=== PATIENT | female | born 1925 | race Caucasian/White ===

== ENCOUNTER 2017-06-03 11:04 | Inpatient (IN) | payer MEDICARE, BC ==
[~2017-06-03] VITALS: Ht 154.9 cm; Wt 52.5 kg
[~2017-06-03 11:04] MED LIST: AMLO5TAB96 PO; ATOR10 PO; CARB45TA OR; CEPH500 PO; ELTR75TA OR; FOLI5CAP PO; LACTCAP7 PO; LANS30 PO; LEVO.05 PO; LORTA5 PO; LOSA100T PO; METO50TA PO; METR-1 PO; MULT400T OR; OSCA200T PO; PERP2TAB PO; TAB-TAB PO; WARF2TAB PO
--- NOTE | 2017-06-03 11:47 | RADRPT ---
EXAM DATE/TIME: 06/03/2017 11:30 [facility] COMPARISON: No previous studies available for comparison. INDICATIONS : Pre Procedure Cardiac Cath. Evaluate for pneumonia, pneumothorax, and communicable diseases. MEDICAL HISTORY : None. SURGICAL HISTORY : Pacemaker. ENCOUNTER: Initial ACUITY: 1 day PAIN SCORE: 0/10 LOCATION: Bilateral chest FINDINGS: A single view of the chest demonstrates the lungs to be symmetrically aerated without evidence of mas s, infiltrate or effusion. There is some chronic pleural thickening in both apices. The heart size i s mildly enlarged.. There is a pacemaker overlying the left chest. Osseous structures are intact. CONCLUSION: No acute disease. Aleksey Au MD on June 03, 2017 at 11:44 Board Certified Radiologist. This report was verified electronically.
[2017-06-03] MEDS ORDERED: diphenhydrAMINE HCL 50 MG CAP PO SCH (12:00)
[2017-06-03 12:03] VITALS: BP 162/81; PULSE 71; RESP 18; TEMP 98.1; O2SAT 96
[2017-06-03] MEDS ORDERED: CARD120C4 PO (12:24)
[2017-06-03] MEDS ORDERED: LEVO50TA4 PO (12:24)
[2017-06-03] MEDS ORDERED: METO50TA PO (12:24)
[2017-06-03] MEDS ORDERED: MULT400T PO (12:24)
[2017-06-03] MEDS ORDERED: FOLI400T PO (12:24)
[2017-06-03] MEDS ORDERED: POTA10CA PO (12:24)
[2017-06-03] MEDS ORDERED: DIGO0.127 PO (12:24)
[2017-06-03] MEDS ORDERED: FURO20TA PO (12:24)
[2017-06-03] MEDS ORDERED: LIPI10TA PO (12:24)
[2017-06-03] MEDS ORDERED: LOSA50TA PO (12:24)
[2017-06-03] MEDS ORDERED: WARF-20 PO (12:24)
[2017-06-03] MEDS ORDERED: [UNRECOGNIZED DRUG - CODE] PO (12:24)
[2017-06-03] MEDS ORDERED: SERT25TA83 PO (12:24)
[2017-06-03] MEDS ORDERED: GUAI1TAB18 (12:24)
[2017-06-03 12:31] LABS: BASOPHIL % 0.4 % (0.0-2.0); EOSINOPHIL # 0.1 TH/MM3 (0-0.4); EOSINOPHIL % 0.6 % (0.0-4.0); HEMATOCRIT 42.2 % (35.0-46.0); HEMO FLAGS DIFF FINAL; LYMPH % 10.2 % (9.0-44.0); LYMPHOCYTE # 1.3 TH/MM3 (1.0-4.8); MEAN CELL VOLUME 87.3 FL (80.0-100.0); MEAN CORPUSCULAR HEMOGLOBIN 28.5 PG (27.0-34.0); MEAN CORPUSCULAR HGB CONC 32.7 % (32.0-36.0); MONO % 8.5 % (0.0-8.0); NEUT % 80.3 % (16.0-70.0); PLATELET COUNT 225 TH/MM3 (150-450); RED BLOOD COUNT 4.84 MIL/MM3 (4.00-5.30); WHITE BLOOD COUNT 12.5 TH/MM3 (4.0-11.0)
[2017-06-03 12:37] LABS: APTT (PATIENT) 30.3 SEC (24.3-30.1); INTERNATIONAL NORMALIZED RATIO 1.4 RATIO; PROTHROMBIN TIME - PATIENT 15.2 SEC (9.8-11.6)
[2017-06-03 12:39] LABS: BICARBONATE 31.5 MEQ/L (21.0-32.0); POTASSIUM 3.5 MEQ/L (3.5-5.1)
[2017-06-03 12:58] LABS: BLOOD, URINE NEG (NEG); COMMENT (UR) CULT NOT INDICATED; CULTURE IF INDICATED CULT NOT INDICATED; GLUCOSE,URINE NEG (NEG); KETONE, URINE NEG (NEG); MUCUS URINE FEW /lpf (OCC); NITRITE,URINE NEG (NEG); URINE COLOR LIGHT-YELLOW (YELLW/STRAW)
[2017-06-03] MEDS ORDERED: IOHEXOL 350 MG/ML 50 ML BTL (for Cath Lab) OTHER ONE (13:20)
[2017-06-03] MEDS ORDERED: MIDAZOLAM HCL 2 MG/2 ML VIAL ONE ×2 (13:32→14:50)
[2017-06-03] MEDS ORDERED: HEPARIN-NS/PF INJ 1,000 ML ONE (13:32)
[2017-06-03] MEDS ORDERED: SODIUM CHLORID 0.9% 500 ML INJ 500 ML ONE (13:32)
[2017-06-03] MEDS ORDERED: PHENYLEPHRINE HCL 10 MG/ML VIAL ONE ×4 (14:32→18:39)
[2017-06-03] MEDS ORDERED: DOPamine INJ PREMIX 500 ML ONE (14:39)
--- NOTE | 2017-06-03 14:58 | RADRPT ---
EXAM DATE/TIME: 06/03/2017 14:42 [facility] COMPARISON: CHEST SINGLE AP, June 03, 2017, 11:30. INDICATIONS : Short of breath. MEDICAL HISTORY : None. SURGICAL HISTORY : None. ENCOUNTER: Initial ACUITY: 1 day PAIN SCORE: Non-responsive. LOCATION: Bilateral chest FINDINGS: A single view of the chest demonstrates the lungs demonstrates interval development of diffuse inters titial prominence and airspace disease. Heart is mildly enlarged. Pacemaker is in stable position. Left costophrenic angle is blunted. CONCLUSION: Interval development of diffuse interstitial alveolar infiltrate characteristic of pulmonary edema. Small left effusion Edgar Lema MD on June 03, 2017 at 14:55 Board Certified Radiologist. This report was verified electronically.
[2017-06-03 15:05] VITALS: O2SAT 87
[2017-06-03 16:40] VITALS: O2SAT 88
[2017-06-03] MEDS ORDERED: ROCURONIUM INJ 50 MG/5 ML SYRINGE IV PUSH ONE (16:42)
[2017-06-03] MEDS ORDERED: ROCURONIUM INJ 50 MG/5 ML VIAL ONE (16:58)
[2017-06-03] MEDS ORDERED: ROCURONIUM INJ 50 MG/5 ML VIAL IV ONE (17:00)
--- NOTE | 2017-06-03 17:03 | PD.CONS ---
[facility] Service Critical Care Medicine Consult Requested By Dr. Corrales Reason for Consult Hemorrhagic shock Pulmonary artery rupture Massive hemoptysis Acute hypoxemic respiratory failure Anemia requiring transfusion Primary Care Physician Jamie Funk MD History of Present Illness I was emergently called to labor standards director by Dr. Corrales. Ms. Mahoney who is 89 yo female with history of severe aortic stenosis was undergoing left and right heart catheter for TAVR evaluation. With right heart catheterization patient developed acute massive hemoptysis with shock secondary to acute rupture of pulmonary artery. Patient was intubated by Dr. Potter and ETT was advance to Right lung for selective right lung ventilation due to massive hemorrhage from Left lung. On my arrival to labor standards director, patient was rapidly dropping blood pressure. Dopamine was already started. I ordered Shantanu-Synephrine, at 300 mcg/ m in an attempt to increase MAP and also increase the pulmonary vasoconstriction. Levophed was also added to maintain blood pressure and rapidly titrated up. Emergency release blood initially 3 units was ordered stat along with 2 units of FFP, 1 unit of platelet. I also emergently contacted Dr. Vásquez was in the office. (Dr. Bedoya the on-call CT surgeon was operating). While on Levophed Shantanu-Synephrine and dopamine, patient developed coarse V. fib/V. tach, received brief CPR, and was DC cardioverted 1 with return of spontaneous circulation and sinus rhythm. I discussed with Dr. Corrales and anesthesiologist, I also contacted Dr. Josue from invasive radiology.Dr. Josue immediately arrived to the labor standards director. Dr. Abdelrahman francis performed PARVIN which showed vigorous LV contraction but cavity was empty. Received Continuous massive fluid resuscitation with multiple crystalloid boluses, bicarbonate and calcium. Blood arrived and initially 3 units of PRBC, 2 units of 1 unit of platelets was given with calcium total 3 g given after blood transfusion. Because of persistent hypotension, additional 2 units of PRBC was given. While I resuscitated the patient, Dr. Corrales and Dr. Jennings performed right heart cath, identified bleeding of a small branch in the left pulmonary artery. They put put in a 6 coils in the lower left lower pulmonary artery followed with Gelfoam closing the perforation. Review of Systems ROS Limitations: Unresponsive Past Family Social History Allergies: Coded Allergies: Sulfa (Sulfonamide Antibiotics) (Unverified Allergy, Severe, 06/03/17) promethazine (Unverified Allergy, Severe, 06/03/17) adhesive (Unverified Allergy, Unknown, 06/03/17) Past Medical History Unable to obtain at this time other than severe Past Surgical History Unable to obtain at this time Reported Medications Unable to obtain at this time Active Ordered Medications Reviewed Family History Unable to obtain Social History Unable to obtain Physical Exam Vital Signs Vital Signs Date Time Temp Pulse Resp B/P (MAP) Pulse Ox O2 Delivery O2 Flow Rate FiO2 06/03/17 12:03 98.1 71 18 162/81 (108) 96 Physical Exam GENERAL: Intubated unresponsive, neuromuscularly paralyzed anesthesia SKIN: Skin /dry. ENT: Orotracheally intubated. Massive of hemoptysis from ETT NECK: Trachea midline. CARDIOVASCULAR: Regular rate and rhythm. Profound shock on 3 pressors RESPIRATORY: Bilateral coarse rhonchi and crackles. Diminished air entry in the left lung due to GASTROINTESTINAL: Abdomen distended MUSCULOSKELETAL: Bilateral groin Cordis and sheath NEUROLOGICAL: Patient is intubated, reason neuromuscular paralysis limits exam Laboratory Laboratory Tests Test 06/03/17 11:45 06/03/17 11:55 Urine Color LIGHT-YELLOW Urine Turbidity CLEAR Urine pH 5.0 Urine Specific [place] 1.010 Urine Protein NEG Urine Glucose (UA) NEG Urine Ketones NEG Urine Occult Blood NEG Urine Nitrite NEG Urine Bilirubin NEG Urine Urobilinogen LESS THAN 2.0 Urine Leukocyte Esterase NEG Urine WBC LESS THAN 1 Urine Mucus FEW Microscopic Urinalysis Comment CULT NOT INDICATED White Blood Count 12.5 Red Blood Count 4.84 Hemoglobin 13.8 Hematocrit 42.2 Mean Corpuscular Volume 87.3 Mean Corpuscular Hemoglobin 28.5 Mean Corpuscular Hemoglobin Concent 32.7 Red Cell Distribution Width 14.0 Platelet Count 225 Mean Platelet Volume 8.3 Neutrophils (%) (Auto) 80.3 Lymphocytes (%) (Auto) 10.2 Monocytes (%) (Auto) 8.5 Eosinophils (%) (Auto) 0.6 Basophils (%) (Auto) 0.4 Neutrophils # (Auto) 10.0 Lymphocytes # (Auto) 1.3 Monocytes # (Auto) 1.1 Eosinophils # (Auto) 0.1 Basophils # (Auto) 0.0 CBC Comment DIFF FINAL Differential Comment Prothrombin Time 15.2 Prothromb Time International Ratio 1.4 Activated Partial Thromboplast Time 30.3 Blood Urea Nitrogen 19 Creatinine 0.90 Random Glucose 87 Albumin 4.2 Calcium Level 9.2 Sodium Level 137 Potassium Level 3.5 Chloride Level 98 Carbon Dioxide Level 31.5 Anion Gap 8 Estimat Glomerular Filtration Rate 59 Result Diagram: 06/03/17 1155 06/03/17 1155 Assessment and Plan Assessment and Plan A/P PLEASE SEE HPI ALSO NEURO: Keep on Versed and fentanyl for sedation and vent synchrony Neuromuscular paralysis as needed RESP: Massive hemoptysis Left peripheral pulmonary artery rupture with massive hemorrhage Acute hypoxemic respiratory failure Small R apical pneumothorax - PC/AC mechanical ventilation PEEP of 8, - Small apical pneumothorax may need chest tube, discussed with Dr. Frost - s/p Bronchoscopy with removal of blood predominantly from L lung - DuoNeb q 6hours and PRN - Plan for R chest tube CV/Heme: Profound hemorrhagic shock Anemia requiring transfusion Severe - Initially was on Levophed dopamine and Shantanu-Synephrine - Currently only on Shantanu-Synephrine. Titrate to keep map above 65 - Shantanu-Synephrine may also help with pulmonary vasoconstriction, which may help control the bleed - Trend lactic acid - Received 6 units of emergency release blood, 2 units of FFP and one of platelets - Multiple crystalloid boluses given - PARVIN normal LV contractility, volume depletion GI: - Nothing by mouth, OGT tube, IV Protonix : - Monitor renal function closely. Payne catheter. Urine output adequate ID: - Margaret Cath antibiotics per Dr. Corrales ENDO: - Replace electrolytes per protocol PROPH: - Bilateral lower extremity SCDs. IV Protonix. Chemical DVT prophylaxis contraindicated LINES: - Bilateral cordis in place CC time 135 min excluding procedure Code Status Full Discussed Condition With Thalia Hall. Lukas and Tanika Padron MD Jun 03, 2017 17:03
--- NOTE | 2017-06-03 17:04 | CATHPROC ---
[facility] HIS Report Study Information Study Number Admission Scheduled Start Study Start [id number] Jun 03 2017 11:04AM 06/03/2017 Jun 03 2017 1:20PM [facility] Cardiac Catheterization Admit Source Facility Department Other [facility] - Relations Manager Physician and Clinical Staff Initial MD Page, Brad Container Filler Khanh Redman,FAITH Recorder Abdelrahman Rodríguez,GEOPHYSICAL LABORATORY CHIEF(BS) Scrub Radha Brandon,RT(R) (BS) Procedures Performed Procedure Location (Site) Vessel Name Coronary Angiograms LCA Left Coronary Coronary Angiograms RCA Right Coronary Coronary Angiograms Pulm. Artery (left) Pulmonary Art. Wire insertion Fem Art (left) Femoral Art Equipment Time Dealership Manager Description Size Mfg Part Number Used/Scraped PERCLOSE, PRO GLIDE CLOSER 15:56 [employer] FR 6 [id number] *[id number] Used DEVICE [id number] 14:19 GUERRERO HOANG SWAN ZEE CATHETER FR 7 Used *[id number] 15:02 GUERRERO HOANG SWAN ZEE CATHETER FR 7 Used *[id number] SHEATH SET, FR12 CHECK-SABAS RCF-12.0-38-J 15:16 COOK/PACER FR12 Used 13CM *[id number] [id number] *[id number] [id number] *[id number] [id number] *[id number] [id number] *[id number] WIRE, HYDROSTEER 150CM [id number] 14:02 DAIG/ST. EFREN MEDICAL 150CM Used ANGLED GLIDE *[id number] WIRE, AMPLATZ SUPER STIFF 14:09 Med[employer]ch .035 81012 *[id number] Used STRT [id number]-[id number]-11- 14:08 [employer] MEDICAL SHEATH, FR6.5 PRELUDE 11CM FR 6.5 038ACT Used *[id number] 14:05 [employer] MEDICAL WIRE, 3MMJ .035 180CM 180CM Used *[id number] 14:03 [employer]COMED OMNIPAQUE, 350 MG, 150ML 150ML [id number] Used [id number] 13:58 TERUMO MEDICAL SHEATH, FR5 TERUMO (10CM) FR 5 Used *[id number] 13:56 TERUMO MEDICAL SHEATH, FR7 TERUMO (10CM) FR 7 Used *[id number] 14:14 VASCULAR SOLUTIONS PIGTAIL DUAL LUMEN CATHETER FR 6 5540 *[id number] Used Equipment Model, Serial, Lot Number and Expiration Data Description Model Number Serial Number Lot Number Expiration Date SHEATH SET, FR12 CHECK-SABAS [id number] 01-07-2020 13CM WIRE, AMPLATZ SUPER STIFF STRT [id number] 02-24-2020 History: Current Medications Medication Dosage/Unit Route Frequency Last Date/Time Taken Beta Tung Coumadin Statins (any) History: Allergies Allergy Reaction Sulfa (Sulfonamide Antibiotics) adhesive promethazine History: Risk Factors Family History of Hypertension Dyslipidemia Previous ID Previous Heart Failure Premature CAD No No No Yes No Prior Valve Prior PCI Prior PCIDate Prior CABG Surgery No Yes 08/18/1988 No Cerebrovascular Peripheral Artery Chronic Lung On Dialysis Diabetes Disease Disease Disease No Yes No Yes No History: Other Current Smoker No Labs Hgb (g/dl) Hct (%) WBC (l/cumm) Platelets (thousands) 11.60-17.00 35.00-51.00 4.00-11.00 150.00-450.00 13.8 42.2 12.5 225 Glucose (mg/dl) BUN (mg/dl) Creatinine (mg/dl) BUN:Creatinine (1:x) 74.00-106.00 7.00-18.00 0.50-1.30 10.00-20.00 87 19 0.9 21.1 Na (meq/l) K (meq/l) 136.00-145.00 3.50-5.10 137 3.5 INR (PTT:PT) 0.90-1.10 1.4 CPK-MB (ng/ML) 0.50-3.60 Not Drawn Medication Medication Total Dose (Bolus/Oral) Medication Total Dosage/Unit 1% XYLOCAINE 20 mL FENTANYL 25 mcg VERSED 1 mg Medications (Bolus/Oral) Medication Time Given Dosage/Unit Administered By Reason VERSED 06/03/2017 1:55:20 PM 1 mg Khanh Redman 1 mg VERSED given in lab by Khanh Redman RN in Left Antecubital via Peripheral IV. Ordered by Brad Harvey. FENTANYL 06/03/2017 1:55:21 PM 25 mcg Khanh Redman 25 mcg FENTANYL given in lab by Khanh Redman RN in Left Antecubital via Peripheral IV. Ordered by Brad Page. 1% XYLOCAINE 06/03/2017 1:55:22 PM 20 mL Patient arrived on 20 mL 1% XYLOCAINE via Subcutaneous. Medication (Drip) Medication Time Given Dosage/Unit Concentration/Unit Diluent (ml) Solution IV Solutions 06/03/2017 1:38:14 PM 0 mL (IV) 500 NaCl .9 Patient arrived on IV Solutions in Left Antecubital via Peripheral IV. Pump/Drip Flow = 20 ml/hr usin g NaCl .9. Initial Case Assessment Cardiovascular HR Rhythm NIBP Chest Pain 69 IRR 164/76 0 Edema Present Skin color Skin None Normal Warm Dry Circulatory - Right Pulses Dorsalis Pedis Femoral 2 2 Scale (0,1,2,3,4,d) Circulatory - Left Pulses Dorsalis Pedis Femoral 2 2 Scale (0,1,2,3,4,d) Circulatory - Lower Extremities Color Lower Right Color Lower Left Normal Normal Neurological State Oriented to time-place- Alert Moves all extremities person Respiration - General Respiration Rate SpO2 (%) (B/min) 14 93 Chronological Log Time Study Chronological Log 13:22:44 Patient arrived via Bed. 13:22:45 Patient Name, D.O.B, / Armband Verified By R.N. 13:24:15 Consent signed by the physician and the patient and verified by the Relations Manager staff. 13:24:17 Pre-op and post- op instructions given; patient acknowledges understanding of instructions. Vitals capture started with the following parameters, Patient=Adult, Interval=5 min, Initial Pr lpzcrd=180 mmHg, 13:33:17 Deflation Rate=5 mmHg, Cuff placed on Left Arm 13:34:25 HR=70 bpm, EZIO=365/75 mmhg, SpO2=92.0 %, Resp=11 B/min, Pain=0, Vinicius=10, Bradford=2 13:37:00 History and physical on the chart or being dictated. 13:38:05 Patient has been NPO for More than 6Hrs. 13:38:06 Skin Breakdown- 13:38:08 Patient Warmer Placed on the Table. 13:38:13 A # 20 IV was noted in the Antecubital (left). Grade = 0 13:38:14 Patient arrived on IV Solutions in Left Antecubital via Peripheral IV. Pump/Drip Flow = 20 ml/hr using NaCl .9. Assessment: Initial Case, HR=69 BPM, Rhythm=IRR, GTGO=249/76 mmhg, Chest Pain=0, Edema=None, Color=Normal, Skin = Warm, Dry Right Pulses: Aniceto Ped=2, Femoral=2 Left Pulses: Aniceto Ped=2, Femoral=2 13:38:16 Lower Right Extremities: Color=Normal Lower Left Extremities: Color=Normal Neurological: State=Alert, Ox3, MCINTYRE Respiration: Resp=14 B/min, SpO2=93 % 13:38:55 HR=72 bpm, CBUV=492/76 mmhg, SpO2=91.0 %, Resp=25 B/min, Pain=0, Vinicius=10, Bradford=2 13:43:57 HR=73 bpm, BBFN=298/78 mmhg, SpO2=93.0 %, Resp=10 B/min, Pain=0, Vinicius=10, Bradford=2 13:45:00 MD paged 13:48:39 Right groin prepped with 2% chlorhexidine, and draped after a 3 min. waiting time. 13:48:58 HR=73 bpm, XSGG=821/77 mmhg, SpO2=95.0 %, Resp=13 B/min, Pain=0, Vinicius=10, Bradford=2 13:53:55 HR=75 bpm, GGSU=339/101 mmhg, SpO2=91.0 %, Resp=26 B/min, Pain=0, Vinicius=10, Bradford=2 13:54:16 MD arrived. Time Out. Correct patient, correct procedure, correct physician, power injector not loaded with contrast with surgical 13:55:18 team present. Time Out Concurred by MD and individual staff in procedure. 13:55:20 Case Start 13:55:20 1 mg VERSED given in lab by Khanh Redman, FAITH in Left Antecubital via Peripheral IV. Order ed by Brad Page. 13:55:21 25 mcg FENTANYL given in lab by Khanh Redman, RN in Left Antecubital via Peripheral IV. O rdered by Brad Page. 13:55:22 Patient arrived on 20 mL 1% XYLOCAINE via Subcutaneous. 13:56:39 Reference ECG taken 13:57:06 Access site was Left Femoral Artery. 13:57:16 A SHEATH, FR5 TERUMO (10CM) FR 5 was advanced into the Fem Art (left) using the Percutaneou s technique. 13:58:33 Access site was Left Femoral Vein. 13:58:58 HR=69 bpm, MOBW=143/67 mmhg, SpO2=87.0 %, Resp=19 B/min, Pain=0, Vinicius=10, Bradford=2 13:59:58 A SHEATH, FR7 TERUMO (10CM) FR 7 was advanced into the Fem Vein (left) using the Percutaneo us technique. A JR 4.0 INFINITI CATHETER FR 5 was advanced over a wire. OMNIPAQUE, 350 MG, 150ML 150ML was us ed for 14:01:23 injections. 14:03:37 The RCA was injected and visualized at various angles. OMNIPAQUE, 350 MG, 150ML 150ML used . 14:03:53 HR=69 bpm, ZTSP=497/78 mmhg, SpO2=94.0 %, Resp=17 B/min, Pain=0, Vinicius=10, Bradford=2 After removing the current catheter a JL 4.0 INFINITI CATHETER FR 5 was advanced over a WIRE, 3 MMJ .035 180CM 14:04:54 180CM. 14:08:33 The LCA was injected and visualized at various angles. OMNIPAQUE, 350 MG, 150ML 150ML used . 14:08:56 HR=70 bpm, WGAC=543/75 mmhg, SpO2=96.0 %, Resp=28 B/min, Pain=0, Vinicius=10, Bradford=2 14:09:50 Catheter was removed A SHEATH, FR6.5 PRELUDE 11CM FR 6.5 was exchanged in the Fem Art (left). This was necessary in order to 14:10:02 accomodate a larger catheter. A AL 1 INFINITI CATHETER FR 5 was advanced over a wire. OMNIPAQUE, 350 MG, 150ML 150ML was used for 14:10:24 injections. 14:10:44 Pressure channel 1 zeroed. 14:11:09 A WIRE, AMPLATZ SUPER STIFF STRT .035 was inserted via Fem Art (left). 14:12:36 Pressure channel 2 zeroed. After removing the current catheter a PIGTAIL DUAL LUMEN CATHETER FR 6 was advanced over a WIRE , AMPLATZ 14:13:34 SUPER STIFF STRT .035. 14:13:57 HR=72 bpm, LUIU=351/84 mmhg, SpO2=96.0 %, Resp=17 B/min Recorded Pressure: LV, HR=71, Condition=Condition 1 14:16:01 (Left Ventricle) LV 197/8/12 Recorded Pressure: LV, Ao, HR=70, Condition=Condition 1 14:16:25 (Left Ventricle) LV 204/8/13, (Aorta) Ao 169/67/105 14:17:42 Catheter was removed 14:18:23 A SWAN ZEE CATHETER FR 7 was inserted via Fem Vein (left) 14:18:54 HR=79 bpm, UDJX=111/81 mmhg, SpO2=95.0 %, Resp=20 B/min, Pain=0, Vinicius=10, Bradford=2 Recorded Pressure: PCW, HR=72, Condition=Condition 1 14:22:18 (Pulmonary Capillary Wedge) PCW Recorded Pressure: MPA, HR=72, Condition=Condition 1 14:22:45 (Main Pulmonary Artery) MPA 14:23:16 Saturation: Site=PA (Pulmonary Artery) , O2=71.3 %, Hgb=13.8 gm/dl, Condition=Condition 1. Used in calculation. Recorded Pressure: RV, HR=81, Condition=Condition 1 14:23:53 (Right Ventricle) RV 38/5/7 14:23:55 EP=666 bpm, BHCA=422/100 mmhg, SpO2=93.0 %, Resp=24 B/min, Pain=0, Vinicius=10, Bradford=2 Recorded Pressure: RA, HR=82, Condition=Condition 1 14:24:18 (Right Atrium) RA 14:28:31 [place] Zee Catheter Removed 14::31 ANESTHESIA CALLED PER PHYSICIAN 14:30:21 Oral Intubation Performed 14:30:55 HR=68 bpm, NIBP=70/34 mmhg, SpO2=53.0 %, Resp=7 B/min, Pain=0, Vinicius=10, Bradford=2 14:31:21 NIBP STAT measurement started. 14:31:44 HR=75 bpm, NIBP=74/38 mmhg, Resp=18 B/min, Pain=0, Vinicius=10, Bradford=2 14:33:26 NIBP STAT measurement started. 14:34:09 Activated Clotting Time Drawn 14:34:22 HR=75 bpm, KNXM=767/51 mmhg, SpO2=99.0 %, Resp=25 B/min, Pain=0, Vinicius=10, Bradford=2 Recorded Pressure: Ao, HR=75, Condition=Condition 1 14:34:30 (Aorta) Ao 147/42/73 14:38:58 HR=69 bpm, NIBP=87/42 mmhg, Resp=13 B/min, Pain=0, Vinicius=10, Bradford=2 Recorded Pressure: Ao, HR=97, Condition=Condition 1 14:39:33 (Aorta) Ao 87/44/59 14:45:17 Vitals capture stopped. 14:46:36 RESPIRATORY PAGED STAT 14:52:54 CPR started 14:53:14 CPR continues 14:55:00 CPR stopped Vitals capture started with the following parameters, Patient=Adult, Interval=5 min, Initial Pr rmwioo=461 mmHg, 14:57:47 Deflation Rate=5 mmHg, Cuff placed on Left Arm 14:58:26 IS=300 bpm, VJVG=983/81 mmhg, IjW6=965.0 %, Resp=26 B/min, Pain=0, Vinicius=10, Bradford=2 14:58:39 FIRST UNIT OF BLOOD BEING GIVEN 15:01:20 A PIGTAIL STR. INFINITI CATHETER FR 5 was inserted via Fem Vein (left) 15:02:49 SECOND UNIT OF BLOOD BEING GIVEN 15:03:55 HR=83 bpm, AAKB=388/65 mmhg, SpO2=93.0 %, Resp=13 B/min, Pain=0, Vinicius=10, Bradford=2 15:08:20 HR=80 bpm, HTBR=665/82 mmhg, JoO1=153.0 %, Resp=16 B/min, Pain=0, Vinicius=10, Bradford=2 After removing the current catheter a JR 4.0 INFINITI CATHETER FR 5 was advanced over a WIRE, 3 MMJ .035 180CM 15:09:25 180CM. 15:09:42 DR NATHAN, DR QUIGLEY, DR. KLIOZE ASSISTING 15:12:00 The Pulm. Artery (left) was injected and visualized at various angles. OMNIPAQUE, 350 MG, 1 50ML 150ML used. 15:13:21 HR=73 bpm, ICSO=007/70 mmhg, SpO2=99.0 %, Resp=21 B/min, Pain=0, Vinicius=10, Bradford=2 A SHEATH SET, FR12 CHECK-SABAS 13CM FR12 was advanced into the Fem Vein (right) using the Percuta neous 15:16:30 technique. 15:16:31 Catheter was removed 15:18:26 HR=78 bpm, SNZQ=857/66 mmhg, NaD3=690.0 %, Resp=20 B/min, Pain=0, Vinicius=10, Bradford=2 15:20:48 OCCLUSION BALLOON INSERTED IN THE LPA, INJECTED 15:23:15 HR=79 bpm, UVMJ=871/86 mmhg, IaI1=111.0 %, Resp=16 B/min, Pain=0, Vinicius=10, Bradford=2 15:26:00 EMBOLIZATION COILS PLACED IN LEFT PULMONARY ARTERY 15:28:20 HR=75 bpm, EUWC=722/71 mmhg, ZlT9=705.0 %, Resp=17 B/min, Pain=0, Vinicius=10, Bradford=2 15:33:21 HR=87 bpm, TPYZ=290/82 mmhg, SpO2=99.0 %, Resp=15 B/min, Pain=0, Vinicius=10, Bradford=2 15:36:47 GEL FOAM INECTED THROUGH CATHETER INTO PULMONARY ARTERY 15:38:59 Vitals capture stopped. 15:44:57 Catheter was removed 15:45:00 Case End 15:54:58 PERCLOSE, PRO GLIDE CLOSER DEVICE FR 6 placement in the Fem Vein (right) 16:03:42 In the Fem Art (left) the SHEATH, FR6.5 PRELUDE 11CM FR 6.[address] by Brad Patel. 16:03:54 In the Fem Vein (left) the SHEATH, FR7 TERUMO (10CM) FR [address] by Brad Stoll. 16:04:00 Case complication noted. Pulmonary Artery Rupture 16:04:05 Sterile dressing applied to site 16:04:16 Cine recording checked. 16:04:48 Bedside Report will be given. 16:05:35 Contrast Scanned 16:05:45 A Left and Right Heart Cath was performed. 16:13:57 Patient moved to stretcher Saturation: Site=Ao (Aorta) , O2=98.2 %, Hgb=13.8 gm/dl, Condition=Condition 1. Used in calcula tion. Oxygen 16:28:59 measurement taken from blood mekhi. Used to calculate output. End Study - Contrast Media Used In Study Contrast Total Opened (mL) Total Used (mL) Total Wasted (mL) Omnipaque 180 180 0 End Study - Maximum Contrast Load Max Contrast Load (mL) 288.9 End Study - Radiation Exposure Fluoro Time (minutes) 26.9 End Study - Patient Disposition Complications Transferred To Not selected Critical Care Bed
[2017-06-03] MEDS ORDERED: MIDAZOLAM HCL 5 MG/ML VIAL (1 ML) ONE (17:06)
[2017-06-03] MEDS ORDERED: EPINEPHrine HCL (1:10,000) 1 MG/10 ML SYRINGE ONE (17:14)
[2017-06-03] MEDS ORDERED: MIDAZOLAM HCL 5 MG/5 ML VIAL IV PUSH ONE (17:15)
[2017-06-03 17:31] LABS: BLOOD GAS BASE EXCESS -5.3 mmol/L (-2-2); BLOOD GAS CARBOXYHEMOGLOBIN 0.7 % (0-4); BLOOD GAS HCO3 22 mmol/L (22-26); BLOOD GAS METHEMOGLOBIN 0.7 % (0-2); BLOOD GAS O2 HGB SATURATION 98 % (90-100); BLOOD GAS PCO2 64 mmHg (38-42); BLOOD GAS PO2 328 mmHg (61-120); BLOOD GAS TOTAL HGB 6.6 G/DL (12.0-16.0); TEMP CORR TO 98.6
[2017-06-03 17:32] LABS: CRITICAL VALUE YES
[2017-06-03 17:33] LABS: DRAW SITE CL; FIO2 100 %; NUMBER OF ARTERIAL PUNCTURES 1; OXYGEN DEVICE MASK; STAT YES; ULNAR PULSE Y
[2017-06-03 17:35] VITALS: O2SAT 88
[2017-06-03 17:38] LABS: BLOOD GAS BASE EXCESS -9.2 mmol/L (-2-2); BLOOD GAS CARBOXYHEMOGLOBIN 0.8 % (0-4); BLOOD GAS HCO3 19 mmol/L (22-26); BLOOD GAS METHEMOGLOBIN 0.9 % (0-2); BLOOD GAS O2 HGB SATURATION 94 % (90-100); BLOOD GAS OXYGEN CONTENT 14.3 Vol % (12.0-20.0); BLOOD GAS PCO2 68 mmHg (38-42); BLOOD GAS PO2 100 mmHg (61-120); BLOOD GAS TOTAL HGB 10.7 G/DL (12.0-16.0); TEMP CORR TO 98.6
[2017-06-03 17:39] LABS: CRITICAL VALUE YES; DRAW SITE CL; FIO2 100 %; NUMBER OF ARTERIAL PUNCTURES 1; OXYGEN DEVICE MASK; STAT YES; ULNAR PULSE Y
[2017-06-03 18:07] LABS: BLOOD GAS BASE EXCESS -6.2 mmol/L (-2-2); BLOOD GAS CARBOXYHEMOGLOBIN 1.4 % (0-4); BLOOD GAS HCO3 19 mmol/L (22-26); BLOOD GAS METHEMOGLOBIN 1.2 % (0-2); BLOOD GAS O2 HGB SATURATION 91 % (90-100); BLOOD GAS OXYGEN CONTENT 16.8 Vol % (12.0-20.0); BLOOD GAS PCO2 43 mmHg (38-42); BLOOD GAS PO2 69 mmHg (61-120); BLOOD GAS TOTAL HGB 13.1 G/DL (12.0-16.0); CRITICAL VALUE YES; OXYGEN DEVICE VENTILATOR; TEMP CORR TO 98.6
[2017-06-03 18:09] LABS: DRAW SITE ART LINE; FIO2 90 %; STAT YES
[2017-06-03] MEDS ORDERED: TERBUTALINE INJ 1 MG/ML AMP SQ PRN ×3 (18:15→23:15)
[2017-06-03] MEDS ORDERED: FUROSEMIDE 20 MG/2 ML VIAL IV PUSH ONE (18:15)
[2017-06-03] MEDS ORDERED: PHENYLEPHRINE INJ 40 MG in DEXTROSE 5% IN WATE 500 ML INJ 496 ML IV PRN ×2 (18:15)
[2017-06-03] MEDS ORDERED: FUROSEMIDE 40 MG/4 ML VIAL ONE (18:16)
[2017-06-03 18:31] LABS: AUTOMATED NEUTROPHIL # 30.7 TH/MM3 (1.8-7.7); BASOPHIL # 0.1 TH/MM3 (0-0.2); BASOPHIL % 0.2 % (0.0-2.0); EOSINOPHIL # 0.1 TH/MM3 (0-0.4); EOSINOPHIL % 0.2 % (0.0-4.0); HEMATOCRIT 39.9 % (35.0-46.0); LYMPH % 5.7 % (9.0-44.0); MEAN CELL VOLUME 85.1 FL (80.0-100.0); MEAN CORPUSCULAR HEMOGLOBIN 29.1 PG (27.0-34.0); MEAN CORPUSCULAR HGB CONC 34.1 % (32.0-36.0); MONO % 4.9 % (0.0-8.0); PLATELET COUNT 131 TH/MM3 (150-450); RED BLOOD COUNT 4.69 MIL/MM3 (4.00-5.30); RED CELL DISTRIBUTION WIDTH 15.4 % (11.6-17.2); WHITE BLOOD COUNT 34.5 TH/MM3 (4.0-11.0)
[2017-06-03 18:35] LABS: HEMO FLAGS AUTO DIFF
[2017-06-03 18:41] LABS: APTT (PATIENT) 29.4 SEC (24.3-30.1); INTERNATIONAL NORMALIZED RATIO 1.4 RATIO; PROTHROMBIN TIME - PATIENT 15.4 SEC (9.8-11.6)
--- NOTE | 2017-06-03 18:44 | RADRPT ---
EXAM DATE/TIME: 06/03/2017 17:58 [facility] COMPARISON: CHEST SINGLE AP, June 03, 2017, 14:42. INDICATIONS : Respiratory disease, short of breath. MEDICAL HISTORY : None. SURGICAL HISTORY : None. ENCOUNTER: Initial ACUITY: 1 day PAIN SCORE: 0/10 LOCATION: Bilateral chest FINDINGS: There is an approximate 2.4 cm right apical pneumothorax not present previously. Lines and tubes are present not significantly changed. There is a large left pleural effusion worse since the prior study with worsening bilateral air space process probably worsening pulmonary edema. CONCLUSION: 1. Interval development of a small right apical pneumothorax. 2. Worsening left pleural effusion and probable worsening pulmonary edema. Findings were discussed with Dr. Esquivel on 06/03/2017 18:40 hours at the time of this dictation. Savana Valdovinos MD on June 03, 2017 at 18:37 Board Certified Radiologist. This report was verified electronically.
--- NOTE | 2017-06-03 18:45 | RADRPT ---
EXAM DATE/TIME: 06/03/2017 18:04 [facility] COMPARISON: No previous studies available for comparison. INDICATIONS : Confirm NG tube placement. MEDICAL HISTORY : None. SURGICAL HISTORY : None. ENCOUNTER: Initial ACUITY: 1 day PAIN SCORE: 0/10 LOCATION: Bilateral abdomen FINDINGS: NG tube is present with tip coiled in the stomach. There is a large left pleural effusion. CONCLUSION: Tip of the NG tube appears to be coiled in the stomach. Savana Valdovinos MD on June 03, 2017 at 18:43 Board Certified Radiologist. This report was verified electronically.
[2017-06-03 18:54] LABS: ALKALINE PHOSPHATASE 90 U/L (45-117); ALT (GPT) 125 U/L (10-53); ANION GAP 10 MEQ/L (5-15); AST (GOT) 175 U/L (15-37); BLOOD UREA NITROGEN 16 MG/DL (7-18); CHLORIDE 113 MEQ/L (98-107); GLOMERULAR FILTRATION RATE 75 ML/MIN (>89); MAGNESIUM 1.5 MG/DL (1.5-2.5); SODIUM (NA) 146 MEQ/L (136-145); TOTAL BILIRUBIN ADULT 1.3 MG/DL (0.2-1.0)
[2017-06-03 19:00] LABS: POTASSIUM 2.8 MEQ/L (3.5-5.1)
--- NOTE | 2017-06-03 19:06 | PD.PROCEDR ---
Procedure Note Procedure Procedure: Therapeutic and diagnostic bronchoscopy Description of procedure: Usual ICU monitoring in place, on mechanical ventilation. The scope was passed through the elbow side-port of the vent circuit. Patient's ETT was deliberately in the Left main bronchus. There was a moderate amount of blood which were suctioned out from right lung. ET tube was carefully withdrawn to the main mikel and there was large amount of blood pouring from the left lung into the right lung. With multiple attempts the left lung bronchi were suctioned clear of blood with multiple saline lavage and suctioning. After extensive suctioning patient did not have any active bleeding into the left lung field or the right lung .The tracheobronchial tree showed no inflammation and anatomical branching was normal. Tanika Esquivel MD Jun 03, 2017 19:06
[2017-06-03] MEDS ORDERED: POTASSIUM PHOSPHATE MONOBASIC 500 MG TAB PO PRN (19:15)
[2017-06-03] MEDS ORDERED: MAGNESIUM OXIDE 400 MG TAB PO PRN (19:15)
[2017-06-03] MEDS ORDERED: POTASSIUM CHLOR 20 MEQ PREMIX 100 ML IV PRN (19:15)
[2017-06-03] MEDS ORDERED: POTASSIUM CHLORIDE 25 MEQ EFFERVESCENT TAB PO PRN (19:15)
[2017-06-03] MEDS ORDERED: POTASSIUM PHOSPHATE MONOBASIC 500 MG TAB PO/TUBE PRN (19:15)
[2017-06-03] MEDS ORDERED: SODIUM PHOSPHATE INJ 30 MMOL in SODIUM CHLOR 0.9% 250 ML INJ 240 ML IV PRN (19:15)
[2017-06-03] MEDS ORDERED: MAGNESIUM SULFATE INJ 4 GM in SODIUM CHLORIDE 0.9% INJ 92 ML IV PRN (19:15)
[2017-06-03 19:18] LABS: BANDS 6 % (0-6); METAMYELOCYTES 2 % (0-1); NEUTROPHIL # MANUAL DIFF 31.1 TH/MM3 (1.8-7.7); POLYS (SEG NEUTROPHILS) 82 % (16-70); WBC DIFF SAMPLE 100
[2017-06-03 19:19] LABS: PLATELET ESTIMATE SMEAR LOW (NORMAL); PLATELET MORPHOLOGY NORMAL (NORMAL); SCAN/DIFF FINAL DIFF MANUAL
[2017-06-03 19:20] LABS: ACANTHOCYTES 1+ (NORMAL); OVALOCYTES 1+ (NORMAL)
--- NOTE | 2017-06-03 19:20 | MA ---
cc: BEBEBRAD Michelle DATE 06/03/2017 DATE OF 1925 Pre Procedure Diagnosis: 1. Severe Symptomatic Aortic Stenosis 2. Atrial Fibrillation on chronic oral anticoagulation 3. Deconditioning. 4. 2/4 Frail 5. Immune Thrombocytopenia 6. HTN 7. Hyperlipidemia 8. Acute on chronic Diastolic Heart Failure Post-Procedure Diagnosis: 1. Severe Symptomatic Aortic Stenosis 2. Atrial Fibrillation on chronic oral anticoagulation 3. Deconditioning. 4. 2/4 Frail 5. Immune Thrombocytopenia 6. HTN 7. Hyperlipidemia 8. Acute on chronic Diastolic Heart Failure PROCEDURE PERFORMED 1. Left heart catheterization. 2. Selective right and left coronary angiography 3. Aortic & LV hemodynamics 2. Right heart catheterization. 3. Successful embolization of left pulmonary artery INDICATION Preoperative evaluation severe aortic stenosis. Class I recommendation per ACC/ AHA guidelines (cardiac catheterization for hemodynamic assessment is recommended in symptomatic patients when noninvasive measures are inconclusive or when there is a discrepancies on TTE and the physical examination). Ms Mahoney has an echocardiogram showing moderate Aortic stenosis despite worsening complaints of severe shortness of breath with minimal exertion and a physical exam or loud systolic ejection murmur radiating to carotids and of late peaking. Echo shows preserved LV systolic function. Risk benefits of left and righ heart cath have been explained to the patient, including bleeding, acute kidney injury, neurovascular trauma, emergent open heart surgery, stroke and . She understands risks and is willing to proceed. DESCRIPTION OF PROCEDURE Consent is signed. The patient was brought into the cardiac cath in a fasting state. The right and left groins were prepped and draped in sterile fashion. Using 1% lidocaine for local anesthesia and a micropuncture kit a 5-Vietnamese sheath was inserted into the left common femoral artery then selective right and left coronary angiography was performed with a JR-4 and JL-4 diagnostic catheters. Angiography was taken in multiple views. Then an AL 5-Vietnamese diagnostic catheter over a straight Amplatz wire was used to cross the aortic valve which seemed to be calcified. Then leaving the wire in the ventricle the catheter was exchanged to a dual-lumen pigtail catheter for simultaneous pressure recordings. Please refer to the results for results of the hemodynamics. Then we got a 7-Vietnamese sheath on the left femoral vein using a micropuncture and 1% lidocaine. This was followed by insertion of the [place] which was floated to wedge. This was followed by O2 saturations samples and pressure recordings. After the RHC the patient had an acute exacerbation of cough tinged sputum, which transition to copious amount which appeared to be due to pulmonary artery trauma. Patient remain alert, oriented and hemodynamically stable. However given the acuity of the presentation we emergently intubated her for air way protection, the intubation was done selectively into the right lung, to protect the good lung, she maintained good O2 sats. IV fluids, constant suction and emergent blood transfusion were given for hypovolemic shock. She was started on low dose vasopressors for hemodynamic support. Simultaneously then right groin venous access 9Fr sheath was placed in the right femoral vein followed by insertion and inflation of an over the wire balloon in the left pulmonary artery to tamponade the blood supply. Then we selectively engaged the lower branch of the left pulmonary artery with a microcatheter to identify the bleeding. We were able to identify bleeding of a small branch in the left pulmonary artery. After identification of the bleeding site we deployment 6 Tornado coils into th lower left coronary artery followed with Gel Foam. This part of the procedure was done with the assistance of Dr. Jennings from . We successfully were able to stop the bleeding. The patient stable. She will be admitted to CVICU and consulted to the sheet rock sander and CT surgery. RESULTS Hemodynamics. The left ventricular pressure was 204/8 with an LVEDP of 13mmHg. The aortic pressure was 87/44 with mean of 59. The wedge pressure was 14mmHg. The main pulmonary artery pressure had a mean of 28mmHg. The right ventricular pressure was 35/5 with a mean of 17mmHg. The right atrial pressure was 9/9 with a mean of 6mmHg. The aortic pressure was 87/44 with a mean of 59mmHg. The simultaneous aortic mean gradient was 45mmHg. The calculated cardiac output was 3.7. The calculated aortic valve area by Hakki equation was 0.55 cm2. Measurements consistent with severe Aortic Stenosis. ANGIOGRAPHIC RESULTS 1. The right coronary artery is a dominant artery giving of the PDA and several PLB branches which are all patent with MARIZA III flow and nonobstructive CAD. The RCA is mildly calcified with nonobstructive coronary artery disease. 2. Left main is calcified, however with nonobstructive coronary artery disease, is giving the LAD and the left circumflex artery. 3. The LAD is a transapical vessel. It has minimal luminal irregularities throughout, calcified. It has a proximal 10% lesion and a mid also 10% lesion. The diagonal is patent with MARIZA III flow and nonobstructive coronary artery disease. 4. The left circumflex artery is also patent. It has minimal irregularities and calcified, however, no significant obstructive. The OM vessel is patent. CONCLUSION 1. Severe aortic stenosis. 2. Preserved LV systolic function 3. Nonobstructive coronary artery disease. 4. Successful embolization of left pulmonary artery in the setting of pulmonary artery trauma RECOMMENDATIONS The patient will be admitted to the CVICU for post cath care. I will continue supportive management. Civil Engineering Professor consult. The case has been discussed with the patient and family who understand the acuity of the case and the prognosis. Brad Page MD, MPH, [facility] MAGGI/JAROD /4:33 PM /6:53 PM YO
[2017-06-03] MEDS: NOREPINEPHRINE-DEXTROSE DRIP 250 ML IV PRN (19:30)
[2017-06-03 20:00] VITALS: BP_SYST 166; BP_SYST 169; BP_DIAS 95; BP_DIAS 96; PULSE 69; PULSE 70; RESP 18; O2SAT 88
[2017-06-03] MEDS: MIDAZOLAM 100 MG/100 ML INJ 100 ML IV PRN (20:00)
--- NOTE | 2017-06-03 20:05 | PD.PROCEDR ---
Procedure Note Procedure Right pigtail chest tube placement Indication pneumothorax Procedure Emergency procedure, unable to obtain consent. Patient was placed in optimal position. Full barrier and sterile precautions were used, skin and subcutaneous tissue at the marked site was infiltrated with 1% lidocaine, in the third intercostal space, midclavicular line. A small skin carlos was made with scalpel. Introducer needle was placed into the pleural space and chinchilla of air was obtained. The guidewire was inserted through the needle and the needle was removed. Track was dilated and a 8 Irish pigtail catheter was introduced into the pleural space using Seldinger technique. Wire was removed and pigtail catheter was attached to the pleural vac and placed on -20 wall suction. Chest x -ray postprocedure pending at this time. Patient tolerated procedure well Tanika Esquivel MD Jun 03, 2017 20:05
--- NOTE | 2017-06-03 20:08 | HHI.CCPN ---
Subjective Remarks/Hospital Course Right 20 F chest tube placement Indication pneumothorax Procedure: Emergency procedure. Patient was placed in optimal position. Right lateral chest was prepped. The area of the fourth intercostal interspace was infiltrated with 1% lidocaine plain. A 2 centimeter incision was made with a scalpel at the fourth intercostal space. Blunt dissection to the fourth intercostal interspace performed and the pleura was punctured with immediate chinchilla of air. Finger was inserted in the space and thoracostomy tube was placed , directed posteriorly and superiorly. Tube draining well. The thoracostomy tube was secured with suture. 2+ air leak. Sterile seal dressing placed. Patient tolerated procedure well. Objective Vital Signs Date Time Temp Pulse Resp B/P (MAP) Pulse Ox O2 Delivery O2 Flow Rate FiO2 06/03/17 18:39 69 112/64 06/03/17 12:03 98.1 18 96 Intake and Output 06/03/17 06/03/17 06/04/17 08:00 16:00 00:00 Output Total 825 ml Balance -825 ml Result Diagram: 06/03/17 18106/03/17 181 Other Results Laboratory Tests Test 06/03/17 14:50 06/03/17 15:25 06/03/17 17:40 Blood Gas Puncture Site CL CL ART LINE Blood Gas Patient Temperature 98.6 98.6 98.6 Blood Gas HCO3 22 mmol/L (22-26) 19 mmol/L (22-26) 19 mmol/L (22-26) Blood Gas Base Excess -5.3 mmol/L (-2-2) -9.2 mmol/L (-2-2) -6.2 mmol/L (-2-2) Blood Gas Oxygen Saturation 98 % (90-100) 94 % (90-100) 91 % (90-100) Arterial Blood pH 7.17 (7.380-7.420) 7.08 (7.380-7.420) 7.28 (7.380-7.420) Arterial Blood Partial Pressure CO2 64 mmHg (38-42) 68 mmHg (38-42) 43 mmHg (38-42) Arterial Blood Partial Pressure O2 328 mmHg (61-120) 100 mmHg (61-120) 69 mmHg (61-120) Arterial Blood Oxygen Content 10.0 Vol % (12.0-20.0) 14.3 Vol % (12.0-20.0) 16.8 Vol % (12.0-20.0) Arterial Blood Carboxyhemoglobin 0.7 % (0-4) 0.8 % (0-4) 1.4 % (0-4) Arterial Blood Methemoglobin 0.7 % (0-2) 0.9 % (0-2) 1.2 % (0-2) Blood Gas Hemoglobin 6.6 G/DL (12.0-16.0) 10.7 G/DL (12.0-16.0) 13.1 G/DL (12.0-16.0) Oxygen Delivery Device MASK MASK VENTILATOR Blood Gas Inspired Oxygen 100 % 100 % 90 % Blood Gas Ventilator Setting Objective Remarks GENERAL: Intubated unresponsive, neuromuscularly paralyzed anesthesia SKIN: Skin /dry. ENT: Orotracheally intubated. Massive of hemoptysis from ETT NECK: Trachea midline. CARDIOVASCULAR: Regular rate and rhythm. Profound shock on 3 pressors RESPIRATORY: Bilateral coarse rhonchi and crackles. Diminished air entry in the left lung due to GASTROINTESTINAL: Abdomen distended MUSCULOSKELETAL: Bilateral groin Cordis and sheath NEUROLOGICAL: Patient is intubated, reason neuromuscular paralysis limits exam A/P Assessment and Plan NEURO: Keep on Versed and fentanyl for sedation and vent synchrony Neuromuscular paralysis as needed RESP: Massive hemoptysis Left pulmonary artery rupture Acute hypoxemic respiratory failure Small R apical pneumothorax - PC/AC mechanical ventilation PEEP of 12, wean as tolerated. - Small apical pneumothorax may need chest tube, discussed with Dr. Frost - s/p Bronchoscopy with removal of old blood predominantly from L lung CV/Heme: Profound hemorrhagic shock Anemia requiring transfusion - Initially was on Levophed dopamine and Shantanu-Synephrine - Currently only on Shantanu-Synephrine. Titrate to keep map above 65 - Shantanu-Synephrine may also help with pulmonary vasoconstriction, which may help control the bleed - Trend lactic acid - Received 6 units of emergency release blood, 2 units of FFP and one of platelets - Multiple crystalloid boluses given - PARVIN normal LV contractility, volume depletion GI: - Nothing by mouth, OGT tube, IV Protonix : - Monitor renal function closely. Payne catheter. Urine output adequate ID: - Margaret Cath antibiotics per Dr. Corrales ENDO: - Replace electrolytes per protocol PROPH: - Bilateral lower extremity SCDs. IV Protonix. Chemical DVT prophylaxis contraindicated LINES: - Bilateral cordis in place CC time 135 min excluding procedure Tanika Esquivel MD Jun 03, 2017 20:08
--- NOTE | 2017-06-03 20:28 | RADRPT ---
EXAM DATE/TIME: 06/03/2017 19:50 [facility] COMPARISON: CHEST SINGLE AP, June 03, 2017, 17:58. INDICATIONS : Post chest tube palcement. MEDICAL HISTORY : Unobtainable. SURGICAL HISTORY : Pacemaker. ENCOUNTER: Subsequent ACUITY: 1 day PAIN SCORE: Non-responsive. LOCATION: Bilateral chest FINDINGS: Chest tube is present on the right side. The previously seen pneumothorax is no longer seen, however extensive subcutaneous emphysema has developed on the right side. The rest of the examination has not significantly changed. CONCLUSION: Placement of chest tube and resolution of right pneumothorax, extensive subcutaneous emphysema has de veloped on the right and otherwise not changed. Savana Valdovinos MD on June 03, 2017 at 20:26 Board Certified Radiologist. This report was verified electronically.
[2017-06-03] MEDS: NS 1000P @30 MLS/HR (KVO) IV SCH (21:00)
[2017-06-03] MEDS ORDERED: SODIUM BICARBONATE 8.4% INJ 50 MEQ/50 ML SYR ONE (21:15)
[2017-06-03] MEDS: RESP: ALBUTEROL 2.5 MG/IPRATROPIUM 0.5 MG NEB (SCH) NEB (21:43)
[2017-06-03] MEDS: EPOPROSTENOL NEB SOLUTION 50 NG/KG/MIN 100 ML NEB SCH ×2 (22:15)
[2017-06-03 22:48] LABS: MAGNESIUM 1.3 MG/DL (1.5-2.5)
[2017-06-03] MEDS: POTASSIUM CHLOR 40 MEQ PREMIX 100 ML IV SCH (23:00)
[2017-06-03] MEDS ORDERED: DOPamine 800 MG/D5W PREMIX 500 ML IV SCH (23:00)
[2017-06-03] MEDS: CHLORHEXIDINE 0.12% (ORAL KIT) 15 ML CUP MT SCH (23:00)
[2017-06-03] MEDS: PANTOPRAZOLE SODIUM 40 MG VIAL IV PUSH SCH (23:00)
[2017-06-03] MEDS ORDERED: VASOPRESSIN 40 U/D5W 100 ML Titrate, Post Cardiac Surgery IV PRN ×2 (23:15)
[2017-06-04] VITALS (14 sets, daily range): BP systolic 121–192; BP diastolic 61–96; PULSE 66–112; RESP 18–20; TEMP 97.5–99.2; O2SAT 82–97
[2017-06-04] MEDS: RESP: ALBUTEROL 2.5 MG/IPRATROPIUM 0.5 MG NEB (SCH) NEB ×6 (00:12→20:23)
[2017-06-04 00:31] LABS: LACTIC ACID GHOST NOT REPORTABLE
[2017-06-04] MEDS: NOREPINEPHRINE-DEXTROSE DRIP 250 ML IV PRN ×3 (00:43→09:58)
[2017-06-04] MEDS: MAGNESIUM SULFATE INJ 2 GM in SODIUM CHLORIDE 0.9% INJ 96 ML IV PRN ×2 (01:00→16:45)
[2017-06-04] MEDS: POTASSIUM CHLOR 40 MEQ PREMIX 100 ML IV SCH ×3 (01:20→20:30)
[2017-06-04 02:31] LABS: BLOOD GAS BASE EXCESS -5.4 mmol/L (-2-2); BLOOD GAS CARBOXYHEMOGLOBIN 1.2 % (0-4); BLOOD GAS HCO3 19 mmol/L (22-26); BLOOD GAS METHEMOGLOBIN 1.2 % (0-2); BLOOD GAS O2 HGB SATURATION 83 % (90-100); BLOOD GAS PCO2 35 mmHg (38-42); BLOOD GAS PO2 52 mmHg (61-120); BLOOD GAS TOTAL HGB 14.6 G/DL (12.0-16.0); TEMP CORR TO 98.6
[2017-06-04 02:32] LABS: CRITICAL VALUE YES; DRAW SITE ART LINE; FIO2 100 %; OXYGEN DEVICE VENTILATOR; STAT NO; VENT SETTINGS PC/AC
[2017-06-04] MEDS: PIPERACIL-TAZO 3.375 GM PREMIX 50 ML IV SCH ×4 (02:37→18:53)
[2017-06-04 04:32] LABS: HEMATOCRIT 42.7 % (35.0-46.0); MEAN CELL VOLUME 83.1 FL (80.0-100.0); MEAN CORPUSCULAR HEMOGLOBIN 28.5 PG (27.0-34.0); MEAN CORPUSCULAR HGB CONC 34.3 % (32.0-36.0); PLATELET COUNT 151 TH/MM3 (150-450); RED BLOOD COUNT 5.14 MIL/MM3 (4.00-5.30); RED CELL DISTRIBUTION WIDTH 15.8 % (11.6-17.2); WHITE BLOOD COUNT 35.1 TH/MM3 (4.0-11.0)
[2017-06-04 04:34] LABS: HEMO FLAGS AUTO DIFF
[2017-06-04 04:45] LABS: APTT (PATIENT) 27.5 SEC (24.3-30.1); INTERNATIONAL NORMALIZED RATIO 1.5 RATIO; PROTHROMBIN TIME - PATIENT 16.4 SEC (9.8-11.6)
[2017-06-04] MEDS: NS 1000P @30 MLS/HR (KVO) IV SCH (05:00)
[2017-06-04 05:07] LABS: ALKALINE PHOSPHATASE 74 U/L (45-117); ALT (GPT) 109 U/L (10-53); ANION GAP 11 MEQ/L (5-15); AST (GOT) 137 U/L (15-37); BICARBONATE 20.5 MEQ/L (21.0-32.0); BLOOD UREA NITROGEN 20 MG/DL (7-18); CHLORIDE 112 MEQ/L (98-107); GLOMERULAR FILTRATION RATE 54 ML/MIN (>89); MAGNESIUM 1.9 MG/DL (1.5-2.5); POTASSIUM 4.1 MEQ/L (3.5-5.1); SODIUM (NA) 143 MEQ/L (136-145); TOTAL BILIRUBIN ADULT 2.1 MG/DL (0.2-1.0)
--- NOTE | 2017-06-04 05:23 | RADRPT ---
EXAM DATE/TIME: 06/04/2017 04:37 [facility] COMPARISON: CHEST SINGLE AP, June 03, 2017, 19:50. INDICATIONS : Short of breath. MEDICAL HISTORY : None. SURGICAL HISTORY : Pacemaker. ENCOUNTER: Subsequent ACUITY: 1 week PAIN SCORE: 0/10 LOCATION: Bilateral chest FINDINGS: The cardiac silhouette is normal in transverse diameter. Support lines and tubes are in satisfactory position. There is patchy alveolar disease bilaterally compatible with edema or pneumonia. A right ch est tube is in place. There is no evidence of pneumothorax. There is subcutaneous emphysema along the right lateral chest wall. CONCLUSION: 1. Patchy alveolar disease characteristic of edema or pneumonia. 2. There is no evidence of pneumothorax. Shawn Perez MD on June 04, 2017 at 5:21 Board Certified Radiologist. This report was verified electronically.
[2017-06-04 05:38] LABS: METAMYELOCYTES 1 % (0-1); POLYS (SEG NEUTROPHILS) 93 % (16-70); WBC DIFF SAMPLE 100
[2017-06-04 05:41] LABS: PLATELET ESTIMATE SMEAR NORMAL (NORMAL); PLATELET MORPHOLOGY NORMAL (NORMAL); SCAN/DIFF FINAL DIFF MANUAL
[2017-06-04 07:01] LABS: BLOOD GAS BASE EXCESS -7.9 mmol/L (-2-2); BLOOD GAS CARBOXYHEMOGLOBIN 1.2 % (0-4); BLOOD GAS HCO3 16 mmol/L (22-26); BLOOD GAS METHEMOGLOBIN 1.2 % (0-2); BLOOD GAS O2 HGB SATURATION 93 % (90-100); BLOOD GAS PCO2 29 mmHg (38-42); BLOOD GAS PO2 75 mmHg (61-120); BLOOD GAS TOTAL HGB 15.3 G/DL (12.0-16.0); CRITICAL VALUE YES; DRAW SITE ART LINE; FIO2 100 %; OXYGEN DEVICE VENTILATOR; STAT NO; TEMP CORR TO 98.6; VENT SETTINGS PC/AC
[2017-06-04 07:21] LABS: BLOOD GAS BASE EXCESS -7.5 mmol/L (-2-2); BLOOD GAS CARBOXYHEMOGLOBIN 1.4 % (0-4); BLOOD GAS HCO3 17 mmol/L (22-26); BLOOD GAS METHEMOGLOBIN 1.2 % (0-2); BLOOD GAS PCO2 34 mmHg (38-42); BLOOD GAS PO2 62 mmHg (61-120)
[2017-06-04 07:22] LABS: BLOOD GAS O2 HGB SATURATION 88 % (90-100); BLOOD GAS OXYGEN CONTENT 17.3 Vol % (12.0-20.0); BLOOD GAS TOTAL HGB 13.9 G/DL (12.0-16.0)
[2017-06-04 07:23] LABS: CRITICAL VALUE YES; FIO2 100 %; STAT YES; TEMP CORR TO 98.6
[2017-06-04] MEDS ORDERED: SODIUM BICARBONATE 8.4% INJ 50 MEQ/50 ML SYR IV PUSH ONE (07:45)
[2017-06-04] MEDS ORDERED: FUROSEMIDE 20 MG/2 ML VIAL IV PUSH ONE ×2 (07:45→08:30)
[2017-06-04] MEDS ORDERED: VANCOMYCIN INJ 1,000 MG in SODIUM CHLOR 0.9% 250 ML INJ 250 ML IV ONE (07:45)
[2017-06-04] MEDS: PANTOPRAZOLE SODIUM 40 MG VIAL IV PUSH SCH ×2 (08:32→20:00)
--- NOTE | 2017-06-04 08:34 | RADRPT ---
EXAM DATE/TIME: 06/03/2017 00:00 [facility] COMPARISON: No previous studies available for comparison. INDICATIONS : Patient with perforated pulmonary artery in need of embolization. MEDICAL HISTORY : 1.Hypothyroid 2.CAD 3.MV disease 4.AFIB 5.CHF 6.HTN 7.Colon cancer SURGICAL HISTORY : 1.Tonsillectomy 2.Pacemaker 3.Colon resection. ENCOUNTER: Initial ACUITY: 1 day PAIN SCORE: Nonresponsive. IMAGE SERIES: DEVICE(S): 1.) Left pulmonary artery embolic coil(s) 7/3 tornado x2 2.) Left pulmonary artery embolic coil(s) 8/5 tornado x2 3.) Left pulmonary artery embolic coil(s) 10/5 tornado x2 4.) Left pulmonary artery Gelfoam 12-7mm TECH NOTE: Emergent, Procedure done in Cardiac Cath LabDON RUCKER MR#:[id number] :[birth year] Exam Dt/Desc : June 03, 2017TRANSCATH IV OCCLUSSION PROCEDURE : 1. Ultrasound-guided puncture of the access site. 2. Conscious sedation with continuous EKG and Oximetry monitoring. 3. Angiography of the lower lobe branch vessel of the left pulmonary artery 4. coil and Gelfoam embolization of the left lower lobe pulmonary artery branch vessels. Was called emergently to the cardiac catheterization lab by Dr. Tanika Esquivel with report of a possible pulmonary artery rupture. When arrived, elderly patient was intubated and Dr. Corrales from cardiology was accessing the right heart from a right groin sheath. Due to the urgency of the situation, I was init ially unaware of the clinical situation it would be possible rupture. I assisted Dr. Corrales in manipulat ing one of the cardiac catheter back into the left pulmonary artery. Only change runs were available on the cardiac unit with no subtraction capabilities. Initial injection failed to demonstrate an acti ve area of hemorrhage. Therefore, the sheath in the right groin was exchanged for a 12 Sinhala to accommodate the [employer] com pliant balloon catheter. The balloon catheter was advanced over the wire and positioned in the lower lobe branch of the left pulmonary artery. The balloon was insufflated likely with a hand injection. W piotr was removed and contrast injected through the balloon catheter demonstrating a large hemorrhage f rom one of the lower lobe branch vessels. In fact, the initial injection to showed a contrast stained with no actual vascular structure identified. Over a wire, the balloon catheter was exchanged for a 100 cm Berenstein glide catheter. Contrast injection through the Berenstein again demonstrated the la rge bleed. Due to the emergent situation, subselection was not attempted. Embolization was performed with a series of 7-10 mm Tornado coils followed by Gelfoam slurry to cessation of antegrade flow in t he lower lobe branch vessels and effective hemostasis of the previously identified hemorrhage. CONCLUSION: Left pulmonary artery rupture with successful coil embolization of a lower lobe branc h vessel as above. Joselo Jennings MD on June 04, 2017 at 8:20 Board Certified Radiologist. This report was verified electronically.
[2017-06-04] MEDS: EPOPROSTENOL NEB SOLUTION 50 NG/KG/MIN 100 ML NEB SCH ×2 (09:04)
[2017-06-04] MEDS ORDERED: ALBUMIN 25% INJ 100 ML IV ONE (09:45)
--- NOTE | 2017-06-04 09:54 | HHI.CCPN ---
Subjective Remarks/Hospital Course I was emergently called to slab lifting supervisor by Dr. Corrales. Ms. Mahoney who is 89 yo female with history of severe aortic stenosis was undergoing left and right heart catheter for TAVR evaluation. With right heart catheterization patient developed acute massive hemoptysis with shock secondary to acute rupture of pulmonary artery. Patient was intubated by Dr. Potter and ETT was advance to Right lung for selective right lung ventilation due to massive hemorrhage from Left lung. On my arrival to slab lifting supervisor, patient was rapidly dropping blood pressure. Dopamine was already started. I ordered Shantanu-Synephrine, at 300 mcg/ m in an attempt to increase MAP and also increase the pulmonary vasoconstriction. Levophed was also added to maintain blood pressure and rapidly titrated up. Emergency release blood initially 3 units was ordered stat along with 2 units of FFP, 1 unit of platelet. I also emergently contacted Dr. Vásquez was in the office. (Dr. Bedoya the on-call CT surgeon was operating). While on Levophed Shantanu-Synephrine and dopamine, patient developed coarse V. fib/V. tach, received brief CPR, and was DC cardioverted 1 with return of spontaneous circulation and sinus rhythm. I discussed with Dr. Corrales and anesthesiologist, I also contacted Dr. Josue from invasive radiology.Dr. Josue immediately arrived to the slab lifting supervisor. Dr. Abdelrahman francis performed PARVIN which showed vigorous LV contraction but cavity was empty. Received Continuous massive fluid resuscitation with multiple crystalloid boluses, bicarbonate and calcium. Blood arrived and initially 3 units of PRBC, 2 units of 1 unit of platelets was given with calcium total 3 g given after blood transfusion. Because of persistent hypotension, additional 2 units of PRBC was given. While I resuscitated the patient, Dr. Corrales and Dr. Jennings performed right heart cath, identified bleeding of a small branch in the left pulmonary artery. They put put in 6 coils in the lower left lower pulmonary artery followed with Gelfoam closing the perforation. 06/04: Emergency chest 2 yesterday for right pneumothorax with hypotension and hypoxia. Remains intubated sedated and on Levophed. FiO2 remains at 100%, Sat improving to 94-95 %. UO adequate overnight. 2-D echo on my review normal LV and RV function, no PFO on bubble study Objective Vital Signs Date Time Temp Pulse Resp B/P (MAP) Pulse Ox O2 Delivery O2 Flow Rate FiO2 06/04/17 08:53 94 100 06/04/17 05:39 68 120/73 06/04/17 04:00 Mechanical Ventilator 06/04/17 04:00 97.5 20 Intake and Output 06/04/17 06/04/17 06/05/17 08:00 16:00 00:00 Intake Total 1400 ml Output Total 1197 ml Balance 203 ml Result Diagram: 06/04/17 0415 06/04/17 0415 Other Results Laboratory Tests Test 06/03/17 14:50 06/03/17 15:25 06/03/17 17:40 06/03/17 20:10 Blood Gas Puncture Site CL CL ART LINE Blood Gas Patient Temperature 98.6 98.6 98.6 98.6 Blood Gas HCO3 22 mmol/L (22-26) 19 mmol/L (22-26) 19 mmol/L (22-26) 17 mmol/L (22-26) Blood Gas Base Excess -5.3 mmol/L (-2-2) -9.2 mmol/L (-2-2) -6.2 mmol/L (-2-2) -7.5 mmol/L (-2-2) Blood Gas Oxygen Saturation 98 % (90-100) 94 % (90-100) 91 % (90-100) 88 % ( 90-100) Arterial Blood pH 7.17 (7.380-7.420) 7.08 (7.380-7.420) 7.28 (7.380-7.420) 7.32 (7.380-7.420) Arterial Blood Partial Pressure CO2 64 mmHg (38-42) 68 mmHg (38-42) 43 mmHg (38-42) 34 mmHg (38-42) Arterial Blood Partial Pressure O2 328 mmHg (61-120) 100 mmHg (61-120) 69 mmHg (61-120) 62 mmHg (61-120) Arterial Blood Oxygen Content 10.0 Vol % (12.0-20.0) 14.3 Vol % (12.0-20.0) 16.8 Vol % (12.0-20.0) 17.3 Vol % (12.0-20.0) Arterial Blood Carboxyhemoglobin 0.7 % (0-4) 0.8 % (0-4) 1.4 % (0-4) 1.4 % (0-4) Arterial Blood Methemoglobin 0.7 % (0-2) 0.9 % (0-2) 1.2 % (0-2) 1.2 % (0-2) Blood Gas Hemoglobin 6.6 G/DL (12.0-16.0) 10.7 G/DL (12.0-16.0) 13.1 G/DL (12.0-16.0) 13.9 G/DL (12.0-16.0) Oxygen Delivery Device MASK MASK VENTILATOR Blood Gas Inspired Oxygen 100 % 100 % 90 % 100 % Blood Gas Ventilator Setting Test 06/04/17 02:20 06/04/17 06:50 Blood Gas Puncture Site ART LINE ART LINE Blood Gas Patient Temperature 98.6 98.6 Blood Gas HCO3 19 mmol/L (22-26) 16 mmol/L (22-26) Blood Gas Base Excess -5.4 mmol/L (-2-2) -7.9 mmol/L (-2-2) Blood Gas Oxygen Saturation 83 % (90-100) 93 % (90-100) Arterial Blood pH 7.35 (7.380-7.420) 7.38 (7.380-7.420) Arterial Blood Partial Pressure CO2 35 mmHg (38-42) 29 mmHg (38-42) Arterial Blood Partial Pressure O2 52 mmHg (61-120) 75 mmHg (61-120) Arterial Blood Oxygen Content 17.0 Vol % (12.0-20.0) 20.0 Vol % (12.0-20.0) Arterial Blood Carboxyhemoglobin 1.2 % (0-4) 1.2 % (0-4) Arterial Blood Methemoglobin 1.2 % (0-2) 1.2 % (0-2) Blood Gas Hemoglobin 14.6 G/DL (12.0-16.0) 15.3 G/DL (12.0-16.0) Oxygen Delivery Device VENTILATOR VENTILATOR Blood Gas Ventilator Setting PC/AC PC/AC Blood Gas Inspired Oxygen 100 % 100 % Objective Remarks GENERAL: Intubated sedated with Versed. Opens eyes SKIN: Skin /dry. ENT: Orotracheally intubated. Intermittently bloody secretions from ETT NECK: Trachea midline. CARDIOVASCULAR: Regular rate and rhythm. Remains in shock on levophed and renal dose of dopamine RESPIRATORY: Bilateral coarse rhonchi and crackles. Diminished air entry in the left lung due to GASTROINTESTINAL: Abdomen distended MUSCULOSKELETAL: Left venous and arterial sheath in the groin NEUROLOGICAL: Patient is intubated, sedated with Versed. Opens eyes follows commands on lower extremity A/P Assessment and Plan NEURO: Keep on Versed and fentanyl for sedation and vent synchrony Neuromuscular paralysis as needed Sedation vacation orally once FiO2 requirement has improved RESP: Massive hemoptysis Left peripheral pulmonary artery rupture with massive hemorrhage Acute hypoxemic respiratory failure Small R apical pneumothorax - s/p coil and gelfoam closure of Left lower pulmonary artery (peripheral small branch) by Rhoda Corrales and Michaela - PC/AC mechanical ventilation PEEP of 8, - s/p chest tube x2 for right pneumothorax on 06/03. Today No pneumothorax - s/p Bronchoscopy with removal of blood predominantly from L lung - DuoNeb q 6hours and PRN - Continue Flolan CV/Heme: Profound hemorrhagic shock Anemia requiring transfusion Severe - Initially was on Levophed dopamine and Dopamine (renal dose) - Titrate to keep map above 65 - Trend lactic acid - Received 6 units of emergency release blood, 2 units of FFP and one of platelets - Multiple crystalloid boluses were given - PARVIN normal LV contractility, volume depletion - 2D Echo today RV LV function look normal, no PFO GI: - Nothing by mouth, OGT tube, IV Protonix : - Monitor renal function closely. Payne catheter. Urine output adequate ID: - Empiric Zosyn and single dose of vancomycin ENDO: - Replace electrolytes per protocol PROPH: - Bilateral lower extremity SCDs. IV Protonix. Chemical DVT prophylaxis contraindicated LINES: - Left femoral cordis and central line in place CC time 80 min excluding procedure Tanika Esquivel MD Jun 04, 2017 09:54
--- NOTE | 2017-06-04 09:57 | PD.PROCEDR ---
Procedure Note Procedure Right 20 F chest tube placement Indication pneumothorax Procedure: Emergency procedure. Patient was placed in optimal position. Right lateral chest was prepped. The area of the fourth intercostal interspace was infiltrated with 1% lidocaine plain. A 2 centimeter incision was made with a scalpel at the fourth intercostal space. Blunt dissection to the fourth intercostal interspace performed and the pleura was punctured with immediate chinchilla of air. Finger was inserted in the space and thoracostomy tube was placed , directed posteriorly and superiorly. Tube draining well. The thoracostomy tube was secured with suture. 2+ air leak. Sterile seal dressing placed. Patient tolerated procedure well. Tanika Esquivel MD Jun 04, 2017 09:57
[2017-06-04] MEDS: SODIUM BICARBONATE 8.4% INJ 150 MEQ in WATER STERILE FOR INJ 850 ML IV SCH (11:04)
[2017-06-04] MEDS ORDERED: DEXTROSE 50% IN WATER 50 ML VIAL(D50) IV PUSH PRN (12:15)
[2017-06-04] MEDS ORDERED: GLUCAGON 1 MG/ML VIAL OTHER PRN (12:15)
--- NOTE | 2017-06-04 12:21 | PD.PROCEDR ---
Central Line Procedure REASON FOR PROCEDURE Central venous access PROCEDURE PERFORMED Central line placement: LIJ central line CONSENT Informed consent for procedure was obtained and time out performed. The risks and benefits of the procedure were discussed to include but limited to bleeding , clot formation, infection, and even . ANESTHESIA Local injection of 1% Lidocaine DESCRIPTION OF THE PROCEDURE The patient was placed in supine, mild Trendelenburg position. The area was exposed and cleansed with ChloraPrep, times two. Large sterile drape was used to cover the patient, with the site exposed, under sterile conditions including cap, face mask, sterile gown, and sterile gloves. On single attempt, the introducer needle was inserted with negative pressure in syringe and venous flash was obtained. The guide wire was then advanced without any restriction and the needle was removed. The dilator was used without any complications. Using Seldinger technique the 20 CM 7F triple lumen catheter was advanced over the guide wire to a depth of 18centimeters. The guide wire was removed. All ports were aspirated with dark venous blood return and flushed easily with sterile saline. All ports were capped. Antibiotic disc was placed around central line at puncture site. The central line was secured to the skin with two interrupted 2.0 silk sutures. The area was bandaged with sterile see- through central line bandage. RADIOLOGICAL DATA Ultrasound guidance was used to locate LIJ COMPLICATIONS: No apparent complications ESTIMATED BLOOD LOSS: Less than 1 cc. Tanika Esquivel MD Jun 04, 2017 12:21
--- NOTE | 2017-06-04 12:38 | PD.CARD.PN ---
Subjective Subjective Remarks overnight events noted Sedated, Intubated Opening eyes and moving extremities Objective Medications Current Medications Medications (Trade) Dose Ordered Sig/Padmini Route Start Time Stop Time Status Last Admin (Benadryl) 50 mg PULLMAN CONDUCTOR PO 06/03/17 12:00 06/06/17 11:59 Sodium Chloride 1,000 ml @ 30 mls/hr Q24H IV 06/03/17 12:00 06/04/17 05:00 (Peridex 0.12% Liq) 15 ml BID@08,20 MT 06/03/17 20:00 06/03/17 23:00 Midazolam HCl 100 ml @ 2 mls/hr TITRATE PRN IV 06/03/17 17:00 06/03/17 20:00 Phenylephrine HCl 40 mg/Dextrose 500 ml @ 30 mls/hr TITRATE PRN IV 06/03/17 18:15 06/03/17 19:00 (Brethine Inj) 1 mg UNSCH PRN SQ 06/03/17 18:15 Norepinephrine Bitartrate 250 ml @ 7.5 mls/hr TITRATE PRN IV 06/03/17 18:15 06/04/17 09:58 (Brethine Inj) 1 mg UNSCH PRN SQ 06/03/17 18:15 (Duoneb Neb) 1 ampule Q4HR NEB NEB 06/03/17 20:00 06/04/17 08:53 (Duoneb Neb) 1 ampule Q2HR NEB PRN NEB 06/03/17 19:00 (Protonix Inj) 40 mg Q12H IV PUSH 06/03/17 20:00 06/04/17 08:32 Potassium Chloride 100 ml @ 50 mls/hr Q2H PRN IV 06/03/17 19:15 Potassium Chloride 100 ml @ 50 mls/hr Q2H PRN IV 06/03/17 19:15 (K-Lyte Cl Eff) 50 meq UNSCH PRN PO 06/03/17 19:15 Potassium Chloride 100 ml @ 25 mls/hr UNSCH PRN IV 06/03/17 19:15 Potassium Chloride 100 ml @ 50 mls/hr Q2H PRN IV 06/03/17 19:15 Magnesium Sulfate 4 gm/Sodium Chloride 100 ml @ 50 mls/hr UNSCH PRN IV 06/03/17 19:15 (Mag-Ox) 800 mg UNSCH PRN PO 06/03/17 19:15 Magnesium Sulfate 2 gm/Sodium Chloride 100 ml @ 50 mls/hr UNSCH PRN IV 06/03/17 19:15 06/04/17 01:00 (K-Phos) 2,000 mg Q4H PRN PO 06/03/17 19:15 Sodium Phosphate 30 mmol/Sodium Chloride 250 ml @ 42 mls/hr UNSCH PRN IV 06/03/17 19:15 (K-Phos) 2,000 mg UNSCH PRN PO/TUBE 06/03/17 19:15 Potassium Phosphate 30 mmol/ Sodium Chloride 260 ml @ 42 mls/hr UNSCH PRN IV 06/03/17 19:15 Epoprostenol Sodium 62.5 ml/ Sodium Chloride 100 ml @ 8 mls/hr Q8H NEB 06/03/17 21:00 06/04/17 09:04 Dopamine HCl/ Dextrose 500 ml @ 3.9 mls/hr CONTINUOUS WT BASED IV 06/03/17 23:00 06/04/17 05:39 (Brethine Inj) 1 mg UNSCH PRN SQ 06/03/17 23:15 Vasopressin 40 units/Dextrose 100 ml @ 1.5 mls/hr TITRATE PRN IV 06/03/17 23:15 Piperacillin Sod/ Tazobactam Sod 50 ml @ 100 mls/hr Q6H IV 06/04/17 01:00 06/04/17 07:00 Sodium Bicarbonate 150 meq/Sterile Water 1,000 ml @ 75 mls/hr [id number] IV 06/04/17 09:00 06/04/17 11:04 (NovoLOG SUPPLEMENTAL SCALE) 1 Q4HR SQ 06/04/17 12:00 (D50w (Vial) Inj) 50 ml UNSCH PRN IV PUSH 06/04/17 12:15 (Glucagon Inj) 1 mg UNSCH PRN OTHER 06/04/17 12:15 Sodium Chloride 1,000 ml @ 999 mls/hr Q1H1M IV 06/04/17 13:00 06/04/17 14:00 Vital Signs / I&O Vital Signs Date Time Temp Pulse Resp B/P (MAP) Pulse Ox O2 Delivery O2 Flow Rate FiO2 06/04/17 11:00 97 Mechanical Ventilator 100 06/04/17 09:58 91 147/80 06/04/17 08:53 94 100 06/04/17 08:00 100 06/04/17 07:00 90 Mechanical Ventilator 100 06/04/17 07:00 98.4 89 20 145/76 (99) 90 157/80 (105) 06/04/17 05:39 68 120/73 06/04/17 05:11 76 128/67 06/04/17 04:00 88 Mechanical Ventilator 100 06/04/17 04:00 97.5 66 20 121/61 (81) 88 123/78 (93) 06/04/17 04:00 66 06/04/17 04:00 100 06/04/17 03:28 82 100 06/04/17 02:00 100 06/04/17 00:43 83 114/65 06/04/17 00:30 86 100 06/04/17 00:00 86 Mechanical Ventilator 100 06/04/17 00:00 69 18 166/96 (119) 88 169/95 (119) 06/04/17 00:00 68 06/04/17 00:00 100 06/03/17 20:00 70 06/03/17 20:00 69 18 166/96 (119) 88 169/95 (119) 06/03/17 20:00 88 Mechanical Ventilator 100 06/03/17 19:30 70 86/42 06/03/17 19:00 100 06/03/17 19:00 69 88/40 06/03/17 18:39 69 112/64 06/03/17 17:35 88 100 06/03/17 16:40 88 100 06/03/17 15:05 87 100 06/03/17 15:05 87 100 I/O 06/03/17 06/03/17 06/03/17 06/04/17 06/04/17 06/04/17 06:59 14:59 22:59 06:59 14:59 22:59 Intake Total 1400 ml Output Total 825 ml 1197 ml Balance -825 ml 203 ml Intake Oral 0 ml IV Total 1400 ml Output Urine Total 825 ml 575 ml Gastric Drainage Total 550 ml Chest Tube Drainage Total 72 ml # Bowel Movements 1 Physical Exam GENERAL: Sedated, intubated SKIN: Warm and dry. HEAD: Normocephalic. EYES: No scleral icterus. No injection or drainage. NECK: Supple, trachea midline. No JVD or lymphadenopathy. CARDIOVASCULAR: Regular rate and rhythm 2/6SEM no gallops, or rubs. RESPIRATORY: Vented. GASTROINTESTINAL: Abdomen soft, non-tender, nondistended. EXTREMITIES: No cyanosis, or +edema. Laboratory Laboratory Tests Test 06/03/17 14:50 06/03/17 15:25 06/03/17 17:40 06/03/17 18:10 Blood Gas Puncture Site CL CL ART LINE Blood Gas Patient Temperature 98.6 98.6 98.6 Blood Gas HCO3 22 mmol/L 19 mmol/L 19 mmol/L Blood Gas Base Excess -5.3 mmol/L -9.2 mmol/L -6.2 mmol/L Blood Gas Oxygen Saturation 98 % 94 % 91 % Arterial Blood pH 7.17 7.08 7.28 Arterial Blood Partial Pressure CO2 64 mmHg 68 mmHg 43 mmHg Arterial Blood Partial Pressure O2 328 mmHg 100 mmHg 69 mmHg Arterial Blood Oxygen Content 10.0 Vol % 14.3 Vol % 16.8 Vol % Arterial Blood Carboxyhemoglobin 0.7 % 0.8 % 1.4 % Arterial Blood Methemoglobin 0.7 % 0.9 % 1.2 % Blood Gas Hemoglobin 6.6 G/DL 10.7 G/DL 13.1 G/DL Oxygen Delivery Device MASK MASK VENTILATOR Blood Gas Inspired Oxygen 100 % 100 % 90 % Blood Gas Ventilator Setting White Blood Count 34.5 TH/MM3 Red Blood Count 4.69 MIL/MM3 Hemoglobin 13.6 GM/DL Hematocrit 39.9 % Mean Corpuscular Volume 85.1 FL Mean Corpuscular Hemoglobin 29.1 PG Mean Corpuscular Hemoglobin Concent 34.1 % Red Cell Distribution Width 15.4 % Platelet Count 131 TH/MM3 Mean Platelet Volume 7.6 FL Neutrophils (%) (Auto) 89.0 % Lymphocytes (%) (Auto) 5.7 % Monocytes (%) (Auto) 4.9 % Eosinophils (%) (Auto) 0.2 % Basophils (%) (Auto) 0.2 % Neutrophils # (Auto) 30.7 TH/MM3 Lymphocytes # (Auto) 2.0 TH/MM3 Monocytes # (Auto) 1.7 TH/MM3 Eosinophils # (Auto) 0.1 TH/MM3 Basophils # (Auto) 0.1 TH/MM3 CBC Comment AUTO DIFF Differential Total Cells Counted 100 Neutrophils % (Manual) 82 % Band Neutrophils % 6 % Lymphocytes % 6 % Monocytes % 4 % Neutrophils # (Manual) 31.1 TH/MM3 Metamyelocytes 2 % Differential Comment FINAL DIFF MANUAL Platelet Estimate LOW Platelet Morphology Comment NORMAL Ovalocytes 1+ Acanthocytes 1+ Prothrombin Time 15.4 SEC Prothromb Time International Ratio 1.4 RATIO Activated Partial Thromboplast Time 29.4 SEC Fibrinogen 179 mg/dL Blood Urea Nitrogen 16 MG/DL Creatinine 0.73 MG/DL Random Glucose 230 MG/DL Total Protein 5.2 GM/DL Albumin 2.7 GM/DL Calcium Level 8.7 MG/DL Magnesium Level 1.5 MG/DL Alkaline Phosphatase 90 U/L Aspartate Amino Transf (AST/SGOT) 175 U/L Alanine Aminotransferase (ALT/SGPT) 125 U/L Total Bilirubin 1.3 MG/DL Sodium Level 146 MEQ/L Potassium Level 2.8 MEQ/L Chloride Level 113 MEQ/L Carbon Dioxide Level 23.0 MEQ/L Anion Gap 10 MEQ/L Estimat Glomerular Filtration Rate 75 ML/MIN Test 06/03/17 20:10 06/03/17 22:15 06/04/17 02:20 06/04/17 04:15 Blood Gas Puncture Site ART LINE Blood Gas Patient Temperature 98.6 98.6 Blood Gas HCO3 17 mmol/L 19 mmol/L Blood Gas Base Excess -7.5 mmol/L -5.4 mmol/L Blood Gas Oxygen Saturation 88 % 83 % Arterial Blood pH 7.32 7.35 Arterial Blood Partial Pressure CO2 34 mmHg 35 mmHg Arterial Blood Partial Pressure O2 62 mmHg 52 mmHg Arterial Blood Oxygen Content 17.3 Vol % 17.0 Vol % Arterial Blood Carboxyhemoglobin 1.4 % 1.2 % Arterial Blood Methemoglobin 1.2 % 1.2 % Blood Gas Hemoglobin 13.9 G/DL 14.6 G/DL Blood Gas Inspired Oxygen 100 % 100 % Hemoglobin 14.3 GM/DL 14.6 GM/DL Lactic Acid Level 3.1 mmol/L 4.2 mmol/L Phosphorus Level 4.1 MG/DL 3.4 MG/DL Magnesium Level 1.3 MG/DL 1.9 MG/DL Oxygen Delivery Device VENTILATOR Blood Gas Ventilator Setting PC/AC White Blood Count 35.1 TH/MM3 Red Blood Count 5.14 MIL/MM3 Hematocrit 42.7 % Mean Corpuscular Volume 83.1 FL Mean Corpuscular Hemoglobin 28.5 PG Mean Corpuscular Hemoglobin Concent 34.3 % Red Cell Distribution Width 15.8 % Platelet Count 151 TH/MM3 Mean Platelet Volume 8.0 FL CBC Comment AUTO DIFF Differential Total Cells Counted 100 Neutrophils % (Manual) 93 % Lymphocytes % 3 % Monocytes % 3 % Neutrophils # (Manual) 33.0 TH/MM3 Metamyelocytes 1 % Differential Comment FINAL DIFF MANUAL Platelet Estimate NORMAL Platelet Morphology Comment NORMAL Prothrombin Time 16.4 SEC Prothromb Time International Ratio 1.5 RATIO Activated Partial Thromboplast Time 27.5 SEC Nasal Screen MRSA (PCR) MRSA NOT DETECTED Blood Urea Nitrogen 20 MG/DL Creatinine 0.97 MG/DL Random Glucose 267 MG/DL Total Protein 5.0 GM/DL Albumin 2.5 GM/DL Calcium Level 7.9 MG/DL Alkaline Phosphatase 74 U/L Aspartate Amino Transf (AST/SGOT) 137 U/L Alanine Aminotransferase (ALT/SGPT) 109 U/L Total Bilirubin 2.1 MG/DL Sodium Level 143 MEQ/L Potassium Level 4.1 MEQ/L Chloride Level 112 MEQ/L Carbon Dioxide Level 20.5 MEQ/L Anion Gap 11 MEQ/L Estimat Glomerular Filtration Rate 54 ML/MIN Test 06/04/17 06:50 Blood Gas Puncture Site ART LINE Blood Gas Patient Temperature 98.6 Blood Gas HCO3 16 mmol/L Blood Gas Base Excess -7.9 mmol/L Blood Gas Oxygen Saturation 93 % Arterial Blood pH 7.38 Arterial Blood Partial Pressure CO2 29 mmHg Arterial Blood Partial Pressure O2 75 mmHg Arterial Blood Oxygen Content 20.0 Vol % Arterial Blood Carboxyhemoglobin 1.2 % Arterial Blood Methemoglobin 1.2 % Blood Gas Hemoglobin 15.3 G/DL Oxygen Delivery Device VENTILATOR Blood Gas Ventilator Setting PC/AC Blood Gas Inspired Oxygen 100 % Imaging Last 24 hours Impressions Chest X-Ray 06/04/17 0400 Signed Impressions: Service Date/Time: Sunday, June 04, 2017 04:37 - CONCLUSION: 1. Patchy alveolar disease characteristic of edema or pneumonia. 2. There is no evidence of pneumothorax. Shawn Perez MD Assessment and Plan Problem List: (1) Pulmonary arterial thrombosis ICD Codes: I26.99 - Other pulmonary embolism without acute cor pulmonale Status: Acute Plan: 89 y/o F with severe admitted with pulmonary artery perforation s/p left pulmonary artery coil/gel foam, pneumothorax s/p chest tube placement. Critically ill. Remains sedated, intubated, however following commands this AM. Still requiring minimal dosages of pressors. Oxygenation trending up >95%. H&H stable. Echo RV with good function. Appreciate Crate Repairer and Neurology recs. Continue supportive care. D/C groin sheaths. Case discussed with Nitin Antunez and Dr. Esquivel (2) CAD (coronary artery disease) ICD Codes: I25.10 - Atherosclerotic heart disease of [place] coronary artery without angina pectoris (3) Aortic stenosis ICD Codes: I35.0 - Nonrheumatic aortic (valve) stenosis Brad Page MD Jun 04, 2017 12:38
[2017-06-04] MEDS ORDERED: SODIUM CHLOR 0.9% 1000 ML INJ 1,000 ML IV SCH (13:00)
[2017-06-04] MEDS: CHLORHEXIDINE 0.12% (ORAL KIT) 15 ML CUP MT SCH ×2 (13:30→20:00)
[2017-06-04] MEDS: INSULIN ASPART SUPPLEMENTAL SCALE SQ SCH ×3 (13:40→20:00)
--- NOTE | 2017-06-04 14:05 | RADRPT ---
EXAM DATE/TIME: 06/04/2017 12:22 [facility] COMPARISON: CHEST SINGLE AP, June 04, 2017, 4:37. INDICATIONS : Post central line placement. MEDICAL HISTORY : Hypothyroidism. Congestive heart failure. Carcinoma, colon. CAD. MV disease. A-fib. SURGICAL HISTORY : Tonsillectomy. Pacemaker. Colon resection. ENCOUNTER: Subsequent ACUITY: 3 days PAIN SCORE: Non-responsive. LOCATION: Left chest FINDINGS: A left internal jugular central line has its tip in the superior vena cava. There is no evidence of left-sided pneumothorax. There is a small right apical pneumothorax measuring 16 mm. Small right-si ded chest tube remains in place. There is increased subcutaneous emphysema within the right chest wa ll. The endotracheal tube is unchanged in position and has its tip 3 cm above the mikel. A nasogas tric tube is noted below diaphragm. A left subclavian dual lead pacemaker has its tips in the right heart. Left pleural effusion is stable. Pulmonary consolidations are again noted bilaterally and ar e worse on the left than the right consistent with pulmonary edema versus pneumonia. A left pleural e ffusion is stable. CONCLUSION: 1. Tiny 16 mm right apical pneumothorax. 2. Increased subcutaneous emphysema within the right chest wall. 3. Left internal jugular central line has its tip in the superior vena cava. No left pneumothorax i s noted. 4. No significant change in the pulmonary consolidations bilaterally (left worse than right) consist ent with pulmonary edema versus pneumonia. 5. Stable left pleural effusion. 6. Multiple tubes and lines are stable. Tulio Velazquez MD on June 04, 2017 at 12:46 Board Certified Radiologist. This report was verified electronically.
--- NOTE | 2017-06-04 14:21 | EKG ---
Date Performed: 06/03/2017 Time Performed: 12:54:46 PTAGE: 89 years EKG: Regular supraventricular rhythm. Possible left anterior fascicular block LVH with secondary repolarization abnormality Extensive ST-T changes are probably due to ventricular hypertrophy Abnorm al ECG PREVIOUS TRACING : 01/30/2013 03.30 DOCTOR: Domingo Alvarez Interpretating Date/Time 06/04/2017 14:17:00
[2017-06-04] MEDS ORDERED: METOPROLOL TARTRATE 5 MG/5 ML VIAL ONE (14:42)
[2017-06-04 15:50] LABS: MAGNESIUM 1.6 MG/DL (1.5-2.5); POTASSIUM 3.3 MEQ/L (3.5-5.1); SODIUM (NA) 147 MEQ/L (136-145)
[2017-06-04 16:08] LABS: ALKALINE PHOSPHATASE 53 U/L (45-117); ALT (GPT) 79 U/L (10-53); AST (GOT) 73 U/L (15-37); BICARBONATE 22.5 MEQ/L (21.0-32.0); BLOOD UREA NITROGEN 22 MG/DL (7-18); GLOMERULAR FILTRATION RATE 44 ML/MIN (>89); TOTAL BILIRUBIN ADULT 1.9 MG/DL (0.2-1.0)
[2017-06-04 16:17] LABS: ANION GAP 13 MEQ/L (5-15); CHLORIDE 112 MEQ/L (98-107)
[2017-06-04] MEDS: POTASSIUM CHLOR 40 MEQ PREMIX 100 ML IV PRN ×2 (16:25→18:53)
[2017-06-04] MEDS: MAGNESIUM SULFATE 1 GM PREMIX 100 ML IV SCH ×2 (16:30→17:30)
[2017-06-04] MEDS ORDERED: niCARdipine 25 MG/NS 250 ML Vial2Bag or IV room IV PRN ×2 (20:15)
[2017-06-05] VITALS (21 sets, daily range): BP systolic 116–148; BP diastolic 40–71; PULSE 68–134; RESP 18–25; TEMP 97.6–98.4; O2SAT 89–99
[2017-06-05] MEDS: RESP: ALBUTEROL 2.5 MG/IPRATROPIUM 0.5 MG NEB (SCH) NEB ×6 (00:05→21:18)
[2017-06-05] MEDS: SODIUM BICARBONATE 8.4% INJ 150 MEQ in WATER STERILE FOR INJ 850 ML IV SCH (00:29)
[2017-06-05] MEDS: METOPROLOL TARTRATE 5 MG/5 ML VIAL IV PUSH PRN (00:30)
[2017-06-05] MEDS: PIPERACIL-TAZO 3.375 GM PREMIX 50 ML IV SCH ×4 (00:30→20:38)
[2017-06-05] MEDS: MIDAZOLAM 100 MG/100 ML INJ 100 ML IV PRN ×3 (00:37→23:33)
[2017-06-05] MEDS: EPOPROSTENOL NEB SOLUTION 50 NG/KG/MIN 100 ML NEB SCH ×6 (00:38→23:40)
[2017-06-05] MEDS: NOREPINEPHRINE-DEXTROSE DRIP 250 ML IV PRN (00:45)
[2017-06-05] MEDS: INSULIN ASPART SUPPLEMENTAL SCALE SQ SCH ×6 (04:00→20:00)
[2017-06-05 04:56] LABS: HEMATOCRIT 35.4 % (35.0-46.0); MEAN CELL VOLUME 82.7 FL (80.0-100.0); MEAN CORPUSCULAR HEMOGLOBIN 28.8 PG (27.0-34.0); MEAN CORPUSCULAR HGB CONC 34.9 % (32.0-36.0); PLATELET COUNT 150 TH/MM3 (150-450); RED BLOOD COUNT 4.28 MIL/MM3 (4.00-5.30); REVIEW FLAG FINAL; WHITE BLOOD COUNT 28.6 TH/MM3 (4.0-11.0)
--- NOTE | 2017-06-05 05:08 | RADRPT ---
EXAM DATE/TIME: 06/05/2017 03:59 [facility] COMPARISON: CHEST SINGLE AP, June 04, 2017, 12:22. INDICATIONS : Shortness of breath, possible pulmonary disease. MEDICAL HISTORY : Hypothyroidism. Congestive heart failure. Carcinoma, colon. CAD A-Fib SURGICAL HISTORY : Tonsillectomy. Pacemaker. Colon resection. ENCOUNTER: Subsequent ACUITY: 4 - 6 days PAIN SCORE: Non-responsive. LOCATION: Left chest FINDINGS: The cardiac silhouette is enlarged in transverse diameter. There is patchy alveolar disease on the le ft compatible with edema or pneumonia. Right chest tube is in place with small right apical pneumotho rax. There are no signs of tension. There is subcutaneous emphysema along the right lateral chest wal l. CONCLUSION: 1. Small right apical pneumothorax unchanged. Extensive subcutaneous emphysema 2. Diffuse left sided pneumonia Shawn Perez MD on June 05, 2017 at 5:06 Board Certified Radiologist. This report was verified electronically.
[2017-06-05 05:37] LABS: ANION GAP 8 MEQ/L (5-15); AST (GOT) 45 U/L (15-37); BICARBONATE 27.2 MEQ/L (21.0-32.0); BLOOD UREA NITROGEN 25 MG/DL (7-18); CHLORIDE 112 MEQ/L (98-107); GLOMERULAR FILTRATION RATE 52 ML/MIN (>89); POTASSIUM 3.3 MEQ/L (3.5-5.1); SODIUM (NA) 147 MEQ/L (136-145)
[2017-06-05 05:40] LABS: ALKALINE PHOSPHATASE 53 U/L (45-117); ALT (GPT) 63 U/L (10-53); TOTAL BILIRUBIN ADULT 1.8 MG/DL (0.2-1.0)
[2017-06-05 06:38] LABS: BLOOD GAS BASE EXCESS 1.1 mmol/L (-2-2); BLOOD GAS CARBOXYHEMOGLOBIN 1.1 % (0-4); BLOOD GAS HCO3 25 mmol/L (22-26); BLOOD GAS METHEMOGLOBIN 1.2 % (0-2); BLOOD GAS O2 HGB SATURATION 92 % (90-100); BLOOD GAS OXYGEN CONTENT 15.1 Vol % (12.0-20.0); BLOOD GAS PCO2 42 mmHg (38-42); BLOOD GAS PO2 74 mmHg (61-120); BLOOD GAS TOTAL HGB 11.5 G/DL (12.0-16.0); TEMP CORR TO 98.6
[2017-06-05 06:39] LABS: CRITICAL VALUE NO; DRAW SITE ART LINE; FIO2 80 %; OXYGEN DEVICE VENTILATOR; STAT NO; VENT SETTINGS PC/AC
[2017-06-05] MEDS: POTASSIUM CHLOR 40 MEQ PREMIX 100 ML IV PRN (06:47)
[2017-06-05] MEDS ORDERED: VANCOMYCIN INJ 1,000 MG in SODIUM CHLOR 0.9% 250 ML INJ 250 ML IV ONE (07:45)
--- NOTE | 2017-06-05 07:59 | HHI.CCPN ---
Subjective Remarks/Hospital Course I was emergently called to solder making laborer by Dr. Corrales. Ms. Mahoney who is 89 yo female with history of severe aortic stenosis was undergoing left and right heart catheter for TAVR evaluation. With right heart catheterization patient developed acute massive hemoptysis with shock secondary to acute rupture of pulmonary artery. Patient was intubated by Dr. Potter and ETT was advance to Right lung for selective right lung ventilation due to massive hemorrhage from Left lung. On my arrival to solder making laborer, patient was rapidly dropping blood pressure. Dopamine was already started. I ordered Shantanu-Synephrine, at 300 mcg/ m in an attempt to increase MAP and also increase the pulmonary vasoconstriction. Levophed was also added to maintain blood pressure and rapidly titrated up. Emergency release blood initially 3 units was ordered stat along with 2 units of FFP, 1 unit of platelet. I also emergently contacted Dr. Vásquez was in the office. (Dr. Bedoya the on-call CT surgeon was operating). While on Levophed Shantanu-Synephrine and dopamine, patient developed coarse V. fib/V. tach, received brief CPR, and was DC cardioverted 1 with return of spontaneous circulation and sinus rhythm. I discussed with Dr. Corrales and anesthesiologist, I also contacted Dr. Josue from invasive radiology.Dr. Josue immediately arrived to the solder making laborer. Dr. Abdelrahman francis performed PARVIN which showed vigorous LV contraction but cavity was empty. Received Continuous massive fluid resuscitation with multiple crystalloid boluses, bicarbonate and calcium. Blood arrived and initially 3 units of PRBC, 2 units of 1 unit of platelets was given with calcium total 3 g given after blood transfusion. Because of persistent hypotension, additional 2 units of PRBC was given. While I resuscitated the patient, Dr. Corrales and Dr. Jennings performed right heart cath, identified bleeding of a small branch in the left pulmonary artery. They put put in 6 coils in the lower left lower pulmonary artery followed with Gelfoam closing the perforation. 06/04: Emergency chest 2 yesterday for right pneumothorax with hypotension and hypoxia. Remains intubated sedated and on Levophed. FiO2 remains at 100%, Sat improving to 94-95 %. UO adequate overnight. 2-D echo on my review normal LV and RV function, no PFO on bubble study 06/05: Patient is in atrial fibrillation currently on Cardene infusion for blood pressure control. Chest x-ray shows percutaneous emphysema and small apical pneumothorax. Remains on 80% FiO2. I discussed with interventional radiology. We will attempt CT-guided repositioning of the pigtail catheter and possibly upgrading to a larger tube. Urine output adequate 750 mL in 24 hours Objective Vital Signs Date Time Temp Pulse Resp B/P (MAP) Pulse Ox O2 Delivery O2 Flow Rate FiO2 06/05/17 04:00 118 06/05/17 04:00 80 06/05/17 04:00 97.9 18 126/66 (86) 93 127/50 (75) 06/05/17 04:00 Mechanical Ventilator Intake and Output 06/05/17 06/05/17 06/06/17 08:00 16:00 00:00 Intake Total 1347 ml Output Total 765 ml Balance 582 ml Result Diagram: 06/05/17 0430 06/05/17 0430 Other Results Laboratory Tests Test 06/05/17 06:19 Blood Gas Puncture Site ART LINE Blood Gas Patient Temperature 98.6 Blood Gas HCO3 25 mmol/L (22-26) Blood Gas Base Excess 1.1 mmol/L (-2-2) Blood Gas Oxygen Saturation 92 % (90-100) Arterial Blood pH 7.40 (7.380-7.420) Arterial Blood Partial Pressure CO2 42 mmHg (38-42) Arterial Blood Partial Pressure O2 74 mmHg (61-120) Arterial Blood Oxygen Content 15.1 Vol % (12.0-20.0) Arterial Blood Carboxyhemoglobin 1.1 % (0-4) Arterial Blood Methemoglobin 1.2 % (0-2) Blood Gas Hemoglobin 11.5 G/DL (12.0-16.0) Oxygen Delivery Device VENTILATOR Blood Gas Ventilator Setting PC/AC Blood Gas Inspired Oxygen 80 % Objective Remarks GENERAL: Intubated sedated with Versed. Opens eyes SKIN: Skin /dry. ENT: Orotracheally intubated. Small amount of bloody secretions from ETT NECK: Trachea midline. CARDIOVASCULAR: Remains in atrial fibrillation. No murmurs. On Cardene infusion RESPIRATORY: Bilateral coarse rhonchi and crackles. Diminished air entry in the left lung. Subcutaneous emphysema right chest GASTROINTESTINAL: Abdomen distended MUSCULOSKELETAL: LIJ central line placed NEUROLOGICAL: Patient is intubated, sedated with Versed. Opens eyes follows, moves extremities A/P Assessment and Plan NEURO: Keep on Versed for sedation and vent synchrony Neuromuscular paralysis as needed Sedation vacation only after FiO2 requirement has improved RESP: Massive hemoptysis Left peripheral pulmonary artery rupture with massive hemorrhage Acute hypoxemic respiratory failure Small right apical pneumothorax - s/p coil and gelfoam closure of Left lower pulmonary artery (peripheral small branch) by Rhoda Corrales and Michaela (see resuscitation note on 06/03/17) - PC/AC mechanical ventilation PEEP of 8, - s/p chest tube x2 for right pneumothorax on 06/03. 06/05 CXR tiny apical pneumothorax with subcutaneous emphysema - D/W IR, attempt fluoro guided repositioning of chest tube with probable upgrade to a larger bore chest tube - s/p Bronchoscopy with removal of blood predominantly from L lung, may need repeat bronch today - DuoNeb q 6hours and PRN - Continue Flolan CV/Heme: Profound hemorrhagic shock-resolved Anemia requiring transfusion Severe Atrial fibrillation with RVR - Of all pressor, currently on Cardene for blood pressure control. change to Cardizem gtt. - Titrate to keep map above 65. Trend lactic acid - Received 6 units of emergency release blood, 2 units of FFP and one of platelets 06/03/17 - Multiple crystalloid boluses were given - PARVIN normal LV contractility, volume depletion - 2D Echo today RV LV function look normal, no PFO - Start Lovenox 40 mg subcutaneous daily GI: - Nothing by mouth, OGT tube, IV Protonix - Start Tube feeds today with Jevity : - Monitor renal function closely. Payne catheter. Urine output adequate - IV Lasix 20 mg x1 ID: - Empiric Zosyn and single dose of vancomycin today prior to IR procedure - sputum culture ENDO: Hypokalemia Hypermagnesemia - Replace electrolytes per protocol PROPH: - Bilateral lower extremity SCDs. IV Protonix. Chemical DVT prophylaxis -start 06/05 with Lovenox 49 mg sq daily - IV Protonix LINES: - Left femoral cordis and central line Dcd 06/04. New [facility] central line placed CC time 50 min excluding procedure Tanika Esquivel MD Jun 05, 2017 07:59
[2017-06-05] MEDS: CHLORHEXIDINE 0.12% (ORAL KIT) 15 ML CUP MT SCH ×2 (08:00→20:40)
[2017-06-05] MEDS: DILTIAZEM 125 MG/NS 100 ML IV PRN ×4 (08:06→23:34)
[2017-06-05] MEDS ORDERED: FUROSEMIDE 20 MG/2 ML VIAL IV PUSH ONE ×2 (08:15→14:00)
[2017-06-05] MEDS ORDERED: POTASSIUM CHLOR 40 MEQ PREMIX 100 ML IV ONE (08:15)
[2017-06-05] MEDS ORDERED: EPINEPHrine HCL (1:10,000) 1 MG/10 ML SYRINGE ONE (08:24)
[2017-06-05] MEDS ORDERED: ATROPINE SULFATE 1 MG/10 ML SYRINGE ONE (08:24)
--- NOTE | 2017-06-05 09:05 | PD.CARD.PN ---
Subjective Subjective Remarks overnight events noted Sedated, Intubated Opening eyes and moving extremities Objective Medications Current Medications Medications (Trade) Dose Ordered Sig/Padmini Route Start Time Stop Time Status Last Admin (Benadryl) 50 mg [employer] PO 06/03/17 12:00 06/06/17 11:59 Sodium Chloride 1,000 ml @ 30 mls/hr Q24H IV 06/03/17 12:00 06/04/17 05:00 (Peridex 0.12% Liq) 15 ml BID@08,20 MT 06/03/17 20:00 06/04/17 20:00 Midazolam HCl 100 ml @ 2 mls/hr TITRATE PRN IV 06/03/17 17:00 06/05/17 05:00 Phenylephrine HCl 40 mg/Dextrose 500 ml @ 30 mls/hr TITRATE PRN IV 06/03/17 18:15 06/03/17 19:00 (Brethine Inj) 1 mg UNSCH PRN SQ 06/03/17 18:15 Norepinephrine Bitartrate 250 ml @ 7.5 mls/hr TITRATE PRN IV 06/03/17 18:15 06/05/17 00:45 (Brethine Inj) 1 mg UNSCH PRN SQ 06/03/17 18:15 (Duoneb Neb) 1 ampule Q4HR NEB NEB 06/03/17 20:00 06/05/17 07:20 (Duoneb Neb) 1 ampule Q2HR NEB PRN NEB 06/03/17 19:00 (Protonix Inj) 40 mg Q12H IV PUSH 06/03/17 20:00 06/04/17 20:00 Potassium Chloride 100 ml @ 50 mls/hr Q2H PRN IV 06/03/17 19:15 Potassium Chloride 100 ml @ 50 mls/hr Q2H PRN IV 06/03/17 19:15 (K-Lyte Cl Eff) 50 meq UNSCH PRN PO 06/03/17 19:15 Potassium Chloride 100 ml @ 25 mls/hr UNSCH PRN IV 06/03/17 19:15 06/05/17 06:47 Potassium Chloride 100 ml @ 50 mls/hr Q2H PRN IV 06/03/17 19:15 Magnesium Sulfate 4 gm/Sodium Chloride 100 ml @ 50 mls/hr UNSCH PRN IV 06/03/17 19:15 (Mag-Ox) 800 mg UNSCH PRN PO 06/03/17 19:15 Magnesium Sulfate 2 gm/Sodium Chloride 100 ml @ 50 mls/hr UNSCH PRN IV 06/03/17 19:15 06/04/17 16:45 (K-Phos) 2,000 mg Q4H PRN PO 06/03/17 19:15 Sodium Phosphate 30 mmol/Sodium Chloride 250 ml @ 42 mls/hr UNSCH PRN IV 06/03/17 19:15 (K-Phos) 2,000 mg UNSCH PRN PO/TUBE 06/03/17 19:15 Potassium Phosphate 30 mmol/ Sodium Chloride 260 ml @ 42 mls/hr UNSCH PRN IV 06/03/17 19:15 Epoprostenol Sodium 62.5 ml/ Sodium Chloride 100 ml @ 8 mls/hr Q8H NEB 06/03/17 21:00 06/05/17 00:38 Dopamine HCl/ Dextrose 500 ml @ 3.9 mls/hr CONTINUOUS WT BASED IV 06/03/17 23:00 06/04/17 05:39 (Brethine Inj) 1 mg UNSCH PRN SQ 06/03/17 23:15 Vasopressin 40 units/Dextrose 100 ml @ 1.5 mls/hr TITRATE PRN IV 06/03/17 23:15 Piperacillin Sod/ Tazobactam Sod 50 ml @ 100 mls/hr Q6H IV 06/04/17 01:00 06/05/17 06:47 (NovoLOG SUPPLEMENTAL SCALE) 1 Q4HR SQ 06/04/17 12:00 06/04/17 13:40 (D50w (Vial) Inj) 50 ml UNSCH PRN IV PUSH 06/04/17 12:15 (Glucagon Inj) 1 mg UNSCH PRN OTHER 06/04/17 12:15 (Lopressor Inj) 1.25 mg Q6H PRN IV PUSH 06/04/17 19:15 06/05/17 00:30 Nicardipine HCl 25 mg/Sodium Chloride 250 ml @ 50 mls/hr TITRATE PRN IV 06/04/17 20:15 06/04/17 20:30 Diltiazem HCl 125 mg/Sodium Chloride 125 ml @ 5 mls/hr TITRATE PRN IV 06/05/17 08:00 06/05/17 08:06 (Lovenox Inj) 40 mg Q24H SQ 06/05/17 16:00 Potassium Chloride 100 ml @ 25 mls/hr NOW ONCE IV 06/05/17 08:15 06/05/17 12:14 Vital Signs / I&O Vital Signs Date Time Temp Pulse Resp B/P (MAP) Pulse Ox O2 Delivery O2 Flow Rate FiO2 06/05/17 08:06 132 137/60 06/05/17 07:20 92 90 06/05/17 04:00 118 06/05/17 04:00 80 06/05/17 04:00 97.9 118 18 126/66 (86) 93 127/50 (75) 06/05/17 04:00 93 Mechanical Ventilator 80 06/05/17 03:55 89 80 06/05/17 01:30 94 80 06/05/17 00:45 90 78/36 06/05/17 00:00 105 06/05/17 00:00 80 06/05/17 00:00 98.4 105 18 117/55 (75) 93 116/44 (68) 06/05/17 00:00 93 Mechanical Ventilator 80 06/04/17 22:45 94 80 06/04/17 20:30 93 180/69 06/04/17 20:25 95 85 06/04/17 20:00 91 06/04/17 20:00 80 06/04/17 20:00 98.8 91 18 192/74 (113) 96 180/69 (106) 06/04/17 20:00 96 Mechanical Ventilator 80 06/04/17 16:30 94 Mechanical Ventilator 80 06/04/17 16:25 97 85 06/04/17 16:00 85 06/04/17 15:00 108 06/04/17 15:00 85 06/04/17 15:00 98.3 112 18 142/71 (94) 90 153/66 (95) 06/04/17 15:00 90 Mechanical Ventilator 85 06/04/17 12:50 95 80 06/04/17 12:00 96 Mechanical Ventilator 80 06/04/17 12:00 80 06/04/17 11:00 110 06/04/17 11:00 97 Mechanical Ventilator 100 06/04/17 11:00 99.2 82 18 168/81 (110) 97 156/68 (97) 06/04/17 09:58 91 147/80 I/O 06/04/17 06/04/17 06/04/17 06/05/17 06/05/17 06/05/17 06:59 14:59 22:59 06:59 14:59 22:59 Intake Total 2235 ml 1476 ml 1167 ml 1347 ml Output Total 1197 ml 510 ml 765 ml Balance 1038 ml 1476 ml 657 ml 582 ml Intake Oral 0 ml 0 ml 0 ml IV Total 2235 ml 1476 ml 1167 ml 1347 ml Output Urine Total 575 ml 500 ml 750 ml Gastric Drainage Total 550 ml 0 ml 0 ml Chest Tube Drainage Total 72 ml 10 ml 15 ml # Bowel Movements 1 0 0 Physical Exam GENERAL: Sedated, intubated SKIN: Warm and dry. HEAD: Normocephalic. EYES: No scleral icterus. No injection or drainage. NECK: Supple, trachea midline. No JVD or lymphadenopathy. CARDIOVASCULAR: Regular rate and rhythm 2/6SEM no gallops, or rubs. RESPIRATORY: Vented. GASTROINTESTINAL: Abdomen soft, non-tender, nondistended. EXTREMITIES: No cyanosis, or +edema. Laboratory Laboratory Tests Test 06/04/17 14:42 06/04/17 14:45 06/04/17 22:25 06/05/17 04:30 Hemoglobin 13.1 GM/DL 12.9 GM/DL 12.4 GM/DL Blood Urea Nitrogen 22 MG/DL 25 MG/DL Creatinine 1.16 MG/DL 1.00 MG/DL Random Glucose 166 MG/DL 139 MG/DL Total Protein 5.0 GM/DL 4.8 GM/DL Albumin 2.7 GM/DL 2.4 GM/DL Calcium Level 7.6 MG/DL 7.6 MG/DL Magnesium Level 1.6 MG/DL 2.0 MG/DL Alkaline Phosphatase 53 U/L 53 U/L Aspartate Amino Transf (AST/SGOT) 73 U/L 45 U/L Alanine Aminotransferase (ALT/SGPT) 79 U/L 63 U/L Total Bilirubin 1.9 MG/DL 1.8 MG/DL Sodium Level 147 MEQ/L 147 MEQ/L Potassium Level 3.3 MEQ/L 3.3 MEQ/L Chloride Level 112 MEQ/L 112 MEQ/L Carbon Dioxide Level 22.5 MEQ/L 27.2 MEQ/L Anion Gap 13 MEQ/L 8 MEQ/L Estimat Glomerular Filtration Rate 44 ML/MIN 52 ML/MIN Lactic Acid Level 4.0 mmol/L 2.6 mmol/L White Blood Count 28.6 TH/MM3 Red Blood Count 4.28 MIL/MM3 Hematocrit 35.4 % Mean Corpuscular Volume 82.7 FL Mean Corpuscular Hemoglobin 28.8 PG Mean Corpuscular Hemoglobin Concent 34.9 % Red Cell Distribution Width 16.0 % Platelet Count 150 TH/MM3 Mean Platelet Volume 8.5 FL Phosphorus Level 3.2 MG/DL Test 06/05/17 06:19 Blood Gas Puncture Site ART LINE Blood Gas Patient Temperature 98.6 Blood Gas HCO3 25 mmol/L Blood Gas Base Excess 1.1 mmol/L Blood Gas Oxygen Saturation 92 % Arterial Blood pH 7.40 Arterial Blood Partial Pressure CO2 42 mmHg Arterial Blood Partial Pressure O2 74 mmHg Arterial Blood Oxygen Content 15.1 Vol % Arterial Blood Carboxyhemoglobin 1.1 % Arterial Blood Methemoglobin 1.2 % Blood Gas Hemoglobin 11.5 G/DL Oxygen Delivery Device VENTILATOR Blood Gas Ventilator Setting PC/AC Blood Gas Inspired Oxygen 80 % Imaging Last 24 hours Impressions Chest X-Ray 06/05/17 0500 Signed Impressions: Service Date/Time: May 03:59 - CONCLUSION: 1. Small right apical pneumothorax unchanged. Extensive subcutaneous emphysema 2. Diffuse left sided pneumonia Shawn Perez MD Assessment and Plan Problem List: (1) Pulmonary arterial thrombosis ICD Codes: I26.99 - Other pulmonary embolism without acute cor pulmonale Status: Acute Plan: 89 y/o F with severe admitted with pulmonary artery perforation s/p left pulmonary artery coil/gel foam, pneumothorax s/p chest tube placement. Critically ill. Remains sedated, intubated, however following commands this AM. Off pressors. Oxygenation trending up >95%. H&H and creat stable. Echo RV with good function. Afib <24hrs continue to monitor. Appreciate [employer] [facility] [employer] [facility] recs. Recommendations: - Continue supportive care - IV diuresis - IR to reposition chest tube - Rate control for Afib Case discussed with Son Tulio and Dr. Esquivel (2) CAD (coronary artery disease) ICD Codes: I25.10 - Atherosclerotic heart disease of [place] coronary artery without angina pectoris (3) Aortic stenosis ICD Codes: I35.0 - Nonrheumatic aortic (valve) stenosis Brad Page MD Jun 05, 2017 09:05
--- NOTE | 2017-06-05 09:20 | RADRPT ---
EXAM DATE/TIME: 06/05/2017 08:47 [facility] COMPARISON: No previous studies available for comparison. INDICATIONS : Pneumonia, evaluate chest tubes. RADIATION DOSE: 5.34 CTDIvol (mGy) MEDICAL HISTORY : Congestive hearrt failure. Hypertension. Carcinoma, colon. Aortic stenosis. SURGICAL HISTORY : Pacemaker. Tonsillectomy. ENCOUNTER: Initial ACUITY: 1 day PAIN SCALE: Non-responsive LOCATION: chest TECHNIQUE: Volumetric scanning of the chest was performed. Using automated exposure control and adjustment of t he mA and/or kV according to patient size, radiation dose was kept as low as reasonably achievable to obtain optimal diagnostic quality images. DICOM format image data is available electronically for r eview and comparison. Follow-up recommendations for detected pulmonary nodules are based at a minimum on nodule size and pa tient risk factors according to Fleischner Society Guidelines. FINDINGS: LUNGS: Dense airspace consolidation in the lower lobes posteriorly bilaterally. Patchy ground glass opacitie s in the upper lobes bilaterally. PLEURAE: Moderate left-sided hemothorax. Trace right apical pneumothorax. There is a large bore chest tube whi ch appears to be in the major fissure. There is a smallbore chest tube coiled in the right anterior s oft tissues. There is extensive right-sided subcutaneous emphysema extending to the cervicothoracic j unction bilaterally. MEDIASTINUM: Pacemaker leads in place. No significant pericardial effusion. Dense mitral valve and aortic calcific ations. Coronary artery calcifications. Endovascular coils in the left lower lobe pulmonary artery br anches. AXILLAE: Within normal limits. No lymphadenopathy. MUSCULOSKELETAL: Within normal limits for patient age. MISCELLANEOUS: The visualized upper abdominal organs demonstrate no acute abnormality. CONCLUSION: 1. Moderate left-sided hemothorax with associated left lower lobe consolidation which may reflect a c ombination of compressive atelectasis, aspiration, and potentially lung infarction given recent pulmo nary artery embolization. 2. Trace right apical pneumothorax with large bore chest tube in the major fissure and smallbore ches t tube in the soft tissues. Significant subcutaneous emphysema extending to the cervicothoracic junct ion bilaterally. 3. Airspace consolidation in the right lower lobe posteriorly may reflect aspiration. Maxwell Aldana MD on June 05, 2017 at 9:02 Board Certified Radiologist. This report was verified electronically.
--- NOTE | 2017-06-05 10:37 | RADRPT ---
EXAM DATE/TIME: 06/05/2017 09:15 [facility] COMPARISON: No previous studies available for comparison. INDICATIONS : Patient with large left hemothorax in need of chest tube placement. MEDICAL HISTORY : HTN, HLD, A-Fib, CHF, Severe aortic stenosis, CAD, Anemia, GERD SURGICAL HISTORY : Left pulmonary artery embolization, Right chest tube placement, Pacemaker, Cardiac cath ENCOUNTER: Initial ACUITY: 2 days PAIN SCORE: 0/10 FLUORO TIME: 0.3 minutes IMAGE SERIES: 0 DEVICE(S): 1.) [id number] Non-locking Expel drainage catheter PROCEDURE : 1. Fluoroscopically guided chest tube placement. 2. Conscious sedation with continuous EKG and oximetry monitoring. The risks, benefits and alternatives to the procedure were explained and verbal and written consent w as obtained. The site was prepped in sterile fashion. Full sterile technique was used, including ca p, mask, sterile gloves and gown and a large sterile sheet. Hand hygiene and 2% chlorhexidine and/or betadine/alcohol prep was utilized per protocol for cutaneous antisepsis. The skin and subcutaneous tissues were infiltrated with local anesthetic solution. With ultrasound guidance the chest was punctured in the left lower anterior axillary interspace and t he prescribed catheter was placed. Wall suction was applied. Approximately 2 L of bloody fluid was r emoved following catheter placement the Post procedure images demonstrate satisfactory position of th e tube. The catheter was sutured in place and a Percu-Stay was applied. Conscious sedation was performed with the prescribed dosages and duration as above in the presence of an independent trained radiology nurse to assist in the monitoring of the patient. EKG and oximetry remained stable throughout the procedure. The patient tolerated the procedure well and there were n o complications. The patient was sent to post anesthesia recovery in stable condition. CONCLUSION: Uncomplicated chest tube placement as above. Maxwell Aldana MD on June 05, 2017 at 10:34 Board Certified Radiologist. This report was verified electronically.
[2017-06-05 10:56] LABS: HEMATOCRIT 32.1 % (35.0-46.0); MEAN CELL VOLUME 83.3 FL (80.0-100.0); MEAN CORPUSCULAR HEMOGLOBIN 29.1 PG (27.0-34.0); MEAN CORPUSCULAR HGB CONC 34.9 % (32.0-36.0); PLATELET COUNT 136 TH/MM3 (150-450); RED BLOOD COUNT 3.86 MIL/MM3 (4.00-5.30); RED CELL DISTRIBUTION WIDTH 16.3 % (11.6-17.2); REVIEW FLAG FINAL; WHITE BLOOD COUNT 24.9 TH/MM3 (4.0-11.0)
[2017-06-05 11:06] LABS: INTERNATIONAL NORMALIZED RATIO 1.8 RATIO; PROTHROMBIN TIME - PATIENT 19.9 SEC (9.8-11.6)
[2017-06-05 11:12] LABS: BLOOD GAS BASE EXCESS 0.8 mmol/L (-2-2); BLOOD GAS CARBOXYHEMOGLOBIN 1.2 % (0-4); BLOOD GAS HCO3 25 mmol/L (22-26); BLOOD GAS METHEMOGLOBIN 1.2 % (0-2); BLOOD GAS O2 HGB SATURATION 97 % (90-100); BLOOD GAS PCO2 39 mmHg (38-42); BLOOD GAS PO2 191 mmHg (61-120); BLOOD GAS TOTAL HGB 11.4 G/DL (12.0-16.0); CRITICAL VALUE NO; OXYGEN DEVICE VENTILATOR; TEMP CORR TO 98.6
[2017-06-05 11:13] LABS: DRAW SITE ALINE; FIO2 100 %; STAT YES; VENT SETTINGS SEE COMMENTS
[2017-06-05] MEDS: PANTOPRAZOLE SODIUM 40 MG VIAL IV PUSH SCH ×2 (11:15→20:39)
[2017-06-05 11:29] LABS: BICARBONATE 27.1 MEQ/L (21.0-32.0); POTASSIUM 3.6 MEQ/L (3.5-5.1)
--- NOTE | 2017-06-05 11:52 | RADRPT ---
EXAM DATE/TIME: 06/05/2017 11:17 [facility] COMPARISON: CHEST SINGLE AP, June 05, 2017, 3:59. INDICATIONS : Evaluate chest tube placements MEDICAL HISTORY : HTN, HLD, A-Fib, CHF, Severe aortic stenosis, CAD, Anemia, GERD SURGICAL HISTORY : Left pulmonary artery embolization, Right chest tube placement, Pacemaker, Cardiac cath ENCOUNTER: Subsequent ACUITY: 2 days PAIN SCORE: 0/10 LOCATION: chest FINDINGS: A single view of the chest demonstrates the support devices are in place. There appears to be a new l eft-sided chest tube. There is improved aeration of the left lung on today's study compared to the pr ior exam. No definite pneumothorax on the left side. There appears to be a small right apical pneumot horax with 6 mm of separation.. There is scattered bilateral interstitial infiltrates throughout both lungs. The heart size is stable. There is subcutaneous emphysema overlying the right chest.. CONCLUSION: 1. Improved aeration of the left lung compared to the prior examination. 2. New left chest tube in place with no definite pneumothorax on the left side. 3. Small apical right pneumothorax with 6 mm of separation.. 4. Scattered bilateral interstitial infiltrates. Aleksey Au MD on June 05, 2017 at 11:46 Board Certified Radiologist. This report was verified electronically.
[2017-06-05] MEDS: NS 1000P @30 MLS/HR (KVO) IV SCH (12:00)
[2017-06-05] MEDS ORDERED: ROCURONIUM INJ 50 MG/5 ML VIAL IV ONE (13:00)
--- NOTE | 2017-06-05 13:29 | EKG ---
Date Performed: 06/04/2017 Time Performed: 16:49:18 PTAGE: 89 years EKG: Atrial fibrillation with rapid ventricular response Diffuse ST-T abnormality, cannot exclud e ischemia Possible atrial spikes Clinical correlation needed Abnormal ECG PREVIOUS TRACING : 06/03/2017 12.54 DOCTOR: Leonardo Newberry Interpretating Date/Time 06/05/2017 13:28:20
[2017-06-05] MEDS: FREE WATER OG-TUBE SCH ×2 (14:00→18:00)
[2017-06-05] MEDS: POTASSIUM CHLORIDE 25 MEQ EFFERVESCENT TAB PO SCH ×2 (14:15→20:38)
[2017-06-05] MEDS: DOCUSATE SODIUM 100 MG/10 ML UDC PO SCH ×2 (14:15→21:00)
--- NOTE | 2017-06-05 14:42 | PD.PROCEDR ---
Procedure Note Procedure Therapeutic and diagnostic bronchoscopy Description of procedure: On mechanical ventilation, 100 % FiO2, On versed gtt. Fentanyl 50 mcg IVP given. The scope was passed through the elbow side-port of the vent circuit. There was a small amount of old blood predominantly in bilateral lower lobes. Removed with multiple saline lavage and suctioning. The tracheobronchial tree showed no inflammation and anatomical branching was normal. Bilateral LL BAL performed Tanika Esquivel MD Jun 05, 2017 14:42
[2017-06-05] MEDS ORDERED: ENOXAPARIN SODIUM 40 MG/0.4 ML SYRINGE SQ SCH (16:00)
--- NOTE | 2017-06-05 17:40 | RADRPT ---
EXAM DATE/TIME: 06/05/2017 16:09 [facility] COMPARISON: CHEST SINGLE AP, June 05, 2017, 11:17. INDICATIONS : Hemothorax MEDICAL HISTORY : Hypertension. A-Fib, CHF, Severe aortic stenosis, CAD, Anemia, GERD SURGICAL HISTORY : Left pulmonary artery embolization, Right chest tube placement, Pacemaker, ENCOUNTER: Subsequent ACUITY: 2 days PAIN SCORE: Non-responsive. LOCATION: Bilateral chest FINDINGS: 2 portable frontal views of the chest show a large caliber thoracostomy tube on the left. Tip is at t he mid to suprahilar region. There has been development of a moderate-sized pneumothorax on the left. The pleural surfaces are by approximately 2 cm. The pneumothorax is subpulmonic and latera l with left apical involvement. No effusion observed. A small pneumothorax is stable on the right abdiel e. A surgically placed chest tube is seen on the right. Diffuse pulmonary consolidation is seen bilat erally the left lung is limited in evaluation due to partial collapse. Heart is mildly enlarged. Embo lization coils overlie the left infrahilar region. Endotracheal tube tip 4 cm from the mikel. Dual-l ead pacing device on the left. Left-sided central line. Subcutaneous air overlies the chest. CONCLUSION: 1. Moderate size pneumothorax on the left despite large caliber chest tube. No tension component. 2. Stable tiny pneumothorax on the right. 3. Diffuse groundglass consolidation involving the right lung and visualized portions of the left adelina tre Cain Jr., MD on June 05, 2017 at 17:35 Board Certified Radiologist. This report was verified electronically.
[2017-06-05] MEDS: FUROSEMIDE 20 MG/2 ML VIAL IV PUSH SCH (18:00)
--- NOTE | 2017-06-05 19:46 | RADRPT ---
EXAM DATE/TIME: 06/05/2017 19:25 [facility] COMPARISON: CHEST SINGLE AP, June 05, 2017, 16:09. INDICATIONS : Pneumothorax. MEDICAL HISTORY : Hypertension. A-Fib, CHF, Severe aortic stenosis, CAD, Anemia, GERD SURGICAL HISTORY : Left pulmonary artery embolization, Right chest tube placement, Pacemaker, ENCOUNTER: Subsequent ACUITY: 1 day PAIN SCORE: Non-responsive. LOCATION: Bilateral chest FINDINGS: Left chest tube remains in place. Left apical pneumothorax remains however is diminished in volume no w now to 1 cm in maximal width in the apex with minimal lateral component. 2 cm right apical pneumoth orax is appreciated with subcutaneous emphysema the right chest. Groundglass consolidation in the adelina gs are again appreciated with ET tube above the mikel nasogastric tube is in the midline of the stom ach as well as bipolar pacemaker overlying the left hemithorax. CONCLUSION: Left apical pneumothorax decreased in size to 1 cm with with left chest tube in place. Stable right a pical 2 cm pneumothorax. Otherwise stable chest findings with ET tube above the mikel Dylon Ingram MD on June 05, 2017 at 19:42 Board Certified Radiologist. This report was verified electronically.
[2017-06-06] VITALS (19 sets, daily range): BP systolic 133–185; BP diastolic 53–75; PULSE 68–114; RESP 18–34; TEMP 98.1–100.1; O2SAT 95–98
[2017-06-06] MEDS: RESP: ALBUTEROL 2.5 MG/IPRATROPIUM 0.5 MG NEB (SCH) NEB ×6 (00:14→20:53)
[2017-06-06] MEDS: PIPERACIL-TAZO 3.375 GM PREMIX 50 ML IV SCH ×4 (00:37→21:30)
[2017-06-06] MEDS: INSULIN ASPART SUPPLEMENTAL SCALE SQ SCH ×5 (04:00→20:00)
[2017-06-06] MEDS: EPOPROSTENOL NEB SOLUTION 50 NG/KG/MIN 100 ML NEB SCH ×2 (05:55)
[2017-06-06] MEDS: FREE WATER OG-TUBE SCH ×4 (06:00→18:00)
--- NOTE | 2017-06-06 06:02 | RADRPT ---
EXAM DATE/TIME: 06/06/2017 03:47 [facility] COMPARISON: CHEST SINGLE AP, June 05, 2017, 19:25. INDICATIONS : Evaluate for pnuemothorax MEDICAL HISTORY : Hypertension. Congestive heart failure. Gastroesophageal reflux disease. A-fib, Anemia SURGICAL HISTORY : Pacemaker. Right chest tube, Left pulmonary embolization ENCOUNTER: Subsequent ACUITY: 2 days PAIN SCORE: Non-responsive. LOCATION: Bilateral chest FINDINGS: A single view of the chest demonstrates bilateral pneumothoraces measuring 2.5 cm in the right apex a nd 1.2 cm laterally on the left. Left-sided chest tube, left jugular central line, and endotracheal t ube are unchanged. Interstitial densities are again seen. Osseous structures are intact. CONCLUSION: 1. Slight enlargement of bilateral pneumothoraces. Devan Waldrop MD on June 06, 2017 at 5:58 Board Certified Radiologist. This report was verified electronically.
[2017-06-06 08:21] LABS: AUTOMATED NEUTROPHIL # 25.2 TH/MM3 (1.8-7.7); BASOPHIL % 0.1 % (0.0-2.0); HEMATOCRIT 35.5 % (35.0-46.0); HEMO FLAGS DIFF FINAL; LYMPH % 1.8 % (9.0-44.0); LYMPHOCYTE # 0.5 TH/MM3 (1.0-4.8); MEAN CELL VOLUME 84.1 FL (80.0-100.0); MEAN CORPUSCULAR HEMOGLOBIN 28.1 PG (27.0-34.0); MEAN CORPUSCULAR HGB CONC 33.4 % (32.0-36.0); MONO % 4.9 % (0.0-8.0); NEUT % 93.2 % (16.0-70.0); PLATELET COUNT 162 TH/MM3 (150-450); RED BLOOD COUNT 4.23 MIL/MM3 (4.00-5.30); WHITE BLOOD COUNT 27.1 TH/MM3 (4.0-11.0)
[2017-06-06 08:49] LABS: ALKALINE PHOSPHATASE 85 U/L (45-117); ALT (GPT) 50 U/L (10-53); ANION GAP 8 MEQ/L (5-15); AST (GOT) 46 U/L (15-37); BLOOD UREA NITROGEN 20 MG/DL (7-18); CHLORIDE 110 MEQ/L (98-107); GLOMERULAR FILTRATION RATE 66 ML/MIN (>89); SODIUM (NA) 148 MEQ/L (136-145); TOTAL BILIRUBIN ADULT 2.9 MG/DL (0.2-1.0)
[2017-06-06 08:55] LABS: POTASSIUM 2.8 MEQ/L (3.5-5.1)
--- NOTE | 2017-06-06 08:58 | HHI.CCPN ---
Subjective Remarks/Hospital Course I was emergently called to dental laboratory assistant by Dr. Corrales. Ms. Mahoney who is 89 yo female with history of severe aortic stenosis was undergoing left and right heart catheter for TAVR evaluation. With right heart catheterization patient developed acute massive hemoptysis with shock secondary to acute rupture of pulmonary artery. Patient was intubated by Dr. Potter and ETT was advance to Right lung for selective right lung ventilation due to massive hemorrhage from Left lung. On my arrival to dental laboratory assistant, patient was rapidly dropping blood pressure. Dopamine was already started. I ordered Shantanu-Synephrine, at 300 mcg/ m in an attempt to increase MAP and also increase the pulmonary vasoconstriction. Levophed was also added to maintain blood pressure and rapidly titrated up. Emergency release blood initially 3 units was ordered stat along with 2 units of FFP, 1 unit of platelet. I also emergently contacted Dr. Vásquez was in the office. (Dr. Bedoya the on-call CT surgeon was operating). While on Levophed Shantanu-Synephrine and dopamine, patient developed coarse V. fib/V. tach, received brief CPR, and was DC cardioverted 1 with return of spontaneous circulation and sinus rhythm. I discussed with Dr. Corrales and anesthesiologist, I also contacted Dr. Josue from invasive radiology.Dr. Josue immediately arrived to the dental laboratory assistant. Dr. Abdelrahman francis performed PARVIN which showed vigorous LV contraction but cavity was empty. Received Continuous massive fluid resuscitation with multiple crystalloid boluses, bicarbonate and calcium. Blood arrived and initially 3 units of PRBC, 2 units of 1 unit of platelets was given with calcium total 3 g given after blood transfusion. Because of persistent hypotension, additional 2 units of PRBC was given. While I resuscitated the patient, Dr. Corrales and Dr. Jennings performed right heart cath, identified bleeding of a small branch in the left pulmonary artery. They put put in 6 coils in the lower left lower pulmonary artery followed with Gelfoam closing the perforation. 06/04: Emergency chest 2 yesterday for right pneumothorax with hypotension and hypoxia. Remains intubated sedated and on Levophed. FiO2 remains at 100%, Sat improving to 94-95 %. UO adequate overnight. 2-D echo on my review normal LV and RV function, no PFO on bubble study 06/05: Patient is in atrial fibrillation currently on Cardene infusion for blood pressure control. Chest x-ray shows percutaneous emphysema and small apical pneumothorax. Remains on 80% FiO2. I discussed with interventional radiology. We will attempt CT-guided repositioning of the pigtail catheter and possibly upgrading to a larger tube. Urine output adequate 750 mL in 24 hours 06/06: Currently remains in A. fib with rate controlled, hypertensive on Cardizem drip. Oxygen saturation has improved FiO2 now to 40% with saturation 97%. Urine output excellent with Lasix 4.5 L in 24 hours. Chest x-ray today shows 2.5 cm bilateral apical pneumothorax, also left side has 1.2 cm lateral pneumothorax Objective Vital Signs Date Time Temp Pulse Resp B/P (MAP) Pulse Ox O2 Delivery O2 Flow Rate FiO2 06/06/17 06:50 98 40 06/06/17 03:00 Mechanical Ventilator 06/06/17 03:00 98.1 84 18 149/55 (86) 149/54 (85) Intake and Output 06/06/17 06/06/17 06/07/17 08:00 16:00 00:00 Intake Total 617 ml Output Total 2490 ml Balance -1873 ml Result Diagram: 06/06/17 0715 06/05/17 1015 Other Results Laboratory Tests Test 06/05/17 11:02 Blood Gas Puncture Site SRAVANTHI Blood Gas Patient Temperature 98.6 Blood Gas HCO3 25 mmol/L (22-26) Blood Gas Base Excess 0.8 mmol/L (-2-2) Blood Gas Oxygen Saturation 97 % (90-100) Arterial Blood pH 7.42 (7.380-7.420) Arterial Blood Partial Pressure CO2 39 mmHg (38-42) Arterial Blood Partial Pressure O2 191 mmHg (61-120) Arterial Blood Oxygen Content 16.0 Vol % (12.0-20.0) Arterial Blood Carboxyhemoglobin 1.2 % (0-4) Arterial Blood Methemoglobin 1.2 % (0-2) Blood Gas Hemoglobin 11.4 G/DL (12.0-16.0) Oxygen Delivery Device VENTILATOR Blood Gas Ventilator Setting SEE COMMENTS Blood Gas Inspired Oxygen 100 % Objective Remarks GENERAL: Intubated sedated with Versed. Moving extremities SKIN: Skin /dry. ENT: Orotracheally intubated. No significant secretion in the ETT. NECK: Trachea midline. CARDIOVASCULAR: Remains in atrial fibrillation, rate controlled. No murmurs. On Cardizem infusion RESPIRATORY: Bilateral coarse rhonchi and crackles. Diminished air entry at bases. Subcutaneous emphysema right chest. Bilateral large bore chest tubes with no air leak GASTROINTESTINAL: Abdomen distended MUSCULOSKELETAL: LIJ central line placed NEUROLOGICAL: Patient is intubated, sedated with Versed. Moves extremities A/P Assessment and Plan NEURO: Keep on Versed for sedation and vent synchrony Slowly start sedation vacation Neuromuscular paralysis as needed Sedation vacation only after FiO2 requirement has improved RESP: Left peripheral pulmonary artery rupture with massive hemorrhage Massive hemoptysis Acute hypoxemic respiratory failure Bilateral apical pneumothorax large Left hemothorax s/p IR chest tube placement Residual L hemothorax - s/p coil and gelfoam closure of Left lower pulmonary artery (peripheral small branch) by Rhoda Corrales and Michaela (see resuscitation note on 06/03/17) - PC/AC mechanical ventilation PEEP of 8, Fio2 down to 40% - s/p chest tube x2 for right pneumothorax on 06/03. - IR, placed 24 F Left chest tube 06/05 with drainage of 2 L hemothorax, residual pneumothorax present - Chest x-ray shows bilateral apical pneumo and also left lateral and deep sulcal pneumo on left. Plan for bilateral pigtail chest tubes anteriorly - s/p Bronchoscopy with removal of blood predominantly from L lung, s/p repeat bronch 06/06 - DuoNeb q 6hours and PRN - Start Flolan wean CV/Heme: Hemorrhagic shock-resolved Anemia requiring transfusion Severe Atrial fibrillation with RVR - Off all pressor, currently on Cardizem gtt. - Titrate to keep map above 65. Trend lactic acid - Continue IV Lasix. Restart home metoprolol at 25 mg by mouth every 8 hours. Restart home dose of digoxin - Received 6 units of emergency release blood, 2 units of FFP and one of platelets 06/03/17. Multiple crystalloid boluses were given, PARVIN normal LV contractility, volume depletion - 2D Echo today RV LV function look normal, no PFO - Start Lovenox 40 mg subcutaneous daily in 24 hours GI: - OGT tube, IV Protonix. Start Tube feeds today with Jevity : - Monitor renal function closely. Payne catheter. Urine output adequate - IV Lasix ID: - Empiric Zosyn and single dose of vancomycin given yesterday - BAL culture negative - Give additional 1 dose vanc and pharmacy to dose ENDO: Hypokalemia Hypermagnesemia - Replace electrolytes per protocol PROPH: - Bilateral lower extremity SCDs. IV Protonix. Chemical DVT prophylaxis -start 06/07 with Lovenox 40 mg sq daily - IV Protonix LINES: - Left femoral cordis and central line Dcd 06/04. New LIJ central line placed CC time 50 min excluding procedure Tanika Esquivel MD Jun 06, 2017 08:58
[2017-06-06] MEDS ORDERED: PILL SPLITTER OTHER PRN (09:00)
--- NOTE | 2017-06-06 09:10 | PD.CARD.PN ---
Subjective Subjective Remarks overnight events noted Sedated, Intubated Opening eyes and moving extremities Oxygenation improving Objective Medications Current Medications Medications (Trade) Dose Ordered Sig/Padmini Route Start Time Stop Time Status Last Admin (Benadryl) 50 mg COUNTER CUTTER PO 06/03/17 12:00 06/06/17 11:59 (Peridex 0.12% Liq) 15 ml BID@08,20 MT 06/03/17 20:00 06/05/17 20:40 Midazolam HCl 100 ml @ 2 mls/hr TITRATE PRN IV 06/03/17 17:00 06/05/17 23:33 Phenylephrine HCl 40 mg/Dextrose 500 ml @ 30 mls/hr TITRATE PRN IV 06/03/17 18:15 06/03/17 19:00 (Brethine Inj) 1 mg UNSCH PRN SQ 06/03/17 18:15 Norepinephrine Bitartrate 250 ml @ 7.5 mls/hr TITRATE PRN IV 06/03/17 18:15 06/05/17 00:45 (Brethine Inj) 1 mg UNSCH PRN SQ 06/03/17 18:15 (Duoneb Neb) 1 ampule Q4HR NEB NEB 06/03/17 20:00 06/06/17 08:55 (Duoneb Neb) 1 ampule Q2HR NEB PRN NEB 06/03/17 19:00 (Protonix Inj) 40 mg Q12H IV PUSH 06/03/17 20:00 06/05/17 20:39 Potassium Chloride 100 ml @ 50 mls/hr Q2H PRN IV 06/03/17 19:15 Potassium Chloride 100 ml @ 50 mls/hr Q2H PRN IV 06/03/17 19:15 (K-Lyte Cl Eff) 50 meq UNSCH PRN PO 06/03/17 19:15 Potassium Chloride 100 ml @ 25 mls/hr UNSCH PRN IV 06/03/17 19:15 06/05/17 06:47 Potassium Chloride 100 ml @ 50 mls/hr Q2H PRN IV 06/03/17 19:15 Magnesium Sulfate 4 gm/Sodium Chloride 100 ml @ 50 mls/hr UNSCH PRN IV 06/03/17 19:15 (Mag-Ox) 800 mg UNSCH PRN PO 06/03/17 19:15 Magnesium Sulfate 2 gm/Sodium Chloride 100 ml @ 50 mls/hr UNSCH PRN IV 06/03/17 19:15 06/04/17 16:45 (K-Phos) 2,000 mg Q4H PRN PO 06/03/17 19:15 Sodium Phosphate 30 mmol/Sodium Chloride 250 ml @ 42 mls/hr UNSCH PRN IV 06/03/17 19:15 (K-Phos) 2,000 mg UNSCH PRN PO/TUBE 06/03/17 19:15 Potassium Phosphate 30 mmol/ Sodium Chloride 260 ml @ 42 mls/hr UNSCH PRN IV 06/03/17 19:15 Epoprostenol Sodium 62.5 ml/ Sodium Chloride 100 ml @ 8 mls/hr Q8H NEB 06/03/17 21:00 06/06/17 05:55 (Brethine Inj) 1 mg UNSCH PRN SQ 06/03/17 23:15 Vasopressin 40 units/Dextrose 100 ml @ 1.5 mls/hr TITRATE PRN IV 06/03/17 23:15 Piperacillin Sod/ Tazobactam Sod 50 ml @ 100 mls/hr Q6H IV 06/04/17 01:00 06/06/17 06:07 (NovoLOG SUPPLEMENTAL SCALE) 1 Q4HR SQ 06/04/17 12:00 06/04/17 13:40 (D50w (Vial) Inj) 50 ml UNSCH PRN IV PUSH 06/04/17 12:15 (Glucagon Inj) 1 mg UNSCH PRN OTHER 06/04/17 12:15 (Lopressor Inj) 1.25 mg Q6H PRN IV PUSH 06/04/17 19:15 06/05/17 00:30 Diltiazem HCl 125 mg/Sodium Chloride 125 ml @ 5 mls/hr TITRATE PRN IV 06/05/17 08:00 06/05/17 23:34 (Free Water) 250 ml Q6HR OG-TUBE 06/05/17 14:00 06/06/17 06:00 (Colace Liq) 100 mg Q12HR PO 06/05/17 14:00 06/05/17 14:15 (K-Lyte Cl Eff) 25 meq Q12HR PO 06/05/17 14:00 06/05/17 20:38 (Lasix Inj) 20 mg BID@,18 IV PUSH 06/05/17 18:00 06/05/17 18:00 (Lanoxin) 0.125 mg DAILY PO 06/06/17 09:00 (Lopressor) 12.5 mg Q8HR PO 06/06/17 08:45 (Pill Splitter) 1 ea UNSCH PRN OTHER 06/06/17 09:00 Vital Signs / I&O Vital Signs Date Time Temp Pulse Resp B/P (MAP) Pulse Ox O2 Delivery O2 Flow Rate FiO2 06/06/17 06:50 98 40 06/06/17 04:00 50 06/06/17 03:56 98 50 06/06/17 03:00 97 Mechanical Ventilator 50 06/06/17 03:00 98.1 84 18 149/55 (86) 97 149/54 (85) 06/06/17 03:00 94 06/06/17 00:30 98 50 06/06/17 00:00 50 06/05/17 23:34 89 153/61 06/05/17 23:00 83 06/05/17 23:00 97 Mechanical Ventilator 60 06/05/17 23:00 98.2 84 18 138/54 (82) 96 148/49 (82) 06/05/17 22:50 96 50 06/05/17 21:18 97 50 06/05/17 20:00 83 124/62 (82) 143/55 (84) 06/05/17 20:00 60 06/05/17 19:00 97.8 83 18 124/62 (82) 98 143/55 (84) 06/05/17 19:00 98 Mechanical Ventilator 60 06/05/17 19:00 83 06/05/17 17:02 97 70 06/05/17 16:35 97 85 06/05/17 16:00 85 06/05/17 15:00 78 06/05/17 15:00 94 Mechanical Ventilator 100 06/05/17 15:00 97.7 88 20 137/64 (88) 94 145/54 (84) 06/05/17 13:30 94 100 06/05/17 13:05 94 100 06/05/17 12:00 100 06/05/17 11:16 98 80 06/05/17 11:03 98 100 06/05/17 11:00 99 Mechanical Ventilator 80 06/05/17 11:00 71 06/05/17 11:00 97.6 68 18 120/71 (87) 99 123/40 (67) I/O 06/05/17 06/05/17 06/05/17 06/06/17 06/06/17 06/06/17 07:00 15:00 23:00 07:00 15:00 23:00 Intake Total 1347 ml 1329 ml 806 ml 617 ml Output Total 765 ml 2242 ml 2490 ml Balance 582 ml 1329 ml -1436 ml -1873 ml Intake Oral 0 ml 0 ml IV Total 1347 ml 500 ml 241 ml Tube Feeding 5 ml 117 ml FFP 629 ml Blood Product IV Normal Saline Flush 200 ml Tube Irrigant 60 ml Other 500 ml 500 ml Output Urine Total 750 ml 2100 ml 2450 ml Gastric Drainage Total 0 ml 0 ml Chest Tube Drainage Total 15 ml 142 ml 40 ml # Bowel Movements 0 0 1 Physical Exam GENERAL: Sedated, intubated SKIN: Warm and dry. HEAD: Normocephalic. EYES: No scleral icterus. No injection or drainage. NECK: Supple, trachea midline. No JVD or lymphadenopathy. CARDIOVASCULAR: Regular rate and rhythm 2/6SEM no gallops, or rubs. RESPIRATORY: Vented. GASTROINTESTINAL: Abdomen soft, non-tender, nondistended. EXTREMITIES: No cyanosis, or edema. Laboratory Laboratory Tests Test 06/05/17 10:15 06/05/17 11:02 06/06/17 07:15 White Blood Count 24.9 TH/MM3 27.1 TH/MM3 Red Blood Count 3.86 MIL/MM3 4.23 MIL/MM3 Hemoglobin 11.2 GM/DL 11.9 GM/DL Hematocrit 32.1 % 35.5 % Mean Corpuscular Volume 83.3 FL 84.1 FL Mean Corpuscular Hemoglobin 29.1 PG 28.1 PG Mean Corpuscular Hemoglobin Concent 34.9 % 33.4 % Red Cell Distribution Width 16.3 % 16.0 % Platelet Count 136 TH/MM3 162 TH/MM3 Mean Platelet Volume 8.5 FL 8.6 FL Prothrombin Time 19.9 SEC Prothromb Time International Ratio 1.8 RATIO Activated Partial Thromboplast Time 33.0 SEC Fibrinogen 374 mg/dL Blood Urea Nitrogen 25 MG/DL 20 MG/DL Creatinine 0.95 MG/DL 0.82 MG/DL Random Glucose 118 MG/DL 114 MG/DL Total Protein 4.4 GM/DL 5.7 GM/DL Calcium Level 7.4 MG/DL 8.3 MG/DL Sodium Level 149 MEQ/L 148 MEQ/L Potassium Level 3.6 MEQ/L 2.8 MEQ/L Chloride Level 114 MEQ/L 110 MEQ/L Carbon Dioxide Level 27.1 MEQ/L 30.0 MEQ/L Anion Gap 8 MEQ/L 8 MEQ/L Estimat Glomerular Filtration Rate 55 ML/MIN 66 ML/MIN Protein Corrected Calcium 9.0 MG/DL Blood Gas Puncture Site SRAVANTHI Blood Gas Patient Temperature 98.6 Blood Gas HCO3 25 mmol/L Blood Gas Base Excess 0.8 mmol/L Blood Gas Oxygen Saturation 97 % Arterial Blood pH 7.42 Arterial Blood Partial Pressure CO2 39 mmHg Arterial Blood Partial Pressure O2 191 mmHg Arterial Blood Oxygen Content 16.0 Vol % Arterial Blood Carboxyhemoglobin 1.2 % Arterial Blood Methemoglobin 1.2 % Blood Gas Hemoglobin 11.4 G/DL Oxygen Delivery Device VENTILATOR Blood Gas Ventilator Setting SEE COMMENTS Blood Gas Inspired Oxygen 100 % Neutrophils (%) (Auto) 93.2 % Lymphocytes (%) (Auto) 1.8 % Monocytes (%) (Auto) 4.9 % Eosinophils (%) (Auto) 0.0 % Basophils (%) (Auto) 0.1 % Neutrophils # (Auto) 25.2 TH/MM3 Lymphocytes # (Auto) 0.5 TH/MM3 Monocytes # (Auto) 1.3 TH/MM3 Eosinophils # (Auto) 0.0 TH/MM3 Basophils # (Auto) 0.0 TH/MM3 CBC Comment DIFF FINAL Differential Comment Albumin 2.6 GM/DL Alkaline Phosphatase 85 U/L Aspartate Amino Transf (AST/SGOT) 46 U/L Alanine Aminotransferase (ALT/SGPT) 50 U/L Total Bilirubin 2.9 MG/DL Imaging Last 24 hours Impressions Chest X-Ray 06/06/17 0300 Signed Impressions: Service Date/Time: Tuesday, June 06, 2017 03:47 - CONCLUSION: 1. Slight enlargement of bilateral pneumothoraces. Devan Waldrop MD Chest X-Ray 06/05/17 1900 Signed Impressions: Service Date/Time: May 19:25 - CONCLUSION: Left apical pneumothorax decreased in size to 1 cm with with left chest tube in place. Stable right apical 2 cm pneumothorax. Otherwise stable chest findings with ET tube above the mikel Dylon Ingram MD Chest X-Ray 06/05/17 1600 Signed Impressions: Service Date/Time: May 16:09 - CONCLUSION: 1. Moderate size pneumothorax on the left despite large caliber chest tube. No tension component. 2. Stable tiny pneumothorax on the right. 3. Diffuse groundglass consolidation involving the right lung and visualized portions of the left lung. Luc Cain Jr., MD Assessment and Plan Problem List: (1) Shock, postoperative ICD Codes: T81.10XA - Postprocedural shock unspecified, initial encounter Status: Resolved Plan: Stable. Continues improving Recommendations: Replace electrolytes Restart digoxin and Lopressor Reposition chest tubes Case discusses with Dr. Esquivel (2) Pulmonary arterial thrombosis ICD Codes: I26.99 - Other pulmonary embolism without acute cor pulmonale Status: Acute (3) CAD (coronary artery disease) ICD Codes: I25.10 - Atherosclerotic heart disease of [place] coronary artery without angina pectoris (4) Aortic stenosis ICD Codes: I35.0 - Nonrheumatic aortic (valve) stenosis Brad Page MD Jun 06, 2017 09:10
[2017-06-06] MEDS: POTASSIUM CHLOR 40 MEQ PREMIX 100 ML IV PRN ×3 (09:14→18:46)
[2017-06-06] MEDS: METOPROLOL TARTRATE 25 MG TAB PO SCH ×3 (09:16→21:28)
[2017-06-06] MEDS: DOCUSATE SODIUM 100 MG/10 ML UDC PO SCH ×2 (09:19→21:28)
[2017-06-06] MEDS: POTASSIUM CHLORIDE 25 MEQ EFFERVESCENT TAB PO SCH ×2 (09:19→21:28)
[2017-06-06] MEDS: FUROSEMIDE 20 MG/2 ML VIAL IV PUSH SCH ×2 (09:19→20:32)
[2017-06-06] MEDS: PANTOPRAZOLE SODIUM 40 MG VIAL IV PUSH SCH ×2 (09:20→21:28)
[2017-06-06] MEDS: METOPROLOL TARTRATE 5 MG/5 ML VIAL IV PUSH PRN ×2 (09:22→20:29)
[2017-06-06] MEDS ORDERED: POTASSIUM CHLORIDE 25 MEQ EFFERVESCENT TAB PO ONE (09:30)
--- NOTE | 2017-06-06 10:50 | PD.PROCEDR ---
Procedure Note Procedure Right pigtail chest tube placement Indication pneumothorax, persistent s/q emphysema Procedure Consent obtained and time out performed. Patient was placed in optimal position. Full barrier and sterile precautions were used, skin and subcutaneous tissue at the marked site was infiltrated with 1% lidocaine, in the second intercostal space, midclavicular line. A small skin carlos was made with scalpel. Introducer needle was placed into the pleural space and chinchilla of air was obtained. The guidewire was inserted through the needle and the needle was removed. Track was dilated and a 10 [place] pigtail catheter was introduced into the pleural space using Seldinger technique. Wire was removed and pigtail catheter was attached to the pleural vac and placed on -40 wall suction. Chest x -ray postprocedure pending at this time. Patient tolerated procedure well Tanika Esquivel MD Jun 06, 2017 10:50
[2017-06-06] MEDS: DIGOXIN 0.125 MG TAB PO SCH (11:20)
--- NOTE | 2017-06-06 11:40 | RADRPT ---
EXAM DATE/TIME: 06/06/2017 11:12 [facility] COMPARISON: CT THORAX W/O CONTRAST, June 05, 2017, 8:47. CHEST SINGLE AP, June 06, 2017, 3:47. INDICATIONS : Right chest tube placement. MEDICAL HISTORY : Congestive heart failure. Hypertension. Carcinoma, colon. Aortic stenosis SURGICAL HISTORY : Pacemaker. Splenectomy. ENCOUNTER: Subsequent ACUITY: 4 - 6 days PAIN SCORE: Non-responsive. LOCATION: Bilateral chest FINDINGS: Portable semiupright AP view of the chest demonstrates a normal-sized cardiac silhouette. Endotrachea l tube, nasogastric tube, and left IJ central line remain present. There is a large bore right chest tube in place and there is a small bore pigtail pleural catheter at the apex of the right hemithorax. The right pneumothorax as removed. There is patchy interstitial and airspace opacities throughout th e right lung with extensive supraclavicular and right chest wall subcutaneous emphysema. Embolization coils overlie the left infrahilar region and there is a catheter overlying the left hemithorax. Ther e are diffuse interstitial and airspace opacities throughout the left lung is well and there is a que stionable tiny left apical pneumothorax. CONCLUSION: 1. Pigtail catheter at the apex the right hemithorax has been placed with resolution of the right pne umothorax. There is extensive bilateral supraclavicular and right chest wall subcutaneous emphysema. 2. Tiny left apical pneumothorax remains present. 3. Diffuse interstitial and air space opacities are present throughout the lungs bilaterally similar to the prior study. Alvin Cason MD on June 06, 2017 at 11:34 Board Certified Radiologist. This report was verified electronically.
[2017-06-06] MEDS: CHLORHEXIDINE 0.12% (ORAL KIT) 15 ML CUP MT SCH ×2 (11:56→20:00)
--- NOTE | 2017-06-06 12:33 | ECHRPT ---
Indication: CONCLUSIONS Limited study Preserved LV systolic function Calcified Aortic Valve Moderate to Severe Aortic Stenosis Moderate Mitral Regusrgitation No pericardial effusion BP: / HR: Rhythm: Technical Quality: Medications Complications Proc. Components Brad Page MD (Electronically Signed) Final Date:06 June 2017 12:32
[2017-06-06] MEDS ORDERED: EPOPROSTENOL NEB SOLUTION 40 NG/KG/MIN 100 ML NEB SCH ×2 (13:00)
--- NOTE | 2017-06-06 15:29 | ECHRPT ---
Indication: CONCLUSIONS Normal left ventricular size with upper normal wall thickness. The left ventricular systolic functio n is normal with an estimated ejection fraction in the range of 60-65%. Left ventricular diastolic function para meters are normal. No regional wall motion abnormalities are present. No atrial level shunt is observed with agitated saline contrast administration. Severe mitral annular calcification. [id number]-[id number] mitral valve regurgitation. The aortic valve is not well visualized. It may be heavily calcified and moderately thickened. A s uboptimal transvalvular mean gradient was measured at 34 mm Hg, consistent with moderate to severe stenosis. Trace aortic regurgitation. The tricuspid valve is not well visualized. Trace regurgitation. BP: 120 / 73 HR: 68 Rhythm: Sinus MEASUREMENTS (Male / Female) Normal Values Technical Quality:Technically difficult study 2D ECHO LVOT Diameter 2.0 cm DOPPLER AV Peak Velocity 377.5 cm/s AV Peak Gradient 57.0 mmHg AV Mean Gradient 29.0 mmHg AV Velocity Time Integral 50.0 cm LVOT Peak Velocity 105.0 cm/s LVOT Peak Gradient 4.4 mmHg LVOT Velocity Time Integral 10.4 cm LVOT Cardiac Index 1340.8 cm/minm AV Area Cont Eq vti 0.7 cm AV Area Cont Eq pk 0.9 cm MV Area PHT 3.1 cm Mitral E Point Velocity 67.1 cm/s Mitral A Point Velocity 54.3 cm/s Mitral E to A Ratio 1.2 TR Peak Velocity 321.0 cm/s TR Peak Gradient 41.2 mmHg Right Atrial Pressure 10.0 mmHg Pulmonary Artery Systolic Pressu 51.2 mmHg Right Ventricular Systolic Press 51.2 mmHg FINDINGS LEFT VENTRICLE Normal left ventricular size with upper normal wall thickness. The left ventricular systolic functio n is normal with an estimated ejection fraction in the range of 60-65%. Left ventricular diastolic function para meters are normal. No regional wall motion abnormalities are present. RIGHT VENTRICLE Normal right ventricular size and systolic function. LEFT ATRIUM The left atrial size is normal. RIGHT ATRIUM The right atrial size is normal. ATRIAL SEPTUM No atrial level shunt is demonstrated by color flow Doppler interrogation. No atrial level shunt is observed with agitated saline contrast administration. AORTA The aortic root and proximal ascending aorta are normal in size on limited imaging. MITRAL VALVE Severe mitral annular calcification. [id number]-kbby mitral valve regurgitation. AORTIC VALVE The aortic valve is not well visualized. It may be heavily calcified and moderately thickened. A s uboptimal transvalvular mean gradient was measured at 34 mm Hg, consistent with moderate to severe stenosis. Trace aortic regurgitation. TRICUSPID VALVE The tricuspid valve is not well visualized. Trace regurgitation. PULMONARY VALVE The pulmonary valve is not well visualized. VESSELS The inferior vena cava is dilated. PERICARDIUM No pericardial effusion. Nathan Jones MD Edited by: [facility] [employer] Services Coordinator (Electronically Signed) Final Date:04 June 2017 12:19 Amended: 06 June 2017 15:28
[2017-06-06] MEDS ORDERED: PROPOFOL 1000 MG/100 ML IV PRN (20:00)
[2017-06-06] MEDS ORDERED: EPOPROSTENOL NEB SOLUTION 30 NG/KG/MIN 100 ML NEB SCH ×2 (21:00)
[2017-06-07] VITALS (17 sets, daily range): BP systolic 100–194; BP diastolic 45–79; PULSE 68–87; RESP 16–29; TEMP 97.8–99.8; O2SAT 95–99
[2017-06-07] MEDS: DILTIAZEM 125 MG/NS 100 ML IV PRN ×2 (00:55)
[2017-06-07] MEDS: RESP: ALBUTEROL 2.5 MG/IPRATROPIUM 0.5 MG NEB (SCH) NEB ×4 (00:55→21:07)
[2017-06-07] MEDS: PIPERACIL-TAZO 3.375 GM PREMIX 50 ML IV SCH ×4 (01:10→21:13)
[2017-06-07] MEDS: INSULIN ASPART SUPPLEMENTAL SCALE SQ SCH ×6 (04:00→20:00)
[2017-06-07] MEDS ORDERED: EPOPROSTENOL NEB SOLUTION 20 NG/KG/MIN 100 ML NEB SCH ×2 (05:00)
[2017-06-07] MEDS: FREE WATER OG-TUBE SCH ×3 (05:07→12:00)
[2017-06-07] MEDS: METOPROLOL TARTRATE 25 MG TAB PO SCH ×3 (06:19→21:15)
--- NOTE | 2017-06-07 07:13 | RADRPT ---
EXAM DATE/TIME: 06/07/2017 06:55 [facility] COMPARISON: CHEST SINGLE AP, June 06, 2017, 11:12. INDICATIONS : Evaluate for pneumothorax- Right side chest tube MEDICAL HISTORY : Congestive heart failure. Hypertension. Carcinoma, colon. Aortic stenosis SURGICAL HISTORY : Splenectomy. Pacemaker. ENCOUNTER: Subsequent ACUITY: 1 week PAIN SCORE: Non-responsive. LOCATION: Bilateral chest FINDINGS: The patient is rotated towards the left. There are bilateral chest tubes in place. There is some luce ncy again seen over the left apex concerning for a minimal left pneumothorax, this is unchanged. The small left pneumothorax is not as easily seen as it was in the prior exam given the rotation. Signifi cant worsening is not appreciated. The ET tube tip is 3.3 cm from the mikel. The NG tube is directed into the stomach. There is a left internal jugular central line in place tip overlying the SVC. Ther e is hazy density seen throughout the lungs bilaterally. The heart size is normal. There are emboliza tion coils seen over the left infrahilar region. There continues to be subcutaneous emphysema seen ov er the right chest and the supraclavicular and lower neck regions bilaterally. CONCLUSION: 1. Bilateral chest tubes with a persistent mild left pneumothorax. 2. Diffuse consolidation seen throughout both lungs likely representing diffuse processes such as ariel ma, diffuse infection or ARDS. 3. Tubes and lines in good position. 4. Subcutaneous emphysema. Alvin Ortiz MD on June 07, 2017 at 7:06 Board Certified Radiologist. This report was verified electronically.
[2017-06-07] MEDS ORDERED: Vancomycin Consult Pharmacy 1 EA OTHER SCH (07:15)
--- NOTE | 2017-06-07 07:23 | HHI.CCPN ---
Subjective Remarks/Hospital Course I was emergently called to [facility] employment associate by Dr. Corrales. Ms. Mahoney who is 89 yo female with history of severe aortic stenosis was undergoing left and right heart catheter for TAVR evaluation. With right heart catheterization patient developed acute massive hemoptysis with shock secondary to acute rupture of pulmonary artery. Patient was intubated by Dr. Potter and ETT was advance to Right lung for selective right lung ventilation due to massive hemorrhage from Left lung. On my arrival to [facility], patient was rapidly dropping blood pressure. Dopamine was already started. I ordered Shantanu-Synephrine, at 300 mcg/ m in an attempt to increase MAP and also increase the pulmonary vasoconstriction. Levophed was also added to maintain blood pressure and rapidly titrated up. Emergency release blood initially 3 units was ordered stat along with 2 units of FFP, 1 unit of platelet. I also emergently contacted Dr. Vásquez was in the office. (Dr. Bedoya the on-call CT surgeon was operating). While on Levophed Shantanu-Synephrine and dopamine, patient developed coarse V. fib/V. tach, received brief CPR, and was DC cardioverted 1 with return of spontaneous circulation and sinus rhythm. I discussed with Dr. Corrales and anesthesiologist, I also contacted Dr. Josue from invasive radiology.Dr. Josue immediately arrived to the labor employment associate. Dr. Abdelrahman francis performed PARVIN which showed vigorous LV contraction but cavity was empty. Received Continuous massive fluid resuscitation with multiple crystalloid boluses, bicarbonate and calcium. Blood arrived and initially 3 units of PRBC, 2 units of 1 unit of platelets was given with calcium total 3 g given after blood transfusion. Because of persistent hypotension, additional 2 units of PRBC was given. While I resuscitated the patient, Dr. Corrales and Dr. Jennings performed right heart cath, identified bleeding of a small branch in the left pulmonary artery. They put put in 6 coils in the lower left lower pulmonary artery followed with Gelfoam closing the perforation. 06/04: Emergency chest 2 yesterday for right pneumothorax with hypotension and hypoxia. Remains intubated sedated and on Levophed. FiO2 remains at 100%, Sat improving to 94-95 %. UO adequate overnight. 2-D echo on my review normal LV and RV function, no PFO on bubble study 06/05: Patient is in atrial fibrillation currently on Cardene infusion for blood pressure control. Chest x-ray shows percutaneous emphysema and small apical pneumothorax. Remains on 80% FiO2. I discussed with interventional radiology. We will attempt CT-guided repositioning of the pigtail catheter and possibly upgrading to a larger tube. Urine output adequate 750 mL in 24 hours 06/06: Currently remains in A. fib with rate controlled, hypertensive on Cardizem drip. Oxygen saturation has improved FiO2 now to 40% with saturation 97%. Urine output excellent with Lasix 4.5 L in 24 hours. Chest x-ray today shows 2.5 cm bilateral apical pneumothorax, also left side has 1.2 cm lateral pneumothorax 06/07: Intubated, on low dose propofol for ventilator synchrony. FiO2 40% oxygen saturation 99%. Chest x-ray and labs pending urine output 2.7 L. 3 chest tubes with no air leak. If neuro exam not improving off sedation will check CT of the head. Currently on propofol will furniture mover to Precedex to initiate weaning trials. On weaning doses of inhaled Flolan currently on 30, 000 ng Objective Vital Signs Date Time Temp Pulse Resp B/P (MAP) Pulse Ox O2 Delivery O2 Flow Rate FiO2 06/07/17 04:17 40 06/07/17 04:08 98 06/07/17 03:12 78 06/07/17 03:00 Mechanical Ventilator 06/07/17 00:55 179/66 06/06/17 23:00 98.6 24 Intake and Output 06/07/17 06/07/17 06/08/17 08:00 16:00 00:00 Intake Total 177 ml Balance 177 ml Result Diagram: 06/06/17 0715 06/06/17 1620 Objective Remarks GENERAL: Intubated sedated with Propofol. Moving extremities intermittently SKIN: Skin /dry. ENT: Orotracheally intubated. No significant secretion in the ETT. NECK: Trachea midline. CARDIOVASCULAR: Remains in atrial fibrillation, rate controlled. No murmurs. RESPIRATORY: Bilateral coarse rhonchi and crackles. Diminished air entry at bases. Subcutaneous emphysema right chest significantly improved. Bilateral large bore chest tubes with no air leak, right anterior chest tueb with no air leak GASTROINTESTINAL: Abdomen distended, having BM MUSCULOSKELETAL: LIJ central line placed NEUROLOGICAL: Patient is intubated, sedated with Versed. Moves extremities intermittently Urinary Catheter: Yes Assessment to: Continue Vascular Central Line Catheter: Yes Assessment to: Continue A/P Assessment and Plan NEURO: - Discontinue propofol, start Precedex to facilitate weaning trials - Daily sedation vacation - Continue to hold home sertraline - If neuro exam not improving check CT of the head RESP: Left lower pulmonary artery rupture with massive hemorrhage Massive hemoptysis Acute hypoxemic respiratory failure Large Left hemothorax s/p IR chest tube placement Bilateral apical pneumothorax Residual L pneumothorax after hemothorax evacuation - s/p coil and gelfoam closure of Left lower pulmonary artery (peripheral small branch) by Rhoda Corrales and Michaela (see resuscitation note on 06/03/17) - PC/AC mechanical ventilation PEEP of 5, Fio2 down to 40%. Daily SBT for 2 hours - s/p chest tube x2 for right pneumothorax on 06/03. New apical chest tube placed 06/06/17 - IR, placed 24 F Left chest tube 06/05 with drainage of 2 L hemothorax, residual pneumothorax present, now resolved - CXR 06/07, resolution of right improving subcutaneous emphysema. Small residual left apical pneumo - s/p Bronchoscopy with removal of blood predominantly from L lung, s/p repeat bronch 06/06 - DuoNeb q 6hours and PRN - Flolan being weaned off - Check extremity venous duplex CV/Heme: Hemorrhagic shock-resolved Anemia requiring transfusion Severe Atrial fibrillation with RVR Possible history of ITP - Wean off Cardizem gtt. Start home Cardizem CD 120 mg daily - Cleviprex, when necessary hydralazine (well beta blocked) to keep systolic blood pressure less than 150 - Continue IV Lasix, reduce dose to 20 mg daily. Home metoprolol at 25 mg by mouth every 8 hours. Restarted home dose of digoxin - On Multaq at home. Defer to Dr. Corrales - Received 6 units of emergency release blood, 2 units of FFP and one of platelets 06/03/17. Multiple crystalloid boluses were given, PARVIN normal LV contractility, volume depletion - 2D Echo 06/04 RV LV function look normal, no PFO - Start Lovenox 40 mg subcutaneous daily - Holding Promacta GI: - OGT tube, IV Protonix. Tube feeds with Jevity. Having regular BMs : - Monitor renal function closely. Payne catheter. Urine output adequate - IV Lasix ID: - Empiric Zosyn and single dose of vancomycin given, Vanc pharmacy to dose - Avilez culture due to low-grade fever - BAL culture negative ENDO: Hypokalemia Hypermagnesemia - Replace electrolytes per protocol PROPH: - Bilateral lower extremity SCDs. IV Protonix. Chemical DVT prophylaxis -start 06/07 with Lovenox 40 mg sq daily - Check venous Duplex - IV Protonix LINES: - Left femoral cordis and central line Dcd 06/04. New LIJ central line placed CC time 40 min excluding procedure Tanika Esquivel MD Jun 07, 2017 07:23
[2017-06-07 07:56] LABS: HEMATOCRIT 33.2 % (35.0-46.0); MEAN CELL VOLUME 85.2 FL (80.0-100.0); MEAN CORPUSCULAR HEMOGLOBIN 28.7 PG (27.0-34.0); MEAN CORPUSCULAR HGB CONC 33.7 % (32.0-36.0); PLATELET COUNT 160 TH/MM3 (150-450); RED BLOOD COUNT 3.89 MIL/MM3 (4.00-5.30); RED CELL DISTRIBUTION WIDTH 16.1 % (11.6-17.2); REVIEW FLAG FINAL; WHITE BLOOD COUNT 20.9 TH/MM3 (4.0-11.0)
[2017-06-07] MEDS ORDERED: RESP: ALBUTEROL 2.5 MG/IPRATROPIUM 0.5 MG NEB (SCH) NEB (08:00)
[2017-06-07] MEDS ORDERED: VANCOMYCIN INJ 1,000 MG in SODIUM CHLOR 0.9% 250 ML INJ 250 ML IV ONE (08:00)
[2017-06-07] MEDS ORDERED: ENOXAPARIN SODIUM 40 MG/0.4 ML SYRINGE SQ SCH (08:00)
[2017-06-07 08:26] LABS: ALKALINE PHOSPHATASE 100 U/L (45-117); ALT (GPT) 43 U/L (10-53); ANION GAP 6 MEQ/L (5-15); AST (GOT) 45 U/L (15-37); BICARBONATE 29.9 MEQ/L (21.0-32.0); BLOOD UREA NITROGEN 22 MG/DL (7-18); CHLORIDE 108 MEQ/L (98-107); GLOMERULAR FILTRATION RATE 70 ML/MIN (>89); POTASSIUM 3.5 MEQ/L (3.5-5.1); SODIUM (NA) 144 MEQ/L (136-145); TOTAL BILIRUBIN ADULT 1.9 MG/DL (0.2-1.0)
[2017-06-07] MEDS: LOSARTAN 50 MG TAB PO SCH (08:26)
[2017-06-07] MEDS: DILTIAZEM-CD 120 MG CAP ER PO SCH (08:26)
[2017-06-07] MEDS: DIGOXIN 0.125 MG TAB PO SCH (08:26)
[2017-06-07] MEDS: DOCUSATE SODIUM 100 MG/10 ML UDC PO SCH ×2 (08:27→21:14)
[2017-06-07] MEDS: POTASSIUM CHLORIDE 25 MEQ EFFERVESCENT TAB PO SCH ×2 (08:28→21:14)
[2017-06-07] MEDS: PANTOPRAZOLE SODIUM 40 MG VIAL IV PUSH SCH ×2 (08:28→21:14)
[2017-06-07] MEDS: FUROSEMIDE 20 MG/2 ML VIAL IV PUSH SCH (08:29)
[2017-06-07] MEDS: DEXMEDETOMIDINE INJ 200 MCG in SODIUM CHLORIDE 0.9% INJ 50 ML IV PRN (08:30)
[2017-06-07] MEDS: hydrALAZINE HCL 20 MG/ML VIAL IV PUSH PRN (09:09)
--- NOTE | 2017-06-07 09:36 | PD.CARD.PN ---
Subjective Subjective Remarks overnight events noted Sedated, Intubated Opening eyes and moving extremities Oxygenation improving Objective Medications Current Medications Medications (Trade) Dose Ordered Sig/Padmini Route Start Time Stop Time Status Last Admin (Peridex 0.12% Liq) 15 ml BID@08,20 MT 06/03/17 20:00 06/06/17 20:00 (Duoneb Neb) 1 ampule Q2HR NEB PRN NEB 06/03/17 19:00 (Protonix Inj) 40 mg Q12H IV PUSH 06/03/17 20:00 06/07/17 08:28 Potassium Chloride 100 ml @ 50 mls/hr Q2H PRN IV 06/03/17 19:15 06/06/17 11:06 Potassium Chloride 100 ml @ 50 mls/hr Q2H PRN IV 06/03/17 19:15 (K-Lyte Cl Eff) 50 meq UNSCH PRN PO 06/03/17 19:15 Potassium Chloride 100 ml @ 25 mls/hr UNSCH PRN IV 06/03/17 19:15 06/06/17 18:46 Potassium Chloride 100 ml @ 50 mls/hr Q2H PRN IV 06/03/17 19:15 Magnesium Sulfate 4 gm/Sodium Chloride 100 ml @ 50 mls/hr UNSCH PRN IV 06/03/17 19:15 (Mag-Ox) 800 mg UNSCH PRN PO 06/03/17 19:15 Magnesium Sulfate 2 gm/Sodium Chloride 100 ml @ 50 mls/hr UNSCH PRN IV 06/03/17 19:15 06/04/17 16:45 (K-Phos) 2,000 mg Q4H PRN PO 06/03/17 19:15 Sodium Phosphate 30 mmol/Sodium Chloride 250 ml @ 42 mls/hr UNSCH PRN IV 06/03/17 19:15 (K-Phos) 2,000 mg UNSCH PRN PO/TUBE 06/03/17 19:15 Potassium Phosphate 30 mmol/ Sodium Chloride 260 ml @ 42 mls/hr UNSCH PRN IV 06/03/17 19:15 Piperacillin Sod/ Tazobactam Sod 50 ml @ 100 mls/hr Q6H IV 06/04/17 01:00 06/07/17 06:30 (NovoLOG SUPPLEMENTAL SCALE) 1 Q4HR SQ 06/04/17 12:00 06/04/17 13:40 (D50w (Vial) Inj) 50 ml UNSCH PRN IV PUSH 06/04/17 12:15 (Glucagon Inj) 1 mg UNSCH PRN OTHER 06/04/17 12:15 (Lopressor Inj) 1.25 mg Q6H PRN IV PUSH 06/04/17 19:15 06/06/17 20:29 Diltiazem HCl 125 mg/Sodium Chloride 125 ml @ 5 mls/hr TITRATE PRN IV 06/05/17 08:00 06/07/17 00:55 (Free Water) 250 ml Q6HR OG-TUBE 06/05/17 14:00 06/07/17 05:07 (Colace Liq) 100 mg Q12HR PO 06/05/17 14:00 06/07/17 08:27 (K-Lyte Cl Eff) 25 meq Q12HR PO 06/05/17 14:00 06/07/17 08:28 (Lanoxin) 0.125 mg DAILY PO 06/06/17 09:00 06/07/17 08:26 (Pill Splitter) 1 ea UNSCH PRN OTHER 06/06/17 09:00 Epoprostenol Sodium 25 ml/ Sodium Chloride 100 ml @ 8 mls/hr Q8H NEB 06/07/17 05:00 06/07/17 12:59 06/07/17 08:52 Epoprostenol Sodium 12.5 ml/ Sodium Chloride 100 ml @ 8 mls/hr Q8H NEB 06/07/17 13:00 06/07/17 20:59 (Lovenox Inj) 40 mg Q24H SQ 06/07/17 08:00 06/07/17 08:28 (Duoneb Neb) 1 ampule Q4HR NEB NEB 06/07/17 08:00 06/07/17 07:50 Dexmedetomidine HCl 200 mcg/ Sodium Chloride 52 ml @ 3.27 mls/hr TITRATE PRN IV 06/07/17 07:00 06/07/17 08:30 (Lasix Inj) 20 mg DAILY IV PUSH 06/07/17 09:00 06/07/17 08:29 (Lopressor) 25 mg Q8HR PO 06/07/17 14:00 Clevidipine 50 ml @ 2 mls/hr TITRATE PRN IV 06/07/17 07:00 (Cardizem Cd) 120 mg DAILY PO 06/07/17 09:00 06/07/17 08:26 (Cozaar) 50 mg DAILY PO 06/07/17 09:00 06/07/17 08:26 Pharmacy Profile Note 0 ml @ 0 mls/hr UNSCH OTHER 06/07/17 07:15 (Apresoline Inj) 20 mg Q4H PRN IV PUSH 06/07/17 08:00 06/07/17 09:09 (Synthroid) 50 mcg DAILY@0600 PO 06/07/17 08:00 Vital Signs / I&O Vital Signs Date Time Temp Pulse Resp B/P (MAP) Pulse Ox O2 Delivery O2 Flow Rate FiO2 06/07/17 07:50 98 40 06/07/17 04:17 40 06/07/17 04:08 98 40 06/07/17 03:12 78 06/07/17 03:00 99.8 68 18 114/54 (74) 97 132/51 (78) 06/07/17 03:00 98 Mechanical Ventilator 40 06/07/17 00:56 97 40 06/07/17 00:55 70 179/66 06/07/17 00:40 40 06/06/17 23:10 68 06/06/17 23:00 98.6 69 24 158/75 (102) 97 182/69 (106) 06/06/17 23:00 98 Mechanical Ventilator 40 06/06/17 22:30 96 40 06/06/17 20:53 97 40 06/06/17 20:06 40 06/06/17 20:06 97 Mechanical Ventilator 40 06/06/17 20:06 100.1 06/06/17 20:00 70 164/73 (103) 175/65 (101) 06/06/17 19:00 83 06/06/17 17:41 98 40 06/06/17 16:00 40 06/06/17 15:00 70 06/06/17 15:00 99.1 70 34 157/74 (101) 97 180/64 (102) 06/06/17 15:00 95 Mechanical Ventilator 40 06/06/17 14:50 40 06/06/17 13:10 95 40 06/06/17 12:20 97 40 06/06/17 12:00 40 06/06/17 11:00 97 Mechanical Ventilator 40 06/06/17 11:00 99.0 69 21 136/70 (92) 97 161/67 (98) 06/06/17 11:00 69 I/O 06/06/17 06/06/17 06/06/17 06/07/17 06/07/17 06/07/17 07:00 15:00 23:00 07:00 15:00 23:00 Intake Total 667 ml 287 ml 921 ml 1335 ml Output Total 2490 ml 2842 ml 2717 ml Balance -1823 ml 287 ml -1921 ml -1382 ml Intake Oral 0 ml 0 ml IV Total 50 ml 287 ml 250 ml 177 ml Tube Feeding 117 ml 171 ml 368 ml Tube Irrigant 70 ml Other 500 ml 500 ml 720 ml Output Urine Total 2450 ml 2700 ml 2595 ml Gastric Drainage Total 0 ml Chest Tube Drainage Total 40 ml 142 ml 122 ml # Bowel Movements 1 0 Physical Exam GENERAL: Sedated, intubated, pupils reactive SKIN: Warm and dry. HEAD: Normocephalic. EYES: No scleral icterus. No injection or drainage. NECK: Supple, trachea midline. No JVD or lymphadenopathy. CARDIOVASCULAR: Irr Irr 2/6SEM no gallops, or rubs. RESPIRATORY: Vented. GASTROINTESTINAL: Abdomen soft, non-tender, nondistended. EXTREMITIES: No cyanosis, or +edema. Laboratory Laboratory Tests Test 06/06/17 16:20 06/07/17 06:48 Potassium Level 3.5 MEQ/L 3.5 MEQ/L White Blood Count 20.9 TH/MM3 Red Blood Count 3.89 MIL/MM3 Hemoglobin 11.2 GM/DL Hematocrit 33.2 % Mean Corpuscular Volume 85.2 FL Mean Corpuscular Hemoglobin 28.7 PG Mean Corpuscular Hemoglobin Concent 33.7 % Red Cell Distribution Width 16.1 % Platelet Count 160 TH/MM3 Mean Platelet Volume 8.8 FL Blood Urea Nitrogen 22 MG/DL Creatinine 0.78 MG/DL Random Glucose 128 MG/DL Total Protein 5.3 GM/DL Albumin 2.0 GM/DL Calcium Level 7.9 MG/DL Phosphorus Level 1.8 MG/DL Magnesium Level 2.0 MG/DL Alkaline Phosphatase 100 U/L Aspartate Amino Transf (AST/SGOT) 45 U/L Alanine Aminotransferase (ALT/SGPT) 43 U/L Total Bilirubin 1.9 MG/DL Sodium Level 144 MEQ/L Chloride Level 108 MEQ/L Carbon Dioxide Level 29.9 MEQ/L Anion Gap 6 MEQ/L Estimat Glomerular Filtration Rate 70 ML/MIN Thyroid Stimulating Hormone 3rd Gen 2.470 uIU/ML Imaging Last 24 hours Impressions Chest X-Ray 06/07/17 0000 Signed Impressions: Service Date/Time: Wednesday, June 07, 2017 06:55 - CONCLUSION: 1. Bilateral chest tubes with a persistent mild left pneumothorax. 2. Diffuse consolidation seen throughout both lungs likely representing diffuse processes such as edema , diffuse infection or ARDS. 3. Tubes and lines in good position. 4. Subcutaneous emphysema. Alvin Ortiz MD Assessment and Plan Problem List: (1) Shock, postoperative ICD Codes: T81.10XA - Postprocedural shock unspecified, initial encounter Status: Resolved Plan: Moving extremities, pupils reactive. Overall neuro status still unknown. Sedation off. CPAP trial. Recommendations: Avoid electrolytes imbalance Restart digoxin and Lopressor Reposition chest tubes Continue weaning Flolan Case discussed with Dr. Esquivel (2) Pulmonary arterial thrombosis ICD Codes: I26.99 - Other pulmonary embolism without acute cor pulmonale Status: Acute (3) CAD (coronary artery disease) ICD Codes: I25.10 - Atherosclerotic heart disease of [place] coronary artery without angina pectoris (4) Aortic stenosis ICD Codes: I35.0 - Nonrheumatic aortic (valve) stenosis Brad Page MD Jun 07, 2017 09:36
[2017-06-07] MEDS: LEVOTHYROXINE SODIUM 50 MCG TAB PO SCH (10:10)
[2017-06-07] MEDS: POTASSIUM CHLOR 40 MEQ PREMIX 100 ML IV PRN (10:26)
[2017-06-07] MEDS: CHLORHEXIDINE 0.12% (ORAL KIT) 15 ML CUP MT SCH ×2 (10:26→21:14)
[2017-06-07] MEDS ORDERED: EPOPROSTENOL NEB SOLUTION 10 NG/KG/MIN 100 ML NEB SCH ×2 (13:00)
[2017-06-07] MEDS ORDERED: hydrALAZINE HCL 25 MG TAB PO SCH (14:00)
[2017-06-07] MEDS: CLEVIDIPINE INJ 50 ML IV PRN ×2 (15:28→21:15)
[2017-06-07] MEDS: POTASSIUM PHOSPHATE INJ 30 MMOL in SODIUM CHLOR 0.9% 250 ML INJ 250 ML IV PRN (17:00)
--- NOTE | 2017-06-07 17:09 | RADRPT ---
EXAM DATE/TIME: 06/07/2017 17:01 [facility] COMPARISON: CHEST SINGLE AP, June 07, 2017, 6:55. INDICATIONS : Altered mental status. RADIATION DOSE: 41.90 CTDIvol (mGy) MEDICAL HISTORY : Hypertension. Carcinoma, colon. Cardiovascular disease SURGICAL HISTORY : Heart carth. ENCOUNTER: Initial ACUITY: 1 day PAIN SCALE: Non-responsive LOCATION: cranial TECHNIQUE: Multiple contiguous axial images were obtained of the head. Using automated exposure control and adj ustment of the mA and/or kV according to patient size, radiation dose was kept as low as reasonably a chievable to obtain optimal diagnostic quality images. DICOM format image data is available electro nically for review and comparison. FINDINGS: CEREBRUM: Atrophy. The ventricles are normal for age. No evidence of midline shift, mass lesion, hemorrhage or acute infarction. No extra-axial fluid collections are seen. POSTERIOR FOSSA: The cerebellum and brainstem are intact. The 4th ventricle is midline. The cerebellopontine angle i s unremarkable. EXTRACRANIAL: The visualized portion of the orbits is intact. Extensive subcutaneous air is seen tracking up from t he chest. SKULL: The calvaria is intact. No evidence of skull fracture. CONCLUSION: 1. No acute intracranial abnormality. 2. Extensive subcutaneous air tracking up from the chest. Luc Cain Jr., MD on June 07, 2017 at 17:07 Board Certified Radiologist. This report was verified electronically.
--- NOTE | 2017-06-07 17:32 | RADRPT ---
EXAM DATE/TIME: 06/07/2017 17:01 [facility] COMPARISON: CT BRAIN W/O CONTRAST, June 07, 2017, 17:01. INDICATIONS : Patient not moving upper extremities. RADIATION DOSE: 12.96 CTDIvol (mGy) MEDICAL HISTORY : Cardiovascular disease. Carcinoma, colon. Hypertension. SURGICAL HISTORY : Heart cath. ENCOUNTER: Initial ACUITY: 1 day PAIN SCALE: Non-responsive LOCATION: Bilateral neck TECHNIQUE: Volumetric scanning of the cervical spine was performed. Multiplanar reconstructions in the sagittal, coronal and oblique axial planes were performed. Using automated exposure control and adjustment o f the mA and/or kV according to patient size, radiation dose was kept as low as reasonably achievable to obtain optimal diagnostic quality images. DICOM format image data is available electronically f or review and comparison. FINDINGS: VERTEBRAE: Normal vertebral body height. ALIGNMENT: There is a curvature of the patient's cervical spine with concavity towards the right felt to be posi tional in nature. No subluxation observed. Exaggeration of lordosis. Extensive subcutaneous emphysema seen tracking up from the chest. There is a tiny left apical pneumot horax. The paraspinal soft tissues are obscured by the endotracheal tube and nasogastric tube. C2-C3: A mild central bulge. No central canal stenosis. Neural foramina are patent. C3-C4: The bony spinal canal is normal in size. No evidence of disc bulge or herniation. The neural forami na are bilaterally patent. C4-C5: There is a minimal broad-based disc osteophyte complex. No central canal stenosis. Bony uncovertebral hypertrophy generates moderate bilateral neural foraminal narrowing. C5-C6: There is a minimal broad-based disc osteophyte complex. No central canal stenosis. Bony uncovertebral hypertrophy generates moderate bilateral neural foraminal narrowing. C6-C7: There is a minimal broad-based disc osteophyte complex. No central canal stenosis. Bony uncovertebral hypertrophy generates moderate bilateral neural foraminal narrowing. C7-T1: The bony spinal canal is normal in size. No evidence of disc bulge or herniation. The neural forami na are bilaterally patent. CONCLUSION: 1. Extensive subcutaneous emphysema. 2. Tiny left apical pneumothorax. 3. Diffuse mild degenerative changes without central canal stenosis. Multilevel neural foraminal narr owing. 4. Prevertebral soft tissues obscured by an endotracheal tube and nasogastric tube. Luc Cain Jr., MD on June 07, 2017 at 17:23 Board Certified Radiologist. This report was verified electronically.
--- NOTE | 2017-06-07 19:30 | RADRPT ---
EXAM DATE/TIME: 06/07/2017 17:57 [facility] COMPARISON: No previous studies available for comparison. INDICATIONS : Bilateral leg edema. MEDICAL HISTORY : Gastroesophageal reflux disease. Hypercholesterolemia. Hypertension. Hypothyroidism. Atrial fibrilla tion. Aortic stenosis. Congestive heart failure. Carcinoma, colon. Chemotherapy. SURGICAL HISTORY : Tonsillectomy.Colon resection. Pacemaker. Ventral hernia repair. Repair of LFA. ENCOUNTER: Initial ACUITY: 1 day PAIN SCORE: Non-responsive LOCATION: Bilateral legs. TECHNIQUE: Venous ultrasound of the left and right leg was performed from the inguinal ligament to the proximal calf. Real-time, color Doppler and spectral tracing, compression and augmentation techniques were us ed. FINDINGS: RIGHT LEG: Positive for nonocclusive deep venous thrombosis of the right common femoral vein. No flow identified in the right posterior tibial vein. Right femoral and popliteal and peroneal veins are patent. LEFT LEG: There is nonocclusive thrombus in the left greater saphenous vein and popliteal vein. Left femoral ve in, peroneal vein and common femoral vein are patent. CONCLUSION: 1. Positive bilateral lower extremity deep venous thrombosis, nonocclusive as above. Jamie Corrales MD on June 07, 2017 at 19:27 Board Certified Radiologist. This report was verified electronically.
--- NOTE | 2017-06-07 19:32 | RADRPT ---
EXAM DATE/TIME: 06/07/2017 18:21 [facility] COMPARISON: No previous studies available for comparison. INDICATIONS : Bilateral arm edema. MEDICAL HISTORY : Hypercholesterolemia. Hypertension. Gastroesophageal reflux disease. Hypothyroidism. Atrial fibrilla tion. Aortic stenosis. Congestive heart failure. Hernia, hiatal. Chemotherapy. Carcinoma, colon. SURGICAL HISTORY : Pacemaker. Colon resection.Repair of LFA. ENCOUNTER: Initial ACUITY: 1 day PAIN SCORE: Non-responsive LOCATION: Bilateral arms. FINDINGS: Examination is limited by technical and patient factors. The subclavian and cephalic veins were not w ell visualized. The left internal jugular vein not well visualized from IV line. The veins that are v isualized demonstrate no deep venous thrombosis. CONCLUSION: 1. Limited exam but no deep venous thrombosis is identified bilaterally. Jamie Corrales MD on June 07, 2017 at 19:29 Board Certified Radiologist. This report was verified electronically.
[2017-06-07] MEDS ORDERED: HEPARIN SODIUM - IV 10,000 UNITS/10 ML VIAL IV PUSH PRN ×2 (22:00)
[2017-06-07] MEDS ORDERED: PILL SPLITTER OTHER PRN (22:15)
[2017-06-07] MEDS: HEPARIN 25,000 UNITS-D5W 250 ML - PREMIX IV SCH (22:35)
[2017-06-08] VITALS (16 sets, daily range): BP systolic 109–190; BP diastolic 57–76; PULSE 74–98; RESP 18–35; TEMP 97.6–98.9; O2SAT 90–99
[2017-06-08] MEDS: PIPERACIL-TAZO 3.375 GM PREMIX 50 ML IV SCH ×4 (02:16→18:09)
[2017-06-08] MEDS: VANCOMYCIN INJ 1,250 MG in SODIUM CHLOR 0.9% 250 ML INJ 250 ML IV SCH ×2 (02:30→21:51)
[2017-06-08] MEDS: RESP: ALBUTEROL 2.5 MG/IPRATROPIUM 0.5 MG NEB (SCH) NEB ×4 (03:56→21:40)
[2017-06-08] MEDS: INSULIN ASPART SUPPLEMENTAL SCALE SQ SCH ×5 (04:00→20:00)
[2017-06-08 05:03] LABS: AUTOMATED NEUTROPHIL # 20.5 TH/MM3 (1.8-7.7); BASOPHIL # 0.1 TH/MM3 (0-0.2); BASOPHIL % 0.3 % (0.0-2.0); EOSINOPHIL # 0.1 TH/MM3 (0-0.4); EOSINOPHIL % 0.6 % (0.0-4.0); HEMATOCRIT 36.7 % (35.0-46.0); LYMPH % 4.4 % (9.0-44.0); MEAN CELL VOLUME 85.7 FL (80.0-100.0); MEAN CORPUSCULAR HEMOGLOBIN 28.6 PG (27.0-34.0); MEAN CORPUSCULAR HGB CONC 33.4 % (32.0-36.0); MONO % 6.2 % (0.0-8.0); NEUT % 88.5 % (16.0-70.0); PLATELET COUNT 166 TH/MM3 (150-450); RED BLOOD COUNT 4.29 MIL/MM3 (4.00-5.30); RED CELL DISTRIBUTION WIDTH 16.5 % (11.6-17.2); WHITE BLOOD COUNT 23.1 TH/MM3 (4.0-11.0)
[2017-06-08 05:04] LABS: HEMO FLAGS AUTO DIFF
[2017-06-08 05:16] LABS: APTT (PATIENT) 55.1 SEC (24.3-30.1)
[2017-06-08 05:22] LABS: ALT (GPT) 44 U/L (10-53); ANION GAP 7 MEQ/L (5-15); AST (GOT) 36 U/L (15-37); BICARBONATE 29.1 MEQ/L (21.0-32.0); BLOOD UREA NITROGEN 21 MG/DL (7-18); CHLORIDE 104 MEQ/L (98-107); GLOMERULAR FILTRATION RATE 92 ML/MIN (>89); POTASSIUM 3.2 MEQ/L (3.5-5.1); SODIUM (NA) 140 MEQ/L (136-145)
[2017-06-08 05:24] LABS: ALKALINE PHOSPHATASE 127 U/L (45-117); TOTAL BILIRUBIN ADULT 2.1 MG/DL (0.2-1.0)
[2017-06-08] MEDS: FREE WATER OG-TUBE SCH ×4 (05:41→18:00)
[2017-06-08] MEDS: METOPROLOL TARTRATE 25 MG TAB PO SCH ×3 (05:47→21:52)
[2017-06-08] MEDS: DEXMEDETOMIDINE INJ 200 MCG in SODIUM CHLORIDE 0.9% INJ 50 ML IV PRN (05:47)
[2017-06-08] MEDS: LEVOTHYROXINE SODIUM 50 MCG TAB PO SCH (05:47)
[2017-06-08] MEDS: POTASSIUM CHLOR 40 MEQ PREMIX 100 ML IV PRN ×2 (05:48→07:53)
--- NOTE | 2017-06-08 05:56 | RADRPT ---
EXAM DATE/TIME: 06/08/2017 05:10 [facility] COMPARISON: CHEST SINGLE AP, June 07, 2017, 6:55. INDICATIONS : Shortness of breath, possible pneumothorax. MEDICAL HISTORY : Congestive heart failure. Hypertension Carcinoma, colon. Aortic stenosis SURGICAL HISTORY : Splenectomy. Pacemaker. ENCOUNTER: Subsequent ACUITY: 1 week PAIN SCORE: Non-responsive. LOCATION: Bilateral chest FINDINGS: A single AP semierect view of the chest was obtained and again demonstrates the endotracheal tube in place with the tip approximately 3 cm above the mikel. The nasogastric tube and left internal jugula r central venous line remain in place. The left subclavian AV sequential transvenous pacer is unchang ed. There is a small bore right-sided chest tube in place with the pigtail projected over the lung ap ex. There is no visualized pneumothorax. Subcutaneous emphysema is noted over the right lateral chest wall. There is hazy opacity again noted in the right lung and more consolidative opacity at the left lung base with obscuration of the left hemidiaphragm. There is a larger bore left-sided chest tube. The heart size appears mildly prominent and calcification is noted in the mitral valve annular region . CONCLUSION: 1. No significant change. Bilateral chest tubes remain in place with no visualized pneumothorax. 2. Abnormal opacity remains in both lungs greatest at the left lung base. Pancho Crawford MD on June 08, 2017 at 5:53 Board Certified Radiologist. This report was verified electronically.
[2017-06-08 06:13] LABS: BANDS 1 % (0-6); EOSINOPHILS 1 % (0-4); MYELOCYTES 1 % (0-0); NEUTROPHIL # MANUAL DIFF 21.7 TH/MM3 (1.8-7.7); OVALOCYTES 1+ (NORMAL); POLYS (SEG NEUTROPHILS) 92 % (16-70); WBC DIFF SAMPLE 100
[2017-06-08 06:14] LABS: PLATELET ESTIMATE SMEAR NORMAL (NORMAL); PLATELET MORPHOLOGY NORMAL (NORMAL); SCAN/DIFF FINAL DIFF MANUAL
[2017-06-08] MEDS: CLEVIDIPINE INJ 50 ML IV PRN ×2 (07:49→21:53)
[2017-06-08] MEDS: CHLORHEXIDINE 0.12% (ORAL KIT) 15 ML CUP MT SCH ×2 (08:00→20:00)
[2017-06-08] MEDS ORDERED: FUROSEMIDE 20 MG/2 ML VIAL IV PUSH ONE (08:00)
[2017-06-08] MEDS: PANTOPRAZOLE SODIUM 40 MG VIAL IV PUSH SCH ×2 (08:25→21:51)
[2017-06-08 08:55] LABS: BLOOD GAS BASE EXCESS 3.5 mmol/L (-2-2); BLOOD GAS CARBOXYHEMOGLOBIN 1.5 % (0-4); BLOOD GAS HCO3 27 mmol/L (22-26); BLOOD GAS METHEMOGLOBIN 1.1 % (0-2); BLOOD GAS O2 HGB SATURATION 86 % (90-100); BLOOD GAS OXYGEN CONTENT 18.2 Vol % (12.0-20.0); BLOOD GAS PCO2 39 mmHg (38-42); BLOOD GAS PO2 54 mmHg (61-120); BLOOD GAS TOTAL HGB 15.1 G/DL (12.0-16.0); TEMP CORR TO 98.6
[2017-06-08 08:57] LABS: CRITICAL VALUE YES; FIO2 65 %; OXYGEN DEVICE VENTILATOR; VENT SETTINGS PCAC 16/IP12/PEEP7
[2017-06-08 08:58] LABS: DRAW SITE ART LINE; STAT NO
[2017-06-08] MEDS: FUROSEMIDE 20 MG/2 ML VIAL IV PUSH SCH (09:00)
[2017-06-08] MEDS: DIGOXIN 0.125 MG TAB PO SCH (09:00)
[2017-06-08] MEDS: ELTROMBOPAG 50 MG TAB PO SCH (09:18)
[2017-06-08] MEDS: DOCUSATE SODIUM 100 MG/10 ML UDC PO SCH ×2 (09:18→21:51)
[2017-06-08] MEDS: LOSARTAN 50 MG TAB PO SCH (09:18)
[2017-06-08] MEDS: POTASSIUM CHLORIDE 25 MEQ EFFERVESCENT TAB PO SCH ×2 (09:18→21:52)
[2017-06-08] MEDS: DILTIAZEM-CD 120 MG CAP ER PO SCH (09:18)
--- NOTE | 2017-06-08 10:58 | HHI.CCPN ---
Subjective Remarks/Hospital Course I was emergently called to lab analyst by Dr. Corrales. Ms. Mahoney who is 89 yo female with history of severe aortic stenosis was undergoing left and right heart catheter for TAVR evaluation. With right heart catheterization patient developed acute massive hemoptysis with shock secondary to acute rupture of pulmonary artery. Patient was intubated by Dr. Potter and ETT was advance to Right lung for selective right lung ventilation due to massive hemorrhage from Left lung. On my arrival to lab analyst, patient was rapidly dropping blood pressure. Dopamine was already started. I ordered Shantanu-Synephrine, at 300 mcg/ m in an attempt to increase MAP and also increase the pulmonary vasoconstriction. Levophed was also added to maintain blood pressure and rapidly titrated up. Emergency release blood initially 3 units was ordered stat along with 2 units of FFP, 1 unit of platelet. I also emergently contacted Dr. Vásquez was in the office. (Dr. Bedoya the on-call CT surgeon was operating). While on Levophed Shantanu-Synephrine and dopamine, patient developed coarse V. fib/V. tach, received brief CPR, and was DC cardioverted 1 with return of spontaneous circulation and sinus rhythm. I discussed with Dr. Corrales and anesthesiologist, I also contacted Dr. Josue from invasive radiology.Dr. Josue immediately arrived to the lab analyst. Dr. Abdelrahman francis performed PARVIN which showed vigorous LV contraction but cavity was empty. Received Continuous massive fluid resuscitation with multiple crystalloid boluses, bicarbonate and calcium. Blood arrived and initially 3 units of PRBC, 2 units of 1 unit of platelets was given with calcium total 3 g given after blood transfusion. Because of persistent hypotension, additional 2 units of PRBC was given. While I resuscitated the patient, Dr. Corrales and Dr. Jennings performed right heart cath, identified bleeding of a small branch in the left pulmonary artery. They put put in 6 coils in the lower left lower pulmonary artery followed with Gelfoam closing the perforation. 06/04: Emergency chest 2 yesterday for right pneumothorax with hypotension and hypoxia. Remains intubated sedated and on Levophed. FiO2 remains at 100%, Sat improving to 94-95 %. UO adequate overnight. 2-D echo on my review normal LV and RV function, no PFO on bubble study 06/05: Patient is in atrial fibrillation currently on Cardene infusion for blood pressure control. Chest x-ray shows percutaneous emphysema and small apical pneumothorax. Remains on 80% FiO2. I discussed with interventional radiology. We will attempt CT-guided repositioning of the pigtail catheter and possibly upgrading to a larger tube. Urine output adequate 750 mL in 24 hours 06/06: Currently remains in A. fib with rate controlled, hypertensive on Cardizem drip. Oxygen saturation has improved FiO2 now to 40% with saturation 97%. Urine output excellent with Lasix 4.5 L in 24 hours. Chest x-ray today shows 2.5 cm bilateral apical pneumothorax, also left side has 1.2 cm lateral pneumothorax 06/07: Intubated, on low dose propofol for ventilator synchrony. FiO2 40% oxygen saturation 99%. Chest x-ray and labs pending urine output 2.7 L. 3 chest tubes with no air leak. If neuro exam not improving off sedation will check CT of the head. Currently on propofol will mash filter cloth changer to Precedex to initiate weaning trials. On weaning doses of inhaled Flolan currently on 30, 000 ng 06/08: Remains intubated, mild sedation with Precedex. Overnight FiO2 increased to 65% for hypoxia. CXR left more than right consolidation of lower lobes. Sputum positive for MRSA on vancomycin. Bilateral lower extremity US studies yesterday showed DVT, initiated on IV heparin. Currently therapeutic on heparin. No evidence of pulmonary hemorrhage. Neuro exam is improving weekly follows commands all 4 extremities Objective Vital Signs Date Time Temp Pulse Resp B/P (MAP) Pulse Ox O2 Delivery O2 Flow Rate FiO2 06/08/17 09:14 97 80 06/08/17 08:06 Mechanical Ventilator 06/08/17 08:04 74 06/08/17 08:02 98.2 21 109/63 (78) Intake and Output 06/08/17 06/08/17 06/09/17 08:00 16:00 00:00 Intake Total 1574.5 ml Output Total 1392 ml Balance 182.5 ml Result Diagram: 06/08/17 0430 06/08/17 0430 Other Results Microbiology Date/Time Source Procedure Growth Status 06/05/17 13:10 Bronchial Washings Right Lower Lobe Gram Stain - Final Complete 06/05/17 13:10 Bronchial Washings Right Lower Lobe Bronchial Culture - Final NO GROWTH IN 48 HOURS. Complete Laboratory Tests Test 06/08/17 08:32 Blood Gas Puncture Site ART LINE Blood Gas Patient Temperature 98.6 Blood Gas HCO3 27 mmol/L (22-26) Blood Gas Base Excess 3.5 mmol/L (-2-2) Blood Gas Oxygen Saturation 86 % (90-100) Arterial Blood pH 7.46 (7.380-7.420) Arterial Blood Partial Pressure CO2 39 mmHg (38-42) Arterial Blood Partial Pressure O2 54 mmHg (61-120) Arterial Blood Oxygen Content 18.2 Vol % (12.0-20.0) Arterial Blood Carboxyhemoglobin 1.5 % (0-4) Arterial Blood Methemoglobin 1.1 % (0-2) Blood Gas Hemoglobin 15.1 G/DL (12.0-16.0) Oxygen Delivery Device VENTILATOR Blood Gas Ventilator Setting PCAC 16/IP12/PEEP7 Blood Gas Inspired Oxygen 65 % Objective Remarks GENERAL: Intubated sedated with Precedex. Moving extremities SKIN: Skin /dry. ENT: Orotracheally intubated. No significant secretion in the ETT. NECK: Trachea midline. CARDIOVASCULAR: Remains in atrial fibrillation, rate controlled. No murmurs. Intermittently paced RESPIRATORY: Bilateral coarse rhonchi and crackles. Diminished air entry at bases. Subcutaneous emphysema right chest significantly improved. Bilateral large bore chest tubes with no air leak, right anterior chest tube with no air leak GASTROINTESTINAL: Abdomen distended, having BM MUSCULOSKELETAL: LIJ central line in place NEUROLOGICAL: Patient is intubated, sedated with Precedex. Partially opens eyes to her name. Squeezes with both hands on command. Wiggles with bilateral lower extremity Urinary Catheter: Yes Assessment to: Continue Vascular Central Line Catheter: Yes Assessment to: Continue A/P Assessment and Plan NEURO: Encephalopathy, metabolic - Precedex to facilitate neuro exam - Daily sedation vacation - Continue to hold home sertraline -CT of the head and C-spine negative for acute injury RESP: Left lower pulmonary artery rupture with massive hemorrhage Massive hemoptysis Acute hypoxemic respiratory failure MRSA pneumonia Large Left hemothorax s/p IR chest tube placement Bilateral apical pneumothorax Residual L pneumothorax after hemothorax evacuation Bilateral lower extremity DVT - s/p coil and gelfoam closure of Left lower pulmonary artery (peripheral small branch) by Rhoda Corrales and Michaela (see resuscitation note on 06/03/17) - PC/AC mechanical ventilation PEEP of 8, Fio2 down 40% overnight increased to 65%. Chest x-ray shows left lower lobe pneumonia - Chest x-ray confirms pneumonia vs lung infarct. Sputum with MRSA. on vancomycin - s/p chest tube x2 for right pneumothorax on 06/03. New apical chest tube placed 06/06/17 - IR, placed 24 F Left chest tube 06/05 with drainage of 2 L hemothorax, residual pneumothorax present, now resolved - CXR 06/07, resolution of right improving subcutaneous emphysema. Small residual left apical pneumo - s/p Bronchoscopy with removal of blood predominantly from L lung, s/p repeat bronch 06/06 - DuoNeb q 6hours and PRN - Flolan weaned off - Venous duplex -bilateral lower extremity DVT. IV heparin started 06/07/17 therapeutic CV/Heme: Hemorrhagic shock-resolved Bilateral lower extremity DVT Anemia requiring transfusion Severe Atrial fibrillation with RVR Possible history of ITP - IV heparin started yesterday 06/07/17 for bilateral lower extremity DVT and atrial fibrillation, watch closely for bloody chest tube output and hemoptysis - Continue home Cardizem CD 120 mg daily. - Cleviprex, when necessary hydralazine (well beta blocked) to keep systolic blood pressure less than 150 - Continue IV Lasix, 20 mg daily. Home metoprolol at 25 mg by mouth every 8 hours. Home dose of digoxin - On Multaq at home. Defer to Dr. Corrales - Received 6 units of emergency release blood, 2 units of FFP and one of platelets 06/03/17. Multiple crystalloid boluses were given, PARVIN normal LV contractility, volume depletion - 2D Echo 06/04 RV LV function look normal, no PFO - Resumed Promacta for ITP GI: - OGT tube, IV Protonix. Tube feeds with Jevity. Having regular BMs : - Monitor renal function closely. Payne catheter. Urine output adequate - IV Lasix ID: MRSA pneumonia - Empiric Zosyn and single dose of vancomycin given 06/07, Vanc pharmacy to dose - Avilez culture due to low-grade fever, pending - BAL culture MRSA ENDO: Hypokalemia Hypomagnesemia - Replace electrolytes per protocol PROPH: - DC SCDs due to DVT. IV Protonix. IV heparin started 06/07 LINES: - Left femoral cordis and central line Dcd 06/04. New LIJ central line placed CC time 45 min excluding procedure Tanika Esquivel MD Jun 08, 2017 10:58
[2017-06-08 11:25] LABS: APTT (PATIENT) 54.3 SEC (24.3-30.1)
--- NOTE | 2017-06-08 12:07 | PD.CARD.PN ---
Subjective Subjective Remarks overnight events noted Sedated, Intubated Opening eyes and moving extremities, following commands Oxygenation improving Off Flolan Objective Medications Current Medications Medications (Trade) Dose Ordered Sig/Padmini Route Start Time Stop Time Status Last Admin (Peridex 0.12% Liq) 15 ml BID@08,20 MT 06/03/17 20:00 06/08/17 08:00 (Duoneb Neb) 1 ampule Q2HR NEB PRN NEB 06/03/17 19:00 (Protonix Inj) 40 mg Q12H IV PUSH 06/03/17 20:00 06/08/17 08:25 Potassium Chloride 100 ml @ 50 mls/hr Q2H PRN IV 06/03/17 19:15 06/08/17 07:53 Potassium Chloride 100 ml @ 50 mls/hr Q2H PRN IV 06/03/17 19:15 (K-Lyte Cl Eff) 50 meq UNSCH PRN PO 06/03/17 19:15 Potassium Chloride 100 ml @ 25 mls/hr UNSCH PRN IV 06/03/17 19:15 06/06/17 18:46 Potassium Chloride 100 ml @ 50 mls/hr Q2H PRN IV 06/03/17 19:15 Magnesium Sulfate 4 gm/Sodium Chloride 100 ml @ 50 mls/hr UNSCH PRN IV 06/03/17 19:15 (Mag-Ox) 800 mg UNSCH PRN PO 06/03/17 19:15 Magnesium Sulfate 2 gm/Sodium Chloride 100 ml @ 50 mls/hr UNSCH PRN IV 06/03/17 19:15 06/04/17 16:45 (K-Phos) 2,000 mg Q4H PRN PO 06/03/17 19:15 Sodium Phosphate 30 mmol/Sodium Chloride 250 ml @ 42 mls/hr UNSCH PRN IV 06/03/17 19:15 (K-Phos) 2,000 mg UNSCH PRN PO/TUBE 06/03/17 19:15 Potassium Phosphate 30 mmol/ Sodium Chloride 260 ml @ 42 mls/hr UNSCH PRN IV 06/03/17 19:15 06/07/17 17:00 Piperacillin Sod/ Tazobactam Sod 50 ml @ 100 mls/hr Q6H IV 06/04/17 01:00 06/08/17 06:48 (NovoLOG SUPPLEMENTAL SCALE) 1 Q4HR SQ 06/04/17 12:00 06/04/17 13:40 (D50w (Vial) Inj) 50 ml UNSCH PRN IV PUSH 06/04/17 12:15 (Glucagon Inj) 1 mg UNSCH PRN OTHER 06/04/17 12:15 (Lopressor Inj) 1.25 mg Q6H PRN IV PUSH 06/04/17 19:15 06/06/17 20:29 Diltiazem HCl 125 mg/Sodium Chloride 125 ml @ 5 mls/hr TITRATE PRN IV 06/05/17 08:00 06/07/17 00:55 (Free Water) 250 ml Q6HR OG-TUBE 06/05/17 14:00 06/08/17 05:41 (Colace Liq) 100 mg Q12HR PO 06/05/17 14:00 06/08/17 09:18 (K-Lyte Cl Eff) 25 meq Q12HR PO 06/05/17 14:00 06/08/17 09:18 (Lanoxin) 0.125 mg DAILY PO 06/06/17 09:00 06/08/17 09:00 (Pill Splitter) 1 ea UNSCH PRN OTHER 06/06/17 09:00 Dexmedetomidine HCl 200 mcg/ Sodium Chloride 52 ml @ 3.27 mls/hr TITRATE PRN IV 06/07/17 07:00 06/08/17 05:47 (Lasix Inj) 20 mg DAILY IV PUSH 06/07/17 09:00 06/07/17 08:29 (Lopressor) 25 mg Q8HR PO 06/07/17 14:00 06/08/17 05:47 Clevidipine 50 ml @ 2 mls/hr TITRATE PRN IV 06/07/17 07:00 06/08/17 07:49 (Cardizem Cd) 120 mg DAILY PO 06/07/17 09:00 06/08/17 09:18 (Cozaar) 50 mg DAILY PO 06/07/17 09:00 06/08/17 09:18 Pharmacy Profile Note 0 ml @ 0 mls/hr UNSCH OTHER 06/07/17 07:15 (Apresoline Inj) 20 mg Q4H PRN IV PUSH 06/07/17 08:00 06/07/17 09:09 (Synthroid) 50 mcg DAILY@0600 PO 06/07/17 08:00 06/08/17 05:47 (Duoneb Neb) 1 ampule Q6HR NEB NEB 06/07/17 16:00 06/08/17 09:14 Vancomycin HCl 1250 mg/Sodium Chloride 262.5 ml @ 250 mls/hr Q18H IV 06/08/17 02:00 06/08/17 02:30 Miscellaneous Information SPECIFIC LAB TO BE CLEMENT... ONCE ONCE .XX 06/09/17 13:45 06/09/17 13:46 (Promacta) 25 mg DAILY@1000 PO 06/08/17 10:00 06/08/17 09:18 Heparin Sodium/ Dextrose 250 ml @ 11 mls/hr TITRATE IV 06/07/17 22:00 06/07/17 22:35 (Heparin Inj) 5,000 units UNSCH PRN IV PUSH 06/07/17 22:00 (Heparin Inj) 2,500 units UNSCH PRN IV PUSH 06/07/17 22:00 (Pill Splitter) 1 ea UNSCH PRN OTHER 06/07/17 22:15 Vital Signs / I&O Vital Signs Date Time Temp Pulse Resp B/P (MAP) Pulse Ox O2 Delivery O2 Flow Rate FiO2 06/08/17 11:18 97.6 78 31 181/76 (111) 96 06/08/17 11:17 78 06/08/17 11:16 96 Mechanical Ventilator 70 06/08/17 09:14 97 80 06/08/17 08:12 65 06/08/17 08:06 91 Mechanical Ventilator 65 06/08/17 08:04 74 06/08/17 08:02 98.2 74 21 109/63 (78) 91 06/08/17 07:49 76 134/56 06/08/17 07:40 96 65 06/08/17 04:00 86 06/08/17 04:00 90 Mechanical Ventilator 65 06/08/17 04:00 65 06/08/17 04:00 97.9 86 35 187/58 (101) 90 06/08/17 03:59 95 50 06/08/17 00:24 93 50 06/08/17 00:00 78 06/08/17 00:00 50 06/08/17 00:00 92 Mechanical Ventilator 50 06/08/17 00:00 97.9 79 22 190/66 (107) 92 06/07/17 22:33 95 50 06/07/17 21:15 87 159/58 06/07/17 20:35 99 50 06/07/17 20:00 86 06/07/17 20:00 99 Mechanical Ventilator 50 06/07/17 20:00 50 06/07/17 20:00 06/07/17 20:00 97.8 87 16 145/73 (97) 99 159/58 (91) 06/07/17 16:10 97 40 06/07/17 16:00 79 147/72 (97) 157/58 (91) 06/07/17 16:00 40 06/07/17 15:28 80 192/72 06/07/17 15:00 79 06/07/17 15:00 98 Mechanical Ventilator 40 06/07/17 15:00 98.6 80 23 147/72 (97) 98 164/60 (94) 06/07/17 14:06 97 40 06/07/17 12:39 97 40 I/O 06/07/17 06/07/17 06/07/17 06/08/17 06/08/17 06/08/17 07:00 15:00 23:00 07:00 15:00 23:00 Intake Total 1385 ml 277 ml 972 ml 1424.5 ml 150 ml Output Total 2717 ml 3223 ml 1392 ml Balance -1332 ml 277 ml -2251 ml 32.5 ml 150 ml Intake Oral 0 ml 0 ml IV Total 227 ml 277 ml 507 ml 613.5 ml 150 ml Tube Feeding 368 ml 215 ml 211 ml Tube Irrigant 70 ml Other 720 ml 250 ml 600 ml Output Urine Total 2595 ml 3095 ml 1270 ml Gastric Drainage Total 0 ml Chest Tube Drainage Total 122 ml 128 ml 122 ml # Bowel Movements 0 1 Physical Exam GENERAL: Sedated, intubated, pupils reactive SKIN: Warm and dry. HEAD: Normocephalic. EYES: No scleral icterus. No injection or drainage. NECK: Supple, trachea midline. No JVD or lymphadenopathy. CARDIOVASCULAR: Irr Irr 2/6SEM no gallops, or rubs. RESPIRATORY: Vented. GASTROINTESTINAL: Abdomen soft, non-tender, nondistended. EXTREMITIES: No cyanosis, or +edema. Laboratory Laboratory Tests Test 06/08/17 04:30 06/08/17 08:32 06/08/17 10:38 White Blood Count 23.1 TH/MM3 Red Blood Count 4.29 MIL/MM3 Hemoglobin 12.3 GM/DL Hematocrit 36.7 % Mean Corpuscular Volume 85.7 FL Mean Corpuscular Hemoglobin 28.6 PG Mean Corpuscular Hemoglobin Concent 33.4 % Red Cell Distribution Width 16.5 % Platelet Count 166 TH/MM3 Mean Platelet Volume 8.3 FL Neutrophils (%) (Auto) 88.5 % Lymphocytes (%) (Auto) 4.4 % Monocytes (%) (Auto) 6.2 % Eosinophils (%) (Auto) 0.6 % Basophils (%) (Auto) 0.3 % Neutrophils # (Auto) 20.5 TH/MM3 Lymphocytes # (Auto) 1.0 TH/MM3 Monocytes # (Auto) 1.4 TH/MM3 Eosinophils # (Auto) 0.1 TH/MM3 Basophils # (Auto) 0.1 TH/MM3 CBC Comment AUTO DIFF Differential Total Cells Counted 100 Neutrophils % (Manual) 92 % Band Neutrophils % 1 % Lymphocytes % 1 % Monocytes % 4 % Eosinophils % 1 % Neutrophils # (Manual) 21.7 TH/MM3 Myelocytes 1 % Differential Comment FINAL DIFF MANUAL Platelet Estimate NORMAL Platelet Morphology Comment NORMAL Ovalocytes 1+ Activated Partial Thromboplast Time 55.1 SEC 54.3 SEC Blood Urea Nitrogen 21 MG/DL Creatinine 0.61 MG/DL Random Glucose 131 MG/DL Total Protein 6.0 GM/DL Albumin 2.1 GM/DL Calcium Level 8.2 MG/DL Magnesium Level 2.0 MG/DL Alkaline Phosphatase 127 U/L Aspartate Amino Transf (AST/SGOT) 36 U/L Alanine Aminotransferase (ALT/SGPT) 44 U/L Total Bilirubin 2.1 MG/DL Sodium Level 140 MEQ/L Potassium Level 3.2 MEQ/L Chloride Level 104 MEQ/L Carbon Dioxide Level 29.1 MEQ/L Anion Gap 7 MEQ/L Estimat Glomerular Filtration Rate 92 ML/MIN Blood Gas Puncture Site ART LINE Blood Gas Patient Temperature 98.6 Blood Gas HCO3 27 mmol/L Blood Gas Base Excess 3.5 mmol/L Blood Gas Oxygen Saturation 86 % Arterial Blood pH 7.46 Arterial Blood Partial Pressure CO2 39 mmHg Arterial Blood Partial Pressure O2 54 mmHg Arterial Blood Oxygen Content 18.2 Vol % Arterial Blood Carboxyhemoglobin 1.5 % Arterial Blood Methemoglobin 1.1 % Blood Gas Hemoglobin 15.1 G/DL Oxygen Delivery Device VENTILATOR Blood Gas Ventilator Setting PCAC 16/IP12/PEEP7 Blood Gas Inspired Oxygen 65 % Imaging Last 24 hours Impressions Chest X-Ray 06/08/17 0600 Signed Impressions: Service Date/Time: Thursday, June 08, 2017 05:10 - CONCLUSION: 1. No significant change. Bilateral chest tubes remain in place with no visualized pneumothorax. 2. Abnormal opacity remains in both lungs greatest at the left lung base. Pancho Crawford MD Assessment and Plan Problem List: (1) Shock, postoperative ICD Codes: T81.10XA - Postprocedural shock unspecified, initial encounter Status: Resolved Plan: Moving extremities, pupils reactive. Following commands. Neuro exam is improving. Sedation off. Flolan off PNA on Vanco DVT on Heparin drip Recommendations: Avoid electrolytes imbalance Cont Heparin drip Continue supportive care Case discuss with Dr. Esquivel (2) Pulmonary arterial thrombosis ICD Codes: I26.99 - Other pulmonary embolism without acute cor pulmonale Status: Acute (3) CAD (coronary artery disease) ICD Codes: I25.10 - Atherosclerotic heart disease of [place] coronary artery without angina pectoris (4) Aortic stenosis ICD Codes: I35.0 - Nonrheumatic aortic (valve) stenosis Brad Page MD Jun 08, 2017 12:07
[2017-06-08] MEDS ORDERED: MIDAZOLAM HCL 5 MG/ML VIAL (1 ML) ONE (12:54)
[2017-06-08] MEDS ORDERED: MIDAZOLAM HCL 2 MG/2 ML VIAL IV ONE (13:30)
--- NOTE | 2017-06-08 16:34 | MG ---
cc: HARRIETT SNOW MD Lab No: Date: Age: Sex: F Race: DATE OF : 1925. REFERRING PHYSICIAN: Dr. Esquivel. MEDICAL HISTORY: 1. Severe aortic stenosis. 2. Hypothyroidism. 3. Coronary artery disease. 4. Congestive heart failure. 5. Migraines. 6. Syncope. 7. Pacemaker. 8. Hypertension. 9. Atrial fibrillation. 10. Hypercholesterolemia. 11. Depression. 12. Colon cancer. 13. Left and right heart catheterization. Developed acute massive hemoptysis with shock secondary to acute rupture of pulmonary artery went into ventricular fibrillation tachycardia. Brief controlled ventricular rate. Cardioverted. MEDICATIONS: 1. Vancomycin. 2. Lopressor. 3. Synthroid. 4. Piperacillin. 5. Potassium chloride. DESCRIPTION OF THE RECORDING: EEG was done while the patient was sedated with Precedex at 4 mcg. There is generalized background slowing in the polymorphic theta and delta range. During the recording, there were intermittent triphasic waves. Hyperventilation was not done. Photic stimulation did not elicit a driving response. There were no electrographic seizures or epileptiform discharges noted. INTERPRETATION: This is an abnormal drowsy EEG. The generalized background slowing indicates a mild to moderate encephalopathy. Triphasic waves indicate a metabolic encephalopathy. There is no ictal activity or epileptiform discharges. Absence of electrographic seizures or epileptiform discharges does not rule out the diagnosis of epilepsy. Clinical correlation is recommended. Harriett Snow MD [facility] /4:02 PM /4:24 PM [facility]ITALVal[facility]
[2017-06-08] MEDS: HEPARIN 25,000 UNITS-D5W 250 ML - PREMIX IV SCH (21:56)
[2017-06-09] VITALS (13 sets, daily range): BP systolic 107–160; BP diastolic 48–75; PULSE 68–90; RESP 16–22; TEMP 97.9–98.7; O2SAT 90–98
[2017-06-09] MEDS: PIPERACIL-TAZO 3.375 GM PREMIX 50 ML IV SCH ×4 (01:00→17:53)
[2017-06-09] MEDS: RESP: ALBUTEROL 2.5 MG/IPRATROPIUM 0.5 MG NEB (SCH) NEB ×4 (03:45→20:17)
[2017-06-09] MEDS: DEXMEDETOMIDINE INJ 200 MCG in SODIUM CHLORIDE 0.9% INJ 50 ML IV PRN ×2 (05:02→15:57)
[2017-06-09 05:05] LABS: AUTOMATED NEUTROPHIL # 14.2 TH/MM3 (1.8-7.7); BASOPHIL % 0.2 % (0.0-2.0); EOSINOPHIL # 0.4 TH/MM3 (0-0.4); EOSINOPHIL % 2.4 % (0.0-4.0); HEMATOCRIT 34.8 % (35.0-46.0); LYMPH % 5.8 % (9.0-44.0); MEAN CELL VOLUME 85.7 FL (80.0-100.0); MEAN CORPUSCULAR HEMOGLOBIN 28.5 PG (27.0-34.0); MEAN CORPUSCULAR HGB CONC 33.2 % (32.0-36.0); MONO % 7.7 % (0.0-8.0); NEUT % 83.9 % (16.0-70.0); PLATELET COUNT 167 TH/MM3 (150-450); RED BLOOD COUNT 4.06 MIL/MM3 (4.00-5.30); RED CELL DISTRIBUTION WIDTH 16.2 % (11.6-17.2); WHITE BLOOD COUNT 16.9 TH/MM3 (4.0-11.0)
[2017-06-09 05:08] LABS: HEMO FLAGS AUTO DIFF
[2017-06-09 05:20] LABS: APTT (PATIENT) 53.3 SEC (24.3-30.1)
[2017-06-09 05:38] LABS: ANION GAP 7 MEQ/L (5-15); AST (GOT) 28 U/L (15-37); BICARBONATE 28.4 MEQ/L (21.0-32.0); BLOOD UREA NITROGEN 19 MG/DL (7-18); CHLORIDE 104 MEQ/L (98-107); GLOMERULAR FILTRATION RATE 100 ML/MIN (>89); POTASSIUM 3.5 MEQ/L (3.5-5.1); SODIUM (NA) 139 MEQ/L (136-145)
[2017-06-09 05:41] LABS: ALKALINE PHOSPHATASE 132 U/L (45-117); ALT (GPT) 36 U/L (10-53); TOTAL BILIRUBIN ADULT 1.6 MG/DL (0.2-1.0)
[2017-06-09] MEDS: FREE WATER OG-TUBE SCH ×3 (06:00→12:00)
[2017-06-09] MEDS: METOPROLOL TARTRATE 25 MG TAB PO SCH ×3 (06:00→22:19)
[2017-06-09] MEDS: LEVOTHYROXINE SODIUM 50 MCG TAB PO SCH (06:00)
--- NOTE | 2017-06-09 06:26 | RADRPT ---
EXAM DATE/TIME: 06/09/2017 05:13 [place] COMPARISON: CHEST SINGLE AP, June 08, 2017, 5:10. INDICATIONS : Shortness of breath, possible pulmonary disease. MEDICAL HISTORY : Congestive heart failure. Hypertension Carcinoma, colon. Aortic stenosis SURGICAL HISTORY : Splenectomy. Pacemaker. ENCOUNTER: Subsequent ACUITY: 1 week PAIN SCORE: Non-responsive. LOCATION: Bilateral chest FINDINGS: A single view of the chest demonstrates decreasing bilateral pulmonary opacities. Heart enlarged. Lef t-sided and right-sided chest tubes and mediastinal chest tube are stable position. No pneumothorax. Endotracheal tube, nasogastric tube and left-sided pacemaker stable position.. Osseous structures ar e intact. CONCLUSION: 1. Improving bilateral pulmonary opacities. 2. Cardiomegaly. 3. Support lines and tubes without pneumothorax. Devan Waldrop MD on June 09, 2017 at 6:23 Board Certified Radiologist. This report was verified electronically.
[2017-06-09 06:53] LABS: BANDS 5 % (0-6); NEUTROPHIL # MANUAL DIFF 15.4 TH/MM3 (1.8-7.7); POLYS (SEG NEUTROPHILS) 86 % (16-70); WBC DIFF SAMPLE 100
[2017-06-09 06:56] LABS: OVALOCYTES 1+ (NORMAL); PLATELET ESTIMATE SMEAR NORMAL (NORMAL); PLATELET MORPHOLOGY NORMAL (NORMAL)
[2017-06-09 06:57] LABS: SCAN/DIFF FINAL DIFF MANUAL
[2017-06-09] MEDS: CHLORHEXIDINE 0.12% (ORAL KIT) 15 ML CUP MT SCH ×2 (08:00→20:00)
[2017-06-09] MEDS: INSULIN ASPART SUPPLEMENTAL SCALE SQ SCH ×2 (08:00→20:00)
[2017-06-09] MEDS: CLEVIDIPINE INJ 50 ML IV PRN (08:02)
[2017-06-09] MEDS: POTASSIUM CHLORIDE 25 MEQ EFFERVESCENT TAB PO SCH ×2 (08:04→22:19)
[2017-06-09] MEDS: POTASSIUM CHLOR 40 MEQ PREMIX 100 ML IV PRN (08:04)
[2017-06-09] MEDS: DOCUSATE SODIUM 100 MG/10 ML UDC PO SCH ×2 (08:04→21:00)
[2017-06-09] MEDS: PANTOPRAZOLE SODIUM 40 MG VIAL IV PUSH SCH ×2 (08:05→22:18)
[2017-06-09] MEDS: LOSARTAN 50 MG TAB PO SCH (08:05)
[2017-06-09] MEDS: DILTIAZEM-CD 120 MG CAP ER PO SCH (08:05)
[2017-06-09] MEDS: DIGOXIN 0.125 MG TAB PO SCH (08:05)
[2017-06-09] MEDS: FUROSEMIDE 20 MG/2 ML VIAL IV PUSH SCH (08:05)
[2017-06-09] MEDS ORDERED: LOSARTAN 50 MG TAB PO ONE (09:45)
--- NOTE | 2017-06-09 09:48 | HHI.CCPN ---
Subjective Remarks/Hospital Course I was emergently called to environmental laboratory technician by Dr. Corrales. Ms. Mahoney who is 89 yo female with history of severe aortic stenosis was undergoing left and right heart catheter for TAVR evaluation. With right heart catheterization patient developed acute massive hemoptysis with shock secondary to acute rupture of pulmonary artery. Patient was intubated by Dr. Potter and ETT was advance to Right lung for selective right lung ventilation due to massive hemorrhage from Left lung. On my arrival to environmental laboratory technician, patient was rapidly dropping blood pressure. Dopamine was already started. I ordered Shantanu-Synephrine, at 300 mcg/ m in an attempt to increase MAP and also increase the pulmonary vasoconstriction. Levophed was also added to maintain blood pressure and rapidly titrated up. Emergency release blood initially 3 units was ordered stat along with 2 units of FFP, 1 unit of platelet. I also emergently contacted Dr. Vásquez was in the office. (Dr. Bedoya the on-call CT surgeon was operating). While on Levophed Shantanu-Synephrine and dopamine, patient developed coarse V. fib/V. tach, received brief CPR, and was DC cardioverted 1 with return of spontaneous circulation and sinus rhythm. I discussed with Dr. Corrales and anesthesiologist, I also contacted Dr. Josue from invasive radiology.Dr. Josue immediately arrived to the environmental laboratory technician. Dr. Abdelrahman francis performed PARVIN which showed vigorous LV contraction but cavity was empty. Received Continuous massive fluid resuscitation with multiple crystalloid boluses, bicarbonate and calcium. Blood arrived and initially 3 units of PRBC, 2 units of 1 unit of platelets was given with calcium total 3 g given after blood transfusion. Because of persistent hypotension, additional 2 units of PRBC was given. While I resuscitated the patient, Dr. Corrales and Dr. Jennings performed right heart cath, identified bleeding of a small branch in the left pulmonary artery. They put put in 6 coils in the lower left lower pulmonary artery followed with Gelfoam closing the perforation. 06/04: Emergency chest 2 yesterday for right pneumothorax with hypotension and hypoxia. Remains intubated sedated and on Levophed. FiO2 remains at 100%, Sat improving to 94-95 %. UO adequate overnight. 2-D echo on my review normal LV and RV function, no PFO on bubble study 06/05: Patient is in atrial fibrillation currently on Cardene infusion for blood pressure control. Chest x-ray shows percutaneous emphysema and small apical pneumothorax. Remains on 80% FiO2. I discussed with interventional radiology. We will attempt CT-guided repositioning of the pigtail catheter and possibly upgrading to a larger tube. Urine output adequate 750 mL in 24 hours 06/06: Currently remains in A. fib with rate controlled, hypertensive on Cardizem drip. Oxygen saturation has improved FiO2 now to 40% with saturation 97%. Urine output excellent with Lasix 4.5 L in 24 hours. Chest x-ray today shows 2.5 cm bilateral apical pneumothorax, also left side has 1.2 cm lateral pneumothorax 06/07: Intubated, on low dose propofol for ventilator synchrony. FiO2 40% oxygen saturation 99%. Chest x-ray and labs pending urine output 2.7 L. 3 chest tubes with no air leak. If neuro exam not improving off sedation will check CT of the head. Currently on propofol will interchange agent to Precedex to initiate weaning trials. On weaning doses of inhaled Flolan currently on 30, 000 ng 06/08: Remains intubated, mild sedation with Precedex. Overnight FiO2 increased to 65% for hypoxia. CXR left more than right consolidation of lower lobes. Sputum positive for MRSA on vancomycin. Bilateral lower extremity US studies yesterday showed DVT, initiated on IV heparin. Currently therapeutic on heparin. No evidence of pulmonary hemorrhage. Neuro exam is improving weekly follows commands all 4 extremities 06/09: remains intubated. failed CPAP yesterday. on Cleviprex and precedex. fio2 back to 40%. CXR improved aeration with the exception of known LLL. FC x 4. Objective Vital Signs Date Time Temp Pulse Resp B/P (MAP) Pulse Ox O2 Delivery O2 Flow Rate FiO2 06/09/17 08:02 70 141/61 06/09/17 04:00 94 Mechanical Ventilator 40 06/09/17 04:00 98.4 22 Intake and Output 06/09/17 06/09/17 06/10/17 08:00 16:00 00:00 Intake Total 1542 ml Output Total 1510 ml Balance 32 ml Result Diagram: 06/09/17 0430 06/09/17 0430 Other Results Microbiology Date/Time Source Procedure Growth Status 06/07/17 20:20 Urine Catheterized Urine Urine Culture - Final NO GROWTH IN 48 HOURS. Complete Objective Remarks GENERAL: Intubated sedated with Precedex. Moving extremities SKIN: Skin /dry. ENT: Orotracheally intubated. No significant secretion in the ETT. NECK: Trachea midline. CARDIOVASCULAR: Remains in atrial fibrillation, rate controlled. No murmurs. Intermittently paced RESPIRATORY: Bilateral coarse rhonchi and crackles. Diminished air entry at bases. Subcutaneous emphysema right chest significantly improved. Bilateral large bore chest tubes with no air leak, right anterior chest tube with no air leak GASTROINTESTINAL: Abdomen distended, having BM MUSCULOSKELETAL: LIJ central line in place NEUROLOGICAL: Patient is intubated, sedated with Precedex. awake, following commands x 4. RASS -1. A/P Assessment and Plan Assessment: 89yF with severe aortic stenosis, course complicated by Pulmonary Artery rupture during right heart catheterization, traumatic pneumothorax secondary to barotrauma, acute hypoxic respiratory failure, MRSA healthcare associated pneumonia, volume overload. remains off pathway and critically ill, although some organ systems improved. still failing CPAP for weakness and hypoxia. will again try CPAP. Will add anti-hypertensives to decrease cleviprex infusion. NEURO: Encephalopathy, metabolic - resolving. - Precedex to facilitate neuro exam - Daily sedation vacation - Continue to hold home sertraline -CT of the head and C-spine negative for acute injury RESP: Left lower pulmonary artery rupture with massive hemorrhage Massive hemoptysis Acute hypoxemic respiratory failure MRSA pneumonia Large Left hemothorax s/p IR chest tube placement Bilateral apical pneumothorax Residual L pneumothorax after hemothorax evacuation Bilateral lower extremity DVT - s/p coil and gelfoam closure of Left lower pulmonary artery (peripheral small branch) by Rhoda Corrales and Michaela (see resuscitation note on 06/03/17) - PC/AC mechanical ventilation PEEP of 8, Fio2 down 40% overnight increased to 65%. Chest x-ray shows left lower lobe pneumonia - Chest x-ray confirms pneumonia vs lung infarct. Sputum with MRSA. on vancomycin - s/p chest tube x2 for right pneumothorax on 06/03. New apical chest tube placed 06/06/17 - IR, placed 24 F Left chest tube 06/05 with drainage of 2 L hemothorax, residual pneumothorax present, now resolved - CXR 06/07, resolution of right improving subcutaneous emphysema. Small residual left apical pneumo - s/p Bronchoscopy with removal of blood predominantly from L lung, s/p repeat bronch 06/06 - DuoNeb q 6hours and PRN - Flolan weaned off - Venous duplex -bilateral lower extremity DVT. IV heparin started 06/07/17 therapeutic - continue daily SBTs. still failing for weakness and hypoxia. CV/Heme: Hemorrhagic shock-resolved Bilateral lower extremity DVT Anemia requiring transfusion Severe Aortic Stenosis Atrial fibrillation with RVR Possible history of ITP - IV heparin started 06/07/17 for bilateral lower extremity DVT and atrial fibrillation, watch closely for bloody chest tube output and hemoptysis - Continue home Cardizem CD 120 mg daily. - Cleviprex, when necessary hydralazine (well beta blocked) to keep systolic blood pressure less than 150 - Continue IV Lasix, 20 mg daily. Home metoprolol at 25 mg by mouth every 8 hours. Home dose of digoxin - On Multaq at home. Defer to Dr. Corrales - Received 6 units of emergency release blood, 2 units of FFP and one of platelets 06/03/17. Multiple crystalloid boluses were given, PARVIN normal LV contractility, volume depletion - 2D Echo 06/04 RV LV function look normal, no PFO - Resumed Promacta for ITP - add hydralazine 50mg po q8hr and increase losartan to 100mg daily. wean cleviprex as tolerated. GI: - OGT tube, IV Protonix. Tube feeds with Jevity. Having regular BMs : - Monitor renal function closely. Payne catheter. Urine output adequate - IV Lasix ID: MRSA pneumonia - Empiric Zosyn and single dose of vancomycin given 06/07, Vanc pharmacy to dose - BAL culture MRSA. Continue vancomycin for full 7 day course. ENDO: Hypokalemia Hypomagnesemia - Replace electrolytes per protocol PROPH: - DC SCDs due to DVT. IV Protonix. IV heparin started 06/07 LINES: - Left femoral cordis and central line Dcd 06/04. New LIJ central line placed CC time 37 min excluding procedure Jensen Muñoz MD Jun 09, 2017 09:48
[2017-06-09] MEDS: ELTROMBOPAG 50 MG TAB PO SCH (09:55)
--- NOTE | 2017-06-09 10:53 | RSPPFT ---
DATE OF PROCEDURE: 06/03/16 COMMENTS: Spirometry with FVC of 1.5, FEV1 of 0.9, FEV1/FVC ratio at 66%. Post-bronchodilator study was not performed. IMPRESSION: 1. Severe airways obstruction. 2. Post-bronchodilator study was not performed.
[2017-06-09] MEDS ORDERED: PHARMACY ORDERED LAB ONE (13:45)
[2017-06-09] MEDS: hydrALAZINE HCL 50 MG TAB PO SCH ×2 (13:46→17:53)
[2017-06-09] MEDS: VANCOMYCIN INJ 1,250 MG in SODIUM CHLOR 0.9% 250 ML INJ 250 ML IV SCH (13:46)
[2017-06-09] MEDS: HEPARIN 25,000 UNITS-D5W 250 ML - PREMIX IV SCH (15:56)
--- NOTE | 2017-06-09 17:32 | PD.WCN.NOT ---
Wound Consult Description: Consult placed for pressure ulcer of right heel and sacrum per Dr Esquivel/SUSAN Communicated with: FATIH Moreno Recommendation: Calazime to gluteal cleft/coccyx area BID and PRN for moisture. [place] right heel with Cavilon skin prep (barrier film) BID and leave open to air and floated off mattress surface. Continue to reposition patient every 2 hours and PRN for comfort. Additional Information: Patient seen on [facility] for wound evaluation. Blue heel raiser boot removed from right foot to reveal an improving, dissipating, non blanching dark maroon/ purple discoloration (deep tissue injury) measuring 2.2cm x 2.2cm x 0cm. DTI may be skin prepped BID and floated off mattress with heel raiser boots (in place on both feet) and left ALEX. Patient was then turned to her left side for assessment of sacral area. Sacrum is blanching erythema. Coccyx is non blanching erythema, indicating a Stage 1 pressure injury, measuring ~2cm x 1cm of intact skin. The gluteal cleft has a partial thickness skin loss area with jagged wound margins, indicating a moisture and friction etiology (skin tear) measuring 0.9cm x 0.3cm x <0.1cm with red non granulating tissue noted without drainage. Patient was noted to have had a soft bm and to be lying on a soiled pad that was removed and patient was cleansed. Calazime was applied and recommended to be reapplied BID and PRN for moisture. Please continue to reposition patient every 2 hours and PRN for comfort. Birgit Tejeda [facility] Jun 09, 2017 17:31
[2017-06-10] VITALS (9 sets, daily range): BP systolic 122–178; BP diastolic 54–83; PULSE 74–94; RESP 16–26; TEMP 97.1–97.8; O2SAT 94–98
[2017-06-10] MEDS: PIPERACIL-TAZO 3.375 GM PREMIX 50 ML IV SCH ×4 (00:56→20:34)
[2017-06-10] MEDS: DEXMEDETOMIDINE INJ 200 MCG in SODIUM CHLORIDE 0.9% INJ 50 ML IV PRN ×2 (03:44→20:33)
[2017-06-10] MEDS: hydrALAZINE HCL 50 MG TAB PO SCH ×3 (03:44→20:35)
[2017-06-10] MEDS: RESP: ALBUTEROL 2.5 MG/IPRATROPIUM 0.5 MG NEB (SCH) NEB ×4 (04:39→22:15)
[2017-06-10 04:40] LABS: APTT (PATIENT) 51.6 SEC (24.3-30.1)
[2017-06-10] MEDS: METOPROLOL TARTRATE 25 MG TAB PO SCH ×3 (05:27→22:00)
[2017-06-10] MEDS: LEVOTHYROXINE SODIUM 50 MCG TAB PO SCH (05:27)
[2017-06-10] MEDS: FREE WATER OG-TUBE SCH ×3 (05:28→12:00)
[2017-06-10] MEDS: INSULIN ASPART SUPPLEMENTAL SCALE SQ SCH ×2 (08:00→20:00)
[2017-06-10] MEDS: VANCOMYCIN INJ 1,250 MG in SODIUM CHLOR 0.9% 250 ML INJ 250 ML IV SCH (08:48)
[2017-06-10] MEDS: PANTOPRAZOLE SODIUM 40 MG VIAL IV PUSH SCH ×2 (08:48→20:34)
[2017-06-10] MEDS: CHLORHEXIDINE 0.12% (ORAL KIT) 15 ML CUP MT SCH ×2 (08:48→20:36)
--- NOTE | 2017-06-10 08:48 | PD.CARD.PN ---
Subjective Subjective Remarks overnight events noted. Sedated, Intubated Opening eyes and moving extremities, following commands Oxygenation improving Off Flolan Heparin gtt Objective Medications Current Medications Medications (Trade) Dose Ordered Sig/Padmini Route Start Time Stop Time Status Last Admin (Peridex 0.12% Liq) 15 ml BID@08,20 MT 06/03/17 20:00 06/09/17 20:00 (Duoneb Neb) 1 ampule Q2HR NEB PRN NEB 06/03/17 19:00 (Protonix Inj) 40 mg Q12H IV PUSH 06/03/17 20:00 06/09/17 22:18 Potassium Chloride 100 ml @ 50 mls/hr Q2H PRN IV 06/03/17 19:15 06/09/17 08:04 Potassium Chloride 100 ml @ 50 mls/hr Q2H PRN IV 06/03/17 19:15 (K-Lyte Cl Eff) 50 meq UNSCH PRN PO 06/03/17 19:15 Potassium Chloride 100 ml @ 25 mls/hr UNSCH PRN IV 06/03/17 19:15 06/06/17 18:46 Potassium Chloride 100 ml @ 50 mls/hr Q2H PRN IV 06/03/17 19:15 Magnesium Sulfate 4 gm/Sodium Chloride 100 ml @ 50 mls/hr UNSCH PRN IV 06/03/17 19:15 (Mag-Ox) 800 mg UNSCH PRN PO 06/03/17 19:15 Magnesium Sulfate 2 gm/Sodium Chloride 100 ml @ 50 mls/hr UNSCH PRN IV 06/03/17 19:15 06/04/17 16:45 (K-Phos) 2,000 mg Q4H PRN PO 06/03/17 19:15 Sodium Phosphate 30 mmol/Sodium Chloride 250 ml @ 42 mls/hr UNSCH PRN IV 06/03/17 19:15 (K-Phos) 2,000 mg UNSCH PRN PO/TUBE 06/03/17 19:15 Potassium Phosphate 30 mmol/ Sodium Chloride 260 ml @ 42 mls/hr UNSCH PRN IV 06/03/17 19:15 06/07/17 17:00 Piperacillin Sod/ Tazobactam Sod 50 ml @ 100 mls/hr Q6H IV 06/04/17 01:00 06/10/17 06:20 (D50w (Vial) Inj) 50 ml UNSCH PRN IV PUSH 06/04/17 12:15 (Glucagon Inj) 1 mg UNSCH PRN OTHER 06/04/17 12:15 (Lopressor Inj) 1.25 mg Q6H PRN IV PUSH 06/04/17 19:15 06/06/17 20:29 (Free Water) 250 ml Q6HR OG-TUBE 06/05/17 14:00 06/10/17 05:28 (Colace Liq) 100 mg Q12HR PO 06/05/17 14:00 06/09/17 08:04 (K-Lyte Cl Eff) 25 meq Q12HR PO 06/05/17 14:00 06/09/17 22:19 (Lanoxin) 0.125 mg DAILY PO 06/06/17 09:00 06/09/17 08:05 (Pill Splitter) 1 ea UNSCH PRN OTHER 06/06/17 09:00 Dexmedetomidine HCl 200 mcg/ Sodium Chloride 52 ml @ 3.27 mls/hr TITRATE PRN IV 06/07/17 07:00 06/10/17 03:44 (Lasix Inj) 20 mg DAILY IV PUSH 06/07/17 09:00 06/09/17 08:05 (Lopressor) 25 mg Q8HR PO 06/07/17 14:00 06/10/17 05:27 Clevidipine 50 ml @ 2 mls/hr TITRATE PRN IV 06/07/17 07:00 06/09/17 08:02 (Cardizem Cd) 120 mg DAILY PO 06/07/17 09:00 06/09/17 08:05 (Cozaar) 50 mg DAILY PO 06/07/17 09:00 06/09/17 08:05 Pharmacy Profile Note 0 ml @ 0 mls/hr UNSCH OTHER 06/07/17 07:15 (Apresoline Inj) 20 mg Q4H PRN IV PUSH 06/07/17 08:00 06/07/17 09:09 (Synthroid) 50 mcg DAILY@0600 PO 06/07/17 08:00 06/10/17 05:27 (Duoneb Neb) 1 ampule Q6HR NEB NEB 06/07/17 16:00 06/10/17 04:39 Vancomycin HCl 1250 mg/Sodium Chloride 262.5 ml @ 250 mls/hr Q18H IV 06/08/17 02:00 06/09/17 13:46 (Promacta) 25 mg DAILY@1000 PO 06/08/17 10:00 06/09/17 09:55 Heparin Sodium/ Dextrose 250 ml @ 11 mls/hr TITRATE IV 06/07/17 22:00 06/09/17 15:56 (Heparin Inj) 5,000 units UNSCH PRN IV PUSH 06/07/17 22:00 (Heparin Inj) 2,500 units UNSCH PRN IV PUSH 06/07/17 22:00 (Pill Splitter) 1 ea UNSCH PRN OTHER 06/07/17 22:15 (NovoLOG SUPPLEMENTAL SCALE) 1 BID@0800,2000 SQ 06/08/17 20:00 (Apresoline) 50 mg Q8H PO 06/09/17 11:00 06/10/17 03:44 Miscellaneous Information SPECIFIC LAB TO BE [facility]... ONCE ONCE .XX 06/11/17 19:45 06/11/17 19:46 Vital Signs / I&O Vital Signs Date Time Temp Pulse Resp B/P (MAP) Pulse Ox O2 Delivery O2 Flow Rate FiO2 06/10/17 04:39 98 40 06/10/17 04:00 40 06/10/17 03:00 74 06/10/17 03:00 97.8 83 16 122/55 (77) 97 144/54 (84) 06/10/17 03:00 97 Mechanical Ventilator 40 06/10/17 01:53 98 40 06/10/17 00:00 40 06/09/17 23:04 97 40 06/09/17 23:00 72 06/09/17 23:00 97 Mechanical Ventilator 40 06/09/17 23:00 98.0 76 16 140/71 (94) 97 152/62 (92) 06/09/17 20:17 97 40 06/09/17 20:00 40 06/09/17 19:00 98 Mechanical Ventilator 40 06/09/17 19:00 98.1 76 16 126/75 (92) 97 153/56 (88) 06/09/17 19:00 68 06/09/17 17:15 96 40 06/09/17 16:00 40 06/09/17 15:00 90 06/09/17 15:00 97 Mechanical Ventilator 40 06/09/17 15:00 97.9 90 20 130/56 (80) 97 125/53 (77) 06/09/17 12:43 40 06/09/17 12:20 40 06/09/17 11:00 95 Mechanical Ventilator 40 06/09/17 11:00 98.1 69 16 123/58 (79) 95 107/48 (67) 06/09/17 11:00 69 06/09/17 10:12 96 40 I/O 06/09/17 06/09/17 06/09/17 06/10/17 06/10/17 06/10/17 07:00 15:00 23:00 07:00 15:00 23:00 Intake Total 1542 ml 100 ml 1437 ml 1033 ml Output Total 1510 ml 1600 ml 645 ml Balance 32 ml 100 ml -163 ml 388 ml Intake Oral 0 ml IV Total 520 ml 100 ml 633 ml 100 ml Tube Feeding 522 ml 304 ml 433 ml Other 500 ml 500 ml 500 ml Output Urine Total 1280 ml 1450 ml 490 ml Chest Tube Drainage Total 230 ml 150 ml 155 ml # Bowel Movements 1 3 1 Physical Exam GENERAL: Sedated, intubated, pupils reactive SKIN: Warm and dry. HEAD: Normocephalic. EYES: No scleral icterus. No injection or drainage. NECK: Supple, trachea midline. No JVD or lymphadenopathy. CARDIOVASCULAR: Irr Irr 2/6SEM no gallops, or rubs. RESPIRATORY: Vented. GASTROINTESTINAL: Abdomen soft, non-tender, nondistended. EXTREMITIES: No cyanosis, or +edema. Laboratory Laboratory Tests Test 06/09/17 13:45 06/10/17 04:00 Vancomycin Level Trough 18.3 MCG/ML Activated Partial Thromboplast Time 51.6 SEC Imaging Last Impressions Chest X-Ray 06/09/17 0600 Signed Impressions: Service Date/Time: Friday, June 09, 2017 05:13 - CONCLUSION: 1. Improving bilateral pulmonary opacities. 2. Cardiomegaly. 3. Support lines and tubes without pneumothorax. Devan Waldrop MD Upper Extremity Ultrasound 06/07/17 0000 Signed Impressions: Service Date/Time: Wednesday, June 07, 2017 18:21 - CONCLUSION: 1. Limited exam but no deep venous thrombosis is identified bilaterally. Jamie Corrales MD Lower Extremity Ultrasound 06/07/17 Signed Impressions: Service Date/Time: Wednesday, June 07, 2017 17:57 - CONCLUSION: 1. Positive bilateral lower extremity deep venous thrombosis, nonocclusive as above. Jamie Corrales MD Head CT 06/07/17 Signed Impressions: Service Date/Time: Wednesday, June 07, 2017 17:01 - CONCLUSION: 1. No acute intracranial abnormality. 2. Extensive subcutaneous air tracking up from the chest. Luc Cain Jr., MD Cervical Spine CT 06/07/17 Signed Impressions: Service Date/Time: Wednesday, June 07, 2017 17:01 - CONCLUSION: 1. Extensive subcutaneous emphysema. 2. Tiny left apical pneumothorax. 3. Diffuse mild degenerative changes without central canal stenosis. Multilevel neural foraminal narrowing. 4. Prevertebral soft tissues obscured by an endotracheal tube and nasogastric tube. Luc Cain Jr., MD Chest Tube Insertion 06/05/17 Signed Impressions: Service Date/Time: May 09:15 - CONCLUSION: Uncomplicated chest tube placement as above. Maxwell Aldana MD Chest CT 06/05/17 Signed Impressions: Service Date/Time: May 08:47 - CONCLUSION: 1. Moderate left-sided hemothorax with associated left lower lobe consolidation which may reflect a combination of compressive atelectasis, aspiration, and potentially lung infarction given recent pulmonary artery embolization. 2. Trace right apical pneumothorax with large bore chest tube in the major fissure and smallbore chest tube in the soft tissues. Significant subcutaneous emphysema extending to the cervicothoracic junction bilaterally. 3. Airspace consolidation in the right lower lobe posteriorly may reflect aspiration. Maxwell Aldana MD Embolization 06/03/17 Signed Impressions: Service Date/Time: Saturday, June 03, 2017 00:00 - CONCLUSION: Left pulmonary artery rupture with successful coil embolization of a lower lobe branch vessel as above. Joselo Jennings MD Abdomen X-Ray 06/03/17 Signed Impressions: Service Date/Time: Saturday, June 03, 2017 18:04 - CONCLUSION: Tip of the NG tube appears to be coiled in the stomach. Savana Valdovinos MD Assessment and Plan Problem List: (1) Shock, postoperative ICD Codes: T81.10XA - Postprocedural shock unspecified, initial encounter Status: Resolved Plan: Moving extremities, pupils reactive. Following commands.Sedation off. Flolan off PNA on Vanco DVT on Heparin drip Recommendations: -Avoid electrolytes imbalance -Cont Heparin drip -Continue supportive care -CPAP trial today -Out o bed to chair -PT Case discuss with Dr. Muñoz (2) Pulmonary arterial thrombosis ICD Codes: I26.99 - Other pulmonary embolism without acute cor pulmonale Status: Acute (3) CAD (coronary artery disease) ICD Codes: I25.10 - Atherosclerotic heart disease of [place] coronary artery without angina pectoris (4) Aortic stenosis ICD Codes: I35.0 - Nonrheumatic aortic (valve) stenosis Brad Page MD Jun 10, 2017 08:48
[2017-06-10] MEDS: DIGOXIN 0.125 MG TAB PO SCH (08:49)
[2017-06-10] MEDS: DOCUSATE SODIUM 100 MG/10 ML UDC PO SCH ×2 (08:49→20:35)
[2017-06-10] MEDS: FUROSEMIDE 20 MG/2 ML VIAL IV PUSH SCH (08:49)
[2017-06-10] MEDS: DILTIAZEM-CD 120 MG CAP ER PO SCH (08:49)
[2017-06-10] MEDS: LOSARTAN 50 MG TAB PO SCH (08:49)
[2017-06-10] MEDS: POTASSIUM CHLORIDE 25 MEQ EFFERVESCENT TAB PO SCH ×2 (08:50→20:35)
[2017-06-10 09:00] LABS: HEMATOCRIT 33.1 % (35.0-46.0); MEAN CELL VOLUME 85.7 FL (80.0-100.0); MEAN CORPUSCULAR HEMOGLOBIN 28.3 PG (27.0-34.0); PLATELET COUNT 185 TH/MM3 (150-450); RED BLOOD COUNT 3.87 MIL/MM3 (4.00-5.30); REVIEW FLAG FINAL; WHITE BLOOD COUNT 16.1 TH/MM3 (4.0-11.0)
[2017-06-10 09:19] LABS: BICARBONATE 27.9 MEQ/L (21.0-32.0); POTASSIUM 3.7 MEQ/L (3.5-5.1)
--- NOTE | 2017-06-10 10:36 | HHI.CCPN ---
Subjective Remarks/Hospital Course I was emergently called to labourers by Dr. Corrales. Ms. Mahoney who is 89 yo female with history of severe aortic stenosis was undergoing left and right heart catheter for TAVR evaluation. With right heart catheterization patient developed acute massive hemoptysis with shock secondary to acute rupture of pulmonary artery. Patient was intubated by Dr. Potter and ETT was advance to Right lung for selective right lung ventilation due to massive hemorrhage from Left lung. On my arrival to labourers, patient was rapidly dropping blood pressure. Dopamine was already started. I ordered Shantanu-Synephrine, at 300 mcg/ m in an attempt to increase MAP and also increase the pulmonary vasoconstriction. Levophed was also added to maintain blood pressure and rapidly titrated up. Emergency release blood initially 3 units was ordered stat along with 2 units of FFP, 1 unit of platelet. I also emergently contacted Dr. Vásquez was in the office. (Dr. Bedoya the on-call CT surgeon was operating). While on Levophed Shantanu-Synephrine and dopamine, patient developed coarse V. fib/V. tach, received brief CPR, and was DC cardioverted 1 with return of spontaneous circulation and sinus rhythm. I discussed with Dr. Corrales and anesthesiologist, I also contacted Dr. Josue from invasive radiology.Dr. Josue immediately arrived to the labourers. Dr. Abdelrahman francis performed PARVIN which showed vigorous LV contraction but cavity was empty. Received Continuous massive fluid resuscitation with multiple crystalloid boluses, bicarbonate and calcium. Blood arrived and initially 3 units of PRBC, 2 units of 1 unit of platelets was given with calcium total 3 g given after blood transfusion. Because of persistent hypotension, additional 2 units of PRBC was given. While I resuscitated the patient, Dr. Corrales and Dr. Jennings performed right heart cath, identified bleeding of a small branch in the left pulmonary artery. They put put in 6 coils in the lower left lower pulmonary artery followed with Gelfoam closing the perforation. 06/04: Emergency chest 2 yesterday for right pneumothorax with hypotension and hypoxia. Remains intubated sedated and on Levophed. FiO2 remains at 100%, Sat improving to 94-95 %. UO adequate overnight. 2-D echo on my review normal LV and RV function, no PFO on bubble study 06/05: Patient is in atrial fibrillation currently on Cardene infusion for blood pressure control. Chest x-ray shows percutaneous emphysema and small apical pneumothorax. Remains on 80% FiO2. I discussed with interventional radiology. We will attempt CT-guided repositioning of the pigtail catheter and possibly upgrading to a larger tube. Urine output adequate 750 mL in 24 hours 06/06: Currently remains in A. fib with rate controlled, hypertensive on Cardizem drip. Oxygen saturation has improved FiO2 now to 40% with saturation 97%. Urine output excellent with Lasix 4.5 L in 24 hours. Chest x-ray today shows 2.5 cm bilateral apical pneumothorax, also left side has 1.2 cm lateral pneumothorax 06/07: Intubated, on low dose propofol for ventilator synchrony. FiO2 40% oxygen saturation 99%. Chest x-ray and labs pending urine output 2.7 L. 3 chest tubes with no air leak. If neuro exam not improving off sedation will check CT of the head. Currently on propofol will change of address clerk to Precedex to initiate weaning trials. On weaning doses of inhaled Flolan currently on 30, 000 ng 06/08: Remains intubated, mild sedation with Precedex. Overnight FiO2 increased to 65% for hypoxia. CXR left more than right consolidation of lower lobes. Sputum positive for MRSA on vancomycin. Bilateral lower extremity US studies yesterday showed DVT, initiated on IV heparin. Currently therapeutic on heparin. No evidence of pulmonary hemorrhage. Neuro exam is improving weekly follows commands all 4 extremities 06/09: remains intubated. failed CPAP yesterday. on Cleviprex and precedex. fio2 back to 40%. CXR improved aeration with the exception of known LLL. FC x 4. 06/10: failed SBT again for apnea. but much more awake. denies pain. ROS negative. off cleviprex. new air leak in chest tube. will get chest xray to re- eval. Objective Vital Signs Date Time Temp Pulse Resp B/P (MAP) Pulse Ox O2 Delivery O2 Flow Rate FiO2 06/10/17 08:40 40 06/10/17 04:39 98 06/10/17 03:00 74 06/10/17 03:00 97.8 16 122/55 (77) 144/54 (84) 06/10/17 03:00 Mechanical Ventilator Intake and Output 06/10/17 06/10/17 06/11/17 08:00 16:00 00:00 Intake Total 1033 ml Output Total 645 ml Balance 388 ml Result Diagram: 06/10/17 0749 06/10/17 0749 Other Results Microbiology Date/Time Source Procedure Growth Status 06/09/17 09:45 Stool Stool Stool Occult Blood (KIM) - Final HEMOCCULT POSITIVE Complete 06/07/17 20:05 Sputum Endotracheal Gram Stain - Final Complete 06/07/17 20:05 Sputum Culture - Final S. Aureus Mrsa Complete 06/07/17 20:20 Urine Catheterized Urine Urine Culture - Final NO GROWTH IN 48 HOURS. Complete Objective Remarks GENERAL: Intubated sedated with Precedex. Moving extremities SKIN: Skin /dry. ENT: Orotracheally intubated. No significant secretion in the ETT. NECK: Trachea midline. CARDIOVASCULAR: Remains in atrial fibrillation, rate controlled. No murmurs. Intermittently paced RESPIRATORY: Bilateral coarse rhonchi and crackles. Diminished air entry at bases. Subcutaneous emphysema right chest significantly improved. Bilateral large bore chest tubes with 1+ air leak this morning. GASTROINTESTINAL: Abdomen distended, having BM MUSCULOSKELETAL: LIJ central line in place NEUROLOGICAL: Patient is intubated, sedated with Precedex. awake, following commands x 4. RASS -1. A/P Assessment and Plan Assessment: 89yF with severe aortic stenosis, course complicated by Pulmonary Artery rupture during right heart catheterization, traumatic pneumothorax secondary to barotrauma, acute hypoxic respiratory failure, MRSA healthcare associated pneumonia, volume overload. remains off pathway and critically ill, although some organ systems improved. still failing CPAP for weakness and apnea. daily SBTs and OOB to stretcher chair daily. NEURO: Encephalopathy, metabolic - resolving. - Precedex to facilitate neuro exam - Daily sedation vacation - Continue to hold home sertraline -CT of the head and C-spine negative for acute injury RESP: Left lower pulmonary artery rupture with massive hemorrhage Massive hemoptysis Acute hypoxemic respiratory failure MRSA pneumonia Large Left hemothorax s/p IR chest tube placement Bilateral apical pneumothorax Residual L pneumothorax after hemothorax evacuation Bilateral lower extremity DVT - s/p coil and gelfoam closure of Left lower pulmonary artery (peripheral small branch) by Rhoda Corrales and Michaela (see resuscitation note on 06/03/17) - PC/AC mechanical ventilation PEEP of 8, Fio2 down 40% overnight increased to 65%. Chest x-ray shows left lower lobe pneumonia - Chest x-ray confirms pneumonia vs lung infarct. Sputum with MRSA. on vancomycin - s/p chest tube x2 for right pneumothorax on 06/03. New apical chest tube placed 06/06/17 - IR, placed 24 F Left chest tube 06/05 with drainage of 2 L hemothorax, residual pneumothorax present, now resolved - CXR 06/07, resolution of right improving subcutaneous emphysema. Small residual left apical pneumo - s/p Bronchoscopy with removal of blood predominantly from L lung, s/p repeat bronch 06/06 - DuoNeb q 6hours and PRN - Flolan weaned off - Venous duplex -bilateral lower extremity DVT. IV heparin started 06/07/17 therapeutic - continue daily SBTs. still failing for weakness and apnea. CV/Heme: Hemorrhagic shock-resolved Bilateral lower extremity DVT Anemia requiring transfusion Severe Aortic Stenosis Atrial fibrillation with RVR Possible history of ITP - IV heparin started 06/07/17 for bilateral lower extremity DVT and atrial fibrillation, watch closely for bloody chest tube output and hemoptysis - Continue home Cardizem CD 120 mg daily. - Cleviprex, when necessary hydralazine (well beta blocked) to keep systolic blood pressure less than 150 - Continue IV Lasix, 20 mg daily. Home metoprolol at 25 mg by mouth every 8 hours. Home dose of digoxin - On Multaq at home. Defer to Dr. Corrales - Received 6 units of emergency release blood, 2 units of FFP and one of platelets 06/03/17. Multiple crystalloid boluses were given, PARVIN normal LV contractility, volume depletion - 2D Echo 06/04 RV LV function look normal, no PFO - Resumed Promacta for ITP - hydralazine 50mg po q8hr and increased losartan to 100mg daily (06/09). now off cleviprex. GI: - OGT tube, IV Protonix. Tube feeds with Jevity. Having regular BMs : - Monitor renal function closely. Payne catheter. Urine output adequate - IV Lasix ID: MRSA pneumonia - Empiric Zosyn and single dose of vancomycin given 06/07, Vanc pharmacy to dose - BAL culture MRSA. Continue vancomycin for full 7 day course. ENDO: Hypokalemia Hypomagnesemia - Replace electrolytes per protocol PROPH: - DC SCDs due to DVT. IV Protonix. IV heparin started 06/07 LINES: - Left femoral cordis and central line Dcd 06/04. New LIJ central line placed Jensen Muñoz MD Jun 10, 2017 10:36
[2017-06-10] MEDS: ELTROMBOPAG 50 MG TAB PO SCH (10:52)
[2017-06-10] MEDS: HEPARIN 25,000 UNITS-D5W 250 ML - PREMIX IV SCH (10:57)
[2017-06-11] VITALS (18 sets, daily range): BP systolic 96–165; BP diastolic 46–75; PULSE 73–105; RESP 16–26; TEMP 97.7–98.4; O2SAT 88–99
[2017-06-11] MEDS: PIPERACIL-TAZO 3.375 GM PREMIX 50 ML IV SCH ×4 (01:15→21:21)
[2017-06-11] MEDS: VANCOMYCIN INJ 1,250 MG in SODIUM CHLOR 0.9% 250 ML INJ 250 ML IV SCH ×2 (02:06→21:22)
[2017-06-11] MEDS: hydrALAZINE HCL 50 MG TAB PO SCH ×3 (03:18→19:00)
[2017-06-11] MEDS: RESP: ALBUTEROL 2.5 MG/IPRATROPIUM 0.5 MG NEB (SCH) NEB ×2 (04:07→09:40)
[2017-06-11 04:51] LABS: APTT (PATIENT) 65.7 SEC (24.3-30.1)
[2017-06-11] MEDS: FREE WATER OG-TUBE SCH ×3 (06:00→12:00)
[2017-06-11] MEDS: METOPROLOL TARTRATE 25 MG TAB PO SCH ×3 (06:20→21:22)
[2017-06-11] MEDS: LEVOTHYROXINE SODIUM 50 MCG TAB PO SCH (06:20)
--- NOTE | 2017-06-11 06:32 | HHI.CCPN ---
Subjective Remarks/Hospital Course I was emergently called to photo lab manager by Dr. Corrales. Ms. Mahoney who is 89 yo female with history of severe aortic stenosis was undergoing left and right heart catheter for TAVR evaluation. With right heart catheterization patient developed acute massive hemoptysis with shock secondary to acute rupture of pulmonary artery. Patient was intubated by Dr. Potter and ETT was advance to Right lung for selective right lung ventilation due to massive hemorrhage from Left lung. On my arrival to photo lab manager, patient was rapidly dropping blood pressure. Dopamine was already started. I ordered Shantanu-Synephrine, at 300 mcg/ m in an attempt to increase MAP and also increase the pulmonary vasoconstriction. Levophed was also added to maintain blood pressure and rapidly titrated up. Emergency release blood initially 3 units was ordered stat along with 2 units of FFP, 1 unit of platelet. I also emergently contacted Dr. Vásquez was in the office. (Dr. Bedoya the on-call CT surgeon was operating). While on Levophed Shantanu-Synephrine and dopamine, patient developed coarse V. fib/V. tach, received brief CPR, and was DC cardioverted 1 with return of spontaneous circulation and sinus rhythm. I discussed with Dr. Corrales and anesthesiologist, I also contacted Dr. Josue from invasive radiology.Dr. Josue immediately arrived to the photo lab manager. Dr. Abdelrahman francis performed PARVIN which showed vigorous LV contraction but cavity was empty. Received Continuous massive fluid resuscitation with multiple crystalloid boluses, bicarbonate and calcium. Blood arrived and initially 3 units of PRBC, 2 units of 1 unit of platelets was given with calcium total 3 g given after blood transfusion. Because of persistent hypotension, additional 2 units of PRBC was given. While I resuscitated the patient, Dr. Corrales and Dr. Jennings performed right heart cath, identified bleeding of a small branch in the left pulmonary artery. They put put in 6 coils in the lower left lower pulmonary artery followed with Gelfoam closing the perforation. 06/04: Emergency chest 2 yesterday for right pneumothorax with hypotension and hypoxia. Remains intubated sedated and on Levophed. FiO2 remains at 100%, Sat improving to 94-95 %. UO adequate overnight. 2-D echo on my review normal LV and RV function, no PFO on bubble study 06/05: Patient is in atrial fibrillation currently on Cardene infusion for blood pressure control. Chest x-ray shows percutaneous emphysema and small apical pneumothorax. Remains on 80% FiO2. I discussed with interventional radiology. We will attempt CT-guided repositioning of the pigtail catheter and possibly upgrading to a larger tube. Urine output adequate 750 mL in 24 hours 06/06: Currently remains in A. fib with rate controlled, hypertensive on Cardizem drip. Oxygen saturation has improved FiO2 now to 40% with saturation 97%. Urine output excellent with Lasix 4.5 L in 24 hours. Chest x-ray today shows 2.5 cm bilateral apical pneumothorax, also left side has 1.2 cm lateral pneumothorax 06/07: Intubated, on low dose propofol for ventilator synchrony. FiO2 40% oxygen saturation 99%. Chest x-ray and labs pending urine output 2.7 L. 3 chest tubes with no air leak. If neuro exam not improving off sedation will check CT of the head. Currently on propofol will exchange engineer to Precedex to initiate weaning trials. On weaning doses of inhaled Flolan currently on 30, 000 ng 06/08: Remains intubated, mild sedation with Precedex. Overnight FiO2 increased to 65% for hypoxia. CXR left more than right consolidation of lower lobes. Sputum positive for MRSA on vancomycin. Bilateral lower extremity US studies yesterday showed DVT, initiated on IV heparin. Currently therapeutic on heparin. No evidence of pulmonary hemorrhage. Neuro exam is improving weekly follows commands all 4 extremities 06/09: remains intubated. failed CPAP yesterday. on Cleviprex and precedex. fio2 back to 40%. CXR improved aeration with the exception of known LLL. FC x 4. 06/10: failed SBT again for apnea. but much more awake. denies pain. ROS negative. off cleviprex. new air leak in chest tube. will get chest xray to re- eval. 06/11: Warm, well perfused. Alert, cooperative. Communicates with head nod, hand gestures. Comfortable respiratory pattern and acceptable excursions.Air leaks will seal when off positive pressure ventilation. FiO2 to 0.80 last night briefly; now 0.40. I'll come back later today and see if I can get her extubated. Objective Vital Signs Date Time Temp Pulse Resp B/P (MAP) Pulse Ox O2 Delivery O2 Flow Rate FiO2 06/11/17 04:05 99 40 06/11/17 04:00 98.4 73 18 127/62 (83) 06/11/17 04:00 Mechanical Ventilator Intake and Output 06/11/17 06/11/17 06/12/17 08:00 16:00 00:00 Intake Total 973 ml Output Total 784 ml Balance 189 ml Result Diagram: 06/10/17 0749 06/10/17 0749 Other Results Microbiology Date/Time Source Procedure Growth Status 06/09/17 09:45 Stool Stool Stool Occult Blood (KIM) - Final HEMOCCULT POSITIVE Complete Objective Remarks GENERAL: Intubated. Moving extremities SKIN: Skin /dry. ENT: Orotracheally intubated. NECK: Trachea midline. CARDIOVASCULAR: Remains in atrial fibrillation, rate well controlled in 80s. No murmurs. Systolic murmur. RESPIRATORY: Few rhonchi. Good air entry at bases. Bilateral chest tubes with 1 + air leak this morning. GASTROINTESTINAL: Abdomen distended, having BM. Soft, no guarding. MUSCULOSKELETAL: LIJ central line in place. Limbs well perfused. NEUROLOGICAL: Patient is intubated. Awake, following commands x 4. RASS -1. A/P Assessment and Plan Assessment: 89yF with severe aortic stenosis, course complicated by Pulmonary Artery rupture during right heart catheterization, traumatic pneumothorax secondary to barotrauma, acute hypoxic respiratory failure, MRSA healthcare associated pneumonia, volume overload. remains off pathway and critically ill, although some organ systems improved. still failing CPAP for weakness and apnea. daily SBTs and OOB to stretcher chair daily. NEURO: Encephalopathy, metabolic - resolving. - Precedex to facilitate neuro exam - Daily sedation vacation - Continue to hold home sertraline -CT of the head and C-spine negative for acute injury RESP: Left lower pulmonary artery rupture with massive hemorrhage Massive hemoptysis Acute hypoxemic respiratory failure MRSA pneumonia Large Left hemothorax s/p IR chest tube placement Bilateral apical pneumothorax Residual L pneumothorax after hemothorax evacuation Bilateral lower extremity DVT - s/p coil and gelfoam closure of Left lower pulmonary artery (peripheral small branch) by Rhoda Corrales and Michaela (see resuscitation note on 06/03/17) - PC/AC mechanical ventilation PEEP of 8, Fio2 down 40% overnight increased to 65%. Chest x-ray shows left lower lobe pneumonia - Chest x-ray confirms pneumonia vs lung infarct. Sputum with MRSA. on vancomycin - s/p chest tube x2 for right pneumothorax on 06/03. New apical chest tube placed 06/06/17 - IR, placed 24 F Left chest tube 06/05 with drainage of 2 L hemothorax, residual pneumothorax present, now resolved - CXR 06/07, resolution of right improving subcutaneous emphysema. Small residual left apical pneumo - s/p Bronchoscopy with removal of blood predominantly from L lung, s/p repeat bronch 06/06 - DuoNeb q 6hours and PRN - Flolan weaned off - Venous duplex -bilateral lower extremity DVT. IV heparin started 06/07/17 therapeutic - continue daily SBTs. still failing for weakness and apnea. - Try to extubate (to intermittent BiPAP if necessary) CV/Heme: Hemorrhagic shock-resolved Bilateral lower extremity DVT Anemia requiring transfusion Severe Aortic Stenosis Atrial fibrillation with RVR Possible history of ITP - IV heparin started 06/07/17 for bilateral lower extremity DVT and atrial fibrillation, watch closely for bloody chest tube output and hemoptysis - Continue home Cardizem CD 120 mg daily. - Cleviprex, when necessary hydralazine (well beta blocked) to keep systolic blood pressure less than 150 - Continue IV Lasix, 20 mg daily. Home metoprolol at 25 mg by mouth every 8 hours. Home dose of digoxin - On Multaq at home. Defer to Dr. Corrales - Received 6 units of emergency release blood, 2 units of FFP and one of platelets 06/03/17. Multiple crystalloid boluses were given, PARVIN normal LV contractility, volume depletion - 2D Echo 06/04 RV LV function look normal, no PFO - Resumed Promacta for ITP - hydralazine 50mg po q8hr and increased losartan to 100mg daily (06/09). now off cleviprex. GI: - OGT tube, IV Protonix. Tube feeds with Jevity. Having regular BMs : - Monitor renal function closely. Payne catheter. Urine output adequate - IV Lasix ID: MRSA pneumonia - Empiric Zosyn and single dose of vancomycin given 06/07, Vanc pharmacy to dose - BAL culture MRSA. Continue vancomycin for full 7 day course. ENDO: Hypokalemia Hypomagnesemia - Replace electrolytes per protocol PROPH: - DC SCDs due to DVT. IV Protonix. IV heparin started 06/07 LINES: - Left femoral cordis and central line Dcd 06/04. New LIJ central line placed Overall impression: She probably will benefit from a trial extubation during a period where I can watch her closely for a while. Plan later this morning. Check CXR first. Rich Langford MD Jun 11, 2017 06:32
--- NOTE | 2017-06-11 06:52 | RADRPT ---
EXAM DATE/TIME: 06/11/2017 06:34 [facility] COMPARISON: CHEST SINGLE AP, June 09, 2017, 5:13. INDICATIONS : Shortness of breath. MEDICAL HISTORY : Congestive heart failure. Hypertension Carcinoma, colon. Aortic stenosis SURGICAL HISTORY : Splenectomy. Pacemaker. ENCOUNTER: Subsequent ACUITY: 1 week PAIN SCORE: 0/10 LOCATION: Bilateral chest FINDINGS: A single view of the chest demonstrates bibasilar densities. Bilateral chest tubes without definite p neumothorax. Endotracheal tube with tip 2 cm above the mikel. Nasogastric tube tip in stomach. Left jugular central line stable in position. Left-sided pacemaker unchanged. Coil seen overlying the left heart. The cardiomediastinal contours are unremarkable. Osseous structures are intact. CONCLUSION: 1. Bibasilar densities. 2. Support lines and tubes as described above. 3. Bilateral chest tubes without definite pneumothorax. Devan Waldrop MD on June 11, 2017 at 6:49 Board Certified Radiologist. This report was verified electronically.
[2017-06-11] MEDS: INSULIN ASPART SUPPLEMENTAL SCALE SQ SCH ×2 (08:00→20:00)
[2017-06-11 08:28] LABS: BICARBONATE 29.5 MEQ/L (21.0-32.0); POTASSIUM 3.6 MEQ/L (3.5-5.1)
[2017-06-11] MEDS: CHLORHEXIDINE 0.12% (ORAL KIT) 15 ML CUP MT SCH ×2 (08:49→20:00)
[2017-06-11] MEDS: DOCUSATE SODIUM 100 MG/10 ML UDC PO SCH ×2 (09:00→21:00)
[2017-06-11] MEDS: DEXMEDETOMIDINE INJ 200 MCG in SODIUM CHLORIDE 0.9% INJ 50 ML IV PRN ×2 (09:07→22:21)
[2017-06-11] MEDS: POTASSIUM CHLORIDE 25 MEQ EFFERVESCENT TAB PO SCH ×2 (09:08→21:22)
[2017-06-11] MEDS: PANTOPRAZOLE SODIUM 40 MG VIAL IV PUSH SCH ×2 (09:08→21:22)
[2017-06-11] MEDS: FUROSEMIDE 20 MG/2 ML VIAL IV PUSH SCH (09:08)
[2017-06-11] MEDS: DILTIAZEM-CD 120 MG CAP ER PO SCH (09:08)
[2017-06-11] MEDS: LOSARTAN 50 MG TAB PO SCH (09:09)
[2017-06-11] MEDS: DIGOXIN 0.125 MG TAB PO SCH (09:09)
[2017-06-11] MEDS: HEPARIN 25,000 UNITS-D5W 250 ML - PREMIX IV SCH (09:11)
[2017-06-11] MEDS: ELTROMBOPAG 50 MG TAB PO SCH (10:00)
--- NOTE | 2017-06-11 12:10 | PD.CARD.PN ---
Subjective Subjective Remarks overnight events noted. Intubated Tolerating CPAP Opening eyes and moving extremities, following commands Off Flolan On Heparin gtt Objective Medications Current Medications Medications (Trade) Dose Ordered Sig/Padmini Route Start Time Stop Time Status Last Admin (Peridex 0.12% Liq) 15 ml BID@08,20 MT 06/03/17 20:00 06/11/17 08:49 (Duoneb Neb) 1 ampule Q2HR NEB PRN NEB 06/03/17 19:00 (Protonix Inj) 40 mg Q12H IV PUSH 06/03/17 20:00 06/11/17 09:08 Potassium Chloride 100 ml @ 50 mls/hr Q2H PRN IV 06/03/17 19:15 06/09/17 08:04 Potassium Chloride 100 ml @ 50 mls/hr Q2H PRN IV 06/03/17 19:15 (K-Lyte Cl Eff) 50 meq UNSCH PRN PO 06/03/17 19:15 Potassium Chloride 100 ml @ 25 mls/hr UNSCH PRN IV 06/03/17 19:15 06/06/17 18:46 Potassium Chloride 100 ml @ 50 mls/hr Q2H PRN IV 06/03/17 19:15 Magnesium Sulfate 4 gm/Sodium Chloride 100 ml @ 50 mls/hr UNSCH PRN IV 06/03/17 19:15 (Mag-Ox) 800 mg UNSCH PRN PO 06/03/17 19:15 Magnesium Sulfate 2 gm/Sodium Chloride 100 ml @ 50 mls/hr UNSCH PRN IV 06/03/17 19:15 06/04/17 16:45 (K-Phos) 2,000 mg Q4H PRN PO 06/03/17 19:15 Sodium Phosphate 30 mmol/Sodium Chloride 250 ml @ 42 mls/hr UNSCH PRN IV 06/03/17 19:15 (K-Phos) 2,000 mg UNSCH PRN PO/TUBE 06/03/17 19:15 Potassium Phosphate 30 mmol/ Sodium Chloride 260 ml @ 42 mls/hr UNSCH PRN IV 06/03/17 19:15 06/07/17 17:00 Piperacillin Sod/ Tazobactam Sod 50 ml @ 100 mls/hr Q6H IV 06/04/17 01:00 06/11/17 06:20 (D50w (Vial) Inj) 50 ml UNSCH PRN IV PUSH 06/04/17 12:15 (Glucagon Inj) 1 mg UNSCH PRN OTHER 06/04/17 12:15 (Lopressor Inj) 1.25 mg Q6H PRN IV PUSH 06/04/17 19:15 06/06/17 20:29 (Free Water) 250 ml Q6HR OG-TUBE 06/05/17 14:00 06/11/17 06:00 (Colace Liq) 100 mg Q12HR PO 06/05/17 14:00 06/09/17 08:04 (K-Lyte Cl Eff) 25 meq Q12HR PO 06/05/17 14:00 06/11/17 09:08 (Lanoxin) 0.125 mg DAILY PO 06/06/17 09:00 06/11/17 09:09 (Pill Splitter) 1 ea UNSCH PRN OTHER 06/06/17 09:00 Dexmedetomidine HCl 200 mcg/ Sodium Chloride 52 ml @ 3.27 mls/hr TITRATE PRN IV 06/07/17 07:00 06/11/17 09:07 (Lasix Inj) 20 mg DAILY IV PUSH 06/07/17 09:00 06/11/17 09:08 (Lopressor) 25 mg Q8HR PO 06/07/17 14:00 06/11/17 06:20 Clevidipine 50 ml @ 2 mls/hr TITRATE PRN IV 06/07/17 07:00 06/09/17 08:02 (Cardizem Cd) 120 mg DAILY PO 06/07/17 09:00 06/11/17 09:08 (Cozaar) 50 mg DAILY PO 06/07/17 09:00 06/11/17 09:09 Pharmacy Profile Note 0 ml @ 0 mls/hr UNSCH OTHER 06/07/17 07:15 (Apresoline Inj) 20 mg Q4H PRN IV PUSH 06/07/17 08:00 06/07/17 09:09 (Synthroid) 50 mcg DAILY@0600 PO 06/07/17 08:00 06/11/17 06:20 (Duoneb Neb) 1 ampule Q6HR NEB NEB 06/07/17 16:00 06/11/17 09:40 Vancomycin HCl 1250 mg/Sodium Chloride 262.5 ml @ 250 mls/hr Q18H IV 06/08/17 02:00 06/11/17 02:06 (Promacta) 25 mg DAILY@1000 PO 06/08/17 10:00 06/10/17 10:52 Heparin Sodium/ Dextrose 250 ml @ 11 mls/hr TITRATE IV 06/07/17 22:00 06/11/17 09:11 (Heparin Inj) 5,000 units UNSCH PRN IV PUSH 06/07/17 22:00 (Heparin Inj) 2,500 units UNSCH PRN IV PUSH 06/07/17 22:00 (Pill Splitter) 1 ea UNSCH PRN OTHER 06/07/17 22:15 (NovoLOG SUPPLEMENTAL SCALE) 1 BID@0800,2000 SQ 06/08/17 20:00 (Apresoline) 50 mg Q8H PO 06/09/17 11:00 06/11/17 03:18 Miscellaneous Information SPECIFIC LAB TO BE [facility]... ONCE ONCE .XX 06/11/17 19:45 06/11/17 19:46 Vital Signs / I&O Vital Signs Date Time Temp Pulse Resp B/P (MAP) Pulse Ox O2 Delivery O2 Flow Rate FiO2 06/11/17 11:00 97.7 86 21 105/49 (67) 96 06/11/17 11:00 86 06/11/17 11:00 97 Mechanical Ventilator 40 06/11/17 09:40 97 40 06/11/17 08:00 40 06/11/17 07:15 97 40 06/11/17 07:00 98.2 76 18 131/70 (90) 97 06/11/17 07:00 76 06/11/17 07:00 97 Mechanical Ventilator 40 06/11/17 04:05 99 40 06/11/17 04:00 98.4 73 18 127/62 (83) 99 06/11/17 04:00 99 Mechanical Ventilator 40 06/11/17 04:00 75 06/11/17 04:00 40 06/11/17 02:02 99 Mechanical Ventilator 50 06/11/17 01:57 50 06/11/17 01:50 99 50 06/11/17 00:00 98.3 81 16 165/70 (101) 99 Arterial Line 06/11/17 00:00 75 06/11/17 00:00 99 Mechanical Ventilator 80 06/10/17 22:10 94 80 06/10/17 22:00 99 Mechanical Ventilator 80 06/10/17 22:00 80 06/10/17 20:00 97 Mechanical Ventilator 40 06/10/17 20:00 88 06/10/17 20:00 97.7 88 25 178/83 (114) 98 176/61 (99) 06/10/17 20:00 40 06/10/17 16:27 98 40 06/10/17 16:00 40 06/10/17 15:00 97.7 76 26 153/76 (101) 97 158/70 (99) 06/10/17 15:00 76 06/10/17 15:00 97 Mechanical Ventilator 40 I/O 06/10/17 06/10/17 06/10/17 06/11/17 06/11/17 06/11/17 07:00 15:00 23:00 07:00 15:00 23:00 Intake Total 1033 ml 300 ml 703 ml 973 ml Output Total 645 ml 1080 ml 784 ml Balance 388 ml 300 ml -377 ml 189 ml IV Total 100 ml 300 ml 203 ml Tube Feeding 433 ml 293 ml Other 500 ml 500 ml 680 ml Output Urine Total 490 ml 1000 ml 690 ml Gastric Drainage Total 0 ml Chest Tube Drainage Total 155 ml 80 ml 94 ml # Bowel Movements 1 1 Physical Exam GENERAL: Intubated, pupils reactive, Alert, awake, oriented SKIN: Warm and dry. HEAD: Normocephalic. EYES: No scleral icterus. No injection or drainage. NECK: Supple, trachea midline. No JVD or lymphadenopathy. CARDIOVASCULAR: Irr Irr 2/6SEM no gallops, or rubs. RESPIRATORY: Vented. GASTROINTESTINAL: Abdomen soft, non-tender, nondistended. EXTREMITIES: No cyanosis, or +edema. Laboratory Laboratory Tests Test 06/11/17 04:15 06/11/17 06:50 Activated Partial Thromboplast Time 65.7 SEC Blood Urea Nitrogen 23 MG/DL Creatinine 0.66 MG/DL Random Glucose 145 MG/DL Calcium Level 8.1 MG/DL Magnesium Level 2.0 MG/DL Sodium Level 136 MEQ/L Potassium Level 3.6 MEQ/L Chloride Level 99 MEQ/L Carbon Dioxide Level 29.5 MEQ/L Anion Gap 8 MEQ/L Estimat Glomerular Filtration Rate 84 ML/MIN Imaging Last 24 hours Impressions Chest X-Ray 06/11/17 0000 Signed Impressions: Service Date/Time: Sunday, June 11, 2017 06:34 - CONCLUSION: 1. Bibasilar densities. 2. Support lines and tubes as described above. 3. Bilateral chest tubes without definite pneumothorax. Devan Waldrop MD Assessment and Plan Problem List: (1) Shock, postoperative ICD Codes: T81.10XA - Postprocedural shock unspecified, initial encounter Status: Resolved Plan: Moving extremities, pupils reactive. Following commands.Sedation off. Flolan off PNA on Vanco DVT on Heparin drip Recommendations: -Avoid electrolytes imbalance -Cont Heparin drip -Continue supportive care -CPAP trial today -Out o bed to chair -PT -Wean ET CASE DISCUSS WITH FAMILY AND DR. REICH (2) Pulmonary arterial thrombosis ICD Codes: I26.99 - Other pulmonary embolism without acute cor pulmonale Status: Acute (3) CAD (coronary artery disease) ICD Codes: I25.10 - Atherosclerotic heart disease of [place] coronary artery without angina pectoris (4) Aortic stenosis ICD Codes: I35.0 - Nonrheumatic aortic (valve) stenosis Brad Page MD Jun 11, 2017 12:09
[2017-06-11] MEDS ORDERED: FUROSEMIDE 40 MG/4 ML VIAL ONE (14:39)
[2017-06-11] MEDS: RESP: ALBUTEROL 2.5 MG/IPRATROPIUM 0.5 MG NEB (PRN) NEB ×2 (16:20→22:26)
[2017-06-11] MEDS: hydrALAZINE HCL 20 MG/ML VIAL IV PUSH PRN (17:20)
[2017-06-11] MEDS ORDERED: ETOMIDATE 40 MG/20 ML VIAL ONE (18:45)
[2017-06-11] MEDS ORDERED: DILTIAZEM HCL 25 MG/5 ML VIAL ONE (19:33)
[2017-06-11] MEDS ORDERED: PHARMACY ORDERED LAB ONE (19:45)
--- NOTE | 2017-06-11 19:47 | RADRPT ---
EXAM DATE/TIME: 06/11/2017 19:10 [facility] COMPARISON: ANGIOGRAM, PULMONARY, LEFT, June 03, 2017, 0:00. TRANSCATH IV OCCLUSSION, June 03, 2017, 0:00. CHEST SINGLE AP, June 05, 2017, 19:25. CT THORAX W/O CONTRAST, June 05, 2017, 8:47. CHEST T UBE PLACEMENT, LEFT, June 05, 2017, 9:15. CHEST SINGLE AP, June 11, 2017, 6:34. INDICATIONS : Status post intubation. Evaluate for ET tube placement. MEDICAL HISTORY : Congestive heart failure. Hypertension Carcinoma, colon. Aortic stenosis. SURGICAL HISTORY : Splenectomy. Pacemaker. ENCOUNTER: Subsequent ACUITY: 1 day PAIN SCORE: Non-responsive. LOCATION: chest FINDINGS: Endotracheal tube is present in satisfactory position with tip just above the mikel. Left neck centr al line is stable. Pacemaker device is noted with control pack over the left chest. Bilateral thoraco stomy tubes are noted. Tiny bilateral apical pneumothoraces persist. There is patchy mild interstitia l parenchymal opacity bilaterally and consolidative change in the left base. Overall aeration is impr shelby. Cardiac contours are stable. Coil embolic material overlies the left infrahilar region. CONCLUSION: Satisfactory ET tube positioning with improved aeration. Tiny bilateral pneumothoraces. Alvin Walls MD on June 11, 2017 at 19:41 Board Certified Radiologist. This report was verified electronically.
--- NOTE | 2017-06-11 20:44 | PD.PROCEDR ---
Procedure Note Procedure Endotracheal Intubation A time-out was completed verifying correct patient, procedure, site, positioning , and special equipment if applicable. The patient was placed in a flat position. Sedation was obtained using Etomidate 20mg. The patient was easily ventilated using an ambu bag. The [employer]/ MAC 4 BLADE was used and inserted into the oropharynx at which time there was a Grade 1 view of the vocal cords. A 8-turkish endotracheal tube was inserted and visualized going through the vocal cords. The stylette was removed. Colorimetric change was visualized on the CO2 meter. Breath sounds were heard in both lung huston equally. The endotracheal tube was placed at 23 cm, measured at the teeth. A chest x-ray was ordered to assess for pneumothorax and verify endotrachealtube placement. Estimated Blood Loss: 0 The patient tolerated the procedure well and there were no complications. Bassam Frost MD Jun 11, 2017 20:44
[2017-06-11 21:09] LABS: BLOOD GAS CARBOXYHEMOGLOBIN 1.6 % (0-4); BLOOD GAS HCO3 27 mmol/L (22-26); BLOOD GAS METHEMOGLOBIN 1.2 % (0-2); BLOOD GAS O2 HGB SATURATION 96 % (90-100); BLOOD GAS OXYGEN CONTENT 17.2 Vol % (12.0-20.0); BLOOD GAS PCO2 41 mmHg (38-42); BLOOD GAS PO2 146 mmHg (61-120); BLOOD GAS TOTAL HGB 12.5 G/DL (12.0-16.0); CRITICAL VALUE NO; OXYGEN DEVICE VENTILATOR; TEMP CORR TO 98.6
[2017-06-11 21:10] LABS: DRAW SITE RT RADIAL; FIO2 60 %; NUMBER OF ARTERIAL PUNCTURES 1; STAT NO
[2017-06-11 21:12] LABS: VENT SETTINGS PRVC/16/400/
[2017-06-12] VITALS (15 sets, daily range): BP systolic 106–188; BP diastolic 47–81; PULSE 64–112; RESP 17–21; TEMP 98.4–100.2; O2SAT 95–99
[2017-06-12] MEDS: DEXMEDETOMIDINE INJ 200 MCG in SODIUM CHLORIDE 0.9% INJ 50 ML IV PRN ×8 (00:54→22:08)
[2017-06-12] MEDS: hydrALAZINE HCL 50 MG TAB PO SCH (03:00)
[2017-06-12] MEDS: PIPERACIL-TAZO 3.375 GM PREMIX 50 ML IV SCH (03:26)
[2017-06-12] MEDS: HEPARIN 25,000 UNITS-D5W 250 ML - PREMIX IV SCH ×2 (03:30→18:24)
[2017-06-12] MEDS: RESP: ALBUTEROL 2.5 MG/IPRATROPIUM 0.5 MG NEB (PRN) NEB (03:33)
[2017-06-12 04:47] LABS: HEMATOCRIT 33.1 % (35.0-46.0); MEAN CELL VOLUME 86.3 FL (80.0-100.0); MEAN CORPUSCULAR HEMOGLOBIN 28.2 PG (27.0-34.0); MEAN CORPUSCULAR HGB CONC 32.7 % (32.0-36.0); PLATELET COUNT 272 TH/MM3 (150-450); RED BLOOD COUNT 3.83 MIL/MM3 (4.00-5.30); RED CELL DISTRIBUTION WIDTH 15.6 % (11.6-17.2); WHITE BLOOD COUNT 32.4 TH/MM3 (4.0-11.0)
[2017-06-12 04:50] LABS: HEMO FLAGS AUTO DIFF
[2017-06-12 04:55] LABS: APTT (PATIENT) 86.4 SEC (24.3-30.1)
[2017-06-12 05:11] LABS: ALT (GPT) 34 U/L (10-53); ANION GAP 9 MEQ/L (5-15); AST (GOT) 32 U/L (15-37); BICARBONATE 27.7 MEQ/L (21.0-32.0); BLOOD UREA NITROGEN 31 MG/DL (7-18); CHLORIDE 102 MEQ/L (98-107); GLOMERULAR FILTRATION RATE 55 ML/MIN (>89); MAGNESIUM 2.1 MG/DL (1.5-2.5); SODIUM (NA) 139 MEQ/L (136-145)
[2017-06-12 05:24] LABS: BANDS 4 % (0-6); EOSINOPHILS 1 % (0-4); METAMYELOCYTES 1 % (0-1); NEUTROPHIL # MANUAL DIFF 30.1 TH/MM3 (1.8-7.7); POLYS (SEG NEUTROPHILS) 88 % (16-70); WBC DIFF SAMPLE 100
[2017-06-12 05:25] LABS: ALKALINE PHOSPHATASE 138 U/L (45-117); DIGOXIN 1.3 NG/ML (0.8-2.0); PLATELET ESTIMATE SMEAR NORMAL (NORMAL); PLATELET MORPHOLOGY NORMAL (NORMAL); SCAN/DIFF FINAL DIFF MANUAL; TOTAL BILIRUBIN ADULT 1.6 MG/DL (0.2-1.0)
[2017-06-12] MEDS: FREE WATER OG-TUBE SCH ×4 (05:35→18:00)
[2017-06-12] MEDS: LEVOTHYROXINE SODIUM 50 MCG TAB PO SCH (05:37)
[2017-06-12] MEDS: METOPROLOL TARTRATE 25 MG TAB PO SCH ×3 (05:37→22:09)
--- NOTE | 2017-06-12 06:19 | HHI.CCPN ---
Subjective Remarks/Hospital Course I was emergently called to chemistry lab instructor by Dr. Corrales. Ms. Mahoney who is 89 yo female with history of severe aortic stenosis was undergoing left and right heart catheter for TAVR evaluation. With right heart catheterization patient developed acute massive hemoptysis with shock secondary to acute rupture of pulmonary artery. Patient was intubated by Dr. Potter and ETT was advance to Right lung for selective right lung ventilation due to massive hemorrhage from Left lung. On my arrival to chemistry lab instructor, patient was rapidly dropping blood pressure. Dopamine was already started. I ordered Shantanu-Synephrine, at 300 mcg/ m in an attempt to increase MAP and also increase the pulmonary vasoconstriction. Levophed was also added to maintain blood pressure and rapidly titrated up. Emergency release blood initially 3 units was ordered stat along with 2 units of FFP, 1 unit of platelet. I also emergently contacted Dr. Vásquez was in the office. (Dr. Bedoya the on-call CT surgeon was operating). While on Levophed Shantanu-Synephrine and dopamine, patient developed coarse V. fib/V. tach, received brief CPR, and was DC cardioverted 1 with return of spontaneous circulation and sinus rhythm. I discussed with Dr. Corrales and anesthesiologist, I also contacted Dr. Josue from invasive radiology.Dr. Josue immediately arrived to the chemistry lab instructor. Dr. Abdelrahamn francis performed PARVIN which showed vigorous LV contraction but cavity was empty. Received Continuous massive fluid resuscitation with multiple crystalloid boluses, bicarbonate and calcium. Blood arrived and initially 3 units of PRBC, 2 units of 1 unit of platelets was given with calcium total 3 g given after blood transfusion. Because of persistent hypotension, additional 2 units of PRBC was given. While I resuscitated the patient, Dr. Corrales and Dr. Jennings performed right heart cath, identified bleeding of a small branch in the left pulmonary artery. They put put in 6 coils in the lower left lower pulmonary artery followed with Gelfoam closing the perforation. 06/04: Emergency chest 2 yesterday for right pneumothorax with hypotension and hypoxia. Remains intubated sedated and on Levophed. FiO2 remains at 100%, Sat improving to 94-95 %. UO adequate overnight. 2-D echo on my review normal LV and RV function, no PFO on bubble study 06/05: Patient is in atrial fibrillation currently on Cardene infusion for blood pressure control. Chest x-ray shows percutaneous emphysema and small apical pneumothorax. Remains on 80% FiO2. I discussed with interventional radiology. We will attempt CT-guided repositioning of the pigtail catheter and possibly upgrading to a larger tube. Urine output adequate 750 mL in 24 hours 06/06: Currently remains in A. fib with rate controlled, hypertensive on Cardizem drip. Oxygen saturation has improved FiO2 now to 40% with saturation 97%. Urine output excellent with Lasix 4.5 L in 24 hours. Chest x-ray today shows 2.5 cm bilateral apical pneumothorax, also left side has 1.2 cm lateral pneumothorax 06/07: Intubated, on low dose propofol for ventilator synchrony. FiO2 40% oxygen saturation 99%. Chest x-ray and labs pending urine output 2.7 L. 3 chest tubes with no air leak. If neuro exam not improving off sedation will check CT of the head. Currently on propofol will knife changer to Precedex to initiate weaning trials. On weaning doses of inhaled Flolan currently on 30, 000 ng 06/08: Remains intubated, mild sedation with Precedex. Overnight FiO2 increased to 65% for hypoxia. CXR left more than right consolidation of lower lobes. Sputum positive for MRSA on vancomycin. Bilateral lower extremity US studies yesterday showed DVT, initiated on IV heparin. Currently therapeutic on heparin. No evidence of pulmonary hemorrhage. Neuro exam is improving weekly follows commands all 4 extremities 06/09: remains intubated. failed CPAP yesterday. on Cleviprex and precedex. fio2 back to 40%. CXR improved aeration with the exception of known LLL. FC x 4. 06/10: failed SBT again for apnea. but much more awake. denies pain. ROS negative. off cleviprex. new air leak in chest tube. will get chest xray to re- eval. 06/11: Warm, well perfused. Alert, cooperative. Communicates with head nod, hand gestures. Comfortable respiratory pattern and acceptable excursions.Air leaks will seal when off positive pressure ventilation. FiO2 to 0.80 last night briefly; now 0.40. I'll come back later today and see if I can get her extubated. 06/12: Required re-intubation for hypoxemic respiratory failure last evening. She is now warm with well perfused fingers and toes. Low dose levophed not hampering peripheral perfusion. Mild prerenal azotemia. CXR with diffuse infiltrates as before. WBC 32,00, afebrile. Must assume colonized lungs at least. Antibiotic coverage is appropriate. Reculture sputum, urine. Progress to weaning trials daily.Hemodynamics appear excellent, rate a minor problem pretty well controlled. Continue Vanc. Stop pip/roxi, start cefepime. Narrow after cultures. Change CVLs, draw blood cultures Objective Vital Signs Date Time Temp Pulse Resp B/P (MAP) Pulse Ox O2 Delivery O2 Flow Rate FiO2 06/12/17 03:53 98 40 06/12/17 03:00 Mechanical Ventilator 06/12/17 03:00 91 06/12/17 03:00 98.4 18 131/49 (76) 06/11/17 14:25 40.00 Intake and Output 06/12/17 06/12/17 06/13/17 08:00 16:00 00:00 Intake Total 200 ml Output Total 400 ml Balance -200 ml Result Diagram: 06/12/17 0420 06/12/17 0420 Other Results Microbiology Date/Time Source Procedure Growth Status 06/09/17 09:45 Stool Stool Stool Occult Blood (KIM) - Final HEMOCCULT POSITIVE Complete Laboratory Tests Test 06/11/17 20:55 Blood Gas Puncture Site RT RADIAL Blood Gas Patient Temperature 98.6 Blood Gas HCO3 27 mmol/L (22-26) Blood Gas Base Excess 3.0 mmol/L (-2-2) Blood Gas Oxygen Saturation 96 % (90-100) Arterial Blood pH 7.43 (7.380-7.420) Arterial Blood Partial Pressure CO2 41 mmHg (38-42) Arterial Blood Partial Pressure O2 146 mmHg (61-120) Arterial Blood Oxygen Content 17.2 Vol % (12.0-20.0) Arterial Blood Carboxyhemoglobin 1.6 % (0-4) Arterial Blood Methemoglobin 1.2 % (0-2) Blood Gas Hemoglobin 12.5 G/DL (12.0-16.0) Oxygen Delivery Device VENTILATOR Blood Gas Ventilator Setting PRVC/16/400/ Blood Gas Inspired Oxygen 60 % Objective Remarks GENERAL: Intubated. Moving extremities SKIN: Skin /dry. ENT: Orotracheally intubated. NECK: Trachea midline. CARDIOVASCULAR: Remains in atrial fibrillation, rate well controlled in 90 - 110s. Systolic murmur over apex. RESPIRATORY: Few rhonchi. Good air entry at bases. Bilateral chest tubes with trace air leak left this morning. GASTROINTESTINAL: Abdomen Soft, no guarding. BS active. MUSCULOSKELETAL: LIJ central line in place. Limbs well perfused. NEUROLOGICAL: Patient is intubated. Awake, following commands x 4. RASS -1. A/P Assessment and Plan Assessment: 89yF with severe aortic stenosis, course complicated by Pulmonary Artery rupture during right heart catheterization, traumatic pneumothorax secondary to barotrauma, acute hypoxic respiratory failure, MRSA healthcare associated pneumonia, volume overload. remains off pathway and critically ill, although some organ systems improved. still failing CPAP for weakness and apnea. daily SBTs and OOB to stretcher chair daily. NEURO: Encephalopathy, metabolic - resolving. - Precedex to facilitate neuro exam - Daily sedation vacation - Continue to hold home sertraline -CT of the head and C-spine negative for acute injury - Resolved 06/11 RESP: Left lower pulmonary artery rupture with massive hemorrhage Massive hemoptysis Acute hypoxemic respiratory failure MRSA pneumonia Large Left hemothorax s/p IR chest tube placement Bilateral apical pneumothorax Residual L pneumothorax after hemothorax evacuation Bilateral lower extremity DVT - s/p coil and gelfoam closure of Left lower pulmonary artery (peripheral small branch) by Rhoda Corrales and Michaela (see resuscitation note on 06/03/17) - PC/AC mechanical ventilation PEEP of 8, Fio2 down 40% overnight increased to 65%. Chest x-ray shows left lower lobe pneumonia - Chest x-ray confirms pneumonia vs lung infarct. Sputum with MRSA. on vancomycin - s/p chest tube x2 for right pneumothorax on 06/03. New apical chest tube placed 06/06/17 - IR, placed 24 F Left chest tube 06/05 with drainage of 2 L hemothorax, residual pneumothorax present, now resolved - CXR 06/07, resolution of right improving subcutaneous emphysema. Small residual left apical pneumo - s/p Bronchoscopy with removal of blood predominantly from L lung, s/p repeat bronch 06/06 - DuoNeb q 6hours and PRN - Flolan weaned off - Venous duplex -bilateral lower extremity DVT. IV heparin started 06/07/17 therapeutic - continue daily SBTs. still failing for weakness and apnea. - Required re-intubation 06/02 for hypoxemia CV/Heme: Hemorrhagic shock-resolved Bilateral lower extremity DVT Anemia requiring transfusion Severe Aortic Stenosis Atrial fibrillation with RVR Possible history of ITP - IV heparin started 06/07/17 for bilateral lower extremity DVT and atrial fibrillation, watch closely for bloody chest tube output and hemoptysis - Continue home Cardizem CD 120 mg daily. - Cleviprex, when necessary hydralazine (well beta blocked) to keep systolic blood pressure less than 150 - Continue IV Lasix, 20 mg daily. Home metoprolol at 25 mg by mouth every 8 hours. Home dose of digoxin - On Multaq at home. Defer to Dr. Corrales - Received 6 units of emergency release blood, 2 units of FFP and one of platelets 06/03/17. Multiple crystalloid boluses were given, PARVIN normal LV contractility, volume depletion - 2D Echo 06/04 RV LV function look normal, no PFO - Resumed Promacta for ITP - hydralazine 50mg po q8hr and increased losartan to 100mg daily (06/09). now off cleviprex. GI: - OGT tube, IV Protonix. Tube feeds with Jevity. Having regular BMs : - Monitor renal function closely. Payne catheter. Urine output adequate - IV Lasix ID: MRSA pneumonia - Empiric Zosyn and single dose of vancomycin given 06/07, Vanc pharmacy to dose - BAL culture MRSA. Continue vancomycin for full 7 day course. - Reculture sputum ENDO: Hypokalemia Hypomagnesemia - Replace electrolytes per protocol PROPH: - DC SCDs due to DVT. IV Protonix. IV heparin started 06/07 LINES: - Left femoral cordis and central line Dcd 06/04. New LIJ central line placed Overall impression: Required re-intubation for diffusion problem. Air movement was excellent and vigor was good. Consistent with interstitial edema and loss of FRC. Continue daily SBTs, maintain diaphragm strength. She is close to tolerating extubation. Rich Langford MD Jun 12, 2017 06:19
[2017-06-12] MEDS ORDERED: CEFEPIME INJ 2,000 MG in SODIUM CHLORIDE 0.9% INJ 100 ML IV SCH (06:30)
[2017-06-12] MEDS: INSULIN ASPART SUPPLEMENTAL SCALE SQ SCH ×2 (08:00→20:00)
[2017-06-12] MEDS: CHLORHEXIDINE 0.12% (ORAL KIT) 15 ML CUP MT SCH ×2 (08:13→20:00)
[2017-06-12] MEDS: CEFEPIME INJ 2,000 MG in SODIUM CHLORIDE 0.9% INJ 100 ML IV SCH ×2 (08:13→20:28)
[2017-06-12] MEDS: POTASSIUM CHLORIDE 25 MEQ EFFERVESCENT TAB PO SCH ×2 (08:14→20:27)
[2017-06-12] MEDS: DILTIAZEM-CD 120 MG CAP ER PO SCH (08:14)
[2017-06-12] MEDS: DOCUSATE SODIUM 100 MG/10 ML UDC PO SCH ×2 (08:14→20:27)
[2017-06-12] MEDS: DIGOXIN 0.125 MG TAB PO SCH (08:14)
[2017-06-12] MEDS: PANTOPRAZOLE SODIUM 40 MG VIAL IV PUSH SCH ×2 (08:14→20:27)
[2017-06-12] MEDS: LOSARTAN 50 MG TAB PO SCH (08:15)
[2017-06-12] MEDS: FUROSEMIDE 20 MG/2 ML VIAL IV PUSH SCH (08:15)
--- NOTE | 2017-06-12 08:46 | PD.CARD.PN ---
Subjective Subjective Remarks overnight events noted. Re-intubated @7pm with a brief period of hypotension Intubated Opening eyes and moving extremities, following commands On Heparin gtt Fever this AM 100.2 CVP 9-11 Objective Medications Current Medications Medications (Trade) Dose Ordered Sig/Padmini Route Start Time Stop Time Status Last Admin (Peridex 0.12% Liq) 15 ml BID@08,20 MT 06/03/17 20:00 06/12/17 08:13 (Duoneb Neb) 1 ampule Q2HR NEB PRN NEB 06/03/17 19:00 06/12/17 03:33 (Protonix Inj) 40 mg Q12H IV PUSH 06/03/17 20:00 06/12/17 08:14 Potassium Chloride 100 ml @ 50 mls/hr Q2H PRN IV 06/03/17 19:15 06/09/17 08:04 Potassium Chloride 100 ml @ 50 mls/hr Q2H PRN IV 06/03/17 19:15 (K-Lyte Cl Eff) 50 meq UNSCH PRN PO 06/03/17 19:15 Potassium Chloride 100 ml @ 25 mls/hr UNSCH PRN IV 06/03/17 19:15 06/06/17 18:46 Potassium Chloride 100 ml @ 50 mls/hr Q2H PRN IV 06/03/17 19:15 Magnesium Sulfate 4 gm/Sodium Chloride 100 ml @ 50 mls/hr UNSCH PRN IV 06/03/17 19:15 (Mag-Ox) 800 mg UNSCH PRN PO 06/03/17 19:15 Magnesium Sulfate 2 gm/Sodium Chloride 100 ml @ 50 mls/hr UNSCH PRN IV 06/03/17 19:15 06/04/17 16:45 (K-Phos) 2,000 mg Q4H PRN PO 06/03/17 19:15 Sodium Phosphate 30 mmol/Sodium Chloride 250 ml @ 42 mls/hr UNSCH PRN IV 06/03/17 19:15 (K-Phos) 2,000 mg UNSCH PRN PO/TUBE 06/03/17 19:15 Potassium Phosphate 30 mmol/ Sodium Chloride 260 ml @ 42 mls/hr UNSCH PRN IV 06/03/17 19:15 06/07/17 17:00 (D50w (Vial) Inj) 50 ml UNSCH PRN IV PUSH 06/04/17 12:15 (Glucagon Inj) 1 mg UNSCH PRN OTHER 06/04/17 12:15 (Lopressor Inj) 1.25 mg Q6H PRN IV PUSH 06/04/17 19:15 06/06/17 20:29 (Free Water) 250 ml Q6HR OG-TUBE 06/05/17 14:00 06/12/17 05:35 (Colace Liq) 100 mg Q12HR PO 06/05/17 14:00 06/12/17 08:14 (K-Lyte Cl Eff) 25 meq Q12HR PO 06/05/17 14:00 06/12/17 08:14 (Lanoxin) 0.125 mg DAILY PO 06/06/17 09:00 06/12/17 08:14 Dexmedetomidine HCl 200 mcg/ Sodium Chloride 52 ml @ 3.27 mls/hr TITRATE PRN IV 06/07/17 07:00 06/12/17 06:44 (Lasix Inj) 20 mg DAILY IV PUSH 06/07/17 09:00 06/12/17 08:15 (Lopressor) 25 mg Q8HR PO 06/07/17 14:00 06/12/17 05:37 Clevidipine 50 ml @ 2 mls/hr TITRATE PRN IV 06/07/17 07:00 06/09/17 08:02 (Cardizem Cd) 120 mg DAILY PO 06/07/17 09:00 06/12/17 08:14 (Cozaar) 50 mg DAILY PO 06/07/17 09:00 06/11/17 09:09 Pharmacy Profile Note 0 ml @ 0 mls/hr UNSCH OTHER 06/07/17 07:15 (Apresoline Inj) 20 mg Q4H PRN IV PUSH 06/07/17 08:00 06/11/17 17:20 (Synthroid) 50 mcg DAILY@0600 PO 06/07/17 08:00 06/12/17 05:37 (Promacta) 25 mg DAILY@1000 PO 06/08/17 10:00 06/10/17 10:52 Heparin Sodium/ Dextrose 250 ml @ 11 mls/hr TITRATE IV 06/07/17 22:00 06/12/17 03:30 (Heparin Inj) 5,000 units UNSCH PRN IV PUSH 06/07/17 22:00 (Heparin Inj) 2,500 units UNSCH PRN IV PUSH 06/07/17 22:00 (Pill Splitter) 1 ea UNSCH PRN OTHER 06/07/17 22:15 (NovoLOG SUPPLEMENTAL SCALE) 1 BID@0800,2000 SQ 06/08/17 20:00 Vancomycin HCl 1300 mg/Sodium Chloride 513 ml @ 250 mls/hr Q24H IV 06/12/17 21:00 Miscellaneous Information SPECIFIC LAB TO BE [facility]... ONCE ONCE .XX 06/14/17 20:45 06/14/17 20:46 Cefepime HCl 2000 mg/Sodium Chloride 100 ml @ 200 mls/hr Q12H IV 06/12/17 08:00 06/12/17 08:13 Vital Signs / I&O Vital Signs Date Time Temp Pulse Resp B/P (MAP) Pulse Ox O2 Delivery O2 Flow Rate FiO2 06/12/17 07:45 97 40 06/12/17 07:00 112 06/12/17 07:00 100.2 112 21 188/81 (116) 98 06/12/17 07:00 97 Mechanical Ventilator 40 06/12/17 03:53 98 40 06/12/17 03:00 97 Mechanical Ventilator 40 06/12/17 03:00 91 06/12/17 03:00 98.4 91 18 131/49 (76) 97 06/12/17 00:55 99 50 06/11/17 23:00 94 Mechanical Ventilator 50 06/11/17 23:00 88 06/11/17 23:00 98.2 88 18 102/46 (64) 98 06/11/17 22:30 97 50 06/11/17 20:30 98 60 06/11/17 19:21 97 60 06/11/17 19:12 93 40 06/11/17 19:00 97.9 105 16 96/54 (68) 94 06/11/17 19:00 105 06/11/17 19:00 94 Mechanical Ventilator 60 06/11/17 15:00 97.9 86 26 162/75 (104) 98 06/11/17 15:00 86 06/11/17 15:00 96 Non-Rebreather 100 06/11/17 14:25 94 High Flow Nasal Cannula 40.00 100 10/25/17 14:15 88 Nasal Cannula 6 06/11/17 12:13 97 40 06/11/17 12:00 40 06/11/17 11:00 97.7 86 21 105/49 (67) 96 06/11/17 11:00 86 06/11/17 11:00 97 Mechanical Ventilator 40 06/11/17 09:40 97 40 I/O 06/11/17 06/11/17 06/11/17 06/12/17 06/12/17 06/12/17 07:00 15:00 23:00 07:00 15:00 23:00 Intake Total 973 ml 435 ml 200 ml Output Total 784 ml 1385 ml 400 ml Balance 189 ml -950 ml -200 ml IV Total 435 ml Tube Feeding 293 ml Other 680 ml 200 ml Output Urine Total 690 ml 1375 ml 400 ml Chest Tube Drainage Total 94 ml 10 ml 0 ml # Bowel Movements 1 0 0 Physical Exam GENERAL: Intubated, pupils reactive, Alert, awake, oriented SKIN: Warm and dry. HEAD: Normocephalic. EYES: No scleral icterus. No injection or drainage. NECK: Supple, trachea midline. No JVD or lymphadenopathy. CARDIOVASCULAR: Irr Irr 2/6SEM no gallops, or rubs. RESPIRATORY: Vented. GASTROINTESTINAL: Abdomen soft, non-tender, nondistended. EXTREMITIES: No cyanosis, or +edema. Laboratory Laboratory Tests Test 06/11/17 20:14 06/11/17 20:55 06/12/17 04:20 Vancomycin Level Trough 25.5 MCG/ML Blood Gas Puncture Site RT RADIAL Blood Gas Patient Temperature 98.6 Blood Gas HCO3 27 mmol/L Blood Gas Base Excess 3.0 mmol/L Blood Gas Oxygen Saturation 96 % Arterial Blood pH 7.43 Arterial Blood Partial Pressure CO2 41 mmHg Arterial Blood Partial Pressure O2 146 mmHg Arterial Blood Oxygen Content 17.2 Vol % Arterial Blood Carboxyhemoglobin 1.6 % Arterial Blood Methemoglobin 1.2 % Blood Gas Hemoglobin 12.5 G/DL Oxygen Delivery Device VENTILATOR Blood Gas Ventilator Setting PRVC/16/400/ Blood Gas Inspired Oxygen 60 % White Blood Count 32.4 TH/MM3 Red Blood Count 3.83 MIL/MM3 Hemoglobin 10.8 GM/DL Hematocrit 33.1 % Mean Corpuscular Volume 86.3 FL Mean Corpuscular Hemoglobin 28.2 PG Mean Corpuscular Hemoglobin Concent 32.7 % Red Cell Distribution Width 15.6 % Platelet Count 272 TH/MM3 Mean Platelet Volume 8.3 FL CBC Comment AUTO DIFF Differential Total Cells Counted 100 Neutrophils % (Manual) 88 % Band Neutrophils % 4 % Lymphocytes % 3 % Monocytes % 3 % Eosinophils % 1 % Neutrophils # (Manual) 30.1 TH/MM3 Metamyelocytes 1 % Differential Comment FINAL DIFF MANUAL Platelet Estimate NORMAL Platelet Morphology Comment NORMAL Activated Partial Thromboplast Time 86.4 SEC Blood Urea Nitrogen 31 MG/DL Creatinine 0.95 MG/DL Random Glucose 110 MG/DL Total Protein 5.8 GM/DL Albumin 2.0 GM/DL Calcium Level 7.7 MG/DL Magnesium Level 2.1 MG/DL Alkaline Phosphatase 138 U/L Aspartate Amino Transf (AST/SGOT) 32 U/L Alanine Aminotransferase (ALT/SGPT) 34 U/L Total Bilirubin 1.6 MG/DL Sodium Level 139 MEQ/L Potassium Level 4.0 MEQ/L Chloride Level 102 MEQ/L Carbon Dioxide Level 27.7 MEQ/L Anion Gap 9 MEQ/L Estimat Glomerular Filtration Rate 55 ML/MIN Digoxin Level 1.3 NG/ML Imaging Last Impressions Chest X-Ray 06/11/17 Signed Impressions: Service Date/Time: Sunday, June 11, 2017 19:10 - CONCLUSION: Satisfactory ET tube positioning with improved aeration. Tiny bilateral pneumothoraces. Alvin Walls MD Upper Extremity Ultrasound 06/07/17 0000 Signed Impressions: Service Date/Time: Wednesday, June 07, 2017 18:21 - CONCLUSION: 1. Limited exam but no deep venous thrombosis is identified bilaterally. Jamie Corrales MD Lower Extremity Ultrasound 06/07/17 Signed Impressions: Service Date/Time: Wednesday, June 07, 2017 17:57 - CONCLUSION: 1. Positive bilateral lower extremity deep venous thrombosis, nonocclusive as above. Jamie Corrales MD Head CT 06/07/17 0000 Signed Impressions: Service Date/Time: Wednesday, June 07, 2017 17:01 - CONCLUSION: 1. No acute intracranial abnormality. 2. Extensive subcutaneous air tracking up from the chest. Luc Cain Jr., MD Cervical Spine CT 06/07/17 0000 Signed Impressions: Service Date/Time: Wednesday, June 07, 2017 17:01 - CONCLUSION: 1. Extensive subcutaneous emphysema. 2. Tiny left apical pneumothorax. 3. Diffuse mild degenerative changes without central canal stenosis. Multilevel neural foraminal narrowing. 4. Prevertebral soft tissues obscured by an endotracheal tube and nasogastric tube. Luc Cain Jr., MD Chest Tube Insertion 06/05/17 0000 Signed Impressions: Service Date/Time: May 09:15 - CONCLUSION: Uncomplicated chest tube placement as above. Maxwell Aldana MD Chest CT 06/05/17 0000 Signed Impressions: Service Date/Time: May 08:47 - CONCLUSION: 1. Moderate left-sided hemothorax with associated left lower lobe consolidation which may reflect a combination of compressive atelectasis, aspiration, and potentially lung infarction given recent pulmonary artery embolization. 2. Trace right apical pneumothorax with large bore chest tube in the major fissure and smallbore chest tube in the soft tissues. Significant subcutaneous emphysema extending to the cervicothoracic junction bilaterally. 3. Airspace consolidation in the right lower lobe posteriorly may reflect aspiration. Mxawell Aldana MD Embolization 06/03/17 0000 Signed Impressions: Service Date/Time: Saturday, June 03, 2017 00:00 - CONCLUSION: Left pulmonary artery rupture with successful coil embolization of a lower lobe branch vessel as above. Joselo Jennings MD Abdomen X-Ray 06/03/17 0000 Signed Impressions: Service Date/Time: Saturday, June 03, 2017 18:04 - CONCLUSION: Tip of the NG tube appears to be coiled in the stomach. Savana Valdovinos MD Assessment and Plan Problem List: (1) Shock, postoperative ICD Codes: T81.10XA - Postprocedural shock unspecified, initial encounter Status: Resolved Plan: Moving extremities, pupils reactive H&H stable Afib with RVR BP stable Fever and leukocytosis Recommendations: -Avoid electrolytes imbalance -Rate control for afib -Cont Heparin drip (H&H stable) -Broad Antx coverage -ID Consult - Change CVL and Payne -Send for Blood Cultures, CVL tip culture, Urinalysis and Urine culture -Out o bed to chair -PT/OT -Ventilator management per Foot Drill Operator (2) Pulmonary arterial thrombosis ICD Codes: I26.99 - Other pulmonary embolism without acute cor pulmonale Status: Acute (3) CAD (coronary artery disease) ICD Codes: I25.10 - Atherosclerotic heart disease of [place] coronary artery without angina pectoris (4) Aortic stenosis ICD Codes: I35.0 - Nonrheumatic aortic (valve) stenosis Brad Page MD Jun 12, 2017 08:46
[2017-06-12 09:33] LABS: BLOOD, URINE TRACE (NEG); GLUCOSE,URINE NEG (NEG); KETONE, URINE NEG (NEG); NITRITE,URINE NEG (NEG); PH, URINE 5.5 (5.0-8.5); RENAL EPITHELIAL CELLS 1 /hpf; SQUAMOUS EPITHELIAL CELL URINE <1 /hpf (0-5); URINE COLOR YELLOW (YELLW/STRAW)
[2017-06-12 09:34] LABS: COMMENT (UR) CATH-CULTURE IND; CULTURE IF INDICATED CATH CULTURE IND
[2017-06-12] MEDS ORDERED: MIDAZOLAM HCL 5 MG/ML VIAL (1 ML) ONE (10:28)
--- NOTE | 2017-06-12 11:12 | PD.PROCEDR ---
Procedure Note Procedure DX: Respiratory Failure (J96.01) OP: Insertion Right Internal Jugular Central Venous Line ([id number]) Procedure: Time out performed. Right neck prepped and draped. Right internal jugular vein cannulated with ultrasound guidance. Wire easily advanced and catheter passed over wire to 16 cm. Lumens aspirated and flushed. Dressing applied, CXR ordered. Will review. Rich Langford MD Jun 12, 2017 11:12
--- NOTE | 2017-06-12 12:21 | RADRPT ---
EXAM DATE/TIME: 06/12/2017 11:34 [facility] COMPARISON: CHEST SINGLE AP, June 11, 2017, 19:10. INDICATIONS : Evaluate central venous line is in the position MEDICAL HISTORY : Congestive heart failure. Hypertension Carcinoma, colon. Aortic stenosis SURGICAL HISTORY : Splenectomy. Pacemaker ENCOUNTER: Subsequent ACUITY: 2 days PAIN SCORE: Non-responsive. LOCATION: chest FINDINGS: 2 AP supine portable views of the chest were obtained and demonstrate interval placement of a right i nternal jugular central venous line with tip projected over the superior vena cava. There is no pneum othorax. Nasogastric tube is been placed and is seen coursing through the esophagus into the stomach. The endotracheal tube remains in place with the tip 1-2 cm above the mikel. There are bilateral benny st tubes in place. The heart size remains within normal limits. There is hazy opacity remaining at th e left lung base with blunting of the costophrenic angle. Atherosclerotic and are present in the aort a. CONCLUSION: 1. Interval placement of right internal jugular central venous line with no pneumothorax. 2. Placement of nasogastric tube. 3. There is abnormal opacity remains at the left lung base. Pancho Crawford MD on June 12, 2017 at 12:13 Board Certified Radiologist. This report was verified electronically.
[2017-06-12] MEDS ORDERED: MIDAZOLAM HCL 5 MG/5 ML VIAL IV PUSH ONE (12:30)
[2017-06-12] MEDS: NYSTATIN SUSP 500,000 U/5 ML CUP SWISH-SWAL SCH ×3 (12:53→20:27)
[2017-06-12] MEDS: ELTROMBOPAG 50 MG TAB PO SCH (12:53)
--- NOTE | 2017-06-12 18:55 | EKG ---
Date Performed: 06/11/2017 Time Performed: 19:16:42 PTAGE: 89 years EKG: Atrial fibrillation with rapid ventricular response LVH with secondary repolarization abnor mality Extensive ST-T changes may be due to hypertrophy and/or ischemia Since prior tracing there is an increase in the diffuse st segment changes. Clinical correlation is recommended to exclude myocard ial ischemia. Abnormal ECG PREVIOUS TRACING : 06/04/2017 16.49 DOCTOR: Reta Montgomery Interpretating Date/Time 06/12/2017 18:54:00
[2017-06-12] MEDS ORDERED: VANCOMYCIN INJ 1,300 MG in SODIUM CHLORID 0.9% 500 ML INJ 500 ML IV SCH (21:00)
[2017-06-13] VITALS (16 sets, daily range): BP systolic 149–191; BP diastolic 57–92; PULSE 82–114; RESP 16–25; TEMP 98.8–100.8; O2SAT 96–98
[2017-06-13 01:12] LABS: APTT (PATIENT) 54.9 SEC (24.3-30.1)
[2017-06-13] MEDS: DEXMEDETOMIDINE INJ 200 MCG in SODIUM CHLORIDE 0.9% INJ 50 ML IV PRN (01:56)
[2017-06-13] MEDS ORDERED: GUAI1TAB15 PO (03:16)
[2017-06-13] MEDS ORDERED: CENTCHW4 CHEW (03:16)
[2017-06-13] MEDS ORDERED: PANT40TA3 PO (03:16)
[2017-06-13 05:52] LABS: AUTOMATED NEUTROPHIL # 19.5 TH/MM3 (1.8-7.7); BASOPHIL % 0.2 % (0.0-2.0); EOSINOPHIL % 0.1 % (0.0-4.0); HEMATOCRIT 31.7 % (35.0-46.0); HEMO FLAGS DIFF FINAL; LYMPH % 4.5 % (9.0-44.0); MEAN CELL VOLUME 85.6 FL (80.0-100.0); MEAN CORPUSCULAR HEMOGLOBIN 28.3 PG (27.0-34.0); MONO % 6.3 % (0.0-8.0); NEUT % 88.9 % (16.0-70.0); PLATELET COUNT 317 TH/MM3 (150-450); RED BLOOD COUNT 3.71 MIL/MM3 (4.00-5.30); RED CELL DISTRIBUTION WIDTH 15.4 % (11.6-17.2)
[2017-06-13] MEDS: FREE WATER OG-TUBE SCH ×4 (06:00→18:00)
[2017-06-13] MEDS ORDERED: DEXMEDETOMIDINE 200 MCG/50 ML Premix IV PRN (06:15)
[2017-06-13] MEDS: METOPROLOL TARTRATE 25 MG TAB PO SCH ×3 (06:18→22:17)
[2017-06-13] MEDS: LEVOTHYROXINE SODIUM 50 MCG TAB PO SCH (06:18)
[2017-06-13] MEDS: DEXMEDETOMIDINE 200 MCG in NS 48 ML IV PRN ×3 (06:20→21:00)
[2017-06-13 06:27] LABS: BICARBONATE 26.8 MEQ/L (21.0-32.0); POTASSIUM 3.3 MEQ/L (3.5-5.1)
[2017-06-13] MEDS: POTASSIUM CHLOR 20 MEQ PREMIX 100 ML IV PRN ×2 (06:54→08:23)
--- NOTE | 2017-06-13 07:14 | HHI.CCPN ---
Subjective Remarks/Hospital Course I was emergently called to tin can laborer by Dr. Corrales. Ms. Mahoney who is 89 yo female with history of severe aortic stenosis was undergoing left and right heart catheter for TAVR evaluation. With right heart catheterization patient developed acute massive hemoptysis with shock secondary to acute rupture of pulmonary artery. Patient was intubated by Dr. Potter and ETT was advance to Right lung for selective right lung ventilation due to massive hemorrhage from Left lung. On my arrival to tin can laborer, patient was rapidly dropping blood pressure. Dopamine was already started. I ordered Shantanu-Synephrine, at 300 mcg/ m in an attempt to increase MAP and also increase the pulmonary vasoconstriction. Levophed was also added to maintain blood pressure and rapidly titrated up. Emergency release blood initially 3 units was ordered stat along with 2 units of FFP, 1 unit of platelet. I also emergently contacted Dr. Vásquez was in the office. (Dr. Bedoya the on-call CT surgeon was operating). While on Levophed Shantanu-Synephrine and dopamine, patient developed coarse V. fib/V. tach, received brief CPR, and was DC cardioverted 1 with return of spontaneous circulation and sinus rhythm. I discussed with Dr. Corrales and anesthesiologist, I also contacted Dr. Josue from invasive radiology.Dr. Josue immediately arrived to the tin can laborer. Dr. Abdelrahman francis performed PARVIN which showed vigorous LV contraction but cavity was empty. Received Continuous massive fluid resuscitation with multiple crystalloid boluses, bicarbonate and calcium. Blood arrived and initially 3 units of PRBC, 2 units of 1 unit of platelets was given with calcium total 3 g given after blood transfusion. Because of persistent hypotension, additional 2 units of PRBC was given. While I resuscitated the patient, Dr. Corrales and Dr. Jennings performed right heart cath, identified bleeding of a small branch in the left pulmonary artery. They put put in 6 coils in the lower left lower pulmonary artery followed with Gelfoam closing the perforation. 06/04: Emergency chest 2 yesterday for right pneumothorax with hypotension and hypoxia. Remains intubated sedated and on Levophed. FiO2 remains at 100%, Sat improving to 94-95 %. UO adequate overnight. 2-D echo on my review normal LV and RV function, no PFO on bubble study 06/05: Patient is in atrial fibrillation currently on Cardene infusion for blood pressure control. Chest x-ray shows percutaneous emphysema and small apical pneumothorax. Remains on 80% FiO2. I discussed with interventional radiology. We will attempt CT-guided repositioning of the pigtail catheter and possibly upgrading to a larger tube. Urine output adequate 750 mL in 24 hours 06/06: Currently remains in A. fib with rate controlled, hypertensive on Cardizem drip. Oxygen saturation has improved FiO2 now to 40% with saturation 97%. Urine output excellent with Lasix 4.5 L in 24 hours. Chest x-ray today shows 2.5 cm bilateral apical pneumothorax, also left side has 1.2 cm lateral pneumothorax 06/07: Intubated, on low dose propofol for ventilator synchrony. FiO2 40% oxygen saturation 99%. Chest x-ray and labs pending urine output 2.7 L. 3 chest tubes with no air leak. If neuro exam not improving off sedation will check CT of the head. Currently on propofol will recovery coordinator to Precedex to initiate weaning trials. On weaning doses of inhaled Flolan currently on 30, 000 ng 06/08: Remains intubated, mild sedation with Precedex. Overnight FiO2 increased to 65% for hypoxia. CXR left more than right consolidation of lower lobes. Sputum positive for MRSA on vancomycin. Bilateral lower extremity US studies yesterday showed DVT, initiated on IV heparin. Currently therapeutic on heparin. No evidence of pulmonary hemorrhage. Neuro exam is improving weekly follows commands all 4 extremities 06/09: remains intubated. failed CPAP yesterday. on Cleviprex and precedex. fio2 back to 40%. CXR improved aeration with the exception of known LLL. FC x 4. 06/10: failed SBT again for apnea. but much more awake. denies pain. ROS negative. off cleviprex. new air leak in chest tube. will get chest xray to re- eval. 06/11: Warm, well perfused. Alert, cooperative. Communicates with head nod, hand gestures. Comfortable respiratory pattern and acceptable excursions.Air leaks will seal when off positive pressure ventilation. FiO2 to 0.80 last night briefly; now 0.40. I'll come back later today and see if I can get her extubated. 06/12: Required re-intubation for hypoxemic respiratory failure last evening. She is now warm with well perfused fingers and toes. Low dose levophed not hampering peripheral perfusion. Mild prerenal azotemia. CXR with diffuse infiltrates as before. WBC 32,00, afebrile. Must assume colonized lungs at least. Antibiotic coverage is appropriate. Reculture sputum, urine. Progress to weaning trials daily.Hemodynamics appear excellent, rate a minor problem pretty well controlled. Continue Vanc. Stop pip/roxi, start cefepime. Narrow after cultures. Change CVLs, draw blood cultures. 06/13: Persistent leukocytosis, Tmax 100.2. O2 diffusion acceptable on positive pressure ventilation. Sputum culture pending. Remains warm and well perfused. Continue daily spontaneous breathing trials. Objective Vital Signs Date Time Temp Pulse Resp B/P (MAP) Pulse Ox O2 Delivery O2 Flow Rate FiO2 06/13/17 03:50 98 40 06/13/17 03:45 Mechanical Ventilator 06/13/17 03:45 98.8 83 18 157/76 (103) 06/11/17 14:25 40.00 Intake and Output 06/13/17 06/13/17 06/14/17 08:00 16:00 00:00 Intake Total 1437 ml Output Total 836 ml Balance 601 ml Result Diagram: 06/13/1720 06/13/17519 Objective Remarks GENERAL: Intubated. Alert. Moving extremities with purpose. SKIN: Skin /dry. ENT: Orotracheally intubated. NECK: Trachea midline. Supple. CARDIOVASCULAR: Remains in atrial fibrillation, rate well controlled in 90 - 110s. Systolic murmur over apex. RESPIRATORY: Diffuse sonorous rhonchi. Good air entry at bases. Bilateral chest tubes with intermittent air leak left side. GASTROINTESTINAL: Abdomen Soft, no guarding. BS active. MUSCULOSKELETAL: New right IJ CVL. Limbs well perfused. NEUROLOGICAL: Patient is intubated. Awake, following commands x 4. RASS -1. A/P Assessment and Plan Assessment: 89yF with severe aortic stenosis, course complicated by Pulmonary Artery rupture during right heart catheterization, traumatic pneumothorax secondary to barotrauma, acute hypoxic respiratory failure, MRSA healthcare associated pneumonia, volume overload. remains off pathway and critically ill, although some organ systems improved. failed extubation 2 days ago. daily SBTs and OOB to stretcher chair daily. NEURO: Encephalopathy, metabolic - resolving. - Precedex to facilitate neuro exam - Daily sedation vacation - Continue to hold home sertraline -CT of the head and C-spine negative for acute injury - Resolved 06/11 RESP: Left lower pulmonary artery rupture with massive hemorrhage Massive hemoptysis Acute hypoxemic respiratory failure MRSA pneumonia Large Left hemothorax s/p IR chest tube placement Bilateral apical pneumothorax Residual L pneumothorax after hemothorax evacuation Bilateral lower extremity DVT - s/p coil and gelfoam closure of Left lower pulmonary artery (peripheral small branch) by Rhoda Corrales and Michaela (see resuscitation note on 06/03/17) - PC/AC mechanical ventilation PEEP of 8, Fio2 down 40% overnight increased to 65%. Chest x-ray shows left lower lobe pneumonia - Chest x-ray confirms pneumonia vs lung infarct. Sputum with MRSA. on vancomycin - s/p chest tube x2 for right pneumothorax on 06/03. New apical chest tube placed 06/06/17 - IR, placed 24 F Left chest tube 06/05 with drainage of 2 L hemothorax, residual pneumothorax present, now resolved - CXR 06/07, resolution of right improving subcutaneous emphysema. Small residual left apical pneumo - s/p Bronchoscopy with removal of blood predominantly from L lung, s/p repeat bronch 06/06 - DuoNeb q 6hours and PRN - Flolan weaned off - Venous duplex -bilateral lower extremity DVT. IV heparin started 06/07/17 therapeutic - continue daily SBTs. still failing for weakness and apnea. - Required re-intubation 06/02 for hypoxemia CV/Heme: Hemorrhagic shock-resolved Bilateral lower extremity DVT Anemia requiring transfusion Severe Aortic Stenosis Atrial fibrillation with RVR Possible history of ITP - IV heparin started 06/07/17 for bilateral lower extremity DVT and atrial fibrillation, watch closely for bloody chest tube output and hemoptysis - Continue home Cardizem CD 120 mg daily. - Cleviprex, when necessary hydralazine (well beta blocked) to keep systolic blood pressure less than 150 - Continue IV Lasix, 20 mg daily. Home metoprolol at 25 mg by mouth every 8 hours. Home dose of digoxin - On Multaq at home. Defer to Dr. Corrales - Received 6 units of emergency release blood, 2 units of FFP and one of platelets 06/03/17. Multiple crystalloid boluses were given, PARVIN normal LV contractility, volume depletion - 2D Echo 06/04 RV LV function look normal, no PFO - Resumed Promacta for ITP - hydralazine 50mg po q8hr and increased losartan to 100mg daily (06/09). now off cleviprex. GI: - OGT tube, IV Protonix. Tube feeds with Jevity. Having regular BMs : - Monitor renal function closely. Payne catheter. Urine output adequate - IV Lasix ID: MRSA pneumonia - Empiric Zosyn and single dose of vancomycin given 06/07, Vanc pharmacy to dose -> D/C pip/roxi, add cefepime for new fever, leukocytosis - BAL culture MRSA. Continue vancomycin - Reculture sputum, blood, urine ENDO: Hypokalemia Hypomagnesemia - Replace electrolytes per protocol PROPH: - DC SCDs due to DVT. IV Protonix. IV heparin started 06/07 LINES: - Left femoral cordis and central line Dcd 06/04. New LIJ central line placed Overall impression: Required re-intubation for diffusion problem. Air movement was excellent and vigor was good. Consistent with interstitial edema and loss of FRC. Continue daily SBTs, maintain diaphragm strength. She is close to tolerating extubation. Need ID consult to help us narrow coverage, avoid resistance. Rich Langford MD Jun 13, 2017 07:14
[2017-06-13] MEDS: CHLORHEXIDINE 0.12% (ORAL KIT) 15 ML CUP MT SCH ×2 (08:00→20:00)
--- NOTE | 2017-06-13 08:11 | PD.CARD.PN ---
Subjective Subjective Remarks overnight events noted. Re-intubated @7pm with a brief period of hypotension Intubated Opening eyes and moving extremities, following commands On Heparin gtt Fever this AM 100.2 CVP 9-11 Objective Medications Current Medications Medications (Trade) Dose Ordered Sig/Padmini Route Start Time Stop Time Status Last Admin (Peridex 0.12% Liq) 15 ml BID@08,20 MT 06/03/17 20:00 06/12/17 20:00 (Duoneb Neb) 1 ampule Q2HR NEB PRN NEB 06/03/17 19:00 06/12/17 03:33 (Protonix Inj) 40 mg Q12H IV PUSH 06/03/17 20:00 06/12/17 20:27 Potassium Chloride 100 ml @ 50 mls/hr Q2H PRN IV 06/03/17 19:15 06/09/17 08:04 Potassium Chloride 100 ml @ 50 mls/hr Q2H PRN IV 06/03/17 19:15 (K-Lyte Cl Eff) 50 meq UNSCH PRN PO 06/03/17 19:15 Potassium Chloride 100 ml @ 25 mls/hr UNSCH PRN IV 06/03/17 19:15 06/06/17 18:46 Potassium Chloride 100 ml @ 50 mls/hr Q2H PRN IV 06/03/17 19:15 06/13/17 06:54 Magnesium Sulfate 4 gm/Sodium Chloride 100 ml @ 50 mls/hr UNSCH PRN IV 06/03/17 19:15 (Mag-Ox) 800 mg UNSCH PRN PO 06/03/17 19:15 Magnesium Sulfate 2 gm/Sodium Chloride 100 ml @ 50 mls/hr UNSCH PRN IV 06/03/17 19:15 06/04/17 16:45 (K-Phos) 2,000 mg Q4H PRN PO 06/03/17 19:15 Sodium Phosphate 30 mmol/Sodium Chloride 250 ml @ 42 mls/hr UNSCH PRN IV 06/03/17 19:15 (K-Phos) 2,000 mg UNSCH PRN PO/TUBE 06/03/17 19:15 Potassium Phosphate 30 mmol/ Sodium Chloride 260 ml @ 42 mls/hr UNSCH PRN IV 06/03/17 19:15 06/07/17 17:00 (D50w (Vial) Inj) 50 ml UNSCH PRN IV PUSH 06/04/17 12:15 (Glucagon Inj) 1 mg UNSCH PRN OTHER 06/04/17 12:15 (Lopressor Inj) 1.25 mg Q6H PRN IV PUSH 06/04/17 19:15 06/06/17 20:29 (Free Water) 250 ml Q6HR OG-TUBE 06/05/17 14:00 06/13/17 06:00 (Colace Liq) 100 mg Q12HR PO 06/05/17 14:00 06/12/17 20:27 (K-Lyte Cl Eff) 25 meq Q12HR PO 06/05/17 14:00 06/12/17 20:27 (Lanoxin) 0.125 mg DAILY PO 06/06/17 09:00 06/12/17 08:14 (Lasix Inj) 20 mg DAILY IV PUSH 06/07/17 09:00 06/12/17 08:15 (Lopressor) 25 mg Q8HR PO 06/07/17 14:00 06/13/17 06:18 Clevidipine 50 ml @ 2 mls/hr TITRATE PRN IV 06/07/17 07:00 06/09/17 08:02 (Cardizem Cd) 120 mg DAILY PO 06/07/17 09:00 06/12/17 08:14 (Cozaar) 50 mg DAILY PO 06/07/17 09:00 06/11/17 09:09 Pharmacy Profile Note 0 ml @ 0 mls/hr UNSCH OTHER 06/07/17 07:15 (Apresoline Inj) 20 mg Q4H PRN IV PUSH 06/07/17 08:00 06/11/17 17:20 (Synthroid) 50 mcg DAILY@0600 PO 06/07/17 08:00 06/13/17 06:18 (Promacta) 25 mg DAILY@1000 PO 06/08/17 10:00 06/12/17 12:53 Heparin Sodium/ Dextrose 250 ml @ 11 mls/hr TITRATE IV 06/07/17 22:00 06/12/17 18:24 (Heparin Inj) 5,000 units UNSCH PRN IV PUSH 06/07/17 22:00 (Heparin Inj) 2,500 units UNSCH PRN IV PUSH 06/07/17 22:00 (Pill Splitter) 1 ea UNSCH PRN OTHER 06/07/17 22:15 (NovoLOG SUPPLEMENTAL SCALE) 1 BID@0800,2000 SQ 06/08/17 20:00 Vancomycin HCl 1300 mg/Sodium Chloride 513 ml @ 250 mls/hr Q24H IV 06/12/17 21:00 Future Hold Miscellaneous Information SPECIFIC LAB TO BE [facility]... ONCE ONCE .XX 06/14/17 20:45 06/14/17 20:46 Cefepime HCl 2000 mg/Sodium Chloride 100 ml @ 200 mls/hr Q12H IV 06/12/17 08:00 06/12/17 20:28 (Mycostatin Liq) 5 ml QID SWISH-SWAL 06/12/17 13:00 06/12/17 20:27 Dexmedetomidine HCl 200 mcg/ Sodium Chloride 50 ml @ 3.1 mls/hr TITRATE PRN IV 06/13/17 06:15 06/13/17 06:20 Vital Signs / I&O Vital Signs Date Time Temp Pulse Resp B/P (MAP) Pulse Ox O2 Delivery O2 Flow Rate FiO2 06/13/17 07:25 98 40 06/13/17 03:50 98 40 06/13/17 03:45 97 Mechanical Ventilator 40 06/13/17 03:45 98.8 83 18 157/76 (103) 98 06/13/17 03:18 91 06/13/17 00:55 98 40 06/12/17 23:14 97 Mechanical Ventilator 40 06/12/17 23:14 100.2 78 17 121/50 (73) 97 06/12/17 23:00 75 06/12/17 22:15 97 40 06/12/17 20:35 97 40 06/12/17 20:03 97 Mechanical Ventilator 40 06/12/17 20:03 98.9 103 20 136/63 (87) 97 06/12/17 19:00 86 06/12/17 16:25 95 40 06/12/17 15:00 100.0 64 178/70 (106) 06/12/17 15:00 96 Mechanical Ventilator 40 06/12/17 15:00 64 06/12/17 11:40 98 40 06/12/17 11:00 82 06/12/17 11:00 99.6 82 17 106/47 (66) 97 06/12/17 11:00 97 Mechanical Ventilator 40 I/O 06/12/17 06/12/17 06/12/17 06/13/17 06/13/17 06/13/17 07:00 15:00 23:00 07:00 15:00 23:00 Intake Total 200 ml 87 ml 727 ml 1437 ml Output Total 400 ml 1215 ml 836 ml Balance -200 ml 87 ml -488 ml 601 ml IV Total 87 ml 192 ml 292 ml Tube Feeding 135 ml 465 ml Tube Irrigant 200 ml Other 200 ml 400 ml 480 ml Output Urine Total 400 ml 1145 ml 610 ml Chest Tube Drainage Total 0 ml 70 ml 226 ml # Bowel Movements 0 Physical Exam GENERAL: Intubated, pupils reactive, Alert, awake, oriented SKIN: Warm and dry. HEAD: Normocephalic. EYES: No scleral icterus. No injection or drainage. NECK: Supple, trachea midline. No JVD or lymphadenopathy. CARDIOVASCULAR: Irr Irr 2/6SEM no gallops, or rubs. RESPIRATORY: Vented. GASTROINTESTINAL: Abdomen soft, non-tender, nondistended. EXTREMITIES: No cyanosis, or +edema. Laboratory Laboratory Tests Test 06/12/17 08:20 06/13/17 00:14 06/13/17 05:20 Urine Color YELLOW Urine Turbidity HAZY Urine pH 5.5 Urine Specific [place] 1.026 Urine Protein 30 mg/dL Urine Glucose (UA) NEG mg/dL Urine Ketones NEG mg/dL Urine Occult Blood TRACE Urine Nitrite NEG Urine Bilirubin NEG Urine Urobilinogen LESS THAN 2.0 MG/DL Urine Leukocyte Esterase SMALL Urine RBC 6 /hpf Urine WBC 8 /hpf Urine Squamous Epithelial Cells <1 /hpf Urine Renal Epithelial Cells 1 /hpf Urine Yeast with Hyphae MANY Urine Yeast (Budding) MANY Microscopic Urinalysis Comment CATH-CULTURE IND Activated Partial Thromboplast Time 54.9 SEC 47.0 SEC White Blood Count 22.0 TH/MM3 Red Blood Count 3.71 MIL/MM3 Hemoglobin 10.5 GM/DL Hematocrit 31.7 % Mean Corpuscular Volume 85.6 FL Mean Corpuscular Hemoglobin 28.3 PG Mean Corpuscular Hemoglobin Concent 33.0 % Red Cell Distribution Width 15.4 % Platelet Count 317 TH/MM3 Mean Platelet Volume 8.4 FL Neutrophils (%) (Auto) 88.9 % Lymphocytes (%) (Auto) 4.5 % Monocytes (%) (Auto) 6.3 % Eosinophils (%) (Auto) 0.1 % Basophils (%) (Auto) 0.2 % Neutrophils # (Auto) 19.5 TH/MM3 Lymphocytes # (Auto) 1.0 TH/MM3 Monocytes # (Auto) 1.4 TH/MM3 Eosinophils # (Auto) 0.0 TH/MM3 Basophils # (Auto) 0.0 TH/MM3 CBC Comment DIFF FINAL Differential Comment Blood Urea Nitrogen 27 MG/DL Creatinine 0.82 MG/DL Random Glucose 149 MG/DL Calcium Level 8.4 MG/DL Sodium Level 138 MEQ/L Potassium Level 3.3 MEQ/L Chloride Level 101 MEQ/L Carbon Dioxide Level 26.8 MEQ/L Anion Gap 10 MEQ/L Estimat Glomerular Filtration Rate 66 ML/MIN Random Vancomycin Level 20.8 COMMENT Assessment and Plan Problem List: (1) Shock, postoperative ICD Codes: T81.10XA - Postprocedural shock unspecified, initial encounter Status: Resolved Plan: Moving extremities, pupils reactive H&H stable Afib with RVR BP stable Fever and leukocytosis Recommendations: -Avoid electrolytes imbalance -Rate control for afib -Cont Heparin drip (H&H stable) - Appreciate ID recs. Started on IV Linezolid - No growth on Cultures -Out o bed to chair -PT/OT -Ventilator management per [employer] Case discuss with [employer] and Family (2) Pulmonary arterial thrombosis ICD Codes: I26.99 - Other pulmonary embolism without acute cor pulmonale Status: Acute (3) CAD (coronary artery disease) ICD Codes: I25.10 - Atherosclerotic heart disease of [place] coronary artery without angina pectoris (4) Aortic stenosis ICD Codes: I35.0 - Nonrheumatic aortic (valve) stenosis Brad Page MD Jun 13, 2017 08:11
[2017-06-13 09:15] LABS: MAGNESIUM 2.3 MG/DL (1.5-2.5)
[2017-06-13 09:16] LABS: INDIRECT BILIRUBIN 0.7 MG/DL (0.0-0.8); TOTAL BILIRUBIN ADULT 1.3 MG/DL (0.2-1.0)
--- NOTE | 2017-06-13 09:41 | RADRPT ---
EXAM DATE/TIME: 06/13/2017 08:48 [facility] COMPARISON: CHEST SINGLE AP, June 12, 2017, 11:34. INDICATIONS : Shortness of breath. MEDICAL HISTORY : Congestive heart failure. Hypertension Carcinoma, colon. Aortic stenosis SURGICAL HISTORY : Pacemaker. ENCOUNTER: Initial ACUITY: 2 weeks PAIN SCORE: Non-responsive. LOCATION: Bilateral chest FINDINGS: A single view of the chest demonstrates a small bore [place] loop thoracostomy tube on the right with a larger catheter on the left. No pneumothorax. Persistent left basilar consolidation/effusion. Right b asilar airspace disease laterally with a probable small associated effusions also stable. Embolic coi ls project over the left hilum. Heart size is borderline prominent but well compensated. Dense calcif ication of the mitral valve annulus. In addition to the thoracostomy tubes, does a right IJ central venous catheter, endotracheal tube and nasogastric tube all of which are stable in position. The endotracheal tube is appropriate position above the mikel. Osseous structures are intact with some degenerative spurring in the dorsal spine. Left subclavian bipolar pacer is also intact. CONCLUSION: 1. Basically stable appearance of the chest with dense left basilar consolidation/effusion. Small are a of airspace disease predominantly laterally in the right chest with probable associated small effus ion. 2. Heart size is borderline below compensated. 3. Stable position of life support tubes. No pneumothorax. Joselo Jennings MD on June 13, 2017 at 9:35 Board Certified Radiologist. This report was verified electronically.
[2017-06-13] MEDS: CEFEPIME INJ 2,000 MG in SODIUM CHLORIDE 0.9% INJ 100 ML IV SCH (09:49)
[2017-06-13] MEDS: INSULIN ASPART SUPPLEMENTAL SCALE SQ SCH ×2 (09:50→22:18)
[2017-06-13] MEDS: PANTOPRAZOLE SODIUM 40 MG VIAL IV PUSH SCH ×2 (09:51→22:17)
[2017-06-13] MEDS: NYSTATIN SUSP 500,000 U/5 ML CUP SWISH-SWAL SCH ×4 (09:52→22:17)
[2017-06-13] MEDS: POTASSIUM CHLORIDE 25 MEQ EFFERVESCENT TAB PO SCH ×2 (09:52→22:16)
[2017-06-13] MEDS: DOCUSATE SODIUM 100 MG/10 ML UDC PO SCH ×2 (09:52→21:00)
[2017-06-13] MEDS: DIGOXIN 0.125 MG TAB PO SCH (09:53)
[2017-06-13] MEDS: FUROSEMIDE 20 MG/2 ML VIAL IV PUSH SCH (09:54)
[2017-06-13] MEDS: ELTROMBOPAG 50 MG TAB PO SCH (09:54)
[2017-06-13] MEDS: LOSARTAN 50 MG TAB PO SCH (09:54)
[2017-06-13] MEDS: DILTIAZEM HCL 60 MG TAB PO SCH ×2 (12:00→18:59)
[2017-06-13] MEDS: POTASSIUM PHOSPHATE INJ 30 MMOL in SODIUM CHLOR 0.9% 250 ML INJ 250 ML IV PRN (12:03)
--- NOTE | 2017-06-13 12:59 | RADRPT ---
EXAM DATE/TIME: 06/13/2017 11:56 [facility] COMPARISON: CHEST SINGLE AP, June 13, 2017, 8:48. INDICATIONS : Pneumothorax. MEDICAL HISTORY : Congestive hearrt failure. Hypertension. Carcinoma, colon. Aortic stenosis SURGICAL HISTORY : Cardiac cath. Pacemaker. Tonsillectomy ENCOUNTER: Subsequent ACUITY: 1 week PAIN SCORE: Non-responsive. LOCATION: Bilateral chest FINDINGS: A single portable frontal view the chest shows interval removal of the large caliber chest tube on th e left. No pneumothorax. Small caliber chest tube remains on the right. Right-sided central line. Tip of the endotracheal tube 1 cm from the mikel. Nasogastric tube coursing off the anterior margin of the film. Pacing device in the left. Embolization coils overlying the left inferior hilum. This obscu res the left costophrenic angle. A tiny right effusion is noted. Bibasilar consolidations affecting t he left greater degree than the right. Mild cardiomegaly. CONCLUSION: No pneumothorax following left chest tube removal. Persistent bibasilar densities. Luc Cain Jr., MD on June 13, 2017 at 12:51 Board Certified Radiologist. This report was verified electronically.
[2017-06-13] MEDS: hydrALAZINE HCL 20 MG/ML VIAL IV PUSH PRN (14:26)
--- NOTE | 2017-06-13 18:17 | PD.ID.CON ---
History of Present Illness Service ID Consult Requested By Reason for Consult Evaluation and Mment of MRSA pneumonia and persistent high grade leucocytosis. Primary Care Physician Jamie Funk MD Diagnoses: History of Present Illness Ms. Mahoney who is 89 yo female with history of severe aortic stenosis who was undergoing left and right heart catheter for TAVR evaluation. With right heart catheterization patient developed acute massive hemoptysis with shock secondary to acute rupture of pulmonary artery. Patient was intubated by Dr. Potter and ETT was advance to Right lung for selective right lung ventilation due to massive hemorrhage from Left lung. While on Levophed Shantanu-Synephrine and dopamine , patient developed coarse V. fib/V. tach, received brief CPR, and was DC cardioverted 1 with return of spontaneous circulation and sinus rhythm. A PARVIN was performed which showed vigorous LV contraction but cavity was empty. Patient received continuous massive fluid resuscitation with multiple crystalloid boluses, bicarbonate and calcium. Patient needed resuscitation and blood products were instilled. Dr. Jennings performed right heart cath, identified bleeding of a small branch in the left pulmonary artery. They put put in 6 coils in the lower left lower pulmonary artery followed with Gelfoam closing the perforation. Other pertinent events in ICU stay: 06/04: Emergency chest 2 yesterday for right pneumothorax with hypotension and hypoxia. 06/05: Patient was in Atrial fibrillation currently on Cardene infusion for blood pressure control. Chest x-ray shows percutaneous emphysema and small apical pneumothorax. 06/08: Overnight FiO2 increased to 65% for hypoxia. CXR left more than right consolidation of lower lobes. Sputum positive for MRSA on vancomycin. Bilateral lower extremity US studies showed DVT, initiated on IV heparin. 06/11: Extubated. Required re-intubation for hypoxemic respiratory failure on . 06/13: Persistent leukocytosis, Tmax 100.2. At the time of my evaluation, pt is in the CCU on ventilator CPAP trials being attempted. UO good. Has CTs in place. Not on pressors. Opens eyes follows commands, writes on a note pad. Due to new fever and WBC elevation ID was consulted. Avilez cultures obtained earlier. Review of Systems ROS Limitations: Intubated Past Family Social History Allergies: Coded Allergies: Sulfa (Sulfonamide Antibiotics) (Unverified Allergy, Severe, 06/03/17) promethazine (Unverified Allergy, Severe, 06/03/17) adhesive (Unverified Allergy, Unknown, 06/03/17) Past Medical History Hypertension Coronary artery disease Paroxysmal atrial fibrillation ITP Anemia Aortic stenosis severe Hypercholesterolemia Hypothyroidism Malignant colonic neoplasm Right hearing loss Past Surgical History Pacemaker insertion January 29, 2013 Tonsillectomy Hernia Cataract PTCA Partial colectomy in 1999 Reported Medications I attest I reviewed, obtained or updated the patient's home medications and current medications for name, dose, frequency, relative administration. Reported Meds & Active Scripts Active Reported Centrum (Multiple Vitamins W/ Minerals) 1 Chew 1 Tab CHEW DAILY Pantoprazole (Pantoprazole Sodium) 40 Mg Tab 40 Mg PO DAILY Eq Mucus ER (Guaifenesin) 600 Mg Tab 600 Mg PO DAILY Warfarin 4 Mg Tab 4 Mg PO DAILY Sertraline (Sertraline HCl) 25 Mg Tab 25 Mg PO DAILY Promacta (Eltrombopag) 75 Mg Tab 50 Mg PO DAILY Potassium Chloride ER (Potassium Chloride) 10 Meq Cap 10 Meq PO DAILY MDD 20 Take 2 capsules Multaq (Dronedarone) 400 Mg Tab 400 Mg PO BID Metoprolol Tartrate 50 Mg Tab 50 Mg PO DAILY Losartan (Losartan Potassium) 50 Mg Tab 50 Mg PO DAILY Lipitor (Atorvastatin Calcium) 10 Mg Tab 10 Mg PO HS Levothyroxine (Levothyroxine Sodium) 50 Mcg Tab 50 Mcg PO DAILY Furosemide 20 Mg Tab 20 Mg PO DAILY Digox (Digoxin) 0.125 Mg Tab 0.125 Mg PO DAILY Folic Acid 0.4 Mg Tab 1 Mg PO DAILY Cardizem CD 24 HR (Diltiazem CD 24 HR) 120 Mg Caper 120 Mg PO DAILY Active Ordered Medications Current Medications Medications (Trade) Dose Ordered Sig/Padmini Route Start Time Stop Time Status Last Admin (Peridex 0.12% Liq) 15 ml BID@08,20 MT 06/03/17 20:00 06/13/17 08:00 (Duoneb Neb) 1 ampule Q2HR NEB PRN NEB 06/03/17 19:00 06/12/17 03:33 (Protonix Inj) 40 mg Q12H IV PUSH 06/03/17 20:00 06/13/17 09:51 Potassium Chloride 100 ml @ 50 mls/hr Q2H PRN IV 06/03/17 19:15 06/09/17 08:04 Potassium Chloride 100 ml @ 50 mls/hr Q2H PRN IV 06/03/17 19:15 (K-Lyte Cl Eff) 50 meq UNSCH PRN PO 06/03/17 19:15 Potassium Chloride 100 ml @ 25 mls/hr UNSCH PRN IV 06/03/17 19:15 06/06/17 18:46 Potassium Chloride 100 ml @ 50 mls/hr Q2H PRN IV 06/03/17 19:15 06/13/17 08:23 Magnesium Sulfate 4 gm/Sodium Chloride 100 ml @ 50 mls/hr UNSCH PRN IV 06/03/17 19:15 (Mag-Ox) 800 mg UNSCH PRN PO 06/03/17 19:15 Magnesium Sulfate 2 gm/Sodium Chloride 100 ml @ 50 mls/hr UNSCH PRN IV 06/03/17 19:15 06/04/17 16:45 (K-Phos) 2,000 mg Q4H PRN PO 06/03/17 19:15 Sodium Phosphate 30 mmol/Sodium Chloride 250 ml @ 42 mls/hr UNSCH PRN IV 06/03/17 19:15 (K-Phos) 2,000 mg UNSCH PRN PO/TUBE 06/03/17 19:15 Potassium Phosphate 30 mmol/ Sodium Chloride 260 ml @ 42 mls/hr UNSCH PRN IV 06/03/17 19:15 06/13/17 12:03 (D50w (Vial) Inj) 50 ml UNSCH PRN IV PUSH 06/04/17 12:15 (Glucagon Inj) 1 mg UNSCH PRN OTHER 06/04/17 12:15 (Lopressor Inj) 1.25 mg Q6H PRN IV PUSH 06/04/17 19:15 06/06/17 20:29 (Free Water) 250 ml Q6HR OG-TUBE 06/05/17 14:00 06/13/17 18:00 (Colace Liq) 100 mg Q12HR PO 06/05/17 14:00 06/13/17 09:52 (K-Lyte Cl Eff) 25 meq Q12HR PO 06/05/17 14:00 06/13/17 09:52 (Lanoxin) 0.125 mg DAILY PO 06/06/17 09:00 06/13/17 09:53 (Lasix Inj) 20 mg DAILY IV PUSH 06/07/17 09:00 06/13/17 09:54 (Lopressor) 25 mg Q8HR PO 06/07/17 14:00 06/13/17 13:19 Clevidipine 50 ml @ 2 mls/hr TITRATE PRN IV 06/07/17 07:00 06/09/17 08:02 (Cozaar) 50 mg DAILY PO 06/07/17 09:00 06/13/17 09:54 (Apresoline Inj) 20 mg Q4H PRN IV PUSH 06/07/17 08:00 06/13/17 14:26 (Synthroid) 50 mcg DAILY@0600 PO 06/07/17 08:00 06/13/17 06:18 (Promacta) 25 mg DAILY@1000 PO 06/08/17 10:00 06/13/17 09:54 Heparin Sodium/ Dextrose 250 ml @ 11 mls/hr TITRATE IV 06/07/17 22:00 06/13/17 19:19 (Heparin Inj) 5,000 units UNSCH PRN IV PUSH 06/07/17 22:00 (Heparin Inj) 2,500 units UNSCH PRN IV PUSH 06/07/17 22:00 (Pill Splitter) 1 ea UNSCH PRN OTHER 06/07/17 22:15 (NovoLOG SUPPLEMENTAL SCALE) 1 BID@0800,2000 SQ 06/08/17 20:00 06/13/17 09:50 (Mycostatin Liq) 5 ml QID SWISH-SWAL 06/12/17 13:00 06/13/17 18:59 Dexmedetomidine HCl 200 mcg/ Sodium Chloride 50 ml @ 3.1 mls/hr TITRATE PRN IV 06/13/17 06:15 06/13/17 09:58 (Cardizem) 60 mg Q6HR PO 06/13/17 12:00 06/13/17 18:59 Fluconazole/ Sodium Chloride 100 ml @ 100 mls/hr Q24H IV 06/13/17 19:00 Linezolid 300 ml @ 300 mls/hr Q12H IV 06/13/17 19:00 06/13/17 19:00 Family History Mother had coronary artery disease Father leukemia Social History Used to smoke in the past could not obtain quantification as patient is intubated. No alcohol No illicit drug abuse Lives with her Patient has 3 grownup sons 2 of which are twins Physical Exam Vital Signs Vital Signs Date Time Temp Pulse Resp B/P (MAP) Pulse Ox O2 Delivery O2 Flow Rate FiO2 06/13/17 15:00 114 06/13/17 15:00 99.2 114 16 187/82 (117) 97 06/13/17 15:00 97 Mechanical Ventilator 40 06/13/17 13:34 98 40 06/13/17 11:00 94 06/13/17 11:00 100.8 96 16 191/92 (125) 97 06/13/17 11:00 97 Mechanical Ventilator 40 06/13/17 09:25 96 40 06/13/17 08:00 99.5 82 16 168/76 (106) 97 06/13/17 08:00 82 06/13/17 08:00 97 Mechanical Ventilator 40 06/13/17 08:00 40 06/13/17 07:25 98 40 06/13/17 03:50 98 40 06/13/17 03:45 97 Mechanical Ventilator 40 06/13/17 03:45 98.8 83 18 157/76 (103) 98 06/13/17 03:18 91 06/13/17 00:55 98 40 06/12/17 23:14 97 Mechanical Ventilator 40 06/12/17 23:14 100.2 78 17 121/50 (73) 97 06/12/17 23:00 75 06/12/17 22:15 97 40 06/12/17 20:35 97 40 06/12/17 20:03 97 Mechanical Ventilator 40 06/12/17 20:03 98.9 103 20 136/63 (87) 97 06/12/17 19:00 86 Physical Exam GENERAL: This is a well-nourished, well-developed patient, in no apparent distress. SKIN: No rashes, ecchymoses or lesions. Cool and dry. HEAD: Atraumatic. Normocephalic. No temporal or scalp tenderness. EYES: Pupils equal round and reactive. Extraocular motions intact. No scleral icterus. No injection or drainage. ENT: Intubated. NECK: Trachea midline. Supple, nontender, no meningeal signs. CARDIOVASCULAR: Murmur appreciated. RESPIRATORY: Clear to auscultation. Breath sounds diminished on the left side. Chest tube insertion sites with no evidence of infection. GASTROINTESTINAL: Abdomen soft, non-tender, nondistended. MUSCULOSKELETAL: Extremities without clubbing, cyanosis, or edema. No joint tenderness, effusion, or edema noted. No calf tenderness. Negative Homans sign bilaterally. NEUROLOGICAL: Awake and alert. Nonfocal. Follows commands moves all 4 extremities. Psych cooperative IV line sites with no evidence of infection. Laboratory Laboratory Tests Test 06/13/17 00:14 06/13/17 05:20 06/13/17 08:36 Activated Partial Thromboplast Time 54.9 47.0 White Blood Count 22.0 Red Blood Count 3.71 Hemoglobin 10.5 Hematocrit 31.7 Mean Corpuscular Volume 85.6 Mean Corpuscular Hemoglobin 28.3 Mean Corpuscular Hemoglobin Concent 33.0 Red Cell Distribution Width 15.4 Platelet Count 317 Mean Platelet Volume 8.4 Neutrophils (%) (Auto) 88.9 Lymphocytes (%) (Auto) 4.5 Monocytes (%) (Auto) 6.3 Eosinophils (%) (Auto) 0.1 Basophils (%) (Auto) 0.2 Neutrophils # (Auto) 19.5 Lymphocytes # (Auto) 1.0 Monocytes # (Auto) 1.4 Eosinophils # (Auto) 0.0 Basophils # (Auto) 0.0 CBC Comment DIFF FINAL Differential Comment Blood Urea Nitrogen 27 Creatinine 0.82 Random Glucose 149 Calcium Level 8.4 Sodium Level 138 Potassium Level 3.3 Chloride Level 101 Carbon Dioxide Level 26.8 Anion Gap 10 Estimat Glomerular Filtration Rate 66 Random Vancomycin Level 20.8 Lactic Acid Level 1.3 Phosphorus Level 2.0 Magnesium Level 2.3 Total Bilirubin 1.3 Direct Bilirubin 0.6 Indirect Bilirubin 0.7 Aspartate Amino Transf (AST/SGOT) 27 Alanine Aminotransferase (ALT/SGPT) 30 Alkaline Phosphatase 144 B-Type Natriuretic Peptide 593 Total Protein 5.6 Albumin 1.6 Lipase 183 Date/Time Source Procedure Growth Status 06/12/17 15:24 Blood Peripheral Aerobic Blood Culture - Preliminary NO GROWTH IN 1 DAY Resulted 06/12/17 15:24 Blood Peripheral Anaerobic Blood Culture - Preliminary NO GROWTH IN 1 DAY Resulted 06/09/17 09:45 Stool Stool Stool Occult Blood (KIM) - Final HEMOCCULT POSITIVE Complete 06/12/17 08:15 Sputum Endotracheal Gram Stain - Final Resulted 06/12/17 08:15 Sputum Culture - Preliminary S. Aureus Mrsa Resulted 06/12/17 08:20 Urine Catheterized Urine Urine Culture - Preliminary Shayla Albicans Resulted 06/12/17 13:20 Catheter Tip Central Venous Line Wound Culture - Preliminary NO GROWTH IN 24 HOURS. Resulted Result Diagram: 06/13/17 0520 06/13/17 0520 Imaging Last Impressions Chest X-Ray 06/13/17 1200 Signed Impressions: Service Date/Time: Tuesday, June 13, 2017 11:56 - CONCLUSION: No pneumothorax following left chest tube removal. Persistent bibasilar densities. Luc Cain Jr., MD Upper Extremity Ultrasound 06/07/17 0000 Signed Impressions: Service Date/Time: Wednesday, June 07, 2017 18:21 - CONCLUSION: 1. Limited exam but no deep venous thrombosis is identified bilaterally. Jamie Corrales MD Lower Extremity Ultrasound 06/07/17 0000 Signed Impressions: Service Date/Time: Wednesday, June 07, 2017 17:57 - CONCLUSION: 1. Positive bilateral lower extremity deep venous thrombosis, nonocclusive as above. Jamie Corrales MD Head CT 06/07/17 0000 Signed Impressions: Service Date/Time: Wednesday, June 07, 2017 17:01 - CONCLUSION: 1. No acute intracranial abnormality. 2. Extensive subcutaneous air tracking up from the chest. Luc Cain Jr., MD Cervical Spine CT 06/07/17 0000 Signed Impressions: Service Date/Time: Wednesday, June 07, 2017 17:01 - CONCLUSION: 1. Extensive subcutaneous emphysema. 2. Tiny left apical pneumothorax. 3. Diffuse mild degenerative changes without central canal stenosis. Multilevel neural foraminal narrowing. 4. Prevertebral soft tissues obscured by an endotracheal tube and nasogastric tube. Luc Cain Jr., MD Chest Tube Insertion 06/05/17 0000 Signed Impressions: Service Date/Time: May 09:15 - CONCLUSION: Uncomplicated chest tube placement as above. Maxwell Aldana MD Chest CT 06/05/17 0000 Signed Impressions: Service Date/Time: May 08:47 - CONCLUSION: 1. Moderate left-sided hemothorax with associated left lower lobe consolidation which may reflect a combination of compressive atelectasis, aspiration, and potentially lung infarction given recent pulmonary artery embolization. 2. Trace right apical pneumothorax with large bore chest tube in the major fissure and smallbore chest tube in the soft tissues. Significant subcutaneous emphysema extending to the cervicothoracic junction bilaterally. 3. Airspace consolidation in the right lower lobe posteriorly may reflect aspiration. Maxwell Aldana MD Embolization 06/03/17 0000 Signed Impressions: Service Date/Time: Saturday, June 03, 2017 00:00 - CONCLUSION: Left pulmonary artery rupture with successful coil embolization of a lower lobe branch vessel as above. Joselo Jennings MD Abdomen X-Ray 06/03/17 0000 Signed Impressions: Service Date/Time: Saturday, June 03, 2017 18:04 - CONCLUSION: Tip of the NG tube appears to be coiled in the stomach. Savana Valdovinos MD Assessment and Plan Assessment and Plan Rule out new sepsis(fever, tachycardia, source pneumonia) MRSA pneumonia Shayla albicans UTI, likely catheter associated. Status post cardiac catheterization with ruptured pulmonary artery as complication Chest tubes in place for pneumothorax Atrial fibrillation Pacemaker in place Recommendations Change Payne obtain a new UA from new Payne Discontinue cefepime Discontinue vancomycin IV Start Zyvox IV may be transitioned to oral if concern for fluid excess and if able to tolerate oral medications. Start fluconazole if repeat UA is negative okay to discontinue fluconazole. Follow cultures Follow clinically Discussed with Dr. Langford: Consider bronchoscopy for diagnostic and therapeutic purposes. May help reduce organism burden and shortening duration of pneumonia and help with lung mechanics. Discussed with RN as well as patient, son and has been in the room. Dr. Sigala covering for me this weekend. Dolores Segura MD Jun 13, 2017 18:17
[2017-06-13] MEDS: LINEZOLID 600 MG PREMIX 300 ML IV SCH (19:00)
[2017-06-13] MEDS ORDERED: FLUCONAZOLE 200 MG PREMIX BAG 100 ML IV SCH (19:00)
[2017-06-13] MEDS: HEPARIN 25,000 UNITS-D5W 250 ML - PREMIX IV SCH (19:19)
[2017-06-13] MEDS: FLUCONAZOLE 200 MG PREMIX BAG 100 ML IV SCH (22:17)
[2017-06-14] VITALS (15 sets, daily range): BP systolic 108–148; BP diastolic 49–88; PULSE 8–84; RESP 18–25; TEMP 97.7–100.6; O2SAT 95–99
[2017-06-14 00:10] LABS: BLOOD, URINE MOD (NEG); COMMENT (UR) CATH-CULTURE IND; CULTURE IF INDICATED CATH CULTURE IND; GLUCOSE,URINE NEG (NEG); KETONE, URINE NEG (NEG); MUCUS URINE FEW /lpf (OCC); NITRITE,URINE NEG (NEG); PH, URINE 5.5 (5.0-8.5); SQUAMOUS EPITHELIAL CELL URINE 2 /hpf (0-5); URINE COLOR YELLOW (YELLW/STRAW)
[2017-06-14] MEDS: hydrALAZINE HCL 20 MG/ML VIAL IV PUSH PRN (01:21)
[2017-06-14 02:33] LABS: APTT (PATIENT) 47.8 SEC (24.3-30.1)
[2017-06-14 04:47] LABS: AUTOMATED NEUTROPHIL # 29.3 TH/MM3 (1.8-7.7); BASOPHIL # 0.4 TH/MM3 (0-0.2); BASOPHIL % 1.1 % (0.0-2.0); HEMATOCRIT 32.5 % (35.0-46.0); LYMPH % 3.1 % (9.0-44.0); MEAN CORPUSCULAR HGB CONC 32.6 % (32.0-36.0); MONO % 4.4 % (0.0-8.0); NEUT % 91.4 % (16.0-70.0); PLATELET COUNT 423 TH/MM3 (150-450); RED BLOOD COUNT 3.78 MIL/MM3 (4.00-5.30); RED CELL DISTRIBUTION WIDTH 15.7 % (11.6-17.2); WHITE BLOOD COUNT 32.1 TH/MM3 (4.0-11.0)
[2017-06-14 05:04] LABS: HEMO FLAGS AUTO DIFF
[2017-06-14 05:15] LABS: BICARBONATE 27.6 MEQ/L (21.0-32.0); POTASSIUM 3.9 MEQ/L (3.5-5.1)
[2017-06-14] MEDS: DEXMEDETOMIDINE 200 MCG in NS 48 ML IV PRN ×2 (05:45→20:04)
[2017-06-14] MEDS: FREE WATER OG-TUBE SCH ×4 (06:00→17:40)
[2017-06-14] MEDS: LINEZOLID 600 MG PREMIX 300 ML IV SCH ×2 (06:20→18:04)
[2017-06-14] MEDS: LEVOTHYROXINE SODIUM 50 MCG TAB PO SCH (06:25)
[2017-06-14] MEDS: DILTIAZEM HCL 60 MG TAB PO SCH ×4 (06:25→17:40)
[2017-06-14] MEDS: METOPROLOL TARTRATE 25 MG TAB PO SCH ×3 (06:25→22:14)
[2017-06-14 07:40] LABS: BANDS 5 % (0-6); NEUTROPHIL # MANUAL DIFF 30.5 TH/MM3 (1.8-7.7); POLYS (SEG NEUTROPHILS) 90 % (16-70); WBC DIFF SAMPLE 100
[2017-06-14 07:42] LABS: PLATELET ESTIMATE SMEAR NORMAL (NORMAL); PLATELET MORPHOLOGY NORMAL (NORMAL); SCAN/DIFF FINAL DIFF MANUAL
[2017-06-14] MEDS: INSULIN ASPART SUPPLEMENTAL SCALE SQ SCH ×2 (08:57→22:15)
[2017-06-14] MEDS: PANTOPRAZOLE SODIUM 40 MG VIAL IV PUSH SCH ×2 (08:58→20:06)
[2017-06-14] MEDS: DIGOXIN 0.125 MG TAB PO SCH (08:59)
[2017-06-14] MEDS: NYSTATIN SUSP 500,000 U/5 ML CUP SWISH-SWAL SCH ×4 (08:59→20:06)
[2017-06-14] MEDS: DOCUSATE SODIUM 100 MG/10 ML UDC PO SCH ×2 (08:59→20:06)
[2017-06-14] MEDS: POTASSIUM CHLORIDE 25 MEQ EFFERVESCENT TAB PO SCH ×2 (09:00→20:07)
[2017-06-14] MEDS: ELTROMBOPAG 50 MG TAB PO SCH (09:00)
[2017-06-14] MEDS: LOSARTAN 50 MG TAB PO SCH (09:00)
[2017-06-14] MEDS: FUROSEMIDE 20 MG/2 ML VIAL IV PUSH SCH (09:01)
[2017-06-14] MEDS: CHLORHEXIDINE 0.12% (ORAL KIT) 15 ML CUP MT SCH ×2 (10:10→20:08)
[2017-06-14] MEDS ORDERED: PROPOFOL 500 MG/50 ML INJ 0 ML ONE (10:52)
[2017-06-14] MEDS ORDERED: PROPOFOL 500 MG/50 ML INJ 50 ML ONE (11:41)
--- NOTE | 2017-06-14 13:01 | HHI.PR ---
Subjective Remarks On mechanical ventilation Objective Vital Signs Date Time Temp Pulse Resp B/P (MAP) Pulse Ox O2 Delivery O2 Flow Rate FiO2 06/14/17 11:30 99 100 06/14/17 11:00 100.0 12 21 146/64 (91) 98 06/14/17 11:00 40 06/14/17 11:00 97 Mechanical Ventilator 40 06/14/17 11:00 80 06/14/17 08:24 97 40 06/14/17 08:00 100.2 8 21 148/88 (108) 97 06/14/17 08:00 40 06/14/17 08:00 97 Mechanical Ventilator 40 06/14/17 08:00 78 06/14/17 04:43 40 06/14/17 03:52 98 40 06/14/17 03:24 100.6 84 25 134/58 (83) 98 06/14/17 03:24 97 Mechanical Ventilator 40 06/14/17 03:00 78 06/14/17 01:00 40 06/14/17 01:00 98 40 06/13/17 23:32 98 Mechanical Ventilator 40 06/13/17 23:32 100.6 85 25 169/79 (109) 98 06/13/17 23:00 93 06/13/17 23:00 97 40 06/13/17 20:35 98 40 06/13/17 20:20 99.2 112 24 149/57 (87) 98 06/13/17 20:20 40 06/13/17 20:19 97 Mechanical Ventilator 40 06/13/17 19:00 114 06/13/17 15:25 97 50 06/13/17 15:00 114 06/13/17 15:00 99.2 114 16 187/82 (117) 97 06/13/17 15:00 97 Mechanical Ventilator 40 06/13/17 13:34 98 40 I/O 06/13/17 06/13/17 06/13/17 06/14/17 06/14/17 06/14/17 07:00 15:00 23:00 07:00 15:00 23:00 Intake Total 1437 ml 337 ml 877 ml 1267 ml Output Total 836 ml 1400 ml 577 ml Balance 601 ml 337 ml -523 ml 690 ml IV Total 292 ml 337 ml 470 ml 420 ml Tube Feeding 465 ml 407 ml Tube Irrigant 200 ml 367 ml Other 480 ml 480 ml Output Urine Total 610 ml 1400 ml 575 ml Chest Tube Drainage Total 226 ml 0 ml 2 ml # Bowel Movements 0 1 Result Diagram: 06/14/1741206/14/17412 Imaging Sedated, intubated, on mechanical ventilation Lungs: ventilated Heart: S1, S2 irregular Mediastinal and chest tubes Abdomen: soft, no mass Ext: no edema Last Impressions Chest X-Ray 06/13/17 1200 Signed Impressions: Service Date/Time: Tuesday, June 13, 2017 11:56 - CONCLUSION: No pneumothorax following left chest tube removal. Persistent bibasilar densities. Luc Cain Jr., MD Upper Extremity Ultrasound 06/07/17 0000 Signed Impressions: Service Date/Time: Wednesday, June 07, 2017 18:21 - CONCLUSION: 1. Limited exam but no deep venous thrombosis is identified bilaterally. Jamie Corrales MD Lower Extremity Ultrasound 06/07/17 0000 Signed Impressions: Service Date/Time: Wednesday, June 07, 2017 17:57 - CONCLUSION: 1. Positive bilateral lower extremity deep venous thrombosis, nonocclusive as above. Jamie Corrales MD Head CT 06/07/17 0000 Signed Impressions: Service Date/Time: Wednesday, June 07, 2017 17:01 - CONCLUSION: 1. No acute intracranial abnormality. 2. Extensive subcutaneous air tracking up from the chest. Luc Cain Jr., MD Cervical Spine CT 06/07/17 0000 Signed Impressions: Service Date/Time: Wednesday, June 07, 2017 17:01 - CONCLUSION: 1. Extensive subcutaneous emphysema. 2. Tiny left apical pneumothorax. 3. Diffuse mild degenerative changes without central canal stenosis. Multilevel neural foraminal narrowing. 4. Prevertebral soft tissues obscured by an endotracheal tube and nasogastric tube. Luc Cain Jr., MD Chest Tube Insertion 06/05/17 0000 Signed Impressions: Service Date/Time: May 09:15 - CONCLUSION: Uncomplicated chest tube placement as above. Maxwell Aldana MD Chest CT 06/05/17 0000 Signed Impressions: Service Date/Time: May 08:47 - CONCLUSION: 1. Moderate left-sided hemothorax with associated left lower lobe consolidation which may reflect a combination of compressive atelectasis, aspiration, and potentially lung infarction given recent pulmonary artery embolization. 2. Trace right apical pneumothorax with large bore chest tube in the major fissure and smallbore chest tube in the soft tissues. Significant subcutaneous emphysema extending to the cervicothoracic junction bilaterally. 3. Airspace consolidation in the right lower lobe posteriorly may reflect aspiration. Maxwell Aldana MD Embolization 06/03/17 0000 Signed Impressions: Service Date/Time: Saturday, June 03, 2017 00:00 - CONCLUSION: Left pulmonary artery rupture with successful coil embolization of a lower lobe branch vessel as above. Joselo Jennings MD Abdomen X-Ray 06/03/17 0000 Signed Impressions: Service Date/Time: Saturday, June 03, 2017 18:04 - CONCLUSION: Tip of the NG tube appears to be coiled in the stomach. Savana Valdovinos MD Current Medications Medications (Trade) Dose Ordered Sig/Padmini Route Start Time Stop Time Status Last Admin (Peridex 0.12% Liq) 15 ml BID@08,20 MT 06/03/17 20:00 06/14/17 10:10 (Duoneb Neb) 1 ampule Q2HR NEB PRN NEB 06/03/17 19:00 06/12/17 03:33 (Protonix Inj) 40 mg Q12H IV PUSH 06/03/17 20:00 06/14/17 08:58 Potassium Chloride 100 ml @ 50 mls/hr Q2H PRN IV 06/03/17 19:15 06/09/17 08:04 Potassium Chloride 100 ml @ 50 mls/hr Q2H PRN IV 06/03/17 19:15 (K-Lyte Cl Eff) 50 meq UNSCH PRN PO 06/03/17 19:15 Potassium Chloride 100 ml @ 25 mls/hr UNSCH PRN IV 06/03/17 19:15 06/06/17 18:46 Potassium Chloride 100 ml @ 50 mls/hr Q2H PRN IV 06/03/17 19:15 06/13/17 08:23 Magnesium Sulfate 4 gm/Sodium Chloride 100 ml @ 50 mls/hr UNSCH PRN IV 06/03/17 19:15 (Mag-Ox) 800 mg UNSCH PRN PO 06/03/17 19:15 Magnesium Sulfate 2 gm/Sodium Chloride 100 ml @ 50 mls/hr UNSCH PRN IV 06/03/17 19:15 06/04/17 16:45 (K-Phos) 2,000 mg Q4H PRN PO 06/03/17 19:15 Sodium Phosphate 30 mmol/Sodium Chloride 250 ml @ 42 mls/hr UNSCH PRN IV 06/03/17 19:15 (K-Phos) 2,000 mg UNSCH PRN PO/TUBE 06/03/17 19:15 Potassium Phosphate 30 mmol/ Sodium Chloride 260 ml @ 42 mls/hr UNSCH PRN IV 06/03/17 19:15 06/13/17 12:03 (D50w (Vial) Inj) 50 ml UNSCH PRN IV PUSH 06/04/17 12:15 (Glucagon Inj) 1 mg UNSCH PRN OTHER 06/04/17 12:15 (Lopressor Inj) 1.25 mg Q6H PRN IV PUSH 06/04/17 19:15 06/06/17 20:29 (Free Water) 250 ml Q6HR OG-TUBE 06/05/17 14:00 06/14/17 12:30 (Colace Liq) 100 mg Q12HR PO 06/05/17 14:00 06/14/17 08:59 (K-Lyte Cl Eff) 25 meq Q12HR PO 06/05/17 14:00 06/14/17 09:00 (Lanoxin) 0.125 mg DAILY PO 06/06/17 09:00 06/14/17 08:59 (Lasix Inj) 20 mg DAILY IV PUSH 06/07/17 09:00 06/14/17 09:01 (Lopressor) 25 mg Q8HR PO 06/07/17 14:00 06/14/17 06:25 Clevidipine 50 ml @ 2 mls/hr TITRATE PRN IV 06/07/17 07:00 06/09/17 08:02 (Cozaar) 50 mg DAILY PO 06/07/17 09:00 06/14/17 09:00 (Apresoline Inj) 20 mg Q4H PRN IV PUSH 06/07/17 08:00 06/14/17 01:21 (Synthroid) 50 mcg DAILY@0600 PO 06/07/17 08:00 06/14/17 06:25 (Promacta) 25 mg DAILY@1000 PO 06/08/17 10:00 06/14/17 09:00 Heparin Sodium/ Dextrose 250 ml @ 11 mls/hr TITRATE IV 06/07/17 22:00 06/13/17 19:19 (Heparin Inj) 5,000 units UNSCH PRN IV PUSH 06/07/17 22:00 (Heparin Inj) 2,500 units UNSCH PRN IV PUSH 06/07/17 22:00 (Pill Splitter) 1 ea UNSCH PRN OTHER 06/07/17 22:15 (NovoLOG SUPPLEMENTAL SCALE) 1 BID@0800,2000 SQ 06/08/17 20:00 06/14/17 08:57 (Mycostatin Liq) 5 ml QID SWISH-SWAL 06/12/17 13:00 06/14/17 08:59 Dexmedetomidine HCl 200 mcg/ Sodium Chloride 50 ml @ 3.1 mls/hr TITRATE PRN IV 06/13/17 06:15 06/14/17 05:45 (Cardizem) 60 mg Q6HR PO 06/13/17 12:00 06/14/17 12:40 Linezolid 300 ml @ 300 mls/hr Q12H IV 06/13/17 19:00 06/14/17 06:20 Fluconazole/ Sodium Chloride 100 ml @ 100 mls/hr Q24H IV 06/13/17 21:00 06/13/17 22:17 Assessment and Plan Problem List: (1) Respiratory failure ICD Codes: J96.90 - Respiratory failure, unspecified, unspecified whether with hypoxia or hypercapnia Plan: On mechanical ventilation. SP pulmonary stenosis Condition of care Improving (2) Pulmonary arterial thrombosis ICD Codes: I26.99 - Other pulmonary embolism without acute cor pulmonale Status: Acute Plan: Stable [place] by critical care (3) Aortic stenosis ICD Codes: I35.0 - Nonrheumatic aortic (valve) stenosis Plan: Further decision by Dr Corrales Medical management for now. Araceli Montero MD Jun 14, 2017 13:01
--- NOTE | 2017-06-14 13:51 | HHI.CCPN ---
Subjective Remarks/Hospital Course I was emergently called to lab clerk by Dr. Corrales. Ms. Mahoney who is 89 yo female with history of severe aortic stenosis was undergoing left and right heart catheter for TAVR evaluation. With right heart catheterization patient developed acute massive hemoptysis with shock secondary to acute rupture of pulmonary artery. Patient was intubated by Dr. Potter and ETT was advance to Right lung for selective right lung ventilation due to massive hemorrhage from Left lung. On my arrival to lab clerk, patient was rapidly dropping blood pressure. Dopamine was already started. I ordered Shantanu-Synephrine, at 300 mcg/ m in an attempt to increase MAP and also increase the pulmonary vasoconstriction. Levophed was also added to maintain blood pressure and rapidly titrated up. Emergency release blood initially 3 units was ordered stat along with 2 units of FFP, 1 unit of platelet. I also emergently contacted Dr. Vásquez was in the office. (Dr. Bedoya the on-call CT surgeon was operating). While on Levophed Shantanu-Synephrine and dopamine, patient developed coarse V. fib/V. tach, received brief CPR, and was DC cardioverted 1 with return of spontaneous circulation and sinus rhythm. I discussed with Dr. Corrales and anesthesiologist, I also contacted Dr. Josue from invasive radiology.Dr. Josue immediately arrived to the lab clerk. Dr. Abdelrahman francis performed PARVIN which showed vigorous LV contraction but cavity was empty. Received Continuous massive fluid resuscitation with multiple crystalloid boluses, bicarbonate and calcium. Blood arrived and initially 3 units of PRBC, 2 units of 1 unit of platelets was given with calcium total 3 g given after blood transfusion. Because of persistent hypotension, additional 2 units of PRBC was given. While I resuscitated the patient, Dr. Corrales and Dr. Jennings performed right heart cath, identified bleeding of a small branch in the left pulmonary artery. They put put in 6 coils in the lower left lower pulmonary artery followed with Gelfoam closing the perforation. 06/04: Emergency chest 2 yesterday for right pneumothorax with hypotension and hypoxia. Remains intubated sedated and on Levophed. FiO2 remains at 100%, Sat improving to 94-95 %. UO adequate overnight. 2-D echo on my review normal LV and RV function, no PFO on bubble study 06/05: Patient is in atrial fibrillation currently on Cardene infusion for blood pressure control. Chest x-ray shows percutaneous emphysema and small apical pneumothorax. Remains on 80% FiO2. I discussed with interventional radiology. We will attempt CT-guided repositioning of the pigtail catheter and possibly upgrading to a larger tube. Urine output adequate 750 mL in 24 hours 06/06: Currently remains in A. fib with rate controlled, hypertensive on Cardizem drip. Oxygen saturation has improved FiO2 now to 40% with saturation 97%. Urine output excellent with Lasix 4.5 L in 24 hours. Chest x-ray today shows 2.5 cm bilateral apical pneumothorax, also left side has 1.2 cm lateral pneumothorax 06/07: Intubated, on low dose propofol for ventilator synchrony. FiO2 40% oxygen saturation 99%. Chest x-ray and labs pending urine output 2.7 L. 3 chest tubes with no air leak. If neuro exam not improving off sedation will check CT of the head. Currently on propofol will policy change clerk to Precedex to initiate weaning trials. On weaning doses of inhaled Flolan currently on 30, 000 ng 06/08: Remains intubated, mild sedation with Precedex. Overnight FiO2 increased to 65% for hypoxia. CXR left more than right consolidation of lower lobes. Sputum positive for MRSA on vancomycin. Bilateral lower extremity US studies yesterday showed DVT, initiated on IV heparin. Currently therapeutic on heparin. No evidence of pulmonary hemorrhage. Neuro exam is improving weekly follows commands all 4 extremities 06/09: remains intubated. failed CPAP yesterday. on Cleviprex and precedex. fio2 back to 40%. CXR improved aeration with the exception of known LLL. FC x 4. 06/10: failed SBT again for apnea. but much more awake. denies pain. ROS negative. off cleviprex. new air leak in chest tube. will get chest xray to re- eval. 06/11: Warm, well perfused. Alert, cooperative. Communicates with head nod, hand gestures. Comfortable respiratory pattern and acceptable excursions.Air leaks will seal when off positive pressure ventilation. FiO2 to 0.80 last night briefly; now 0.40. I'll come back later today and see if I can get her extubated. 06/12: Required re-intubation for hypoxemic respiratory failure last evening. She is now warm with well perfused fingers and toes. Low dose levophed not hampering peripheral perfusion. Mild prerenal azotemia. CXR with diffuse infiltrates as before. WBC 32,00, afebrile. Must assume colonized lungs at least. Antibiotic coverage is appropriate. Reculture sputum, urine. Progress to weaning trials daily.Hemodynamics appear excellent, rate a minor problem pretty well controlled. Continue Vanc. Stop pip/roxi, start cefepime. Narrow after cultures. Change CVLs, draw blood cultures. 06/13: Persistent leukocytosis, Tmax 100.2. O2 diffusion acceptable on positive pressure ventilation. Sputum culture pending. Remains warm and well perfused. Continue daily spontaneous breathing trials. 06/14: Bronch and BAL this morning by Dr. Muñoz. Gas exchange remains acceptable. Continue SBTs. Objective Vital Signs Date Time Temp Pulse Resp B/P (MAP) Pulse Ox O2 Delivery O2 Flow Rate FiO2 06/14/17 11:30 99 100 06/14/17 11:00 100.0 12 21 146/64 (91) 06/14/17 11:00 Mechanical Ventilator 06/11/17 14:25 40.00 Intake and Output 06/14/17 06/14/17 06/15/17 08:00 16:00 00:00 Intake Total 1182 ml Output Total 577 ml Balance 605 ml Result Diagram: 06/14/17 0413 06/14/17 0413 Other Results Microbiology Date/Time Source Procedure Growth Status 06/12/17 08:15 Sputum Endotracheal Gram Stain - Final Complete 06/12/17 08:15 Sputum Culture - Final S. Aureus Mrsa Complete 06/12/17 08:20 Urine Catheterized Urine Urine Culture - Final Shayla Albicans Complete 06/12/17 13:20 Catheter Tip Central Venous Line Wound Culture - Final NO GROWTH IN 48 HOURS. Complete Objective Remarks GENERAL: Intubated. Alert. Moving extremities with purpose. SKIN: Skin /dry. ENT: Orotracheally intubated. NECK: Trachea midline. Supple. CARDIOVASCULAR: Remains in atrial fibrillation, rate well controlled in 90 - 100s. Systolic murmur over apex. RESPIRATORY: Diffuse sonorous coarse sounds. Good air entry at bases. Bilateral chest tubes with intermittent air leak left side. GASTROINTESTINAL: Abdomen Soft, no guarding. BS active. MUSCULOSKELETAL: New right IJ CVL. Limbs well perfused. NEUROLOGICAL: Patient is intubated. Awake, following commands x 4. RASS -1. A/P Assessment and Plan Assessment: 89yF with severe aortic stenosis, course complicated by Pulmonary Artery rupture during right heart catheterization, traumatic pneumothorax secondary to barotrauma, acute hypoxic respiratory failure, MRSA healthcare associated pneumonia, volume overload. remains off pathway and critically ill, although some organ systems improved. failed extubation 2 days ago. daily SBTs and OOB to stretcher chair daily. NEURO: Encephalopathy, metabolic - resolving. - Precedex to facilitate neuro exam - Daily sedation vacation - Continue to hold home sertraline -CT of the head and C-spine negative for acute injury - Resolved 06/11 RESP: Left lower pulmonary artery rupture with massive hemorrhage Massive hemoptysis Acute hypoxemic respiratory failure MRSA pneumonia Large Left hemothorax s/p IR chest tube placement Bilateral apical pneumothorax Residual L pneumothorax after hemothorax evacuation Bilateral lower extremity DVT - s/p coil and gelfoam closure of Left lower pulmonary artery (peripheral small branch) by Rhoda Corrales and Michaela (see resuscitation note on 06/03/17) - PC/AC mechanical ventilation PEEP of 8, Fio2 down 40% overnight increased to 65%. Chest x-ray shows left lower lobe pneumonia - Chest x-ray confirms pneumonia vs lung infarct. Sputum with MRSA. on vancomycin - s/p chest tube x2 for right pneumothorax on 06/03. New apical chest tube placed 06/06/17 - IR, placed 24 F Left chest tube 06/05 with drainage of 2 L hemothorax, residual pneumothorax present, now resolved - CXR 06/07, resolution of right improving subcutaneous emphysema. Small residual left apical pneumo - s/p Bronchoscopy with removal of blood predominantly from L lung, s/p repeat bronch 06/06 - DuoNeb q 6hours and PRN - Flolan weaned off - Venous duplex -bilateral lower extremity DVT. IV heparin started 06/07/17 therapeutic - continue daily SBTs. still failing for weakness and apnea. - Required re-intubation 06/02 for hypoxemia CV/Heme: Hemorrhagic shock-resolved Bilateral lower extremity DVT Anemia requiring transfusion Severe Aortic Stenosis Atrial fibrillation with RVR Possible history of ITP - IV heparin started 06/07/17 for bilateral lower extremity DVT and atrial fibrillation, watch closely for bloody chest tube output and hemoptysis - Continue home Cardizem CD 120 mg daily. - Cleviprex, when necessary hydralazine (well beta blocked) to keep systolic blood pressure less than 150 - Continue IV Lasix, 20 mg daily. Home metoprolol at 25 mg by mouth every 8 hours. Home dose of digoxin - On Multaq at home. Defer to Dr. Corrales - Received 6 units of emergency release blood, 2 units of FFP and one of platelets 06/03/17. Multiple crystalloid boluses were given, PARVIN normal LV contractility, volume depletion - 2D Echo 06/04 RV LV function look normal, no PFO - Resumed Promacta for ITP - hydralazine 50mg po q8hr and increased losartan to 100mg daily (06/09). now off cleviprex. GI: - OGT tube, IV Protonix. Tube feeds with Jevity. Having regular BMs : - Monitor renal function closely. Payne catheter. Urine output adequate - IV Lasix ID: MRSA pneumonia - Empiric Zosyn and single dose of vancomycin given 06/07, Vanc pharmacy to dose -> D/C pip/roxi, add cefepime for new fever, leukocytosis - BAL culture MRSA. Continue vancomycin - Reculture sputum, blood, urine ENDO: Hypokalemia Hypomagnesemia - Replace electrolytes per protocol PROPH: - DC SCDs due to DVT. IV Protonix. IV heparin started 06/07 LINES: - Left femoral cordis and central line D/c'd 06/04. New LIJ central line placed 06/04 -> out 06/12 New Left IJ CVL 06/12 Overall impression: Required re-intubation for diffusion problem. Consistent with interstitial edema and loss of FRC. Continue daily SBTs, maintain diaphragm strength. She is close to tolerating extubation. I asked ID consult to help us narrow coverage, avoid resistance. BAL sputum obtained today. Rich Langford MD Jun 14, 2017 13:51
[2017-06-14] MEDS ORDERED: CISATRACURIUM BESYLATE 20 MG/10 ML VIAL IV ONE (14:15)
[2017-06-14] MEDS ORDERED: PROPOFOL 500 MG/50 ML BTL IV ONE (14:45)
--- NOTE | 2017-06-14 14:48 | RADRPT ---
EXAM DATE/TIME: 06/14/2017 13:31 [facility] COMPARISON: CHEST EXPIRATION ONLY, June 13, 2017, 11:56. CHEST SINGLE AP, June 13, 2017, 8:48. INDICATIONS : Post bronchoscopy. Respiratory failure MEDICAL HISTORY : Congestive heart failure. Hypertension. Carcinoma, colon. Aortic stenosis. SURGICAL HISTORY : Cardiac cath. Pacemaker. Tonsillectomy. ENCOUNTER: Initial ACUITY: 1 day PAIN SCORE: Non-responsive. LOCATION: Bilateral chest FINDINGS: A single AP portable supine view of the chest was obtained and again demonstrates an endotracheal tub e in place with the tip approximately 1 cm above the mikel. A nasogastric tube is seen coursing thro ugh the esophagus into the stomach. The right internal jugular central venous line remains in place. The left subclavian AV sequential transvenous pacer is unchanged. There is a right-sided chest tube i n place with no pneumothorax. The heart size remains within normal limits with calcifications in the mitral valve annulus. There is mild stable streaky opacity in both lungs. The bony thorax remains int act. CONCLUSION: 1. The small bore right-sided chest tube remains in place with no pneumothorax. 2. The patient remains intubated with central line in place. 3. Mild streaky opacity remains in both lungs without significant change. Pancho Crawford MD on June 14, 2017 at 14:44 Board Certified Radiologist. This report was verified electronically.
--- NOTE | 2017-06-14 16:58 | PD.PROCEDR ---
Procedure Note Procedure Procedure: Diagnostic Fiberoptic Bronchoscopy Diagnosis: Acute hypoxic respiratory failure Indications: Need for diagnostic BAL Consent: Obtained Anesthesia: Propofol IV, cisatracurium IV Description of the Procedure: The patient was sedated and mechanically ventilated. The patient was placed on 100% FIO2 and a volume control mode of ventilation. The fiberoptic bronchoscopy was inserted via oral endotracheal tube. The trachea, right and left mainstem bronchi, and sub-segmental bronchi were evaluated. The endobronchial anatomy was normal. Findings: Moderate amount of bloody secretions in left lower lobe. More purulent secretions noted in the right lower lobe. BAL samples: RLL, LLL. The patient tolerated the procedure well with no hemodynamic instability or hypoxia. There were no immediate complications noted. At the conclusion of the procedure, the patient was placed back on their pre-procedure ventilatory settings. There was minimal EBL. A chest x-ray has been ordered. I personally performed the procedure. Jensen Muñoz MD Jun 14, 2017 16:58
[2017-06-14] MEDS: FLUCONAZOLE 200 MG PREMIX BAG 100 ML IV SCH (20:07)
[2017-06-14] MEDS: CEFEPIME INJ 2,000 MG in SODIUM CHLORIDE 0.9% INJ 100 ML IV SCH (20:08)
[2017-06-14] MEDS ORDERED: PHARMACY ORDERED LAB ONE (20:45)
[2017-06-14 21:06] LABS: APTT (PATIENT) 37.9 SEC (24.3-30.1)
[2017-06-14] MEDS: HEPARIN 25,000 UNITS-D5W 250 ML - PREMIX IV SCH (22:16)
[2017-06-15] VITALS (15 sets, daily range): BP systolic 126–163; BP diastolic 58–65; PULSE 71–84; RESP 17–25; TEMP 97.7–99.7; O2SAT 93–99
[2017-06-15] MEDS: DILTIAZEM HCL 60 MG TAB PO SCH ×4 (00:03→18:33)
[2017-06-15] MEDS: DEXMEDETOMIDINE 200 MCG in NS 48 ML IV PRN ×5 (00:03→21:11)
[2017-06-15 04:48] LABS: APTT (PATIENT) 43.4 SEC (24.3-30.1)
[2017-06-15] MEDS: FREE WATER OG-TUBE SCH ×4 (06:00→18:00)
[2017-06-15] MEDS: LEVOTHYROXINE SODIUM 50 MCG TAB PO SCH (06:22)
[2017-06-15] MEDS: LINEZOLID 600 MG PREMIX 300 ML IV SCH ×2 (06:22→18:34)
[2017-06-15] MEDS: METOPROLOL TARTRATE 25 MG TAB PO SCH ×3 (06:22→22:31)
[2017-06-15] MEDS: CHLORHEXIDINE 0.12% (ORAL KIT) 15 ML CUP MT SCH ×2 (07:37→21:13)
[2017-06-15] MEDS: DOCUSATE SODIUM 100 MG/10 ML UDC PO SCH ×2 (08:42→21:11)
[2017-06-15] MEDS: DIGOXIN 0.125 MG TAB PO SCH (08:43)
[2017-06-15] MEDS: INSULIN ASPART SUPPLEMENTAL SCALE SQ SCH ×2 (08:43→20:00)
[2017-06-15] MEDS: LOSARTAN 50 MG TAB PO SCH (09:08)
[2017-06-15] MEDS: PANTOPRAZOLE SODIUM 40 MG VIAL IV PUSH SCH ×2 (09:08→21:12)
[2017-06-15] MEDS: FUROSEMIDE 20 MG/2 ML VIAL IV PUSH SCH (09:08)
[2017-06-15] MEDS: NYSTATIN SUSP 500,000 U/5 ML CUP SWISH-SWAL SCH ×4 (09:08→21:11)
[2017-06-15] MEDS: ELTROMBOPAG 50 MG TAB PO SCH (09:09)
[2017-06-15] MEDS: POTASSIUM CHLORIDE 25 MEQ EFFERVESCENT TAB PO SCH ×2 (09:14→21:11)
[2017-06-15] MEDS: CEFEPIME INJ 2,000 MG in SODIUM CHLORIDE 0.9% INJ 100 ML IV SCH ×2 (09:33→21:12)
--- NOTE | 2017-06-15 10:54 | HHI.CCPN ---
Subjective Remarks/Hospital Course I was emergently called to labor conciliator by Dr. Corrales. Ms. Mahoney who is 89 yo female with history of severe aortic stenosis was undergoing left and right heart catheter for TAVR evaluation. With right heart catheterization patient developed acute massive hemoptysis with shock secondary to acute rupture of pulmonary artery. Patient was intubated by Dr. Potter and ETT was advance to Right lung for selective right lung ventilation due to massive hemorrhage from Left lung. On my arrival to labor conciliator, patient was rapidly dropping blood pressure. Dopamine was already started. I ordered Shantanu-Synephrine, at 300 mcg/ m in an attempt to increase MAP and also increase the pulmonary vasoconstriction. Levophed was also added to maintain blood pressure and rapidly titrated up. Emergency release blood initially 3 units was ordered stat along with 2 units of FFP, 1 unit of platelet. I also emergently contacted Dr. Vásquez was in the office. (Dr. Bedoya the on-call CT surgeon was operating). While on Levophed Shantanu-Synephrine and dopamine, patient developed coarse V. fib/V. tach, received brief CPR, and was DC cardioverted 1 with return of spontaneous circulation and sinus rhythm. I discussed with Dr. Corrales and anesthesiologist, I also contacted Dr. Josue from invasive radiology.Dr. Josue immediately arrived to the labor conciliator. Dr. Abdelrahman francis performed PARVIN which showed vigorous LV contraction but cavity was empty. Received Continuous massive fluid resuscitation with multiple crystalloid boluses, bicarbonate and calcium. Blood arrived and initially 3 units of PRBC, 2 units of 1 unit of platelets was given with calcium total 3 g given after blood transfusion. Because of persistent hypotension, additional 2 units of PRBC was given. While I resuscitated the patient, Dr. Corrales and Dr. Jennings performed right heart cath, identified bleeding of a small branch in the left pulmonary artery. They put put in 6 coils in the lower left lower pulmonary artery followed with Gelfoam closing the perforation. 06/04: Emergency chest 2 yesterday for right pneumothorax with hypotension and hypoxia. Remains intubated sedated and on Levophed. FiO2 remains at 100%, Sat improving to 94-95 %. UO adequate overnight. 2-D echo on my review normal LV and RV function, no PFO on bubble study 06/05: Patient is in atrial fibrillation currently on Cardene infusion for blood pressure control. Chest x-ray shows percutaneous emphysema and small apical pneumothorax. Remains on 80% FiO2. I discussed with interventional radiology. We will attempt CT-guided repositioning of the pigtail catheter and possibly upgrading to a larger tube. Urine output adequate 750 mL in 24 hours 06/06: Currently remains in A. fib with rate controlled, hypertensive on Cardizem drip. Oxygen saturation has improved FiO2 now to 40% with saturation 97%. Urine output excellent with Lasix 4.5 L in 24 hours. Chest x-ray today shows 2.5 cm bilateral apical pneumothorax, also left side has 1.2 cm lateral pneumothorax 06/07: Intubated, on low dose propofol for ventilator synchrony. FiO2 40% oxygen saturation 99%. Chest x-ray and labs pending urine output 2.7 L. 3 chest tubes with no air leak. If neuro exam not improving off sedation will check CT of the head. Currently on propofol will slubber frame changer to Precedex to initiate weaning trials. On weaning doses of inhaled Flolan currently on 30, 000 ng 06/08: Remains intubated, mild sedation with Precedex. Overnight FiO2 increased to 65% for hypoxia. CXR left more than right consolidation of lower lobes. Sputum positive for MRSA on vancomycin. Bilateral lower extremity US studies yesterday showed DVT, initiated on IV heparin. Currently therapeutic on heparin. No evidence of pulmonary hemorrhage. Neuro exam is improving weekly follows commands all 4 extremities 06/09: remains intubated. failed CPAP yesterday. on Cleviprex and precedex. fio2 back to 40%. CXR improved aeration with the exception of known LLL. FC x 4. 06/10: failed SBT again for apnea. but much more awake. denies pain. ROS negative. off cleviprex. new air leak in chest tube. will get chest xray to re- eval. 06/11: Warm, well perfused. Alert, cooperative. Communicates with head nod, hand gestures. Comfortable respiratory pattern and acceptable excursions.Air leaks will seal when off positive pressure ventilation. FiO2 to 0.80 last night briefly; now 0.40. I'll come back later today and see if I can get her extubated. 06/12: Required re-intubation for hypoxemic respiratory failure last evening. She is now warm with well perfused fingers and toes. Low dose levophed not hampering peripheral perfusion. Mild prerenal azotemia. CXR with diffuse infiltrates as before. WBC 32,00, afebrile. Must assume colonized lungs at least. Antibiotic coverage is appropriate. Reculture sputum, urine. Progress to weaning trials daily.Hemodynamics appear excellent, rate a minor problem pretty well controlled. Continue Vanc. Stop pip/roxi, start cefepime. Narrow after cultures. Change CVLs, draw blood cultures. 06/13: Persistent leukocytosis, Tmax 100.2. O2 diffusion acceptable on positive pressure ventilation. Sputum culture pending. Remains warm and well perfused. Continue daily spontaneous breathing trials. 06/14: Bronch and BAL this morning by Dr. Muñoz. Gas exchange remains acceptable. Continue SBTs. 06/15: Looks great on SBTs/CPAP. She would benefit from a temporary tracheostomy. But she will eventually be off and extubated for good. C&S pending from BAL. Continue present abx regimen - discussed with Dr. Segura. Objective Vital Signs Date Time Temp Pulse Resp B/P (MAP) Pulse Ox O2 Delivery O2 Flow Rate FiO2 06/15/17 09:55 95 40 06/15/17 07:00 Mechanical Ventilator 06/15/17 03:00 84 06/15/17 03:00 99.4 18 131/65 (87) 06/11/17 14:25 40.00 Intake and Output 06/15/17 06/15/17 06/16/17 08:00 16:00 00:00 Intake Total 985 ml Output Total 510 ml Balance 475 ml Result Diagram: 06/14/17 0413 06/14/17 0413 Other Results Microbiology Date/Time Source Procedure Growth Status 06/13/17 22:00 Urine Catheterized Urine Urine Culture - Final Shayla Albicans Complete 06/12/17 13:20 Catheter Tip Central Venous Line Wound Culture - Final NO GROWTH IN 48 HOURS. Complete Objective Remarks GENERAL: Intubated. Alert. Moving extremities with purpose. SKIN: Skin /dry. ENT: Orotracheally intubated. NECK: Trachea midline. Supple. CARDIOVASCULAR: Remains in atrial fibrillation, rate well controlled in 90 - 100s. Systolic murmur over apex. RESPIRATORY: Continued sonorous coarse sounds. Good air entry at bases. Bilateral chest tubes with intermittent air leak left side. GASTROINTESTINAL: Abdomen Soft, no guarding. BS active. MUSCULOSKELETAL: New right IJ CVL. Limbs well perfused. NEUROLOGICAL: Patient is intubated. Follows commands. Awake, following commands x 4. RASS -1. A/P Assessment and Plan Assessment: 89yF with severe aortic stenosis, course complicated by Pulmonary Artery rupture during right heart catheterization, traumatic pneumothorax secondary to barotrauma, acute hypoxic respiratory failure, MRSA healthcare associated pneumonia, volume overload. remains off pathway and critically ill, although some organ systems improved. failed extubation 2 days ago. daily SBTs and OOB to stretcher chair daily. NEURO: Encephalopathy, metabolic - resolving. - Precedex to facilitate neuro exam - Daily sedation vacation - Continue to hold home sertraline -CT of the head and C-spine negative for acute injury - Resolved 06/11 RESP: Left lower pulmonary artery rupture with massive hemorrhage Massive hemoptysis Acute hypoxemic respiratory failure MRSA pneumonia Large Left hemothorax s/p IR chest tube placement Bilateral apical pneumothorax Residual L pneumothorax after hemothorax evacuation Bilateral lower extremity DVT - s/p coil and gelfoam closure of Left lower pulmonary artery (peripheral small branch) by Rhoda Corrales and Michaela (see resuscitation note on 06/03/17) - PC/AC mechanical ventilation PEEP of 8, Fio2 down 40% overnight increased to 65%. Chest x-ray shows left lower lobe pneumonia - Chest x-ray confirms pneumonia vs lung infarct. Sputum with MRSA. on vancomycin - s/p chest tube x2 for right pneumothorax on 06/03. New apical chest tube placed 06/06/17 - IR, placed 24 F Left chest tube 06/05 with drainage of 2 L hemothorax, residual pneumothorax present, now resolved - CXR 06/07, resolution of right improving subcutaneous emphysema. Small residual left apical pneumo - s/p Bronchoscopy with removal of blood predominantly from L lung, s/p repeat bronch 06/06 - DuoNeb q 6hours and PRN - Flolan weaned off - Venous duplex -bilateral lower extremity DVT. IV heparin started 06/07/17 therapeutic - continue daily SBTs. still failing for weakness and apnea. - Required re-intubation 06/02 for hypoxemia -- It may be prudent to proceed directly to trach. She can be on vent at night and off during the day while we get her lungs cleared up. CV/Heme: Hemorrhagic shock-resolved Bilateral lower extremity DVT Anemia requiring transfusion Severe Aortic Stenosis Atrial fibrillation with RVR Possible history of ITP - IV heparin started 06/07/17 for bilateral lower extremity DVT and atrial fibrillation, watch closely for bloody chest tube output and hemoptysis - Continue home Cardizem CD 120 mg daily. - Cleviprex, when necessary hydralazine (well beta blocked) to keep systolic blood pressure less than 150 - Continue IV Lasix, 20 mg daily. Home metoprolol at 25 mg by mouth every 8 hours. Home dose of digoxin - On Multaq at home. Defer to Dr. Corrales - Received 6 units of emergency release blood, 2 units of FFP and one of platelets 06/03/17. Multiple crystalloid boluses were given, PARVIN normal LV contractility, volume depletion - 2D Echo 06/04 RV LV function look normal, no PFO - Resumed Promacta for ITP - hydralazine 50mg po q8hr and increased losartan to 100mg daily (06/09). now off cleviprex. GI: - OGT tube, IV Protonix. Tube feeds with Jevity. Having regular BMs : - Monitor renal function closely. Payne catheter. Urine output adequate - IV Lasix ID: MRSA pneumonia - Empiric Zosyn and single dose of vancomycin given 06/07, Vanc pharmacy to dose -> D/C pip/roxi, add cefepime for new fever, leukocytosis - BAL culture MRSA. Continue vancomycin - Reculture sputum, blood, urine ENDO: Hypokalemia Hypomagnesemia - Replace electrolytes per protocol PROPH: - DC SCDs due to DVT. IV Protonix. IV heparin started 06/07 LINES: - Left femoral cordis and central line D/c'd 06/04. New LIJ central line placed 06/04 -> out 06/12 New Left IJ CVL 06/12 Overall impression: Required re-intubation for diffusion problem. Consistent with interstitial edema and loss of FRC. Continue daily SBTs, maintain diaphragm strength. I asked ID consult to help us narrow coverage, avoid resistance. BAL sputum obtained, pending result. She still coughs up residual blood. She will benefit from trach for a couple of weeks. Rich Langford MD Jun 15, 2017 10:54
[2017-06-15 12:35] LABS: APTT (PATIENT) 42.4 SEC (24.3-30.1)
--- NOTE | 2017-06-15 14:28 | HHI.PR ---
Subjective Remarks On mechanical ventilation Objective Vital Signs Date Time Temp Pulse Resp B/P (MAP) Pulse Ox O2 Delivery O2 Flow Rate FiO2 06/15/17 12:09 98 40 06/15/17 11:00 74 06/15/17 11:00 95 Mechanical Ventilator 40 06/15/17 11:00 99.4 80 25 131/58 (82) 94 06/15/17 09:55 95 40 06/15/17 08:06 96 40 06/15/17 08:06 40 06/15/17 08:05 94 40 06/15/17 08:00 40 06/15/17 07:00 97.7 72 21 127/62 (83) 93 06/15/17 07:00 84 06/15/17 07:00 97 Mechanical Ventilator 40 06/15/17 05:04 95 40 06/15/17 04:00 40 06/15/17 03:00 84 06/15/17 03:00 97 Mechanical Ventilator 40 06/15/17 03:00 99.4 84 18 131/65 (87) 97 06/15/17 02:12 98 40 06/15/17 00:00 40 06/14/17 23:09 98 40 06/14/17 23:00 69 06/14/17 23:00 98 Mechanical Ventilator 40 06/14/17 23:00 99.9 69 20 108/49 (68) 98 06/14/17 20:08 98 40 06/14/17 20:00 40 06/14/17 19:00 68 06/14/17 19:00 98 Mechanical Ventilator 40 06/14/17 19:00 99.1 68 18 140/60 (86) 98 06/14/17 18:05 40 06/14/17 16:37 98 40 06/14/17 15:00 40 06/14/17 15:00 69 06/14/17 15:00 98 Mechanical Ventilator 40 06/14/17 15:00 97.7 69 21 142/64 (90) 99 I/O 06/14/17 06/14/17 06/14/17 06/15/17 06/15/17 06/15/17 07:00 15:00 23:00 07:00 15:00 23:00 Intake Total 1267 ml 250 ml 1000 ml 985 ml Output Total 577 ml 855 ml 510 ml Balance 690 ml 250 ml 145 ml 475 ml IV Total 420 ml 250 ml 12 ml Tube Feeding 338 ml 485 ml Tube Irrigant 367 ml 650 ml Other 480 ml 500 ml Output Urine Total 575 ml 855 ml 400 ml Chest Tube Drainage Total 2 ml 0 ml 110 ml # Bowel Movements 1 1 1 Result Diagram: 06/14/1741206/14/17412 Imaging Alert, on mechanical ventilation, follow verbal indication Lungs: ventilated Heart: s1, S2 regular abdomen: soft, no mass Ext: no edema Last Impressions Chest X-Ray 06/14/17 Signed Impressions: Service Date/Time: Wednesday, June 14, 2017 13:31 - CONCLUSION: 1. The small bore right-sided chest tube remains in place with no pneumothorax. 2. The patient remains intubated with central line in place. 3. Mild streaky opacity remains in both lungs without significant change. Pancho Crawford MD Upper Extremity Ultrasound 06/07/17 Signed Impressions: Service Date/Time: Wednesday, June 07, 2017 18:21 - CONCLUSION: 1. Limited exam but no deep venous thrombosis is identified bilaterally. Jamie Corrales MD Lower Extremity Ultrasound 06/07/17 Signed Impressions: Service Date/Time: Wednesday, June 07, 2017 17:57 - CONCLUSION: 1. Positive bilateral lower extremity deep venous thrombosis, nonocclusive as above. Jamie Corrales MD Head CT 06/07/17 Signed Impressions: Service Date/Time: Wednesday, June 07, 2017 17:01 - CONCLUSION: 1. No acute intracranial abnormality. 2. Extensive subcutaneous air tracking up from the chest. Luc Cain Jr., MD Cervical Spine CT 06/07/17 Signed Impressions: Service Date/Time: Wednesday, June 07, 2017 17:01 - CONCLUSION: 1. Extensive subcutaneous emphysema. 2. Tiny left apical pneumothorax. 3. Diffuse mild degenerative changes without central canal stenosis. Multilevel neural foraminal narrowing. 4. Prevertebral soft tissues obscured by an endotracheal tube and nasogastric tube. Luc Cain Jr., MD Chest Tube Insertion 06/05/17 Signed Impressions: Service Date/Time: May 09:15 - CONCLUSION: Uncomplicated chest tube placement as above. Maxwell Aldana MD Chest CT 10/19/17 0000 Signed Impressions: Service Date/Time: May 08:47 - CONCLUSION: 1. Moderate left-sided hemothorax with associated left lower lobe consolidation which may reflect a combination of compressive atelectasis, aspiration, and potentially lung infarction given recent pulmonary artery embolization. 2. Trace right apical pneumothorax with large bore chest tube in the major fissure and smallbore chest tube in the soft tissues. Significant subcutaneous emphysema extending to the cervicothoracic junction bilaterally. 3. Airspace consolidation in the right lower lobe posteriorly may reflect aspiration. Maxwell Aldana MD Embolization 06/03/17 0000 Signed Impressions: Service Date/Time: Saturday, June 03, 2017 00:00 - CONCLUSION: Left pulmonary artery rupture with successful coil embolization of a lower lobe branch vessel as above. Joselo Jennings MD Abdomen X-Ray 06/03/17 0000 Signed Impressions: Service Date/Time: Saturday, June 03, 2017 18:04 - CONCLUSION: Tip of the NG tube appears to be coiled in the stomach. Savana Valdovinos MD Current Medications Medications (Trade) Dose Ordered Sig/Padmini Route Start Time Stop Time Status Last Admin (Peridex 0.12% Liq) 15 ml BID@08,20 MT 06/03/17 20:00 06/15/17 07:37 (Duoneb Neb) 1 ampule Q2HR NEB PRN NEB 06/03/17 19:00 06/12/17 03:33 (Protonix Inj) 40 mg Q12H IV PUSH 06/03/17 20:00 06/15/17 09:08 Potassium Chloride 100 ml @ 50 mls/hr Q2H PRN IV 06/03/17 19:15 06/09/17 08:04 Potassium Chloride 100 ml @ 50 mls/hr Q2H PRN IV 06/03/17 19:15 (K-Lyte Cl Eff) 50 meq UNSCH PRN PO 06/03/17 19:15 Potassium Chloride 100 ml @ 25 mls/hr UNSCH PRN IV 06/03/17 19:15 06/06/17 18:46 Potassium Chloride 100 ml @ 50 mls/hr Q2H PRN IV 06/03/17 19:15 06/13/17 08:23 Magnesium Sulfate 4 gm/Sodium Chloride 100 ml @ 50 mls/hr UNSCH PRN IV 06/03/17 19:15 (Mag-Ox) 800 mg UNSCH PRN PO 06/03/17 19:15 Magnesium Sulfate 2 gm/Sodium Chloride 100 ml @ 50 mls/hr UNSCH PRN IV 06/03/17 19:15 06/04/17 16:45 (K-Phos) 2,000 mg Q4H PRN PO 06/03/17 19:15 Sodium Phosphate 30 mmol/Sodium Chloride 250 ml @ 42 mls/hr UNSCH PRN IV 06/03/17 19:15 (K-Phos) 2,000 mg UNSCH PRN PO/TUBE 06/03/17 19:15 Potassium Phosphate 30 mmol/ Sodium Chloride 260 ml @ 42 mls/hr UNSCH PRN IV 06/03/17 19:15 06/13/17 12:03 (D50w (Vial) Inj) 50 ml UNSCH PRN IV PUSH 06/04/17 12:15 (Glucagon Inj) 1 mg UNSCH PRN OTHER 06/04/17 12:15 (Lopressor Inj) 1.25 mg Q6H PRN IV PUSH 06/04/17 19:15 06/06/17 20:29 (Free Water) 250 ml Q6HR OG-TUBE 06/05/17 14:00 06/15/17 11:15 (Colace Liq) 100 mg Q12HR PO 06/05/17 14:00 06/15/17 08:42 (K-Lyte Cl Eff) 25 meq Q12HR PO 06/05/17 14:00 06/15/17 09:14 (Lanoxin) 0.125 mg DAILY PO 06/06/17 09:00 06/15/17 08:43 (Lasix Inj) 20 mg DAILY IV PUSH 06/07/17 09:00 06/15/17 09:08 (Lopressor) 25 mg Q8HR PO 06/07/17 14:00 06/15/17 14:01 Clevidipine 50 ml @ 2 mls/hr TITRATE PRN IV 06/07/17 07:00 06/09/17 08:02 (Cozaar) 50 mg DAILY PO 06/07/17 09:00 06/15/17 09:08 (Apresoline Inj) 20 mg Q4H PRN IV PUSH 06/07/17 08:00 06/14/17 01:21 (Synthroid) 50 mcg DAILY@0600 PO 06/07/17 08:00 06/15/17 06:22 (Promacta) 25 mg DAILY@1000 PO 06/08/17 10:00 06/15/17 09:09 Heparin Sodium/ Dextrose 250 ml @ 11 mls/hr TITRATE IV 06/07/17 22:00 06/14/17 22:16 (Heparin Inj) 5,000 units UNSCH PRN IV PUSH 06/07/17 22:00 (Heparin Inj) 2,500 units UNSCH PRN IV PUSH 06/07/17 22:00 (Pill Splitter) 1 ea UNSCH PRN OTHER 06/07/17 22:15 (NovoLOG SUPPLEMENTAL SCALE) 1 BID@0800,2000 SQ 06/08/17 20:00 06/15/17 08:43 (Mycostatin Liq) 5 ml QID SWISH-SWAL 06/12/17 13:00 06/15/17 12:52 Dexmedetomidine HCl 200 mcg/ Sodium Chloride 50 ml @ 3.1 mls/hr TITRATE PRN IV 06/13/17 06:15 06/15/17 14:13 (Cardizem) 60 mg Q6HR PO 06/13/17 12:00 06/15/17 12:51 Linezolid 300 ml @ 300 mls/hr Q12H IV 06/13/17 19:00 06/15/17 06:22 Fluconazole/ Sodium Chloride 100 ml @ 100 mls/hr Q24H IV 06/13/17 21:00 06/14/17 20:07 Cefepime HCl 2000 mg/Sodium Chloride 100 ml @ 200 mls/hr Q12H IV 06/14/17 21:00 06/15/17 09:33 Assessment and Plan Problem List: (1) Respiratory failure ICD Codes: J96.90 - Respiratory failure, unspecified, unspecified whether with hypoxia or hypercapnia Plan: Significantly improve (2) Pulmonary arterial thrombosis ICD Codes: I26.99 - Other pulmonary embolism without acute cor pulmonale Status: Acute Plan: Stable [place] by critical care (3) Aortic stenosis ICD Codes: I35.0 - Nonrheumatic aortic (valve) stenosis Plan: Further decision by Dr Corrales Medical management for now. Araceli Montero MD Jun 15, 2017 14:28
[2017-06-15] MEDS: RESP: ALBUTEROL 2.5 MG/IPRATROPIUM 0.5 MG NEB (PRN) NEB (19:56)
[2017-06-15] MEDS: FLUCONAZOLE 200 MG PREMIX BAG 100 ML IV SCH (21:12)
[2017-06-15] MEDS: HEPARIN 25,000 UNITS-D5W 250 ML - PREMIX IV SCH (23:15)
[2017-06-16] VITALS (17 sets, daily range): BP systolic 92–132; BP diastolic 45–68; PULSE 68–70; RESP 16–26; TEMP 98–98.7; O2SAT 97–99
[2017-06-16] MEDS: DILTIAZEM HCL 60 MG TAB PO SCH ×4 (01:34→17:26)
[2017-06-16] MEDS: DEXMEDETOMIDINE 200 MCG in NS 48 ML IV PRN ×5 (01:39→22:26)
[2017-06-16 04:47] LABS: AUTOMATED NEUTROPHIL # 12.9 TH/MM3 (1.8-7.7); BASOPHIL # 0.1 TH/MM3 (0-0.2); BASOPHIL % 0.4 % (0.0-2.0); EOSINOPHIL % 0.2 % (0.0-4.0); HEMO FLAGS DIFF FINAL; LYMPHOCYTE # 0.9 TH/MM3 (1.0-4.8); MEAN CELL VOLUME 87.2 FL (80.0-100.0); MEAN CORPUSCULAR HEMOGLOBIN 29.5 PG (27.0-34.0); MEAN CORPUSCULAR HGB CONC 33.9 % (32.0-36.0); MONO % 5.1 % (0.0-8.0); NEUT % 88.3 % (16.0-70.0); PLATELET COUNT 346 TH/MM3 (150-450); RED BLOOD COUNT 2.98 MIL/MM3 (4.00-5.30); RED CELL DISTRIBUTION WIDTH 15.9 % (11.6-17.2); WHITE BLOOD COUNT 14.6 TH/MM3 (4.0-11.0)
[2017-06-16 04:59] LABS: APTT (PATIENT) 49.9 SEC (24.3-30.1)
[2017-06-16 05:19] LABS: BICARBONATE 29.2 MEQ/L (21.0-32.0); POTASSIUM 4.2 MEQ/L (3.5-5.1)
[2017-06-16 05:33] LABS: CALCIUM-PROTEIN CORRECTED 8.7 MG/DL (8.5-10.1)
--- NOTE | 2017-06-16 05:56 | RADRPT ---
EXAM DATE/TIME: 06/16/2017 04:10 [facility] COMPARISON: CHEST EXPIRATION ONLY, June 13, 2017, 11:56. CHEST SINGLE AP, June 14, 2017, 13:31. INDICATIONS : Short of breath. MEDICAL HISTORY : Congestive heart failure. Hypertension. Carcinoma, colon. Aortic stenosis. SURGICAL HISTORY : Cardiac cath. Pacemaker. Tonsillectomy. ENCOUNTER: Subsequent ACUITY: 2 weeks PAIN SCORE: 0/10 LOCATION: Bilateral chest FINDINGS: Endotracheal tube is present with tip 3-4 cm above the mikel. Nasogastric tube descends into the sto mach. Right central line descends into the SVC. A right base thoracostomy tube is stable. A pigtail t horacostomy tube has been removed or dislodged. There is a pigtail tube seen overlying the right uppe r quadrant of the abdomen. There is consolidation in the left lung base and hazy parenchymal opacity upper lung zones. Pacemaker device is noted with control pack over the left chest. CONCLUSION: Worsening aeration in the left lung. Interval removal or dislodgment of right pigtail thoracostomy tu be Alvin Walls MD on June 16, 2017 at 5:51 Board Certified Radiologist. This report was verified electronically.
[2017-06-16] MEDS: FREE WATER OG-TUBE SCH ×4 (06:00→17:35)
[2017-06-16] MEDS: LEVOTHYROXINE SODIUM 50 MCG TAB PO SCH (06:17)
[2017-06-16] MEDS: METOPROLOL TARTRATE 25 MG TAB PO SCH ×3 (06:17→22:00)
[2017-06-16] MEDS: LINEZOLID 600 MG PREMIX 300 ML IV SCH ×2 (06:18→17:35)
[2017-06-16] MEDS ORDERED: FUROSEMIDE 20 MG/2 ML VIAL IV PUSH ONE (07:00)
[2017-06-16] MEDS ORDERED: FUROSEMIDE 20 MG/2 ML VIAL IV ONE (07:00)
--- NOTE | 2017-06-16 07:04 | HHI.CCPN ---
Subjective Remarks/Hospital Course I was emergently called to label cutter by Dr. Corrales. Ms. Mahoney who is 89 yo female with history of severe aortic stenosis was undergoing left and right heart catheter for TAVR evaluation. With right heart catheterization patient developed acute massive hemoptysis with shock secondary to acute rupture of pulmonary artery. Patient was intubated by Dr. Potter and ETT was advance to Right lung for selective right lung ventilation due to massive hemorrhage from Left lung. On my arrival to label cutter, patient was rapidly dropping blood pressure. Dopamine was already started. I ordered Shantanu-Synephrine, at 300 mcg/ m in an attempt to increase MAP and also increase the pulmonary vasoconstriction. Levophed was also added to maintain blood pressure and rapidly titrated up. Emergency release blood initially 3 units was ordered stat along with 2 units of FFP, 1 unit of platelet. I also emergently contacted Dr. Vásquez was in the office. (Dr. Bedoya the on-call CT surgeon was operating). While on Levophed Shantanu-Synephrine and dopamine, patient developed coarse V. fib/V. tach, received brief CPR, and was DC cardioverted 1 with return of spontaneous circulation and sinus rhythm. I discussed with Dr. Corrales and anesthesiologist, I also contacted Dr. Josue from invasive radiology.Dr. Josue immediately arrived to the label cutter. Dr. Abdelrahman francis performed PARVIN which showed vigorous LV contraction but cavity was empty. Received Continuous massive fluid resuscitation with multiple crystalloid boluses, bicarbonate and calcium. Blood arrived and initially 3 units of PRBC, 2 units of 1 unit of platelets was given with calcium total 3 g given after blood transfusion. Because of persistent hypotension, additional 2 units of PRBC was given. While I resuscitated the patient, Dr. Corrales and Dr. Jennings performed right heart cath, identified bleeding of a small branch in the left pulmonary artery. They put put in 6 coils in the lower left lower pulmonary artery followed with Gelfoam closing the perforation. 06/04: Emergency chest 2 yesterday for right pneumothorax with hypotension and hypoxia. Remains intubated sedated and on Levophed. FiO2 remains at 100%, Sat improving to 94-95 %. UO adequate overnight. 2-D echo on my review normal LV and RV function, no PFO on bubble study 06/05: Patient is in atrial fibrillation currently on Cardene infusion for blood pressure control. Chest x-ray shows percutaneous emphysema and small apical pneumothorax. Remains on 80% FiO2. I discussed with interventional radiology. We will attempt CT-guided repositioning of the pigtail catheter and possibly upgrading to a larger tube. Urine output adequate 750 mL in 24 hours 06/06: Currently remains in A. fib with rate controlled, hypertensive on Cardizem drip. Oxygen saturation has improved FiO2 now to 40% with saturation 97%. Urine output excellent with Lasix 4.5 L in 24 hours. Chest x-ray today shows 2.5 cm bilateral apical pneumothorax, also left side has 1.2 cm lateral pneumothorax 06/07: Intubated, on low dose propofol for ventilator synchrony. FiO2 40% oxygen saturation 99%. Chest x-ray and labs pending urine output 2.7 L. 3 chest tubes with no air leak. If neuro exam not improving off sedation will check CT of the head. Currently on propofol will exchange architect to Precedex to initiate weaning trials. On weaning doses of inhaled Flolan currently on 30, 000 ng 06/08: Remains intubated, mild sedation with Precedex. Overnight FiO2 increased to 65% for hypoxia. CXR left more than right consolidation of lower lobes. Sputum positive for MRSA on vancomycin. Bilateral lower extremity US studies yesterday showed DVT, initiated on IV heparin. Currently therapeutic on heparin. No evidence of pulmonary hemorrhage. Neuro exam is improving weekly follows commands all 4 extremities 06/09: remains intubated. failed CPAP yesterday. on Cleviprex and precedex. fio2 back to 40%. CXR improved aeration with the exception of known LLL. FC x 4. 06/10: failed SBT again for apnea. but much more awake. denies pain. ROS negative. off cleviprex. new air leak in chest tube. will get chest xray to re- eval. 06/11: Warm, well perfused. Alert, cooperative. Communicates with head nod, hand gestures. Comfortable respiratory pattern and acceptable excursions.Air leaks will seal when off positive pressure ventilation. FiO2 to 0.80 last night briefly; now 0.40. I'll come back later today and see if I can get her extubated. 06/12: Required re-intubation for hypoxemic respiratory failure last evening. She is now warm with well perfused fingers and toes. Low dose levophed not hampering peripheral perfusion. Mild prerenal azotemia. CXR with diffuse infiltrates as before. WBC 32,00, afebrile. Must assume colonized lungs at least. Antibiotic coverage is appropriate. Reculture sputum, urine. Progress to weaning trials daily.Hemodynamics appear excellent, rate a minor problem pretty well controlled. Continue Vanc. Stop pip/roxi, start cefepime. Narrow after cultures. Change CVLs, draw blood cultures. 06/13: Persistent leukocytosis, Tmax 100.2. O2 diffusion acceptable on positive pressure ventilation. Sputum culture pending. Remains warm and well perfused. Continue daily spontaneous breathing trials. 06/14: Bronch and BAL this morning by Dr. Muñoz. Gas exchange remains acceptable. Continue SBTs. 06/15: Looks great on SBTs/CPAP. She would benefit from a temporary tracheostomy. But she will eventually be off and extubated for good. C&S pending from BAL. Continue present abx regimen - discussed with Dr. Segura. 06/16: Awake alert following commands on vent. Currently on Precedex 0.5 g per KG per hour. Still has large amount of ETT secretions, but improving. R pigtail dislodged with turning, no pneumo on repeat CXR Objective Vital Signs Date Time Temp Pulse Resp B/P (MAP) Pulse Ox O2 Delivery O2 Flow Rate FiO2 06/16/17 04:14 97 40 06/16/17 03:00 68 06/16/17 03:00 98.7 18 92/45 (61) 06/16/17 03:00 Mechanical Ventilator Result Diagram: 06/16/17 0400 06/16/17 0400 Other Results Microbiology Date/Time Source Procedure Growth Status 06/13/17 22:00 Urine Catheterized Urine Urine Culture - Final Shayla Albicans Complete Objective Remarks GENERAL: Intubated. Alert. Moving extremities with purposefully. SKIN: Skin /dry. ENT: Orotracheally intubated. NECK: Trachea midline. Supple. CARDIOVASCULAR: Remains in atrial fibrillation, rate well controlled in 80 - 90. Systolic murmur over apex and LSB. RESPIRATORY: Continued sonorous coarse sounds. Good air entry at bases. Bilateral chest tubes with intermittent air leak left side. GASTROINTESTINAL: Abdomen Soft, no guarding. BS active. MUSCULOSKELETAL: New right IJ CVL. Limbs well perfused. NEUROLOGICAL: Patient is intubated. Follows commands. Awake, following commands x 4. RASS -0. A/P Assessment and Plan Assessment: 89yF with severe aortic stenosis, course complicated by Pulmonary Artery rupture during right heart catheterization, traumatic pneumothorax secondary to barotrauma, acute hypoxic respiratory failure, MRSA healthcare associated pneumonia, volume overload. Slowly improving but remains critically ill, some organ systems improved. failed extubation few days ago. daily SBTs and OOB to stretcher chair daily. NEURO: Encephalopathy, metabolic - resolved. - Precedex to facilitate neuro exam - Daily sedation vacation - Continue to hold home sertraline - CT of the head and C-spine negative for acute injury RESP: Left lower pulmonary artery rupture with massive hemorrhage Massive hemoptysis Acute hypoxemic respiratory failure MRSA pneumonia Large Left hemothorax s/p IR chest tube placement, residual L pneumo after evacuation Bilateral apical pneumothorax Bilateral lower extremity DVT - s/p coil and gelfoam closure of Left lower pulmonary artery (peripheral small branch) by Rhoda Corrales and Michaela (see resuscitation note on 06/03/17) - PC/AC mechanical ventilation PEEP of 8, Fio2 40%. Chest x-ray shows left lower lobe pneumonia - Chest x-ray confirms pneumonia vs lung infarct. Sputum with MRSA. on Zyvox - s/p chest tube x2 for right pneumothorax on 06/03. New apical chest tube placed 06/06/17 - IR, placed 24 F Left chest tube 06/05 with drainage of 2 L hemothorax, residual pneumothorax present, now resolved - CXR 06/07, resolution of right improving subcutaneous emphysema. Small residual left apical pneumo - s/p Bronchoscopy with removal of blood predominantly from L lung, s/p repeat bronch 06/06 - DuoNeb q 6hours and PRN. Flolan weaned off - Venous duplex -bilateral lower extremity DVT. IV heparin started 06/07/17 therapeutic - continue daily SBTs. still failing for weakness and apnea. - Required re-intubation 06/02 for hypoxemia. Proceed with attempt at extubation , if fails will proceed with tracheostomy - D/W with Dr. Langford and Dr. Corrales CV/Heme: Hemorrhagic shock-resolved Bilateral lower extremity DVT Anemia requiring transfusion Severe Aortic Stenosis Atrial fibrillation with RVR Possible history of ITP - IV heparin started 06/07/17 for bilateral lower extremity DVT and atrial fibrillation, watch closely for bloody chest tube output and hemoptysis - Continue home Cardizem CD 120 mg daily. - Cleviprex, when necessary hydralazine (well beta blocked) to keep systolic blood pressure less than 150 - Continue IV Lasix, 20 mg daily. Home metoprolol at 25 mg by mouth every 8 hours. Home dose of digoxin - On Multaq at home. Defer to Dr. Corrales - Received 6 units of emergency release blood, 2 units of FFP and one of platelets 06/03/17. Multiple crystalloid boluses were given, PARVIN normal LV contractility, volume depletion - 2D Echo 06/04 RV LV function look normal, no PFO - Promacta for ITP - hydralazine 50mg po q8hr and increased losartan to 100mg daily (06/09). now off cleviprex. GI: - OGT tube, IV Protonix. Tube feeds with Jevity. Having regular BMs : - Monitor renal function closely. Payne catheter. Urine output adequate - IV Lasix 20 daily with 20 mg IV additional dose ID: MRSA pneumonia - Continue cefepime and Zyvox. WBC improving - BAL culture MRSA. - Reculture sputum, blood, urine ENDO: Hypokalemia Hypomagnesemia - Replace electrolytes per protocol PROPH: - DCd SCDs due to DVT. IV Protonix. IV heparin started 06/07 LINES: - Left femoral cordis and central line D/c'd 06/04. New LIJ central line placed 06/04 -> out 06/12 New Left IJ CVL 06/12 Overall impression: Required re-intubation for diffusion problem. Consistent with interstitial edema and loss of FRC. Continue daily SBTs, maintain diaphragm strength. ID following.. BAL She still coughs up residual blood. She will benefit from trach for a couple of weeks, but will attempt to extubate once more prior to trach. Tanika Esquivel MD Jun 16, 2017 07:04
--- NOTE | 2017-06-16 07:39 | RADRPT ---
EXAM DATE/TIME: 06/16/2017 06:09 [facility] COMPARISON: CHEST SINGLE AP, June 14, 2017, 13:31. CHEST SINGLE AP, June 16, 2017, 4:10. INDICATIONS : Pigtaail chest tube dislodged, rule out pneumothorax. MEDICAL HISTORY : Congestive heart failure. Hypertension Carcinoma, colon. Aortic stenosis. SURGICAL HISTORY : Pacemaker. Tonsillectomy. Cardiac cath. ENCOUNTER: Subsequent ACUITY: 2 weeks PAIN SCORE: 0/10 LOCATION: Bilateral chest FINDINGS: Stable ETT, right IJ central line, and right large bore inferior chest tube. A pigtail chest tube avril t was previously in the superior hemithorax and then in the inferior right hemithorax has been remove d. There is no significant pneumothorax. Redemonstration of bilateral, left greater than right, lower lobe pleural-parenchymal disease. Cardiomediastinal contours are stable. Remainder of the exam is un changed. CONCLUSION: 1. No significant pneumothorax following removal of right-sided chest tube. 2. Stable bilateral, left greater than right, lower lung zone pleural-parenchymal disease. Maxwell Aldana MD on June 16, 2017 at 7:34 Board Certified Radiologist. This report was verified electronically.
[2017-06-16] MEDS: INSULIN ASPART SUPPLEMENTAL SCALE SQ SCH ×2 (08:00→20:00)
[2017-06-16] MEDS: CHLORHEXIDINE 0.12% (ORAL KIT) 15 ML CUP MT SCH ×2 (08:13→20:35)
[2017-06-16] MEDS: PANTOPRAZOLE SODIUM 40 MG VIAL IV PUSH SCH ×2 (08:34→20:35)
[2017-06-16] MEDS: FUROSEMIDE 20 MG/2 ML VIAL IV PUSH SCH (08:35)
[2017-06-16] MEDS: LOSARTAN 50 MG TAB PO SCH (08:35)
[2017-06-16] MEDS: DIGOXIN 0.125 MG TAB PO SCH (08:35)
[2017-06-16] MEDS: POTASSIUM CHLORIDE 25 MEQ EFFERVESCENT TAB PO SCH ×2 (08:35→20:38)
[2017-06-16] MEDS: NYSTATIN SUSP 500,000 U/5 ML CUP SWISH-SWAL SCH ×4 (08:36→20:38)
[2017-06-16] MEDS: DOCUSATE SODIUM 100 MG/10 ML UDC PO SCH ×2 (08:36→20:38)
[2017-06-16] MEDS: ELTROMBOPAG 50 MG TAB PO SCH (09:04)
[2017-06-16 09:12] LABS: BLOOD GAS BASE EXCESS 3.6 mmol/L (-2-2); BLOOD GAS CARBOXYHEMOGLOBIN 1.3 % (0-4); BLOOD GAS HCO3 27 mmol/L (22-26); BLOOD GAS METHEMOGLOBIN 1.2 % (0-2); BLOOD GAS O2 HGB SATURATION 97 % (90-100); BLOOD GAS OXYGEN CONTENT 17.2 Vol % (12.0-20.0); BLOOD GAS PCO2 37 mmHg (38-42); BLOOD GAS PO2 137 mmHg (61-120); BLOOD GAS TOTAL HGB 12.5 G/DL (12.0-16.0); TEMP CORR TO 98.6
[2017-06-16 09:13] LABS: CRITICAL VALUE NO; DRAW SITE RT RADIAL; FIO2 40 %; NUMBER OF ARTERIAL PUNCTURES 1; OXYGEN DEVICE VENTILATOR; STAT NO; VENT SETTINGS CPAPPEEP5/PS5
[2017-06-16] MEDS: CEFEPIME INJ 2,000 MG in SODIUM CHLORIDE 0.9% INJ 100 ML IV SCH ×2 (09:14→20:36)
--- NOTE | 2017-06-16 09:18 | RADRPT ---
EXAM DATE/TIME: 06/13/2017 00:00 [facility] COMPARISON: CHEST EXPIRATION ONLY, June 13, 2017, 11:56. INDICATIONS : HEMOTHORAX DEVICE(S): 1.) Vaseline occlusive dressing PROCEDURE : Chest tube removal. Using aseptic technique the previously placed chest tube was easily removed in one piece and Vaseline gauze and sterile dressing was applied. Chest radiograph is to be obtained. CONCLUSION: Uncomplicated chest tube removal. Joselo Jennings MD on June 16, 2017 at 9:16 Board Certified Radiologist. This report was verified electronically.
--- NOTE | 2017-06-16 09:38 | PD.CARD.PN ---
Subjective Subjective Remarks Intubated Opening eyes and moving extremities, following commands On Heparin gtt Afebrile, WBC trending down Large amount of ETT secretions, but improving. Objective Medications Current Medications Medications (Trade) Dose Ordered Sig/Padmini Route Start Time Stop Time Status Last Admin (Peridex 0.12% Liq) 15 ml BID@08,20 MT 06/03/17 20:00 06/16/17 08:13 (Duoneb Neb) 1 ampule Q2HR NEB PRN NEB 06/03/17 19:00 06/15/17 19:56 (Protonix Inj) 40 mg Q12H IV PUSH 06/03/17 20:00 06/16/17 08:34 Potassium Chloride 100 ml @ 50 mls/hr Q2H PRN IV 06/03/17 19:15 06/09/17 08:04 Potassium Chloride 100 ml @ 50 mls/hr Q2H PRN IV 06/03/17 19:15 (K-Lyte Cl Eff) 50 meq UNSCH PRN PO 06/03/17 19:15 Potassium Chloride 100 ml @ 25 mls/hr UNSCH PRN IV 06/03/17 19:15 06/06/17 18:46 Potassium Chloride 100 ml @ 50 mls/hr Q2H PRN IV 06/03/17 19:15 06/13/17 08:23 Magnesium Sulfate 4 gm/Sodium Chloride 100 ml @ 50 mls/hr UNSCH PRN IV 06/03/17 19:15 (Mag-Ox) 800 mg UNSCH PRN PO 06/03/17 19:15 Magnesium Sulfate 2 gm/Sodium Chloride 100 ml @ 50 mls/hr UNSCH PRN IV 06/03/17 19:15 06/04/17 16:45 (K-Phos) 2,000 mg Q4H PRN PO 06/03/17 19:15 Sodium Phosphate 30 mmol/Sodium Chloride 250 ml @ 42 mls/hr UNSCH PRN IV 06/03/17 19:15 (K-Phos) 2,000 mg UNSCH PRN PO/TUBE 06/03/17 19:15 Potassium Phosphate 30 mmol/ Sodium Chloride 260 ml @ 42 mls/hr UNSCH PRN IV 06/03/17 19:15 06/13/17 12:03 (D50w (Vial) Inj) 50 ml UNSCH PRN IV PUSH 06/04/17 12:15 (Glucagon Inj) 1 mg UNSCH PRN OTHER 06/04/17 12:15 (Lopressor Inj) 1.25 mg Q6H PRN IV PUSH 06/04/17 19:15 06/06/17 20:29 (Free Water) 250 ml Q6HR OG-TUBE 06/05/17 14:00 06/16/17 06:00 (Colace Liq) 100 mg Q12HR PO 06/05/17 14:00 06/16/17 08:36 (K-Lyte Cl Eff) 25 meq Q12HR PO 06/05/17 14:00 06/16/17 08:35 (Lanoxin) 0.125 mg DAILY PO 06/06/17 09:00 06/16/17 08:35 (Lasix Inj) 20 mg DAILY IV PUSH 06/07/17 09:00 06/16/17 08:35 (Lopressor) 25 mg Q8HR PO 06/07/17 14:00 06/16/17 06:17 Clevidipine 50 ml @ 2 mls/hr TITRATE PRN IV 06/07/17 07:00 06/09/17 08:02 (Cozaar) 50 mg DAILY PO 06/07/17 09:00 06/16/17 08:35 (Apresoline Inj) 20 mg Q4H PRN IV PUSH 06/07/17 08:00 06/14/17 01:21 (Synthroid) 50 mcg DAILY@0600 PO 06/07/17 08:00 06/16/17 06:17 (Promacta) 25 mg DAILY@1000 PO 06/08/17 10:00 06/16/17 09:04 (Heparin Inj) 5,000 units UNSCH PRN IV PUSH 06/07/17 22:00 (Heparin Inj) 2,500 units UNSCH PRN IV PUSH 06/07/17 22:00 (Pill Splitter) 1 ea UNSCH PRN OTHER 06/07/17 22:15 (NovoLOG SUPPLEMENTAL SCALE) 1 BID@0800,2000 SQ 06/08/17 20:00 06/15/17 08:43 (Mycostatin Liq) 5 ml QID SWISH-SWAL 06/12/17 13:00 06/16/17 08:36 Dexmedetomidine HCl 200 mcg/ Sodium Chloride 50 ml @ 3.1 mls/hr TITRATE PRN IV 06/13/17 06:15 06/16/17 04:00 (Cardizem) 60 mg Q6HR PO 06/13/17 12:00 06/16/17 06:17 Linezolid 300 ml @ 300 mls/hr Q12H IV 06/13/17 19:00 06/16/17 06:18 Fluconazole/ Sodium Chloride 100 ml @ 100 mls/hr Q24H IV 06/13/17 21:00 06/15/17 21:12 Cefepime HCl 2000 mg/Sodium Chloride 100 ml @ 200 mls/hr Q12H IV 06/14/17 21:00 06/16/17 09:14 Heparin Sodium/ Dextrose 250 ml @ 11 mls/hr TITRATE IV 06/16/17 07:30 Vital Signs / I&O Vital Signs Date Time Temp Pulse Resp B/P (MAP) Pulse Ox O2 Delivery O2 Flow Rate FiO2 06/16/17 09:20 98 40 06/16/17 07:47 99 40 06/16/17 07:39 97 40 06/16/17 04:14 97 40 06/16/17 04:00 40 06/16/17 03:00 68 06/16/17 03:00 98.7 68 18 92/45 (61) 97 06/16/17 03:00 97 Mechanical Ventilator 40 06/16/17 01:43 98 40 06/16/17 00:00 40 06/15/17 23:17 99 40 06/15/17 23:00 71 06/15/17 23:00 99 Mechanical Ventilator 40 06/15/17 23:00 98.7 71 18 126/60 (82) 98 06/15/17 20:00 40 06/15/17 19:57 98 40 06/15/17 19:00 99 Mechanical Ventilator 40 06/15/17 19:00 75 06/15/17 19:00 99.7 75 18 163/64 (97) 99 06/15/17 16:41 98 40 06/15/17 16:00 40 06/15/17 15:00 98.5 76 17 134/59 (84) 95 06/15/17 15:00 78 06/15/17 15:00 95 Mechanical Ventilator 40 06/15/17 12:09 98 40 06/15/17 11:00 74 06/15/17 11:00 95 Mechanical Ventilator 40 06/15/17 11:00 99.4 80 25 131/58 (82) 94 06/15/17 09:55 95 40 I/O 06/15/17 06/15/17 06/15/17 06/16/17 06/16/17 06/16/17 07:00 15:00 23:00 07:00 15:00 23:00 Intake Total 985 ml 1373 ml 978 ml Output Total 510 ml 910 ml 470 ml Balance 475 ml 463 ml 508 ml IV Total 425 ml Tube Feeding 485 ml 448 ml 478 ml Other 500 ml 500 ml 500 ml Output Urine Total 400 ml 890 ml 450 ml Chest Tube Drainage Total 110 ml 20 ml 20 ml # Bowel Movements 1 1 2 Physical Exam GENERAL: Intubated, pupils reactive, Alert, awake, oriented SKIN: Warm and dry. HEAD: Normocephalic. EYES: No scleral icterus. No injection or drainage. NECK: Supple, trachea midline. No JVD or lymphadenopathy. CARDIOVASCULAR: Irr Irr 2/6SEM no gallops, or rubs. RESPIRATORY: Vented. GASTROINTESTINAL: Abdomen soft, non-tender, nondistended. EXTREMITIES: No cyanosis, or +edema. Laboratory Laboratory Tests Test 06/15/17 12:10 06/16/17 04:00 06/16/17 08:57 Activated Partial Thromboplast Time 42.4 SEC 49.9 SEC White Blood Count 14.6 TH/MM3 Red Blood Count 2.98 MIL/MM3 Hemoglobin 8.8 GM/DL Hematocrit 26.0 % Mean Corpuscular Volume 87.2 FL Mean Corpuscular Hemoglobin 29.5 PG Mean Corpuscular Hemoglobin Concent 33.9 % Red Cell Distribution Width 15.9 % Platelet Count 346 TH/MM3 Mean Platelet Volume 8.2 FL Neutrophils (%) (Auto) 88.3 % Lymphocytes (%) (Auto) 6.0 % Monocytes (%) (Auto) 5.1 % Eosinophils (%) (Auto) 0.2 % Basophils (%) (Auto) 0.4 % Neutrophils # (Auto) 12.9 TH/MM3 Lymphocytes # (Auto) 0.9 TH/MM3 Monocytes # (Auto) 0.7 TH/MM3 Eosinophils # (Auto) 0.0 TH/MM3 Basophils # (Auto) 0.1 TH/MM3 CBC Comment DIFF FINAL Differential Comment Blood Urea Nitrogen 33 MG/DL Creatinine 0.60 MG/DL Random Glucose 109 MG/DL Total Protein 4.8 GM/DL Calcium Level 7.4 MG/DL Sodium Level 134 MEQ/L Potassium Level 4.2 MEQ/L Chloride Level 101 MEQ/L Carbon Dioxide Level 29.2 MEQ/L Anion Gap 4 MEQ/L Estimat Glomerular Filtration Rate 94 ML/MIN Protein Corrected Calcium 8.7 MG/DL B-Type Natriuretic Peptide 369 PG/ML Blood Gas Puncture Site RT RADIAL Blood Gas Patient Temperature 98.6 Blood Gas HCO3 27 mmol/L Blood Gas Base Excess 3.6 mmol/L Blood Gas Oxygen Saturation 97 % Arterial Blood pH 7.48 Arterial Blood Partial Pressure CO2 37 mmHg Arterial Blood Partial Pressure O2 137 mmHg Arterial Blood Oxygen Content 17.2 Vol % Arterial Blood Carboxyhemoglobin 1.3 % Arterial Blood Methemoglobin 1.2 % Blood Gas Hemoglobin 12.5 G/DL Oxygen Delivery Device VENTILATOR Blood Gas Ventilator Setting [id number] Blood Gas Inspired Oxygen 40 % Imaging Last 24 hours Impressions Chest X-Ray 06/16/17 0400 Signed Impressions: Service Date/Time: Friday, June 16, 2017 04:10 - CONCLUSION: Worsening aeration in the left lung. Interval removal or dislodgment of right pigtail thoracostomy tube Alvin Walls MD Chest X-Ray 06/16/17 0000 Signed Impressions: Service Date/Time: Friday, June 16, 2017 06:09 - CONCLUSION: 1. No significant pneumothorax following removal of right-sided chest tube. 2. Stable bilateral, left greater than right, lower lung zone pleural-parenchymal disease. Maxwell Aldana MD Assessment and Plan Problem List: (1) Shock, postoperative ICD Codes: T81.10XA - Postprocedural shock unspecified, initial encounter Status: Resolved Plan: Moving extremities, pupils reactive H&H stable V paced Afebrile, hemodynamically stable Recommendations: - Avoid electrolytes imbalance - Cont rate control for afib - Cont Heparin drip (H&H stable) - Appreciate ID recs. Started on IV Linezolid - Out o bed to chair - PT/OT - Ventilator management per Lead Trainer Case discuss with Lead Trainer and Family (2) Pulmonary arterial thrombosis ICD Codes: I26.99 - Other pulmonary embolism without acute cor pulmonale Status: Acute (3) CAD (coronary artery disease) ICD Codes: I25.10 - Atherosclerotic heart disease of [place] coronary artery without angina pectoris (4) Aortic stenosis ICD Codes: I35.0 - Nonrheumatic aortic (valve) stenosis Brad Page MD Jun 16, 2017 09:38
--- NOTE | 2017-06-16 11:10 | HHI.IDPN ---
Subjective Subjective Remarks Ms. Mahoney who is 89 yo female with history of severe aortic stenosis who was undergoing left and right heart catheter for TAVR evaluation. With right heart catheterization patient developed acute massive hemoptysis with shock secondary to acute rupture of pulmonary artery. Patient was intubated by Dr. Potter and ETT was advance to Right lung for selective right lung ventilation due to massive hemorrhage from Left lung. While on Levophed Shantanu-Synephrine and dopamine , patient developed coarse V. fib/V. tach, received brief CPR, and was DC cardioverted 1 with return of spontaneous circulation and sinus rhythm. A PARVIN was performed which showed vigorous LV contraction but cavity was empty. Patient received continuous massive fluid resuscitation with multiple crystalloid boluses, bicarbonate and calcium. Patient needed resuscitation and blood products were instilled. Dr. Jennings performed right heart cath, identified bleeding of a small branch in the left pulmonary artery. They put put in 6 coils in the lower left lower pulmonary artery followed with Gelfoam closing the perforation. Other pertinent events in ICU stay: 06/04: Emergency chest 2 yesterday for right pneumothorax with hypotension and hypoxia. 06/05: Patient was in Atrial fibrillation currently on Cardene infusion for blood pressure control. Chest x-ray shows percutaneous emphysema and small apical pneumothorax. 06/08: Overnight FiO2 increased to 65% for hypoxia. CXR left more than right consolidation of lower lobes. Sputum positive for MRSA on vancomycin. Bilateral lower extremity US studies showed DVT, initiated on IV heparin. 06/11: Extubated. Required re-intubation for hypoxemic respiratory failure on . 06/13: Persistent leukocytosis, Tmax 100.2. At the time of my evaluation, pt is in the CCU on ventilator CPAP trials being attempted. UO good. Has CTs in place. Not on pressors. Opens eyes follows commands, writes on a note pad. Due to new fever and WBC elevation ID was consulted. Avilez cultures obtained earlier. Overnight events reviewed. No fevers No rash No diarrhea. Loose stool but recd stool softeners. Intubated but awake and follows commands, uses a note pad to write to communicate. UO good. CT [address] 2 CTs out today. RN informs me plan for trach possibly. Antibiotics I attest I reviewed, obtained or updated the patient's home medications and current medications for name, dose, frequency, route of administration. Reported Meds & Active Scripts Active Reported Centrum (Multiple Vitamins W/ Minerals) 1 Chew 1 Tab CHEW DAILY Pantoprazole (Pantoprazole Sodium) 40 Mg Tab 40 Mg PO DAILY Eq Mucus ER (Guaifenesin) 600 Mg Tab 600 Mg PO DAILY Warfarin 4 Mg Tab 4 Mg PO DAILY Sertraline (Sertraline HCl) 25 Mg Tab 25 Mg PO DAILY Promacta (Eltrombopag) 75 Mg Tab 50 Mg PO DAILY Potassium Chloride ER (Potassium Chloride) 10 Meq Cap 10 Meq PO DAILY MDD 20 Take 2 capsules Multaq (Dronedarone) 400 Mg Tab 400 Mg PO BID Metoprolol Tartrate 50 Mg Tab 50 Mg PO DAILY Losartan (Losartan Potassium) 50 Mg Tab 50 Mg PO DAILY Lipitor (Atorvastatin Calcium) 10 Mg Tab 10 Mg PO HS Levothyroxine (Levothyroxine Sodium) 50 Mcg Tab 50 Mcg PO DAILY Furosemide 20 Mg Tab 20 Mg PO DAILY Digox (Digoxin) 0.125 Mg Tab 0.125 Mg PO DAILY Folic Acid 0.4 Mg Tab 1 Mg PO DAILY Cardizem CD 24 HR (Diltiazem CD 24 HR) 120 Mg Caper 120 Mg PO DAILY Current Medications Medications (Trade) Dose Ordered Sig/Padmini Route Start Time Stop Time Status Last Admin (Peridex 0.12% Liq) 15 ml BID@08,20 MT 06/03/17 20:00 06/16/17 08:13 (Duoneb Neb) 1 ampule Q2HR NEB PRN NEB 06/03/17 19:00 06/15/17 19:56 (Protonix Inj) 40 mg Q12H IV PUSH 06/03/17 20:00 06/16/17 08:34 Potassium Chloride 100 ml @ 50 mls/hr Q2H PRN IV 06/03/17 19:15 06/09/17 08:04 Potassium Chloride 100 ml @ 50 mls/hr Q2H PRN IV 06/03/17 19:15 (K-Lyte Cl Eff) 50 meq UNSCH PRN PO 06/03/17 19:15 Potassium Chloride 100 ml @ 25 mls/hr UNSCH PRN IV 06/03/17 19:15 06/06/17 18:46 Potassium Chloride 100 ml @ 50 mls/hr Q2H PRN IV 06/03/17 19:15 06/13/17 08:23 Magnesium Sulfate 4 gm/Sodium Chloride 100 ml @ 50 mls/hr UNSCH PRN IV 06/03/17 19:15 (Mag-Ox) 800 mg UNSCH PRN PO 06/03/17 19:15 Magnesium Sulfate 2 gm/Sodium Chloride 100 ml @ 50 mls/hr UNSCH PRN IV 06/03/17 19:15 06/04/17 16:45 (K-Phos) 2,000 mg Q4H PRN PO 06/03/17 19:15 Sodium Phosphate 30 mmol/Sodium Chloride 250 ml @ 42 mls/hr UNSCH PRN IV 06/03/17 19:15 (K-Phos) 2,000 mg UNSCH PRN PO/TUBE 06/03/17 19:15 Potassium Phosphate 30 mmol/ Sodium Chloride 260 ml @ 42 mls/hr UNSCH PRN IV 06/03/17 19:15 06/13/17 12:03 (D50w (Vial) Inj) 50 ml UNSCH PRN IV PUSH 06/04/17 12:15 (Glucagon Inj) 1 mg UNSCH PRN OTHER 06/04/17 12:15 (Lopressor Inj) 1.25 mg Q6H PRN IV PUSH 06/04/17 19:15 06/06/17 20:29 (Free Water) 250 ml Q6HR OG-TUBE 06/05/17 14:00 06/16/17 06:00 (Colace Liq) 100 mg Q12HR PO 06/05/17 14:00 06/16/17 08:36 (K-Lyte Cl Eff) 25 meq Q12HR PO 06/05/17 14:00 06/16/17 08:35 (Lanoxin) 0.125 mg DAILY PO 06/06/17 09:00 06/16/17 08:35 (Lasix Inj) 20 mg DAILY IV PUSH 06/07/17 09:00 06/16/17 08:35 (Lopressor) 25 mg Q8HR PO 06/07/17 14:00 06/16/17 06:17 Clevidipine 50 ml @ 2 mls/hr TITRATE PRN IV 06/07/17 07:00 06/09/17 08:02 (Cozaar) 50 mg DAILY PO 06/07/17 09:00 06/16/17 08:35 (Apresoline Inj) 20 mg Q4H PRN IV PUSH 06/07/17 08:00 06/14/17 01:21 (Synthroid) 50 mcg DAILY@0600 PO 06/07/17 08:00 06/16/17 06:17 (Promacta) 25 mg DAILY@1000 PO 06/08/17 10:00 06/16/17 09:04 (Heparin Inj) 5,000 units UNSCH PRN IV PUSH 06/07/17 22:00 (Heparin Inj) 2,500 units UNSCH PRN IV PUSH 06/07/17 22:00 (Pill Splitter) 1 ea UNSCH PRN OTHER 06/07/17 22:15 (NovoLOG SUPPLEMENTAL SCALE) 1 BID@0800,2000 SQ 06/08/17 20:00 06/15/17 08:43 (Mycostatin Liq) 5 ml QID SWISH-SWAL 06/12/17 13:00 06/16/17 08:36 Dexmedetomidine HCl 200 mcg/ Sodium Chloride 50 ml @ 3.1 mls/hr TITRATE PRN IV 06/13/17 06:15 06/16/17 09:30 (Cardizem) 60 mg Q6HR PO 06/13/17 12:00 06/16/17 06:17 Linezolid 300 ml @ 300 mls/hr Q12H IV 06/13/17 19:00 06/16/17 06:18 Fluconazole/ Sodium Chloride 100 ml @ 100 mls/hr Q24H IV 06/13/17 21:00 06/15/17 21:12 Cefepime HCl 2000 mg/Sodium Chloride 100 ml @ 200 mls/hr Q12H IV 06/14/17 21:00 06/16/17 09:14 Heparin Sodium/ Dextrose 250 ml @ 11 mls/hr TITRATE IV 06/16/17 07:30 Lines Line sites with no e.o infection Past Medical History Hypertension Coronary artery disease Paroxysmal atrial fibrillation ITP Anemia Aortic stenosis severe Hypercholesterolemia Hypothyroidism Malignant colonic neoplasm Right hearing loss Pacemaker insertion January 29, 2013 Tonsillectomy Hernia Cataract PTCA Partial colectomy in 1999 Allergies: Coded Allergies: Sulfa (Sulfonamide Antibiotics) (Unverified Allergy, Severe, 06/03/17) promethazine (Unverified Allergy, Severe, 06/03/17) adhesive (Unverified Allergy, Unknown, 06/03/17) Objective . Vital Signs Date Time Temp Pulse Resp B/P (MAP) Pulse Ox O2 Delivery O2 Flow Rate FiO2 06/16/17 09:20 98 40 06/16/17 07:47 99 40 06/16/17 07:39 97 40 06/16/17 04:14 97 40 06/16/17 04:00 40 06/16/17 03:00 68 06/16/17 03:00 98.7 68 18 92/45 (61) 97 06/16/17 03:00 97 Mechanical Ventilator 40 06/16/17 01:43 98 40 06/16/17 00:00 40 06/15/17 23:17 99 40 06/15/17 23:00 71 06/15/17 23:00 99 Mechanical Ventilator 40 06/15/17 23:00 98.7 71 18 126/60 (82) 98 06/15/17 20:00 40 06/15/17 19:57 98 40 06/15/17 19:00 99 Mechanical Ventilator 40 06/15/17 19:00 75 06/15/17 19:00 99.7 75 18 163/64 (97) 99 06/15/17 16:41 98 40 06/15/17 16:00 40 06/15/17 15:00 98.5 76 17 134/59 (84) 95 06/15/17 15:00 78 06/15/17 15:00 95 Mechanical Ventilator 40 06/15/17 12:09 98 40 . Laboratory Tests Test 06/16/17 04:00 White Blood Count 14.6 TH/MM3 Red Blood Count 2.98 MIL/MM3 Hemoglobin 8.8 GM/DL Hematocrit 26.0 % Mean Corpuscular Volume 87.2 FL Mean Corpuscular Hemoglobin 29.5 PG Mean Corpuscular Hemoglobin Concent 33.9 % Red Cell Distribution Width 15.9 % Platelet Count 346 TH/MM3 Mean Platelet Volume 8.2 FL Neutrophils (%) (Auto) 88.3 % Lymphocytes (%) (Auto) 6.0 % Monocytes (%) (Auto) 5.1 % Eosinophils (%) (Auto) 0.2 % Basophils (%) (Auto) 0.4 % Neutrophils # (Auto) 12.9 TH/MM3 Lymphocytes # (Auto) 0.9 TH/MM3 Monocytes # (Auto) 0.7 TH/MM3 Eosinophils # (Auto) 0.0 TH/MM3 Basophils # (Auto) 0.1 TH/MM3 CBC Comment DIFF FINAL Differential Comment Laboratory Tests Test 06/16/17 04:00 Blood Urea Nitrogen 33 MG/DL Creatinine 0.60 MG/DL Random Glucose 109 MG/DL Total Protein 4.8 GM/DL Calcium Level 7.4 MG/DL Sodium Level 134 MEQ/L Potassium Level 4.2 MEQ/L Chloride Level 101 MEQ/L Carbon Dioxide Level 29.2 MEQ/L Anion Gap 4 MEQ/L Estimat Glomerular Filtration Rate 94 ML/MIN Protein Corrected Calcium 8.7 MG/DL B-Type Natriuretic Peptide 369 PG/ML Microbiology Date/Time Source Procedure Growth Status 06/14/17 12:00 Bronchial Washings Left Lower Lobe Gram Stain - Final Resulted 06/14/17 12:00 Bronchial Culture - Preliminary S. Aureus Mrsa Resulted 06/14/17 12:00 Bronchial Washings Right Lower Lobe Gram Stain - Final Resulted 06/14/17 12:00 Bronchial Culture - Preliminary S. Aureus Mrsa Resulted 06/14/17 12:00 Bronchial Washings Right Lower Lobe Fungal Smear - Final NO FUNGAL ELEMENTS SEEN. Resulted 06/14/17 12:00 Bronchial Washings Right Lower Lobe Fungal Culture Pending Resulted 06/14/17 12:00 Bronchial Washings Left Lower Lobe Fungal Smear - Final NO FUNGAL ELEMENTS SEEN. Resulted 06/14/17 12:00 Bronchial Washings Left Lower Lobe Fungal Culture Pending Resulted 06/14/17 12:00 Bronchial Washings Right Lower Lobe Acid Fast Stain Pending Received 06/14/17 12:00 Bronchial Washings Right Lower Lobe Mycobacterial Culture Pending Received 06/14/17 12:00 Bronchial Washings Left Lower Lobe Acid Fast Stain Pending Received 06/14/17 12:00 Bronchial Washings Left Lower Lobe Mycobacterial Culture Pending Received 06/13/17 22:00 Urine Catheterized Urine Urine Culture - Final Shayla Albicans Complete Imaging Last Impressions Chest X-Ray 06/16/17 0400 Signed Impressions: Service Date/Time: Friday, June 16, 2017 04:10 - CONCLUSION: Worsening aeration in the left lung. Interval removal or dislodgment of right pigtail thoracostomy tube Alvin Walls MD Tunnelled Chest Tube Removal 06/13/17 0000 Signed Impressions: Service Date/Time: Tuesday, June 13, 2017 00:00 - CONCLUSION: Uncomplicated chest tube removal. Joselo Jennings MD Upper Extremity Ultrasound 06/07/17 Signed Impressions: Service Date/Time: Wednesday, June 07, 2017 18:21 - CONCLUSION: 1. Limited exam but no deep venous thrombosis is identified bilaterally. Jamie Corrales MD Lower Extremity Ultrasound 06/07/17 Signed Impressions: Service Date/Time: Wednesday, June 07, 2017 17:57 - CONCLUSION: 1. Positive bilateral lower extremity deep venous thrombosis, nonocclusive as above. Jamie Corrales MD Head CT 06/07/17 Signed Impressions: Service Date/Time: Wednesday, June 07, 2017 17:01 - CONCLUSION: 1. No acute intracranial abnormality. 2. Extensive subcutaneous air tracking up from the chest. Luc Cain Jr., MD Cervical Spine CT 06/07/17 Signed Impressions: Service Date/Time: Wednesday, June 07, 2017 17:01 - CONCLUSION: 1. Extensive subcutaneous emphysema. 2. Tiny left apical pneumothorax. 3. Diffuse mild degenerative changes without central canal stenosis. Multilevel neural foraminal narrowing. 4. Prevertebral soft tissues obscured by an endotracheal tube and nasogastric tube. Luc Cain Jr., MD Chest Tube Insertion 06/05/17 Signed Impressions: Service Date/Time: May 09:15 - CONCLUSION: Uncomplicated chest tube placement as above. Maxwell Aldana MD Chest CT 06/05/17 Signed Impressions: Service Date/Time: May 08:47 - CONCLUSION: 1. Moderate left-sided hemothorax with associated left lower lobe consolidation which may reflect a combination of compressive atelectasis, aspiration, and potentially lung infarction given recent pulmonary artery embolization. 2. Trace right apical pneumothorax with large bore chest tube in the major fissure and smallbore chest tube in the soft tissues. Significant subcutaneous emphysema extending to the cervicothoracic junction bilaterally. 3. Airspace consolidation in the right lower lobe posteriorly may reflect aspiration. Maxwell Aldnaa MD Embolization 06/03/17 Signed Impressions: Service Date/Time: Saturday, June 03, 2017 00:00 - CONCLUSION: Left pulmonary artery rupture with successful coil embolization of a lower lobe branch vessel as above. Joselo Jennings MD Abdomen X-Ray 10/17/17 0000 Signed Impressions: Service Date/Time: Saturday, June 03, 2017 18:04 - CONCLUSION: Tip of the NG tube appears to be coiled in the stomach. Savana Valdovinos MD Physical Exam GENERAL: This is a well-nourished, well-developed patient, in no apparent distress. SKIN: No rashes, ecchymoses or lesions. Cool and dry. HEAD: Atraumatic. Normocephalic. No temporal or scalp tenderness. EYES: Pupils equal round and reactive. Extraocular motions intact. No scleral icterus. No injection or drainage. ENT: Intubated. NECK: Trachea midline. Supple, nontender, no meningeal signs. CARDIOVASCULAR: Murmur appreciated. RESPIRATORY: Clear to auscultation. Breath sounds diminished on the left side. Chest tube insertion sites with no evidence of infection. [address] on Rt side today. 2 CTs out (1 removed and 1 pulled out) GASTROINTESTINAL: Abdomen soft, non-tender, nondistended. MUSCULOSKELETAL: Extremities without clubbing, cyanosis, or edema. No joint tenderness, effusion, or edema noted. No calf tenderness. Negative Homans sign bilaterally. NEUROLOGICAL: Awake and alert. Nonfocal. Follows commands moves all 4 extremities. Psych cooperative IV line sites with no evidence of infection. Assessment & Plan Remarks Sepsis(fever, tachycardia, source pneumonia) MRSA pneumonia Shayla albicans UTI, likely catheter associated. Status post cardiac catheterization with ruptured pulmonary artery as complication Chest tubes in place for pneumothorax Atrial fibrillation Pacemaker in place Recommendations Continue cefepime IV(attempted to deescalate but clinically did not do well over weekend, increase in WBC and Temps) Continue Zyvox IV may be transitioned to oral if concern for fluid excess and if able to tolerate oral medications. Continue fluconazole IV repeat UA from hillary cordero was positive. Will treat for few days. Follow cultures Follow clinically Discussed with RN as well as patient in the room. Dolores Segura MD Jun 16, 2017 11:10
[2017-06-16] MEDS ORDERED: ACETAMINOPHEN 650 MG/20.3 ML UDC OG-TUBE ONE (17:45)
[2017-06-16] MEDS: RESP: BUDESONIDE 0.5 MG/2 ML NEB NEB SCH (21:50)
[2017-06-16] MEDS: FLUCONAZOLE 200 MG PREMIX BAG 100 ML IV SCH (22:24)
[2017-06-17] VITALS (12 sets, daily range): BP systolic 102–157; BP diastolic 51–68; PULSE 69–84; RESP 16–18; TEMP 97.4–98.6; O2SAT 98–99
[2017-06-17] MEDS: DILTIAZEM HCL 60 MG TAB PO SCH ×4 (00:28→18:31)
--- NOTE | 2017-06-17 05:31 | RADRPT ---
EXAM DATE/TIME: 06/17/2017 04:28 [facility] COMPARISON: CHEST SINGLE AP, June 16, 2017, 6:09. INDICATIONS : Short of breath. MEDICAL HISTORY : Congestive heart failure. Hypertension Carcinoma, colon. Aortic stenosis. SURGICAL HISTORY : Pacemaker. Tonsillectomy. Cardiac cath. ENCOUNTER: Subsequent ACUITY: 2 weeks PAIN SCORE: 0/10 LOCATION: Bilateral chest FINDINGS: Endotracheal tube tip is 2.5 cm above the mikel. Nasogastric tube descends to the stomach. Right kahlil tral line descends to the SVC. Pacemaker device is noted with control pack over the left chest. There has been slight interval improvement in aeration with improved lung volumes and decrease in confluen ce of basilar infiltrates CONCLUSION: Slight interval improvement in aeration Alvin Walls MD on June 17, 2017 at 5:28 Board Certified Radiologist. This report was verified electronically.
[2017-06-17 05:35] LABS: AUTOMATED NEUTROPHIL # 13.2 TH/MM3 (1.8-7.7); BASOPHIL # 0.1 TH/MM3 (0-0.2); BASOPHIL % 0.4 % (0.0-2.0); EOSINOPHIL # 0.1 TH/MM3 (0-0.4); EOSINOPHIL % 0.8 % (0.0-4.0); HEMATOCRIT 27.3 % (35.0-46.0); HEMO FLAGS DIFF FINAL; LYMPH % 5.6 % (9.0-44.0); LYMPHOCYTE # 0.8 TH/MM3 (1.0-4.8); MEAN CELL VOLUME 86.7 FL (80.0-100.0); MEAN CORPUSCULAR HEMOGLOBIN 29.2 PG (27.0-34.0); MEAN CORPUSCULAR HGB CONC 33.7 % (32.0-36.0); MONO % 4.4 % (0.0-8.0); NEUT % 88.8 % (16.0-70.0); PLATELET COUNT 344 TH/MM3 (150-450); RED BLOOD COUNT 3.15 MIL/MM3 (4.00-5.30); RED CELL DISTRIBUTION WIDTH 15.7 % (11.6-17.2); WHITE BLOOD COUNT 14.9 TH/MM3 (4.0-11.0)
[2017-06-17] MEDS: METOPROLOL TARTRATE 25 MG TAB PO SCH ×3 (05:39→22:35)
[2017-06-17] MEDS: FREE WATER OG-TUBE SCH ×4 (05:39→18:00)
[2017-06-17] MEDS: LEVOTHYROXINE SODIUM 50 MCG TAB PO SCH (05:39)
[2017-06-17 05:49] LABS: APTT (PATIENT) 61.2 SEC (24.3-30.1)
[2017-06-17 06:07] LABS: BICARBONATE 28.5 MEQ/L (21.0-32.0); CALCIUM-PROTEIN CORRECTED 8.5 MG/DL (8.5-10.1); MAGNESIUM 2.2 MG/DL (1.5-2.5); POTASSIUM 4.1 MEQ/L (3.5-5.1); TOTAL BILIRUBIN ADULT 0.7 MG/DL (0.2-1.0)
[2017-06-17] MEDS: LINEZOLID 600 MG PREMIX 300 ML IV SCH ×2 (06:32→18:31)
--- NOTE | 2017-06-17 07:48 | HHI.CCPN ---
Subjective Remarks/Hospital Course I was emergently called to microbiology lab assistant by Dr. Corrales. Ms. Mahoney who is 89 yo female with history of severe aortic stenosis was undergoing left and right heart catheter for TAVR evaluation. With right heart catheterization patient developed acute massive hemoptysis with shock secondary to acute rupture of pulmonary artery. Patient was intubated by Dr. Potter and ETT was advance to Right lung for selective right lung ventilation due to massive hemorrhage from Left lung. On my arrival to microbiology lab assistant, patient was rapidly dropping blood pressure. Dopamine was already started. I ordered Shantanu-Synephrine, at 300 mcg/ m in an attempt to increase MAP and also increase the pulmonary vasoconstriction. Levophed was also added to maintain blood pressure and rapidly titrated up. Emergency release blood initially 3 units was ordered stat along with 2 units of FFP, 1 unit of platelet. I also emergently contacted Dr. Vásquez was in the office. (Dr. Bedoya the on-call CT surgeon was operating). While on Levophed Shantanu-Synephrine and dopamine, patient developed coarse V. fib/V. tach, received brief CPR, and was DC cardioverted 1 with return of spontaneous circulation and sinus rhythm. I discussed with Dr. Corrales and anesthesiologist, I also contacted Dr. Josue from invasive radiology.Dr. Josue immediately arrived to the microbiology lab assistant. Dr. Abdelrahman francis performed PARVIN which showed vigorous LV contraction but cavity was empty. Received Continuous massive fluid resuscitation with multiple crystalloid boluses, bicarbonate and calcium. Blood arrived and initially 3 units of PRBC, 2 units of 1 unit of platelets was given with calcium total 3 g given after blood transfusion. Because of persistent hypotension, additional 2 units of PRBC was given. While I resuscitated the patient, Dr. Corrales and Dr. Jennings performed right heart cath, identified bleeding of a small branch in the left pulmonary artery. They put put in 6 coils in the lower left lower pulmonary artery followed with Gelfoam closing the perforation. 06/04: Emergency chest 2 yesterday for right pneumothorax with hypotension and hypoxia. Remains intubated sedated and on Levophed. FiO2 remains at 100%, Sat improving to 94-95 %. UO adequate overnight. 2-D echo on my review normal LV and RV function, no PFO on bubble study 06/05: Patient is in atrial fibrillation currently on Cardene infusion for blood pressure control. Chest x-ray shows percutaneous emphysema and small apical pneumothorax. Remains on 80% FiO2. I discussed with interventional radiology. We will attempt CT-guided repositioning of the pigtail catheter and possibly upgrading to a larger tube. Urine output adequate 750 mL in 24 hours 06/06: Currently remains in A. fib with rate controlled, hypertensive on Cardizem drip. Oxygen saturation has improved FiO2 now to 40% with saturation 97%. Urine output excellent with Lasix 4.5 L in 24 hours. Chest x-ray today shows 2.5 cm bilateral apical pneumothorax, also left side has 1.2 cm lateral pneumothorax 06/07: Intubated, on low dose propofol for ventilator synchrony. FiO2 40% oxygen saturation 99%. Chest x-ray and labs pending urine output 2.7 L. 3 chest tubes with no air leak. If neuro exam not improving off sedation will check CT of the head. Currently on propofol will change control coordinator to Precedex to initiate weaning trials. On weaning doses of inhaled Flolan currently on 30, 000 ng 06/08: Remains intubated, mild sedation with Precedex. Overnight FiO2 increased to 65% for hypoxia. CXR left more than right consolidation of lower lobes. Sputum positive for MRSA on vancomycin. Bilateral lower extremity US studies yesterday showed DVT, initiated on IV heparin. Currently therapeutic on heparin. No evidence of pulmonary hemorrhage. Neuro exam is improving weekly follows commands all 4 extremities 06/09: remains intubated. failed CPAP yesterday. on Cleviprex and precedex. fio2 back to 40%. CXR improved aeration with the exception of known LLL. FC x 4. 06/10: failed SBT again for apnea. but much more awake. denies pain. ROS negative. off cleviprex. new air leak in chest tube. will get chest xray to re- eval. 06/11: Warm, well perfused. Alert, cooperative. Communicates with head nod, hand gestures. Comfortable respiratory pattern and acceptable excursions.Air leaks will seal when off positive pressure ventilation. FiO2 to 0.80 last night briefly; now 0.40. I'll come back later today and see if I can get her extubated. 06/12: Required re-intubation for hypoxemic respiratory failure last evening. She is now warm with well perfused fingers and toes. Low dose levophed not hampering peripheral perfusion. Mild prerenal azotemia. CXR with diffuse infiltrates as before. WBC 32,00, afebrile. Must assume colonized lungs at least. Antibiotic coverage is appropriate. Reculture sputum, urine. Progress to weaning trials daily.Hemodynamics appear excellent, rate a minor problem pretty well controlled. Continue Vanc. Stop pip/roxi, start cefepime. Narrow after cultures. Change CVLs, draw blood cultures. 06/13: Persistent leukocytosis, Tmax 100.2. O2 diffusion acceptable on positive pressure ventilation. Sputum culture pending. Remains warm and well perfused. Continue daily spontaneous breathing trials. 06/14: Bronch and BAL this morning by Dr. Muñoz. Gas exchange remains acceptable. Continue SBTs. 06/15: Looks great on SBTs/CPAP. She would benefit from a temporary tracheostomy. But she will eventually be off and extubated for good. C&S pending from BAL. Continue present abx regimen - discussed with Dr. Segura. 06/16: Awake alert following commands on vent. Currently on Precedex 0.5 g per KG per hour. Still has large amount of ETT secretions, but improving. R pigtail dislodged with turning, no pneumo on repeat CXR 06/17: Awake alert on low dose Precedex. Tolerated CPAP yesterday. Not extubated yesterday due copious bloody secretions. The chest x-ray shows some interval improvement and secretions slightly improved. Will proceed with SBT and possible extubation Objective Vital Signs Date Time Temp Pulse Resp B/P (MAP) Pulse Ox O2 Delivery O2 Flow Rate FiO2 06/17/17 07:00 98.5 69 16 107/51 (69) 99 06/17/17 04:15 40 06/16/17 20:00 Mechanical Ventilator Intake and Output 06/17/17 06/17/17 06/18/17 08:00 16:00 00:00 Intake Total 1172 ml Output Total 400 ml Balance 772 ml Result Diagram: 06/17/17 0510 06/17/17 0510 Other Results Microbiology Date/Time Source Procedure Growth Status 06/14/17 12:00 Bronchial Washings Left Lower Lobe Gram Stain - Final Complete 06/14/17 12:00 Bronchial Culture - Final S. Aureus Mrsa Complete 06/14/17 12:00 Bronchial Washings Right Lower Lobe Gram Stain - Final Complete 06/14/17 12:00 Bronchial Culture - Final S. Aureus Mrsa Complete Laboratory Tests Test 06/16/17 08:57 Blood Gas Puncture Site RT RADIAL Blood Gas Patient Temperature 98.6 Blood Gas HCO3 27 mmol/L (22-26) Blood Gas Base Excess 3.6 mmol/L (-2-2) Blood Gas Oxygen Saturation 97 % (90-100) Arterial Blood pH 7.48 (7.380-7.420) Arterial Blood Partial Pressure CO2 37 mmHg (38-42) Arterial Blood Partial Pressure O2 137 mmHg (61-120) Arterial Blood Oxygen Content 17.2 Vol % (12.0-20.0) Arterial Blood Carboxyhemoglobin 1.3 % (0-4) Arterial Blood Methemoglobin 1.2 % (0-2) Blood Gas Hemoglobin 12.5 G/DL (12.0-16.0) Oxygen Delivery Device VENTILATOR Blood Gas Ventilator Setting CPAPPEEP5/PS5 Blood Gas Inspired Oxygen 40 % Objective Remarks GENERAL: Intubated. Alert. Moving extremities with purposefully. SKIN: Skin /dry. ENT: Orotracheally intubated. NECK: Trachea midline. Supple. CARDIOVASCULAR: Remains in atrial fibrillation, rate well controlled in 80 - 90. Systolic murmur over apex and LSB. RESPIRATORY: Continued sonorous coarse sounds. Good air entry at bases. Right chest tube with 182 ml out put in 24 hours GASTROINTESTINAL: Abdomen Soft, no guarding. BS active. MUSCULOSKELETAL: New right IJ CVL. Limbs well perfused. 2+ Pedal edema NEUROLOGICAL: Patient is intubated. Follows commands. Awake, following commands x 4. RASS -0. A/P Assessment and Plan Assessment: 89yF with severe aortic stenosis, course complicated by Pulmonary Artery rupture during right heart catheterization, traumatic pneumothorax secondary to barotrauma, acute hypoxic respiratory failure, MRSA healthcare associated pneumonia, volume overload. Slowly improving but remains critically ill, some organ systems improved. failed extubation few days ago. daily SBTs and OOB to stretcher chair daily. NEURO: Encephalopathy, metabolic - resolved. - Precedex to facilitate neuro exam - Daily sedation vacation - Continue to hold home sertraline - CT of the head and C-spine negative for acute injury RESP: Left lower pulmonary artery rupture with massive hemorrhage Massive hemoptysis Acute hypoxemic respiratory failure MRSA pneumonia Large Left hemothorax s/p IR chest tube placement, residual L pneumo after evacuation Bilateral apical pneumothorax Bilateral lower extremity DVT - s/p coil and gelfoam closure of Left lower pulmonary artery (peripheral small branch) by Rhoda Corrales and Michaela (see resuscitation note on 06/03/17) - PC/AC mechanical ventilation PEEP of 8, Fio2 40%. Chest x-ray shows left lower lobe pneumonia - Chest x-ray confirms pneumonia vs lung infarct. Sputum with MRSA. on Zyvox - s/p chest tube x2 for right pneumothorax on 06/03. New apical chest tube placed 06/06/17 - IR, placed 24 F Left chest tube 06/05 with drainage of 2 L hemothorax, residual pneumothorax present, now resolved - CXR 06/07, resolution of right improving subcutaneous emphysema. Small residual left apical pneumo - s/p Bronchoscopy with removal of blood predominantly from L lung, s/p repeat bronch 06/06, 06/15 - DuoNeb q 6hours and PRN. Flolan weaned off. INH Budesonide, Singel dose of decadron 6 mg IV x1 - Venous duplex -bilateral lower extremity DVT. IV heparin started 06/07/17 therapeutic - continue daily SBTs. not extubated due to copious secretions - Required re-intubation 06/02 for hypoxemia. Proceed with attempt at extubation today or tomorrow, if fails will proceed with tracheostomy - D/W with Dr. Langford and Dr. Corrales CV/Heme: Hemorrhagic shock-resolved Bilateral lower extremity DVT Anemia requiring transfusion Severe Aortic Stenosis Atrial fibrillation with RVR Possible history of ITP - IV heparin started 06/07/17 for bilateral lower extremity DVT and atrial fibrillation, watch closely for bloody chest tube output and hemoptysis - Continue home Cardizem CD 120 mg daily. - Cleviprex, when necessary hydralazine (well beta blocked) to keep systolic blood pressure less than 150 - Continue IV Lasix, 20 mg daily, additional 20 mg today. Home metoprolol at 25 mg by mouth every 8 hours. Home dose of digoxin - On Multaq at home. Defer to Dr. Corrales - Received 6 units of emergency release blood, 2 units of FFP and one of platelets 06/03/17. Multiple crystalloid boluses were given, PARVIN normal LV contractility, volume depletion - 2D Echo 06/04 RV LV function look normal, no PFO - Promacta for ITP - hydralazine 50mg po q8hr and increased losartan to 100mg daily (06/09). now off cleviprex. GI: - OGT tube, IV Protonix. Tube feeds with Jevity-hold for SBT. Having regular BMs : - Monitor renal function closely. Payne catheter. Urine output adequate - IV Lasix 20 daily with 20 mg IV additional dose ID: MRSA pneumonia - Continue cefepime and Zyvox. WBC stable - BAL culture MRSA. - Reculture sputum, blood, urine ENDO: Hypokalemia Hypomagnesemia - Replace electrolytes per protocol PROPH: - DCd SCDs due to DVT. IV Protonix. IV heparin started 06/07 LINES: - Left femoral cordis and central line D/c'd 06/04. New LIJ central line placed 06/04 -> out 06/12 New Left IJ CVL 06/12 Overall impression: Required re-intubation for diffusion problem. Consistent with interstitial edema and loss of FRC. Continue daily SBTs, maintain diaphragm strength. ID following.. BAL She still coughs up residual blood. She will benefit from trach for a couple of weeks, but will attempt to extubate once more prior to trach either today or tomorrow Tanika Esquivel MD Jun 17, 2017 07:48
[2017-06-17] MEDS: INSULIN ASPART SUPPLEMENTAL SCALE SQ SCH ×2 (08:00→20:00)
[2017-06-17] MEDS ORDERED: DEXAMETHASONE SOD PHOS 4 MG/ML VIAL IV PUSH ONE (08:00)
[2017-06-17] MEDS: CHLORHEXIDINE 0.12% (ORAL KIT) 15 ML CUP MT SCH ×2 (08:00→19:58)
[2017-06-17] MEDS: RESP: ALBUTEROL 2.5 MG/IPRATROPIUM 0.5 MG NEB (SCH) NEB ×3 (08:26→21:32)
[2017-06-17] MEDS: RESP: BUDESONIDE 0.5 MG/2 ML NEB NEB SCH ×2 (08:26→21:33)
[2017-06-17] MEDS: ELTROMBOPAG 50 MG TAB PO SCH (08:51)
[2017-06-17] MEDS: NYSTATIN SUSP 500,000 U/5 ML CUP SWISH-SWAL SCH ×4 (08:51→22:35)
[2017-06-17] MEDS: DIGOXIN 0.125 MG TAB PO SCH (08:51)
[2017-06-17] MEDS: PANTOPRAZOLE SODIUM 40 MG VIAL IV PUSH SCH ×2 (08:51→22:34)
--- NOTE | 2017-06-17 08:51 | PD.CARD.PN ---
Subjective Subjective Remarks Intubated Opening eyes and moving extremities, following commands On Heparin gtt Afebrile, WBC trending down Large amount of ETT secretions, but improving. Objective Medications Current Medications Medications (Trade) Dose Ordered Sig/Padmini Route Start Time Stop Time Status Last Admin (Peridex 0.12% Liq) 15 ml BID@08,20 MT 06/03/17 20:00 06/16/17 20:35 (Duoneb Neb) 1 ampule Q2HR NEB PRN NEB 06/03/17 19:00 06/15/17 19:56 (Protonix Inj) 40 mg Q12H IV PUSH 06/03/17 20:00 06/16/17 20:35 Potassium Chloride 100 ml @ 50 mls/hr Q2H PRN IV 06/03/17 19:15 06/09/17 08:04 Potassium Chloride 100 ml @ 50 mls/hr Q2H PRN IV 06/03/17 19:15 (K-Lyte Cl Eff) 50 meq UNSCH PRN PO 06/03/17 19:15 Potassium Chloride 100 ml @ 25 mls/hr UNSCH PRN IV 06/03/17 19:15 06/06/17 18:46 Potassium Chloride 100 ml @ 50 mls/hr Q2H PRN IV 06/03/17 19:15 06/13/17 08:23 Magnesium Sulfate 4 gm/Sodium Chloride 100 ml @ 50 mls/hr UNSCH PRN IV 06/03/17 19:15 (Mag-Ox) 800 mg UNSCH PRN PO 06/03/17 19:15 Magnesium Sulfate 2 gm/Sodium Chloride 100 ml @ 50 mls/hr UNSCH PRN IV 06/03/17 19:15 06/04/17 16:45 (K-Phos) 2,000 mg Q4H PRN PO 06/03/17 19:15 Sodium Phosphate 30 mmol/Sodium Chloride 250 ml @ 42 mls/hr UNSCH PRN IV 06/03/17 19:15 (K-Phos) 2,000 mg UNSCH PRN PO/TUBE 06/03/17 19:15 Potassium Phosphate 30 mmol/ Sodium Chloride 260 ml @ 42 mls/hr UNSCH PRN IV 06/03/17 19:15 06/13/17 12:03 (D50w (Vial) Inj) 50 ml UNSCH PRN IV PUSH 06/04/17 12:15 (Glucagon Inj) 1 mg UNSCH PRN OTHER 06/04/17 12:15 (Lopressor Inj) 1.25 mg Q6H PRN IV PUSH 06/04/17 19:15 06/06/17 20:29 (Free Water) 250 ml Q6HR OG-TUBE 06/05/17 14:00 06/17/17 05:39 (Colace Liq) 100 mg Q12HR PO 06/05/17 14:00 06/16/17 20:38 (K-Lyte Cl Eff) 25 meq Q12HR PO 06/05/17 14:00 06/16/17 20:38 (Lanoxin) 0.125 mg DAILY PO 06/06/17 09:00 06/16/17 08:35 (Lasix Inj) 20 mg DAILY IV PUSH 06/07/17 09:00 06/16/17 08:35 (Lopressor) 25 mg Q8HR PO 06/07/17 14:00 06/17/17 05:39 Clevidipine 50 ml @ 2 mls/hr TITRATE PRN IV 06/07/17 07:00 06/09/17 08:02 (Cozaar) 50 mg DAILY PO 06/07/17 09:00 06/16/17 08:35 (Apresoline Inj) 20 mg Q4H PRN IV PUSH 06/07/17 08:00 06/14/17 01:21 (Synthroid) 50 mcg DAILY@0600 PO 06/07/17 08:00 06/17/17 05:39 (Promacta) 25 mg DAILY@1000 PO 06/08/17 10:00 06/16/17 09:04 (Heparin Inj) 5,000 units UNSCH PRN IV PUSH 06/07/17 22:00 (Heparin Inj) 2,500 units UNSCH PRN IV PUSH 06/07/17 22:00 (Pill Splitter) 1 ea UNSCH PRN OTHER 06/07/17 22:15 (NovoLOG SUPPLEMENTAL SCALE) 1 BID@0800,2000 SQ 06/08/17 20:00 06/15/17 08:43 (Mycostatin Liq) 5 ml QID SWISH-SWAL 06/12/17 13:00 06/16/17 20:38 Dexmedetomidine HCl 200 mcg/ Sodium Chloride 50 ml @ 3.1 mls/hr TITRATE PRN IV 06/13/17 06:15 06/16/17 22:26 (Cardizem) 60 mg Q6HR PO 06/13/17 12:00 06/17/17 05:39 Linezolid 300 ml @ 300 mls/hr Q12H IV 06/13/17 19:00 06/17/17 06:32 Fluconazole/ Sodium Chloride 100 ml @ 100 mls/hr Q24H IV 06/13/17 21:00 06/16/17 22:24 Cefepime HCl 2000 mg/Sodium Chloride 100 ml @ 200 mls/hr Q12H IV 06/14/17 21:00 06/16/17 20:36 Heparin Sodium/ Dextrose 250 ml @ 11 mls/hr TITRATE IV 06/16/17 07:30 (Pulmicort Respule Neb) 0.5 mg Q12HR NEB NEB 06/16/17 11:15 06/17/17 08:26 (Duoneb Neb) 1 ampule Q6HR NEB NEB 06/17/17 10:00 06/17/17 08:26 Vital Signs / I&O Vital Signs Date Time Temp Pulse Resp B/P (MAP) Pulse Ox O2 Delivery O2 Flow Rate FiO2 06/17/17 08:30 99 40 06/17/17 08:27 99 40 06/17/17 07:20 40 06/17/17 07:00 98.5 69 16 107/51 (69) 99 06/17/17 07:00 69 06/17/17 04:15 99 40 06/17/17 04:00 40 06/17/17 04:00 69 06/17/17 04:00 97.4 69 16 122/59 (80) 99 06/17/17 01:10 99 40 06/17/17 00:00 98.6 69 16 102/52 (69) 99 06/17/17 00:00 69 06/17/17 00:00 40 06/16/17 20:50 99 40 06/16/17 20:00 70 06/16/17 20:00 98.2 70 16 99 06/16/17 20:00 99 Mechanical Ventilator 40 06/16/17 20:00 40 06/16/17 16:40 99 40 06/16/17 15:00 69 06/16/17 15:00 98 Mechanical Ventilator 40 06/16/17 15:00 98.0 69 26 132/68 (89) 98 06/16/17 14:51 99 40 06/16/17 13:54 98 40 06/16/17 12:27 98.2 06/16/17 12:00 98.2 06/16/17 11:00 98 Mechanical Ventilator 40 06/16/17 11:00 69 06/16/17 11:00 98.2 69 20 125/57 (79) 98 06/16/17 10:59 99 40 06/16/17 09:20 98 40 I/O 06/16/17 06/16/17 06/16/17 06/17/17 06/17/17 06/17/17 06:59 14:59 22:59 06:59 14:59 22:59 Intake Total 978 ml 100 ml 1805 ml 972 ml 300 ml Output Total 470 ml 1370 ml 400 ml Balance 508 ml 100 ml 435 ml 572 ml 300 ml IV Total 100 ml 980 ml 100 ml 300 ml Tube Feeding 478 ml 325 ml 372 ml Other 500 ml 500 ml 500 ml Output Urine Total 450 ml 1340 ml 400 ml Chest Tube Drainage Total 20 ml 30 ml 0 ml # Bowel Movements 2 1 1 Physical Exam GENERAL: Intubated, pupils reactive, Alert, awake, oriented SKIN: Warm and dry. HEAD: Normocephalic. EYES: No scleral icterus. No injection or drainage. NECK: Supple, trachea midline. No JVD or lymphadenopathy. CARDIOVASCULAR: Irr Irr 2/6SEM no gallops, or rubs. RESPIRATORY: Vented. GASTROINTESTINAL: Abdomen soft, non-tender, nondistended. EXTREMITIES: No cyanosis, or +edema. Laboratory Laboratory Tests Test 06/16/17 08:57 06/17/17 05:10 Blood Gas Puncture Site RT RADIAL Blood Gas Patient Temperature 98.6 Blood Gas HCO3 27 mmol/L Blood Gas Base Excess 3.6 mmol/L Blood Gas Oxygen Saturation 97 % Arterial Blood pH 7.48 Arterial Blood Partial Pressure CO2 37 mmHg Arterial Blood Partial Pressure O2 137 mmHg Arterial Blood Oxygen Content 17.2 Vol % Arterial Blood Carboxyhemoglobin 1.3 % Arterial Blood Methemoglobin 1.2 % Blood Gas Hemoglobin 12.5 G/DL Oxygen Delivery Device VENTILATOR Blood Gas Ventilator Setting CPAPPEEP5/PS5 Blood Gas Inspired Oxygen 40 % White Blood Count 14.9 TH/MM3 Red Blood Count 3.15 MIL/MM3 Hemoglobin 9.2 GM/DL Hematocrit 27.3 % Mean Corpuscular Volume 86.7 FL Mean Corpuscular Hemoglobin 29.2 PG Mean Corpuscular Hemoglobin Concent 33.7 % Red Cell Distribution Width 15.7 % Platelet Count 344 TH/MM3 Mean Platelet Volume 7.9 FL Neutrophils (%) (Auto) 88.8 % Lymphocytes (%) (Auto) 5.6 % Monocytes (%) (Auto) 4.4 % Eosinophils (%) (Auto) 0.8 % Basophils (%) (Auto) 0.4 % Neutrophils # (Auto) 13.2 TH/MM3 Lymphocytes # (Auto) 0.8 TH/MM3 Monocytes # (Auto) 0.7 TH/MM3 Eosinophils # (Auto) 0.1 TH/MM3 Basophils # (Auto) 0.1 TH/MM3 CBC Comment DIFF FINAL Differential Comment Activated Partial Thromboplast Time 61.2 SEC Blood Urea Nitrogen 31 MG/DL Creatinine 0.66 MG/DL Random Glucose 127 MG/DL Total Protein 5.1 GM/DL Albumin 1.5 GM/DL Calcium Level 7.4 MG/DL Phosphorus Level 3.1 MG/DL Magnesium Level 2.2 MG/DL Alkaline Phosphatase 154 U/L Aspartate Amino Transf (AST/SGOT) 35 U/L Alanine Aminotransferase (ALT/SGPT) 41 U/L Total Bilirubin 0.7 MG/DL Sodium Level 134 MEQ/L Potassium Level 4.1 MEQ/L Chloride Level 98 MEQ/L Carbon Dioxide Level 28.5 MEQ/L Anion Gap 8 MEQ/L Estimat Glomerular Filtration Rate 84 ML/MIN Protein Corrected Calcium 8.5 MG/DL Imaging Last 24 hours Impressions Chest X-Ray 06/17/17 0600 Signed Impressions: Service Date/Time: Saturday, June 17, 2017 04:28 - CONCLUSION: Slight interval improvement in aeration Alvin Walls MD Assessment and Plan Problem List: (1) Shock, postoperative ICD Codes: T81.10XA - Postprocedural shock unspecified, initial encounter Status: Resolved Plan: Moving extremities, pupils reactive V paced Afebrile, hemodynamically stable Recommendations: - Avoid electrolytes imbalance - Cont rate control for afib - Cont Heparin drip (H&H stable) - Appreciate ID recs. Started on IV Linezolid - Out o bed to chair - PT/OT - Ventilator management per Membership Sales Manager Case discuss with Membership Sales Manager and Family (2) Pulmonary arterial thrombosis ICD Codes: I26.99 - Other pulmonary embolism without acute cor pulmonale Status: Acute (3) CAD (coronary artery disease) ICD Codes: I25.10 - Atherosclerotic heart disease of [place] coronary artery without angina pectoris (4) Aortic stenosis ICD Codes: I35.0 - Nonrheumatic aortic (valve) stenosis Brad Page MD Jun 17, 2017 08:51
[2017-06-17] MEDS: DOCUSATE SODIUM 100 MG/10 ML UDC PO SCH ×2 (08:52→21:00)
[2017-06-17] MEDS: FUROSEMIDE 20 MG/2 ML VIAL IV PUSH SCH (08:52)
[2017-06-17] MEDS: LOSARTAN 50 MG TAB PO SCH (08:52)
[2017-06-17] MEDS: POTASSIUM CHLORIDE 25 MEQ EFFERVESCENT TAB PO SCH ×2 (09:00→22:35)
[2017-06-17] MEDS: CEFEPIME INJ 2,000 MG in SODIUM CHLORIDE 0.9% INJ 100 ML IV SCH ×2 (09:02→22:35)
[2017-06-17] MEDS: HEPARIN 25,000 UNITS-D5W 250 ML - PREMIX IV SCH (10:18)
--- NOTE | 2017-06-17 13:34 | HHI.IDPN ---
Subjective Subjective Remarks Ms. Mahoney who is 89 yo female with history of severe aortic stenosis who was undergoing left and right heart catheter for TAVR evaluation. With right heart catheterization patient developed acute massive hemoptysis with shock secondary to acute rupture of pulmonary artery. Patient was intubated by Dr. Potter and ETT was advance to Right lung for selective right lung ventilation due to massive hemorrhage from Left lung. While on Levophed Shantanu-Synephrine and dopamine , patient developed coarse V. fib/V. tach, received brief CPR, and was DC cardioverted 1 with return of spontaneous circulation and sinus rhythm. A PARVIN was performed which showed vigorous LV contraction but cavity was empty. Patient received continuous massive fluid resuscitation with multiple crystalloid boluses, bicarbonate and calcium. Patient needed resuscitation and blood products were instilled. Dr. Jennings performed right heart cath, identified bleeding of a small branch in the left pulmonary artery. They put put in 6 coils in the lower left lower pulmonary artery followed with Gelfoam closing the perforation. Other pertinent events in ICU stay: 06/04: Emergency chest 2 yesterday for right pneumothorax with hypotension and hypoxia. 06/05: Patient was in Atrial fibrillation currently on Cardene infusion for blood pressure control. Chest x-ray shows percutaneous emphysema and small apical pneumothorax. 06/08: Overnight FiO2 increased to 65% for hypoxia. CXR left more than right consolidation of lower lobes. Sputum positive for MRSA on vancomycin. Bilateral lower extremity US studies showed DVT, initiated on IV heparin. 06/11: Extubated. Required re-intubation for hypoxemic respiratory failure on . 06/13: Persistent leukocytosis, Tmax 100.2. At the time of my evaluation, pt is in the CCU on ventilator CPAP trials being attempted. UO good. Has CTs in place. Not on pressors. Opens eyes follows commands, writes on a note pad. Due to new fever and WBC elevation ID was consulted. Avilez cultures obtained earlier. Overnight events reviewed. No fevers No rash No diarrhea Extubated and doing well. Needs freq suctioning of oral secretions. UO good. Right side CT in place. Antibiotics I attest I reviewed, obtained or updated the patient's home medications and current medications for name, dose, frequency, route of administration. Reported Meds & Active Scripts Active Reported Centrum (Multiple Vitamins W/ Minerals) 1 Chew 1 Tab CHEW DAILY Pantoprazole (Pantoprazole Sodium) 40 Mg Tab 40 Mg PO DAILY Eq Mucus ER (Guaifenesin) 600 Mg Tab 600 Mg PO DAILY Warfarin 4 Mg Tab 4 Mg PO DAILY Sertraline (Sertraline HCl) 25 Mg Tab 25 Mg PO DAILY Promacta (Eltrombopag) 75 Mg Tab 50 Mg PO DAILY Potassium Chloride ER (Potassium Chloride) 10 Meq Cap 10 Meq PO DAILY MDD 20 Take 2 capsules Multaq (Dronedarone) 400 Mg Tab 400 Mg PO BID Metoprolol Tartrate 50 Mg Tab 50 Mg PO DAILY Losartan (Losartan Potassium) 50 Mg Tab 50 Mg PO DAILY Lipitor (Atorvastatin Calcium) 10 Mg Tab 10 Mg PO HS Levothyroxine (Levothyroxine Sodium) 50 Mcg Tab 50 Mcg PO DAILY Furosemide 20 Mg Tab 20 Mg PO DAILY Digox (Digoxin) 0.125 Mg Tab 0.125 Mg PO DAILY Folic Acid 0.4 Mg Tab 1 Mg PO DAILY Cardizem CD 24 HR (Diltiazem CD 24 HR) 120 Mg Caper 120 Mg PO DAILY Current Medications Medications (Trade) Dose Ordered Sig/Padmini Route Start Time Stop Time Status Last Admin (Peridex 0.12% Liq) 15 ml BID@08,20 MT 06/03/17 20:00 06/16/17 08:13 (Duoneb Neb) 1 ampule Q2HR NEB PRN NEB 06/03/17 19:00 06/15/17 19:56 (Protonix Inj) 40 mg Q12H IV PUSH 06/03/17 20:00 06/16/17 08:34 Potassium Chloride 100 ml @ 50 mls/hr Q2H PRN IV 06/03/17 19:15 06/09/17 08:04 Potassium Chloride 100 ml @ 50 mls/hr Q2H PRN IV 06/03/17 19:15 (K-Lyte Cl Eff) 50 meq UNSCH PRN PO 06/03/17 19:15 Potassium Chloride 100 ml @ 25 mls/hr UNSCH PRN IV 06/03/17 19:15 06/06/17 18:46 Potassium Chloride 100 ml @ 50 mls/hr Q2H PRN IV 06/03/17 19:15 06/13/17 08:23 Magnesium Sulfate 4 gm/Sodium Chloride 100 ml @ 50 mls/hr UNSCH PRN IV 06/03/17 19:15 (Mag-Ox) 800 mg UNSCH PRN PO 06/03/17 19:15 Magnesium Sulfate 2 gm/Sodium Chloride 100 ml @ 50 mls/hr UNSCH PRN IV 06/03/17 19:15 06/04/17 16:45 (K-Phos) 2,000 mg Q4H PRN PO 06/03/17 19:15 Sodium Phosphate 30 mmol/Sodium Chloride 250 ml @ 42 mls/hr UNSCH PRN IV 06/03/17 19:15 (K-Phos) 2,000 mg UNSCH PRN PO/TUBE 06/03/17 19:15 Potassium Phosphate 30 mmol/ Sodium Chloride 260 ml @ 42 mls/hr UNSCH PRN IV 06/03/17 19:15 06/13/17 12:03 (D50w (Vial) Inj) 50 ml UNSCH PRN IV PUSH 06/04/17 12:15 (Glucagon Inj) 1 mg UNSCH PRN OTHER 06/04/17 12:15 (Lopressor Inj) 1.25 mg Q6H PRN IV PUSH 06/04/17 19:15 06/06/17 20:29 (Free Water) 250 ml Q6HR OG-TUBE 06/05/17 14:00 06/16/17 06:00 (Colace Liq) 100 mg Q12HR PO 06/05/17 14:00 06/16/17 08:36 (K-Lyte Cl Eff) 25 meq Q12HR PO 06/05/17 14:00 06/16/17 08:35 (Lanoxin) 0.125 mg DAILY PO 06/06/17 09:00 06/16/17 08:35 (Lasix Inj) 20 mg DAILY IV PUSH 06/07/17 09:00 06/16/17 08:35 (Lopressor) 25 mg Q8HR PO 06/07/17 14:00 06/16/17 06:17 Clevidipine 50 ml @ 2 mls/hr TITRATE PRN IV 06/07/17 07:00 06/09/17 08:02 (Cozaar) 50 mg DAILY PO 06/07/17 09:00 06/16/17 08:35 (Apresoline Inj) 20 mg Q4H PRN IV PUSH 06/07/17 08:00 06/14/17 01:21 (Synthroid) 50 mcg DAILY@0600 PO 06/07/17 08:00 06/16/17 06:17 (Promacta) 25 mg DAILY@1000 PO 06/08/17 10:00 06/16/17 09:04 (Heparin Inj) 5,000 units UNSCH PRN IV PUSH 06/07/17 22:00 (Heparin Inj) 2,500 units UNSCH PRN IV PUSH 06/07/17 22:00 (Pill Splitter) 1 ea UNSCH PRN OTHER 06/07/17 22:15 (NovoLOG SUPPLEMENTAL SCALE) 1 BID@0800,2000 SQ 06/08/17 20:00 06/15/17 08:43 (Mycostatin Liq) 5 ml QID SWISH-SWAL 06/12/17 13:00 06/16/17 08:36 Dexmedetomidine HCl 200 mcg/ Sodium Chloride 50 ml @ 3.1 mls/hr TITRATE PRN IV 06/13/17 06:15 06/16/17 09:30 (Cardizem) 60 mg Q6HR PO 06/13/17 12:00 06/16/17 06:17 Linezolid 300 ml @ 300 mls/hr Q12H IV 06/13/17 19:00 06/16/17 06:18 Fluconazole/ Sodium Chloride 100 ml @ 100 mls/hr Q24H IV 06/13/17 21:00 06/15/17 21:12 Cefepime HCl 2000 mg/Sodium Chloride 100 ml @ 200 mls/hr Q12H IV 06/14/17 21:00 06/16/17 09:14 Heparin Sodium/ Dextrose 250 ml @ 11 mls/hr TITRATE IV 06/16/17 07:30 Lines Line sites with no e.o infection Past Medical History Hypertension Coronary artery disease Paroxysmal atrial fibrillation ITP Anemia Aortic stenosis severe Hypercholesterolemia Hypothyroidism Malignant colonic neoplasm Right hearing loss Pacemaker insertion January 29, 2013 Tonsillectomy Hernia Cataract PTCA Partial colectomy in 1999 Allergies: Coded Allergies: Sulfa (Sulfonamide Antibiotics) (Unverified Allergy, Severe, 06/03/17) promethazine (Unverified Allergy, Severe, 06/03/17) adhesive (Unverified Allergy, Unknown, 06/03/17) Objective . Vital Signs Date Time Temp Pulse Resp B/P (MAP) Pulse Ox O2 Delivery O2 Flow Rate FiO2 06/17/17 11:00 97.9 84 18 157/68 (97) 99 06/17/17 11:00 84 06/17/17 08:30 99 40 06/17/17 08:27 99 40 06/17/17 08:00 40 06/17/17 07:20 40 06/17/17 07:00 98.5 69 16 107/51 (69) 99 06/17/17 07:00 69 06/17/17 04:15 99 40 06/17/17 04:00 40 06/17/17 04:00 69 06/17/17 04:00 97.4 69 16 122/59 (80) 99 06/17/17 01:10 99 40 06/17/17 00:00 98.6 69 16 102/52 (69) 99 06/17/17 00:00 69 06/17/17 00:00 40 06/16/17 20:50 99 40 06/16/17 20:00 70 06/16/17 20:00 98.2 70 16 99 06/16/17 20:00 99 Mechanical Ventilator 40 06/16/17 20:00 40 06/16/17 16:40 99 40 06/16/17 15:00 69 06/16/17 15:00 98 Mechanical Ventilator 40 06/16/17 15:00 98.0 69 26 132/68 (89) 98 06/16/17 14:51 99 40 06/16/17 13:54 98 40 06/17/17 06/17/17 06/18/17 15:00 23:00 07:00 Intake Total 300 ml Balance 300 ml IV Total 300 ml . Laboratory Tests Test 06/16/17 04:00 06/17/17 05:10 White Blood Count 14.6 TH/MM3 14.9 TH/MM3 Red Blood Count 2.98 MIL/MM3 3.15 MIL/MM3 Hemoglobin 8.8 GM/DL 9.2 GM/DL Hematocrit 26.0 % 27.3 % Mean Corpuscular Volume 87.2 FL 86.7 FL Mean Corpuscular Hemoglobin 29.5 PG 29.2 PG Mean Corpuscular Hemoglobin Concent 33.9 % 33.7 % Red Cell Distribution Width 15.9 % 15.7 % Platelet Count 346 TH/MM3 344 TH/MM3 Mean Platelet Volume 8.2 FL 7.9 FL Neutrophils (%) (Auto) 88.3 % 88.8 % Lymphocytes (%) (Auto) 6.0 % 5.6 % Monocytes (%) (Auto) 5.1 % 4.4 % Eosinophils (%) (Auto) 0.2 % 0.8 % Basophils (%) (Auto) 0.4 % 0.4 % Neutrophils # (Auto) 12.9 TH/MM3 13.2 TH/MM3 Lymphocytes # (Auto) 0.9 TH/MM3 0.8 TH/MM3 Monocytes # (Auto) 0.7 TH/MM3 0.7 TH/MM3 Eosinophils # (Auto) 0.0 TH/MM3 0.1 TH/MM3 Basophils # (Auto) 0.1 TH/MM3 0.1 TH/MM3 CBC Comment DIFF FINAL DIFF FINAL Differential Comment Laboratory Tests Test 06/16/17 04:00 06/17/17 05:10 Blood Urea Nitrogen 33 MG/DL 31 MG/DL Creatinine 0.60 MG/DL 0.66 MG/DL Random Glucose 109 MG/DL 127 MG/DL Total Protein 4.8 GM/DL 5.1 GM/DL Calcium Level 7.4 MG/DL 7.4 MG/DL Sodium Level 134 MEQ/L 134 MEQ/L Potassium Level 4.2 MEQ/L 4.1 MEQ/L Chloride Level 101 MEQ/L 98 MEQ/L Carbon Dioxide Level 29.2 MEQ/L 28.5 MEQ/L Anion Gap 4 MEQ/L 8 MEQ/L Estimat Glomerular Filtration Rate 94 ML/MIN 84 ML/MIN Protein Corrected Calcium 8.7 MG/DL 8.5 MG/DL B-Type Natriuretic Peptide 369 PG/ML Albumin 1.5 GM/DL Phosphorus Level 3.1 MG/DL Magnesium Level 2.2 MG/DL Alkaline Phosphatase 154 U/L Aspartate Amino Transf (AST/SGOT) 35 U/L Alanine Aminotransferase (ALT/SGPT) 41 U/L Total Bilirubin 0.7 MG/DL Imaging Last Impressions Chest X-Ray 06/16/17 0400 Signed Impressions: Service Date/Time: Friday, June 16, 2017 04:10 - CONCLUSION: Worsening aeration in the left lung. Interval removal or dislodgment of right pigtail thoracostomy tube Alvin Walls MD Tunnelled Chest Tube Removal 06/13/17 0000 Signed Impressions: Service Date/Time: Tuesday, June 13, 2017 00:00 - CONCLUSION: Uncomplicated chest tube removal. Joselo Jennings MD Upper Extremity Ultrasound 06/07/17 Signed Impressions: Service Date/Time: Wednesday, June 07, 2017 18:21 - CONCLUSION: 1. Limited exam but no deep venous thrombosis is identified bilaterally. Jamie Corrales MD Lower Extremity Ultrasound 06/07/17 Signed Impressions: Service Date/Time: Wednesday, June 07, 2017 17:57 - CONCLUSION: 1. Positive bilateral lower extremity deep venous thrombosis, nonocclusive as above. Jamie Corrales MD Head CT 06/07/17 Signed Impressions: Service Date/Time: Wednesday, June 07, 2017 17:01 - CONCLUSION: 1. No acute intracranial abnormality. 2. Extensive subcutaneous air tracking up from the chest. Luc Cain Jr., MD Cervical Spine CT 06/07/17 Signed Impressions: Service Date/Time: Wednesday, June 07, 2017 17:01 - CONCLUSION: 1. Extensive subcutaneous emphysema. 2. Tiny left apical pneumothorax. 3. Diffuse mild degenerative changes without central canal stenosis. Multilevel neural foraminal narrowing. 4. Prevertebral soft tissues obscured by an endotracheal tube and nasogastric tube. Luc Cain Jr., MD Chest Tube Insertion 06/05/17 Signed Impressions: Service Date/Time: May 09:15 - CONCLUSION: Uncomplicated chest tube placement as above. Maxwell Aldana MD Chest CT 06/05/17 Signed Impressions: Service Date/Time: May 08:47 - CONCLUSION: 1. Moderate left-sided hemothorax with associated left lower lobe consolidation which may reflect a combination of compressive atelectasis, aspiration, and potentially lung infarction given recent pulmonary artery embolization. 2. Trace right apical pneumothorax with large bore chest tube in the major fissure and smallbore chest tube in the soft tissues. Significant subcutaneous emphysema extending to the cervicothoracic junction bilaterally. 3. Airspace consolidation in the right lower lobe posteriorly may reflect aspiration. Maxwell Aldana MD Embolization 06/03/17 Signed Impressions: Service Date/Time: Saturday, June 03, 2017 00:00 - CONCLUSION: Left pulmonary artery rupture with successful coil embolization of a lower lobe branch vessel as above. Joselo Jennings MD Abdomen X-Ray 06/03/17 0000 Signed Impressions: Service Date/Time: Saturday, June 03, 2017 18:04 - CONCLUSION: Tip of the NG tube appears to be coiled in the stomach. Savana Valdovinos MD Physical Exam GENERAL: This is a well-nourished, well-developed patient, in no apparent distress. SKIN: No rashes, ecchymoses or lesions. Cool and dry. HEAD: Atraumatic. Normocephalic. No temporal or scalp tenderness. EYES: Pupils equal round and reactive. Extraocular motions intact. No scleral icterus. No injection or drainage. ENT: Intubated. NECK: Trachea midline. Supple, nontender, no meningeal signs. CARDIOVASCULAR: Murmur appreciated. RESPIRATORY: Clear to auscultation. Breath sounds diminished on the left side. Chest tube insertion sites with no evidence of infection. [address] on Rt side today. 2 CTs out (1 removed and 1 pulled out) GASTROINTESTINAL: Abdomen soft, non-tender, nondistended. MUSCULOSKELETAL: Extremities without clubbing, cyanosis, or edema. No joint tenderness, effusion, or edema noted. No calf tenderness. Negative Homans sign bilaterally. NEUROLOGICAL: Awake and alert. Nonfocal. Follows commands moves all 4 extremities. Psych cooperative IV line sites with no evidence of infection. Assessment & Plan Remarks Sepsis(fever, tachycardia, source pneumonia) MRSA pneumonia Shayla albicans UTI, likely catheter associated. Status post cardiac catheterization with ruptured pulmonary artery as complication Chest tubes in place for pneumothorax Atrial fibrillation Pacemaker in place Recommendations Continue cefepime IV(attempted to deescalate but clinically did not do well over weekend, increase in WBC and Temps) Continue Zyvox IV may be transitioned to oral if concern for fluid excess and if able to tolerate oral medications. Continue fluconazole IV repeat UA from hillary cordero was positive. Will treat for few days. Follow cultures Follow clinically Discussed with RN as well as patient in the room. d/w Dolores Aleman MD Jun 17, 2017 13:34
[2017-06-17] MEDS: FLUCONAZOLE 200 MG PREMIX BAG 100 ML IV SCH (22:35)
[2017-06-18] VITALS (8 sets, daily range): BP systolic 121–147; BP diastolic 60–75; PULSE 69–80; RESP 16–18; TEMP 97.6–98.1; O2SAT 94–99
[2017-06-18] MEDS: FREE WATER OG-TUBE SCH
[2017-06-18] MEDS: RESP: ALBUTEROL 2.5 MG/IPRATROPIUM 0.5 MG NEB (SCH) NEB ×4 (03:27→21:44)
[2017-06-18] MEDS: DILTIAZEM HCL 60 MG TAB PO SCH ×4 (06:00→18:15)
[2017-06-18] MEDS: METOPROLOL TARTRATE 25 MG TAB PO SCH ×3 (06:00→22:00)
[2017-06-18] MEDS: LEVOTHYROXINE SODIUM 50 MCG TAB PO SCH (06:00)
--- NOTE | 2017-06-18 06:08 | RADRPT ---
EXAM DATE/TIME: 06/18/2017 04:01 [facility] COMPARISON: CHEST SINGLE AP, June 17, 2017, 4:28. INDICATIONS : Short of breath. MEDICAL HISTORY : Congestive heart failure. Hypertension Carcinoma, colon. Aortic stenosis. SURGICAL HISTORY : Pacemaker. Tonsillectomy. Cardiac cath. ENCOUNTER: Subsequent ACUITY: 3 weeks PAIN SCORE: 0/10 LOCATION: Bilateral chest FINDINGS: There has been interval extubation. Nasogastric tube has been removed. Right central line remains in place. Pacemaker device is noted with control pack over the left chest. Embolic coil material over th e left infrahilar region. Consolidative disease in the left lung base with probable small effusion. A irspace disease in the lateral right lung base and diffuse interstitial prominence elsewhere. Cardiac contours are stable. CONCLUSION: Interval extubation. Stable aeration. Alvin Walls MD on June 18, 2017 at 6:06 Board Certified Radiologist. This report was verified electronically.
[2017-06-18 06:16] LABS: AUTOMATED NEUTROPHIL # 17.6 TH/MM3 (1.8-7.7); BASOPHIL % 0.2 % (0.0-2.0); HEMATOCRIT 28.6 % (35.0-46.0); HEMO FLAGS DIFF FINAL; LYMPH % 3.2 % (9.0-44.0); LYMPHOCYTE # 0.6 TH/MM3 (1.0-4.8); MEAN CORPUSCULAR HEMOGLOBIN 29.3 PG (27.0-34.0); MEAN CORPUSCULAR HGB CONC 33.7 % (32.0-36.0); MONO % 4.7 % (0.0-8.0); NEUT % 91.9 % (16.0-70.0); PLATELET COUNT 409 TH/MM3 (150-450); RED BLOOD COUNT 3.29 MIL/MM3 (4.00-5.30); RED CELL DISTRIBUTION WIDTH 15.6 % (11.6-17.2); WHITE BLOOD COUNT 19.1 TH/MM3 (4.0-11.0)
[2017-06-18 06:27] LABS: APTT (PATIENT) 78.3 SEC (24.3-30.1)
[2017-06-18 06:46] LABS: ALKALINE PHOSPHATASE 129 U/L (45-117); ALT (GPT) 40 U/L (10-53); ANION GAP 8 MEQ/L (5-15); AST (GOT) 32 U/L (15-37); BICARBONATE 26.8 MEQ/L (21.0-32.0); BLOOD UREA NITROGEN 30 MG/DL (7-18); CHLORIDE 97 MEQ/L (98-107); GLOMERULAR FILTRATION RATE 79 ML/MIN (>89); POTASSIUM 4.1 MEQ/L (3.5-5.1); SODIUM (NA) 132 MEQ/L (136-145); TOTAL BILIRUBIN ADULT 0.9 MG/DL (0.2-1.0)
[2017-06-18] MEDS: INSULIN ASPART SUPPLEMENTAL SCALE SQ SCH ×2 (08:00→20:00)
[2017-06-18] MEDS: CHLORHEXIDINE 0.12% (ORAL KIT) 15 ML CUP MT SCH ×2 (08:00→20:00)
[2017-06-18] MEDS: RESP: BUDESONIDE 0.5 MG/2 ML NEB NEB SCH ×2 (08:44→21:44)
[2017-06-18] MEDS: POTASSIUM CHLORIDE 25 MEQ EFFERVESCENT TAB PO SCH ×2 (09:00→21:00)
[2017-06-18] MEDS ORDERED: FUROSEMIDE 20 MG/2 ML VIAL IV PUSH SCH (09:00)
[2017-06-18] MEDS: DOCUSATE SODIUM 100 MG/10 ML UDC PO SCH ×2 (09:00→21:00)
[2017-06-18] MEDS: LOSARTAN 50 MG TAB PO SCH (09:20)
[2017-06-18] MEDS: ELTROMBOPAG 50 MG TAB PO SCH (09:20)
[2017-06-18] MEDS: NYSTATIN SUSP 500,000 U/5 ML CUP SWISH-SWAL SCH ×4 (09:20→21:00)
[2017-06-18] MEDS: DIGOXIN 0.125 MG TAB PO SCH (09:21)
[2017-06-18] MEDS: FUROSEMIDE 20 MG/2 ML VIAL IV PUSH SCH (09:22)
[2017-06-18] MEDS: PANTOPRAZOLE SODIUM 40 MG VIAL IV PUSH SCH ×2 (09:22→20:00)
[2017-06-18] MEDS: LINEZOLID 600 MG PREMIX 300 ML IV SCH ×2 (09:38→19:42)
--- NOTE | 2017-06-18 09:46 | HHI.CCPN ---
Subjective Remarks/Hospital Course I was emergently called to trestle mainternance laborer by Dr. Corrales. Ms. Mahoney who is 89 yo female with history of severe aortic stenosis was undergoing left and right heart catheter for TAVR evaluation. With right heart catheterization patient developed acute massive hemoptysis with shock secondary to acute rupture of pulmonary artery. Patient was intubated by Dr. Potter and ETT was advance to Right lung for selective right lung ventilation due to massive hemorrhage from Left lung. On my arrival to trestle mainternance laborer, patient was rapidly dropping blood pressure. Dopamine was already started. I ordered Shantanu-Synephrine, at 300 mcg/ m in an attempt to increase MAP and also increase the pulmonary vasoconstriction. Levophed was also added to maintain blood pressure and rapidly titrated up. Emergency release blood initially 3 units was ordered stat along with 2 units of FFP, 1 unit of platelet. I also emergently contacted Dr. Vásquez was in the office. (Dr. Bedoya the on-call CT surgeon was operating). While on Levophed Shantanu-Synephrine and dopamine, patient developed coarse V. fib/V. tach, received brief CPR, and was DC cardioverted 1 with return of spontaneous circulation and sinus rhythm. I discussed with Dr. Corrales and anesthesiologist, I also contacted Dr. Josue from invasive radiology.Dr. Josue immediately arrived to the trestle mainternance laborer. Dr. Abdelrahman francis performed PARVIN which showed vigorous LV contraction but cavity was empty. Received Continuous massive fluid resuscitation with multiple crystalloid boluses, bicarbonate and calcium. Blood arrived and initially 3 units of PRBC, 2 units of 1 unit of platelets was given with calcium total 3 g given after blood transfusion. Because of persistent hypotension, additional 2 units of PRBC was given. While I resuscitated the patient, Dr. Corrales and Dr. Jennings performed right heart cath, identified bleeding of a small branch in the left pulmonary artery. They put put in 6 coils in the lower left lower pulmonary artery followed with Gelfoam closing the perforation. 06/04: Emergency chest 2 yesterday for right pneumothorax with hypotension and hypoxia. Remains intubated sedated and on Levophed. FiO2 remains at 100%, Sat improving to 94-95 %. UO adequate overnight. 2-D echo on my review normal LV and RV function, no PFO on bubble study 06/05: Patient is in atrial fibrillation currently on Cardene infusion for blood pressure control. Chest x-ray shows percutaneous emphysema and small apical pneumothorax. Remains on 80% FiO2. I discussed with interventional radiology. We will attempt CT-guided repositioning of the pigtail catheter and possibly upgrading to a larger tube. Urine output adequate 750 mL in 24 hours 06/06: Currently remains in A. fib with rate controlled, hypertensive on Cardizem drip. Oxygen saturation has improved FiO2 now to 40% with saturation 97%. Urine output excellent with Lasix 4.5 L in 24 hours. Chest x-ray today shows 2.5 cm bilateral apical pneumothorax, also left side has 1.2 cm lateral pneumothorax 06/07: Intubated, on low dose propofol for ventilator synchrony. FiO2 40% oxygen saturation 99%. Chest x-ray and labs pending urine output 2.7 L. 3 chest tubes with no air leak. If neuro exam not improving off sedation will check CT of the head. Currently on propofol will requisition approver to Precedex to initiate weaning trials. On weaning doses of inhaled Flolan currently on 30, 000 ng 06/08: Remains intubated, mild sedation with Precedex. Overnight FiO2 increased to 65% for hypoxia. CXR left more than right consolidation of lower lobes. Sputum positive for MRSA on vancomycin. Bilateral lower extremity US studies yesterday showed DVT, initiated on IV heparin. Currently therapeutic on heparin. No evidence of pulmonary hemorrhage. Neuro exam is improving weekly follows commands all 4 extremities 06/09: remains intubated. failed CPAP yesterday. on Cleviprex and precedex. fio2 back to 40%. CXR improved aeration with the exception of known LLL. FC x 4. 06/10: failed SBT again for apnea. but much more awake. denies pain. ROS negative. off cleviprex. new air leak in chest tube. will get chest xray to re- eval. 06/11: Warm, well perfused. Alert, cooperative. Communicates with head nod, hand gestures. Comfortable respiratory pattern and acceptable excursions.Air leaks will seal when off positive pressure ventilation. FiO2 to 0.80 last night briefly; now 0.40. I'll come back later today and see if I can get her extubated. 06/12: Required re-intubation for hypoxemic respiratory failure last evening. She is now warm with well perfused fingers and toes. Low dose levophed not hampering peripheral perfusion. Mild prerenal azotemia. CXR with diffuse infiltrates as before. WBC 32,00, afebrile. Must assume colonized lungs at least. Antibiotic coverage is appropriate. Reculture sputum, urine. Progress to weaning trials daily.Hemodynamics appear excellent, rate a minor problem pretty well controlled. Continue Vanc. Stop pip/roxi, start cefepime. Narrow after cultures. Change CVLs, draw blood cultures. 06/13: Persistent leukocytosis, Tmax 100.2. O2 diffusion acceptable on positive pressure ventilation. Sputum culture pending. Remains warm and well perfused. Continue daily spontaneous breathing trials. 06/14: Bronch and BAL this morning by Dr. Muñoz. Gas exchange remains acceptable. Continue SBTs. 06/15: Looks great on SBTs/CPAP. She would benefit from a temporary tracheostomy. But she will eventually be off and extubated for good. C&S pending from BAL. Continue present abx regimen - discussed with Dr. Segura. 06/16: Awake alert following commands on vent. Currently on Precedex 0.5 g per KG per hour. Still has large amount of ETT secretions, but improving. R pigtail dislodged with turning, no pneumo on repeat CXR 06/17: Awake alert on low dose Precedex. Tolerated CPAP yesterday. Not extubated yesterday due copious bloody secretions. The chest x-ray shows some interval improvement and secretions slightly improved. Will proceed with SBT and possible extubation 06/18: Extubated yesterday tolerating very well. Coughing up sputum, cough seems adequate. Slight increase in WBC to 19.1. Received single dose of Decadron yesterday. Overall doing well communicating, no fever Objective Vital Signs Date Time Temp Pulse Resp B/P (MAP) Pulse Ox O2 Delivery O2 Flow Rate FiO2 06/18/17 08:45 94 Nasal Cannula 2.00 06/18/17 07:00 71 06/18/17 07:00 97.7 16 121/66 (84) 06/17/17 08:30 40 Intake and Output 06/18/17 06/18/17 06/19/17 08:00 16:00 00:00 Intake Total 240 ml Output Total 600 ml Balance -360 ml Result Diagram: 06/18/17 0540 06/18/17 0540 Objective Remarks GENERAL: Lying in bed, on NC. Moving extremities with purposefully. SKIN: Skin /dry. ENT: HE is moist NECK: Trachea midline. Supple. CARDIOVASCULAR: Remains in atrial fibrillation, rate well controlled in 80 - 90. Systolic murmur over apex and LSB. RESPIRATORY: Air entry equal bilaterally slightly diminished at the bases. Right chest tube with minimal out put in 24 hours, now to waterseal GASTROINTESTINAL: Abdomen Soft, no guarding. BS active. MUSCULOSKELETAL: New right IJ CVL. Limbs well perfused. 1+ Pedal edema NEUROLOGICAL: Follows commands. Awake, following commands x 4. RASS -0. A/P Assessment and Plan Assessment: 89yF with severe aortic stenosis, course complicated by Pulmonary Artery rupture during right heart catheterization, traumatic pneumothorax secondary to barotrauma, acute hypoxic respiratory failure, MRSA healthcare associated pneumonia, volume overload. Slowly improving extubated 06/17/17 NEURO: Encephalopathy, metabolic - resolved. - Off all continuos sedation - Continue to hold home sertraline - CT of the head and C-spine negative for acute injury RESP: Left lower pulmonary artery rupture with massive hemorrhage Acute hypoxemic respiratory failure MRSA pneumonia Large Left hemothorax s/p IR chest tube placement, residual L pneumo after evacuation Bilateral apical pneumothorax Bilateral lower extremity DVT - s/p coil and Gelfoam closure of Left lower pulmonary artery (peripheral small branch) by Rhoda Corrales and Michaela (see resuscitation note on 06/03/17) - extubated 06/16/17, tolerating well. - Chest x-ray confirms pneumonia vs lung infarct. Sputum with MRSA. on Zyvox - s/p chest tube x2 for right pneumothorax on 06/03. New apical chest tube placed 06/06/17 - IR, placed 24 F Left chest tube 06/05 with drainage of 2 L hemothorax, residual pneumothorax present, now resolved - CXR 06/07, resolution of right improving subcutaneous emphysema. Small residual left apical pneumo - s/p Bronchoscopy with removal of blood predominantly from L lung, s/p repeat bronch 06/06, 06/15 - DuoNeb q 6hours and PRN. INH Budesonide, Single dose of decadron 6 mg IV x1 - Venous duplex -bilateral lower extremity DVT. IV heparin started 06/07/17 therapeutic - Required re-intubation 06/02 for hypoxemia. CV/Heme: Hemorrhagic shock-resolved Bilateral lower extremity DVT Anemia requiring transfusion Severe Aortic Stenosis Atrial fibrillation with RVR Possible history of ITP - IV heparin started 06/07/17 for bilateral lower extremity DVT and atrial fibrillation, watch closely for bloody chest tube output and hemoptysis - Continue home Cardizem CD 120 mg daily. - Cleviprex, when necessary hydralazine (well beta blocked) to keep systolic blood pressure less than 150 - Continue IV Lasix, 20 mg daily, additional 20 mg again today. Home metoprolol at 25 mg by mouth every 8 hours. Home dose of digoxin - On Multaq at home. Defer to Dr. Corrales - Received 6 units of emergency release blood, 2 units of FFP and one of platelets 06/03/17. Multiple crystalloid boluses were given, PARVIN normal LV contractility, volume depletion - 2D Echo 06/04 RV LV function look normal, no PFO - Promacta for ITP - hydralazine 50mg po q8hr and losartan 100mg daily (06/09). now off cleviprex. GI: - Speech therapy cleared for heart healthy diet. Having regular BMs : - Monitor renal function closely. Payne catheter. Urine output adequate - IV Lasix 20 daily with 20 mg IV additional dose ID: MRSA pneumonia - Continue cefepime and Zyvox. WBC stable. Dr. Segura following - BAL culture MRSA. - Reculture sputum, blood, urine ENDO: Hypokalemia Hypomagnesemia - Replace electrolytes per protocol PROPH: - DCd SCDs due to DVT. IV Protonix. IV heparin started 06/07 LINES: - Left femoral cordis and central line D/c'd 06/04. New LIJ central line placed 06/04 -> out 06/12 New Left IJ CVL 06/12-Will DC today 06/18 Overall impression: Required re-intubation for diffusion problem 06/11, extubated again 06/17 tolerating well. Consistent with interstitial edema and loss of FRC. level 2 Tanika Esquivel MD Jun 18, 2017 09:46
--- NOTE | 2017-06-18 10:45 | PD.CARD.PN ---
Subjective Subjective Remarks Extubated No overnight events Moving all extremities afebrile Objective Medications Current Medications Medications (Trade) Dose Ordered Sig/Padmini Route Start Time Stop Time Status Last Admin (Peridex 0.12% Liq) 15 ml BID@08,20 MT 06/03/17 20:00 06/17/17 08:00 (Duoneb Neb) 1 ampule Q2HR NEB PRN NEB 06/03/17 19:00 06/15/17 19:56 (Protonix Inj) 40 mg Q12H IV PUSH 06/03/17 20:00 06/18/17 09:22 Potassium Chloride 100 ml @ 50 mls/hr Q2H PRN IV 06/03/17 19:15 06/09/17 08:04 Potassium Chloride 100 ml @ 50 mls/hr Q2H PRN IV 06/03/17 19:15 (K-Lyte Cl Eff) 50 meq UNSCH PRN PO 06/03/17 19:15 Potassium Chloride 100 ml @ 25 mls/hr UNSCH PRN IV 06/03/17 19:15 06/06/17 18:46 Potassium Chloride 100 ml @ 50 mls/hr Q2H PRN IV 06/03/17 19:15 06/13/17 08:23 Magnesium Sulfate 4 gm/Sodium Chloride 100 ml @ 50 mls/hr UNSCH PRN IV 06/03/17 19:15 (Mag-Ox) 800 mg UNSCH PRN PO 06/03/17 19:15 Magnesium Sulfate 2 gm/Sodium Chloride 100 ml @ 50 mls/hr UNSCH PRN IV 06/03/17 19:15 06/04/17 16:45 (K-Phos) 2,000 mg Q4H PRN PO 06/03/17 19:15 Sodium Phosphate 30 mmol/Sodium Chloride 250 ml @ 42 mls/hr UNSCH PRN IV 06/03/17 19:15 (K-Phos) 2,000 mg UNSCH PRN PO/TUBE 06/03/17 19:15 Potassium Phosphate 30 mmol/ Sodium Chloride 260 ml @ 42 mls/hr UNSCH PRN IV 06/03/17 19:15 06/13/17 12:03 (D50w (Vial) Inj) 50 ml UNSCH PRN IV PUSH 06/04/17 12:15 (Glucagon Inj) 1 mg UNSCH PRN OTHER 06/04/17 12:15 (Lopressor Inj) 1.25 mg Q6H PRN IV PUSH 06/04/17 19:15 06/06/17 20:29 (Colace Liq) 100 mg Q12HR PO 06/05/17 14:00 06/16/17 20:38 (K-Lyte Cl Eff) 25 meq Q12HR PO 06/05/17 14:00 06/17/17 22:35 (Lanoxin) 0.125 mg DAILY PO 06/06/17 09:00 06/18/17 09:21 (Lasix Inj) 20 mg DAILY IV PUSH 06/07/17 09:00 06/18/17 09:22 (Lopressor) 25 mg Q8HR PO 06/07/17 14:00 06/18/17 06:00 (Cozaar) 50 mg DAILY PO 06/07/17 09:00 06/18/17 09:20 (Apresoline Inj) 20 mg Q4H PRN IV PUSH 06/07/17 08:00 06/14/17 01:21 (Synthroid) 50 mcg DAILY@0600 PO 06/07/17 08:00 06/18/17 06:00 (Promacta) 25 mg DAILY@1000 PO 06/08/17 10:00 06/18/17 09:20 (Heparin Inj) 5,000 units UNSCH PRN IV PUSH 06/07/17 22:00 (Heparin Inj) 2,500 units UNSCH PRN IV PUSH 06/07/17 22:00 (Pill Splitter) 1 ea UNSCH PRN OTHER 06/07/17 22:15 (NovoLOG SUPPLEMENTAL SCALE) 1 BID@0800,2000 SQ 06/08/17 20:00 06/15/17 08:43 (Mycostatin Liq) 5 ml QID SWISH-SWAL 06/12/17 13:00 06/18/17 09:20 (Cardizem) 60 mg Q6HR PO 06/13/17 12:00 06/18/17 06:00 Linezolid 300 ml @ 300 mls/hr Q12H IV 06/13/17 19:00 06/18/17 09:38 Fluconazole/ Sodium Chloride 100 ml @ 100 mls/hr Q24H IV 06/13/17 21:00 10/31/17 22:35 Cefepime HCl 2000 mg/Sodium Chloride 100 ml @ 200 mls/hr Q12H IV 06/14/17 21:00 06/17/17 22:35 Heparin Sodium/ Dextrose 250 ml @ 11 mls/hr TITRATE IV 06/16/17 07:30 06/17/17 10:18 (Pulmicort Respule Neb) 0.5 mg Q12HR NEB NEB 06/16/17 11:15 06/18/17 08:44 (Duoneb Neb) 1 ampule Q6HR NEB NEB 06/17/17 10:00 06/18/17 08:45 (Tylenol 650 Mg/ 20 ml Liq) 650 mg Q6H PRN PO 06/18/17 06:30 (Lasix Inj) 20 mg ONCE ONCE IV PUSH 06/18/17 10:15 06/18/17 10:16 UNV Vital Signs / I&O Vital Signs Date Time Temp Pulse Resp B/P (MAP) Pulse Ox O2 Delivery O2 Flow Rate FiO2 06/18/17 08:45 94 Nasal Cannula 2.00 06/18/17 07:00 71 06/18/17 07:00 97.7 71 16 121/66 (84) 96 06/18/17 03:00 74 06/18/17 03:00 98.0 80 18 139/64 (89) 99 06/17/17 23:00 97.8 74 18 143/56 (85) 99 06/17/17 23:00 72 06/17/17 21:33 98 Nasal Cannula 2.00 06/17/17 19:00 76 06/17/17 19:00 97.6 70 18 110/62 (78) 99 06/17/17 16:00 98.6 79 16 129/51 (77) 99 06/17/17 16:00 79 06/17/17 11:00 97.9 84 18 157/68 (97) 99 06/17/17 11:00 84 I/O 06/17/17 06/17/17 06/17/17 06/18/17 06/18/17 06/18/17 07:00 15:00 23:00 07:00 15:00 23:00 Intake Total 972 ml 400 ml 482 ml 240 ml Output Total 400 ml 2526 ml 600 ml Balance 572 ml 400 ml -2044 ml -360 ml Intake Oral 50 ml 40 ml IV Total 100 ml 400 ml 432 ml 200 ml Tube Feeding 372 ml Other 500 ml Output Urine Total 400 ml 2526 ml 600 ml Chest Tube Drainage Total 0 ml 0 ml 0 ml # Bowel Movements 1 3 2 Physical Exam GENERAL: Intubated, pupils reactive, Alert, awake, oriented SKIN: Warm and dry. HEAD: Normocephalic. EYES: No scleral icterus. No injection or drainage. NECK: Supple, trachea midline. No JVD or lymphadenopathy. CARDIOVASCULAR: Irr Irr 2/6SEM no gallops, or rubs. RESPIRATORY: Vented. GASTROINTESTINAL: Abdomen soft, non-tender, nondistended. EXTREMITIES: No cyanosis, or +edema. Laboratory Laboratory Tests Test 06/18/17 05:40 White Blood Count 19.1 TH/MM3 Red Blood Count 3.29 MIL/MM3 Hemoglobin 9.7 GM/DL Hematocrit 28.6 % Mean Corpuscular Volume 87.0 FL Mean Corpuscular Hemoglobin 29.3 PG Mean Corpuscular Hemoglobin Concent 33.7 % Red Cell Distribution Width 15.6 % Platelet Count 409 TH/MM3 Mean Platelet Volume 7.7 FL Neutrophils (%) (Auto) 91.9 % Lymphocytes (%) (Auto) 3.2 % Monocytes (%) (Auto) 4.7 % Eosinophils (%) (Auto) 0.0 % Basophils (%) (Auto) 0.2 % Neutrophils # (Auto) 17.6 TH/MM3 Lymphocytes # (Auto) 0.6 TH/MM3 Monocytes # (Auto) 0.9 TH/MM3 Eosinophils # (Auto) 0.0 TH/MM3 Basophils # (Auto) 0.0 TH/MM3 CBC Comment DIFF FINAL Differential Comment Activated Partial Thromboplast Time 78.3 SEC Blood Urea Nitrogen 30 MG/DL Creatinine 0.70 MG/DL Random Glucose 112 MG/DL Total Protein 5.7 GM/DL Albumin 1.8 GM/DL Calcium Level 8.4 MG/DL Alkaline Phosphatase 129 U/L Aspartate Amino Transf (AST/SGOT) 32 U/L Alanine Aminotransferase (ALT/SGPT) 40 U/L Total Bilirubin 0.9 MG/DL Sodium Level 132 MEQ/L Potassium Level 4.1 MEQ/L Chloride Level 97 MEQ/L Carbon Dioxide Level 26.8 MEQ/L Anion Gap 8 MEQ/L Estimat Glomerular Filtration Rate 79 ML/MIN Imaging Last 24 hours Impressions Chest X-Ray 06/18/17 0600 Signed Impressions: Service Date/Time: Sunday, June 18, 2017 04:01 - CONCLUSION: Interval extubation. Stable aeration. Alvin Walls MD Assessment and Plan Problem List: (1) Shock, postoperative ICD Codes: T81.10XA - Postprocedural shock unspecified, initial encounter Status: Resolved Plan: Extubated yesterday tolerating very well. Slight increase in WBC to 19.1. Steroids given yesterday. Afebrile Moving extremities, pupils reactive Recommendations: - Avoid electrolytes imbalance - Cont rate control for afib - Start Coumadin (H&H stable) - Appreciate ID recs. Started on IV Linezolid - Out o bed to chair - PT/OT Case discuss with [employer] and Family (2) Pulmonary arterial thrombosis ICD Codes: I26.99 - Other pulmonary embolism without acute cor pulmonale Status: Acute (3) CAD (coronary artery disease) ICD Codes: I25.10 - Atherosclerotic heart disease of three affiliated coronary artery without angina pectoris (4) Aortic stenosis ICD Codes: I35.0 - Nonrheumatic aortic (valve) stenosis Brad Page MD Jun 18, 2017 10:45
[2017-06-18] MEDS: CEFEPIME INJ 2,000 MG in SODIUM CHLORIDE 0.9% INJ 100 ML IV SCH ×2 (10:53→21:00)
[2017-06-18] MEDS ORDERED: FUROSEMIDE 20 MG/2 ML VIAL IV PUSH ONE (11:00)
[2017-06-18] MEDS: FLUCONAZOLE 200 MG PREMIX BAG 100 ML IV SCH (21:00)
[2017-06-19] VITALS (8 sets, daily range): BP systolic 119–155; BP diastolic 54–63; PULSE 68–70; RESP 14–18; TEMP 97.7–98.2; O2SAT 96–99
[2017-06-19] MEDS: HEPARIN 25,000 UNITS-D5W 250 ML - PREMIX IV SCH (01:37)
[2017-06-19] MEDS: RESP: ALBUTEROL 2.5 MG/IPRATROPIUM 0.5 MG NEB (SCH) NEB ×4 (03:54→20:57)
--- NOTE | 2017-06-19 04:25 | RADRPT ---
EXAM DATE/TIME: 06/19/2017 04:07 [facility] COMPARISON: CHEST SINGLE AP, June 18, 2017, 4:01. INDICATIONS : Shortness of breath, possible pulmonary disease. MEDICAL HISTORY : Congestive heart failure. Hypertension Carcinoma, colon. SURGICAL HISTORY : Pacemaker. Tonsillectomy. ENCOUNTER: Subsequent ACUITY: 3 weeks PAIN SCORE: Non-responsive. LOCATION: Bilateral chest FINDINGS: There has been interval removal of a right neck central line. Pacemaker device is noted with control pack over the left chest. Aeration is grossly stable with mild interstitial prominence diffusely and alveolar opacities in the bases, left worse than right. Cardiac contours are unchanged. CONCLUSION: Central line removal. Otherwise stable chest Alvin Walls MD on June 19, 2017 at 4:23 Board Certified Radiologist. This report was verified electronically.
[2017-06-19 05:02] LABS: ALT (GPT) 42 U/L (10-53); ANION GAP 8 MEQ/L (5-15); AST (GOT) 33 U/L (15-37); BICARBONATE 29.8 MEQ/L (21.0-32.0); BLOOD UREA NITROGEN 26 MG/DL (7-18); CHLORIDE 98 MEQ/L (98-107); GLOMERULAR FILTRATION RATE 81 ML/MIN (>89); MAGNESIUM 2.4 MG/DL (1.5-2.5); POTASSIUM 4.2 MEQ/L (3.5-5.1); SODIUM (NA) 136 MEQ/L (136-145)
[2017-06-19 05:05] LABS: ALKALINE PHOSPHATASE 134 U/L (45-117); TOTAL BILIRUBIN ADULT 0.9 MG/DL (0.2-1.0)
[2017-06-19 05:21] LABS: AUTOMATED NEUTROPHIL # 15.3 TH/MM3 (1.8-7.7); BASOPHIL # 0.1 TH/MM3 (0-0.2); BASOPHIL % 0.5 % (0.0-2.0); EOSINOPHIL % 0.3 % (0.0-4.0); HEMATOCRIT 32.9 % (35.0-46.0); HEMO FLAGS DIFF FINAL; LYMPH % 5.6 % (9.0-44.0); MEAN CELL VOLUME 86.9 FL (80.0-100.0); MEAN CORPUSCULAR HEMOGLOBIN 29.6 PG (27.0-34.0); MONO % 5.4 % (0.0-8.0); NEUT % 88.2 % (16.0-70.0); PLATELET COUNT 440 TH/MM3 (150-450); RED BLOOD COUNT 3.79 MIL/MM3 (4.00-5.30); RED CELL DISTRIBUTION WIDTH 16.1 % (11.6-17.2); WHITE BLOOD COUNT 17.4 TH/MM3 (4.0-11.0)
[2017-06-19 05:24] LABS: APTT (PATIENT) 93.4 SEC (24.3-30.1)
[2017-06-19] MEDS: LEVOTHYROXINE SODIUM 50 MCG TAB PO SCH (06:00)
[2017-06-19] MEDS: METOPROLOL TARTRATE 25 MG TAB PO SCH ×3 (06:00→21:33)
[2017-06-19] MEDS: DILTIAZEM HCL 60 MG TAB PO SCH ×4 (06:00→18:51)
[2017-06-19] MEDS: CHLORHEXIDINE 0.12% (ORAL KIT) 15 ML CUP MT SCH ×2 (08:00→20:00)
[2017-06-19] MEDS: INSULIN ASPART SUPPLEMENTAL SCALE SQ SCH ×2 (08:00→20:00)
--- NOTE | 2017-06-19 08:16 | HHI.CCPN ---
Subjective Remarks/Hospital Course I was emergently called to labor relations consultant by Dr. Corrales. Ms. Mahoney who is 89 yo female with history of severe aortic stenosis was undergoing left and right heart catheter for TAVR evaluation. With right heart catheterization patient developed acute massive hemoptysis with shock secondary to acute rupture of pulmonary artery. Patient was intubated by Dr. Potter and ETT was advance to Right lung for selective right lung ventilation due to massive hemorrhage from Left lung. On my arrival to labor relations consultant, patient was rapidly dropping blood pressure. Dopamine was already started. I ordered Shantanu-Synephrine, at 300 mcg/ m in an attempt to increase MAP and also increase the pulmonary vasoconstriction. Levophed was also added to maintain blood pressure and rapidly titrated up. Emergency release blood initially 3 units was ordered stat along with 2 units of FFP, 1 unit of platelet. I also emergently contacted Dr. Vásquez was in the office. (Dr. Bedoya the on-call CT surgeon was operating). While on Levophed Shantanu-Synephrine and dopamine, patient developed coarse V. fib/V. tach, received brief CPR, and was DC cardioverted 1 with return of spontaneous circulation and sinus rhythm. I discussed with Dr. Corrales and anesthesiologist, I also contacted Dr. Josue from invasive radiology.Dr. Josue immediately arrived to the labor relations consultant. Dr. Abdelrahman francis performed PARVIN which showed vigorous LV contraction but cavity was empty. Received Continuous massive fluid resuscitation with multiple crystalloid boluses, bicarbonate and calcium. Blood arrived and initially 3 units of PRBC, 2 units of 1 unit of platelets was given with calcium total 3 g given after blood transfusion. Because of persistent hypotension, additional 2 units of PRBC was given. While I resuscitated the patient, Dr. Corrales and Dr. Jennings performed right heart cath, identified bleeding of a small branch in the left pulmonary artery. They put put in 6 coils in the lower left lower pulmonary artery followed with Gelfoam closing the perforation. 06/04: Emergency chest 2 yesterday for right pneumothorax with hypotension and hypoxia. Remains intubated sedated and on Levophed. FiO2 remains at 100%, Sat improving to 94-95 %. UO adequate overnight. 2-D echo on my review normal LV and RV function, no PFO on bubble study 06/05: Patient is in atrial fibrillation currently on Cardene infusion for blood pressure control. Chest x-ray shows percutaneous emphysema and small apical pneumothorax. Remains on 80% FiO2. I discussed with interventional radiology. We will attempt CT-guided repositioning of the pigtail catheter and possibly upgrading to a larger tube. Urine output adequate 750 mL in 24 hours 06/06: Currently remains in A. fib with rate controlled, hypertensive on Cardizem drip. Oxygen saturation has improved FiO2 now to 40% with saturation 97%. Urine output excellent with Lasix 4.5 L in 24 hours. Chest x-ray today shows 2.5 cm bilateral apical pneumothorax, also left side has 1.2 cm lateral pneumothorax 06/07: Intubated, on low dose propofol for ventilator synchrony. FiO2 40% oxygen saturation 99%. Chest x-ray and labs pending urine output 2.7 L. 3 chest tubes with no air leak. If neuro exam not improving off sedation will check CT of the head. Currently on propofol will telephone exchange operator to Precedex to initiate weaning trials. On weaning doses of inhaled Flolan currently on 30, 000 ng 06/08: Remains intubated, mild sedation with Precedex. Overnight FiO2 increased to 65% for hypoxia. CXR left more than right consolidation of lower lobes. Sputum positive for MRSA on vancomycin. Bilateral lower extremity US studies yesterday showed DVT, initiated on IV heparin. Currently therapeutic on heparin. No evidence of pulmonary hemorrhage. Neuro exam is improving weekly follows commands all 4 extremities 06/09: remains intubated. failed CPAP yesterday. on Cleviprex and precedex. fio2 back to 40%. CXR improved aeration with the exception of known LLL. FC x 4. 06/10: failed SBT again for apnea. but much more awake. denies pain. ROS negative. off cleviprex. new air leak in chest tube. will get chest xray to re- eval. 06/11: Warm, well perfused. Alert, cooperative. Communicates with head nod, hand gestures. Comfortable respiratory pattern and acceptable excursions.Air leaks will seal when off positive pressure ventilation. FiO2 to 0.80 last night briefly; now 0.40. I'll come back later today and see if I can get her extubated. 06/12: Required re-intubation for hypoxemic respiratory failure last evening. She is now warm with well perfused fingers and toes. Low dose levophed not hampering peripheral perfusion. Mild prerenal azotemia. CXR with diffuse infiltrates as before. WBC 32,00, afebrile. Must assume colonized lungs at least. Antibiotic coverage is appropriate. Reculture sputum, urine. Progress to weaning trials daily.Hemodynamics appear excellent, rate a minor problem pretty well controlled. Continue Vanc. Stop pip/roxi, start cefepime. Narrow after cultures. Change CVLs, draw blood cultures. 06/13: Persistent leukocytosis, Tmax 100.2. O2 diffusion acceptable on positive pressure ventilation. Sputum culture pending. Remains warm and well perfused. Continue daily spontaneous breathing trials. 06/14: Bronch and BAL this morning by Dr. Muñoz. Gas exchange remains acceptable. Continue SBTs. 06/15: Looks great on SBTs/CPAP. She would benefit from a temporary tracheostomy. But she will eventually be off and extubated for good. C&S pending from BAL. Continue present abx regimen - discussed with Dr. Segura. 06/16: Awake alert following commands on vent. Currently on Precedex 0.5 g per KG per hour. Still has large amount of ETT secretions, but improving. R pigtail dislodged with turning, no pneumo on repeat CXR 06/17: Awake alert on low dose Precedex. Tolerated CPAP yesterday. Not extubated yesterday due copious bloody secretions. The chest x-ray shows some interval improvement and secretions slightly improved. Will proceed with SBT and possible extubation 06/18: Extubated yesterday tolerating very well. Coughing up sputum, cough seems adequate. Slight increase in WBC to 19.1. Received single dose of Decadron yesterday. Overall doing well communicating, no fever 06/19: WBC count slightly improved 17.9. Otherwise breathing comfortably. Single episode of delirium overnight. Will remove Payne today and also remove right chest tube Objective Vital Signs Date Time Temp Pulse Resp B/P (MAP) Pulse Ox O2 Delivery O2 Flow Rate FiO2 06/19/17 03:00 69 06/19/17 03:00 97.8 18 127/55 (79) 96 06/18/17 22:04 Nasal Cannula 2.00 06/17/17 08:30 40 Intake and Output 06/19/17 06/19/17 06/20/17 08:00 16:00 00:00 Intake Total 200 ml Output Total 850 ml Balance -650 ml Result Diagram: 06/19/1735006/19/17 035 Objective Remarks GENERAL: Lying in bed, on NC. Breathing conformably SKIN: Skin/dry. ENT: Oral cavity is moist NECK: Trachea midline. Supple. CARDIOVASCULAR: Remains in atrial fibrillation, rate well controlled in 80 - 90. Systolic murmur over apex and LSB. RESPIRATORY: Air entry equal bilaterally slightly diminished at the bases. Right chest tube with minimal out put in 24 hours, now to waterseal-plan to remove today GASTROINTESTINAL: Abdomen Soft, no guarding. BS active. MUSCULOSKELETAL: New right IJ CVL. Limbs well perfused. 1+ Pedal edema NEUROLOGICAL: Follows commands. Awake, following commands x 4. RASS -0. A/P Assessment and Plan Assessment: 89yF with severe aortic stenosis, course complicated by Pulmonary Artery rupture during right heart catheterization, traumatic pneumothorax secondary to barotrauma, acute hypoxic respiratory failure, MRSA healthcare associated pneumonia, volume overload. Slowly improving extubated 06/17/17 NEURO: Encephalopathy, metabolic - resolved. - Continue to hold home sertraline. Tylenol PRN - CT of the head and C-spine negative for acute injury RESP: Left lower pulmonary artery rupture with massive hemorrhage Acute hypoxemic respiratory failure MRSA pneumonia Large Left hemothorax s/p IR chest tube placement, residual L pneumo after evacuation Bilateral apical pneumothorax Bilateral lower extremity DVT - s/p coil and Gelfoam closure of Left lower pulmonary artery (peripheral small branch) by Rhoda Corrales and Michaela (see resuscitation note on 06/03/17) - extubated 06/16/17, tolerating well. (Required re-intubation 06/02 for hypoxemia) - Chest x-ray LLL pneumonia vs lung infarct. Sputum with MRSA. on Zyvox - s/p chest tube x2 for right pneumothorax on 06/03. New apical chest tube placed 06/06/17 - IR, placed 24 F Left chest tube 06/05 with drainage of 2 L hemothorax, residual pneumothorax present, now resolved - CXR 06/07, resolution of right improving subcutaneous emphysema. Small residual left apical pneumo - s/p Bronchoscopy with removal of blood predominantly from L lung, s/p repeat bronch 06/06, 06/15 - DuoNeb q 6hours and PRN. INH Budesonide, Single dose of decadron 6 mg IV x1 - Venous duplex -bilateral lower extremity DVT. IV heparin started 06/07/17 therapeutic - Remove R chest tube today CV/Heme: Hemorrhagic shock-resolved Bilateral lower extremity DVT Anemia requiring transfusion Severe Aortic Stenosis Atrial fibrillation with RVR Possible history of ITP - IV heparin started 06/07/17 for bilateral lower extremity DVT and atrial fibrillation, watch closely for bleeding - Continue home Cardizem CD 120 mg daily. - Cleviprex, when necessary hydralazine (well beta blocked) to keep systolic blood pressure less than 150 - Continue IV Lasix, 20 mg daily, additional 20 mg again today, increase to 20 mg IV q12 06/19. Home metoprolol at 25 mg by mouth every 8 hours. Home dose of digoxin - On Multaq at home. Defer to Dr. Corrales - Received 6 units of emergency release blood, 2 units of FFP and one of platelets 06/03/17. Multiple crystalloid boluses were given, PARVIN normal LV contractility, volume depletion - 2D Echo 06/04 RV LV function look normal, no PFO - Promacta for ITP - hydralazine 50mg po q8hr and losartan 100mg daily (06/09). now off cleviprex. GI: - Speech therapy cleared for heart healthy diet. Having regular BMs : - Monitor renal function closely. Payne catheter. Urine output adequate - IV Lasix 20 md q12 ID: MRSA pneumonia - Continue cefepime and Zyvox. WBC stable. Dr. Segura following - BAL culture MRSA. - Reculture sputum, blood, urine ENDO: Hypokalemia Hypomagnesemia - Replace electrolytes per protocol PROPH: - DCd SCDs due to DVT. IV Protonix. IV heparin started 06/07 LINES: - Left femoral cordis and central line D/c'd 06/04. New LIJ central line placed 06/04 -> out 06/12 DC Payne and R chest tube removed 06/19/17 New Left IJ CVL 06/12-Will DCd 06/18 Overall impression: Required re-intubation for diffusion problem 06/11, extubated again 06/17 tolerating well. Post re intubation CXR was consistent with interstitial edema and loss of FRC. level 2 Tanika Esquivel MD Jun 19, 2017 08:16
[2017-06-19] MEDS: PANTOPRAZOLE SODIUM 40 MG VIAL IV PUSH SCH ×2 (08:41→20:50)
[2017-06-19] MEDS: NYSTATIN SUSP 500,000 U/5 ML CUP SWISH-SWAL SCH ×4 (08:41→20:49)
[2017-06-19] MEDS: ELTROMBOPAG 50 MG TAB PO SCH (08:41)
[2017-06-19] MEDS: LOSARTAN 50 MG TAB PO SCH (08:42)
[2017-06-19] MEDS: DIGOXIN 0.125 MG TAB PO SCH (08:42)
[2017-06-19] MEDS: LEVOFLOXACIN 500 MG TAB PO SCH (08:42)
[2017-06-19] MEDS: FUROSEMIDE 20 MG/2 ML VIAL IV PUSH SCH ×2 (08:42→20:50)
[2017-06-19] MEDS: POTASSIUM CHLORIDE 25 MEQ EFFERVESCENT TAB PO SCH ×2 (08:43→20:49)
[2017-06-19 08:54] LABS: BACTERIA, URINE RARE /hpf; BLOOD, URINE NEG (NEG); COMMENT (UR) CATH-CULTURE IND; CULTURE IF INDICATED CATH CULTURE IND; GLUCOSE,URINE NEG (NEG); HYALINE CAST, URINE 1 /lpf (RARE); KETONE, URINE NEG (NEG); MUCUS URINE FEW /lpf (OCC); NITRITE,URINE NEG (NEG); SQUAMOUS EPITHELIAL CELL URINE <1 /hpf (0-5); URINE COLOR YELLOW (YELLW/STRAW)
[2017-06-19] MEDS ORDERED: LINEZOLID 600 MG TAB PO SCH (09:00)
[2017-06-19] MEDS: DOCUSATE SODIUM 100 MG/10 ML UDC PO SCH ×2 (09:00→20:51)
--- NOTE | 2017-06-19 09:11 | PD.CARD.PN ---
Subjective Subjective Remarks Extubated No overnight events Moving all extremities afebrile Objective Medications Current Medications Medications (Trade) Dose Ordered Sig/Padmini Route Start Time Stop Time Status Last Admin (Peridex 0.12% Liq) 15 ml BID@08,20 MT 06/03/17 20:00 06/17/17 08:00 (Duoneb Neb) 1 ampule Q2HR NEB PRN NEB 06/03/17 19:00 06/15/17 19:56 (Protonix Inj) 40 mg Q12H IV PUSH 06/03/17 20:00 06/19/17 08:41 Potassium Chloride 100 ml @ 50 mls/hr Q2H PRN IV 06/03/17 19:15 06/09/17 08:04 Potassium Chloride 100 ml @ 50 mls/hr Q2H PRN IV 06/03/17 19:15 (K-Lyte Cl Eff) 50 meq UNSCH PRN PO 06/03/17 19:15 Potassium Chloride 100 ml @ 25 mls/hr UNSCH PRN IV 06/03/17 19:15 06/06/17 18:46 Potassium Chloride 100 ml @ 50 mls/hr Q2H PRN IV 06/03/17 19:15 06/13/17 08:23 Magnesium Sulfate 4 gm/Sodium Chloride 100 ml @ 50 mls/hr UNSCH PRN IV 06/03/17 19:15 (Mag-Ox) 800 mg UNSCH PRN PO 06/03/17 19:15 Magnesium Sulfate 2 gm/Sodium Chloride 100 ml @ 50 mls/hr UNSCH PRN IV 06/03/17 19:15 06/04/17 16:45 (K-Phos) 2,000 mg Q4H PRN PO 06/03/17 19:15 Sodium Phosphate 30 mmol/Sodium Chloride 250 ml @ 42 mls/hr UNSCH PRN IV 06/03/17 19:15 (K-Phos) 2,000 mg UNSCH PRN PO/TUBE 06/03/17 19:15 Potassium Phosphate 30 mmol/ Sodium Chloride 260 ml @ 42 mls/hr UNSCH PRN IV 06/03/17 19:15 06/13/17 12:03 (D50w (Vial) Inj) 50 ml UNSCH PRN IV PUSH 06/04/17 12:15 (Glucagon Inj) 1 mg UNSCH PRN OTHER 06/04/17 12:15 (Lopressor Inj) 1.25 mg Q6H PRN IV PUSH 06/04/17 19:15 06/06/17 20:29 (Colace Liq) 100 mg Q12HR PO 06/05/17 14:00 06/16/17 20:38 (K-Lyte Cl Eff) 25 meq Q12HR PO 06/05/17 14:00 06/19/17 08:43 (Lanoxin) 0.125 mg DAILY PO 06/06/17 09:00 06/19/17 08:42 (Lopressor) 25 mg Q8HR PO 06/07/17 14:00 06/19/17 06:00 (Cozaar) 50 mg DAILY PO 06/07/17 09:00 06/19/17 08:42 (Apresoline Inj) 20 mg Q4H PRN IV PUSH 06/07/17 08:00 06/14/17 01:21 (Synthroid) 50 mcg DAILY@0600 PO 06/07/17 08:00 06/19/17 06:00 (Promacta) 25 mg DAILY@1000 PO 06/08/17 10:00 06/19/17 08:41 (Heparin Inj) 5,000 units UNSCH PRN IV PUSH 06/07/17 22:00 (Heparin Inj) 2,500 units UNSCH PRN IV PUSH 06/07/17 22:00 (Pill Splitter) 1 ea UNSCH PRN OTHER 06/07/17 22:15 (NovoLOG SUPPLEMENTAL SCALE) 1 BID@0800,2000 SQ 06/08/17 20:00 06/15/17 08:43 (Mycostatin Liq) 5 ml QID SWISH-SWAL 06/12/17 13:00 06/19/17 08:41 (Cardizem) 60 mg Q6HR PO 06/13/17 12:00 06/19/17 06:00 Heparin Sodium/ Dextrose 250 ml @ 11 mls/hr TITRATE IV 06/16/17 07:30 06/19/17 01:37 (Pulmicort Respule Neb) 0.5 mg Q12HR NEB NEB 06/16/17 11:15 06/18/17 21:44 (Duoneb Neb) 1 ampule Q6HR NEB NEB 06/17/17 10:00 06/19/17 03:54 (Tylenol 650 Mg/ 20 ml Liq) 650 mg Q6H PRN PO 06/18/17 06:30 (Lasix Inj) 20 mg Q12H IV PUSH 06/19/17 09:00 06/19/17 08:42 (Levaquin) 500 mg DAILY PO 06/19/17 09:00 06/19/17 08:42 (Zyvox) 600 mg Q12HR PO 06/19/17 09:00 Vital Signs / I&O Vital Signs Date Time Temp Pulse Resp B/P (MAP) Pulse Ox O2 Delivery O2 Flow Rate FiO2 06/19/17 03:00 69 06/19/17 03:00 97.8 69 18 127/55 (79) 96 06/18/17 23:00 97.7 70 18 133/60 (84) 95 06/18/17 23:00 71 06/18/17 22:04 98 Nasal Cannula 2.00 06/18/17 19:00 69 06/18/17 19:00 97.6 70 18 147/63 (91) 98 06/18/17 15:00 72 06/18/17 15:00 98.1 72 16 146/60 (88) 98 06/18/17 11:00 97.8 75 16 125/75 (92) 96 06/18/17 11:00 70 I/O 06/18/17 06/18/17 06/18/17 06/19/17 06/19/17 06/19/17 07:00 15:00 23:00 07:00 15:00 23:00 Intake Total 240 ml 700 ml 200 ml Output Total 600 ml 1675 ml 850 ml Balance -360 ml -975 ml -650 ml Intake Oral 40 ml 200 ml 200 ml IV Total 200 ml 500 ml Output Urine Total 600 ml 1675 ml 850 ml Chest Tube Drainage Total 0 ml 0 ml # Bowel Movements 2 2 1 Physical Exam GENERAL: Intubated, pupils reactive, Alert, awake, oriented SKIN: Warm and dry. HEAD: Normocephalic. EYES: No scleral icterus. No injection or drainage. NECK: Supple, trachea midline. No JVD or lymphadenopathy. CARDIOVASCULAR: Irr Irr 2/6SEM no gallops, or rubs. RESPIRATORY: Vented. GASTROINTESTINAL: Abdomen soft, non-tender, nondistended. EXTREMITIES: No cyanosis, or +edema. Laboratory Laboratory Tests Test 06/19/17 03:51 06/19/17 06:45 White Blood Count 17.4 TH/MM3 Red Blood Count 3.79 MIL/MM3 Hemoglobin 11.2 GM/DL Hematocrit 32.9 % Mean Corpuscular Volume 86.9 FL Mean Corpuscular Hemoglobin 29.6 PG Mean Corpuscular Hemoglobin Concent 34.0 % Red Cell Distribution Width 16.1 % Platelet Count 440 TH/MM3 Mean Platelet Volume 8.2 FL Neutrophils (%) (Auto) 88.2 % Lymphocytes (%) (Auto) 5.6 % Monocytes (%) (Auto) 5.4 % Eosinophils (%) (Auto) 0.3 % Basophils (%) (Auto) 0.5 % Neutrophils # (Auto) 15.3 TH/MM3 Lymphocytes # (Auto) 1.0 TH/MM3 Monocytes # (Auto) 0.9 TH/MM3 Eosinophils # (Auto) 0.0 TH/MM3 Basophils # (Auto) 0.1 TH/MM3 CBC Comment DIFF FINAL Differential Comment Hematology Comments Activated Partial Thromboplast Time 93.4 SEC Blood Urea Nitrogen 26 MG/DL Creatinine 0.68 MG/DL Random Glucose 85 MG/DL Total Protein 6.2 GM/DL Albumin 2.0 GM/DL Calcium Level 8.1 MG/DL Magnesium Level 2.4 MG/DL Alkaline Phosphatase 134 U/L Aspartate Amino Transf (AST/SGOT) 33 U/L Alanine Aminotransferase (ALT/SGPT) 42 U/L Total Bilirubin 0.9 MG/DL Sodium Level 136 MEQ/L Potassium Level 4.2 MEQ/L Chloride Level 98 MEQ/L Carbon Dioxide Level 29.8 MEQ/L Anion Gap 8 MEQ/L Estimat Glomerular Filtration Rate 81 ML/MIN Urine Color YELLOW Urine Turbidity CLEAR Urine pH 6.0 Urine Specific [place] 1.017 Urine Protein TRACE mg/dL Urine Glucose (UA) NEG mg/dL Urine Ketones NEG mg/dL Urine Occult Blood NEG Urine Nitrite NEG Urine Bilirubin NEG Urine Urobilinogen LESS THAN 2.0 MG/DL Urine Leukocyte Esterase SMALL Urine RBC 1 /hpf Urine WBC 5 /hpf Urine WBC Clumps RARE Urine Squamous Epithelial Cells <1 /hpf Urine Bacteria RARE /hpf Urine Hyaline Casts 1 /lpf Urine Mucus FEW /lpf Microscopic Urinalysis Comment CATH-CULTURE IND Imaging Last Impressions Chest X-Ray 06/18/17 0600 Signed Impressions: Service Date/Time: Sunday, June 18, 2017 04:01 - CONCLUSION: Interval extubation. Stable aeration. Alvin Walls MD Tunnelled Chest Tube Removal 06/13/17 Signed Impressions: Service Date/Time: Tuesday, June 13, 2017 00:00 - CONCLUSION: Uncomplicated chest tube removal. Joselo Jennings MD Upper Extremity Ultrasound 06/07/17 Signed Impressions: Service Date/Time: Wednesday, June 07, 2017 18:21 - CONCLUSION: 1. Limited exam but no deep venous thrombosis is identified bilaterally. Jamie Corrales MD Lower Extremity Ultrasound 06/07/17 Signed Impressions: Service Date/Time: Wednesday, June 07, 2017 17:57 - CONCLUSION: 1. Positive bilateral lower extremity deep venous thrombosis, nonocclusive as above. Jamie Corrales MD Head CT 06/07/17 Signed Impressions: Service Date/Time: Wednesday, June 07, 2017 17:01 - CONCLUSION: 1. No acute intracranial abnormality. 2. Extensive subcutaneous air tracking up from the chest. Luc Cain Jr., MD Cervical Spine CT 06/07/17 Signed Impressions: Service Date/Time: Wednesday, June 07, 2017 17:01 - CONCLUSION: 1. Extensive subcutaneous emphysema. 2. Tiny left apical pneumothorax. 3. Diffuse mild degenerative changes without central canal stenosis. Multilevel neural foraminal narrowing. 4. Prevertebral soft tissues obscured by an endotracheal tube and nasogastric tube. Luc Cain Jr., MD Chest Tube Insertion 06/05/17 Signed Impressions: Service Date/Time: May 09:15 - CONCLUSION: Uncomplicated chest tube placement as above. Maxwell Aldana MD Chest CT 06/05/17 0000 Signed Impressions: Service Date/Time: May 08:47 - CONCLUSION: 1. Moderate left-sided hemothorax with associated left lower lobe consolidation which may reflect a combination of compressive atelectasis, aspiration, and potentially lung infarction given recent pulmonary artery embolization. 2. Trace right apical pneumothorax with large bore chest tube in the major fissure and smallbore chest tube in the soft tissues. Significant subcutaneous emphysema extending to the cervicothoracic junction bilaterally. 3. Airspace consolidation in the right lower lobe posteriorly may reflect aspiration. Maxwell Aldana MD Embolization 06/03/17 0000 Signed Impressions: Service Date/Time: Saturday, June 03, 2017 00:00 - CONCLUSION: Left pulmonary artery rupture with successful coil embolization of a lower lobe branch vessel as above. Joselo Jennings MD Abdomen X-Ray 06/03/17 0000 Signed Impressions: Service Date/Time: Saturday, June 03, 2017 18:04 - CONCLUSION: Tip of the NG tube appears to be coiled in the stomach. Savana Valdovinos MD Assessment and Plan Problem List: (1) Shock, postoperative ICD Codes: T81.10XA - Postprocedural shock unspecified, initial encounter Status: Resolved Plan: Extubated. WBC trending down. Steroids given yesterday. Afebrile Moving extremities, pupils reactive Chest tube d/c today Payne d/c today Recommendations: - Avoid electrolytes imbalance - Cont rate control for afib - Start Coumadin (H&H stable) - Appreciate ID recs. Started on IV Linezolid - Out o bed to chair - PT/OT (2) Pulmonary arterial thrombosis ICD Codes: I26.99 - Other pulmonary embolism without acute cor pulmonale Status: Acute (3) CAD (coronary artery disease) ICD Codes: I25.10 - Atherosclerotic heart disease of [place] coronary artery without angina pectoris (4) Aortic stenosis ICD Codes: I35.0 - Nonrheumatic aortic (valve) stenosis Brad Page MD Jun 19, 2017 09:11
--- NOTE | 2017-06-19 09:12 | RADRPT ---
EXAM DATE/TIME: 06/19/2017 08:28 [facility] COMPARISON: CHEST SINGLE AP, June 18, 2017, 4:01. CHEST SINGLE AP, June 19, 2017, 4:07. INDICATIONS : Status post right chest tube removal. MEDICAL HISTORY : Hypertension. Carcinoma, colon. Cardiovascular disease SURGICAL HISTORY : Heart cath. ENCOUNTER: Subsequent ACUITY: 2 weeks PAIN SCORE: 0/10 LOCATION: Bilateral chest FINDINGS: A single view of the chest demonstrates no evidence of pneumothorax. There continue to be infiltrates in both lung bases. The parenchymal changes in the right lung base are mildly increased compared to the prior exam. Infiltrate in the left lung base is stable. The heart size is stable. There continues to be some pulmonary venous congestion. There is a pacemaker overlying the left chest. CONCLUSION: 1. No evidence of pneumothorax. 2. Bibasilar infiltrates. Aleksey Au MD on June 19, 2017 at 9:09 Board Certified Radiologist. This report was verified electronically.
[2017-06-19] MEDS: RESP: BUDESONIDE 0.5 MG/2 ML NEB NEB SCH ×2 (09:22→20:57)
[2017-06-19 11:51] LABS: PROTHROMBIN TIME - PATIENT 11.6 SEC (9.8-11.6)
[2017-06-19 11:53] LABS: APTT (PATIENT) 39.7 SEC (24.3-30.1)
[2017-06-19] MEDS: WARFARIN SOD 3 MG TAB PO SCH (16:39)
[2017-06-19 18:55] LABS: APTT (PATIENT) 52.8 SEC (24.3-30.1)
[2017-06-19] MEDS: LINEZOLID 600 MG TAB PO SCH (20:49)
[2017-06-20] VITALS (15 sets, daily range): BP systolic 123–146; BP diastolic 54–67; PULSE 68–78; RESP 15–18; TEMP 97.5–98.6; O2SAT 92–99
[2017-06-20 02:22] LABS: APTT (PATIENT) 60.6 SEC (24.3-30.1); INTERNATIONAL NORMALIZED RATIO 1.1 RATIO; PROTHROMBIN TIME - PATIENT 12.7 SEC (9.8-11.6)
[2017-06-20] MEDS: RESP: ALBUTEROL 2.5 MG/IPRATROPIUM 0.5 MG NEB (SCH) NEB ×4 (05:02→21:56)
[2017-06-20] MEDS: METOPROLOL TARTRATE 25 MG TAB PO SCH ×3 (06:00→21:08)
[2017-06-20] MEDS: DILTIAZEM HCL 60 MG TAB PO SCH ×4 (06:00→18:44)
[2017-06-20] MEDS: LEVOTHYROXINE SODIUM 50 MCG TAB PO SCH (06:00)
[2017-06-20] MEDS: HEPARIN 25,000 UNITS-D5W 250 ML - PREMIX IV SCH (06:46)
[2017-06-20] MEDS: INSULIN ASPART SUPPLEMENTAL SCALE SQ SCH ×2 (08:00→20:00)
[2017-06-20] MEDS: CHLORHEXIDINE 0.12% (ORAL KIT) 15 ML CUP MT SCH ×2 (08:00→20:00)
[2017-06-20] MEDS: LINEZOLID 600 MG TAB PO SCH ×2 (09:00→21:08)
[2017-06-20] MEDS: ELTROMBOPAG 50 MG TAB PO SCH (10:00)
--- NOTE | 2017-06-20 10:02 | RADRPT ---
EXAM DATE/TIME: 06/20/2017 09:07 [facility] COMPARISON: CHEST SINGLE AP, June 19, 2017, 8:28. INDICATIONS : Cough. MEDICAL HISTORY : Hypertension. Carcinoma, colon. Cardiovascular disease SURGICAL HISTORY : Heart cath. ENCOUNTER: Subsequent ACUITY: 2 weeks PAIN SCORE: 0/10 LOCATION: Bilateral chest FINDINGS: Small bilateral pleural effusions are stable. The heart is unchanged. The lungs are also stable in appearance compared to the previous examination. Left subclavian dual-lead pacemaker has its tips in the right atrium and right ventricle. No pneumothorax is noted. CONCLUSION: 1. No significant change in the appearance of the lungs compared to the previous examination. Tulio Velazquez MD on June 20, 2017 at 9:55 Board Certified Radiologist. This report was verified electronically.
[2017-06-20] MEDS: PANTOPRAZOLE SODIUM 40 MG VIAL IV PUSH SCH ×2 (10:05→21:10)
[2017-06-20] MEDS: DOCUSATE SODIUM 100 MG/10 ML UDC PO SCH ×2 (10:06→21:07)
[2017-06-20] MEDS: NYSTATIN SUSP 500,000 U/5 ML CUP SWISH-SWAL SCH ×4 (10:06→21:08)
[2017-06-20] MEDS: LOSARTAN 50 MG TAB PO SCH (10:06)
[2017-06-20] MEDS: POTASSIUM CHLORIDE 25 MEQ EFFERVESCENT TAB PO SCH ×2 (10:07→21:08)
--- NOTE | 2017-06-20 10:08 | HHI.CCPN ---
Subjective Remarks/Hospital Course I was emergently called to parking lot laborer by Dr. Corrales. Ms. Mahoney who is 89 yo female with history of severe aortic stenosis was undergoing left and right heart catheter for TAVR evaluation. With right heart catheterization patient developed acute massive hemoptysis with shock secondary to acute rupture of pulmonary artery. Patient was intubated by Dr. Potter and ETT was advance to Right lung for selective right lung ventilation due to massive hemorrhage from Left lung. On my arrival to parking lot laborer, patient was rapidly dropping blood pressure. Dopamine was already started. I ordered Shantanu-Synephrine, at 300 mcg/ m in an attempt to increase MAP and also increase the pulmonary vasoconstriction. Levophed was also added to maintain blood pressure and rapidly titrated up. Emergency release blood initially 3 units was ordered stat along with 2 units of FFP, 1 unit of platelet. I also emergently contacted Dr. Vásquez was in the office. (Dr. Bedoya the on-call CT surgeon was operating). While on Levophed Shantanu-Synephrine and dopamine, patient developed coarse V. fib/V. tach, received brief CPR, and was DC cardioverted 1 with return of spontaneous circulation and sinus rhythm. I discussed with Dr. Corrales and anesthesiologist, I also contacted Dr. Josue from invasive radiology.Dr. Josue immediately arrived to the parking lot laborer. Dr. Abdelrahman francis performed PARVIN which showed vigorous LV contraction but cavity was empty. Received Continuous massive fluid resuscitation with multiple crystalloid boluses, bicarbonate and calcium. Blood arrived and initially 3 units of PRBC, 2 units of 1 unit of platelets was given with calcium total 3 g given after blood transfusion. Because of persistent hypotension, additional 2 units of PRBC was given. While I resuscitated the patient, Dr. Corrales and Dr. Jennings performed right heart cath, identified bleeding of a small branch in the left pulmonary artery. They put put in 6 coils in the lower left lower pulmonary artery followed with Gelfoam closing the perforation. 06/04: Emergency chest 2 yesterday for right pneumothorax with hypotension and hypoxia. Remains intubated sedated and on Levophed. FiO2 remains at 100%, Sat improving to 94-95 %. UO adequate overnight. 2-D echo on my review normal LV and RV function, no PFO on bubble study 06/05: Patient is in atrial fibrillation currently on Cardene infusion for blood pressure control. Chest x-ray shows percutaneous emphysema and small apical pneumothorax. Remains on 80% FiO2. I discussed with interventional radiology. We will attempt CT-guided repositioning of the pigtail catheter and possibly upgrading to a larger tube. Urine output adequate 750 mL in 24 hours 06/06: Currently remains in A. fib with rate controlled, hypertensive on Cardizem drip. Oxygen saturation has improved FiO2 now to 40% with saturation 97%. Urine output excellent with Lasix 4.5 L in 24 hours. Chest x-ray today shows 2.5 cm bilateral apical pneumothorax, also left side has 1.2 cm lateral pneumothorax 06/07: Intubated, on low dose propofol for ventilator synchrony. FiO2 40% oxygen saturation 99%. Chest x-ray and labs pending urine output 2.7 L. 3 chest tubes with no air leak. If neuro exam not improving off sedation will check CT of the head. Currently on propofol will change management director to Precedex to initiate weaning trials. On weaning doses of inhaled Flolan currently on 30, 000 ng 06/08: Remains intubated, mild sedation with Precedex. Overnight FiO2 increased to 65% for hypoxia. CXR left more than right consolidation of lower lobes. Sputum positive for MRSA on vancomycin. Bilateral lower extremity US studies yesterday showed DVT, initiated on IV heparin. Currently therapeutic on heparin. No evidence of pulmonary hemorrhage. Neuro exam is improving weekly follows commands all 4 extremities 06/09: remains intubated. failed CPAP yesterday. on Cleviprex and precedex. fio2 back to 40%. CXR improved aeration with the exception of known LLL. FC x 4. 06/10: failed SBT again for apnea. but much more awake. denies pain. ROS negative. off cleviprex. new air leak in chest tube. will get chest xray to re- eval. 06/11: Warm, well perfused. Alert, cooperative. Communicates with head nod, hand gestures. Comfortable respiratory pattern and acceptable excursions.Air leaks will seal when off positive pressure ventilation. FiO2 to 0.80 last night briefly; now 0.40. I'll come back later today and see if I can get her extubated. 06/12: Required re-intubation for hypoxemic respiratory failure last evening. She is now warm with well perfused fingers and toes. Low dose levophed not hampering peripheral perfusion. Mild prerenal azotemia. CXR with diffuse infiltrates as before. WBC 32,00, afebrile. Must assume colonized lungs at least. Antibiotic coverage is appropriate. Reculture sputum, urine. Progress to weaning trials daily.Hemodynamics appear excellent, rate a minor problem pretty well controlled. Continue Vanc. Stop pip/roxi, start cefepime. Narrow after cultures. Change CVLs, draw blood cultures. 06/13: Persistent leukocytosis, Tmax 100.2. O2 diffusion acceptable on positive pressure ventilation. Sputum culture pending. Remains warm and well perfused. Continue daily spontaneous breathing trials. 06/14: Bronch and BAL this morning by Dr. Muñoz. Gas exchange remains acceptable. Continue SBTs. 06/15: Looks great on SBTs/CPAP. She would benefit from a temporary tracheostomy. But she will eventually be off and extubated for good. C&S pending from BAL. Continue present abx regimen - discussed with Dr. Segura. 06/16: Awake alert following commands on vent. Currently on Precedex 0.5 g per KG per hour. Still has large amount of ETT secretions, but improving. R pigtail dislodged with turning, no pneumo on repeat CXR 06/17: Awake alert on low dose Precedex. Tolerated CPAP yesterday. Not extubated yesterday due copious bloody secretions. The chest x-ray shows some interval improvement and secretions slightly improved. Will proceed with SBT and possible extubation 06/18: Extubated yesterday tolerating very well. Coughing up sputum, cough seems adequate. Slight increase in WBC to 19.1. Received single dose of Decadron yesterday. Overall doing well communicating, no fever 06/19: WBC count slightly improved 17.9. Otherwise breathing comfortably. Single episode of delirium overnight. Will remove Payne today and also remove right chest tube 06/20: Up in chair, labs pending. CXR showing slight increase in L effusion. Will check bedside US. Objective Vital Signs Date Time Temp Pulse Resp B/P (MAP) Pulse Ox O2 Delivery O2 Flow Rate FiO2 06/20/17 07:00 98.6 71 16 144/66 (92) 99 06/19/17 20:58 Nasal Cannula 2.00 06/17/17 08:30 40 Intake and Output 06/20/17 06/20/17 06/21/17 08:00 16:00 00:00 Intake Total 240 ml Output Total 650 ml Balance -410 ml Result Diagram: 06/19/1735006/19/17350 Objective Remarks GENERAL: Sitting up in chair, on NC. Breathing conformably SKIN: Skin/dry. ENT: Oral cavity is moist NECK: Trachea midline. Supple. CARDIOVASCULAR: Remains in atrial fibrillation, rate well controlled in 80 - 90. Systolic murmur over apex and LSB. RESPIRATORY: Air entry equal bilaterally slightly diminished at the bases. Right chest tube site without drainage GASTROINTESTINAL: Abdomen Soft, no guarding. BS active. MUSCULOSKELETAL: New right IJ CVL. Limbs well perfused. 1+ Pedal edema NEUROLOGICAL: Follows commands. Awake, following commands x 4. RASS -0. A/P Assessment and Plan Assessment: 89yF with severe aortic stenosis, course complicated by Pulmonary Artery rupture during right heart catheterization, traumatic pneumothorax secondary to barotrauma, acute hypoxic respiratory failure, MRSA healthcare associated pneumonia, volume overload. Slowly improving extubated 06/17/17 NEURO: Encephalopathy, metabolic - resolved. - Continue to hold home sertraline. Tylenol PRN - CT of the head and C-spine negative for acute injury RESP: Left lower pulmonary artery rupture with massive hemorrhage Acute hypoxemic respiratory failure MRSA pneumonia Large Left hemothorax s/p IR chest tube placement, residual L pneumo after evacuation Bilateral apical pneumothorax Bilateral lower extremity DVT Bilateral effusion L>R - s/p coil and Gelfoam closure of Left lower pulmonary artery (peripheral small branch) by Rhoda Corrales and Michaela (see resuscitation note on 06/03/17) - Extubated 06/16/17, tolerating well. (Required re-intubation 06/02 for hypoxemia) - Chest x-ray LLL pneumonia vs lung infarct. Sputum with MRSA. on Zyvox, Levaquin. CXR 06/20/17 slight increase in L effusion - s/p chest tube x2 for right pneumothorax on 06/03. New apical chest tube placed 06/06/17 - IR, placed 24 F Left chest tube 06/05 with drainage of 2 L hemothorax, residual pneumothorax present, now resolved - CXR 06/07, resolution of right improving subcutaneous emphysema. Small residual left apical pneumo - s/p Bronchoscopy with removal of blood predominantly from L lung, s/p repeat bronch 06/06, 06/15 - DuoNeb q 6hours and PRN. INH Budesonide, Single dose of Decadron 6 mg IV x1 - Venous duplex -bilateral lower extremity DVT. IV heparin started 06/07/17 therapeutic. Coumadin started 06/19 - Removed R chest tube 06/19 CV/Heme: Hemorrhagic shock-resolved Bilateral lower extremity DVT Anemia requiring transfusion Severe Aortic Stenosis Atrial fibrillation with RVR Possible history of ITP - IV heparin started 06/07/17 for bilateral lower extremity DVT and atrial fibrillation, on coumadin since 06/19 - Continue home Cardizem CD 120 mg daily. - Cleviprex, when necessary hydralazine (well beta blocked) to keep systolic blood pressure less than 150 - Continue IV Lasix, 20 mg IV q12. Home metoprolol at 25 mg by mouth every 8 hours. Home dose of digoxin - On Multaq at home. Defer to Dr. Corrales - Received 6 units of emergency release blood, 2 units of FFP and one of platelets 06/03/17. Multiple crystalloid boluses were given, PARVIN normal LV contractility, volume depletion - 2D Echo 06/04 RV LV function look normal, no PFO - Promacta for ITP - hydralazine 50mg po q8hr and losartan 100mg daily (06/09). now off cleviprex. GI: - Speech therapy cleared for heart healthy diet. Having regular BMs : - Monitor renal function closely. Payne catheter. Urine output adequate - IV Lasix 20 md q12 ID: MRSA pneumonia - Continue PO Levaquin and Zyvox. WBC stable. Dr. Segura following PRN - BAL culture MRSA. - Reculture sputum, blood, urine ENDO: Hypokalemia Hypomagnesemia - Replace electrolytes per protocol PROPH: - DCd SCDs due to DVT. IV Protonix. IV heparin started 06/07 LINES: - Left femoral cordis and central line D/c'd 06/04. New LIJ central line placed 06/04 -> out 06/12 - DC Payne and R chest tube removed 06/19/17 - New Left IJ CVL 06/12-Will DCd 06/18 Overall impression: Required re-intubation for diffusion problem 06/11, extubated again 06/17 tolerating well. Now doing well. Evaluate for Rehab placement. Check US of bilateral effusions level 2 Tanika Esquivel MD Jun 20, 2017 10:08
[2017-06-20] MEDS: FUROSEMIDE 20 MG/2 ML VIAL IV PUSH SCH ×2 (10:12→21:14)
[2017-06-20] MEDS: DIGOXIN 0.125 MG TAB PO SCH (10:12)
[2017-06-20] MEDS: LEVOFLOXACIN 500 MG TAB PO SCH (10:12)
--- NOTE | 2017-06-20 10:27 | HHI.PR ---
Addendum to Inpatient Note Addendum Reason: Additional Documentation Additional Information d/w clinically improving on Levaquin and Zyvox oral. Recommend continuing for another 7-10 days based on clinical response. Recommend repeat CXR periodically and as clinically necessary. Follow CBC jimbo platelets and bicarb while on Zyvox. Leucocytosis: patient received steroids. Will sign off please call back if any change in clinical condition or questions. Dolores Segura MD Jun 20, 2017 10:27
[2017-06-20] MEDS: RESP: BUDESONIDE 0.5 MG/2 ML NEB NEB SCH ×2 (11:22→21:56)
[2017-06-20 11:24] LABS: AUTOMATED NEUTROPHIL # 8.2 TH/MM3 (1.8-7.7); BASOPHIL # 0.1 TH/MM3 (0-0.2); BASOPHIL % 0.8 % (0.0-2.0); EOSINOPHIL % 0.4 % (0.0-4.0); HEMATOCRIT 34.5 % (35.0-46.0); HEMO FLAGS DIFF FINAL; LYMPH % 6.3 % (9.0-44.0); LYMPHOCYTE # 0.6 TH/MM3 (1.0-4.8); MEAN CELL VOLUME 88.5 FL (80.0-100.0); MEAN CORPUSCULAR HEMOGLOBIN 29.8 PG (27.0-34.0); MEAN CORPUSCULAR HGB CONC 33.6 % (32.0-36.0); MONO % 8.1 % (0.0-8.0); NEUT % 84.4 % (16.0-70.0); PLATELET COUNT 463 TH/MM3 (150-450); RED BLOOD COUNT 3.89 MIL/MM3 (4.00-5.30); RED CELL DISTRIBUTION WIDTH 15.6 % (11.6-17.2); WHITE BLOOD COUNT 9.7 TH/MM3 (4.0-11.0)
[2017-06-20 11:47] LABS: ALT (GPT) 46 U/L (10-53); ANION GAP 8 MEQ/L (5-15); AST (GOT) 37 U/L (15-37); BICARBONATE 33.3 MEQ/L (21.0-32.0); BLOOD UREA NITROGEN 21 MG/DL (7-18); CHLORIDE 96 MEQ/L (98-107); GLOMERULAR FILTRATION RATE 73 ML/MIN (>89); MAGNESIUM 2.3 MG/DL (1.5-2.5); POTASSIUM 4.1 MEQ/L (3.5-5.1); SODIUM (NA) 137 MEQ/L (136-145)
[2017-06-20 11:49] LABS: ALKALINE PHOSPHATASE 146 U/L (45-117); TOTAL BILIRUBIN ADULT 0.7 MG/DL (0.2-1.0)
--- NOTE | 2017-06-20 13:12 | PD.CARD.PN ---
Subjective Subjective Remarks Extubated No overnight events Moving all extremities afebrile Objective Medications Current Medications Medications (Trade) Dose Ordered Sig/Padmini Route Start Time Stop Time Status Last Admin (Peridex 0.12% Liq) 15 ml BID@08,20 MT 06/03/17 20:00 06/17/17 08:00 (Duoneb Neb) 1 ampule Q2HR NEB PRN NEB 06/03/17 19:00 06/15/17 19:56 (Protonix Inj) 40 mg Q12H IV PUSH 06/03/17 20:00 06/20/17 10:05 Potassium Chloride 100 ml @ 50 mls/hr Q2H PRN IV 06/03/17 19:15 06/09/17 08:04 Potassium Chloride 100 ml @ 50 mls/hr Q2H PRN IV 06/03/17 19:15 (K-Lyte Cl Eff) 50 meq UNSCH PRN PO 06/03/17 19:15 Potassium Chloride 100 ml @ 25 mls/hr UNSCH PRN IV 06/03/17 19:15 06/06/17 18:46 Potassium Chloride 100 ml @ 50 mls/hr Q2H PRN IV 06/03/17 19:15 06/13/17 08:23 Magnesium Sulfate 4 gm/Sodium Chloride 100 ml @ 50 mls/hr UNSCH PRN IV 06/03/17 19:15 (Mag-Ox) 800 mg UNSCH PRN PO 06/03/17 19:15 Magnesium Sulfate 2 gm/Sodium Chloride 100 ml @ 50 mls/hr UNSCH PRN IV 06/03/17 19:15 06/04/17 16:45 (K-Phos) 2,000 mg Q4H PRN PO 06/03/17 19:15 Sodium Phosphate 30 mmol/Sodium Chloride 250 ml @ 42 mls/hr UNSCH PRN IV 06/03/17 19:15 (K-Phos) 2,000 mg UNSCH PRN PO/TUBE 06/03/17 19:15 Potassium Phosphate 30 mmol/ Sodium Chloride 260 ml @ 42 mls/hr UNSCH PRN IV 06/03/17 19:15 06/13/17 12:03 (D50w (Vial) Inj) 50 ml UNSCH PRN IV PUSH 06/04/17 12:15 (Glucagon Inj) 1 mg UNSCH PRN OTHER 06/04/17 12:15 (Lopressor Inj) 1.25 mg Q6H PRN IV PUSH 06/04/17 19:15 06/06/17 20:29 (Colace Liq) 100 mg Q12HR PO 06/05/17 14:00 06/20/17 10:06 (K-Lyte Cl Eff) 25 meq Q12HR PO 06/05/17 14:00 06/20/17 10:07 (Lanoxin) 0.125 mg DAILY PO 06/06/17 09:00 06/20/17 10:12 (Lopressor) 25 mg Q8HR PO 06/07/17 14:00 06/20/17 06:00 (Cozaar) 50 mg DAILY PO 06/07/17 09:00 06/20/17 10:06 (Apresoline Inj) 20 mg Q4H PRN IV PUSH 06/07/17 08:00 06/14/17 01:21 (Synthroid) 50 mcg DAILY@0600 PO 06/07/17 08:00 06/20/17 06:00 (Promacta) 25 mg DAILY@1000 PO 06/08/17 10:00 06/20/17 10:00 (Heparin Inj) 5,000 units UNSCH PRN IV PUSH 06/07/17 22:00 (Heparin Inj) 2,500 units UNSCH PRN IV PUSH 06/07/17 22:00 (Pill Splitter) 1 ea UNSCH PRN OTHER 06/07/17 22:15 (NovoLOG SUPPLEMENTAL SCALE) 1 BID@0800,2000 SQ 06/08/17 20:00 06/15/17 08:43 (Mycostatin Liq) 5 ml QID SWISH-SWAL 06/12/17 13:00 06/20/17 10:06 (Cardizem) 60 mg Q6HR PO 06/13/17 12:00 06/20/17 06:00 Heparin Sodium/ Dextrose 250 ml @ 11 mls/hr TITRATE IV 06/16/17 07:30 06/20/17 06:46 (Pulmicort Respule Neb) 0.5 mg Q12HR NEB NEB 06/16/17 11:15 06/20/17 11:22 (Duoneb Neb) 1 ampule Q6HR NEB NEB 06/17/17 10:00 06/20/17 11:22 (Tylenol 650 Mg/ 20 ml Liq) 650 mg Q6H PRN PO 06/18/17 06:30 (Lasix Inj) 20 mg Q12H IV PUSH 06/19/17 09:00 06/20/17 10:12 (Levaquin) 500 mg DAILY PO 06/19/17 09:00 06/20/17 10:12 (Coumadin) 3 mg DAILY@16 PO 06/19/17 16:00 06/19/17 16:39 (Zyvox) 600 mg Q12HR PO 06/19/17 21:00 06/19/17 20:49 Pharmacy Profile Note 0 ml @ 0 mls/hr UNSCH OTHER 06/20/17 10:00 Vital Signs / I&O Vital Signs Date Time Temp Pulse Resp B/P (MAP) Pulse Ox O2 Delivery O2 Flow Rate FiO2 06/20/17 11:25 98.1 69 15 136/67 (90) 99 06/20/17 11:25 68 06/20/17 09:50 99 Nasal Cannula 1.00 06/20/17 07:00 98.6 71 16 144/66 (92) 99 06/20/17 07:00 68 06/20/17 03:00 98.2 69 16 123/54 (77) 99 06/20/17 03:00 70 06/19/17 23:00 70 06/19/17 23:00 98.2 69 16 123/54 (77) 99 06/19/17 20:58 99 Nasal Cannula 2.00 06/19/17 19:00 69 06/19/17 19:00 97.9 69 18 142/62 (88) 99 06/19/17 15:00 69 06/19/17 15:00 97.9 69 16 135/63 (87) 98 I/O 06/19/17 06/19/17 06/19/17 06/20/17 06/20/17 06/20/17 07:00 15:00 23:00 07:00 15:00 23:00 Intake Total 200 ml 514 ml 240 ml Output Total 850 ml 550 ml 650 ml Balance -650 ml -36 ml -410 ml Intake Oral 200 ml 120 ml 240 ml IV Total 394 ml Output Urine Total 850 ml 550 ml 650 ml Chest Tube Drainage Total 0 ml # Voids 2 # Bowel Movements 1 0 1 Physical Exam GENERAL: Intubated, pupils reactive, Alert, awake, oriented SKIN: Warm and dry. HEAD: Normocephalic. EYES: No scleral icterus. No injection or drainage. NECK: Supple, trachea midline. No JVD or lymphadenopathy. CARDIOVASCULAR: Irr Irr 2/6SEM no gallops, or rubs. RESPIRATORY: Vented. GASTROINTESTINAL: Abdomen soft, non-tender, nondistended. EXTREMITIES: No cyanosis, or +edema. Laboratory Laboratory Tests Test 06/19/17 18:20 06/20/17 01:26 06/20/17 10:58 Activated Partial Thromboplast Time 52.8 SEC 60.6 SEC Prothrombin Time 12.7 SEC Prothromb Time International Ratio 1.1 RATIO White Blood Count 9.7 TH/MM3 Red Blood Count 3.89 MIL/MM3 Hemoglobin 11.6 GM/DL Hematocrit 34.5 % Mean Corpuscular Volume 88.5 FL Mean Corpuscular Hemoglobin 29.8 PG Mean Corpuscular Hemoglobin Concent 33.6 % Red Cell Distribution Width 15.6 % Platelet Count 463 TH/MM3 Mean Platelet Volume 6.8 FL Neutrophils (%) (Auto) 84.4 % Lymphocytes (%) (Auto) 6.3 % Monocytes (%) (Auto) 8.1 % Eosinophils (%) (Auto) 0.4 % Basophils (%) (Auto) 0.8 % Neutrophils # (Auto) 8.2 TH/MM3 Lymphocytes # (Auto) 0.6 TH/MM3 Monocytes # (Auto) 0.8 TH/MM3 Eosinophils # (Auto) 0.0 TH/MM3 Basophils # (Auto) 0.1 TH/MM3 CBC Comment DIFF FINAL Differential Comment Blood Urea Nitrogen 21 MG/DL Creatinine 0.75 MG/DL Random Glucose 108 MG/DL Total Protein 6.5 GM/DL Albumin 2.3 GM/DL Calcium Level 8.7 MG/DL Magnesium Level 2.3 MG/DL Alkaline Phosphatase 146 U/L Aspartate Amino Transf (AST/SGOT) 37 U/L Alanine Aminotransferase (ALT/SGPT) 46 U/L Total Bilirubin 0.7 MG/DL Sodium Level 137 MEQ/L Potassium Level 4.1 MEQ/L Chloride Level 96 MEQ/L Carbon Dioxide Level 33.3 MEQ/L Anion Gap 8 MEQ/L Estimat Glomerular Filtration Rate 73 ML/MIN Imaging Last 24 hours Impressions Chest X-Ray 06/20/17 0000 Signed Impressions: Service Date/Time: Tuesday, June 20, 2017 09:07 - CONCLUSION: 1. No significant change in the appearance of the lungs compared to the previous examination. Tulio Velazquez MD Assessment and Plan Problem List: (1) Shock, postoperative ICD Codes: T81.10XA - Postprocedural shock unspecified, initial encounter Status: Resolved Plan: Extubated. WBC down. Afebrile Moving extremities, pupils reactive Recommendations: - Avoid electrolytes imbalance - Cont rate control for afib - Start Coumadin (H&H stable). Goal INR 2-3 - Appreciate ID recs. Started on IV Linezolid - Out o bed to chair - PT/OT - CM for Rehab - Ok to Tx to step down unit (2) Pulmonary arterial thrombosis ICD Codes: I26.99 - Other pulmonary embolism without acute cor pulmonale Status: Acute (3) CAD (coronary artery disease) ICD Codes: I25.10 - Atherosclerotic heart disease of [place] coronary artery without angina pectoris (4) Aortic stenosis ICD Codes: I35.0 - Nonrheumatic aortic (valve) stenosis Brad Page MD Jun 20, 2017 13:12
[2017-06-20] MEDS: WARFARIN SOD 3 MG TAB PO SCH (14:12)
[2017-06-21] VITALS (28 sets, daily range): BP systolic 106–135; BP diastolic 53–65; PULSE 67–106; RESP 16–18; TEMP 97.6–98.5; O2SAT 92–98
[2017-06-21] MEDS: DILTIAZEM HCL 60 MG TAB PO SCH ×4 (00:08→17:07)
[2017-06-21] MEDS: RESP: ALBUTEROL 2.5 MG/IPRATROPIUM 0.5 MG NEB (SCH) NEB ×4 (03:33→21:16)
[2017-06-21] MEDS: ACETAMINOPHEN 650 MG/20.3 ML UDC PO PRN (04:17)
--- NOTE | 2017-06-21 05:33 | RADRPT ---
EXAM DATE/TIME: 06/21/2017 05:07 [facility] COMPARISON: CHEST SINGLE AP, June 20, 2017, 9:07. INDICATIONS : Shortness of breath, possible pulmonary disease. MEDICAL HISTORY : Hypertension. Carcinoma, colon. Cardiovascular disease. SURGICAL HISTORY : Pacemaker. ENCOUNTER: Subsequent ACUITY: 2 weeks PAIN SCORE: 0/10 LOCATION: Bilateral chest FINDINGS: Single AP view of the chest. Increased bilateral hazy pulmonary parenchymal opacity and pulmonary vas culature indistinctness indicating pulmonary edema. Bilateral pleural effusions unchanged. No evidenc e of pneumothorax. Cardiomediastinal silhouette unchanged. CONCLUSION: Increased bilateral pulmonary opacity suggesting pulmonary edema. No change in bilateral pleural effu sions. Pawan You MD on June 21, 2017 at 5:29 Board Certified Radiologist. This report was verified electronically.
[2017-06-21] MEDS: METOPROLOL TARTRATE 25 MG TAB PO SCH ×3 (06:05→21:19)
[2017-06-21] MEDS: LEVOTHYROXINE SODIUM 50 MCG TAB PO SCH (06:06)
[2017-06-21] MEDS: CHLORHEXIDINE 0.12% (ORAL KIT) 15 ML CUP MT SCH ×2 (08:00→20:00)
[2017-06-21] MEDS: INSULIN ASPART SUPPLEMENTAL SCALE SQ SCH ×2 (08:00→20:00)
[2017-06-21] MEDS: PANTOPRAZOLE SODIUM 40 MG VIAL IV PUSH SCH ×2 (08:00→21:18)
[2017-06-21] MEDS: ELTROMBOPAG 50 MG TAB PO SCH (08:44)
[2017-06-21] MEDS: NYSTATIN SUSP 500,000 U/5 ML CUP SWISH-SWAL SCH ×4 (08:45→22:34)
[2017-06-21] MEDS: FUROSEMIDE 20 MG/2 ML VIAL IV PUSH SCH ×2 (08:45→21:19)
[2017-06-21] MEDS: LOSARTAN 50 MG TAB PO SCH (08:45)
[2017-06-21] MEDS: DOCUSATE SODIUM 100 MG/10 ML UDC PO SCH ×2 (08:45→22:34)
[2017-06-21] MEDS: LINEZOLID 600 MG TAB PO SCH ×2 (08:45→21:19)
[2017-06-21] MEDS: LEVOFLOXACIN 500 MG TAB PO SCH (08:46)
[2017-06-21] MEDS: POTASSIUM CHLORIDE 25 MEQ EFFERVESCENT TAB PO SCH ×2 (08:46→22:35)
[2017-06-21] MEDS: DIGOXIN 0.125 MG TAB PO SCH (08:46)
--- NOTE | 2017-06-21 08:53 | HHI.PR ---
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 Corrales. Ms. Mahoney who is 89 yo female with history of severe aortic stenosis was undergoing left and right heart catheter for TAVR evaluation. With right heart catheterization patient developed acute massive hemoptysis with shock secondary to acute rupture of pulmonary artery. Patient was intubated by Dr. Potter and ETT was advance to Right lung for selective right lung ventilation due to massive hemorrhage from Left lung. On my arrival to slab depiler operator, patient was rapidly dropping blood pressure. Dopamine was already started. I ordered Shantanu-Synephrine, at 300 mcg/ m in an attempt to increase MAP and also increase the pulmonary vasoconstriction. Levophed was also added to maintain blood pressure and rapidly titrated up. Emergency release blood initially 3 units was ordered stat along with 2 units of FFP, 1 unit of platelet. I also emergently contacted Dr. Vásquez was in the office. (Dr. Bedoya the on-call CT surgeon was operating). While on Levophed Shantanu-Synephrine and dopamine, patient developed coarse V. fib/V. tach, received brief CPR, and was DC cardioverted 1 with return of spontaneous circulation and sinus rhythm. I discussed with Dr. Corrales and anesthesiologist, I also contacted Dr. Josue from invasive radiology.Dr. Josue immediately arrived to the slab depiler operator. Dr. Abdelrahman francis performed PARVIN which showed vigorous LV contraction but cavity was empty. Received Continuous massive fluid resuscitation with multiple crystalloid boluses, bicarbonate and calcium. Blood arrived and initially 3 units of PRBC, 2 units of 1 unit of platelets was given with calcium total 3 g given after blood transfusion. Because of persistent hypotension, additional 2 units of PRBC was given. While I resuscitated the patient, Dr. Corrales and Dr. Jennings performed right heart cath, identified bleeding of a small branch in the left pulmonary artery. They put put in 6 coils in the lower left lower pulmonary artery followed with Gelfoam closing the perforation. 06/04: Emergency chest 2 yesterday for right pneumothorax with hypotension and hypoxia. Remains intubated sedated and on Levophed. FiO2 remains at 100%, Sat improving to 94-95 %. UO adequate overnight. 2-D echo on my review normal LV and RV function, no PFO on bubble study 06/05: Patient is in atrial fibrillation currently on Cardene infusion for blood pressure control. Chest x-ray shows percutaneous emphysema and small apical pneumothorax. Remains on 80% FiO2. I discussed with interventional radiology. We will attempt CT-guided repositioning of the pigtail catheter and possibly upgrading to a larger tube. Urine output adequate 750 mL in 24 hours 06/06: Currently remains in A. fib with rate controlled, hypertensive on Cardizem drip. Oxygen saturation has improved FiO2 now to 40% with saturation 97%. Urine output excellent with Lasix 4.5 L in 24 hours. Chest x-ray today shows 2.5 cm bilateral apical pneumothorax, also left side has 1.2 cm lateral pneumothorax 06/07: Intubated, on low dose propofol for ventilator synchrony. FiO2 40% oxygen saturation 99%. Chest x-ray and labs pending urine output 2.7 L. 3 chest tubes with no air leak. If neuro exam not improving off sedation will check CT of the head. Currently on propofol will ticket dispenser changer to Precedex to initiate weaning trials. On weaning doses of inhaled Flolan currently on 30, 000 ng 06/08: Remains intubated, mild sedation with Precedex. Overnight FiO2 increased to 65% for hypoxia. CXR left more than right consolidation of lower lobes. Sputum positive for MRSA on vancomycin. Bilateral lower extremity US studies yesterday showed DVT, initiated on IV heparin. Currently therapeutic on heparin. No evidence of pulmonary hemorrhage. Neuro exam is improving weekly follows commands all 4 extremities 06/09: remains intubated. failed CPAP yesterday. on Cleviprex and precedex. fio2 back to 40%. CXR improved aeration with the exception of known LLL. FC x 4. 06/10: failed SBT again for apnea. but much more awake. denies pain. ROS negative. off cleviprex. new air leak in chest tube. will get chest xray to re- eval. 06/11: Warm, well perfused. Alert, cooperative. Communicates with head nod, hand gestures. Comfortable respiratory pattern and acceptable excursions.Air leaks will seal when off positive pressure ventilation. FiO2 to 0.80 last night briefly; now 0.40. I'll come back later today and see if I can get her extubated. 06/12: Required re-intubation for hypoxemic respiratory failure last evening. She is now warm with well perfused fingers and toes. Low dose levophed not hampering peripheral perfusion. Mild prerenal azotemia. CXR with diffuse infiltrates as before. WBC 32,00, afebrile. Must assume colonized lungs at least. Antibiotic coverage is appropriate. Reculture sputum, urine. Progress to weaning trials daily.Hemodynamics appear excellent, rate a minor problem pretty well controlled. Continue Vanc. Stop pip/roxi, start cefepime. Narrow after cultures. Change CVLs, draw blood cultures. 06/13: Persistent leukocytosis, Tmax 100.2. O2 diffusion acceptable on positive pressure ventilation. Sputum culture pending. Remains warm and well perfused. Continue daily spontaneous breathing trials. 06/14: Bronch and BAL this morning by Dr. Muñoz. Gas exchange remains acceptable. Continue SBTs. 06/15: Looks great on SBTs/CPAP. She would benefit from a temporary tracheostomy. But she will eventually be off and extubated for good. C&S pending from BAL. Continue present abx regimen - discussed with Dr. Segura. 06/16: Awake alert following commands on vent. Currently on Precedex 0.5 g per KG per hour. Still has large amount of ETT secretions, but improving. R pigtail dislodged with turning, no pneumo on repeat CXR 06/17: Awake alert on low dose Precedex. Tolerated CPAP yesterday. Not extubated yesterday due copious bloody secretions. The chest x-ray shows some interval improvement and secretions slightly improved. Will proceed with SBT and possible extubation 06/18: Extubated yesterday tolerating very well. Coughing up sputum, cough seems adequate. Slight increase in WBC to 19.1. Received single dose of Decadron yesterday. Overall doing well communicating, no fever 06/19: WBC count slightly improved 17.9. Otherwise breathing comfortably. Single episode of delirium overnight. Will remove Payne today and also remove right chest tube 06/20: Up in chair, labs pending. CXR showing slight increase in L effusion. Will check bedside US. Hospitalist Notes: 06/21: Stable in her bedroom in sitting position eating her breakfast, no complaint, no nausea, vomit or diarrhea, on contact precautions, vital signs stable as per ID specialist Doctor Imelda recommended to continue Levaquin and Zyvox Oral for 7 to 10 days and follow CXR periodically and as clinically necessary, follow CBC and Platelet count, Bicarbonate while on Zyvox. Objective Vital Signs Date Time Temp Pulse Resp B/P (MAP) Pulse Ox O2 Delivery O2 Flow Rate FiO2 06/21/17 06:00 68 06/21/17 05:08 68 06/21/17 04:00 82 06/21/17 03:36 98 Nasal Cannula 2.00 06/21/17 03:10 69 06/21/17 03:10 97.9 68 18 107/53 (71) 98 06/21/17 02:19 69 06/21/17 01:04 68 06/21/17 00:35 69 06/20/17 23:10 69 06/20/17 23:10 97.5 69 18 134/64 (87) 99 06/20/17 22:00 68 06/20/17 21:00 70 06/20/17 20:00 70 06/20/17 19:30 98.1 74 17 134/63 (86) 98 06/20/17 19:30 70 06/20/17 18:00 71 06/20/17 17:00 74 06/20/17 16:48 92 Nasal Cannula 1.00 06/20/17 16:30 98.4 74 16 146/65 (92) 97 06/20/17 16:00 68 06/20/17 15:00 78 06/20/17 11:25 98.1 69 15 136/67 (90) 99 06/20/17 11:25 68 06/20/17 09:50 99 Nasal Cannula 1.00 I/O 06/20/17 06/20/17 06/20/17 06/21/17 06/21/17 06/21/17 07:00 15:00 23:00 07:00 15:00 23:00 Intake Total 240 ml 1170 ml 870 ml Output Total 650 ml 950 ml 400 ml Balance -410 ml 220 ml 470 ml Intake Oral 240 ml 920 ml 780 ml IV Total 250 ml 90 ml Output Urine Total 650 ml 950 ml 400 ml # Bowel Movements 1 2 Result Diagram: 06/20/17 1058 06/20/17 1058 Imaging Last Impressions Chest X-Ray 06/21/17 0600 Signed Impressions: Service Date/Time: Wednesday, June 21, 2017 05:07 - CONCLUSION: Increased bilateral pulmonary opacity suggesting pulmonary edema. No change in bilateral pleural effusions. Pawan You MD Tunnelled Chest Tube Removal 06/13/17 Signed Impressions: Service Date/Time: Tuesday, June 13, 2017 00:00 - CONCLUSION: Uncomplicated chest tube removal. Joselo Jennings MD Upper Extremity Ultrasound 06/07/17 Signed Impressions: Service Date/Time: Wednesday, June 07, 2017 18:21 - CONCLUSION: 1. Limited exam but no deep venous thrombosis is identified bilaterally. Jamie Corrales MD Lower Extremity Ultrasound 06/07/17 Signed Impressions: Service Date/Time: Wednesday, June 07, 2017 17:57 - CONCLUSION: 1. Positive bilateral lower extremity deep venous thrombosis, nonocclusive as above. Jamie Corrales MD Head CT 06/07/17 Signed Impressions: Service Date/Time: Wednesday, June 07, 2017 17:01 - CONCLUSION: 1. No acute intracranial abnormality. 2. Extensive subcutaneous air tracking up from the chest. Luc Cain Jr., MD Cervical Spine CT 06/07/17 Signed Impressions: Service Date/Time: Wednesday, June 07, 2017 17:01 - CONCLUSION: 1. Extensive subcutaneous emphysema. 2. Tiny left apical pneumothorax. 3. Diffuse mild degenerative changes without central canal stenosis. Multilevel neural foraminal narrowing. 4. Prevertebral soft tissues obscured by an endotracheal tube and nasogastric tube. Luc Cain Jr., MD Chest Tube Insertion 06/05/17 Signed Impressions: Service Date/Time: May 09:15 - CONCLUSION: Uncomplicated chest tube placement as above. Maxwell Aldana MD Chest CT 06/05/17 Signed Impressions: Service Date/Time: May 08:47 - CONCLUSION: 1. Moderate left-sided hemothorax with associated left lower lobe consolidation which may reflect a combination of compressive atelectasis, aspiration, and potentially lung infarction given recent pulmonary artery embolization. 2. Trace right apical pneumothorax with large bore chest tube in the major fissure and smallbore chest tube in the soft tissues. Significant subcutaneous emphysema extending to the cervicothoracic junction bilaterally. 3. Airspace consolidation in the right lower lobe posteriorly may reflect aspiration. Maxwell Aldana MD Embolization 10/17/17 0000 Signed Impressions: Service Date/Time: Saturday, June 03, 2017 00:00 - CONCLUSION: Left pulmonary artery rupture with successful coil embolization of a lower lobe branch vessel as above. Joselo Jennings MD Abdomen X-Ray 06/03/17 0000 Signed Impressions: Service Date/Time: Saturday, June 03, 2017 18:04 - CONCLUSION: Tip of the NG tube appears to be coiled in the stomach. Savana Valdovinos MD Other Results Laboratory Tests Test 06/03/17 18:10 06/04/17 04:15 06/05/17 10:15 06/07/17 06:48 Acanthocytes 1+ Nasal Screen MRSA (PCR) MRSA NOT DETECTED Fibrinogen 374 mg/dL Thyroid Stimulating Hormone 3rd Gen 2.470 uIU/ML Test 06/08/17 04:30 06/09/17 04:30 06/11/17 20:14 06/12/17 04:20 Myelocytes 1 % Ovalocytes 1+ Vancomycin Level Trough 25.5 MCG/ML Eosinophils % 1 % Metamyelocytes 1 % Digoxin Level 1.3 NG/ML Test 06/12/17 08:20 06/13/17 05:20 06/13/17 08:36 06/13/17 22:00 Urine Renal Epithelial Cells 1 /hpf Urine Yeast with Hyphae MANY Random Vancomycin Level 20.8 COMMENT Lactic Acid Level 1.3 mmol/L Direct Bilirubin 0.6 MG/DL Indirect Bilirubin 0.7 MG/DL C-Reactive Protein High Sensitivity 74.7 mg/L Lipase 183 U/L Urine Yeast (Budding) MANY Test 06/14/17 04:13 06/16/17 04:00 06/16/17 08:57 06/17/17 05:10 Differential Total Cells Counted 100 Neutrophils % (Manual) 90 % Band Neutrophils % 5 % Lymphocytes % 2 % Monocytes % 3 % Neutrophils # (Manual) 30.5 TH/MM3 Platelet Estimate NORMAL Platelet Morphology Comment NORMAL Red Cell Morphology Comment NORMAL B-Type Natriuretic Peptide 369 PG/ML Blood Gas Puncture Site RT RADIAL Blood Gas Patient Temperature 98.6 Blood Gas HCO3 27 mmol/L Blood Gas Base Excess 3.6 mmol/L Blood Gas Oxygen Saturation 97 % Arterial Blood pH 7.48 Arterial Blood Partial Pressure CO2 37 mmHg Arterial Blood Partial Pressure O2 137 mmHg Arterial Blood Oxygen Content 17.2 Vol % Arterial Blood Carboxyhemoglobin 1.3 % Arterial Blood Methemoglobin 1.2 % Blood Gas Hemoglobin 12.5 G/DL Oxygen Delivery Device VENTILATOR Blood Gas Ventilator Setting CPAPPEEP5/PS5 Blood Gas Inspired Oxygen 40 % Protein Corrected Calcium 8.5 MG/DL Blood Urea Nitrogen 31 MG/DL Creatinine 0.66 MG/DL Random Glucose 127 MG/DL Total Protein 5.1 GM/DL Albumin 1.5 GM/DL Calcium Level 7.4 MG/DL Phosphorus Level 3.1 MG/DL Magnesium Level 2.2 MG/DL Alkaline Phosphatase 154 U/L Aspartate Amino Transf (AST/SGOT) 35 U/L Alanine Aminotransferase (ALT/SGPT) 41 U/L Total Bilirubin 0.7 MG/DL Sodium Level 134 MEQ/L Potassium Level 4.1 MEQ/L Chloride Level 98 MEQ/L Carbon Dioxide Level 28.5 MEQ/L Test 06/19/17 03:51 06/19/17 06:45 06/20/17 01:26 06/20/17 10:58 Hematology Comments Urine Color YELLOW Urine Turbidity CLEAR Urine pH 6.0 Urine Specific [place] 1.017 Urine Protein TRACE mg/dL Urine Glucose (UA) NEG mg/dL Urine Ketones NEG mg/dL Urine Occult Blood NEG Urine Nitrite NEG Urine Bilirubin NEG Urine Urobilinogen LESS THAN 2.0 MG/DL Urine Leukocyte Esterase SMALL Urine RBC 1 /hpf Urine WBC 5 /hpf Urine WBC Clumps RARE Urine Squamous Epithelial Cells <1 /hpf Urine Bacteria RARE /hpf Urine Hyaline Casts 1 /lpf Urine Mucus FEW /lpf Microscopic Urinalysis Comment CATH-CULTURE IND Prothrombin Time 12.7 SEC Prothromb Time International Ratio 1.1 RATIO Activated Partial Thromboplast Time 60.6 SEC White Blood Count 9.7 TH/MM3 Red Blood Count 3.89 MIL/MM3 Hemoglobin 11.6 GM/DL Hematocrit 34.5 % Mean Corpuscular Volume 88.5 FL Mean Corpuscular Hemoglobin 29.8 PG Mean Corpuscular Hemoglobin Concent 33.6 % Red Cell Distribution Width 15.6 % Platelet Count 463 TH/MM3 Mean Platelet Volume 6.8 FL Neutrophils (%) (Auto) 84.4 % Lymphocytes (%) (Auto) 6.3 % Monocytes (%) (Auto) 8.1 % Eosinophils (%) (Auto) 0.4 % Basophils (%) (Auto) 0.8 % Neutrophils # (Auto) 8.2 TH/MM3 Lymphocytes # (Auto) 0.6 TH/MM3 Monocytes # (Auto) 0.8 TH/MM3 Eosinophils # (Auto) 0.0 TH/MM3 Basophils # (Auto) 0.1 TH/MM3 CBC Comment DIFF FINAL Differential Comment Blood Urea Nitrogen 21 MG/DL Creatinine 0.75 MG/DL Random Glucose 108 MG/DL Total Protein 6.5 GM/DL Albumin 2.3 GM/DL Calcium Level 8.7 MG/DL Magnesium Level 2.3 MG/DL Alkaline Phosphatase 146 U/L Aspartate Amino Transf (AST/SGOT) 37 U/L Alanine Aminotransferase (ALT/SGPT) 46 U/L Total Bilirubin 0.7 MG/DL Sodium Level 137 MEQ/L Potassium Level 4.1 MEQ/L Chloride Level 96 MEQ/L Carbon Dioxide Level 33.3 MEQ/L Anion Gap 8 MEQ/L Estimat Glomerular Filtration Rate 73 ML/MIN Objective Remarks GENERAL: No acute distress. SKIN: Skin/dry. ENT: Oral cavity is moist NECK: Trachea midline. Supple. CARDIOVASCULAR: Remains in atrial fibrillation, rate well controlled in 80 - 90. Systolic murmur over apex and LSB. RESPIRATORY: Air entry equal bilaterally slightly diminished at the bases. Right chest tube site without drainage GASTROINTESTINAL: Abdomen Soft, no guarding. BS active. MUSCULOSKELETAL: New right IJ CVL. Limbs well perfused. 1+ Pedal edema NEUROLOGICAL: Follows commands. Awake, following commands x 4. RASS -0. Medications and IVs Current Medications Medications (Trade) Dose Ordered Sig/Padmini Route Start Time Stop Time Status Last Admin (Peridex 0.12% Liq) 15 ml BID@08,20 MT 06/03/17 20:00 06/17/17 08:00 (Duoneb Neb) 1 ampule Q2HR NEB PRN NEB 06/03/17 19:00 06/15/17 19:56 (Protonix Inj) 40 mg Q12H IV PUSH 06/03/17 20:00 06/20/17 21:10 Potassium Chloride 100 ml @ 50 mls/hr Q2H PRN IV 06/03/17 19:15 06/09/17 08:04 Potassium Chloride 100 ml @ 50 mls/hr Q2H PRN IV 06/03/17 19:15 (K-Lyte Cl Eff) 50 meq UNSCH PRN PO 06/03/17 19:15 Potassium Chloride 100 ml @ 25 mls/hr UNSCH PRN IV 06/03/17 19:15 06/06/17 18:46 Potassium Chloride 100 ml @ 50 mls/hr Q2H PRN IV 06/03/17 19:15 06/13/17 08:23 Magnesium Sulfate 4 gm/Sodium Chloride 100 ml @ 50 mls/hr UNSCH PRN IV 06/03/17 19:15 (Mag-Ox) 800 mg UNSCH PRN PO 06/03/17 19:15 Magnesium Sulfate 2 gm/Sodium Chloride 100 ml @ 50 mls/hr UNSCH PRN IV 06/03/17 19:15 06/04/17 16:45 (K-Phos) 2,000 mg Q4H PRN PO 06/03/17 19:15 Sodium Phosphate 30 mmol/Sodium Chloride 250 ml @ 42 mls/hr UNSCH PRN IV 06/03/17 19:15 (K-Phos) 2,000 mg UNSCH PRN PO/TUBE 06/03/17 19:15 Potassium Phosphate 30 mmol/ Sodium Chloride 260 ml @ 42 mls/hr UNSCH PRN IV 06/03/17 19:15 06/13/17 12:03 (D50w (Vial) Inj) 50 ml UNSCH PRN IV PUSH 06/04/17 12:15 (Glucagon Inj) 1 mg UNSCH PRN OTHER 06/04/17 12:15 (Lopressor Inj) 1.25 mg Q6H PRN IV PUSH 06/04/17 19:15 06/06/17 20:29 (Colace Liq) 100 mg Q12HR PO 06/05/17 14:00 06/20/17 21:07 (K-Lyte Cl Eff) 25 meq Q12HR PO 06/05/17 14:00 06/20/17 21:08 (Lanoxin) 0.125 mg DAILY PO 06/06/17 09:00 06/20/17 10:12 (Lopressor) 25 mg Q8HR PO 06/07/17 14:00 06/21/17 06:05 (Cozaar) 50 mg DAILY PO 06/07/17 09:00 06/20/17 10:06 (Apresoline Inj) 20 mg Q4H PRN IV PUSH 06/07/17 08:00 06/14/17 01:21 (Synthroid) 50 mcg DAILY@0600 PO 06/07/17 08:00 06/21/17 06:06 (Promacta) 25 mg DAILY@1000 PO 06/08/17 10:00 06/20/17 10:00 (Heparin Inj) 5,000 units UNSCH PRN IV PUSH 06/07/17 22:00 (Heparin Inj) 2,500 units UNSCH PRN IV PUSH 06/07/17 22:00 (Pill Splitter) 1 ea UNSCH PRN OTHER 06/07/17 22:15 (NovoLOG SUPPLEMENTAL SCALE) 1 BID@0800,2000 SQ 06/08/17 20:00 06/15/17 08:43 (Mycostatin Liq) 5 ml QID SWISH-SWAL 06/12/17 13:00 06/20/17 21:08 (Cardizem) 60 mg Q6HR PO 06/13/17 12:00 06/21/17 06:05 Heparin Sodium/ Dextrose 250 ml @ 11 mls/hr TITRATE IV 06/16/17 07:30 06/20/17 06:46 (Pulmicort Respule Neb) 0.5 mg Q12HR NEB NEB 06/16/17 11:15 06/20/17 21:56 (Tylenol 650 Mg/ 20 ml Liq) 650 mg Q6H PRN PO 06/18/17 06:30 06/21/17 04:17 (Lasix Inj) 20 mg Q12H IV PUSH 06/19/17 09:00 06/20/17 21:14 (Levaquin) 500 mg DAILY PO 06/19/17 09:00 06/20/17 10:12 (Coumadin) 3 mg DAILY@16 PO 06/19/17 16:00 06/20/17 14:12 (Zyvox) 600 mg Q12HR PO 06/19/17 21:00 06/20/17 21:08 Pharmacy Profile Note 0 ml @ 0 mls/hr UNSCH OTHER 06/20/17 10:00 (Duoneb Neb) 1 ampule Q6HR NEB NEB 06/20/17 16:00 06/21/17 03:33 A/P Assessment and Plan This is a pleasant 89 y/o Female with Severe Aortic Stenosis, with complicated Pulmonary Artery Rupture while on right heart catheterization, traumatic pneumothorax secondary to Barotrauma, acute Hypoxic respiratory failure, MRSA Healthcare associated Pneumonia, volume overload. extubated 06/17/17. 1. Metabolic Encephalopathy Resolved, continue on hold Sertraline, has Tylenol PRN CT of the head and C-Spine negative for acute injury 2. Left Lower Pulmonary artery rupture with massive Hemorrhage/Acute Hypoxemic respiratory failure/MRSA Pneumonia Large Left Hemothorax status post IR chest tube placement, residual Left pneumo after evacuation Bilateral apical Pneumothorax Bilateral lower extremity DVT Bilateral Effusion Left greater than Right - s/p coil and Gelfoam closure of Left lower pulmonary artery (peripheral small branch) by Rhoda Corrales and Michaela (see resuscitation note on 06/03/17) - Extubated 06/16/17, tolerating well. (Required re-intubation 06/02 for hypoxemia) - Chest x-ray LLL pneumonia vs lung infarct. Sputum with MRSA. on Zyvox, Levaquin. CXR 06/20/17 slight increase in L effusion - s/p chest tube x2 for right pneumothorax on 06/03. New apical chest tube placed 06/06/17 - IR, placed 24 F Left chest tube 06/05 with drainage of 2 L hemothorax, residual pneumothorax present, now resolved - CXR 06/07, resolution of right improving subcutaneous emphysema. Small residual left apical pneumo - s/p Bronchoscopy with removal of blood predominantly from L lung, s/p repeat bronch 06/06, 06/15 - DuoNeb q 6hours and PRN. INH Budesonide, Single dose of Decadron 6 mg IV x1 06/17 - Venous duplex -bilateral lower extremity DVT. IV heparin started 06/07/17 therapeutic. Coumadin started 06/19 - Removed R chest tube 06/19 3. Hemorrhagic shock Resolved Bilateral Lower extremity DVT/Anemia requiring transfusion/Sever Aortic Stenosis/Atrial Fibrillation with RVR/Possible history of ITP - IV heparin started 06/07/17 for bilateral lower extremity DVT and atrial fibrillation, on coumadin since 06/19 - Continue home Cardizem CD 120 mg daily. - Cleviprex, when necessary hydralazine (well beta blocked) to keep systolic blood pressure less than 150 - Continue IV Lasix, 20 mg IV q12. Home metoprolol at 25 mg by mouth every 8 hours. Home dose of digoxin - On Multaq at home. Defer to Dr. Corrales - Received 6 units of emergency release blood, 2 units of FFP and one of platelets 06/03/17. Multiple crystalloid boluses were given, PARVIN normal LV contractility, volume depletion - 2D Echo 06/04 RV LV function look normal, no PFO - Promacta for ITP - hydralazine 50mg po q8hr and losartan 100mg daily (06/09). now off cleviprex. 4. MRSA Pneumonia on Levaquin and Zyvox, 06/21 as per ID specialist Doctor Imelda recommended to continue Levaquin and Zyvox Oral for 7 to 10 days and follow CXR periodically and as clinically necessary, follow CBC and Platelet count, Bicarbonate while on Zyvox. She has Laboratory for today asked by Doctor Alvin. not yet in EMR. PROPH: - DCd SCDs due to DVT. IV Protonix. IV heparin started 06/07, Warfarin by mouth not yet therapeutic INR. Discharge Planning as per Attending physician. Jamar Samuels MD Jun 21, 2017 08:53
[2017-06-21 09:57] LABS: AUTOMATED NEUTROPHIL # 7.2 TH/MM3 (1.8-7.7); BASOPHIL # 0.1 TH/MM3 (0-0.2); BASOPHIL % 0.7 % (0.0-2.0); EOSINOPHIL # 0.1 TH/MM3 (0-0.4); HEMATOCRIT 32.7 % (35.0-46.0); HEMO FLAGS DIFF FINAL; LYMPH % 8.2 % (9.0-44.0); LYMPHOCYTE # 0.7 TH/MM3 (1.0-4.8); MEAN CORPUSCULAR HEMOGLOBIN 29.7 PG (27.0-34.0); MEAN CORPUSCULAR HGB CONC 33.4 % (32.0-36.0); MONO % 9.9 % (0.0-8.0); NEUT % 80.2 % (16.0-70.0); PLATELET COUNT 352 TH/MM3 (150-450); RED BLOOD COUNT 3.67 MIL/MM3 (4.00-5.30); RED CELL DISTRIBUTION WIDTH 15.9 % (11.6-17.2)
[2017-06-21 10:08] LABS: APTT (PATIENT) 73.7 SEC (24.3-30.1); INTERNATIONAL NORMALIZED RATIO 1.3 RATIO; PROTHROMBIN TIME - PATIENT 14.6 SEC (9.8-11.6)
[2017-06-21 10:19] LABS: AST (GOT) 34 U/L (15-37); BICARBONATE 29.2 MEQ/L (21.0-32.0); BLOOD UREA NITROGEN 19 MG/DL (7-18); GLOMERULAR FILTRATION RATE 78 ML/MIN (>89)
[2017-06-21 10:20] LABS: ALT (GPT) 40 U/L (10-53)
[2017-06-21] MEDS: RESP: BUDESONIDE 0.5 MG/2 ML NEB NEB SCH ×2 (10:36→21:16)
--- NOTE | 2017-06-21 10:43 | PD.CARD.PN ---
Subjective Subjective Remarks No events overnight Up to the chair, ambulating with help No chest pain/SOB Objective Medications Current Medications Medications (Trade) Dose Ordered Sig/Padmini Route Start Time Stop Time Status Last Admin (Peridex 0.12% Liq) 15 ml BID@08,20 MT 06/03/17 20:00 06/17/17 08:00 (Duoneb Neb) 1 ampule Q2HR NEB PRN NEB 06/03/17 19:00 06/15/17 19:56 (Protonix Inj) 40 mg Q12H IV PUSH 06/03/17 20:00 06/21/17 08:00 Potassium Chloride 100 ml @ 50 mls/hr Q2H PRN IV 06/03/17 19:15 06/09/17 08:04 Potassium Chloride 100 ml @ 50 mls/hr Q2H PRN IV 06/03/17 19:15 (K-Lyte Cl Eff) 50 meq UNSCH PRN PO 06/03/17 19:15 Potassium Chloride 100 ml @ 25 mls/hr UNSCH PRN IV 06/03/17 19:15 06/06/17 18:46 Potassium Chloride 100 ml @ 50 mls/hr Q2H PRN IV 06/03/17 19:15 06/13/17 08:23 Magnesium Sulfate 4 gm/Sodium Chloride 100 ml @ 50 mls/hr UNSCH PRN IV 06/03/17 19:15 (Mag-Ox) 800 mg UNSCH PRN PO 06/03/17 19:15 Magnesium Sulfate 2 gm/Sodium Chloride 100 ml @ 50 mls/hr UNSCH PRN IV 06/03/17 19:15 06/04/17 16:45 (K-Phos) 2,000 mg Q4H PRN PO 06/03/17 19:15 Sodium Phosphate 30 mmol/Sodium Chloride 250 ml @ 42 mls/hr UNSCH PRN IV 06/03/17 19:15 (K-Phos) 2,000 mg UNSCH PRN PO/TUBE 06/03/17 19:15 Potassium Phosphate 30 mmol/ Sodium Chloride 260 ml @ 42 mls/hr UNSCH PRN IV 06/03/17 19:15 06/13/17 12:03 (D50w (Vial) Inj) 50 ml UNSCH PRN IV PUSH 06/04/17 12:15 (Glucagon Inj) 1 mg UNSCH PRN OTHER 06/04/17 12:15 (Lopressor Inj) 1.25 mg Q6H PRN IV PUSH 06/04/17 19:15 06/06/17 20:29 (Colace Liq) 100 mg Q12HR PO 06/05/17 14:00 06/21/17 08:45 (K-Lyte Cl Eff) 25 meq Q12HR PO 06/05/17 14:00 06/21/17 08:46 (Lanoxin) 0.125 mg DAILY PO 06/06/17 09:00 06/21/17 08:46 (Lopressor) 25 mg Q8HR PO 06/07/17 14:00 06/21/17 06:05 (Cozaar) 50 mg DAILY PO 06/07/17 09:00 06/21/17 08:45 (Apresoline Inj) 20 mg Q4H PRN IV PUSH 06/07/17 08:00 06/14/17 01:21 (Synthroid) 50 mcg DAILY@0600 PO 06/07/17 08:00 06/21/17 06:06 (Promacta) 25 mg DAILY@1000 PO 06/08/17 10:00 06/21/17 08:44 (Heparin Inj) 5,000 units UNSCH PRN IV PUSH 06/07/17 22:00 (Heparin Inj) 2,500 units UNSCH PRN IV PUSH 06/07/17 22:00 (Pill Splitter) 1 ea UNSCH PRN OTHER 06/07/17 22:15 (NovoLOG SUPPLEMENTAL SCALE) 1 BID@0800,2000 SQ 06/08/17 20:00 06/15/17 08:43 (Mycostatin Liq) 5 ml QID SWISH-SWAL 06/12/17 13:00 06/21/17 08:45 (Cardizem) 60 mg Q6HR PO 06/13/17 12:00 06/21/17 06:05 Heparin Sodium/ Dextrose 250 ml @ 11 mls/hr TITRATE IV 06/16/17 07:30 06/20/17 06:46 (Pulmicort Respule Neb) 0.5 mg Q12HR NEB NEB 06/16/17 11:15 06/21/17 10:36 (Tylenol 650 Mg/ 20 ml Liq) 650 mg Q6H PRN PO 06/18/17 06:30 06/21/17 04:17 (Lasix Inj) 20 mg Q12H IV PUSH 06/19/17 09:00 06/21/17 08:45 (Levaquin) 500 mg DAILY PO 06/19/17 09:00 06/21/17 08:46 (Coumadin) 3 mg DAILY@16 PO 06/19/17 16:00 06/20/17 14:12 (Zyvox) 600 mg Q12HR PO 06/19/17 21:00 06/21/17 08:45 Pharmacy Profile Note 0 ml @ 0 mls/hr UNSCH OTHER 06/20/17 10:00 (Duoneb Neb) 1 ampule Q6HR NEB NEB 06/20/17 16:00 06/21/17 10:36 Vital Signs / I&O Vital Signs Date Time Temp Pulse Resp B/P (MAP) Pulse Ox O2 Delivery O2 Flow Rate FiO2 06/21/17 10:00 68 06/21/17 09:00 68 06/21/17 08:00 68 06/21/17 07:00 69 06/21/17 06:00 68 06/21/17 05:08 68 06/21/17 04:00 82 06/21/17 03:36 98 Nasal Cannula 2.00 06/21/17 03:10 69 06/21/17 03:10 97.9 68 18 107/53 (71) 98 06/21/17 02:19 69 06/21/17 01:04 68 06/21/17 00:35 69 06/20/17 23:10 69 06/20/17 23:10 97.5 69 18 134/64 (87) 99 06/20/17 22:00 68 06/20/17 21:00 70 06/20/17 20:00 70 06/20/17 19:30 98.1 74 17 134/63 (86) 98 06/20/17 19:30 70 06/20/17 18:00 71 06/20/17 17:00 74 06/20/17 16:48 92 Nasal Cannula 1.00 06/20/17 16:30 98.4 74 16 146/65 (92) 97 06/20/17 16:00 68 06/20/17 15:00 78 06/20/17 11:25 98.1 69 15 136/67 (90) 99 06/20/17 11:25 68 I/O 06/20/17 06/20/17 06/20/17 06/21/17 06/21/17 06/21/17 07:00 15:00 23:00 07:00 15:00 23:00 Intake Total 240 ml 1170 ml 870 ml Output Total 650 ml 950 ml 400 ml Balance -410 ml 220 ml 470 ml Intake Oral 240 ml 920 ml 780 ml IV Total 250 ml 90 ml Output Urine Total 650 ml 950 ml 400 ml # Bowel Movements 1 2 Physical Exam GENERAL: NAD, AAOx3 SKIN: Warm and dry. HEAD: Atraumatic. Normocephalic. EYES: Pupils equal and round. No scleral icterus. No injection or drainage. ENT: No nasal bleeding or discharge. Mucous membranes pink and moist. NECK: Trachea midline. No JVD. CARDIOVASCULAR: Irregularly irregular. 3/6 crescendo-decrescendo to the RSB RESPIRATORY: No accessory muscle use. Decreased breath sounds bilaterally GASTROINTESTINAL: Abdomen soft, non-tender, nondistended. Hepatic and splenic margins not palpable. MUSCULOSKELETAL: Extremities without clubbing, cyanosis, or edema. No obvious deformities. NEUROLOGICAL: Awake and alert. No obvious cranial nerve deficits. Motor grossly within normal limits. Five out of 5 muscle strength in the arms and legs. Normal speech. PSYCHIATRIC: Appropriate mood and affect; insight and judgment normal. Laboratory Laboratory Tests Test 06/20/17 10:58 06/21/17 09:03 White Blood Count 9.7 TH/MM3 9.0 TH/MM3 Red Blood Count 3.89 MIL/MM3 3.67 MIL/MM3 Hemoglobin 11.6 GM/DL 10.9 GM/DL Hematocrit 34.5 % 32.7 % Mean Corpuscular Volume 88.5 FL 89.0 FL Mean Corpuscular Hemoglobin 29.8 PG 29.7 PG Mean Corpuscular Hemoglobin Concent 33.6 % 33.4 % Red Cell Distribution Width 15.6 % 15.9 % Platelet Count 463 TH/MM3 352 TH/MM3 Mean Platelet Volume 6.8 FL 7.2 FL Neutrophils (%) (Auto) 84.4 % 80.2 % Lymphocytes (%) (Auto) 6.3 % 8.2 % Monocytes (%) (Auto) 8.1 % 9.9 % Eosinophils (%) (Auto) 0.4 % 1.0 % Basophils (%) (Auto) 0.8 % 0.7 % Neutrophils # (Auto) 8.2 TH/MM3 7.2 TH/MM3 Lymphocytes # (Auto) 0.6 TH/MM3 0.7 TH/MM3 Monocytes # (Auto) 0.8 TH/MM3 0.9 TH/MM3 Eosinophils # (Auto) 0.0 TH/MM3 0.1 TH/MM3 Basophils # (Auto) 0.1 TH/MM3 0.1 TH/MM3 CBC Comment DIFF FINAL DIFF FINAL Differential Comment Blood Urea Nitrogen 21 MG/DL 19 MG/DL Creatinine 0.75 MG/DL 0.71 MG/DL Random Glucose 108 MG/DL 90 MG/DL Total Protein 6.5 GM/DL Albumin 2.3 GM/DL 2.2 GM/DL Calcium Level 8.7 MG/DL 8.7 MG/DL Magnesium Level 2.3 MG/DL Alkaline Phosphatase 146 U/L Aspartate Amino Transf (AST/SGOT) 37 U/L 34 U/L Alanine Aminotransferase (ALT/SGPT) 46 U/L 40 U/L Total Bilirubin 0.7 MG/DL Sodium Level 137 MEQ/L Potassium Level 4.1 MEQ/L Chloride Level 96 MEQ/L Carbon Dioxide Level 33.3 MEQ/L 29.2 MEQ/L Anion Gap 8 MEQ/L Estimat Glomerular Filtration Rate 73 ML/MIN 78 ML/MIN Prothrombin Time 14.6 SEC Prothromb Time International Ratio 1.3 RATIO Activated Partial Thromboplast Time 73.7 SEC Imaging Last 24 hours Impressions Chest X-Ray 06/21/17 0600 Signed Impressions: Service Date/Time: Wednesday, June 21, 2017 05:07 - CONCLUSION: Increased bilateral pulmonary opacity suggesting pulmonary edema. No change in bilateral pleural effusions. Pawan You MD Assessment and Plan Problem List: (1) Shock, postoperative ICD Codes: T81.10XA - Postprocedural shock unspecified, initial encounter Status: Resolved (2) Pulmonary arterial thrombosis ICD Codes: I26.99 - Other pulmonary embolism without acute cor pulmonale Status: Acute (3) CAD (coronary artery disease) ICD Codes: I25.10 - Atherosclerotic heart disease of [place] coronary artery without angina pectoris (4) Aortic stenosis ICD Codes: I35.0 - Nonrheumatic aortic (valve) stenosis (5) DVT (deep venous thrombosis) ICD Codes: I82.409 - Acute embolism and thrombosis of unspecified deep veins of unspecified lower extremity Assessment and Plan 1) Severe with mean grad 45 by cath 2) Left pulmonary artery with hemorrhage s/p embolization 3) DVT bilaterally Started on heparin, transferring to Coumadin 4) PT/OT Dallas Willett DO Jun 21, 2017 10:43
[2017-06-21 11:03] LABS: ALKALINE PHOSPHATASE 136 U/L (45-117); ANION GAP 10 MEQ/L (5-15); CHLORIDE 98 MEQ/L (98-107); POTASSIUM 4.3 MEQ/L (3.5-5.1); SODIUM (NA) 137 MEQ/L (136-145); TOTAL BILIRUBIN ADULT 0.7 MG/DL (0.2-1.0)
[2017-06-21] MEDS: HEPARIN 25,000 UNITS-D5W 250 ML - PREMIX IV SCH (12:07)
[2017-06-21] MEDS: WARFARIN SOD 3 MG TAB PO SCH (15:11)
[2017-06-22] VITALS (27 sets, daily range): BP systolic 108–148; BP diastolic 53–68; PULSE 68–88; RESP 16–18; TEMP 97.6–98.1; O2SAT 92–96
[2017-06-22] MEDS: ACETAMINOPHEN 650 MG/20.3 ML UDC PO PRN ×5 (01:54→22:06)
[2017-06-22] MEDS: DILTIAZEM HCL 60 MG TAB PO SCH ×4 (01:55→17:58)
[2017-06-22] MEDS: RESP: ALBUTEROL 2.5 MG/IPRATROPIUM 0.5 MG NEB (SCH) NEB ×4 (03:22→21:08)
[2017-06-22] MEDS: METOPROLOL TARTRATE 25 MG TAB PO SCH ×4 (05:37→22:06)
[2017-06-22] MEDS: LEVOTHYROXINE SODIUM 50 MCG TAB PO SCH (05:37)
[2017-06-22 06:17] LABS: INTERNATIONAL NORMALIZED RATIO 1.8 RATIO; PROTHROMBIN TIME - PATIENT 20.4 SEC (9.8-11.6)
[2017-06-22 06:24] LABS: APTT (PATIENT) 102.9 SEC (24.3-30.1)
[2017-06-22] MEDS: INSULIN ASPART SUPPLEMENTAL SCALE SQ SCH ×2 (08:00→20:00)
[2017-06-22] MEDS: CHLORHEXIDINE 0.12% (ORAL KIT) 15 ML CUP MT SCH ×2 (08:00→19:59)
[2017-06-22] MEDS: NYSTATIN SUSP 500,000 U/5 ML CUP SWISH-SWAL SCH ×4 (08:46→21:00)
[2017-06-22] MEDS: POTASSIUM CHLORIDE 25 MEQ EFFERVESCENT TAB PO SCH ×2 (08:46→21:00)
[2017-06-22] MEDS: LEVOFLOXACIN 500 MG TAB PO SCH (08:46)
[2017-06-22] MEDS: PANTOPRAZOLE SODIUM 40 MG VIAL IV PUSH SCH ×2 (08:47→19:00)
[2017-06-22] MEDS: ELTROMBOPAG 50 MG TAB PO SCH (08:47)
[2017-06-22] MEDS: LOSARTAN 50 MG TAB PO SCH (08:47)
[2017-06-22] MEDS: LINEZOLID 600 MG TAB PO SCH ×3 (08:47→21:59)
[2017-06-22] MEDS: DOCUSATE SODIUM 100 MG/10 ML UDC PO SCH ×2 (09:00→21:00)
[2017-06-22] MEDS: DIGOXIN 0.125 MG TAB PO SCH (09:00)
[2017-06-22] MEDS: FUROSEMIDE 20 MG/2 ML VIAL IV PUSH SCH ×2 (09:00→21:59)
[2017-06-22] MEDS: RESP: BUDESONIDE 0.5 MG/2 ML NEB NEB SCH (10:59)
[2017-06-22 12:28] LABS: APTT (PATIENT) 54.8 SEC (24.3-30.1)
--- NOTE | 2017-06-22 12:45 | PD.CARD.PN ---
Subjective Subjective Remarks No events overnight Up to the chair, ambulating with help No chest pain/SOB Objective Medications Current Medications Medications (Trade) Dose Ordered Sig/Padmini Route Start Time Stop Time Status Last Admin (Peridex 0.12% Liq) 15 ml BID@08,20 MT 06/03/17 20:00 06/17/17 08:00 (Duoneb Neb) 1 ampule Q2HR NEB PRN NEB 06/03/17 19:00 06/15/17 19:56 (Protonix Inj) 40 mg Q12H IV PUSH 06/03/17 20:00 06/22/17 08:47 Potassium Chloride 100 ml @ 50 mls/hr Q2H PRN IV 06/03/17 19:15 06/09/17 08:04 Potassium Chloride 100 ml @ 50 mls/hr Q2H PRN IV 06/03/17 19:15 (K-Lyte Cl Eff) 50 meq UNSCH PRN PO 06/03/17 19:15 Potassium Chloride 100 ml @ 25 mls/hr UNSCH PRN IV 06/03/17 19:15 06/06/17 18:46 Potassium Chloride 100 ml @ 50 mls/hr Q2H PRN IV 06/03/17 19:15 06/13/17 08:23 Magnesium Sulfate 4 gm/Sodium Chloride 100 ml @ 50 mls/hr UNSCH PRN IV 06/03/17 19:15 (Mag-Ox) 800 mg UNSCH PRN PO 06/03/17 19:15 Magnesium Sulfate 2 gm/Sodium Chloride 100 ml @ 50 mls/hr UNSCH PRN IV 06/03/17 19:15 06/04/17 16:45 (K-Phos) 2,000 mg Q4H PRN PO 06/03/17 19:15 Sodium Phosphate 30 mmol/Sodium Chloride 250 ml @ 42 mls/hr UNSCH PRN IV 06/03/17 19:15 (K-Phos) 2,000 mg UNSCH PRN PO/TUBE 06/03/17 19:15 Potassium Phosphate 30 mmol/ Sodium Chloride 260 ml @ 42 mls/hr UNSCH PRN IV 06/03/17 19:15 06/13/17 12:03 (D50w (Vial) Inj) 50 ml UNSCH PRN IV PUSH 06/04/17 12:15 (Glucagon Inj) 1 mg UNSCH PRN OTHER 06/04/17 12:15 (Lopressor Inj) 1.25 mg Q6H PRN IV PUSH 06/04/17 19:15 06/06/17 20:29 (Colace Liq) 100 mg Q12HR PO 06/05/17 14:00 06/21/17 22:34 (K-Lyte Cl Eff) 25 meq Q12HR PO 06/05/17 14:00 06/22/17 08:46 (Lanoxin) 0.125 mg DAILY PO 06/06/17 09:00 06/22/17 09:00 (Lopressor) 25 mg Q8HR PO 06/07/17 14:00 06/22/17 05:37 (Cozaar) 50 mg DAILY PO 06/07/17 09:00 06/22/17 08:47 (Apresoline Inj) 20 mg Q4H PRN IV PUSH 06/07/17 08:00 06/14/17 01:21 (Synthroid) 50 mcg DAILY@0600 PO 06/07/17 08:00 06/22/17 05:37 (Promacta) 25 mg DAILY@1000 PO 06/08/17 10:00 06/22/17 08:47 (Heparin Inj) 5,000 units UNSCH PRN IV PUSH 06/07/17 22:00 (Heparin Inj) 2,500 units UNSCH PRN IV PUSH 06/07/17 22:00 (Pill Splitter) 1 ea UNSCH PRN OTHER 06/07/17 22:15 (NovoLOG SUPPLEMENTAL SCALE) 1 BID@0800,2000 SQ 06/08/17 20:00 06/15/17 08:43 (Mycostatin Liq) 5 ml QID SWISH-SWAL 06/12/17 13:00 06/22/17 08:46 (Cardizem) 60 mg Q6HR PO 06/13/17 12:00 06/22/17 11:20 Heparin Sodium/ Dextrose 250 ml @ 11 mls/hr TITRATE IV 06/16/17 07:30 06/21/17 12:07 (Pulmicort Respule Neb) 0.5 mg Q12HR NEB NEB 06/16/17 11:15 06/22/17 10:59 (Tylenol 650 Mg/ 20 ml Liq) 650 mg Q6H PRN PO 06/18/17 06:30 06/22/17 08:46 (Lasix Inj) 20 mg Q12H IV PUSH 06/19/17 09:00 06/22/17 09:00 (Levaquin) 500 mg DAILY PO 06/19/17 09:00 06/22/17 08:46 (Coumadin) 3 mg DAILY@16 PO 06/19/17 16:00 06/21/17 15:11 (Zyvox) 600 mg Q12HR PO 06/19/17 21:00 06/22/17 08:47 Pharmacy Profile Note 0 ml @ 0 mls/hr UNSCH OTHER 06/20/17 10:00 (Duoneb Neb) 1 ampule Q6HR NEB NEB 06/20/17 16:00 06/22/17 10:59 Vital Signs / I&O Vital Signs Date Time Temp Pulse Resp B/P (MAP) Pulse Ox O2 Delivery O2 Flow Rate FiO2 06/22/17 12:00 69 06/22/17 11:00 98.1 80 16 110/53 (72) 94 06/22/17 11:00 69 06/22/17 10:59 94 21 06/22/17 10:00 68 06/22/17 09:00 70 06/22/17 08:00 72 06/22/17 07:30 97.7 72 18 148/68 (94) 92 06/22/17 07:30 71 06/22/17 06:07 69 06/22/17 05:26 77 06/22/17 04:12 70 06/22/17 03:27 71 06/22/17 03:27 97.9 77 16 130/61 (84) 95 06/22/17 02:13 71 06/22/17 01:09 70 06/22/17 00:34 75 06/21/17 23:15 97.6 78 18 130/63 (85) 94 06/21/17 23:15 92 06/21/17 22:00 72 06/21/17 21:16 96 Nasal Cannula 2.00 06/21/17 21:00 70 06/21/17 20:15 68 06/21/17 20:01 97.6 70 16 129/61 (83) 92 06/21/17 19:41 70 06/21/17 18:00 75 06/21/17 17:00 106 06/21/17 16:00 80 06/21/17 15:00 72 06/21/17 15:00 98.1 80 16 135/60 (85) 93 06/21/17 14:00 80 06/21/17 13:00 72 I/O 06/21/17 06/21/17 06/21/17 06/22/17 06/22/17 06/22/17 07:00 15:00 23:00 07:00 15:00 23:00 Intake Total 879 ml 63 ml 666 ml 240 ml Output Total 400 ml 350 ml Balance 479 ml 63 ml 316 ml 240 ml Intake Oral 780 ml 420 ml 240 ml IV Total 99 ml 63 ml 246 ml Output Urine Total 400 ml 350 ml # Voids 2 # Bowel Movements 0 Physical Exam GENERAL: NAD, AAOx3 SKIN: Warm and dry. HEAD: Atraumatic. Normocephalic. EYES: Pupils equal and round. No scleral icterus. No injection or drainage. ENT: No nasal bleeding or discharge. Mucous membranes pink and moist. NECK: Trachea midline. No JVD. CARDIOVASCULAR: Irregularly irregular. 3/6 crescendo-decrescendo to the RSB RESPIRATORY: No accessory muscle use. Decreased breath sounds bilaterally GASTROINTESTINAL: Abdomen soft, non-tender, nondistended. Hepatic and splenic margins not palpable. MUSCULOSKELETAL: Extremities without clubbing, cyanosis, or edema. No obvious deformities. NEUROLOGICAL: Awake and alert. No obvious cranial nerve deficits. Motor grossly within normal limits. Five out of 5 muscle strength in the arms and legs. Normal speech. PSYCHIATRIC: Appropriate mood and affect; insight and judgment normal. Laboratory Laboratory Tests Test 06/22/17 05:30 06/22/17 11:23 Prothrombin Time 20.4 SEC Prothromb Time International Ratio 1.8 RATIO Activated Partial Thromboplast Time 102.9 SEC 54.8 SEC Assessment and Plan Problem List: (1) Shock, postoperative ICD Codes: T81.10XA - Postprocedural shock unspecified, initial encounter Status: Resolved (2) Pulmonary arterial thrombosis ICD Codes: I26.99 - Other pulmonary embolism without acute cor pulmonale Status: Acute (3) CAD (coronary artery disease) ICD Codes: I25.10 - Atherosclerotic heart disease of [place] coronary artery without angina pectoris (4) Aortic stenosis ICD Codes: I35.0 - Nonrheumatic aortic (valve) stenosis (5) DVT (deep venous thrombosis) ICD Codes: I82.409 - Acute embolism and thrombosis of unspecified deep veins of unspecified lower extremity Assessment and Plan 1) Severe with mean grad 45 by cath 2) Left pulmonary artery with hemorrhage s/p embolization 3) DVT bilaterally Started on heparin, transferring to Coumadin 4) PT/OT 5) Dr. Corrales back tomorrow to assume care 6) Rehab hopefully soon Dallas Willett DO Jun 22, 2017 12:45
--- NOTE | 2017-06-22 13:35 | HHI.PR ---
Subjective Remarks Patient transferred from boilermaker management to hospitalist group Healthcare Receptionist Notes: I was emergently called to laborer pipeline by Dr. Corrales. Ms. Mahoney who is 89 yo female with history of severe aortic stenosis was undergoing left and right heart catheter for TAVR evaluation. With right heart catheterization patient developed acute massive hemoptysis with shock secondary to acute rupture of pulmonary artery. Patient was intubated by Dr. Potter and ETT was advance to Right lung for selective right lung ventilation due to massive hemorrhage from Left lung. On my arrival to laborer pipeline, patient was rapidly dropping blood pressure. Dopamine was already started. I ordered Shantanu-Synephrine, at 300 mcg/ m in an attempt to increase MAP and also increase the pulmonary vasoconstriction. Levophed was also added to maintain blood pressure and rapidly titrated up. Emergency release blood initially 3 units was ordered stat along with 2 units of FFP, 1 unit of platelet. I also emergently contacted Dr. Vásquez was in the office. (Dr. Bedoya the on-call CT surgeon was operating). While on Levophed Shantanu-Synephrine and dopamine, patient developed coarse V. fib/V. tach, received brief CPR, and was DC cardioverted 1 with return of spontaneous circulation and sinus rhythm. I discussed with Dr. Corrales and anesthesiologist, I also contacted Dr. Josue from invasive radiology.Dr. Josue immediately arrived to the laborer pipeline. Dr. Abdelrahman francis performed PARVIN which showed vigorous LV contraction but cavity was empty. Received Continuous massive fluid resuscitation with multiple crystalloid boluses, bicarbonate and calcium. Blood arrived and initially 3 units of PRBC, 2 units of 1 unit of platelets was given with calcium total 3 g given after blood transfusion. Because of persistent hypotension, additional 2 units of PRBC was given. While I resuscitated the patient, Dr. Corrales and Dr. Jennings performed right heart cath, identified bleeding of a small branch in the left pulmonary artery. They put put in 6 coils in the lower left lower pulmonary artery followed with Gelfoam closing the perforation. 06/04: Emergency chest 2 yesterday for right pneumothorax with hypotension and hypoxia. Remains intubated sedated and on Levophed. FiO2 remains at 100%, Sat improving to 94-95 %. UO adequate overnight. 2-D echo on my review normal LV and RV function, no PFO on bubble study 06/05: Patient is in atrial fibrillation currently on Cardene infusion for blood pressure control. Chest x-ray shows percutaneous emphysema and small apical pneumothorax. Remains on 80% FiO2. I discussed with interventional radiology. We will attempt CT-guided repositioning of the pigtail catheter and possibly upgrading to a larger tube. Urine output adequate 750 mL in 24 hours 06/06: Currently remains in A. fib with rate controlled, hypertensive on Cardizem drip. Oxygen saturation has improved FiO2 now to 40% with saturation 97%. Urine output excellent with Lasix 4.5 L in 24 hours. Chest x-ray today shows 2.5 cm bilateral apical pneumothorax, also left side has 1.2 cm lateral pneumothorax 06/07: Intubated, on low dose propofol for ventilator synchrony. FiO2 40% oxygen saturation 99%. Chest x-ray and labs pending urine output 2.7 L. 3 chest tubes with no air leak. If neuro exam not improving off sedation will check CT of the head. Currently on propofol will change number operator to Precedex to initiate weaning trials. On weaning doses of inhaled Flolan currently on 30, 000 ng 06/08: Remains intubated, mild sedation with Precedex. Overnight FiO2 increased to 65% for hypoxia. CXR left more than right consolidation of lower lobes. Sputum positive for MRSA on vancomycin. Bilateral lower extremity US studies yesterday showed DVT, initiated on IV heparin. Currently therapeutic on heparin. No evidence of pulmonary hemorrhage. Neuro exam is improving weekly follows commands all 4 extremities 06/09: remains intubated. failed CPAP yesterday. on Cleviprex and precedex. fio2 back to 40%. CXR improved aeration with the exception of known LLL. FC x 4. 06/10: failed SBT again for apnea. but much more awake. denies pain. ROS negative. off cleviprex. new air leak in chest tube. will get chest xray to re- eval. 06/11: Warm, well perfused. Alert, cooperative. Communicates with head nod, hand gestures. Comfortable respiratory pattern and acceptable excursions.Air leaks will seal when off positive pressure ventilation. FiO2 to 0.80 last night briefly; now 0.40. I'll come back later today and see if I can get her extubated. 06/12: Required re-intubation for hypoxemic respiratory failure last evening. She is now warm with well perfused fingers and toes. Low dose levophed not hampering peripheral perfusion. Mild prerenal azotemia. CXR with diffuse infiltrates as before. WBC 32,00, afebrile. Must assume colonized lungs at least. Antibiotic coverage is appropriate. Reculture sputum, urine. Progress to weaning trials daily.Hemodynamics appear excellent, rate a minor problem pretty well controlled. Continue Vanc. Stop pip/roxi, start cefepime. Narrow after cultures. Change CVLs, draw blood cultures. 06/13: Persistent leukocytosis, Tmax 100.2. O2 diffusion acceptable on positive pressure ventilation. Sputum culture pending. Remains warm and well perfused. Continue daily spontaneous breathing trials. 06/14: Bronch and BAL this morning by Dr. Muñoz. Gas exchange remains acceptable. Continue SBTs. 06/15: Looks great on SBTs/CPAP. She would benefit from a temporary tracheostomy. But she will eventually be off and extubated for good. C&S pending from BAL. Continue present abx regimen - discussed with Dr. Segura. 06/16: Awake alert following commands on vent. Currently on Precedex 0.5 g per KG per hour. Still has large amount of ETT secretions, but improving. R pigtail dislodged with turning, no pneumo on repeat CXR 06/17: Awake alert on low dose Precedex. Tolerated CPAP yesterday. Not extubated yesterday due copious bloody secretions. The chest x-ray shows some interval improvement and secretions slightly improved. Will proceed with SBT and possible extubation 06/18: Extubated yesterday tolerating very well. Coughing up sputum, cough seems adequate. Slight increase in WBC to 19.1. Received single dose of Decadron yesterday. Overall doing well communicating, no fever 06/19: WBC count slightly improved 17.9. Otherwise breathing comfortably. Single episode of delirium overnight. Will remove Payne today and also remove right chest tube 06/20: Up in chair, labs pending. CXR showing slight increase in L effusion. Will check bedside US. Hospitalist Notes: 06/21: Stable in her bedroom in sitting position eating her breakfast, no complaint, no nausea, vomit or diarrhea, on contact precautions, vital signs stable as per ID specialist Doctor Imelda recommended to continue Levaquin and Zyvox Oral for 7 to 10 days and follow CXR periodically and as clinically necessary, follow CBC and Platelet count, Bicarbonate while on Zyvox. 06/22: Seen in her bedroom and discussed with nurse Leonidas Deleon, no nausea, vomit or diarrhea. working with PT. tomorrow will be followed by her Primary pcmh specialist and probable discharge to Rehab facility. Objective Vital Signs Date Time Temp Pulse Resp B/P (MAP) Pulse Ox O2 Delivery O2 Flow Rate FiO2 06/22/17 12:00 69 06/22/17 11:00 98.1 80 16 110/53 (72) 94 06/22/17 11:00 69 06/22/17 10:59 94 21 06/22/17 10:00 68 06/22/17 09:00 70 06/22/17 08:00 72 06/22/17 07:30 97.7 72 18 148/68 (94) 92 06/22/17 07:30 71 06/22/17 06:07 69 06/22/17 05:26 77 06/22/17 04:12 70 06/22/17 03:27 71 06/22/17 03:27 97.9 77 16 130/61 (84) 95 06/22/17 02:13 71 06/22/17 01:09 70 06/22/17 00:34 75 06/21/17 23:15 97.6 78 18 130/63 (85) 94 06/21/17 23:15 92 06/21/17 22:00 72 06/21/17 21:16 96 Nasal Cannula 2.00 06/21/17 21:00 70 06/21/17 20:15 68 06/21/17 20:01 97.6 70 16 129/61 (83) 92 06/21/17 19:41 70 06/21/17 18:00 75 06/21/17 17:00 106 06/21/17 16:00 80 06/21/17 15:00 72 06/21/17 15:00 98.1 80 16 135/60 (85) 93 06/21/17 14:00 80 I/O 06/21/17 06/21/17 06/21/17 06/22/17 06/22/17 06/22/17 07:00 15:00 23:00 07:00 15:00 23:00 Intake Total 879 ml 63 ml 666 ml 240 ml 36 ml Output Total 400 ml 350 ml Balance 479 ml 63 ml 316 ml 240 ml 36 ml Intake Oral 780 ml 420 ml 240 ml IV Total 99 ml 63 ml 246 ml 36 ml Output Urine Total 400 ml 350 ml # Voids 2 # Bowel Movements 0 Result Diagram: 06/21/1703 06/21/17 09 Imaging Last Impressions Chest X-Ray 06/21/17 0600 Signed Impressions: Service Date/Time: Wednesday, June 21, 2017 05:07 - CONCLUSION: Increased bilateral pulmonary opacity suggesting pulmonary edema. No change in bilateral pleural effusions. Pawan You MD Tunnelled Chest Tube Removal 06/13/17 0000 Signed Impressions: Service Date/Time: Tuesday, June 13, 2017 00:00 - CONCLUSION: Uncomplicated chest tube removal. Joselo Jennings MD Upper Extremity Ultrasound 06/07/17 0000 Signed Impressions: Service Date/Time: Wednesday, June 07, 2017 18:21 - CONCLUSION: 1. Limited exam but no deep venous thrombosis is identified bilaterally. Jamie Corrales MD Lower Extremity Ultrasound 06/07/17 0000 Signed Impressions: Service Date/Time: Wednesday, June 07, 2017 17:57 - CONCLUSION: 1. Positive bilateral lower extremity deep venous thrombosis, nonocclusive as above. Jamie Corrales MD Head CT 06/07/17 0000 Signed Impressions: Service Date/Time: Wednesday, June 07, 2017 17:01 - CONCLUSION: 1. No acute intracranial abnormality. 2. Extensive subcutaneous air tracking up from the chest. Luc Cain Jr., MD Cervical Spine CT 06/07/17 0000 Signed Impressions: Service Date/Time: Wednesday, June 07, 2017 17:01 - CONCLUSION: 1. Extensive subcutaneous emphysema. 2. Tiny left apical pneumothorax. 3. Diffuse mild degenerative changes without central canal stenosis. Multilevel neural foraminal narrowing. 4. Prevertebral soft tissues obscured by an endotracheal tube and nasogastric tube. Luc Cain Jr., MD Chest Tube Insertion 06/05/17 0000 Signed Impressions: Service Date/Time: May 09:15 - CONCLUSION: Uncomplicated chest tube placement as above. Maxwell Aldana MD Chest CT 06/05/17 0000 Signed Impressions: Service Date/Time: May 08:47 - CONCLUSION: 1. Moderate left-sided hemothorax with associated left lower lobe consolidation which may reflect a combination of compressive atelectasis, aspiration, and potentially lung infarction given recent pulmonary artery embolization. 2. Trace right apical pneumothorax with large bore chest tube in the major fissure and smallbore chest tube in the soft tissues. Significant subcutaneous emphysema extending to the cervicothoracic junction bilaterally. 3. Airspace consolidation in the right lower lobe posteriorly may reflect aspiration. Maxwell Aldana MD Embolization 06/03/17 0000 Signed Impressions: Service Date/Time: Saturday, June 03, 2017 00:00 - CONCLUSION: Left pulmonary artery rupture with successful coil embolization of a lower lobe branch vessel as above. Joselo Jennings MD Abdomen X-Ray 06/03/17 0000 Signed Impressions: Service Date/Time: Saturday, June 03, 2017 18:04 - CONCLUSION: Tip of the NG tube appears to be coiled in the stomach. KLeonidas Valdovinos MD Other Results Laboratory Tests Test 06/03/17 18:10 06/04/17 04:15 06/05/17 10:15 06/07/17 06:48 Acanthocytes 1+ Nasal Screen MRSA (PCR) MRSA NOT DETECTED Fibrinogen 374 mg/dL Thyroid Stimulating Hormone 3rd Gen 2.470 uIU/ML Test 06/08/17 04:30 06/09/17 04:30 06/11/17 20:14 06/12/17 04:20 Myelocytes 1 % Ovalocytes 1+ Vancomycin Level Trough 25.5 MCG/ML Eosinophils % 1 % Metamyelocytes 1 % Digoxin Level 1.3 NG/ML Test 06/12/17 08:20 06/13/17 05:20 06/13/17 08:36 06/13/17 22:00 Urine Renal Epithelial Cells 1 /hpf Urine Yeast with Hyphae MANY Random Vancomycin Level 20.8 COMMENT Lactic Acid Level 1.3 mmol/L Direct Bilirubin 0.6 MG/DL Indirect Bilirubin 0.7 MG/DL C-Reactive Protein High Sensitivity 74.7 mg/L Lipase 183 U/L Urine Yeast (Budding) MANY Test 06/14/17 04:13 06/16/17 04:00 06/16/17 08:57 06/17/17 05:10 Differential Total Cells Counted 100 Neutrophils % (Manual) 90 % Band Neutrophils % 5 % Lymphocytes % 2 % Monocytes % 3 % Neutrophils # (Manual) 30.5 TH/MM3 Platelet Estimate NORMAL Platelet Morphology Comment NORMAL Red Cell Morphology Comment NORMAL B-Type Natriuretic Peptide 369 PG/ML Blood Gas Puncture Site RT RADIAL Blood Gas Patient Temperature 98.6 Blood Gas HCO3 27 mmol/L Blood Gas Base Excess 3.6 mmol/L Blood Gas Oxygen Saturation 97 % Arterial Blood pH 7.48 Arterial Blood Partial Pressure CO2 37 mmHg Arterial Blood Partial Pressure O2 137 mmHg Arterial Blood Oxygen Content 17.2 Vol % Arterial Blood Carboxyhemoglobin 1.3 % Arterial Blood Methemoglobin 1.2 % Blood Gas Hemoglobin 12.5 G/DL Oxygen Delivery Device VENTILATOR Blood Gas Ventilator Setting CPAPPEEP5/PS5 Blood Gas Inspired Oxygen 40 % Protein Corrected Calcium 8.5 MG/DL Blood Urea Nitrogen 31 MG/DL Creatinine 0.66 MG/DL Random Glucose 127 MG/DL Total Protein 5.1 GM/DL Albumin 1.5 GM/DL Calcium Level 7.4 MG/DL Phosphorus Level 3.1 MG/DL Magnesium Level 2.2 MG/DL Alkaline Phosphatase 154 U/L Aspartate Amino Transf (AST/SGOT) 35 U/L Alanine Aminotransferase (ALT/SGPT) 41 U/L Total Bilirubin 0.7 MG/DL Sodium Level 134 MEQ/L Potassium Level 4.1 MEQ/L Chloride Level 98 MEQ/L Carbon Dioxide Level 28.5 MEQ/L Test 06/19/17 03:51 06/19/17 06:45 06/20/17 10:58 06/21/17 09:03 Hematology Comments Urine Color YELLOW Urine Turbidity CLEAR Urine pH 6.0 Urine Specific [place] 1.017 Urine Protein TRACE mg/dL Urine Glucose (UA) NEG mg/dL Urine Ketones NEG mg/dL Urine Occult Blood NEG Urine Nitrite NEG Urine Bilirubin NEG Urine Urobilinogen LESS THAN 2.0 MG/DL Urine Leukocyte Esterase SMALL Urine RBC 1 /hpf Urine WBC 5 /hpf Urine WBC Clumps RARE Urine Squamous Epithelial Cells <1 /hpf Urine Bacteria RARE /hpf Urine Hyaline Casts 1 /lpf Urine Mucus FEW /lpf Microscopic Urinalysis Comment CATH-CULTURE IND Blood Urea Nitrogen 21 MG/DL 19 MG/DL Creatinine 0.75 MG/DL 0.71 MG/DL Random Glucose 108 MG/DL 90 MG/DL Total Protein 6.5 GM/DL 6.2 GM/DL Albumin 2.3 GM/DL 2.2 GM/DL Calcium Level 8.7 MG/DL 8.7 MG/DL Magnesium Level 2.3 MG/DL Alkaline Phosphatase 146 U/L 136 U/L Aspartate Amino Transf (AST/SGOT) 37 U/L 34 U/L Alanine Aminotransferase (ALT/SGPT) 46 U/L 40 U/L Total Bilirubin 0.7 MG/DL 0.7 MG/DL Sodium Level 137 MEQ/L 137 MEQ/L Potassium Level 4.1 MEQ/L 4.3 MEQ/L Chloride Level 96 MEQ/L 98 MEQ/L Carbon Dioxide Level 33.3 MEQ/L 29.2 MEQ/L White Blood Count 9.0 TH/MM3 Red Blood Count 3.67 MIL/MM3 Hemoglobin 10.9 GM/DL Hematocrit 32.7 % Mean Corpuscular Volume 89.0 FL Mean Corpuscular Hemoglobin 29.7 PG Mean Corpuscular Hemoglobin Concent 33.4 % Red Cell Distribution Width 15.9 % Platelet Count 352 TH/MM3 Mean Platelet Volume 7.2 FL Neutrophils (%) (Auto) 80.2 % Lymphocytes (%) (Auto) 8.2 % Monocytes (%) (Auto) 9.9 % Eosinophils (%) (Auto) 1.0 % Basophils (%) (Auto) 0.7 % Neutrophils # (Auto) 7.2 TH/MM3 Lymphocytes # (Auto) 0.7 TH/MM3 Monocytes # (Auto) 0.9 TH/MM3 Eosinophils # (Auto) 0.1 TH/MM3 Basophils # (Auto) 0.1 TH/MM3 CBC Comment DIFF FINAL Differential Comment Anion Gap 10 MEQ/L Estimat Glomerular Filtration Rate 78 ML/MIN Test 06/22/17 05:30 06/22/17 11:23 Prothrombin Time 20.4 SEC Prothromb Time International Ratio 1.8 RATIO Activated Partial Thromboplast Time 54.8 SEC Objective Remarks GENERAL: No acute distress. SKIN: Skin/dry. ENT: Oral cavity is moist NECK: Trachea midline. Supple. CARDIOVASCULAR: Remains in atrial fibrillation, rate well controlled in 80 - 90. Systolic murmur over apex and LSB. RESPIRATORY: Air entry equal bilaterally slightly diminished at the bases. Right chest tube site without drainage GASTROINTESTINAL: Abdomen Soft, no guarding. BS active. MUSCULOSKELETAL: New right IJ CVL. Limbs well perfused. 1+ Pedal edema NEUROLOGICAL: Follows commands. Awake, following commands x 4. RASS -0. Medications and IVs Current Medications Medications (Trade) Dose Ordered Sig/Padmini Route Start Time Stop Time Status Last Admin (Peridex 0.12% Liq) 15 ml BID@08,20 MT 06/03/17 20:00 06/17/17 08:00 (Duoneb Neb) 1 ampule Q2HR NEB PRN NEB 06/03/17 19:00 06/15/17 19:56 (Protonix Inj) 40 mg Q12H IV PUSH 06/03/17 20:00 06/22/17 08:47 Potassium Chloride 100 ml @ 50 mls/hr Q2H PRN IV 06/03/17 19:15 06/09/17 08:04 Potassium Chloride 100 ml @ 50 mls/hr Q2H PRN IV 06/03/17 19:15 (K-Lyte Cl Eff) 50 meq UNSCH PRN PO 06/03/17 19:15 Potassium Chloride 100 ml @ 25 mls/hr UNSCH PRN IV 06/03/17 19:15 06/06/17 18:46 Potassium Chloride 100 ml @ 50 mls/hr Q2H PRN IV 06/03/17 19:15 06/13/17 08:23 Magnesium Sulfate 4 gm/Sodium Chloride 100 ml @ 50 mls/hr UNSCH PRN IV 06/03/17 19:15 (Mag-Ox) 800 mg UNSCH PRN PO 06/03/17 19:15 Magnesium Sulfate 2 gm/Sodium Chloride 100 ml @ 50 mls/hr UNSCH PRN IV 06/03/17 19:15 06/04/17 16:45 (K-Phos) 2,000 mg Q4H PRN PO 06/03/17 19:15 Sodium Phosphate 30 mmol/Sodium Chloride 250 ml @ 42 mls/hr UNSCH PRN IV 06/03/17 19:15 (K-Phos) 2,000 mg UNSCH PRN PO/TUBE 06/03/17 19:15 Potassium Phosphate 30 mmol/ Sodium Chloride 260 ml @ 42 mls/hr UNSCH PRN IV 06/03/17 19:15 06/13/17 12:03 (D50w (Vial) Inj) 50 ml UNSCH PRN IV PUSH 06/04/17 12:15 (Glucagon Inj) 1 mg UNSCH PRN OTHER 06/04/17 12:15 (Lopressor Inj) 1.25 mg Q6H PRN IV PUSH 06/04/17 19:15 06/06/17 20:29 (Colace Liq) 100 mg Q12HR PO 06/05/17 14:00 06/21/17 22:34 (K-Lyte Cl Eff) 25 meq Q12HR PO 06/05/17 14:00 06/22/17 08:46 (Lanoxin) 0.125 mg DAILY PO 06/06/17 09:00 06/22/17 09:00 (Lopressor) 25 mg Q8HR PO 06/07/17 14:00 06/22/17 05:37 (Cozaar) 50 mg DAILY PO 06/07/17 09:00 06/22/17 08:47 (Apresoline Inj) 20 mg Q4H PRN IV PUSH 06/07/17 08:00 06/14/17 01:21 (Synthroid) 50 mcg DAILY@0600 PO 06/07/17 08:00 06/22/17 05:37 (Promacta) 25 mg DAILY@1000 PO 06/08/17 10:00 06/22/17 08:47 (Heparin Inj) 5,000 units UNSCH PRN IV PUSH 06/07/17 22:00 (Heparin Inj) 2,500 units UNSCH PRN IV PUSH 06/07/17 22:00 (Pill Splitter) 1 ea UNSCH PRN OTHER 06/07/17 22:15 (NovoLOG SUPPLEMENTAL SCALE) 1 BID@0800,2000 SQ 06/08/17 20:00 06/15/17 08:43 (Mycostatin Liq) 5 ml QID SWISH-SWAL 06/12/17 13:00 06/22/17 08:46 (Cardizem) 60 mg Q6HR PO 06/13/17 12:00 06/22/17 11:20 Heparin Sodium/ Dextrose 250 ml @ 11 mls/hr TITRATE IV 06/16/17 07:30 06/21/17 12:07 (Pulmicort Respule Neb) 0.5 mg Q12HR NEB NEB 06/16/17 11:15 06/22/17 10:59 (Tylenol 650 Mg/ 20 ml Liq) 650 mg Q6H PRN PO 06/18/17 06:30 06/22/17 08:46 (Lasix Inj) 20 mg Q12H IV PUSH 06/19/17 09:00 06/22/17 09:00 (Levaquin) 500 mg DAILY PO 06/19/17 09:00 06/22/17 08:46 (Coumadin) 3 mg DAILY@16 PO 06/19/17 16:00 06/21/17 15:11 (Zyvox) 600 mg Q12HR PO 06/19/17 21:00 06/22/17 08:47 Pharmacy Profile Note 0 ml @ 0 mls/hr UNSCH OTHER 06/20/17 10:00 (Duoneb Neb) 1 ampule Q6HR NEB NEB 06/20/17 16:00 06/22/17 10:59 A/P Assessment and Plan This is a pleasant 89 y/o Female with Severe Aortic Stenosis, with complicated Pulmonary Artery Rupture while on right heart catheterization, traumatic pneumothorax secondary to Barotrauma, acute Hypoxic respiratory failure, MRSA Healthcare associated Pneumonia, volume overload. extubated 06/17/17. 1. Metabolic Encephalopathy Resolved, continue on hold Sertraline, has Tylenol PRN CT of the head and C-Spine negative for acute injury 2. Left Lower Pulmonary artery rupture with massive Hemorrhage/Acute Hypoxemic respiratory failure/MRSA Pneumonia Large Left Hemothorax status post IR chest tube placement, residual Left pneumo after evacuation Bilateral apical Pneumothorax Bilateral lower extremity DVT Bilateral Effusion Left greater than Right - s/p coil and Gelfoam closure of Left lower pulmonary artery (peripheral small branch) by Rhoda Corrales and Michaela (see resuscitation note on 06/03/17) - Extubated 06/16/17, tolerating well. (Required re-intubation 06/02 for hypoxemia) - Chest x-ray LLL pneumonia vs lung infarct. Sputum with MRSA. on Zyvox, Levaquin. CXR 06/20/17 slight increase in L effusion - s/p chest tube x2 for right pneumothorax on 06/03. New apical chest tube placed 06/06/17 - IR, placed 24 F Left chest tube 06/05 with drainage of 2 L hemothorax, residual pneumothorax present, now resolved - CXR 06/07, resolution of right improving subcutaneous emphysema. Small residual left apical pneumo - s/p Bronchoscopy with removal of blood predominantly from L lung, s/p repeat bronch 06/06, 10/29 - DuoNeb q 6hours and PRN. INH Budesonide, Single dose of Decadron 6 mg IV x1 06/17 - Venous duplex -bilateral lower extremity DVT. IV heparin started 06/07/17 therapeutic. Coumadin started 06/19 - Removed R chest tube 06/19 3. Hemorrhagic shock Resolved Bilateral Lower extremity DVT/Anemia requiring transfusion/Sever Aortic Stenosis/Atrial Fibrillation with RVR/Possible history of ITP - IV heparin started 06/07/17 for bilateral lower extremity DVT and atrial fibrillation, on coumadin since 06/19 - Continue home Cardizem CD 120 mg daily. - Cleviprex, when necessary hydralazine (well beta blocked) to keep systolic blood pressure less than 150 - Continue IV Lasix, 20 mg IV q12. Home metoprolol at 25 mg by mouth every 8 hours. Home dose of digoxin - On Multaq at home. Defer to Dr. Corrales - Received 6 units of emergency release blood, 2 units of FFP and one of platelets 06/03/17. Multiple crystalloid boluses were given, PARVIN normal LV contractility, volume depletion - 2D Echo 06/04 RV LV function look normal, no PFO - Promacta for ITP - hydralazine 50mg po q8hr and losartan 100mg daily (06/09). now off cleviprex. 4. MRSA Pneumonia on Levaquin and Zyvox, 06/21 as per ID specialist Doctor Imelda recommended to continue Levaquin and Zyvox Oral for 7 to 10 days and follow CXR periodically and as clinically necessary, follow CBC and Platelet count, Bicarbonate while on Zyvox. She has Laboratory for today asked by Doctor Esquivel. not yet in EMR. PROPH: - DCd SCDs due to DVT. IV Protonix. IV heparin started 06/07, Warfarin by mouth not yet therapeutic INR. Discharge Planning as per Attending physician. Jamar Samuels MD Jun 22, 2017 13:35
[2017-06-22] MEDS: WARFARIN SOD 3 MG TAB PO SCH (16:26)
[2017-06-22 19:42] LABS: APTT (PATIENT) 53.1 SEC (24.3-30.1)
[2017-06-22] MEDS: ONDANSETRON HCL 4 MG/2 ML VIAL IV PUSH PRN (20:00)
[2017-06-23] VITALS (25 sets, daily range): BP systolic 123–174; BP diastolic 78–83; PULSE 74–117; RESP 16–20; TEMP 97.5–97.8; O2SAT 94–98
[2017-06-23] MEDS: DILTIAZEM HCL 60 MG TAB PO SCH ×4 (00:05→17:15)
[2017-06-23] MEDS: ONDANSETRON HCL 4 MG/2 ML VIAL IV PUSH PRN ×2 (02:23→08:40)
[2017-06-23 02:30] LABS: APTT (PATIENT) 56.7 SEC (24.3-30.1)
[2017-06-23] MEDS: RESP: ALBUTEROL 2.5 MG/IPRATROPIUM 0.5 MG NEB (SCH) NEB ×4 (03:33→20:18)
[2017-06-23] MEDS: HEPARIN 25,000 UNITS-D5W 250 ML - PREMIX IV SCH (04:01)
[2017-06-23 05:35] LABS: AUTOMATED NEUTROPHIL # 9.8 TH/MM3 (1.8-7.7); BASOPHIL # 0.1 TH/MM3 (0-0.2); BASOPHIL % 0.5 % (0.0-2.0); EOSINOPHIL # 0.1 TH/MM3 (0-0.4); EOSINOPHIL % 0.6 % (0.0-4.0); HEMO FLAGS DIFF FINAL; LYMPHOCYTE # 0.7 TH/MM3 (1.0-4.8); MEAN CELL VOLUME 88.2 FL (80.0-100.0); MEAN CORPUSCULAR HEMOGLOBIN 29.3 PG (27.0-34.0); MEAN CORPUSCULAR HGB CONC 33.2 % (32.0-36.0); MONO % 5.2 % (0.0-8.0); NEUT % 87.7 % (16.0-70.0); PLATELET COUNT 208 TH/MM3 (150-450); RED BLOOD COUNT 3.96 MIL/MM3 (4.00-5.30); RED CELL DISTRIBUTION WIDTH 16.5 % (11.6-17.2); WHITE BLOOD COUNT 11.1 TH/MM3 (4.0-11.0)
[2017-06-23 05:53] LABS: BICARBONATE 28.6 MEQ/L (21.0-32.0)
[2017-06-23] MEDS: LEVOTHYROXINE SODIUM 50 MCG TAB PO SCH (06:00)
[2017-06-23] MEDS: METOPROLOL TARTRATE 25 MG TAB PO SCH ×3 (06:00→23:38)
[2017-06-23] MEDS ORDERED: MAGNESIUM HYDROXIDE SUSP 30 ML CUP PO ONE (07:00)
[2017-06-23] MEDS: CHLORHEXIDINE 0.12% (ORAL KIT) 15 ML CUP MT SCH ×2 (08:00→20:00)
[2017-06-23] MEDS: INSULIN ASPART SUPPLEMENTAL SCALE SQ SCH ×2 (08:00→20:00)
[2017-06-23] MEDS: FUROSEMIDE 20 MG/2 ML VIAL IV PUSH SCH ×2 (09:00→23:38)
[2017-06-23] MEDS: DOCUSATE SODIUM 100 MG/10 ML UDC PO SCH ×2 (09:00→23:37)
--- NOTE | 2017-06-23 09:49 | PD.CARD.PN ---
Subjective Subjective Remarks Extubated No overnight events Moving all extremities afebrile Objective Medications Current Medications Medications (Trade) Dose Ordered Sig/Padmini Route Start Time Stop Time Status Last Admin (Peridex 0.12% Liq) 15 ml BID@08,20 MT 06/03/17 20:00 06/17/17 08:00 (Duoneb Neb) 1 ampule Q2HR NEB PRN NEB 06/03/17 19:00 06/15/17 19:56 (Protonix Inj) 40 mg Q12H IV PUSH 06/03/17 20:00 06/22/17 19:00 Potassium Chloride 100 ml @ 50 mls/hr Q2H PRN IV 06/03/17 19:15 06/09/17 08:04 Potassium Chloride 100 ml @ 50 mls/hr Q2H PRN IV 06/03/17 19:15 (K-Lyte Cl Eff) 50 meq UNSCH PRN PO 06/03/17 19:15 Potassium Chloride 100 ml @ 25 mls/hr UNSCH PRN IV 06/03/17 19:15 06/06/17 18:46 Potassium Chloride 100 ml @ 50 mls/hr Q2H PRN IV 06/03/17 19:15 06/13/17 08:23 Magnesium Sulfate 4 gm/Sodium Chloride 100 ml @ 50 mls/hr UNSCH PRN IV 06/03/17 19:15 (Mag-Ox) 800 mg UNSCH PRN PO 06/03/17 19:15 Magnesium Sulfate 2 gm/Sodium Chloride 100 ml @ 50 mls/hr UNSCH PRN IV 06/03/17 19:15 06/04/17 16:45 (K-Phos) 2,000 mg Q4H PRN PO 06/03/17 19:15 Sodium Phosphate 30 mmol/Sodium Chloride 250 ml @ 42 mls/hr UNSCH PRN IV 06/03/17 19:15 (K-Phos) 2,000 mg UNSCH PRN PO/TUBE 06/03/17 19:15 Potassium Phosphate 30 mmol/ Sodium Chloride 260 ml @ 42 mls/hr UNSCH PRN IV 06/03/17 19:15 06/13/17 12:03 (D50w (Vial) Inj) 50 ml UNSCH PRN IV PUSH 06/04/17 12:15 (Glucagon Inj) 1 mg UNSCH PRN OTHER 06/04/17 12:15 (Lopressor Inj) 1.25 mg Q6H PRN IV PUSH 06/04/17 19:15 06/06/17 20:29 (Colace Liq) 100 mg Q12HR PO 06/05/17 14:00 06/21/17 22:34 (K-Lyte Cl Eff) 25 meq Q12HR PO 06/05/17 14:00 06/22/17 08:46 (Lanoxin) 0.125 mg DAILY PO 06/06/17 09:00 06/22/17 09:00 (Lopressor) 25 mg Q8HR PO 06/07/17 14:00 06/22/17 22:06 (Cozaar) 50 mg DAILY PO 06/07/17 09:00 06/22/17 08:47 (Apresoline Inj) 20 mg Q4H PRN IV PUSH 06/07/17 08:00 06/14/17 01:21 (Synthroid) 50 mcg DAILY@0600 PO 06/07/17 08:00 06/22/17 05:37 (Promacta) 25 mg DAILY@1000 PO 06/08/17 10:00 06/22/17 08:47 (Heparin Inj) 5,000 units UNSCH PRN IV PUSH 06/07/17 22:00 (Heparin Inj) 2,500 units UNSCH PRN IV PUSH 06/07/17 22:00 (Pill Splitter) 1 ea UNSCH PRN OTHER 06/07/17 22:15 (NovoLOG SUPPLEMENTAL SCALE) 1 BID@0800,2000 SQ 06/08/17 20:00 06/15/17 08:43 (Mycostatin Liq) 5 ml QID SWISH-SWAL 06/12/17 13:00 06/22/17 17:58 (Cardizem) 60 mg Q6HR PO 06/13/17 12:00 06/23/17 00:05 Heparin Sodium/ Dextrose 250 ml @ 11 mls/hr TITRATE IV 06/16/17 07:30 06/23/17 04:01 (Pulmicort Respule Neb) 0.5 mg Q12HR NEB NEB 06/16/17 11:15 06/22/17 10:59 (Tylenol 650 Mg/ 20 ml Liq) 650 mg Q6H PRN PO 06/18/17 06:30 06/22/17 22:06 (Lasix Inj) 20 mg Q12H IV PUSH 06/19/17 09:00 06/22/17 21:59 (Levaquin) 500 mg DAILY PO 06/19/17 09:00 06/22/17 08:46 (Coumadin) 3 mg DAILY@16 PO 06/19/17 16:00 06/22/17 16:26 (Zyvox) 600 mg Q12HR PO 06/19/17 21:00 06/22/17 21:00 Pharmacy Profile Note 0 ml @ 0 mls/hr UNSCH OTHER 06/20/17 10:00 (Duoneb Neb) 1 ampule Q6HR NEB NEB 06/20/17 16:00 06/22/17 16:36 (Zofran Inj) 4 mg Q6H PRN IV PUSH 06/22/17 19:30 06/23/17 08:40 Vital Signs / I&O Vital Signs Date Time Temp Pulse Resp B/P (MAP) Pulse Ox O2 Delivery O2 Flow Rate FiO2 06/23/17 07:15 95 Nasal Cannula 2.00 06/23/17 07:15 97.8 84 16 174/81 (112) 95 06/23/17 06:00 78 06/23/17 05:00 83 06/23/17 04:00 74 06/23/17 03:00 95 Nasal Cannula 2.00 06/23/17 03:00 92 06/23/17 03:00 97.8 91 20 167/78 (107) 95 06/23/17 02:00 82 06/23/17 01:00 78 06/23/17 00:00 78 06/22/17 23:15 18 06/22/17 23:00 96 Nasal Cannula 2.00 06/22/17 23:00 97.6 79 16 147/63 (91) 96 06/22/17 23:00 76 06/22/17 22:00 78 06/22/17 21:09 95 06/22/17 21:00 76 06/22/17 20:00 84 06/22/17 19:00 97.8 87 16 135/64 (87) 94 06/22/17 19:00 88 06/22/17 19:00 94 Nasal Cannula 2.00 06/22/17 18:00 80 06/22/17 17:00 68 06/22/17 16:38 95 06/22/17 16:00 70 06/22/17 15:00 69 06/22/17 15:00 97.6 82 16 108/68 (81) 93 06/22/17 14:00 76 06/22/17 13:00 68 06/22/17 12:00 69 06/22/17 11:00 98.1 80 16 110/53 (72) 94 06/22/17 11:00 69 06/22/17 10:59 94 21 06/22/17 10:00 68 I/O 06/22/17 06/22/17 06/22/17 06/23/17 06/23/17 06/23/17 07:00 15:00 23:00 07:00 15:00 23:00 Intake Total 240 ml 54 ml 918 ml 141 ml Output Total 450 ml 200 ml Balance 240 ml 54 ml 468 ml -59 ml Intake Oral 240 ml 840 ml 75 ml IV Total 54 ml 78 ml 66 ml Output Urine Total 450 ml 200 ml # Voids 2 2 3 # Bowel Movements 0 Physical Exam GENERAL: Intubated, pupils reactive, Alert, awake, oriented SKIN: Warm and dry. HEAD: Normocephalic. EYES: No scleral icterus. No injection or drainage. NECK: Supple, trachea midline. No JVD or lymphadenopathy. CARDIOVASCULAR: Irr Irr 2/6SEM no gallops, or rubs. RESPIRATORY: Vented. GASTROINTESTINAL: Abdomen soft, non-tender, nondistended. EXTREMITIES: No cyanosis, or +edema. Laboratory Laboratory Tests Test 06/22/17 11:23 06/22/17 18:22 06/23/17 01:55 06/23/17 03:54 Activated Partial Thromboplast Time 54.8 SEC 53.1 SEC 56.7 SEC 59.0 SEC White Blood Count 11.1 TH/MM3 Red Blood Count 3.96 MIL/MM3 Hemoglobin 11.6 GM/DL Hematocrit 35.0 % Mean Corpuscular Volume 88.2 FL Mean Corpuscular Hemoglobin 29.3 PG Mean Corpuscular Hemoglobin Concent 33.2 % Red Cell Distribution Width 16.5 % Platelet Count 208 TH/MM3 Mean Platelet Volume 7.0 FL Neutrophils (%) (Auto) 87.7 % Lymphocytes (%) (Auto) 6.0 % Monocytes (%) (Auto) 5.2 % Eosinophils (%) (Auto) 0.6 % Basophils (%) (Auto) 0.5 % Neutrophils # (Auto) 9.8 TH/MM3 Lymphocytes # (Auto) 0.7 TH/MM3 Monocytes # (Auto) 0.6 TH/MM3 Eosinophils # (Auto) 0.1 TH/MM3 Basophils # (Auto) 0.1 TH/MM3 CBC Comment DIFF FINAL Differential Comment Blood Urea Nitrogen 26 MG/DL Creatinine 1.14 MG/DL Random Glucose 125 MG/DL Calcium Level 9.0 MG/DL Sodium Level 135 MEQ/L Potassium Level 4.0 MEQ/L Chloride Level 97 MEQ/L Carbon Dioxide Level 28.6 MEQ/L Anion Gap 9 MEQ/L Estimat Glomerular Filtration Rate 45 ML/MIN Assessment and Plan Problem List: (1) Shock, postoperative ICD Codes: T81.10XA - Postprocedural shock unspecified, initial encounter Status: Resolved Plan: WBC down. Afebrile Moving extremities, pupils reactive Recommendations: - Avoid electrolytes imbalance - Cont rate control for afib - Coumadin (H&H stable). Goal INR 2-3 - Out o bed to chair - PT/OT - CM for Rehab (2) Pulmonary arterial thrombosis ICD Codes: I26.99 - Other pulmonary embolism without acute cor pulmonale Status: Acute (3) CAD (coronary artery disease) ICD Codes: I25.10 - Atherosclerotic heart disease of [place] coronary artery without angina pectoris (4) Aortic stenosis ICD Codes: I35.0 - Nonrheumatic aortic (valve) stenosis (5) DVT (deep venous thrombosis) ICD Codes: I82.409 - Acute embolism and thrombosis of unspecified deep veins of unspecified lower extremity Brad Page MD Jun 23, 2017 09:49
[2017-06-23] MEDS: PANTOPRAZOLE SODIUM 40 MG VIAL IV PUSH SCH (10:03)
[2017-06-23] MEDS: LEVOFLOXACIN 500 MG TAB PO SCH (10:04)
[2017-06-23] MEDS: POTASSIUM CHLORIDE 25 MEQ EFFERVESCENT TAB PO SCH ×2 (10:04→23:38)
[2017-06-23] MEDS: DIGOXIN 0.125 MG TAB PO SCH (10:04)
[2017-06-23] MEDS: LOSARTAN 50 MG TAB PO SCH (10:04)
[2017-06-23] MEDS: LINEZOLID 600 MG TAB PO SCH ×2 (10:04→23:37)
[2017-06-23] MEDS: NYSTATIN SUSP 500,000 U/5 ML CUP SWISH-SWAL SCH ×4 (10:04→23:37)
[2017-06-23] MEDS: ELTROMBOPAG 50 MG TAB PO SCH (10:05)
[2017-06-23] MEDS: guaiFENesin E.R. 600 MG TAB PO SCH ×2 (10:15→23:38)
[2017-06-23] MEDS: RESP: BUDESONIDE 0.5 MG/2 ML NEB NEB SCH ×2 (10:27→20:00)
[2017-06-23 10:44] LABS: PROTHROMBIN TIME - PATIENT 34.7 SEC (9.8-11.6)
--- NOTE | 2017-06-23 12:06 | RADRPT ---
EXAM DATE/TIME: 06/23/2017 11:33 [facility] COMPARISON: No previous studies available for comparison. INDICATIONS : Distention. MEDICAL HISTORY : Congestive heart failure. Hypertension Carcinoma, colon. SURGICAL HISTORY : Pacemaker. ENCOUNTER: Initial ACUITY: 2 weeks PAIN SCORE: Non-responsive. LOCATION: Bilateral abdomen FINDINGS: Supine view of the abdomen was performed. The abdominal bowel gas pattern is nonspecific. There are some air-filled mildly dilated loops of small and nondilated large bowel. There is stool in the colon . Stool and air can be traced all the way to the rectum. There is also air in the stomach. There are degenerative changes of the lumbar spine and pelvis. CONCLUSION: Nonspecific bowel gas pattern with some air-filled loops of mildly dilated small bowel and nondilated colon. This may be an ileus. Aleksey Au MD on June 23, 2017 at 12:01 Board Certified Radiologist. This report was verified electronically.
--- NOTE | 2017-06-23 13:42 | HHI.PR ---
Subjective Remarks Patient transferred from feather washer management to hospitalist group Wheel Cutter Notes: I was emergently called to public works laborer by Dr. Corrales. Ms. Mahoney who is 89 yo female with history of severe aortic stenosis was undergoing left and right heart catheter for TAVR evaluation. With right heart catheterization patient developed acute massive hemoptysis with shock secondary to acute rupture of pulmonary artery. Patient was intubated by Dr. Potter and ETT was advance to Right lung for selective right lung ventilation due to massive hemorrhage from Left lung. On my arrival to public works laborer, patient was rapidly dropping blood pressure. Dopamine was already started. I ordered Shantanu-Synephrine, at 300 mcg/ m in an attempt to increase MAP and also increase the pulmonary vasoconstriction. Levophed was also added to maintain blood pressure and rapidly titrated up. Emergency release blood initially 3 units was ordered stat along with 2 units of FFP, 1 unit of platelet. I also emergently contacted Dr. Vásquez was in the office. (Dr. Bedoya the on-call CT surgeon was operating). While on Levophed Shantanu-Synephrine and dopamine, patient developed coarse V. fib/V. tach, received brief CPR, and was DC cardioverted 1 with return of spontaneous circulation and sinus rhythm. I discussed with Dr. Corrales and anesthesiologist, I also contacted Dr. Josue from invasive radiology.Dr. Josue immediately arrived to the public works laborer. Dr. Abdelrahman francis performed PARVIN which showed vigorous LV contraction but cavity was empty. Received Continuous massive fluid resuscitation with multiple crystalloid boluses, bicarbonate and calcium. Blood arrived and initially 3 units of PRBC, 2 units of 1 unit of platelets was given with calcium total 3 g given after blood transfusion. Because of persistent hypotension, additional 2 units of PRBC was given. While I resuscitated the patient, Dr. Corrales and Dr. Jennings performed right heart cath, identified bleeding of a small branch in the left pulmonary artery. They put put in 6 coils in the lower left lower pulmonary artery followed with Gelfoam closing the perforation. 06/04: Emergency chest 2 yesterday for right pneumothorax with hypotension and hypoxia. Remains intubated sedated and on Levophed. FiO2 remains at 100%, Sat improving to 94-95 %. UO adequate overnight. 2-D echo on my review normal LV and RV function, no PFO on bubble study 06/05: Patient is in atrial fibrillation currently on Cardene infusion for blood pressure control. Chest x-ray shows percutaneous emphysema and small apical pneumothorax. Remains on 80% FiO2. I discussed with interventional radiology. We will attempt CT-guided repositioning of the pigtail catheter and possibly upgrading to a larger tube. Urine output adequate 750 mL in 24 hours 06/06: Currently remains in A. fib with rate controlled, hypertensive on Cardizem drip. Oxygen saturation has improved FiO2 now to 40% with saturation 97%. Urine output excellent with Lasix 4.5 L in 24 hours. Chest x-ray today shows 2.5 cm bilateral apical pneumothorax, also left side has 1.2 cm lateral pneumothorax 06/07: Intubated, on low dose propofol for ventilator synchrony. FiO2 40% oxygen saturation 99%. Chest x-ray and labs pending urine output 2.7 L. 3 chest tubes with no air leak. If neuro exam not improving off sedation will check CT of the head. Currently on propofol will foreign exchange trader to Precedex to initiate weaning trials. On weaning doses of inhaled Flolan currently on 30, 000 ng 06/08: Remains intubated, mild sedation with Precedex. Overnight FiO2 increased to 65% for hypoxia. CXR left more than right consolidation of lower lobes. Sputum positive for MRSA on vancomycin. Bilateral lower extremity US studies yesterday showed DVT, initiated on IV heparin. Currently therapeutic on heparin. No evidence of pulmonary hemorrhage. Neuro exam is improving weekly follows commands all 4 extremities 06/09: remains intubated. failed CPAP yesterday. on Cleviprex and precedex. fio2 back to 40%. CXR improved aeration with the exception of known LLL. FC x 4. 06/10: failed SBT again for apnea. but much more awake. denies pain. ROS negative. off cleviprex. new air leak in chest tube. will get chest xray to re- eval. 06/11: Warm, well perfused. Alert, cooperative. Communicates with head nod, hand gestures. Comfortable respiratory pattern and acceptable excursions.Air leaks will seal when off positive pressure ventilation. FiO2 to 0.80 last night briefly; now 0.40. I'll come back later today and see if I can get her extubated. 06/12: Required re-intubation for hypoxemic respiratory failure last evening. She is now warm with well perfused fingers and toes. Low dose levophed not hampering peripheral perfusion. Mild prerenal azotemia. CXR with diffuse infiltrates as before. WBC 32,00, afebrile. Must assume colonized lungs at least. Antibiotic coverage is appropriate. Reculture sputum, urine. Progress to weaning trials daily.Hemodynamics appear excellent, rate a minor problem pretty well controlled. Continue Vanc. Stop pip/roxi, start cefepime. Narrow after cultures. Change CVLs, draw blood cultures. 06/13: Persistent leukocytosis, Tmax 100.2. O2 diffusion acceptable on positive pressure ventilation. Sputum culture pending. Remains warm and well perfused. Continue daily spontaneous breathing trials. 06/14: Bronch and BAL this morning by Dr. Muñoz. Gas exchange remains acceptable. Continue SBTs. 06/15: Looks great on SBTs/CPAP. She would benefit from a temporary tracheostomy. But she will eventually be off and extubated for good. C&S pending from BAL. Continue present abx regimen - discussed with Dr. Segura. 06/16: Awake alert following commands on vent. Currently on Precedex 0.5 g per KG per hour. Still has large amount of ETT secretions, but improving. R pigtail dislodged with turning, no pneumo on repeat CXR 06/17: Awake alert on low dose Precedex. Tolerated CPAP yesterday. Not extubated yesterday due copious bloody secretions. The chest x-ray shows some interval improvement and secretions slightly improved. Will proceed with SBT and possible extubation 06/18: Extubated yesterday tolerating very well. Coughing up sputum, cough seems adequate. Slight increase in WBC to 19.1. Received single dose of Decadron yesterday. Overall doing well communicating, no fever 06/19: WBC count slightly improved 17.9. Otherwise breathing comfortably. Single episode of delirium overnight. Will remove Payne today and also remove right chest tube 06/20: Up in chair, labs pending. CXR showing slight increase in L effusion. Will check bedside US. Hospitalist Notes: 06/21: Stable in her bedroom in sitting position eating her breakfast, no complaint, no nausea, vomit or diarrhea, on contact precautions, vital signs stable as per ID specialist Doctor Imelda recommended to continue Levaquin and Zyvox Oral for 7 to 10 days and follow CXR periodically and as clinically necessary, follow CBC and Platelet count, Bicarbonate while on Zyvox. 06/22: Seen in her bedroom and discussed with nurse Mr. Deleon, no nausea, vomit or diarrhea. working with PT. tomorrow will be followed by her Primary camouflage specialist and probable discharge to Rehab facility. 06/23: Seen in her bedroom in the presence of nurse Miss Crowley the patient today distended asked for KUB, that came positive for probable Ileus asked for GI specialist consult and started on IV fluids the patient is not able to take by mouth is been vomiting refusing medicines. Objective Vital Signs Date Time Temp Pulse Resp B/P (MAP) Pulse Ox O2 Delivery O2 Flow Rate FiO2 06/23/17 13:00 100 06/23/17 12:00 96 06/23/17 11:42 95 Nasal Cannula 2.00 06/23/17 11:19 97.5 117 18 123/80 (94) 96 06/23/17 11:00 110 06/23/17 10:32 95 Nasal Cannula 2.00 06/23/17 10:00 100 06/23/17 09:00 94 06/23/17 08:00 88 06/23/17 07:15 95 Nasal Cannula 2.00 06/23/17 07:15 97.8 84 16 174/81 (112) 95 06/23/17 07:00 86 06/23/17 06:00 78 06/23/17 05:00 83 06/23/17 04:00 74 06/23/17 03:00 95 Nasal Cannula 2.00 06/23/17 03:00 92 06/23/17 03:00 97.8 91 20 167/78 (107) 95 06/23/17 02:00 82 06/23/17 01:00 78 06/23/17 00:00 78 06/22/17 23:15 18 06/22/17 23:00 96 Nasal Cannula 2.00 06/22/17 23:00 97.6 79 16 147/63 (91) 96 06/22/17 23:00 76 06/22/17 22:00 78 06/22/17 21:09 95 06/22/17 21:00 76 06/22/17 20:00 84 06/22/17 19:00 97.8 87 16 135/64 (87) 94 06/22/17 19:00 88 06/22/17 19:00 94 Nasal Cannula 2.00 06/22/17 18:00 80 06/22/17 17:00 68 06/22/17 16:38 95 06/22/17 16:00 70 06/22/17 15:00 69 06/22/17 15:00 97.6 82 16 108/68 (81) 93 06/22/17 14:00 76 I/O 06/22/17 06/22/17 06/22/17 06/23/17 06/23/17 06/23/17 07:00 15:00 23:00 07:00 15:00 23:00 Intake Total 240 ml 54 ml 918 ml 141 ml Output Total 450 ml 200 ml Balance 240 ml 54 ml 468 ml -59 ml Intake Oral 240 ml 840 ml 75 ml IV Total 54 ml 78 ml 66 ml Output Urine Total 450 ml 200 ml # Voids 2 2 3 # Bowel Movements 0 Result Diagram: 06/23/17 0354 06/23/17 0354 Imaging Last Impressions Abdomen X-Ray 06/23/17 0000 Signed Impressions: Service Date/Time: Friday, June 23, 2017 11:33 - CONCLUSION: Nonspecific bowel gas pattern with some air-filled loops of mildly dilated small bowel and nondilated colon. This may be an ileus. Aleksey Au MD Chest X-Ray 06/21/17 0600 Signed Impressions: Service Date/Time: Wednesday, June 21, 2017 05:07 - CONCLUSION: Increased bilateral pulmonary opacity suggesting pulmonary edema. No change in bilateral pleural effusions. Pawan You MD Tunnelled Chest Tube Removal 06/13/17 0000 Signed Impressions: Service Date/Time: Tuesday, June 13, 2017 00:00 - CONCLUSION: Uncomplicated chest tube removal. Joselo Jennings MD Upper Extremity Ultrasound 06/07/17 0000 Signed Impressions: Service Date/Time: Wednesday, June 07, 2017 18:21 - CONCLUSION: 1. Limited exam but no deep venous thrombosis is identified bilaterally. Jamie Corrales MD Lower Extremity Ultrasound 06/07/17 0000 Signed Impressions: Service Date/Time: Wednesday, June 07, 2017 17:57 - CONCLUSION: 1. Positive bilateral lower extremity deep venous thrombosis, nonocclusive as above. Jamie Corrales MD Head CT 06/07/17 0000 Signed Impressions: Service Date/Time: Wednesday, June 07, 2017 17:01 - CONCLUSION: 1. No acute intracranial abnormality. 2. Extensive subcutaneous air tracking up from the chest. Luc Cain Jr., MD Cervical Spine CT 06/07/17 Signed Impressions: Service Date/Time: Wednesday, June 07, 2017 17:01 - CONCLUSION: 1. Extensive subcutaneous emphysema. 2. Tiny left apical pneumothorax. 3. Diffuse mild degenerative changes without central canal stenosis. Multilevel neural foraminal narrowing. 4. Prevertebral soft tissues obscured by an endotracheal tube and nasogastric tube. Luc Cain Jr., MD Chest Tube Insertion 06/05/17 Signed Impressions: Service Date/Time: May 09:15 - CONCLUSION: Uncomplicated chest tube placement as above. Maxwell Aldana MD Chest CT 06/05/17 Signed Impressions: Service Date/Time: May 08:47 - CONCLUSION: 1. Moderate left-sided hemothorax with associated left lower lobe consolidation which may reflect a combination of compressive atelectasis, aspiration, and potentially lung infarction given recent pulmonary artery embolization. 2. Trace right apical pneumothorax with large bore chest tube in the major fissure and smallbore chest tube in the soft tissues. Significant subcutaneous emphysema extending to the cervicothoracic junction bilaterally. 3. Airspace consolidation in the right lower lobe posteriorly may reflect aspiration. Maxwell Aldana MD Embolization 06/03/17 0000 Signed Impressions: Service Date/Time: Saturday, June 03, 2017 00:00 - CONCLUSION: Left pulmonary artery rupture with successful coil embolization of a lower lobe branch vessel as above. Joselo Jennings MD Other Results Laboratory Tests Test 06/03/17 18:10 06/04/17 04:15 06/05/17 10:15 06/07/17 06:48 Acanthocytes 1+ Nasal Screen MRSA (PCR) MRSA NOT DETECTED Fibrinogen 374 mg/dL Thyroid Stimulating Hormone 3rd Gen 2.470 uIU/ML Test 06/08/17 04:30 06/09/17 04:30 06/11/17 20:14 06/12/17 04:20 Myelocytes 1 % Ovalocytes 1+ Vancomycin Level Trough 25.5 MCG/ML Eosinophils % 1 % Metamyelocytes 1 % Digoxin Level 1.3 NG/ML Test 06/12/17 08:20 06/13/17 05:20 06/13/17 08:36 06/13/17 22:00 Urine Renal Epithelial Cells 1 /hpf Urine Yeast with Hyphae MANY Random Vancomycin Level 20.8 COMMENT Lactic Acid Level 1.3 mmol/L Direct Bilirubin 0.6 MG/DL Indirect Bilirubin 0.7 MG/DL C-Reactive Protein High Sensitivity 74.7 mg/L Lipase 183 U/L Urine Yeast (Budding) MANY Test 06/14/17 04:13 06/16/17 04:00 06/16/17 08:57 06/17/17 05:10 Differential Total Cells Counted 100 Neutrophils % (Manual) 90 % Band Neutrophils % 5 % Lymphocytes % 2 % Monocytes % 3 % Neutrophils # (Manual) 30.5 TH/MM3 Platelet Estimate NORMAL Platelet Morphology Comment NORMAL Red Cell Morphology Comment NORMAL B-Type Natriuretic Peptide 369 PG/ML Blood Gas Puncture Site RT RADIAL Blood Gas Patient Temperature 98.6 Blood Gas HCO3 27 mmol/L Blood Gas Base Excess 3.6 mmol/L Blood Gas Oxygen Saturation 97 % Arterial Blood pH 7.48 Arterial Blood Partial Pressure CO2 37 mmHg Arterial Blood Partial Pressure O2 137 mmHg Arterial Blood Oxygen Content 17.2 Vol % Arterial Blood Carboxyhemoglobin 1.3 % Arterial Blood Methemoglobin 1.2 % Blood Gas Hemoglobin 12.5 G/DL Oxygen Delivery Device VENTILATOR Blood Gas Ventilator Setting CPAPPEEP5/PS5 Blood Gas Inspired Oxygen 40 % Protein Corrected Calcium 8.5 MG/DL Blood Urea Nitrogen 31 MG/DL Creatinine 0.66 MG/DL Random Glucose 127 MG/DL Total Protein 5.1 GM/DL Albumin 1.5 GM/DL Calcium Level 7.4 MG/DL Phosphorus Level 3.1 MG/DL Magnesium Level 2.2 MG/DL Alkaline Phosphatase 154 U/L Aspartate Amino Transf (AST/SGOT) 35 U/L Alanine Aminotransferase (ALT/SGPT) 41 U/L Total Bilirubin 0.7 MG/DL Sodium Level 134 MEQ/L Potassium Level 4.1 MEQ/L Chloride Level 98 MEQ/L Carbon Dioxide Level 28.5 MEQ/L Test 06/19/17 03:51 06/19/17 06:45 06/20/17 10:58 06/21/17 09:03 Hematology Comments Urine Color YELLOW Urine Turbidity CLEAR Urine pH 6.0 Urine Specific [place] 1.017 Urine Protein TRACE mg/dL Urine Glucose (UA) NEG mg/dL Urine Ketones NEG mg/dL Urine Occult Blood NEG Urine Nitrite NEG Urine Bilirubin NEG Urine Urobilinogen LESS THAN 2.0 MG/DL Urine Leukocyte Esterase SMALL Urine RBC 1 /hpf Urine WBC 5 /hpf Urine WBC Clumps RARE Urine Squamous Epithelial Cells <1 /hpf Urine Bacteria RARE /hpf Urine Hyaline Casts 1 /lpf Urine Mucus FEW /lpf Microscopic Urinalysis Comment CATH-CULTURE IND Blood Urea Nitrogen 21 MG/DL 19 MG/DL Creatinine 0.75 MG/DL 0.71 MG/DL Random Glucose 108 MG/DL 90 MG/DL Total Protein 6.5 GM/DL 6.2 GM/DL Albumin 2.3 GM/DL 2.2 GM/DL Calcium Level 8.7 MG/DL 8.7 MG/DL Magnesium Level 2.3 MG/DL Alkaline Phosphatase 146 U/L 136 U/L Aspartate Amino Transf (AST/SGOT) 37 U/L 34 U/L Alanine Aminotransferase (ALT/SGPT) 46 U/L 40 U/L Total Bilirubin 0.7 MG/DL 0.7 MG/DL Sodium Level 137 MEQ/L 137 MEQ/L Potassium Level 4.1 MEQ/L 4.3 MEQ/L Chloride Level 96 MEQ/L 98 MEQ/L Carbon Dioxide Level 33.3 MEQ/L 29.2 MEQ/L Test 06/23/17 03:54 White Blood Count 11.1 TH/MM3 Red Blood Count 3.96 MIL/MM3 Hemoglobin 11.6 GM/DL Hematocrit 35.0 % Mean Corpuscular Volume 88.2 FL Mean Corpuscular Hemoglobin 29.3 PG Mean Corpuscular Hemoglobin Concent 33.2 % Red Cell Distribution Width 16.5 % Platelet Count 208 TH/MM3 Mean Platelet Volume 7.0 FL Neutrophils (%) (Auto) 87.7 % Lymphocytes (%) (Auto) 6.0 % Monocytes (%) (Auto) 5.2 % Eosinophils (%) (Auto) 0.6 % Basophils (%) (Auto) 0.5 % Neutrophils # (Auto) 9.8 TH/MM3 Lymphocytes # (Auto) 0.7 TH/MM3 Monocytes # (Auto) 0.6 TH/MM3 Eosinophils # (Auto) 0.1 TH/MM3 Basophils # (Auto) 0.1 TH/MM3 CBC Comment DIFF FINAL Differential Comment Prothrombin Time 34.7 SEC Prothromb Time International Ratio 3.0 RATIO Activated Partial Thromboplast Time 59.0 SEC Blood Urea Nitrogen 26 MG/DL Creatinine 1.14 MG/DL Random Glucose 125 MG/DL Calcium Level 9.0 MG/DL Sodium Level 135 MEQ/L Potassium Level 4.0 MEQ/L Chloride Level 97 MEQ/L Carbon Dioxide Level 28.6 MEQ/L Anion Gap 9 MEQ/L Estimat Glomerular Filtration Rate 45 ML/MIN Objective Remarks GENERAL: No acute distress. SKIN: Skin/dry. ENT: Oral cavity is moist NECK: Trachea midline. Supple. CARDIOVASCULAR: Remains in atrial fibrillation, rate well controlled in 80 - 90. Systolic murmur over apex and LSB. RESPIRATORY: Air entry equal bilaterally slightly diminished at the bases. Right chest tube site without drainage GASTROINTESTINAL: Distended. MUSCULOSKELETAL: New right IJ CVL. Limbs well perfused. 1+ Pedal edema NEUROLOGICAL: Follows commands. Awake, following commands x 4. RASS -0. Medications and IVs Current Medications Medications (Trade) Dose Ordered Sig/Padmini Route Start Time Stop Time Status Last Admin (Peridex 0.12% Liq) 15 ml BID@08,20 MT 06/03/17 20:00 06/17/17 08:00 (Duoneb Neb) 1 ampule Q2HR NEB PRN NEB 06/03/17 19:00 06/15/17 19:56 (Protonix Inj) 40 mg Q12H IV PUSH 06/03/17 20:00 06/23/17 10:03 Potassium Chloride 100 ml @ 50 mls/hr Q2H PRN IV 06/03/17 19:15 06/09/17 08:04 Potassium Chloride 100 ml @ 50 mls/hr Q2H PRN IV 06/03/17 19:15 (K-Lyte Cl Eff) 50 meq UNSCH PRN PO 06/03/17 19:15 Potassium Chloride 100 ml @ 25 mls/hr UNSCH PRN IV 06/03/17 19:15 06/06/17 18:46 Potassium Chloride 100 ml @ 50 mls/hr Q2H PRN IV 06/03/17 19:15 06/13/17 08:23 Magnesium Sulfate 4 gm/Sodium Chloride 100 ml @ 50 mls/hr UNSCH PRN IV 06/03/17 19:15 (Mag-Ox) 800 mg UNSCH PRN PO 06/03/17 19:15 Magnesium Sulfate 2 gm/Sodium Chloride 100 ml @ 50 mls/hr UNSCH PRN IV 06/03/17 19:15 06/04/17 16:45 (K-Phos) 2,000 mg Q4H PRN PO 06/03/17 19:15 Sodium Phosphate 30 mmol/Sodium Chloride 250 ml @ 42 mls/hr UNSCH PRN IV 06/03/17 19:15 (K-Phos) 2,000 mg UNSCH PRN PO/TUBE 06/03/17 19:15 Potassium Phosphate 30 mmol/ Sodium Chloride 260 ml @ 42 mls/hr UNSCH PRN IV 06/03/17 19:15 06/13/17 12:03 (D50w (Vial) Inj) 50 ml UNSCH PRN IV PUSH 06/04/17 12:15 (Glucagon Inj) 1 mg UNSCH PRN OTHER 06/04/17 12:15 (Lopressor Inj) 1.25 mg Q6H PRN IV PUSH 06/04/17 19:15 06/06/17 20:29 (Colace Liq) 100 mg Q12HR PO 06/05/17 14:00 06/23/17 09:00 (K-Lyte Cl Eff) 25 meq Q12HR PO 06/05/17 14:00 06/23/17 10:04 (Lanoxin) 0.125 mg DAILY PO 06/06/17 09:00 06/23/17 10:04 (Lopressor) 25 mg Q8HR PO 06/07/17 14:00 06/22/17 22:06 (Cozaar) 50 mg DAILY PO 06/07/17 09:00 06/23/17 10:04 (Apresoline Inj) 20 mg Q4H PRN IV PUSH 06/07/17 08:00 06/14/17 01:21 (Synthroid) 50 mcg DAILY@0600 PO 06/07/17 08:00 06/22/17 05:37 (Promacta) 25 mg DAILY@1000 PO 06/08/17 10:00 06/23/17 10:05 (Pill Splitter) 1 ea UNSCH PRN OTHER 06/07/17 22:15 (NovoLOG SUPPLEMENTAL SCALE) 1 BID@0800,2000 SQ 06/08/17 20:00 06/15/17 08:43 (Mycostatin Liq) 5 ml QID SWISH-SWAL 06/12/17 13:00 06/23/17 10:04 (Pulmicort Respule Neb) 0.5 mg Q12HR NEB NEB 06/16/17 11:15 06/23/17 10:27 (Tylenol 650 Mg/ 20 ml Liq) 650 mg Q6H PRN PO 06/18/17 06:30 06/22/17 22:06 (Lasix Inj) 20 mg Q12H IV PUSH 06/19/17 09:00 06/23/17 09:00 (Coumadin) 3 mg DAILY@16 PO 06/19/17 16:00 06/22/17 16:26 (Zyvox) 600 mg Q12HR PO 06/19/17 21:00 06/23/17 10:04 Pharmacy Profile Note 0 ml @ 0 mls/hr UNSCH OTHER 06/20/17 10:00 (Duoneb Neb) 1 ampule Q6HR NEB NEB 06/20/17 16:00 06/23/17 10:27 (Zofran Inj) 4 mg Q6H PRN IV PUSH 06/22/17 19:30 06/23/17 08:40 (Cardizem) 90 mg Q6HR PO 06/23/17 12:00 06/23/17 11:22 (Mucinex Er) 600 mg BID PO 06/23/17 10:15 06/23/17 10:15 (Levaquin) 250 mg Q24H PO 06/24/17 09:00 A/P Assessment and Plan This is a pleasant 89 y/o Female with Severe Aortic Stenosis, with complicated Pulmonary Artery Rupture while on right heart catheterization, traumatic pneumothorax secondary to Barotrauma, acute Hypoxic respiratory failure, MRSA Healthcare associated Pneumonia, volume overload. extubated 06/17/17. 1. Metabolic Encephalopathy Resolved, continue on hold Sertraline, has Tylenol PRN CT of the head and C-Spine negative for acute injury 2. Left Lower Pulmonary artery rupture with massive Hemorrhage/Acute Hypoxemic respiratory failure/MRSA Pneumonia Large Left Hemothorax status post IR chest tube placement, residual Left pneumo after evacuation Bilateral apical Pneumothorax Bilateral lower extremity DVT Bilateral Effusion Left greater than Right - s/p coil and Gelfoam closure of Left lower pulmonary artery (peripheral small branch) by Rhoda Corrales and Michaela (see resuscitation note on 06/03/17) - Extubated 06/16/17, tolerating well. (Required re-intubation 06/02 for hypoxemia) - Chest x-ray LLL pneumonia vs lung infarct. Sputum with MRSA. on Zyvox, Levaquin. CXR 06/20/17 slight increase in L effusion - s/p chest tube x2 for right pneumothorax on 06/03. New apical chest tube placed 06/06/17 - IR, placed 24 F Left chest tube 06/05 with drainage of 2 L hemothorax, residual pneumothorax present, now resolved - CXR 06/07, resolution of right improving subcutaneous emphysema. Small residual left apical pneumo - s/p Bronchoscopy with removal of blood predominantly from L lung, s/p repeat bronch 06/06, 06/15 - DuoNeb q 6hours and PRN. INH Budesonide, Single dose of Decadron 6 mg IV x1 06/17 - Venous duplex -bilateral lower extremity DVT. IV heparin started 06/07/17 therapeutic. Coumadin started 06/19 - Removed R chest tube 06/19 3. Hemorrhagic shock Resolved Bilateral Lower extremity DVT/Anemia requiring transfusion/Sever Aortic Stenosis/Atrial Fibrillation with RVR/Possible history of ITP - IV heparin started 06/07/17 for bilateral lower extremity DVT and atrial fibrillation, on coumadin since 06/19 - Continue home Cardizem CD 120 mg daily. - Cleviprex, when necessary hydralazine (well beta blocked) to keep systolic blood pressure less than 150 - Continue IV Lasix, 20 mg IV q12. Home metoprolol at 25 mg by mouth every 8 hours. Home dose of digoxin - On Multaq at home. Defer to Dr. Corrales - Received 6 units of emergency release blood, 2 units of FFP and one of platelets 06/03/17. Multiple crystalloid boluses were given, PARVIN normal LV contractility, volume depletion - 2D Echo 06/04 RV LV function look normal, no PFO - Promacta for ITP - hydralazine 50mg po q8hr and losartan 100mg daily (06/09). now off cleviprex. 4. MRSA Pneumonia on Levaquin and Zyvox, 06/21 as per ID specialist Doctor Imelda recommended to continue Levaquin and Zyvox Oral for 7 to 10 days and follow CXR periodically and as clinically necessary, follow CBC and Platelet count, Bicarbonate while on Zyvox. 5. Ileus today patient distended will continue IV fluids 84 ml per hour and follow, GI consult, KUB positive for Ileus. 6. Acute kidney injury the patient is not eating properly started IV fluids. Creatinine 1.18 PROPH: - DCd SCDs due to DVT. IV Protonix. IV heparin started 06/07, Warfarin by mouth not yet therapeutic INR 3 therapeutic. Discharge Planning as per Attending physician. Jamar Samuels MD Jun 23, 2017 13:42
[2017-06-23] MEDS: SODIUM CHLOR 0.9% 1000 ML INJ 1,000 ML IV SCH (13:45)
--- NOTE | 2017-06-23 17:26 | PD.CONS ---
HPI History of Present Illness This is a 89 year old female who presents with no BM in 3 days, n/v, abd distention. She was originally being evaluated for a TAVR and had pumonary artery rupture during cath procedure, required massive fluid resucitation, was intubated. She has since been extubated and was going to be discharged to rehab when she developed abd distention, n/v. KUB indicating ileus. (Fina Tavera) PFSH Past Medical History umbilical hernia "size of grapefruit" colon ca Aortic stenosis CHF Past Surgical History colectomy repair umbilical hernia (Fina Tavera) Coded Allergies: Sulfa (Sulfonamide Antibiotics) (Unverified Allergy, Severe, 06/03/17) promethazine (Unverified Allergy, Severe, 06/03/17) adhesive (Unverified Allergy, Unknown, 06/03/17) Family History heart disease Social History no toxic habits (Fina Tavera) Review of Systems Constitutional: COMPLAINS OF: Fatigue Eyes: DENIES: Blurred vision Ears, nose, mouth, throat: DENIES: Hearing loss Respiratory: DENIES: Hemoptysis Cardiovascular: DENIES: Chest pain Gastrointestinal: COMPLAINS OF: Abdominal pain, Constipation, Nausea, Vomiting , DENIES: Black stools, Bloody stools, Diarrhea Genitourinary: DENIES: Hematuria Musculoskeletal: DENIES: Joint Swelling Neurologic: DENIES: Headache Psychiatric: DENIES: Confusion (Fina Tavera) GI Exam Vitals I&O Vital Signs Date Time Temp Pulse Resp B/P (MAP) Pulse Ox O2 Delivery O2 Flow Rate FiO2 06/23/17 16:00 107 06/23/17 15:55 97.8 95 16 173/83 (113) 94 06/23/17 15:55 94 Nasal Cannula 2.00 06/23/17 15:00 87 06/23/17 14:00 83 06/23/17 13:00 100 06/23/17 12:00 96 06/23/17 11:42 95 Nasal Cannula 2.00 06/23/17 11:19 97.5 117 18 123/80 (94) 96 06/23/17 11:00 110 06/23/17 10:32 95 Nasal Cannula 2.00 06/23/17 10:00 100 06/23/17 09:00 94 06/23/17 08:00 88 06/23/17 07:15 95 Nasal Cannula 2.00 06/23/17 07:15 97.8 84 16 174/81 (112) 95 06/23/17 07:00 86 06/23/17 06:00 78 06/23/17 05:00 83 06/23/17 04:00 74 06/23/17 03:00 95 Nasal Cannula 2.00 06/23/17 03:00 92 06/23/17 03:00 97.8 91 20 167/78 (107) 95 06/23/17 02:00 82 06/23/17 01:00 78 06/23/17 00:00 78 06/22/17 23:15 18 06/22/17 23:00 96 Nasal Cannula 2.00 06/22/17 23:00 97.6 79 16 147/63 (91) 96 06/22/17 23:00 76 06/22/17 22:00 78 06/22/17 21:09 95 06/22/17 21:00 76 06/22/17 20:00 84 06/22/17 19:00 97.8 87 16 135/64 (87) 94 06/22/17 19:00 88 06/22/17 19:00 94 Nasal Cannula 2.00 06/22/17 18:00 80 I/O 06/22/17 06/22/17 06/22/17 06/23/17 06/23/17 06/23/17 07:00 15:00 23:00 07:00 15:00 23:00 Intake Total 240 ml 54 ml 918 ml 141 ml Output Total 450 ml 200 ml Balance 240 ml 54 ml 468 ml -59 ml Intake Oral 240 ml 840 ml 75 ml IV Total 54 ml 78 ml 66 ml Output Urine Total 450 ml 200 ml # Voids 2 2 3 # Bowel Movements 0 Laboratory Test 06/22/17 18:22 06/23/17 01:55 06/23/17 03:54 Activated Partial Thromboplast Time 53.1 SEC 56.7 SEC 59.0 SEC White Blood Count 11.1 TH/MM3 Red Blood Count 3.96 MIL/MM3 Hemoglobin 11.6 GM/DL Hematocrit 35.0 % Mean Corpuscular Volume 88.2 FL Mean Corpuscular Hemoglobin 29.3 PG Mean Corpuscular Hemoglobin Concent 33.2 % Red Cell Distribution Width 16.5 % Platelet Count 208 TH/MM3 Mean Platelet Volume 7.0 FL Neutrophils (%) (Auto) 87.7 % Lymphocytes (%) (Auto) 6.0 % Monocytes (%) (Auto) 5.2 % Eosinophils (%) (Auto) 0.6 % Basophils (%) (Auto) 0.5 % Neutrophils # (Auto) 9.8 TH/MM3 Lymphocytes # (Auto) 0.7 TH/MM3 Monocytes # (Auto) 0.6 TH/MM3 Eosinophils # (Auto) 0.1 TH/MM3 Basophils # (Auto) 0.1 TH/MM3 CBC Comment DIFF FINAL Differential Comment Prothrombin Time 34.7 SEC Prothromb Time International Ratio 3.0 RATIO Blood Urea Nitrogen 26 MG/DL Creatinine 1.14 MG/DL Random Glucose 125 MG/DL Calcium Level 9.0 MG/DL Sodium Level 135 MEQ/L Potassium Level 4.0 MEQ/L Chloride Level 97 MEQ/L Carbon Dioxide Level 28.6 MEQ/L Anion Gap 9 MEQ/L Estimat Glomerular Filtration Rate 45 ML/MIN Date/Time Source Procedure Growth Status 06/12/17 15:24 Blood Peripheral Aerobic Blood Culture - Final NO GROWTH IN 5 DAYS Complete 06/12/17 15:24 Blood Peripheral Anaerobic Blood Culture - Final NO GROWTH IN 5 DAYS Complete 06/09/17 09:45 Stool Stool Stool Occult Blood (KIM) - Final HEMOCCULT POSITIVE Complete 06/14/17 12:00 Bronchial Washings Left Lower Lobe Gram Stain - Final Complete 06/14/17 12:00 Bronchial Culture - Final S. Aureus Mrsa Complete 06/19/17 06:45 Urine Catheterized Urine Urine Culture - Final NO GROWTH IN 48 HOURS. Complete 06/12/17 13:20 Catheter Tip Central Venous Line Wound Culture - Final NO GROWTH IN 48 HOURS. Complete Physical Examination HEENT: PERRL; normocephalic; atraumatic; no jaundice. CHEST: CTA CARDIAC: RRR ABDOMEN: semifirm, distended, tympanitic, diffusely TTP; no hepatosplenomegaly; bowel sounds faint EXTREMITIES: No clubbing, cyanosis, or edema. SKIN: Normal; no rash; no jaundice. [employer]: alert and oriented, weak. (Fina Tavera) Assessment and Plan Plan ASSESSMENT - abd distention, n/v - prob ileus. no BM 3 d. kub mild small bowel distention , air filled loops, prob ileus. PLAN - NGT to [facility] - NPO - SSE X 2 - 5mg reglan IV q8h - further recs to follow This pt seen by myself and Dr Licona and this note is written on his behalf (Fina Tavera) Physician Comments Seen and examined, plan as above. Will follow up with you. (Yoly Licona MD) Fina Tavera Jun 23, 2017 17:26 Yoly Licona MD Jun 23, 2017 17:58
[2017-06-23] MEDS: METOCLOPRAMIDE HCL 10 MG/2 ML VIAL IV PUSH SCH ×2 (17:57→23:39)
[2017-06-23] MEDS: hydrALAZINE HCL 20 MG/ML VIAL IV PUSH PRN (20:48)
[2017-06-24] VITALS (29 sets, daily range): BP systolic 123–189; BP diastolic 60–79; PULSE 71–106; RESP 16–18; TEMP 97.5–97.9; O2SAT 94–98
[2017-06-24] MEDS: SODIUM CHLOR 0.9% 1000 ML INJ 1,000 ML IV SCH ×2 (02:02→12:59)
[2017-06-24] MEDS: RESP: ALBUTEROL 2.5 MG/IPRATROPIUM 0.5 MG NEB (SCH) NEB ×2 (04:11→10:13)
[2017-06-24 05:46] LABS: AUTOMATED NEUTROPHIL # 6.9 TH/MM3 (1.8-7.7); BASOPHIL % 0.4 % (0.0-2.0); EOSINOPHIL % 0.1 % (0.0-4.0); HEMATOCRIT 32.9 % (35.0-46.0); HEMO FLAGS DIFF FINAL; LYMPH % 6.2 % (9.0-44.0); LYMPHOCYTE # 0.5 TH/MM3 (1.0-4.8); MEAN CELL VOLUME 88.4 FL (80.0-100.0); MEAN CORPUSCULAR HEMOGLOBIN 30.2 PG (27.0-34.0); MEAN CORPUSCULAR HGB CONC 34.2 % (32.0-36.0); MONO % 5.4 % (0.0-8.0); NEUT % 87.9 % (16.0-70.0); PLATELET COUNT 122 TH/MM3 (150-450); RED BLOOD COUNT 3.72 MIL/MM3 (4.00-5.30); RED CELL DISTRIBUTION WIDTH 16.6 % (11.6-17.2); WHITE BLOOD COUNT 7.9 TH/MM3 (4.0-11.0)
[2017-06-24 05:49] LABS: APTT (PATIENT) 36.7 SEC (24.3-30.1); INTERNATIONAL NORMALIZED RATIO 3.5 RATIO; PROTHROMBIN TIME - PATIENT 40.6 SEC (9.8-11.6)
[2017-06-24 05:56] LABS: BICARBONATE 27.2 MEQ/L (21.0-32.0); MAGNESIUM 1.8 MG/DL (1.5-2.5)
[2017-06-24] MEDS: DILTIAZEM HCL 60 MG TAB PO SCH ×4 (06:00→17:21)
[2017-06-24] MEDS: METOPROLOL TARTRATE 25 MG TAB PO SCH ×3 (06:51→21:53)
[2017-06-24] MEDS: METOCLOPRAMIDE HCL 10 MG/2 ML VIAL IV PUSH SCH ×3 (06:52→21:52)
[2017-06-24] MEDS: LEVOTHYROXINE SODIUM 50 MCG TAB PO SCH (06:52)
[2017-06-24] MEDS: CHLORHEXIDINE 0.12% (ORAL KIT) 15 ML CUP MT SCH ×2 (08:00→20:00)
[2017-06-24] MEDS: INSULIN ASPART SUPPLEMENTAL SCALE SQ SCH ×2 (08:00→20:00)
[2017-06-24] MEDS: DIGOXIN 0.125 MG TAB PO SCH (09:09)
[2017-06-24] MEDS: DOCUSATE SODIUM 100 MG/10 ML UDC PO SCH ×2 (09:09→21:52)
[2017-06-24] MEDS: ELTROMBOPAG 50 MG TAB PO SCH (09:09)
[2017-06-24] MEDS: LOSARTAN 50 MG TAB PO SCH (09:09)
[2017-06-24] MEDS: NYSTATIN SUSP 500,000 U/5 ML CUP SWISH-SWAL SCH ×4 (09:09→21:52)
[2017-06-24] MEDS: LEVOFLOXACIN 250 MG TAB PO SCH (09:10)
[2017-06-24] MEDS: POTASSIUM CHLORIDE 25 MEQ EFFERVESCENT TAB PO SCH ×2 (09:10→21:52)
[2017-06-24] MEDS: PANTOPRAZOLE SODIUM 40 MG VIAL IV PUSH SCH (09:10)
[2017-06-24] MEDS: FUROSEMIDE 20 MG/2 ML VIAL IV PUSH SCH ×2 (09:10→21:53)
[2017-06-24] MEDS: guaiFENesin E.R. 600 MG TAB PO SCH ×2 (09:10→21:53)
--- NOTE | 2017-06-24 09:10 | PD.CARD.PN ---
Subjective Subjective Remarks Extubated No overnight events Moving all extremities afebrile Objective Medications Current Medications Medications (Trade) Dose Ordered Sig/Padmini Route Start Time Stop Time Status Last Admin (Peridex 0.12% Liq) 15 ml BID@08,20 MT 06/03/17 20:00 06/17/17 08:00 (Duoneb Neb) 1 ampule Q2HR NEB PRN NEB 06/03/17 19:00 06/15/17 19:56 (K-Lyte Cl Eff) 50 meq UNSCH PRN PO 06/03/17 19:15 (Mag-Ox) 800 mg UNSCH PRN PO 06/03/17 19:15 (K-Phos) 2,000 mg Q4H PRN PO 06/03/17 19:15 (K-Phos) 2,000 mg UNSCH PRN PO/TUBE 06/03/17 19:15 (D50w (Vial) Inj) 50 ml UNSCH PRN IV PUSH 06/04/17 12:15 (Glucagon Inj) 1 mg UNSCH PRN OTHER 06/04/17 12:15 (Lopressor Inj) 1.25 mg Q6H PRN IV PUSH 06/04/17 19:15 06/06/17 20:29 (Colace Liq) 100 mg Q12HR PO 06/05/17 14:00 06/23/17 23:37 (K-Lyte Cl Eff) 25 meq Q12HR PO 06/05/17 14:00 06/23/17 23:38 (Lanoxin) 0.125 mg DAILY PO 06/06/17 09:00 06/23/17 10:04 (Lopressor) 25 mg Q8HR PO 06/07/17 14:00 06/24/17 06:51 (Cozaar) 50 mg DAILY PO 06/07/17 09:00 06/23/17 10:04 (Apresoline Inj) 20 mg Q4H PRN IV PUSH 06/07/17 08:00 06/23/17 20:48 (Synthroid) 50 mcg DAILY@0600 PO 06/07/17 08:00 06/24/17 06:52 (Promacta) 25 mg DAILY@1000 PO 06/08/17 10:00 06/23/17 10:05 (Pill Splitter) 1 ea UNSCH PRN OTHER 06/07/17 22:15 (NovoLOG SUPPLEMENTAL SCALE) 1 BID@0800,2000 SQ 06/08/17 20:00 06/15/17 08:43 (Mycostatin Liq) 5 ml QID SWISH-SWAL 06/12/17 13:00 06/23/17 23:37 (Pulmicort Respule Neb) 0.5 mg Q12HR NEB NEB 06/16/17 11:15 06/23/17 10:27 (Tylenol 650 Mg/ 20 ml Liq) 650 mg Q6H PRN PO 06/18/17 06:30 06/22/17 22:06 (Lasix Inj) 20 mg Q12H IV PUSH 06/19/17 09:00 06/23/17 23:38 (Coumadin) 3 mg DAILY@16 PO 06/19/17 16:00 Future Hold 06/22/17 16:26 (Zyvox) 600 mg Q12HR PO 06/19/17 21:00 06/23/17 23:37 Pharmacy Profile Note 0 ml @ 0 mls/hr UNSCH OTHER 06/20/17 10:00 (Duoneb Neb) 1 ampule Q6HR NEB NEB 06/20/17 16:00 06/23/17 10:27 (Zofran Inj) 4 mg Q6H PRN IV PUSH 06/22/17 19:30 06/23/17 08:40 (Cardizem) 90 mg Q6HR PO 06/23/17 12:00 06/24/17 06:00 (Mucinex Er) 600 mg BID PO 06/23/17 10:15 06/23/17 23:38 (Levaquin) 250 mg Q24H PO 06/24/17 09:00 Sodium Chloride 1,000 ml @ 84 mls/hr [id number] IV 06/23/17 13:45 06/24/17 02:02 (Protonix Inj) 40 mg DAILY IV PUSH 06/24/17 09:00 07/17/17 09:00 (Reglan Inj) 5 mg Q8HR IV PUSH 06/23/17 17:45 06/24/17 06:52 Vital Signs / I&O Vital Signs Date Time Temp Pulse Resp B/P (MAP) Pulse Ox O2 Delivery O2 Flow Rate FiO2 06/24/17 07:15 97.7 78 18 168/75 (106) 96 06/24/17 07:15 96 Nasal Cannula 2.00 06/24/17 05:00 81 06/24/17 04:15 78 06/24/17 04:00 97.9 78 16 145/66 (92) 98 06/24/17 03:31 98 Nasal Cannula 2.00 06/24/17 03:00 83 06/24/17 02:00 73 06/24/17 01:00 76 06/24/17 00:00 98 Nasal Cannula 2.00 06/24/17 00:00 97.9 78 16 123/60 (81) 98 06/23/17 23:02 95 Nasal Cannula 2.00 06/23/17 20:45 97.7 75 16 163/82 (109) 98 06/23/17 20:00 98 Nasal Cannula 2.00 06/23/17 18:00 98 06/23/17 17:00 104 06/23/17 16:00 107 06/23/17 15:55 97.8 95 16 173/83 (113) 94 06/23/17 15:55 94 Nasal Cannula 2.00 06/23/17 15:00 87 06/23/17 14:00 83 06/23/17 13:00 100 06/23/17 12:00 96 06/23/17 11:42 95 Nasal Cannula 2.00 06/23/17 11:19 97.5 117 18 123/80 (94) 96 06/23/17 11:00 110 06/23/17 10:32 95 Nasal Cannula 2.00 06/23/17 10:00 100 I/O 06/23/17 06/23/17 06/23/17 06/24/17 06/24/17 06/24/17 07:00 15:00 23:00 07:00 15:00 23:00 Intake Total 141 ml 420 ml 0 ml Output Total 200 ml 10 ml 300 ml Balance -59 ml 410 ml -300 ml Intake Oral 75 ml 420 ml 0 ml IV Total 66 ml Output Urine Total 200 ml Gastric Drainage Total 10 ml 300 ml # Voids 3 3 2 Physical Exam GENERAL: Intubated, pupils reactive, Alert, awake, oriented SKIN: Warm and dry. HEAD: Normocephalic. EYES: No scleral icterus. No injection or drainage. NECK: Supple, trachea midline. No JVD or lymphadenopathy. CARDIOVASCULAR: Irr Irr 2/6SEM no gallops, or rubs. RESPIRATORY: Vented. GASTROINTESTINAL: Abdomen soft, non-tender, nondistended. EXTREMITIES: No cyanosis, or +edema. Laboratory Laboratory Tests Test 06/24/17 05:00 White Blood Count 7.9 TH/MM3 Red Blood Count 3.72 MIL/MM3 Hemoglobin 11.3 GM/DL Hematocrit 32.9 % Mean Corpuscular Volume 88.4 FL Mean Corpuscular Hemoglobin 30.2 PG Mean Corpuscular Hemoglobin Concent 34.2 % Red Cell Distribution Width 16.6 % Platelet Count 122 TH/MM3 Mean Platelet Volume 7.2 FL Neutrophils (%) (Auto) 87.9 % Lymphocytes (%) (Auto) 6.2 % Monocytes (%) (Auto) 5.4 % Eosinophils (%) (Auto) 0.1 % Basophils (%) (Auto) 0.4 % Neutrophils # (Auto) 6.9 TH/MM3 Lymphocytes # (Auto) 0.5 TH/MM3 Monocytes # (Auto) 0.4 TH/MM3 Eosinophils # (Auto) 0.0 TH/MM3 Basophils # (Auto) 0.0 TH/MM3 CBC Comment DIFF FINAL Differential Comment Prothrombin Time 40.6 SEC Prothromb Time International Ratio 3.5 RATIO Activated Partial Thromboplast Time 36.7 SEC Blood Urea Nitrogen 26 MG/DL Creatinine 0.83 MG/DL Random Glucose 102 MG/DL Calcium Level 8.6 MG/DL Phosphorus Level 3.4 MG/DL Magnesium Level 1.8 MG/DL Sodium Level 136 MEQ/L Potassium Level 4.0 MEQ/L Chloride Level 100 MEQ/L Carbon Dioxide Level 27.2 MEQ/L Anion Gap 9 MEQ/L Estimat Glomerular Filtration Rate 65 ML/MIN Assessment and Plan Problem List: (1) Shock, postoperative ICD Codes: T81.10XA - Postprocedural shock unspecified, initial encounter Status: Resolved Plan: Recommendations: - Avoid electrolytes imbalance - Cont rate control for afib - Coumadin (H&H stable). Goal INR 2-3 - Out o bed to chair - PT/OT - Stable from CV standpoin to d/c to Rehab (2) Pulmonary arterial thrombosis ICD Codes: I26.99 - Other pulmonary embolism without acute cor pulmonale Status: Acute (3) CAD (coronary artery disease) ICD Codes: I25.10 - Atherosclerotic heart disease of [place] coronary artery without angina pectoris (4) Aortic stenosis ICD Codes: I35.0 - Nonrheumatic aortic (valve) stenosis (5) DVT (deep venous thrombosis) ICD Codes: I82.409 - Acute embolism and thrombosis of unspecified deep veins of unspecified lower extremity Brad Page MD Jun 24, 2017 09:10
[2017-06-24] MEDS: LINEZOLID 600 MG TAB PO SCH ×2 (09:11→21:53)
[2017-06-24] MEDS: RESP: BUDESONIDE 0.5 MG/2 ML NEB NEB SCH ×2 (10:13→21:08)
--- NOTE | 2017-06-24 16:31 | HHI.PR ---
Subjective Remarks [employer] Notes: I was emergently called to rd lab technician by Dr. Corrales. Ms. Mahoney who is 89 yo female with history of severe aortic stenosis was undergoing left and right heart catheter for TAVR evaluation. With right heart catheterization patient developed acute massive hemoptysis with shock secondary to acute rupture of pulmonary artery. Patient was intubated by Dr. Potter and ETT was advance to Right lung for selective right lung ventilation due to massive hemorrhage from Left lung. On my arrival to rd lab technician, patient was rapidly dropping blood pressure. Dopamine was already started. I ordered Shantanu-Synephrine, at 300 mcg/ m in an attempt to increase MAP and also increase the pulmonary vasoconstriction. Levophed was also added to maintain blood pressure and rapidly titrated up. Emergency release blood initially 3 units was ordered stat along with 2 units of FFP, 1 unit of platelet. I also emergently contacted Dr. Vásquez was in the office. (Dr. Bedoya the on-call CT surgeon was operating). While on Levophed Shantanu-Synephrine and dopamine, patient developed coarse V. fib/V. tach, received brief CPR, and was DC cardioverted 1 with return of spontaneous circulation and sinus rhythm. I discussed with Dr. Corrales and anesthesiologist, I also contacted Dr. Josue from invasive radiology.Dr. Josue immediately arrived to the rd lab technician. Dr. Abdelrahman francis performed PARVIN which showed vigorous LV contraction but cavity was empty. Received Continuous massive fluid resuscitation with multiple crystalloid boluses, bicarbonate and calcium. Blood arrived and initially 3 units of PRBC, 2 units of 1 unit of platelets was given with calcium total 3 g given after blood transfusion. Because of persistent hypotension, additional 2 units of PRBC was given. While I resuscitated the patient, Dr. Corrales and Dr. Jennings performed right heart cath, identified bleeding of a small branch in the left pulmonary artery. They put put in 6 coils in the lower left lower pulmonary artery followed with Gelfoam closing the perforation. 06/04: Emergency chest 2 yesterday for right pneumothorax with hypotension and hypoxia. Remains intubated sedated and on Levophed. FiO2 remains at 100%, Sat improving to 94-95 %. UO adequate overnight. 2-D echo on my review normal LV and RV function, no PFO on bubble study 06/05: Patient is in atrial fibrillation currently on Cardene infusion for blood pressure control. Chest x-ray shows percutaneous emphysema and small apical pneumothorax. Remains on 80% FiO2. I discussed with interventional radiology. We will attempt CT-guided repositioning of the pigtail catheter and possibly upgrading to a larger tube. Urine output adequate 750 mL in 24 hours 06/06: Currently remains in A. fib with rate controlled, hypertensive on Cardizem drip. Oxygen saturation has improved FiO2 now to 40% with saturation 97%. Urine output excellent with Lasix 4.5 L in 24 hours. Chest x-ray today shows 2.5 cm bilateral apical pneumothorax, also left side has 1.2 cm lateral pneumothorax 06/07: Intubated, on low dose propofol for ventilator synchrony. FiO2 40% oxygen saturation 99%. Chest x-ray and labs pending urine output 2.7 L. 3 chest tubes with no air leak. If neuro exam not improving off sedation will check CT of the head. Currently on propofol will record changer to Precedex to initiate weaning trials. On weaning doses of inhaled Flolan currently on 30, 000 ng 06/08: Remains intubated, mild sedation with Precedex. Overnight FiO2 increased to 65% for hypoxia. CXR left more than right consolidation of lower lobes. Sputum positive for MRSA on vancomycin. Bilateral lower extremity US studies yesterday showed DVT, initiated on IV heparin. Currently therapeutic on heparin. No evidence of pulmonary hemorrhage. Neuro exam is improving weekly follows commands all 4 extremities 06/09: remains intubated. failed CPAP yesterday. on Cleviprex and precedex. fio2 back to 40%. CXR improved aeration with the exception of known LLL. FC x 4. 06/10: failed SBT again for apnea. but much more awake. denies pain. ROS negative. off cleviprex. new air leak in chest tube. will get chest xray to re- eval. 06/11: Warm, well perfused. Alert, cooperative. Communicates with head nod, hand gestures. Comfortable respiratory pattern and acceptable excursions.Air leaks will seal when off positive pressure ventilation. FiO2 to 0.80 last night briefly; now 0.40. I'll come back later today and see if I can get her extubated. 06/12: Required re-intubation for hypoxemic respiratory failure last evening. She is now warm with well perfused fingers and toes. Low dose levophed not hampering peripheral perfusion. Mild prerenal azotemia. CXR with diffuse infiltrates as before. WBC 32,00, afebrile. Must assume colonized lungs at least. Antibiotic coverage is appropriate. Reculture sputum, urine. Progress to weaning trials daily.Hemodynamics appear excellent, rate a minor problem pretty well controlled. Continue Vanc. Stop pip/roxi, start cefepime. Narrow after cultures. Change CVLs, draw blood cultures. 06/13: Persistent leukocytosis, Tmax 100.2. O2 diffusion acceptable on positive pressure ventilation. Sputum culture pending. Remains warm and well perfused. Continue daily spontaneous breathing trials. 06/14: Bronch and BAL this morning by Dr. Muñoz. Gas exchange remains acceptable. Continue SBTs. 06/15: Looks great on SBTs/CPAP. She would benefit from a temporary tracheostomy. But she will eventually be off and extubated for good. C&S pending from BAL. Continue present abx regimen - discussed with Dr. Segura. 06/16: Awake alert following commands on vent. Currently on Precedex 0.5 g per KG per hour. Still has large amount of ETT secretions, but improving. R pigtail dislodged with turning, no pneumo on repeat CXR 06/17: Awake alert on low dose Precedex. Tolerated CPAP yesterday. Not extubated yesterday due copious bloody secretions. The chest x-ray shows some interval improvement and secretions slightly improved. Will proceed with SBT and possible extubation 06/18: Extubated yesterday tolerating very well. Coughing up sputum, cough seems adequate. Slight increase in WBC to 19.1. Received single dose of Decadron yesterday. Overall doing well communicating, no fever 06/19: WBC count slightly improved 17.9. Otherwise breathing comfortably. Single episode of delirium overnight. Will remove Payne today and also remove right chest tube 06/20: Up in chair, labs pending. CXR showing slight increase in L effusion. Will check bedside US. Hospitalist Notes: 06/21: Stable in her bedroom in sitting position eating her breakfast, no complaint, no nausea, vomit or diarrhea, on contact precautions, vital signs stable as per ID specialist Doctor Imelda recommended to continue Levaquin and Zyvox Oral for 7 to 10 days and follow CXR periodically and as clinically necessary, follow CBC and Platelet count, Bicarbonate while on Zyvox. 06/22: Seen in her bedroom and discussed with nurse Mr. Deleon, no nausea, vomit or diarrhea. working with PT. tomorrow will be followed by her Primary disability specialist and probable discharge to Rehab facility. 06/23: Seen in her bedroom in the presence of nurse Miss Crowley the patient today distended asked for KUB, that came positive for probable Ileus asked for GI specialist consult and started on IV fluids the patient is not able to take by mouth is been vomiting refusing medicines. 06/24: Stable seen by GI specialist she continue with Abdominal distention, recommended to continue NG to LIWS, NPO, Metoclopramide Discussed with nurse Miss Crowley. Objective Vital Signs Date Time Temp Pulse Resp B/P (MAP) Pulse Ox O2 Delivery O2 Flow Rate FiO2 06/24/17 15:28 94 Nasal Cannula 2.00 06/24/17 15:28 97.6 81 16 151/70 (97) 94 06/24/17 15:00 73 06/24/17 14:00 74 06/24/17 13:00 100 06/24/17 12:00 97 06/24/17 11:22 97.5 96 16 144/69 (94) 95 06/24/17 11:22 95 Nasal Cannula 2.00 06/24/17 11:00 101 06/24/17 10:13 94 Nasal Cannula 2.00 06/24/17 10:00 92 06/24/17 09:00 72 06/24/17 08:00 74 06/24/17 07:15 97.7 78 18 168/75 (106) 96 06/24/17 07:15 96 Nasal Cannula 2.00 06/24/17 07:00 81 06/24/17 05:00 81 06/24/17 04:15 78 06/24/17 04:00 97.9 78 16 145/66 (92) 98 06/24/17 03:31 98 Nasal Cannula 2.00 06/24/17 03:00 83 06/24/17 02:00 73 06/24/17 01:00 76 06/24/17 00:00 98 Nasal Cannula 2.00 06/24/17 00:00 97.9 78 16 123/60 (81) 98 06/23/17 23:02 95 Nasal Cannula 2.00 06/23/17 20:45 97.7 75 16 163/82 (109) 98 06/23/17 20:00 98 Nasal Cannula 2.00 06/23/17 18:00 98 06/23/17 17:00 104 I/O 06/23/17 06/23/17 06/23/17 06/24/17 06/24/17 06/24/17 07:00 15:00 23:00 07:00 15:00 23:00 Intake Total 141 ml 420 ml 0 ml Output Total 200 ml 10 ml 300 ml Balance -59 ml 410 ml -300 ml Intake Oral 75 ml 420 ml 0 ml IV Total 66 ml Output Urine Total 200 ml Gastric Drainage Total 10 ml 300 ml # Voids 3 3 2 Result Diagram: 06/24/17 0500 06/24/17 0500 Imaging Last Impressions Abdomen X-Ray 06/23/17 0000 Signed Impressions: Service Date/Time: Friday, June 23, 2017 11:33 - CONCLUSION: Nonspecific bowel gas pattern with some air-filled loops of mildly dilated small bowel and nondilated colon. This may be an ileus. Aleksey Au MD Chest X-Ray 06/21/17 0600 Signed Impressions: Service Date/Time: Wednesday, June 21, 2017 05:07 - CONCLUSION: Increased bilateral pulmonary opacity suggesting pulmonary edema. No change in bilateral pleural effusions. Pawan You MD Tunnelled Chest Tube Removal 06/13/17 0000 Signed Impressions: Service Date/Time: Tuesday, June 13, 2017 00:00 - CONCLUSION: Uncomplicated chest tube removal. Joselo Jennings MD Upper Extremity Ultrasound 06/07/17 0000 Signed Impressions: Service Date/Time: Wednesday, June 07, 2017 18:21 - CONCLUSION: 1. Limited exam but no deep venous thrombosis is identified bilaterally. Jamie Corrales MD Lower Extremity Ultrasound 06/07/17 0000 Signed Impressions: Service Date/Time: Wednesday, June 07, 2017 17:57 - CONCLUSION: 1. Positive bilateral lower extremity deep venous thrombosis, nonocclusive as above. Jamie Corrales MD Head CT 06/07/17 0000 Signed Impressions: Service Date/Time: Wednesday, June 07, 2017 17:01 - CONCLUSION: 1. No acute intracranial abnormality. 2. Extensive subcutaneous air tracking up from the chest. Luc Cain Jr., MD Cervical Spine CT 06/07/17 0000 Signed Impressions: Service Date/Time: Wednesday, June 07, 2017 17:01 - CONCLUSION: 1. Extensive subcutaneous emphysema. 2. Tiny left apical pneumothorax. 3. Diffuse mild degenerative changes without central canal stenosis. Multilevel neural foraminal narrowing. 4. Prevertebral soft tissues obscured by an endotracheal tube and nasogastric tube. Luc Cain Jr., MD Chest Tube Insertion 06/05/17 0000 Signed Impressions: Service Date/Time: May 09:15 - CONCLUSION: Uncomplicated chest tube placement as above. Maxwell Aldana MD Chest CT 06/05/17 0000 Signed Impressions: Service Date/Time: May 08:47 - CONCLUSION: 1. Moderate left-sided hemothorax with associated left lower lobe consolidation which may reflect a combination of compressive atelectasis, aspiration, and potentially lung infarction given recent pulmonary artery embolization. 2. Trace right apical pneumothorax with large bore chest tube in the major fissure and smallbore chest tube in the soft tissues. Significant subcutaneous emphysema extending to the cervicothoracic junction bilaterally. 3. Airspace consolidation in the right lower lobe posteriorly may reflect aspiration. Maxwell Aldana MD Embolization 06/03/17 0000 Signed Impressions: Service Date/Time: Saturday, June 03, 2017 00:00 - CONCLUSION: Left pulmonary artery rupture with successful coil embolization of a lower lobe branch vessel as above. Joselo Jennings MD Other Results Laboratory Tests Test 06/03/17 18:10 06/04/17 04:15 06/05/17 10:15 06/07/17 06:48 Acanthocytes 1+ Nasal Screen MRSA (PCR) MRSA NOT DETECTED Fibrinogen 374 mg/dL Thyroid Stimulating Hormone 3rd Gen 2.470 uIU/ML Test 06/08/17 04:30 06/09/17 04:30 06/11/17 20:14 06/12/17 04:20 Myelocytes 1 % Ovalocytes 1+ Vancomycin Level Trough 25.5 MCG/ML Eosinophils % 1 % Metamyelocytes 1 % Digoxin Level 1.3 NG/ML Test 06/12/17 08:20 06/13/17 05:20 06/13/17 08:36 06/13/17 22:00 Urine Renal Epithelial Cells 1 /hpf Urine Yeast with Hyphae MANY Random Vancomycin Level 20.8 COMMENT Lactic Acid Level 1.3 mmol/L Direct Bilirubin 0.6 MG/DL Indirect Bilirubin 0.7 MG/DL C-Reactive Protein High Sensitivity 74.7 mg/L Lipase 183 U/L Urine Yeast (Budding) MANY Test 06/14/17 04:13 06/16/17 04:00 06/16/17 08:57 06/17/17 05:10 Differential Total Cells Counted 100 Neutrophils % (Manual) 90 % Band Neutrophils % 5 % Lymphocytes % 2 % Monocytes % 3 % Neutrophils # (Manual) 30.5 TH/MM3 Platelet Estimate NORMAL Platelet Morphology Comment NORMAL Red Cell Morphology Comment NORMAL B-Type Natriuretic Peptide 369 PG/ML Blood Gas Puncture Site RT RADIAL Blood Gas Patient Temperature 98.6 Blood Gas HCO3 27 mmol/L Blood Gas Base Excess 3.6 mmol/L Blood Gas Oxygen Saturation 97 % Arterial Blood pH 7.48 Arterial Blood Partial Pressure CO2 37 mmHg Arterial Blood Partial Pressure O2 137 mmHg Arterial Blood Oxygen Content 17.2 Vol % Arterial Blood Carboxyhemoglobin 1.3 % Arterial Blood Methemoglobin 1.2 % Blood Gas Hemoglobin 12.5 G/DL Oxygen Delivery Device VENTILATOR Blood Gas Ventilator Setting [id number]/PS5 Blood Gas Inspired Oxygen 40 % Protein Corrected Calcium 8.5 MG/DL Test 06/19/17 03:51 06/19/17 06:45 06/21/17 09:03 06/24/17 05:00 Hematology Comments Urine Color YELLOW Urine Turbidity CLEAR Urine pH 6.0 Urine Specific [place] 1.017 Urine Protein TRACE mg/dL Urine Glucose (UA) NEG mg/dL Urine Ketones NEG mg/dL Urine Occult Blood NEG Urine Nitrite NEG Urine Bilirubin NEG Urine Urobilinogen LESS THAN 2.0 MG/DL Urine Leukocyte Esterase SMALL Urine RBC 1 /hpf Urine WBC 5 /hpf Urine WBC Clumps RARE Urine Squamous Epithelial Cells <1 /hpf Urine Bacteria RARE /hpf Urine Hyaline Casts 1 /lpf Urine Mucus FEW /lpf Microscopic Urinalysis Comment CATH-CULTURE IND Blood Urea Nitrogen 19 MG/DL 26 MG/DL Creatinine 0.71 MG/DL 0.83 MG/DL Random Glucose 90 MG/DL 102 MG/DL Total Protein 6.2 GM/DL Albumin 2.2 GM/DL Calcium Level 8.7 MG/DL 8.6 MG/DL Alkaline Phosphatase 136 U/L Aspartate Amino Transf (AST/SGOT) 34 U/L Alanine Aminotransferase (ALT/SGPT) 40 U/L Total Bilirubin 0.7 MG/DL Sodium Level 137 MEQ/L 136 MEQ/L Potassium Level 4.3 MEQ/L 4.0 MEQ/L Chloride Level 98 MEQ/L 100 MEQ/L Carbon Dioxide Level 29.2 MEQ/L 27.2 MEQ/L White Blood Count 7.9 TH/MM3 Red Blood Count 3.72 MIL/MM3 Hemoglobin 11.3 GM/DL Hematocrit 32.9 % Mean Corpuscular Volume 88.4 FL Mean Corpuscular Hemoglobin 30.2 PG Mean Corpuscular Hemoglobin Concent 34.2 % Red Cell Distribution Width 16.6 % Platelet Count 122 TH/MM3 Mean Platelet Volume 7.2 FL Neutrophils (%) (Auto) 87.9 % Lymphocytes (%) (Auto) 6.2 % Monocytes (%) (Auto) 5.4 % Eosinophils (%) (Auto) 0.1 % Basophils (%) (Auto) 0.4 % Neutrophils # (Auto) 6.9 TH/MM3 Lymphocytes # (Auto) 0.5 TH/MM3 Monocytes # (Auto) 0.4 TH/MM3 Eosinophils # (Auto) 0.0 TH/MM3 Basophils # (Auto) 0.0 TH/MM3 CBC Comment DIFF FINAL Differential Comment Prothrombin Time 40.6 SEC Prothromb Time International Ratio 3.5 RATIO Activated Partial Thromboplast Time 36.7 SEC Phosphorus Level 3.4 MG/DL Magnesium Level 1.8 MG/DL Anion Gap 9 MEQ/L Estimat Glomerular Filtration Rate 65 ML/MIN Objective Remarks GENERAL: No acute distress. SKIN: Skin/dry. ENT: Oral cavity is moist NECK: Trachea midline. Supple. CARDIOVASCULAR: Irregular rate and rhythm. RESPIRATORY: Decreased breath sounds bilateral. no wheezing or crackles. GASTROINTESTINAL: Distended. MUSCULOSKELETAL: no clubbing, cyanosis or edema. NEUROLOGICAL: No focal deficits. Medications and IVs Current Medications Medications (Trade) Dose Ordered Sig/Padmini Route Start Time Stop Time Status Last Admin (Peridex 0.12% Liq) 15 ml BID@08,20 MT 06/03/17 20:00 06/17/17 08:00 (Duoneb Neb) 1 ampule Q2HR NEB PRN NEB 06/03/17 19:00 06/15/17 19:56 (K-Lyte Cl Eff) 50 meq UNSCH PRN PO 06/03/17 19:15 (Mag-Ox) 800 mg UNSCH PRN PO 06/03/17 19:15 (K-Phos) 2,000 mg Q4H PRN PO 06/03/17 19:15 (K-Phos) 2,000 mg UNSCH PRN PO/TUBE 06/03/17 19:15 (D50w (Vial) Inj) 50 ml UNSCH PRN IV PUSH 06/04/17 12:15 (Glucagon Inj) 1 mg UNSCH PRN OTHER 06/04/17 12:15 (Lopressor Inj) 1.25 mg Q6H PRN IV PUSH 06/04/17 19:15 06/06/17 20:29 (Colace Liq) 100 mg Q12HR PO 06/05/17 14:00 06/24/17 09:09 (K-Lyte Cl Eff) 25 meq Q12HR PO 06/05/17 14:00 06/24/17 09:10 (Lanoxin) 0.125 mg DAILY PO 06/06/17 09:00 06/24/17 09:09 (Lopressor) 25 mg Q8HR PO 06/07/17 14:00 06/24/17 12:59 (Cozaar) 50 mg DAILY PO 06/07/17 09:00 06/24/17 09:09 (Apresoline Inj) 20 mg Q4H PRN IV PUSH 06/07/17 08:00 06/23/17 20:48 (Synthroid) 50 mcg DAILY@0600 PO 06/07/17 08:00 06/24/17 06:52 (Promacta) 25 mg DAILY@1000 PO 06/08/17 10:00 06/24/17 09:09 (Pill Splitter) 1 ea UNSCH PRN OTHER 06/07/17 22:15 (NovoLOG SUPPLEMENTAL SCALE) 1 BID@0800,2000 SQ 06/08/17 20:00 06/15/17 08:43 (Mycostatin Liq) 5 ml QID SWISH-SWAL 06/12/17 13:00 06/24/17 09:09 (Pulmicort Respule Neb) 0.5 mg Q12HR NEB NEB 06/16/17 11:15 06/24/17 10:13 (Tylenol 650 Mg/ 20 ml Liq) 650 mg Q6H PRN PO 06/18/17 06:30 06/22/17 22:06 (Lasix Inj) 20 mg Q12H IV PUSH 06/19/17 09:00 06/24/17 09:10 (Coumadin) 3 mg DAILY@16 PO 06/19/17 16:00 Future Hold 06/22/17 16:26 (Zyvox) 600 mg Q12HR PO 06/19/17 21:00 06/24/17 09:11 Pharmacy Profile Note 0 ml @ 0 mls/hr UNSCH OTHER 06/20/17 10:00 (Zofran Inj) 4 mg Q6H PRN IV PUSH 06/22/17 19:30 06/23/17 08:40 (Cardizem) 90 mg Q6HR PO 06/23/17 12:00 06/24/17 12:58 (Mucinex Er) 600 mg BID PO 06/23/17 10:15 06/24/17 09:10 (Levaquin) 250 mg Q24H PO 06/24/17 09:00 06/24/17 09:10 Sodium Chloride 1,000 ml @ 84 mls/hr [id number] IV 06/23/17 13:45 06/24/17 12:59 (Protonix Inj) 40 mg DAILY IV PUSH 06/24/17 09:00 07/17/17 09:00 06/24/17 09:10 (Reglan Inj) 5 mg Q8HR IV PUSH 06/23/17 17:45 06/24/17 12:59 A/P Assessment and Plan This is a pleasant 89 y/o Female with Severe Aortic Stenosis, with complicated Pulmonary Artery Rupture while on right heart catheterization, traumatic pneumothorax secondary to Barotrauma, acute Hypoxic respiratory failure, MRSA Healthcare associated Pneumonia, volume overload. extubated 06/17/17. 1. Metabolic Encephalopathy Resolved, continue on hold Sertraline, has Tylenol PRN CT of the head and C-Spine negative for acute injury 2. Left Lower Pulmonary artery rupture with massive Hemorrhage/Acute Hypoxemic respiratory failure/MRSA Pneumonia Large Left Hemothorax status post IR chest tube placement, residual Left pneumo after evacuation Bilateral apical Pneumothorax Bilateral lower extremity DVT Bilateral Effusion Left greater than Right - s/p coil and Gelfoam closure of Left lower pulmonary artery (peripheral small branch) by Rhoda Corrales and Michaela (see resuscitation note on 06/03/17) - Extubated 06/16/17, tolerating well. (Required re-intubation 06/02 for hypoxemia) - Chest x-ray LLL pneumonia vs lung infarct. Sputum with MRSA. on Zyvox, Levaquin. CXR 06/20/17 slight increase in L effusion - s/p chest tube x2 for right pneumothorax on 06/03. New apical chest tube placed 06/06/17 - IR, placed 24 F Left chest tube 06/05 with drainage of 2 L hemothorax, residual pneumothorax present, now resolved - CXR 06/07, resolution of right improving subcutaneous emphysema. Small residual left apical pneumo - s/p Bronchoscopy with removal of blood predominantly from L lung, s/p repeat bronch 06/06, 06/15 - DuoNeb q 6hours and PRN. INH Budesonide, Single dose of Decadron 6 mg IV x1 06/17 - Venous duplex -bilateral lower extremity DVT. IV heparin started 06/07/17 therapeutic. Coumadin started 06/19 - Removed R chest tube 06/19 3. Hemorrhagic shock Resolved Bilateral Lower extremity DVT/Anemia requiring transfusion/Sever Aortic Stenosis/Atrial Fibrillation with RVR/Possible history of ITP - IV heparin started 06/07/17 for bilateral lower extremity DVT and atrial fibrillation, on coumadin since 06/19 - Continue home Cardizem CD 120 mg daily. - Cleviprex, when necessary hydralazine (well beta blocked) to keep systolic blood pressure less than 150 - Continue IV Lasix, 20 mg IV q12. Home metoprolol at 25 mg by mouth every 8 hours. Home dose of digoxin - On Multaq at home. Defer to Dr. Corrales - Received 6 units of emergency release blood, 2 units of FFP and one of platelets 06/03/17. Multiple crystalloid boluses were given, PARVIN normal LV contractility, volume depletion - 2D Echo 06/04 RV LV function look normal, no PFO - Promacta for ITP - hydralazine 50mg po q8hr and losartan 100mg daily (06/09). now off cleviprex. as per disability specialist okay for discharge to Rehab. 4. MRSA Pneumonia on Levaquin and Zyvox, 06/21 as per ID specialist Doctor Imelda recommended to continue Levaquin and Zyvox Oral for 7 to 10 days and follow CXR periodically and as clinically necessary, follow CBC and Platelet count, Bicarbonate while on Zyvox. 5. Ileus today patient distended will continue IV fluids 84 ml per hour and follow, GI consult, KUB positive for Ileus. 6. Acute kidney injury Improved. PROPH: - DCd SCDs due to DVT. IV Protonix. IV heparin started 06/07, Warfarin by mouth not yet therapeutic INR 3.5 therapeutic. Warfarin on hold today. Discharge Planning as per Attending physician. Jamar Samuels MD Jun 24, 2017 16:31
[2017-06-24] MEDS: MAGNESIUM SULFATE 1 GM PREMIX 100 ML IV SCH ×2 (17:20→18:00)
[2017-06-25] VITALS (28 sets, daily range): BP systolic 138–210; BP diastolic 63–99; PULSE 70–96; RESP 16–18; TEMP 97.5–98; O2SAT 92–97
[2017-06-25] MEDS: DILTIAZEM HCL 60 MG TAB PO SCH ×5 (00:29→23:07)
[2017-06-25] MEDS: SODIUM CHLOR 0.9% 1000 ML INJ 1,000 ML IV SCH ×3 (01:30→22:34)
[2017-06-25 05:34] LABS: INTERNATIONAL NORMALIZED RATIO 2.4 RATIO
[2017-06-25] MEDS: METOPROLOL TARTRATE 25 MG TAB PO SCH ×3 (06:47→22:33)
[2017-06-25] MEDS: LEVOTHYROXINE SODIUM 50 MCG TAB PO SCH (06:47)
[2017-06-25] MEDS: METOCLOPRAMIDE HCL 10 MG/2 ML VIAL IV PUSH SCH ×3 (06:48→22:33)
[2017-06-25] MEDS: INSULIN ASPART SUPPLEMENTAL SCALE SQ SCH ×2 (08:00→20:00)
[2017-06-25] MEDS: CHLORHEXIDINE 0.12% (ORAL KIT) 15 ML CUP MT SCH ×2 (08:00→20:00)
--- NOTE | 2017-06-25 08:42 | HHI.PR ---
Subjective Remarks Wardrobe Manager Notes: I was emergently called to laboratory monitor by Dr. Corrales. Ms. Mahoney who is 89 yo female with history of severe aortic stenosis was undergoing left and right heart catheter for TAVR evaluation. With right heart catheterization patient developed acute massive hemoptysis with shock secondary to acute rupture of pulmonary artery. Patient was intubated by Dr. Potter and ETT was advance to Right lung for selective right lung ventilation due to massive hemorrhage from Left lung. On my arrival to laboratory monitor, patient was rapidly dropping blood pressure. Dopamine was already started. I ordered Shantanu-Synephrine, at 300 mcg/ m in an attempt to increase MAP and also increase the pulmonary vasoconstriction. Levophed was also added to maintain blood pressure and rapidly titrated up. Emergency release blood initially 3 units was ordered stat along with 2 units of FFP, 1 unit of platelet. I also emergently contacted Dr. Vásquez was in the office. (Dr. Bedoya the on-call CT surgeon was operating). While on Levophed Shantanu-Synephrine and dopamine, patient developed coarse V. fib/V. tach, received brief CPR, and was DC cardioverted 1 with return of spontaneous circulation and sinus rhythm. I discussed with Dr. Corrales and anesthesiologist, I also contacted Dr. Josue from invasive radiology.Dr. Josue immediately arrived to the laboratory monitor. Dr. Abdelrahman francis performed PARVIN which showed vigorous LV contraction but cavity was empty. Received Continuous massive fluid resuscitation with multiple crystalloid boluses, bicarbonate and calcium. Blood arrived and initially 3 units of PRBC, 2 units of 1 unit of platelets was given with calcium total 3 g given after blood transfusion. Because of persistent hypotension, additional 2 units of PRBC was given. While I resuscitated the patient, Dr. Corrales and Dr. Jennings performed right heart cath, identified bleeding of a small branch in the left pulmonary artery. They put put in 6 coils in the lower left lower pulmonary artery followed with Gelfoam closing the perforation. 06/04: Emergency chest 2 yesterday for right pneumothorax with hypotension and hypoxia. Remains intubated sedated and on Levophed. FiO2 remains at 100%, Sat improving to 94-95 %. UO adequate overnight. 2-D echo on my review normal LV and RV function, no PFO on bubble study 06/05: Patient is in atrial fibrillation currently on Cardene infusion for blood pressure control. Chest x-ray shows percutaneous emphysema and small apical pneumothorax. Remains on 80% FiO2. I discussed with interventional radiology. We will attempt CT-guided repositioning of the pigtail catheter and possibly upgrading to a larger tube. Urine output adequate 750 mL in 24 hours 06/06: Currently remains in A. fib with rate controlled, hypertensive on Cardizem drip. Oxygen saturation has improved FiO2 now to 40% with saturation 97%. Urine output excellent with Lasix 4.5 L in 24 hours. Chest x-ray today shows 2.5 cm bilateral apical pneumothorax, also left side has 1.2 cm lateral pneumothorax 06/07: Intubated, on low dose propofol for ventilator synchrony. FiO2 40% oxygen saturation 99%. Chest x-ray and labs pending urine output 2.7 L. 3 chest tubes with no air leak. If neuro exam not improving off sedation will check CT of the head. Currently on propofol will change room attendant to Precedex to initiate weaning trials. On weaning doses of inhaled Flolan currently on 30, 000 ng 06/08: Remains intubated, mild sedation with Precedex. Overnight FiO2 increased to 65% for hypoxia. CXR left more than right consolidation of lower lobes. Sputum positive for MRSA on vancomycin. Bilateral lower extremity US studies yesterday showed DVT, initiated on IV heparin. Currently therapeutic on heparin. No evidence of pulmonary hemorrhage. Neuro exam is improving weekly follows commands all 4 extremities 06/09: remains intubated. failed CPAP yesterday. on Cleviprex and precedex. fio2 back to 40%. CXR improved aeration with the exception of known LLL. FC x 4. 06/10: failed SBT again for apnea. but much more awake. denies pain. ROS negative. off cleviprex. new air leak in chest tube. will get chest xray to re- eval. 06/11: Warm, well perfused. Alert, cooperative. Communicates with head nod, hand gestures. Comfortable respiratory pattern and acceptable excursions.Air leaks will seal when off positive pressure ventilation. FiO2 to 0.80 last night briefly; now 0.40. I'll come back later today and see if I can get her extubated. 06/12: Required re-intubation for hypoxemic respiratory failure last evening. She is now warm with well perfused fingers and toes. Low dose levophed not hampering peripheral perfusion. Mild prerenal azotemia. CXR with diffuse infiltrates as before. WBC 32,00, afebrile. Must assume colonized lungs at least. Antibiotic coverage is appropriate. Reculture sputum, urine. Progress to weaning trials daily.Hemodynamics appear excellent, rate a minor problem pretty well controlled. Continue Vanc. Stop pip/roxi, start cefepime. Narrow after cultures. Change CVLs, draw blood cultures. 06/13: Persistent leukocytosis, Tmax 100.2. O2 diffusion acceptable on positive pressure ventilation. Sputum culture pending. Remains warm and well perfused. Continue daily spontaneous breathing trials. 06/14: Bronch and BAL this morning by Dr. Muñoz. Gas exchange remains acceptable. Continue SBTs. 06/15: Looks great on SBTs/CPAP. She would benefit from a temporary tracheostomy. But she will eventually be off and extubated for good. C&S pending from BAL. Continue present abx regimen - discussed with Dr. Segura. 06/16: Awake alert following commands on vent. Currently on Precedex 0.5 g per KG per hour. Still has large amount of ETT secretions, but improving. R pigtail dislodged with turning, no pneumo on repeat CXR 06/17: Awake alert on low dose Precedex. Tolerated CPAP yesterday. Not extubated yesterday due copious bloody secretions. The chest x-ray shows some interval improvement and secretions slightly improved. Will proceed with SBT and possible extubation 06/18: Extubated yesterday tolerating very well. Coughing up sputum, cough seems adequate. Slight increase in WBC to 19.1. Received single dose of Decadron yesterday. Overall doing well communicating, no fever 06/19: WBC count slightly improved 17.9. Otherwise breathing comfortably. Single episode of delirium overnight. Will remove Payne today and also remove right chest tube 06/20: Up in chair, labs pending. CXR showing slight increase in L effusion. Will check bedside US. Hospitalist Notes: 06/21: Stable in her bedroom in sitting position eating her breakfast, no complaint, no nausea, vomit or diarrhea, on contact precautions, vital signs stable as per ID specialist Doctor Imelda recommended to continue Levaquin and Zyvox Oral for 7 to 10 days and follow CXR periodically and as clinically necessary, follow CBC and Platelet count, Bicarbonate while on Zyvox. 06/22: Seen in her bedroom and discussed with nurse Mr. Deleon, no nausea, vomit or diarrhea. working with PT. tomorrow will be followed by her Primary channel marketing specialist and probable discharge to Rehab facility. 06/23: Seen in her bedroom in the presence of nurse Miss Crowley the patient today distended asked for KUB, that came positive for probable Ileus asked for GI specialist consult and started on IV fluids the patient is not able to take by mouth is been vomiting refusing medicines. 06/24: Stable seen by GI specialist she continue with Abdominal distention, recommended to continue NG to LIWS, NPO, Metoclopramide Discussed with nurse Miss Crowley. 06/25: Seen in her bedroom and discussed with nurse Miss Gonzalez she continue with NG tube but taking liquids, no nausea, vomit or diarrhea, improving her abdominal distention. asked by GI specialist for new KUB, also considering a trail of Relistor, recommended to continue Clear liquids, Continue Reglan. Objective Vital Signs Date Time Temp Pulse Resp B/P (MAP) Pulse Ox O2 Delivery O2 Flow Rate FiO2 06/25/17 07:50 98.0 85 16 187/82 (117) 92 06/25/17 06:00 75 06/25/17 05:00 80 06/25/17 04:02 81 06/25/17 04:00 97.6 93 16 174/86 (115) 96 06/25/17 03:52 98 Nasal Cannula 2.00 06/25/17 03:00 80 06/25/17 02:00 86 06/25/17 01:00 72 06/25/17 00:00 98 Nasal Cannula 2.00 06/25/17 00:00 97.8 95 16 179/80 (113) 96 06/25/17 00:00 86 06/24/17 23:00 90 06/24/17 22:00 98 06/24/17 21:10 95 Nasal Cannula 3.00 06/24/17 21:00 92 06/24/17 20:00 106 06/24/17 20:00 98 Nasal Cannula 2.00 06/24/17 20:00 97.9 79 16 189/79 (115) 94 06/24/17 19:00 92 06/24/17 18:00 90 06/24/17 17:00 83 06/24/17 16:00 71 06/24/17 15:28 94 Nasal Cannula 2.00 06/24/17 15:28 97.6 81 16 151/70 (97) 94 06/24/17 15:00 73 06/24/17 14:00 74 06/24/17 13:00 100 06/24/17 12:00 97 06/24/17 11:22 97.5 96 16 144/69 (94) 95 06/24/17 11:22 95 Nasal Cannula 2.00 06/24/17 11:00 101 06/24/17 10:13 94 Nasal Cannula 2.00 06/24/17 10:00 92 06/24/17 09:00 72 I/O 06/24/17 06/24/17 06/24/17 06/25/17 06/25/17 06/25/17 07:00 15:00 23:00 07:00 15:00 23:00 Intake Total 0 ml 1235 ml 252 ml Output Total 300 ml 50 ml 50 ml Balance -300 ml 1185 ml 202 ml Intake Oral 0 ml 0 ml 0 ml IV Total 1235 ml 252 ml Gastric Drainage Total 300 ml 50 ml 50 ml # Voids 2 3 7 Result Diagram: 06/24/17 0500 06/24/17 0500 Imaging Last Impressions Abdomen X-Ray 06/23/17 0000 Signed Impressions: Service Date/Time: Friday, June 23, 2017 11:33 - CONCLUSION: Nonspecific bowel gas pattern with some air-filled loops of mildly dilated small bowel and nondilated colon. This may be an ileus. Aleksey Au MD Chest X-Ray 06/21/17 0600 Signed Impressions: Service Date/Time: Wednesday, June 21, 2017 05:07 - CONCLUSION: Increased bilateral pulmonary opacity suggesting pulmonary edema. No change in bilateral pleural effusions. Pawan You MD Tunnelled Chest Tube Removal 06/13/17 0000 Signed Impressions: Service Date/Time: Tuesday, June 13, 2017 00:00 - CONCLUSION: Uncomplicated chest tube removal. Joselo Jennings MD Upper Extremity Ultrasound 06/07/17 0000 Signed Impressions: Service Date/Time: Wednesday, June 07, 2017 18:21 - CONCLUSION: 1. Limited exam but no deep venous thrombosis is identified bilaterally. Jamie Corrales MD Lower Extremity Ultrasound 06/07/17 0000 Signed Impressions: Service Date/Time: Wednesday, June 07, 2017 17:57 - CONCLUSION: 1. Positive bilateral lower extremity deep venous thrombosis, nonocclusive as above. Jamie Corrales MD Head CT 06/07/17 0000 Signed Impressions: Service Date/Time: Wednesday, June 07, 2017 17:01 - CONCLUSION: 1. No acute intracranial abnormality. 2. Extensive subcutaneous air tracking up from the chest. Luc Cain Jr., MD Cervical Spine CT 06/07/17 0000 Signed Impressions: Service Date/Time: Wednesday, June 07, 2017 17:01 - CONCLUSION: 1. Extensive subcutaneous emphysema. 2. Tiny left apical pneumothorax. 3. Diffuse mild degenerative changes without central canal stenosis. Multilevel neural foraminal narrowing. 4. Prevertebral soft tissues obscured by an endotracheal tube and nasogastric tube. Luc Cain Jr., MD Chest Tube Insertion 06/05/17 0000 Signed Impressions: Service Date/Time: May 09:15 - CONCLUSION: Uncomplicated chest tube placement as above. Maxwell Aldana MD Chest CT 06/05/17 0000 Signed Impressions: Service Date/Time: May 08:47 - CONCLUSION: 1. Moderate left-sided hemothorax with associated left lower lobe consolidation which may reflect a combination of compressive atelectasis, aspiration, and potentially lung infarction given recent pulmonary artery embolization. 2. Trace right apical pneumothorax with large bore chest tube in the major fissure and smallbore chest tube in the soft tissues. Significant subcutaneous emphysema extending to the cervicothoracic junction bilaterally. 3. Airspace consolidation in the right lower lobe posteriorly may reflect aspiration. Maxwell Aldana MD Embolization 06/03/17 0000 Signed Impressions: Service Date/Time: Saturday, June 03, 2017 00:00 - CONCLUSION: Left pulmonary artery rupture with successful coil embolization of a lower lobe branch vessel as above. Joselo Jennings MD Other Results Laboratory Tests Test 06/03/17 18:10 06/04/17 04:15 06/05/17 10:15 06/07/17 06:48 Acanthocytes 1+ Nasal Screen MRSA (PCR) MRSA NOT DETECTED Fibrinogen 374 mg/dL Thyroid Stimulating Hormone 3rd Gen 2.470 uIU/ML Test 06/08/17 04:30 06/09/17 04:30 06/11/17 20:14 06/12/17 04:20 Myelocytes 1 % Ovalocytes 1+ Vancomycin Level Trough 25.5 MCG/ML Eosinophils % 1 % Metamyelocytes 1 % Digoxin Level 1.3 NG/ML Test 06/12/17 08:20 06/13/17 05:20 06/13/17 08:36 06/13/17 22:00 Urine Renal Epithelial Cells 1 /hpf Urine Yeast with Hyphae MANY Random Vancomycin Level 20.8 COMMENT Lactic Acid Level 1.3 mmol/L Direct Bilirubin 0.6 MG/DL Indirect Bilirubin 0.7 MG/DL C-Reactive Protein High Sensitivity 74.7 mg/L Lipase 183 U/L Urine Yeast (Budding) MANY Test 06/14/17 04:13 06/16/17 04:00 06/16/17 08:57 06/17/17 05:10 Differential Total Cells Counted 100 Neutrophils % (Manual) 90 % Band Neutrophils % 5 % Lymphocytes % 2 % Monocytes % 3 % Neutrophils # (Manual) 30.5 TH/MM3 Platelet Estimate NORMAL Platelet Morphology Comment NORMAL Red Cell Morphology Comment NORMAL B-Type Natriuretic Peptide 369 PG/ML Blood Gas Puncture Site RT RADIAL Blood Gas Patient Temperature 98.6 Blood Gas HCO3 27 mmol/L Blood Gas Base Excess 3.6 mmol/L Blood Gas Oxygen Saturation 97 % Arterial Blood pH 7.48 Arterial Blood Partial Pressure CO2 37 mmHg Arterial Blood Partial Pressure O2 137 mmHg Arterial Blood Oxygen Content 17.2 Vol % Arterial Blood Carboxyhemoglobin 1.3 % Arterial Blood Methemoglobin 1.2 % Blood Gas Hemoglobin 12.5 G/DL Oxygen Delivery Device VENTILATOR Blood Gas Ventilator Setting [id number]/PS5 Blood Gas Inspired Oxygen 40 % Protein Corrected Calcium 8.5 MG/DL Test 06/19/17 03:51 06/19/17 06:45 06/21/17 09:03 06/24/17 05:00 Hematology Comments Urine Color YELLOW Urine Turbidity CLEAR Urine pH 6.0 Urine Specific [place] 1.017 Urine Protein TRACE mg/dL Urine Glucose (UA) NEG mg/dL Urine Ketones NEG mg/dL Urine Occult Blood NEG Urine Nitrite NEG Urine Bilirubin NEG Urine Urobilinogen LESS THAN 2.0 MG/DL Urine Leukocyte Esterase SMALL Urine RBC 1 /hpf Urine WBC 5 /hpf Urine WBC Clumps RARE Urine Squamous Epithelial Cells <1 /hpf Urine Bacteria RARE /hpf Urine Hyaline Casts 1 /lpf Urine Mucus FEW /lpf Microscopic Urinalysis Comment CATH-CULTURE IND Blood Urea Nitrogen 19 MG/DL 26 MG/DL Creatinine 0.71 MG/DL 0.83 MG/DL Random Glucose 90 MG/DL 102 MG/DL Total Protein 6.2 GM/DL Albumin 2.2 GM/DL Calcium Level 8.7 MG/DL 8.6 MG/DL Alkaline Phosphatase 136 U/L Aspartate Amino Transf (AST/SGOT) 34 U/L Alanine Aminotransferase (ALT/SGPT) 40 U/L Total Bilirubin 0.7 MG/DL Sodium Level 137 MEQ/L 136 MEQ/L Potassium Level 4.3 MEQ/L 4.0 MEQ/L Chloride Level 98 MEQ/L 100 MEQ/L Carbon Dioxide Level 29.2 MEQ/L 27.2 MEQ/L White Blood Count 7.9 TH/MM3 Red Blood Count 3.72 MIL/MM3 Hemoglobin 11.3 GM/DL Hematocrit 32.9 % Mean Corpuscular Volume 88.4 FL Mean Corpuscular Hemoglobin 30.2 PG Mean Corpuscular Hemoglobin Concent 34.2 % Red Cell Distribution Width 16.6 % Platelet Count 122 TH/MM3 Mean Platelet Volume 7.2 FL Neutrophils (%) (Auto) 87.9 % Lymphocytes (%) (Auto) 6.2 % Monocytes (%) (Auto) 5.4 % Eosinophils (%) (Auto) 0.1 % Basophils (%) (Auto) 0.4 % Neutrophils # (Auto) 6.9 TH/MM3 Lymphocytes # (Auto) 0.5 TH/MM3 Monocytes # (Auto) 0.4 TH/MM3 Eosinophils # (Auto) 0.0 TH/MM3 Basophils # (Auto) 0.0 TH/MM3 CBC Comment DIFF FINAL Differential Comment Activated Partial Thromboplast Time 36.7 SEC Phosphorus Level 3.4 MG/DL Magnesium Level 1.8 MG/DL Anion Gap 9 MEQ/L Estimat Glomerular Filtration Rate 65 ML/MIN Test 06/25/17 04:37 Prothrombin Time 28.0 SEC Prothromb Time International Ratio 2.4 RATIO Objective Remarks GENERAL: No acute distress. SKIN: Skin/dry. ENT: Oral cavity is moist NECK: Trachea midline. Supple. CARDIOVASCULAR: Irregular rate and rhythm. RESPIRATORY: Decreased breath sounds bilateral. no wheezing or crackles. GASTROINTESTINAL: Improving Distention. MUSCULOSKELETAL: no clubbing, cyanosis or edema. NEUROLOGICAL: No focal deficits. Medications and IVs Current Medications Medications (Trade) Dose Ordered Sig/Padmini Route Start Time Stop Time Status Last Admin (Peridex 0.12% Liq) 15 ml BID@08,20 MT 06/03/17 20:00 06/17/17 08:00 (Duoneb Neb) 1 ampule Q2HR NEB PRN NEB 06/03/17 19:00 06/15/17 19:56 (K-Lyte Cl Eff) 50 meq UNSCH PRN PO 06/03/17 19:15 (Mag-Ox) 800 mg UNSCH PRN PO 06/03/17 19:15 (K-Phos) 2,000 mg Q4H PRN PO 06/03/17 19:15 (K-Phos) 2,000 mg UNSCH PRN PO/TUBE 06/03/17 19:15 (D50w (Vial) Inj) 50 ml UNSCH PRN IV PUSH 06/04/17 12:15 (Glucagon Inj) 1 mg UNSCH PRN OTHER 06/04/17 12:15 (Lopressor Inj) 1.25 mg Q6H PRN IV PUSH 06/04/17 19:15 06/06/17 20:29 (Colace Liq) 100 mg Q12HR PO 06/05/17 14:00 06/24/17 21:52 (K-Lyte Cl Eff) 25 meq Q12HR PO 06/05/17 14:00 06/24/17 21:52 (Lanoxin) 0.125 mg DAILY PO 06/06/17 09:00 06/24/17 09:09 (Lopressor) 25 mg Q8HR PO 06/07/17 14:00 06/25/17 06:47 (Cozaar) 50 mg DAILY PO 06/07/17 09:00 06/24/17 09:09 (Apresoline Inj) 20 mg Q4H PRN IV PUSH 06/07/17 08:00 06/23/17 20:48 (Synthroid) 50 mcg DAILY@0600 PO 06/07/17 08:00 06/25/17 06:47 (Promacta) 25 mg DAILY@1000 PO 06/08/17 10:00 06/24/17 09:09 (Pill Splitter) 1 ea UNSCH PRN OTHER 06/07/17 22:15 (NovoLOG SUPPLEMENTAL SCALE) 1 BID@0800,2000 SQ 06/08/17 20:00 06/15/17 08:43 (Mycostatin Liq) 5 ml QID SWISH-SWAL 06/12/17 13:00 06/24/17 21:52 (Pulmicort Respule Neb) 0.5 mg Q12HR NEB NEB 06/16/17 11:15 06/24/17 21:08 (Tylenol 650 Mg/ 20 ml Liq) 650 mg Q6H PRN PO 06/18/17 06:30 06/22/17 22:06 (Lasix Inj) 20 mg Q12H IV PUSH 06/19/17 09:00 06/24/17 21:53 (Coumadin) 3 mg DAILY@16 PO 06/19/17 16:00 Future Hold 06/22/17 16:26 (Zyvox) 600 mg Q12HR PO 06/19/17 21:00 06/24/17 21:53 Pharmacy Profile Note 0 ml @ 0 mls/hr UNSCH OTHER 06/20/17 10:00 (Zofran Inj) 4 mg Q6H PRN IV PUSH 06/22/17 19:30 06/23/17 08:40 (Cardizem) 90 mg Q6HR PO 06/23/17 12:00 06/25/17 06:47 (Mucinex Er) 600 mg BID PO 06/23/17 10:15 06/24/17 21:53 (Levaquin) 250 mg Q24H PO 06/24/17 09:00 06/24/17 09:10 Sodium Chloride 1,000 ml @ 84 mls/hr [id number] IV 06/23/17 13:45 06/24/17 12:59 (Protonix Inj) 40 mg DAILY IV PUSH 06/24/17 09:00 07/17/17 09:00 06/24/17 09:10 (Reglan Inj) 5 mg Q8HR IV PUSH 06/23/17 17:45 06/25/17 06:48 A/P Assessment and Plan This is a pleasant 89 y/o Female with Severe Aortic Stenosis, with complicated Pulmonary Artery Rupture while on right heart catheterization, traumatic pneumothorax secondary to Barotrauma, acute Hypoxic respiratory failure, MRSA Healthcare associated Pneumonia, volume overload. extubated 06/17/17. 1. Metabolic Encephalopathy Resolved, continue on hold Sertraline, has Tylenol PRN CT of the head and C-Spine negative for acute injury 2. Left Lower Pulmonary artery rupture with massive Hemorrhage/Acute Hypoxemic respiratory failure/MRSA Pneumonia Large Left Hemothorax status post IR chest tube placement, residual Left pneumo after evacuation Bilateral apical Pneumothorax Bilateral lower extremity DVT Bilateral Effusion Left greater than Right - s/p coil and Gelfoam closure of Left lower pulmonary artery (peripheral small branch) by Rhoda Corrales and Michaela (see resuscitation note on 06/03/17) - Extubated 06/16/17, tolerating well. (Required re-intubation 06/02 for hypoxemia) - Chest x-ray LLL pneumonia vs lung infarct. Sputum with MRSA. on Zyvox, Levaquin. CXR 06/20/17 slight increase in L effusion - s/p chest tube x2 for right pneumothorax on 06/03. New apical chest tube placed 06/06/17 - IR, placed 24 F Left chest tube 06/05 with drainage of 2 L hemothorax, residual pneumothorax present, now resolved - CXR 06/07, resolution of right improving subcutaneous emphysema. Small residual left apical pneumo - s/p Bronchoscopy with removal of blood predominantly from L lung, s/p repeat bronch 06/06, 06/15 - DuoNeb q 6hours and PRN. INH Budesonide, Single dose of Decadron 6 mg IV x1 06/17 - Venous duplex -bilateral lower extremity DVT. IV heparin started 06/07/17 therapeutic. Coumadin started 06/19 - Removed R chest tube 06/19 3. Hemorrhagic shock Resolved Bilateral Lower extremity DVT/Anemia requiring transfusion/Sever Aortic Stenosis/Atrial Fibrillation with RVR/Possible history of ITP - IV heparin started 06/07/17 for bilateral lower extremity DVT and atrial fibrillation, on coumadin since 06/19 - Continue home Cardizem CD 120 mg daily. - Cleviprex, when necessary hydralazine (well beta blocked) to keep systolic blood pressure less than 150 - Continue IV Lasix, 20 mg IV q12. Home metoprolol at 25 mg by mouth every 8 hours. Home dose of digoxin - On Multaq at home. Defer to Dr. Corrales - Received 6 units of emergency release blood, 2 units of FFP and one of platelets 06/03/17. Multiple crystalloid boluses were given, PARVIN normal LV contractility, volume depletion - 2D Echo 06/04 RV LV function look normal, no PFO - Promacta for ITP - hydralazine 50mg po q8hr and losartan 100mg daily (06/09). now off cleviprex. as per channel marketing specialist okay for discharge to Rehab. 4. MRSA Pneumonia on Levaquin and Zyvox, 06/21 as per ID specialist Doctor Imelda recommended to continue Levaquin and Zyvox Oral for 7 to 10 days and follow CXR periodically and as clinically necessary, follow CBC and Platelet count, Bicarbonate while on Zyvox. 5. Ileus today patient distended will continue IV fluids 84 ml per hour and follow, GI consult, KUB positive for Ileus. Improving asked for new KUB by GI specialist and following, continue liquid diet. 6. Hypertension uncontrolled added Clonidine. 6. Acute kidney injury Improved. PROPH: - DCd SCDs due to DVT. IV Protonix. IV heparin started 06/07, Warfarin by mouth not yet therapeutic INR 3.5 therapeutic. Warfarin on hold today. Discharge Planning as per Attending physician. Jamar Samuels MD Jun 25, 2017 08:42
[2017-06-25] MEDS ORDERED: hydrALAZINE HCL 20 MG/ML VIAL IV PUSH ONE (08:45)
[2017-06-25] MEDS ORDERED: ENALAPRILAT 1.25 MG/ML VIAL IV PUSH PRN (08:45)
[2017-06-25] MEDS: RESP: BUDESONIDE 0.5 MG/2 ML NEB NEB SCH ×2 (08:56→20:00)
[2017-06-25] MEDS: PANTOPRAZOLE SODIUM 40 MG VIAL IV PUSH SCH (09:00)
[2017-06-25] MEDS: LEVOFLOXACIN 250 MG TAB PO SCH (09:00)
[2017-06-25] MEDS: FUROSEMIDE 20 MG/2 ML VIAL IV PUSH SCH ×2 (09:00→22:34)
[2017-06-25] MEDS: guaiFENesin E.R. 600 MG TAB PO SCH ×2 (09:20→22:33)
[2017-06-25] MEDS: DOCUSATE SODIUM 100 MG/10 ML UDC PO SCH ×2 (09:20→22:32)
[2017-06-25] MEDS: NYSTATIN SUSP 500,000 U/5 ML CUP SWISH-SWAL SCH ×4 (09:20→22:32)
[2017-06-25] MEDS: DIGOXIN 0.125 MG TAB PO SCH (09:20)
[2017-06-25] MEDS: LINEZOLID 600 MG TAB PO SCH ×2 (09:20→22:33)
[2017-06-25] MEDS: LOSARTAN 50 MG TAB PO SCH (09:20)
[2017-06-25] MEDS: POTASSIUM CHLORIDE 25 MEQ EFFERVESCENT TAB PO SCH ×2 (09:31→22:32)
--- NOTE | 2017-06-25 09:44 | HHI.GIFU ---
Subjective Remarks Resting in bed. NGT clamped. No n/v. Abdomen mildly distended/tender. No response to SSE. No BM. (Sabine Moncada) Objective Vitals I&O Vital Signs Date Time Temp Pulse Resp B/P (MAP) Pulse Ox O2 Delivery O2 Flow Rate FiO2 06/25/17 08:58 Nasal Cannula 2.50 06/25/17 07:50 98.0 85 16 187/82 (117) 92 06/25/17 06:00 75 06/25/17 05:00 80 06/25/17 04:02 81 06/25/17 04:00 97.6 93 16 174/86 (115) 96 06/25/17 03:52 98 Nasal Cannula 2.00 06/25/17 03:00 80 06/25/17 02:00 86 06/25/17 01:00 72 06/25/17 00:00 98 Nasal Cannula 2.00 06/25/17 00:00 97.8 95 16 179/80 (113) 96 06/25/17 00:00 86 06/24/17 23:00 90 06/24/17 22:00 98 06/24/17 21:10 95 Nasal Cannula 3.00 06/24/17 21:00 92 06/24/17 20:00 106 06/24/17 20:00 98 Nasal Cannula 2.00 06/24/17 20:00 97.9 79 16 189/79 (115) 94 06/24/17 19:00 92 06/24/17 18:00 90 06/24/17 17:00 83 06/24/17 16:00 71 06/24/17 15:28 94 Nasal Cannula 2.00 06/24/17 15:28 97.6 81 16 151/70 (97) 94 06/24/17 15:00 73 06/24/17 14:00 74 06/24/17 13:00 100 06/24/17 12:00 97 06/24/17 11:22 97.5 96 16 144/69 (94) 95 06/24/17 11:22 95 Nasal Cannula 2.00 06/24/17 11:00 101 06/24/17 10:13 94 Nasal Cannula 2.00 06/24/17 10:00 92 I/O 11/7/17 11/03/0306/24/17 06/25/17 06/25/17 06/25/17 07:00 15:00 23:00 07:00 15:00 23:00 Intake Total 0 ml 1235 ml 252 ml Output Total 300 ml 50 ml 50 ml Balance -300 ml 1185 ml 202 ml Intake Oral 0 ml 0 ml 0 ml IV Total 1235 ml 252 ml Gastric Drainage Total 300 ml 50 ml 50 ml # Voids 2 3 7 Laboratory Laboratory Tests Test 06/25/17 04:37 Prothrombin Time 28.0 Prothromb Time International Ratio 2.4 Date/Time Source Procedure Growth Status 06/12/17 15:24 Blood Peripheral Aerobic Blood Culture - Final NO GROWTH IN 5 DAYS Complete 06/12/17 15:24 Blood Peripheral Anaerobic Blood Culture - Final NO GROWTH IN 5 DAYS Complete 06/09/17 09:45 Stool Stool Stool Occult Blood (KIM) - Final HEMOCCULT POSITIVE Complete 06/14/17 12:00 Bronchial Washings Left Lower Lobe Gram Stain - Final Complete 06/14/17 12:00 Bronchial Culture - Final S. Aureus Mrsa Complete 06/19/17 06:45 Urine Catheterized Urine Urine Culture - Final NO GROWTH IN 48 HOURS. Complete 06/12/17 13:20 Catheter Tip Central Venous Line Wound Culture - Final NO GROWTH IN 48 HOURS. Complete Imaging Last Impressions Abdomen X-Ray 06/23/17 0000 Signed Impressions: Service Date/Time: Friday, June 23, 2017 11:33 - CONCLUSION: Nonspecific bowel gas pattern with some air-filled loops of mildly dilated small bowel and nondilated colon. This may be an ileus. Aleksey Au MD Chest X-Ray 06/21/17 0600 Signed Impressions: Service Date/Time: Wednesday, June 21, 2017 05:07 - CONCLUSION: Increased bilateral pulmonary opacity suggesting pulmonary edema. No change in bilateral pleural effusions. Pawan You MD Tunnelled Chest Tube Removal 06/13/17 0000 Signed Impressions: Service Date/Time: Tuesday, June 13, 2017 00:00 - CONCLUSION: Uncomplicated chest tube removal. Joselo Jennings MD Upper Extremity Ultrasound 06/07/17 0000 Signed Impressions: Service Date/Time: Wednesday, June 07, 2017 18:21 - CONCLUSION: 1. Limited exam but no deep venous thrombosis is identified bilaterally. Jamie Corrales MD Lower Extremity Ultrasound 06/07/17 Signed Impressions: Service Date/Time: Wednesday, June 07, 2017 17:57 - CONCLUSION: 1. Positive bilateral lower extremity deep venous thrombosis, nonocclusive as above. Jamie Corrales MD Head CT 06/07/17 Signed Impressions: Service Date/Time: Wednesday, June 07, 2017 17:01 - CONCLUSION: 1. No acute intracranial abnormality. 2. Extensive subcutaneous air tracking up from the chest. Luc Cain Jr., MD Cervical Spine CT 06/07/17 Signed Impressions: Service Date/Time: Wednesday, June 07, 2017 17:01 - CONCLUSION: 1. Extensive subcutaneous emphysema. 2. Tiny left apical pneumothorax. 3. Diffuse mild degenerative changes without central canal stenosis. Multilevel neural foraminal narrowing. 4. Prevertebral soft tissues obscured by an endotracheal tube and nasogastric tube. Luc Cain Jr., MD Chest Tube Insertion 06/05/17 Signed Impressions: Service Date/Time: May 09:15 - CONCLUSION: Uncomplicated chest tube placement as above. Maxwell Aldana MD Chest CT 06/05/17 Signed Impressions: Service Date/Time: May 08:47 - CONCLUSION: 1. Moderate left-sided hemothorax with associated left lower lobe consolidation which may reflect a combination of compressive atelectasis, aspiration, and potentially lung infarction given recent pulmonary artery embolization. 2. Trace right apical pneumothorax with large bore chest tube in the major fissure and smallbore chest tube in the soft tissues. Significant subcutaneous emphysema extending to the cervicothoracic junction bilaterally. 3. Airspace consolidation in the right lower lobe posteriorly may reflect aspiration. Maxwell Aldana MD Embolization 06/03/17 Signed Impressions: Service Date/Time: Saturday, June 03, 2017 00:00 - CONCLUSION: Left pulmonary artery rupture with successful coil embolization of a lower lobe branch vessel as above. Joselo Jennings MD Physical Exam HEENT: Normocephalic; atraumatic; no jaundice. CHEST: Resp. shallow, mildly tachypneic, diminished, crackles base CARDIAC: Irregular. ABDOMEN: Soft, mildly distended, mild diffuse tenderness; no hepatosplenomegaly ; bowel sounds are present in all four quadrants. EXTREMITIES: Generalized edema. CLAIMS ADJUDICATOR: Lethargic (Sabine Moncada) Assessment and Plan Plan ASSESSMENT: - Ileus/Constipation. KUB (06/23/17)---> Nonspecific bowel gas pattern with some air filled loops of mildly dilated small bowel and nondilated colon. This may be an ileus. S/P SSE x 2 on 06/23 , no response per nurse. Has not had bowel movement since. Last BM 06/21. Clinically, no n/v. Still mildly distended, mild tenderness. Reglan. Add Miralax daily. Clear liquids to try to stimulate bowel- if n/v , then npo- d/w nurse. Await KUB, Depending on KUB results, will consider trial of Relistor. - Anemia. S/P 6 units PRBC, 4 units FFP, 1 platelet pack. 32.9. - Severe aortic stenosis, S/P left and right heart catheter for TAVR evaluation. Developed right heart catheterization patient developed acute massive hemoptysis with shock secondary to acute rupture of pulmonary artery. S/P Dr. Corrales and Dr. Jennings performed right heart cath, identified bleeding of a small branch in the left pulmonary artery- S/P 6 coils in the lower left lower pulmonary artery followed with Gelfoam closing the perforation. - Atrial fibrillation. Cardizem, Digoxin, BB. Rate controlled. - Resp. Failure, PTX, PNA, now extubated. Resp. shallow, mildly tachypneic. Zyvox, nebs Per attending. - Vfib/Vtach. S/P CPR, cardioversion- ROSC. PLAN - Clear liquids - If n/v, then make NPO - Await KUB - Add Miralax 17gram po daily - Cont. Reglan - Will await results of KUB, depending on results, may give trial of relistor - Encourage mobility, OOB to chair. - Supportive care - Further recommendations to follow based on results of above - Pt seen and examined by Dr. Licona and myself and this note is written on his behalf (Sabine Moncada) Physician Comments Seen and examined, plan as above. Check KUB result Will follow up with you. (Yoly Licona MD) Sabine Moncada Jun 25, 2017 09:44 Yoly Licona MD Jun 25, 2017 10:57
[2017-06-25] MEDS: ELTROMBOPAG 50 MG TAB PO SCH (10:00)
--- NOTE | 2017-06-25 10:28 | RADRPT ---
EXAM DATE/TIME: 06/25/2017 09:01 [facility] COMPARISON: ABDOMEN KUB ONLY, June 23, 2017, 11:33. INDICATIONS : Ileus. MEDICAL HISTORY : Hypertension. Carcinoma, colon. Cardiovascular disease. SURGICAL HISTORY : heart cath ENCOUNTER: Initial ACUITY: 3 weeks PAIN SCORE: Non-responsive. LOCATION: Bilateral abdomen FINDINGS: 2 supine frontal views of the abdomen demonstrates air within small and large bowel in a nonobstructi ve pattern. The dilated small bowel present on the study from 2 days ago has mostly resolved. No orga nomegaly or concerning calcifications are seen. There is levoscoliosis with degenerative change of th e lumbar spine and there is severe atherosclerotic disease of the aorta. Distal aspect of a nasogastr ic tube overlies the left upper quadrant. CONCLUSION: 1. Mild air distention of small and large bowel in a nonobstructive pattern. The mildly dilated small bowel segments documented previously have mostly resolved. 2. Severe atherosclerotic disease. Alvin Cason MD on June 25, 2017 at 10:21 Board Certified Radiologist. This report was verified electronically.
[2017-06-25] MEDS: POLYETHYLENE GLYCOL 17 GM PKG PO SCH (11:24)
[2017-06-25] MEDS: hydrALAZINE HCL 20 MG/ML VIAL IV PUSH PRN (11:25)
--- NOTE | 2017-06-25 12:19 | PD.CARD.PN ---
Subjective Subjective Remarks Extubated No overnight events Moving all extremities afebrile Ileus NGT in place Objective Medications Current Medications Medications (Trade) Dose Ordered Sig/Padmini Route Start Time Stop Time Status Last Admin (Peridex 0.12% Liq) 15 ml BID@08,20 MT 06/03/17 20:00 06/17/17 08:00 (Duoneb Neb) 1 ampule Q2HR NEB PRN NEB 06/03/17 19:00 06/15/17 19:56 (K-Lyte Cl Eff) 50 meq UNSCH PRN PO 06/03/17 19:15 (Mag-Ox) 800 mg UNSCH PRN PO 06/03/17 19:15 (K-Phos) 2,000 mg Q4H PRN PO 06/03/17 19:15 (K-Phos) 2,000 mg UNSCH PRN PO/TUBE 06/03/17 19:15 (D50w (Vial) Inj) 50 ml UNSCH PRN IV PUSH 06/04/17 12:15 (Glucagon Inj) 1 mg UNSCH PRN OTHER 06/04/17 12:15 (Lopressor Inj) 1.25 mg Q6H PRN IV PUSH 06/04/17 19:15 06/06/17 20:29 (Colace Liq) 100 mg Q12HR PO 06/05/17 14:00 06/25/17 09:20 (K-Lyte Cl Eff) 25 meq Q12HR PO 06/05/17 14:00 06/25/17 09:31 (Lanoxin) 0.125 mg DAILY PO 06/06/17 09:00 06/25/17 09:20 (Lopressor) 25 mg Q8HR PO 06/07/17 14:00 06/25/17 06:47 (Cozaar) 50 mg DAILY PO 06/07/17 09:00 06/25/17 09:20 (Apresoline Inj) 20 mg Q4H PRN IV PUSH 06/07/17 08:00 06/25/17 11:25 (Synthroid) 50 mcg DAILY@0600 PO 06/07/17 08:00 06/25/17 06:47 (Promacta) 25 mg DAILY@1000 PO 06/08/17 10:00 06/24/17 09:09 (Pill Splitter) 1 ea UNSCH PRN OTHER 06/07/17 22:15 (NovoLOG SUPPLEMENTAL SCALE) 1 BID@0800,2000 SQ 06/08/17 20:00 06/15/17 08:43 (Mycostatin Liq) 5 ml QID SWISH-SWAL 06/12/17 13:00 06/25/17 09:20 (Pulmicort Respule Neb) 0.5 mg Q12HR NEB NEB 06/16/17 11:15 06/25/17 08:56 (Tylenol 650 Mg/ 20 ml Liq) 650 mg Q6H PRN PO 06/18/17 06:30 06/22/17 22:06 (Lasix Inj) 20 mg Q12H IV PUSH 06/19/17 09:00 06/25/17 09:00 (Zyvox) 600 mg Q12HR PO 06/19/17 21:00 06/25/17 09:20 Pharmacy Profile Note 0 ml @ 0 mls/hr UNSCH OTHER 06/20/17 10:00 (Zofran Inj) 4 mg Q6H PRN IV PUSH 06/22/17 19:30 06/23/17 08:40 (Cardizem) 90 mg Q6HR PO 06/23/17 12:00 06/25/17 11:24 (Mucinex Er) 600 mg BID PO 06/23/17 10:15 06/25/17 09:20 (Levaquin) 250 mg Q24H PO 06/24/17 09:00 06/25/17 09:00 Sodium Chloride 1,000 ml @ 84 mls/hr [id number] IV 06/23/17 13:45 06/24/17 12:59 (Protonix Inj) 40 mg DAILY IV PUSH 06/24/17 09:00 07/17/17 09:00 06/25/17 09:00 (Reglan Inj) 5 mg Q8HR IV PUSH 06/23/17 17:45 06/25/17 06:48 (Vasotec Inj) 1.25 mg Q6H PRN IV PUSH 06/25/17 08:45 (Coumadin) 2 mg DAILY@1600 PO 06/25/17 16:00 (Miralax) 17 gm DAILY PO 06/25/17 09:45 06/25/17 11:24 Vital Signs / I&O Vital Signs Date Time Temp Pulse Resp B/P (MAP) Pulse Ox O2 Delivery O2 Flow Rate FiO2 06/25/17 11:18 97.8 86 18 210/99 (136) 96 06/25/17 08:58 Nasal Cannula 2.50 06/25/17 07:50 98.0 85 16 187/82 (117) 92 06/25/17 06:00 75 06/25/17 05:00 80 06/25/17 04:02 81 06/25/17 04:00 97.6 93 16 174/86 (115) 96 06/25/17 03:52 98 Nasal Cannula 2.00 06/25/17 03:00 80 06/25/17 02:00 86 06/25/17 01:00 72 06/25/17 00:00 98 Nasal Cannula 2.00 06/25/17 00:00 97.8 95 16 179/80 (113) 96 06/25/17 00:00 86 06/24/17 23:00 90 06/24/17 22:00 98 06/24/17 21:10 95 Nasal Cannula 3.00 06/24/17 21:00 92 06/24/17 20:00 106 06/24/17 20:00 98 Nasal Cannula 2.00 06/24/17 20:00 97.9 79 16 189/79 (115) 94 06/24/17 19:00 92 06/24/17 18:00 90 06/24/17 17:00 83 06/24/17 16:00 71 06/24/17 15:28 94 Nasal Cannula 2.00 06/24/17 15:28 97.6 81 16 151/70 (97) 94 06/24/17 15:00 73 06/24/17 14:00 74 06/24/17 13:00 100 I/O 06/24/17 06/24/17 06/24/17 06/25/17 06/25/17 06/25/17 07:00 15:00 23:00 07:00 15:00 23:00 Intake Total 0 ml 1235 ml 252 ml Output Total 300 ml 50 ml 50 ml Balance -300 ml 1185 ml 202 ml Intake Oral 0 ml 0 ml 0 ml IV Total 1235 ml 252 ml Gastric Drainage Total 300 ml 50 ml 50 ml # Voids 2 3 7 Physical Exam GENERAL: Intubated, pupils reactive, Alert, awake, oriented SKIN: Warm and dry. HEAD: Normocephalic. EYES: No scleral icterus. No injection or drainage. NECK: Supple, trachea midline. No JVD or lymphadenopathy. CARDIOVASCULAR: Irr Irr 2/6SEM no gallops, or rubs. RESPIRATORY: Vented. GASTROINTESTINAL: Abdomen soft, non-tender, nondistended. EXTREMITIES: No cyanosis, or +edema. Laboratory Laboratory Tests Test 06/25/17 04:37 Prothrombin Time 28.0 SEC Prothromb Time International Ratio 2.4 RATIO Imaging Last 24 hours Impressions Abdomen X-Ray 06/25/17 0000 Signed Impressions: Service Date/Time: Sunday, June 25, 2017 09:01 - CONCLUSION: 1. Mild air distention of small and large bowel in a nonobstructive pattern. The mildly dilated small bowel segments documented previously have mostly resolved. 2. Severe atherosclerotic disease. Alvin Cason MD Assessment and Plan Problem List: (1) Shock, postoperative ICD Codes: T81.10XA - Postprocedural shock unspecified, initial encounter Status: Resolved Plan: - Appreciate GI recs - Avoid electrolytes imbalance - Cont rate control for afib - Coumadin (H&H stable). Goal INR 2-3 - Out o bed to chair - PT/OT Stable from CV standpoint to d/c to Rehab (2) Pulmonary arterial thrombosis ICD Codes: I26.99 - Other pulmonary embolism without acute cor pulmonale Status: Acute (3) CAD (coronary artery disease) ICD Codes: I25.10 - Atherosclerotic heart disease of [place] coronary artery without angina pectoris (4) Aortic stenosis ICD Codes: I35.0 - Nonrheumatic aortic (valve) stenosis (5) DVT (deep venous thrombosis) ICD Codes: I82.409 - Acute embolism and thrombosis of unspecified deep veins of unspecified lower extremity Antoni-Brad Benavidez MD Jun 25, 2017 12:19
[2017-06-25] MEDS: ACETAMINOPHEN 650 MG/20.3 ML UDC PO PRN ×2 (13:15→22:33)
[2017-06-25] MEDS ORDERED: WARFARIN SOD 2 MG TAB PO SCH (16:00)
[2017-06-25] MEDS ORDERED: MELATONIN 5 MG TAB PO PRN (16:15)
[2017-06-26] VITALS (29 sets, daily range): BP systolic 147–171; BP diastolic 62–81; PULSE 70–95; RESP 16–30; TEMP 97.4–98; O2SAT 92–99
[2017-06-26] MEDS: hydrALAZINE HCL 20 MG/ML VIAL IV PUSH PRN (03:47)
[2017-06-26] MEDS: METOPROLOL TARTRATE 25 MG TAB PO SCH ×3 (05:10→22:00)
[2017-06-26] MEDS: LEVOTHYROXINE SODIUM 50 MCG TAB PO SCH (05:10)
[2017-06-26] MEDS: DILTIAZEM HCL 60 MG TAB PO SCH ×2 (05:10→15:30)
[2017-06-26] MEDS: METOCLOPRAMIDE HCL 10 MG/2 ML VIAL IV PUSH SCH ×3 (05:10→23:35)
[2017-06-26] MEDS: ACETAMINOPHEN 650 MG/20.3 ML UDC PO PRN (05:11)
[2017-06-26 05:30] LABS: INTERNATIONAL NORMALIZED RATIO 3.3 RATIO; PROTHROMBIN TIME - PATIENT 37.9 SEC (9.8-11.6)
[2017-06-26] MEDS: RESP: BUDESONIDE 0.5 MG/2 ML NEB NEB SCH (08:19)
[2017-06-26] MEDS: POTASSIUM CHLORIDE 25 MEQ EFFERVESCENT TAB PO SCH ×2 (09:28→21:00)
[2017-06-26] MEDS: LOSARTAN 50 MG TAB PO SCH (09:28)
[2017-06-26] MEDS: LINEZOLID 600 MG TAB PO SCH ×2 (09:28→21:00)
[2017-06-26] MEDS: DIGOXIN 0.125 MG TAB PO SCH (09:28)
[2017-06-26] MEDS: LEVOFLOXACIN 250 MG TAB PO SCH (09:29)
[2017-06-26] MEDS: ELTROMBOPAG 50 MG TAB PO SCH (09:29)
[2017-06-26] MEDS: POLYETHYLENE GLYCOL 17 GM PKG PO SCH (09:29)
[2017-06-26] MEDS: DOCUSATE SODIUM 100 MG/10 ML UDC PO SCH ×2 (09:30→21:00)
[2017-06-26] MEDS: NYSTATIN SUSP 500,000 U/5 ML CUP SWISH-SWAL SCH ×4 (09:30→21:00)
[2017-06-26] MEDS: guaiFENesin E.R. 600 MG TAB PO SCH ×2 (09:30→21:00)
[2017-06-26] MEDS: PANTOPRAZOLE SODIUM 40 MG VIAL IV PUSH SCH (09:30)
[2017-06-26] MEDS: FUROSEMIDE 20 MG/2 ML VIAL IV PUSH SCH ×2 (09:31→21:00)
--- NOTE | 2017-06-26 10:04 | RADRPT ---
EXAM DATE/TIME: 06/26/2017 08:51 [facility] COMPARISON: TRANSCATH IV OCCLUSSION, June 03, 2017, 0:00. ANGIOGRAM, PULMONARY, LEFT, June 03, 2017, 0:00. CT THORAX W/O CONTRAST, June 05, 2017, 8:47. INDICATIONS : Urinary retention. MEDICAL HISTORY : Hypothyroidism. Congestive heart failure. Hypercholesterolemia. Syncope. Migraines. Coronary artery d isease. Afib. Aortic stenosis. Mitral valve disease. HTN. Hiatal hernia. GERD. Depression. MRSA. SURGICAL HISTORY : Tonsillectomy. Pacemaker. Ventral hernia repair. Repair of left femoral artery. ENCOUNTER: Initial ACUITY: 2 days PAIN SCORE: 0/10 LOCATION: Bilateral flank MEASUREMENTS: RIGHT KIDNEY: 10.7 x 4.7 x 4.5 cm LEFT KIDNEY: 10.7 x 4.9 x 4.8 cm FINDINGS: RIGHT KIDNEY: Renal cortex is normal in thickness and echotexture. No hydronephrosis, stone, or mass. LEFT KIDNEY: Renal cortex is normal in thickness and echotexture. No hydronephrosis, stone, or mass. BLADDER: Within normal limits given the degree of distension. CONCLUSION: Normal examination. Alvin Walls MD on June 26, 2017 at 9:57 Board Certified Radiologist. This report was verified electronically.
--- NOTE | 2017-06-26 11:47 | HHI.PR ---
Subjective Remarks [employer] Polisher Notes: I was emergently called to labor commissioner by Dr. Corrales. Ms. Mahoney who is 89 yo female with history of severe aortic stenosis was undergoing left and right heart catheter for TAVR evaluation. With right heart catheterization patient developed acute massive hemoptysis with shock secondary to acute rupture of pulmonary artery. Patient was intubated by Dr. Potter and ETT was advance to Right lung for selective right lung ventilation due to massive hemorrhage from Left lung. On my arrival to labor commissioner, patient was rapidly dropping blood pressure. Dopamine was already started. I ordered Shantanu-Synephrine, at 300 mcg/ m in an attempt to increase MAP and also increase the pulmonary vasoconstriction. Levophed was also added to maintain blood pressure and rapidly titrated up. Emergency release blood initially 3 units was ordered stat along with 2 units of FFP, 1 unit of platelet. I also emergently contacted Dr. Vásquez was in the office. (Dr. Bedoya the on-call CT surgeon was operating). While on Levophed Shantanu-Synephrine and dopamine, patient developed coarse V. fib/V. tach, received brief CPR, and was DC cardioverted 1 with return of spontaneous circulation and sinus rhythm. I discussed with Dr. Corrales and anesthesiologist, I also contacted Dr. Josue from invasive radiology.Dr. Joseu immediately arrived to the labor commissioner. Dr. Abdelrahman francis performed PARVIN which showed vigorous LV contraction but cavity was empty. Received Continuous massive fluid resuscitation with multiple crystalloid boluses, bicarbonate and calcium. Blood arrived and initially 3 units of PRBC, 2 units of 1 unit of platelets was given with calcium total 3 g given after blood transfusion. Because of persistent hypotension, additional 2 units of PRBC was given. While I resuscitated the patient, Dr. Corrales and Dr. Jennings performed right heart cath, identified bleeding of a small branch in the left pulmonary artery. They put put in 6 coils in the lower left lower pulmonary artery followed with Gelfoam closing the perforation. 06/04: Emergency chest 2 yesterday for right pneumothorax with hypotension and hypoxia. Remains intubated sedated and on Levophed. FiO2 remains at 100%, Sat improving to 94-95 %. UO adequate overnight. 2-D echo on my review normal LV and RV function, no PFO on bubble study 06/05: Patient is in atrial fibrillation currently on Cardene infusion for blood pressure control. Chest x-ray shows percutaneous emphysema and small apical pneumothorax. Remains on 80% FiO2. I discussed with interventional radiology. We will attempt CT-guided repositioning of the pigtail catheter and possibly upgrading to a larger tube. Urine output adequate 750 mL in 24 hours 06/06: Currently remains in A. fib with rate controlled, hypertensive on Cardizem drip. Oxygen saturation has improved FiO2 now to 40% with saturation 97%. Urine output excellent with Lasix 4.5 L in 24 hours. Chest x-ray today shows 2.5 cm bilateral apical pneumothorax, also left side has 1.2 cm lateral pneumothorax 06/07: Intubated, on low dose propofol for ventilator synchrony. FiO2 40% oxygen saturation 99%. Chest x-ray and labs pending urine output 2.7 L. 3 chest tubes with no air leak. If neuro exam not improving off sedation will check CT of the head. Currently on propofol will slip box changer to Precedex to initiate weaning trials. On weaning doses of inhaled Flolan currently on 30, 000 ng 06/08: Remains intubated, mild sedation with Precedex. Overnight FiO2 increased to 65% for hypoxia. CXR left more than right consolidation of lower lobes. Sputum positive for MRSA on vancomycin. Bilateral lower extremity US studies yesterday showed DVT, initiated on IV heparin. Currently therapeutic on heparin. No evidence of pulmonary hemorrhage. Neuro exam is improving weekly follows commands all 4 extremities 06/09: remains intubated. failed CPAP yesterday. on Cleviprex and precedex. fio2 back to 40%. CXR improved aeration with the exception of known LLL. FC x 4. 06/10: failed SBT again for apnea. but much more awake. denies pain. ROS negative. off cleviprex. new air leak in chest tube. will get chest xray to re- eval. 06/11: Warm, well perfused. Alert, cooperative. Communicates with head nod, hand gestures. Comfortable respiratory pattern and acceptable excursions.Air leaks will seal when off positive pressure ventilation. FiO2 to 0.80 last night briefly; now 0.40. I'll come back later today and see if I can get her extubated. 06/12: Required re-intubation for hypoxemic respiratory failure last evening. She is now warm with well perfused fingers and toes. Low dose levophed not hampering peripheral perfusion. Mild prerenal azotemia. CXR with diffuse infiltrates as before. WBC 32,00, afebrile. Must assume colonized lungs at least. Antibiotic coverage is appropriate. Reculture sputum, urine. Progress to weaning trials daily.Hemodynamics appear excellent, rate a minor problem pretty well controlled. Continue Vanc. Stop pip/roxi, start cefepime. Narrow after cultures. Change CVLs, draw blood cultures. 06/13: Persistent leukocytosis, Tmax 100.2. O2 diffusion acceptable on positive pressure ventilation. Sputum culture pending. Remains warm and well perfused. Continue daily spontaneous breathing trials. 06/14: Bronch and BAL this morning by Dr. Muñoz. Gas exchange remains acceptable. Continue SBTs. 06/15: Looks great on SBTs/CPAP. She would benefit from a temporary tracheostomy. But she will eventually be off and extubated for good. C&S pending from BAL. Continue present abx regimen - discussed with Dr. Segura. 06/16: Awake alert following commands on vent. Currently on Precedex 0.5 g per KG per hour. Still has large amount of ETT secretions, but improving. R pigtail dislodged with turning, no pneumo on repeat CXR 06/17: Awake alert on low dose Precedex. Tolerated CPAP yesterday. Not extubated yesterday due copious bloody secretions. The chest x-ray shows some interval improvement and secretions slightly improved. Will proceed with SBT and possible extubation 06/18: Extubated yesterday tolerating very well. Coughing up sputum, cough seems adequate. Slight increase in WBC to 19.1. Received single dose of Decadron yesterday. Overall doing well communicating, no fever 06/19: WBC count slightly improved 17.9. Otherwise breathing comfortably. Single episode of delirium overnight. Will remove Payne today and also remove right chest tube 06/20: Up in chair, labs pending. CXR showing slight increase in L effusion. Will check bedside US. Hospitalist Notes: 06/21: Stable in her bedroom in sitting position eating her breakfast, no complaint, no nausea, vomit or diarrhea, on contact precautions, vital signs stable as per ID specialist Doctor Imelda recommended to continue Levaquin and Zyvox Oral for 7 to 10 days and follow CXR periodically and as clinically necessary, follow CBC and Platelet count, Bicarbonate while on Zyvox. 06/22: Seen in her bedroom and discussed with nurse Mr. Deleon, no nausea, vomit or diarrhea. working with PT. tomorrow will be followed by her Primary welding process specialist and probable discharge to Rehab facility. 06/23: Seen in her bedroom in the presence of nurse Miss Crowley the patient today distended asked for KUB, that came positive for probable Ileus asked for GI specialist consult and started on IV fluids the patient is not able to take by mouth is been vomiting refusing medicines. 06/24: Stable seen by GI specialist she continue with Abdominal distention, recommended to continue NG to LIWS, NPO, Metoclopramide Discussed with nurse Miss Crowley. 06/25: Seen in her bedroom and discussed with nurse Miss Gonzalez she continue with NG tube but taking liquids, no nausea, vomit or diarrhea, improving her abdominal distention. asked by GI specialist for new KUB, also considering a trail of Relistor, recommended to continue Clear liquids, Continue Reglan. 06/26: Patient stable in her bedroom having liquid diet and as per Gi specialist recommended to try Relistor x 1 advanced to full liquid diet advance as tolerated, Removed NG tube, continue Reglan and Miralax, no nausea, vomit or diarrhea. Objective Vital Signs Date Time Temp Pulse Resp B/P (MAP) Pulse Ox O2 Delivery O2 Flow Rate FiO2 06/26/17 08:20 99 Nasal Cannula 2.00 06/26/17 07:30 98 Nasal Cannula 2.00 06/26/17 07:30 97.8 74 16 154/72 (99) 98 06/26/17 06:00 82 06/26/17 05:00 88 06/26/17 04:30 147/67 (93) 06/26/17 04:00 80 06/26/17 03:30 97.4 88 20 166/74 (104) 93 06/26/17 03:30 93 Nasal Cannula 2.00 06/26/17 03:00 78 06/26/17 02:00 70 06/26/17 01:00 77 06/26/17 00:00 84 06/25/17 23:00 87 06/25/17 23:00 97.5 89 18 178/73 (108) 97 06/25/17 23:00 97 Nasal Cannula 2.00 06/25/17 22:00 80 06/25/17 21:00 97.6 95 18 162/70 (100) 96 06/25/17 21:00 92 06/25/17 21:00 96 Nasal Cannula 2.50 06/25/17 20:00 78 06/25/17 19:00 76 06/25/17 18:00 70 06/25/17 17:00 83 06/25/17 16:00 80 06/25/17 15:45 97.7 80 18 140/65 (90) 94 06/25/17 15:29 94 Nasal Cannula 2.00 06/25/17 15:00 75 06/25/17 14:00 72 06/25/17 13:00 138/63 (88) 06/25/17 13:00 84 06/25/17 12:00 86 I/O 06/25/17 06/25/17 06/25/17 06/26/17 06/26/17 06/26/17 07:00 15:00 23:00 07:00 15:00 23:00 Intake Total 252 ml 480 ml 930 ml Output Total 50 ml 1450 ml Balance 202 ml 480 ml -520 ml Intake Oral 0 ml 480 ml 600 ml IV Total 252 ml 330 ml Output Urine Total 1450 ml Stool Total 0 ml Gastric Drainage Total 50 ml 0 ml Bladder Scan Volume Amount 999 ml 330 ml 367 ml # Voids 7 7 1 Result Diagram: 06/24/17 0500 06/24/17 0500 Imaging Last Impressions Renal Ultrasound 06/26/17 0000 Signed Impressions: Service Date/Time: June 08:51 - CONCLUSION: Normal examination. Alvin Walls MD Abdomen X-Ray 06/25/17 0000 Signed Impressions: Service Date/Time: Sunday, June 25, 2017 09:01 - CONCLUSION: 1. Mild air distention of small and large bowel in a nonobstructive pattern. The mildly dilated small bowel segments documented previously have mostly resolved. 2. Severe atherosclerotic disease. Alvin Cason MD Chest X-Ray 06/21/17 0600 Signed Impressions: Service Date/Time: Wednesday, June 21, 2017 05:07 - CONCLUSION: Increased bilateral pulmonary opacity suggesting pulmonary edema. No change in bilateral pleural effusions. Pawan You MD Tunnelled Chest Tube Removal 10/27/17 0000 Signed Impressions: Service Date/Time: Tuesday, June 13, 2017 00:00 - CONCLUSION: Uncomplicated chest tube removal. Joselo Jennings MD Upper Extremity Ultrasound 06/07/17 Signed Impressions: Service Date/Time: Wednesday, June 07, 2017 18:21 - CONCLUSION: 1. Limited exam but no deep venous thrombosis is identified bilaterally. Jamie Corrales MD Lower Extremity Ultrasound 06/07/17 Signed Impressions: Service Date/Time: Wednesday, June 07, 2017 17:57 - CONCLUSION: 1. Positive bilateral lower extremity deep venous thrombosis, nonocclusive as above. Jamie Corrales MD Head CT 06/07/17 Signed Impressions: Service Date/Time: Wednesday, June 07, 2017 17:01 - CONCLUSION: 1. No acute intracranial abnormality. 2. Extensive subcutaneous air tracking up from the chest. Luc Cain Jr., MD Cervical Spine CT 06/07/17 Signed Impressions: Service Date/Time: Wednesday, June 07, 2017 17:01 - CONCLUSION: 1. Extensive subcutaneous emphysema. 2. Tiny left apical pneumothorax. 3. Diffuse mild degenerative changes without central canal stenosis. Multilevel neural foraminal narrowing. 4. Prevertebral soft tissues obscured by an endotracheal tube and nasogastric tube. Luc Cain Jr., MD Chest Tube Insertion 06/05/17 Signed Impressions: Service Date/Time: May 09:15 - CONCLUSION: Uncomplicated chest tube placement as above. Maxwell Aldana MD Chest CT 06/05/17 Signed Impressions: Service Date/Time: May 08:47 - CONCLUSION: 1. Moderate left-sided hemothorax with associated left lower lobe consolidation which may reflect a combination of compressive atelectasis, aspiration, and potentially lung infarction given recent pulmonary artery embolization. 2. Trace right apical pneumothorax with large bore chest tube in the major fissure and smallbore chest tube in the soft tissues. Significant subcutaneous emphysema extending to the cervicothoracic junction bilaterally. 3. Airspace consolidation in the right lower lobe posteriorly may reflect aspiration. Maxwell Aldana MD Embolization 06/03/17 Signed Impressions: Service Date/Time: Saturday, June 03, 2017 00:00 - CONCLUSION: Left pulmonary artery rupture with successful coil embolization of a lower lobe branch vessel as above. Joselo Jennings MD Other Results Laboratory Tests Test 06/03/17 18:10 06/04/17 04:15 06/05/17 10:15 06/07/17 06:48 Acanthocytes 1+ Nasal Screen MRSA (PCR) MRSA NOT DETECTED Fibrinogen 374 mg/dL Thyroid Stimulating Hormone 3rd Gen 2.470 uIU/ML Test 06/08/17 04:30 06/09/17 04:30 06/11/17 20:14 06/12/17 04:20 Myelocytes 1 % Ovalocytes 1+ Vancomycin Level Trough 25.5 MCG/ML Eosinophils % 1 % Metamyelocytes 1 % Digoxin Level 1.3 NG/ML Test 06/12/17 08:20 06/13/17 05:20 06/13/17 08:36 06/13/17 22:00 Urine Renal Epithelial Cells 1 /hpf Urine Yeast with Hyphae MANY Random Vancomycin Level 20.8 COMMENT Lactic Acid Level 1.3 mmol/L Direct Bilirubin 0.6 MG/DL Indirect Bilirubin 0.7 MG/DL C-Reactive Protein High Sensitivity 74.7 mg/L Lipase 183 U/L Urine Yeast (Budding) MANY Test 06/14/17 04:13 06/16/17 04:00 06/16/17 08:57 06/17/17 05:10 Differential Total Cells Counted 100 Neutrophils % (Manual) 90 % Band Neutrophils % 5 % Lymphocytes % 2 % Monocytes % 3 % Neutrophils # (Manual) 30.5 TH/MM3 Platelet Estimate NORMAL Platelet Morphology Comment NORMAL Red Cell Morphology Comment NORMAL B-Type Natriuretic Peptide 369 PG/ML Blood Gas Puncture Site RT RADIAL Blood Gas Patient Temperature 98.6 Blood Gas HCO3 27 mmol/L Blood Gas Base Excess 3.6 mmol/L Blood Gas Oxygen Saturation 97 % Arterial Blood pH 7.48 Arterial Blood Partial Pressure CO2 37 mmHg Arterial Blood Partial Pressure O2 137 mmHg Arterial Blood Oxygen Content 17.2 Vol % Arterial Blood Carboxyhemoglobin 1.3 % Arterial Blood Methemoglobin 1.2 % Blood Gas Hemoglobin 12.5 G/DL Oxygen Delivery Device VENTILATOR Blood Gas Ventilator Setting [id number]/PS5 Blood Gas Inspired Oxygen 40 % Protein Corrected Calcium 8.5 MG/DL Test 06/19/17 03:51 06/19/17 06:45 06/21/17 09:06/24/17 05:00 Hematology Comments Urine Color YELLOW Urine Turbidity CLEAR Urine pH 6.0 Urine Specific Conifer 1.017 Urine Protein TRACE mg/dL Urine Glucose (UA) NEG mg/dL Urine Ketones NEG mg/dL Urine Occult Blood NEG Urine Nitrite NEG Urine Bilirubin NEG Urine Urobilinogen LESS THAN 2.0 MG/DL Urine Leukocyte Esterase SMALL Urine RBC 1 /hpf Urine WBC 5 /hpf Urine WBC Clumps RARE Urine Squamous Epithelial Cells <1 /hpf Urine Bacteria RARE /hpf Urine Hyaline Casts 1 /lpf Urine Mucus FEW /lpf Microscopic Urinalysis Comment CATH-CULTURE IND Blood Urea Nitrogen 19 MG/DL 26 MG/DL Creatinine 0.71 MG/DL 0.83 MG/DL Random Glucose 90 MG/DL 102 MG/DL Total Protein 6.2 GM/DL Albumin 2.2 GM/DL Calcium Level 8.7 MG/DL 8.6 MG/DL Alkaline Phosphatase 136 U/L Aspartate Amino Transf (AST/SGOT) 34 U/L Alanine Aminotransferase (ALT/SGPT) 40 U/L Total Bilirubin 0.7 MG/DL Sodium Level 137 MEQ/L 136 MEQ/L Potassium Level 4.3 MEQ/L 4.0 MEQ/L Chloride Level 98 MEQ/L 100 MEQ/L Carbon Dioxide Level 29.2 MEQ/L 27.2 MEQ/L White Blood Count 7.9 TH/MM3 Red Blood Count 3.72 MIL/MM3 Hemoglobin 11.3 GM/DL Hematocrit 32.9 % Mean Corpuscular Volume 88.4 FL Mean Corpuscular Hemoglobin 30.2 PG Mean Corpuscular Hemoglobin Concent 34.2 % Red Cell Distribution Width 16.6 % Platelet Count 122 TH/MM3 Mean Platelet Volume 7.2 FL Neutrophils (%) (Auto) 87.9 % Lymphocytes (%) (Auto) 6.2 % Monocytes (%) (Auto) 5.4 % Eosinophils (%) (Auto) 0.1 % Basophils (%) (Auto) 0.4 % Neutrophils # (Auto) 6.9 TH/MM3 Lymphocytes # (Auto) 0.5 TH/MM3 Monocytes # (Auto) 0.4 TH/MM3 Eosinophils # (Auto) 0.0 TH/MM3 Basophils # (Auto) 0.0 TH/MM3 CBC Comment DIFF FINAL Differential Comment Activated Partial Thromboplast Time 36.7 SEC Phosphorus Level 3.4 MG/DL Magnesium Level 1.8 MG/DL Anion Gap 9 MEQ/L Estimat Glomerular Filtration Rate 65 ML/MIN Test 06/26/17 04:34 Prothrombin Time 37.9 SEC Prothromb Time International Ratio 3.3 RATIO Objective Remarks GENERAL: No acute distress. SKIN: Skin/dry. ENT: Oral cavity is moist NECK: Trachea midline. Supple. CARDIOVASCULAR: Irregular rate and rhythm. RESPIRATORY: Decreased breath sounds bilateral. no wheezing or crackles. GASTROINTESTINAL: Improving Distention. MUSCULOSKELETAL: no clubbing, cyanosis or edema. NEUROLOGICAL: No focal deficits. Medications and IVs Current Medications Medications (Trade) Dose Ordered Sig/Padmini Route Start Time Stop Time Status Last Admin (Peridex 0.12% Liq) 15 ml BID@08,20 MT 06/03/17 20:00 06/17/17 08:00 (Duoneb Neb) 1 ampule Q2HR NEB PRN NEB 06/03/17 19:00 06/15/17 19:56 (K-Lyte Cl Eff) 50 meq UNSCH PRN PO 06/03/17 19:15 (Mag-Ox) 800 mg UNSCH PRN PO 06/03/17 19:15 (K-Phos) 2,000 mg Q4H PRN PO 06/03/17 19:15 (K-Phos) 2,000 mg UNSCH PRN PO/TUBE 06/03/17 19:15 (D50w (Vial) Inj) 50 ml UNSCH PRN IV PUSH 06/04/17 12:15 (Glucagon Inj) 1 mg UNSCH PRN OTHER 06/04/17 12:15 (Lopressor Inj) 1.25 mg Q6H PRN IV PUSH 06/04/17 19:15 06/06/17 20:29 (Colace Liq) 100 mg Q12HR PO 06/05/17 14:00 06/26/17 09:30 (K-Lyte Cl Eff) 25 meq Q12HR PO 06/05/17 14:00 06/26/17 09:28 (Lanoxin) 0.125 mg DAILY PO 06/06/17 09:00 06/26/17 09:28 (Lopressor) 25 mg Q8HR PO 06/07/17 14:00 06/26/17 05:10 (Cozaar) 50 mg DAILY PO 06/07/17 09:00 06/26/17 09:28 (Apresoline Inj) 20 mg Q4H PRN IV PUSH 06/07/17 08:00 06/26/17 03:47 (Synthroid) 50 mcg DAILY@0600 PO 06/07/17 08:00 06/26/17 05:10 (Promacta) 25 mg DAILY@1000 PO 06/08/17 10:00 06/26/17 09:29 (Pill Splitter) 1 ea UNSCH PRN OTHER 06/07/17 22:15 (NovoLOG SUPPLEMENTAL SCALE) 1 BID@0800,2000 SQ 06/08/17 20:00 06/15/17 08:43 (Mycostatin Liq) 5 ml QID SWISH-SWAL 06/12/17 13:00 06/26/17 09:30 (Pulmicort Respule Neb) 0.5 mg Q12HR NEB NEB 06/16/17 11:15 06/26/17 08:19 (Tylenol 650 Mg/ 20 ml Liq) 650 mg Q6H PRN PO 06/18/17 06:30 06/26/17 05:11 (Lasix Inj) 20 mg Q12H IV PUSH 06/19/17 09:00 06/26/17 09:31 (Zyvox) 600 mg Q12HR PO 06/19/17 21:00 06/26/17 09:28 Pharmacy Profile Note 0 ml @ 0 mls/hr UNSCH OTHER 06/20/17 10:00 (Zofran Inj) 4 mg Q6H PRN IV PUSH 06/22/17 19:30 06/23/17 08:40 (Cardizem) 90 mg Q6HR PO 06/23/17 12:00 06/26/17 05:10 (Mucinex Er) 600 mg BID PO 06/23/17 10:15 06/26/17 09:30 (Levaquin) 250 mg Q24H PO 06/24/17 09:00 06/26/17 09:29 Sodium Chloride 1,000 ml @ 84 mls/hr [id number] IV 06/23/17 13:45 06/25/17 22:34 (Protonix Inj) 40 mg DAILY IV PUSH 06/24/17 09:00 07/17/17 09:00 06/26/17 09:30 (Reglan Inj) 5 mg Q8HR IV PUSH 06/23/17 17:45 06/26/17 05:10 (Vasotec Inj) 1.25 mg Q6H PRN IV PUSH 06/25/17 08:45 (Coumadin) 2 mg DAILY@1600 PO 06/25/17 16:00 Future Hold 06/25/17 16:00 (Miralax) 17 gm DAILY PO 06/25/17 09:45 06/26/17 09:29 (Melatonin) 5 mg HS PRN PO 06/25/17 16:15 (Relistor Inj) 12 mg ONCE ONCE SQ 06/26/17 11:45 06/26/17 11:46 UNV A/P Assessment and Plan This is a pleasant 89 y/o Female with Severe Aortic Stenosis, with complicated Pulmonary Artery Rupture while on right heart catheterization, traumatic pneumothorax secondary to Barotrauma, acute Hypoxic respiratory failure, MRSA Healthcare associated Pneumonia, volume overload. extubated 06/17/17. 1. Metabolic Encephalopathy Resolved, continue on hold Sertraline, has Tylenol PRN CT of the head and C-Spine negative for acute injury 2. Left Lower Pulmonary artery rupture with massive Hemorrhage/Acute Hypoxemic respiratory failure/MRSA Pneumonia Large Left Hemothorax status post IR chest tube placement, residual Left pneumo after evacuation Bilateral apical Pneumothorax Bilateral lower extremity DVT Bilateral Effusion Left greater than Right - s/p coil and Gelfoam closure of Left lower pulmonary artery (peripheral small branch) by Rhoda Corrales and Michaela (see resuscitation note on 06/03/17) - Extubated 06/16/17, tolerating well. (Required re-intubation 06/02 for hypoxemia) - Chest x-ray LLL pneumonia vs lung infarct. Sputum with MRSA. on Zyvox, Levaquin. CXR 06/20/17 slight increase in L effusion - s/p chest tube x2 for right pneumothorax on 06/03. New apical chest tube placed 06/06/17 - IR, placed 24 F Left chest tube 06/05 with drainage of 2 L hemothorax, residual pneumothorax present, now resolved - CXR 06/07, resolution of right improving subcutaneous emphysema. Small residual left apical pneumo - s/p Bronchoscopy with removal of blood predominantly from L lung, s/p repeat bronch 06/06, 06/15 - DuoNeb q 6hours and PRN. INH Budesonide, Single dose of Decadron 6 mg IV x1 10/31 - Venous duplex -bilateral lower extremity DVT. IV heparin started 06/07/17 therapeutic. Coumadin started 06/19 - Removed R chest tube 06/19 3. Hemorrhagic shock Resolved Bilateral Lower extremity DVT/Anemia requiring transfusion/Sever Aortic Stenosis/Atrial Fibrillation with RVR/Possible history of ITP - IV heparin started 06/07/17 for bilateral lower extremity DVT and atrial fibrillation, on coumadin since 06/19 - Continue home Cardizem CD 120 mg daily. - Cleviprex, when necessary hydralazine (well beta blocked) to keep systolic blood pressure less than 150 - Continue IV Lasix, 20 mg IV q12. Home metoprolol at 25 mg by mouth every 8 hours. Home dose of digoxin - On Multaq at home. Defer to Dr. Corrales - Received 6 units of emergency release blood, 2 units of FFP and one of platelets 06/03/17. Multiple crystalloid boluses were given, PARVIN normal LV contractility, volume depletion - 2D Echo 06/04 RV LV function look normal, no PFO - Promacta for ITP - hydralazine 50mg po q8hr and losartan 100mg daily (06/09). now off cleviprex. as per welding process specialist asael for discharge to Rehab. 4. MRSA Pneumonia on Levaquin and Zyvox, 06/21 as per ID specialist Doctor Imelda recommended to continue Levaquin and Zyvox Oral for 7 to 10 days and follow CXR periodically and as clinically necessary, follow CBC and Platelet count, Bicarbonate while on Zyvox. 5. Ileus today patient distended will continue IV fluids 84 ml per hour and follow, GI consult, KUB positive for Ileus. Improving asked for new KUB by GI specialist and following, advanced diet as tolerated. trial of Relistor. continue Reglan and Miralax. 6. Hypertension uncontrolled added Clonidine. 6. Acute kidney injury Improved. As Always a Pleasure to talk with Interventional Supervisor [employer] Manufacturing Doctor Brad Page he wants his patient to be Transferred as soon as possible to [facility] probable tomorrow if continue Improving. Appreciated. PROPH: - DCd SCDs due to DVT. IV Protonix. IV heparin started 06/07, Warfarin by mouth not yet therapeutic INR 3.5 therapeutic. Warfarin on hold today. Discharge Planning Expected in am tomorrow will be transferred to [facility] ready for transfer if okay with GI specialist Doctor Yoly Licona. Jamar Samuels MD Jun 26, 2017 11:47
--- NOTE | 2017-06-26 11:54 | HHI.GIFU ---
Subjective Remarks Resting in bed. Respirations even/shallow, not labored. No n/v. Would like NGT out. Abdomen soft, nondistended. Tolerating liquids. Still no bm. (Sabine Moncada) Objective Vitals I&O Vital Signs Date Time Temp Pulse Resp B/P (MAP) Pulse Ox O2 Delivery O2 Flow Rate FiO2 06/26/17 08:20 99 Nasal Cannula 2.00 06/26/17 07:30 98 Nasal Cannula 2.00 06/26/17 07:30 97.8 74 16 154/72 (99) 98 06/26/17 06:00 82 06/26/17 05:00 88 06/26/17 04:30 147/67 (93) 06/26/17 04:00 80 06/26/17 03:30 97.4 88 20 166/74 (104) 93 06/26/17 03:30 93 Nasal Cannula 2.00 06/26/17 03:00 78 06/26/17 02:00 70 06/26/17 01:00 77 06/26/17 00:00 84 06/25/17 23:00 87 06/25/17 23:00 97.5 89 18 178/73 (108) 97 06/25/17 23:00 97 Nasal Cannula 2.00 06/25/17 22:00 80 06/25/17 21:00 97.6 95 18 162/70 (100) 96 06/25/17 21:00 92 06/25/17 21:00 96 Nasal Cannula 2.50 06/25/17 20:00 78 06/25/17 19:00 76 06/25/17 18:00 70 06/25/17 17:00 83 06/25/17 16:00 80 06/25/17 15:45 97.7 80 18 140/65 (90) 94 06/25/17 15:29 94 Nasal Cannula 2.00 06/25/17 15:00 75 06/25/17 14:00 72 06/25/17 13:00 138/63 (88) 06/25/17 13:00 84 06/25/17 12:00 86 I/O 06/25/17 06/25/17 06/25/17 06/26/17 06/26/17 06/26/17 07:00 15:00 23:00 07:00 15:00 23:00 Intake Total 252 ml 480 ml 930 ml Output Total 50 ml 1450 ml Balance 202 ml 480 ml -520 ml Intake Oral 0 ml 480 ml 600 ml IV Total 252 ml 330 ml Output Urine Total 1450 ml Stool Total 0 ml Gastric Drainage Total 50 ml 0 ml Bladder Scan Volume Amount 999 ml 330 ml 367 ml # Voids 7 7 1 Laboratory Laboratory Tests Test 06/26/17 04:34 Prothrombin Time 37.9 Prothromb Time International Ratio 3.3 Date/Time Source Procedure Growth Status 06/12/17 15:24 Blood Peripheral Aerobic Blood Culture - Final NO GROWTH IN 5 DAYS Complete 06/12/17 15:24 Blood Peripheral Anaerobic Blood Culture - Final NO GROWTH IN 5 DAYS Complete 06/09/17 09:45 Stool Stool Stool Occult Blood (KIM) - Final HEMOCCULT POSITIVE Complete 06/14/17 12:00 Bronchial Washings Left Lower Lobe Gram Stain - Final Complete 06/14/17 12:00 Bronchial Culture - Final S. Aureus Mrsa Complete 06/19/17 06:45 Urine Catheterized Urine Urine Culture - Final NO GROWTH IN 48 HOURS. Complete 06/12/17 13:20 Catheter Tip Central Venous Line Wound Culture - Final NO GROWTH IN 48 HOURS. Complete Imaging Last Impressions Renal Ultrasound 06/26/17 0000 Signed Impressions: Service Date/Time: June 08:51 - CONCLUSION: Normal examination. Alvin Walls MD Abdomen X-Ray 06/25/17 0000 Signed Impressions: Service Date/Time: Sunday, June 25, 2017 09:01 - CONCLUSION: 1. Mild air distention of small and large bowel in a nonobstructive pattern. The mildly dilated small bowel segments documented previously have mostly resolved. 2. Severe atherosclerotic disease. Alvin Cason MD Chest X-Ray 06/21/17 0600 Signed Impressions: Service Date/Time: Wednesday, June 21, 2017 05:07 - CONCLUSION: Increased bilateral pulmonary opacity suggesting pulmonary edema. No change in bilateral pleural effusions. Pawan You MD Tunnelled Chest Tube Removal 06/13/17 0000 Signed Impressions: Service Date/Time: Tuesday, June 13, 2017 00:00 - CONCLUSION: Uncomplicated chest tube removal. Joselo Jennings MD Upper Extremity Ultrasound 06/07/17 0000 Signed Impressions: Service Date/Time: Wednesday, June 07, 2017 18:21 - CONCLUSION: 1. Limited exam but no deep venous thrombosis is identified bilaterally. Jamie Corrales MD Lower Extremity Ultrasound 06/07/17 Signed Impressions: Service Date/Time: Wednesday, June 07, 2017 17:57 - CONCLUSION: 1. Positive bilateral lower extremity deep venous thrombosis, nonocclusive as above. Jamie Corrales MD Head CT 06/07/17 Signed Impressions: Service Date/Time: Wednesday, June 07, 2017 17:01 - CONCLUSION: 1. No acute intracranial abnormality. 2. Extensive subcutaneous air tracking up from the chest. Luc Cain Jr., MD Cervical Spine CT 06/07/17 Signed Impressions: Service Date/Time: Wednesday, June 07, 2017 17:01 - CONCLUSION: 1. Extensive subcutaneous emphysema. 2. Tiny left apical pneumothorax. 3. Diffuse mild degenerative changes without central canal stenosis. Multilevel neural foraminal narrowing. 4. Prevertebral soft tissues obscured by an endotracheal tube and nasogastric tube. Luc Cain Jr., MD Chest Tube Insertion 06/05/17 Signed Impressions: Service Date/Time: May 09:15 - CONCLUSION: Uncomplicated chest tube placement as above. Maxwell Aldana MD Chest CT 06/05/17 Signed Impressions: Service Date/Time: May 08:47 - CONCLUSION: 1. Moderate left-sided hemothorax with associated left lower lobe consolidation which may reflect a combination of compressive atelectasis, aspiration, and potentially lung infarction given recent pulmonary artery embolization. 2. Trace right apical pneumothorax with large bore chest tube in the major fissure and smallbore chest tube in the soft tissues. Significant subcutaneous emphysema extending to the cervicothoracic junction bilaterally. 3. Airspace consolidation in the right lower lobe posteriorly may reflect aspiration. Maxwell Aldana MD Embolization 06/03/17 Signed Impressions: Service Date/Time: Saturday, June 03, 2017 00:00 - CONCLUSION: Left pulmonary artery rupture with successful coil embolization of a lower lobe branch vessel as above. Joselo Jennings MD Physical Exam HEENT: Normocephalic; atraumatic; no jaundice. CHEST: Resp. shallow, diminished CARDIAC: Irregular, systolic murmur. ABDOMEN: Soft, NONdistended, NONtender; no hepatosplenomegaly; bowel sounds are present in all four quadrants. EXTREMITIES: Generalized edema. CERTIFIED FAMILY MEDIATOR: Lethargic (Sabine Moncada) Assessment and Plan Plan ASSESSMENT: - Ileus/Constipation. KUB (06/23/17)---> Nonspecific bowel gas pattern with some air filled loops of mildly dilated small bowel and nondilated colon. This may be an ileus. S/P SSE x 2 on 06/23 , no response per nurse. Has not had bowel movement since. Last BM 06/21. Clinically, no n/v. KUB ()---> Mild air distention of small and large bowel in a nonobstructive pattern. The mildly dilated small bowel segments documented previously have mostly resolved. 2. Severe atherosclerotic disease. Reglan. Miralax daily. Clinically much improved, Abdomen soft, nondistended, no n/v, tolerating clear liquids. NGT removed. Will advance to full liquid diet. Trial of Relistor x 1. - Anemia. S/P 6 units PRBC, 4 units FFP, 1 platelet pack. Stable. - Severe aortic stenosis, S/P left and right heart catheter for TAVR evaluation. Developed right heart catheterization patient developed acute massive hemoptysis with shock secondary to acute rupture of pulmonary artery. S/P Dr. Corrales and Dr. Jennings performed right heart cath, identified bleeding of a small branch in the left pulmonary artery- S/P 6 coils in the lower left lower pulmonary artery followed with Gelfoam closing the perforation. - Atrial fibrillation. Cardizem, Digoxin, BB. Rate controlled. - Resp. Failure, PTX, PNA, now extubated. Resp. shallow, mildly tachypneic. Zyvox, nebs Per attending. - Vfib/Vtach. S/P CPR, cardioversion- ROSC. PLAN - Full liquids, advance as tolerated - Relistor 12mg sq x 1 today - D/C NGT - Cont. Reglan - Cont. Miralax - Encourage mobility, OOB to chair. - Supportive care - Further recommendations to follow based on results of above - Pt seen and examined by Dr. Licona and myself and this note is written on his behalf (Sabine Moncada) Physician Comments Doing much better, ileus resolved. Tolerating liquid diet well. Advance diet as tolerated. Will sign off for now, please notify us if needed. (Yoly Licona MD) Sabine Moncada Jun 26, 2017 11:54 Yoly Licona MD Jun 26, 2017 13:15
[2017-06-26] MEDS ORDERED: METHYLNALTREXONE BROMIDE 12 MG/0.6 ML VIAL SQ ONE (13:00)
[2017-06-26] MEDS ORDERED: FUROSEMIDE 20 MG/2 ML VIAL IV PUSH ONE (17:15)
[2017-06-26] MEDS ORDERED: RESP: ALBUTEROL 2.5 MG/IPRATROPIUM 0.5 MG NEB (SCH) NEB STA (17:25)
--- NOTE | 2017-06-26 17:37 | RADRPT ---
EXAM DATE/TIME: 06/26/2017 17:21 [facility] COMPARISON: CHEST SINGLE AP, June 21, 2017, 5:07. INDICATIONS : Respiratory failure. MEDICAL HISTORY : Hypothyroidism. Congestive heart failure. Hypercholesterolemia. Syncope. Migraines. Coronary artery d isease. Afib. Aortic stenosis. Mitral valve disease. HTN. Hiatal hernia. GERD. Depression. MRSA SURGICAL HISTORY : Tonsillectomy. Pacemaker. Ventral hernia repair. Repair of left femoral artery. ENCOUNTER: Initial ACUITY: 1 day PAIN SCORE: 0/10 LOCATION: Bilateral chest FINDINGS: Pacemaker device is noted with control pack over the left chest. Diffuse hazy bilateral pleuroparench ymal opacity is likely extensive alveolar disease and layering effusion. Cardiac contours are largely obscured. CONCLUSION: Diffuse bilateral pleuroparenchymal opacities. Alvin Walls MD on June 26, 2017 at 17:34 Board Certified Radiologist. This report was verified electronically.
[2017-06-26 18:13] LABS: AUTOMATED NEUTROPHIL # 24.1 TH/MM3 (1.8-7.7); BASOPHIL % 0.2 % (0.0-2.0); HEMATOCRIT 36.4 % (35.0-46.0); LYMPH % 1.9 % (9.0-44.0); LYMPHOCYTE # 0.5 TH/MM3 (1.0-4.8); MEAN CELL VOLUME 89.8 FL (80.0-100.0); MEAN CORPUSCULAR HEMOGLOBIN 29.6 PG (27.0-34.0); NEUT % 95.9 % (16.0-70.0); PLATELET COUNT 95 TH/MM3 (150-450); RED BLOOD COUNT 4.05 MIL/MM3 (4.00-5.30); RED CELL DISTRIBUTION WIDTH 16.7 % (11.6-17.2); WHITE BLOOD COUNT 25.1 TH/MM3 (4.0-11.0)
--- NOTE | 2017-06-26 18:13 | HHI.CCPN ---
Subjective Remarks/Hospital Course I was emergently called to coreroom foundry laborer by Dr. Corrales. Ms. Mahoney who is 89 yo female with history of severe aortic stenosis was undergoing left and right heart catheter for TAVR evaluation. With right heart catheterization patient developed acute massive hemoptysis with shock secondary to acute rupture of pulmonary artery. Patient was intubated by Dr. Potter and ETT was advance to Right lung for selective right lung ventilation due to massive hemorrhage from Left lung. On my arrival to [employer]room foundry laborer, patient was rapidly dropping blood pressure. Dopamine was already started. I ordered Shantanu-Synephrine, at 300 mcg/ m in an attempt to increase MAP and also increase the pulmonary vasoconstriction. Levophed was also added to maintain blood pressure and rapidly titrated up. Emergency release blood initially 3 units was ordered stat along with 2 units of FFP, 1 unit of platelet. I also emergently contacted Dr. Vásquez was in the office. (Dr. Bedoya the on-call CT surgeon was operating). While on Levophed Shantanu-Synephrine and dopamine, patient developed coarse V. fib/V. tach, received brief CPR, and was DC cardioverted 1 with return of spontaneous circulation and sinus rhythm. I discussed with Dr. Corrales and anesthesiologist, I also contacted Dr. Josue from invasive radiology.Dr. Josue immediately arrived to the coreroom foundry laborer. Dr. Abdelrahman francis performed PARVIN which showed vigorous LV contraction but cavity was empty. Received Continuous massive fluid resuscitation with multiple crystalloid boluses, bicarbonate and calcium. Blood arrived and initially 3 units of PRBC, 2 units of 1 unit of platelets was given with calcium total 3 g given after blood transfusion. Because of persistent hypotension, additional 2 units of PRBC was given. While I resuscitated the patient, Dr. Corrales and Dr. Jennings performed right heart cath, identified bleeding of a small branch in the left pulmonary artery. They put put in 6 coils in the lower left lower pulmonary artery followed with Gelfoam closing the perforation. 06/04: Emergency chest 2 yesterday for right pneumothorax with hypotension and hypoxia. Remains intubated sedated and on Levophed. FiO2 remains at 100%, Sat improving to 94-95 %. UO adequate overnight. 2-D echo on my review normal LV and RV function, no PFO on bubble study 06/05: Patient is in atrial fibrillation currently on Cardene infusion for blood pressure control. Chest x-ray shows percutaneous emphysema and small apical pneumothorax. Remains on 80% FiO2. I discussed with interventional radiology. We will attempt CT-guided repositioning of the pigtail catheter and possibly upgrading to a larger tube. Urine output adequate 750 mL in 24 hours 06/06: Currently remains in A. fib with rate controlled, hypertensive on Cardizem drip. Oxygen saturation has improved FiO2 now to 40% with saturation 97%. Urine output excellent with Lasix 4.5 L in 24 hours. Chest x-ray today shows 2.5 cm bilateral apical pneumothorax, also left side has 1.2 cm lateral pneumothorax 06/07: Intubated, on low dose propofol for ventilator synchrony. FiO2 40% oxygen saturation 99%. Chest x-ray and labs pending urine output 2.7 L. 3 chest tubes with no air leak. If neuro exam not improving off sedation will check CT of the head. Currently on propofol will roving changer to Precedex to initiate weaning trials. On weaning doses of inhaled Flolan currently on 30, 000 ng 06/08: Remains intubated, mild sedation with Precedex. Overnight FiO2 increased to 65% for hypoxia. CXR left more than right consolidation of lower lobes. Sputum positive for MRSA on vancomycin. Bilateral lower extremity US studies yesterday showed DVT, initiated on IV heparin. Currently therapeutic on heparin. No evidence of pulmonary hemorrhage. Neuro exam is improving weekly follows commands all 4 extremities 06/09: remains intubated. failed CPAP yesterday. on Cleviprex and precedex. fio2 back to 40%. CXR improved aeration with the exception of known LLL. FC x 4. 06/10: failed SBT again for apnea. but much more awake. denies pain. ROS negative. off cleviprex. new air leak in chest tube. will get chest xray to re- eval. 06/11: Warm, well perfused. Alert, cooperative. Communicates with head nod, hand gestures. Comfortable respiratory pattern and acceptable excursions.Air leaks will seal when off positive pressure ventilation. FiO2 to 0.80 last night briefly; now 0.40. I'll come back later today and see if I can get her extubated. 06/12: Required re-intubation for hypoxemic respiratory failure last evening. She is now warm with well perfused fingers and toes. Low dose levophed not hampering peripheral perfusion. Mild prerenal azotemia. CXR with diffuse infiltrates as before. WBC 32,00, afebrile. Must assume colonized lungs at least. Antibiotic coverage is appropriate. Reculture sputum, urine. Progress to weaning trials daily.Hemodynamics appear excellent, rate a minor problem pretty well controlled. Continue Vanc. Stop pip/roxi, start cefepime. Narrow after cultures. Change CVLs, draw blood cultures. 06/13: Persistent leukocytosis, Tmax 100.2. O2 diffusion acceptable on positive pressure ventilation. Sputum culture pending. Remains warm and well perfused. Continue daily spontaneous breathing trials. 06/14: Bronch and BAL this morning by Dr. Muñoz. Gas exchange remains acceptable. Continue SBTs. 06/15: Looks great on SBTs/CPAP. She would benefit from a temporary tracheostomy. But she will eventually be off and extubated for good. C&S pending from BAL. Continue present abx regimen - discussed with Dr. Segura. 06/16: Awake alert following commands on vent. Currently on Precedex 0.5 g per KG per hour. Still has large amount of ETT secretions, but improving. R pigtail dislodged with turning, no pneumo on repeat CXR 06/17: Awake alert on low dose Precedex. Tolerated CPAP yesterday. Not extubated yesterday due copious bloody secretions. The chest x-ray shows some interval improvement and secretions slightly improved. Will proceed with SBT and possible extubation 06/18: Extubated yesterday tolerating very well. Coughing up sputum, cough seems adequate. Slight increase in WBC to 19.1. Received single dose of Decadron yesterday. Overall doing well communicating, no fever 06/19: WBC count slightly improved 17.9. Otherwise breathing comfortably. Single episode of delirium overnight. Will remove Payne today and also remove right chest tube 06/20: Up in chair, labs pending. CXR showing slight increase in L effusion. Will check bedside US. [facility] Re consult Note: 06/26/17: Critical care reconsulted for acute desaturation. After patient was sat on the side of the bed and when put back in the bed she acutely desaturated to mid 70s. Placed on nonrebreather and I was asked to evaluate the patient by Dr. Corrales. On my exam patient is in moderate distress, diffuse crackles on the chest. Stat chest x-ray shows acute change from chest x-ray 2 days ago. Bilateral diffuse interstitial and alveolar infiltrates with bilateral pleural effusions consistent with CHF. IV 20 mg Lasix given stat. Payne reinserted. Stat Bumex infusion started and transfer to ICU stat and placed on BiPAP 12 over 5. At this time does not need reintubation but this is a possibility Objective Vital Signs Date Time Temp Pulse Resp B/P (MAP) Pulse Ox O2 Delivery O2 Flow Rate FiO2 06/26/17 08:20 99 Nasal Cannula 2.00 06/26/17 07:30 97.8 74 16 154/72 (99) 06/22/17 10:59 21 Intake and Output 06/26/17 06/26/17 06/27/17 08:00 16:00 00:00 Intake Total 930 ml 100 ml Output Total 1450 ml 450 ml Balance -520 ml -350 ml Result Diagram: 06/24/17 0500 06/24/17 0500 Objective Remarks GENERAL: Lying in bed on 100 % NRB, Moderate distress SKIN: Skin/dry. ENT: Oral cavity is moist NECK: Trachea midline. Supple. Positive JVD CARDIOVASCULAR: Remains in atrial fibrillation, rate well controlled in 80 - 90. Systolic murmur over apex and LSB. RESPIRATORY: Air entry equally diminished with diffuse crackle, few scattered wheezes. Tachypneic with shallow breathing GASTROINTESTINAL: Abdomen Soft, no guarding. BS active. MUSCULOSKELETAL: New right IJ CVL. Limbs well perfused. 1+ Pedal edema NEUROLOGICAL: Follows commands. Awake, following commands x 4. A/P Assessment and Plan Assessment: 89yF with severe aortic stenosis, course complicated by Pulmonary Artery rupture during right heart catheterization, traumatic pneumothorax secondary to barotrauma, acute hypoxic respiratory failure, MRSA healthcare associated pneumonia, volume overload. Slowly improving extubated 06/17/17 NEURO: - Continue to hold home sertraline. Tylenol PRN - Initial CT of the head and C-spine negative for acute injury RESP: Acute hypoxemic respiratory failure Pulmonary edema/pleural effusions Diastolic HF exacerbation s/p Left lower pulmonary artery rupture with massive hemorrhage MRSA pneumonia Previous Large Left hemothorax s/p IR chest tube placement, residual L pneumo after evacuation Previous Bilateral apical pneumothorax Bilateral lower extremity DVT - Transferred to ICU 06/26/17 to initiate BiPAP 12 over 5 with 100% oxygen. Check ABG at 7 PM - Restart scheduled DuoNeb every 6 hours and when necessary, use BiPAP as tolerated - Chest x-ray 06/26 shows extensive bilateral interstitial and alveolar infiltrates with bilateral pleural effusions consistent with acute CHF exacerbation - s/p coil and Gelfoam closure of Left lower pulmonary artery (peripheral small branch) by Rhoda Crorales and Michaela (see resuscitation note on 06/03/17) - Extubated 06/16/17. (Required re-intubation 06/02 for hypoxemia) - Prev Chest x-ray LLL pneumonia vs lung infarct. Sputum with MRSA. on Zyvox, Levaquin. CXR 06/20/17 slight increase in L effusion - s/p chest tube x2 for right pneumothorax on 06/03. New apical chest tube placed 06/06/17 - IR, placed 24 F Left chest tube 06/05 with drainage of 2 L hemothorax, residual pneumothorax present, now resolved - CXR 06/07, resolution of right improving subcutaneous emphysema. Small residual left apical pneumo - s/p Bronchoscopy with removal of blood predominantly from L lung, s/p repeat bronch 06/06, 06/15 - INH Budesonide, Single dose of Decadron 6 mg IV x1 06/17 - Venous duplex -bilateral lower extremity DVT. IV heparin started 06/07/17 therapeutic. Coumadin started 06/19 - Removed R chest tube 06/19 CV/Heme: CHF/pulmonary edema Acute Diastolic HF exacerbation Hemorrhagic shock-resolved Bilateral lower extremity DVT Anemia requiring transfusion Severe Aortic Stenosis Atrial fibrillation with RVR Possible history of ITP - If given IV Lasix 20 mg 1 stat. Start Bumex infusion with 0.5 mg per hour. IV Albumin to maintain oncotic pressure. Hold IV Lasix, 20 mg IV q12. - INR 3.3 holding coumadin - Continue Cardizem PO. Continue metoprolol at 25 mg by mouth every 8 hours. Home dose of digoxin - On Multaq at home. Defer to Dr. Corrales - Previously Received 6 units of PRBC, 2 units of FFP and one of platelets 06/03. Multiple crystalloid boluses were given, PARVIN normal LV contractility, volume depletion - 2D Echo 06/04 RV LV function look normal, no PFO - Promacta for ITP - Continue losartan 50mg daily. Use hydralazine PRN GI: Ileus - Nothing by mouth except meds, KUB shows improving ileus - Continue IV Reglan, GI following : - Monitor renal function closely. Payne catheter. Urine output adequate - IV Lasix 20 md [id number] as patient is placed on Bumex gtt. ID: Proable sepsis MRSA pneumonia - Continue PO Levaquin and Zyvox. CBC pending, villanueva culture. Dr. Segura has followed - BAL culture MRSA. ENDO: Hypokalemia Hypomagnesemia - Replace electrolytes per protocol PROPH: - DCd SCDs due to DVT. IV Protonix. Coumadin on hold due to INR 3.3 LINES: Use PIV Overall impression: Critically ill with acute hypoxemic respiratory failure on BiPAP presumed from CHF exacerbation CCT 35 MIN Tanika Esquivel MD Jun 26, 2017 18:13
[2017-06-26 18:15] LABS: HEMO FLAGS AUTO DIFF
[2017-06-26 18:39] LABS: ALKALINE PHOSPHATASE 117 U/L (45-117); ALT (GPT) 28 U/L (10-53); ANION GAP 10 MEQ/L (5-15); AST (GOT) 23 U/L (15-37); BICARBONATE 29.3 MEQ/L (21.0-32.0); BLOOD UREA NITROGEN 28 MG/DL (7-18); CHLORIDE 100 MEQ/L (98-107); GLOMERULAR FILTRATION RATE 64 ML/MIN (>89); MAGNESIUM 1.9 MG/DL (1.5-2.5); SODIUM (NA) 139 MEQ/L (136-145); TOTAL BILIRUBIN ADULT 0.8 MG/DL (0.2-1.0)
[2017-06-26] MEDS: ALBUMIN 25% INJ 100 ML IV SCH (18:49)
[2017-06-26 18:52] LABS: SCAN/DIFF AUTO DIFF CONFIRMED
[2017-06-26 19:18] LABS: BLOOD GAS BASE EXCESS 4.8 mmol/L (-2-2); BLOOD GAS CARBOXYHEMOGLOBIN 0.7 % (0-4); BLOOD GAS HCO3 30 mmol/L (22-26); BLOOD GAS METHEMOGLOBIN 1.3 % (0-2); BLOOD GAS O2 HGB SATURATION 96 % (90-100); BLOOD GAS PCO2 55 mmHg (38-42); BLOOD GAS PO2 102 mmHg (61-120); BLOOD GAS TOTAL HGB 11.8 G/DL (12.0-16.0); CRITICAL VALUE YES; OXYGEN DEVICE BIPAP; TEMP CORR TO 98.6
[2017-06-26 19:19] LABS: DRAW SITE RT RADIAL; FIO2 85 %; NUMBER OF ARTERIAL PUNCTURES 1; STAT NO; VENT SETTINGS IPAP 12/EPAP 5
[2017-06-26] MEDS: INSULIN ASPART SUPPLEMENTAL SCALE SQ SCH (20:00)
[2017-06-26] MEDS: CEFEPIME INJ 2,000 MG in SODIUM CHLORIDE 0.9% INJ 100 ML IV SCH (20:00)
[2017-06-26] MEDS ORDERED: BUMETANIDE INJ 100 ML IV SCH (20:00)
[2017-06-26] MEDS: CHLORHEXIDINE 0.12% (ORAL KIT) 15 ML CUP MT SCH (20:00)
[2017-06-26] MEDS: POTASSIUM CHLOR 20 MEQ PREMIX 100 ML IV SCH ×2 (21:29→23:26)
[2017-06-26] MEDS: RESP: ALBUTEROL 2.5 MG/IPRATROPIUM 0.5 MG NEB (SCH) NEB (22:00)
[2017-06-27] VITALS (21 sets, daily range): BP systolic 113–177; BP diastolic 2–82; PULSE 88–122; RESP 18–32; TEMP 97.6–98.8; O2SAT 94–100
[2017-06-27 02:14] LABS: BACTERIA, URINE RARE /hpf; BLOOD, URINE SMALL (NEG); COMMENT (UR) CATH-CULTURE IND; CULTURE IF INDICATED CATH CULTURE IND; GLUCOSE,URINE NEG (NEG); HYALINE CAST, URINE 16 /lpf (RARE); KETONE, URINE NEG (NEG); MUCUS URINE FEW /lpf (OCC); NITRITE,URINE NEG (NEG); PH, URINE 5.5 (5.0-8.5); RENAL EPITHELIAL CELLS <1 /hpf; URINE COLOR YELLOW (YELLW/STRAW)
[2017-06-27] MEDS: RESP: ALBUTEROL 2.5 MG/IPRATROPIUM 0.5 MG NEB (SCH) NEB ×4 (03:45→21:09)
[2017-06-27] MEDS: CEFEPIME INJ 2,000 MG in SODIUM CHLORIDE 0.9% INJ 100 ML IV SCH ×2 (05:04→12:14)
[2017-06-27] MEDS: METOCLOPRAMIDE HCL 10 MG/2 ML VIAL IV PUSH SCH ×3 (05:04→22:23)
[2017-06-27] MEDS: ALBUMIN 25% INJ 100 ML IV SCH ×2 (05:04→17:52)
[2017-06-27] MEDS: METOPROLOL TARTRATE 25 MG TAB PO SCH ×3 (05:18→20:26)
[2017-06-27] MEDS: LEVOTHYROXINE SODIUM 50 MCG TAB PO SCH (05:18)
[2017-06-27] MEDS: DILTIAZEM HCL 60 MG TAB PO SCH ×3 (05:18→12:14)
[2017-06-27 05:32] LABS: AUTOMATED NEUTROPHIL # 22.3 TH/MM3 (1.8-7.7); BASOPHIL # 0.1 TH/MM3 (0-0.2); BASOPHIL % 0.3 % (0.0-2.0); LYMPH % 1.9 % (9.0-44.0); LYMPHOCYTE # 0.4 TH/MM3 (1.0-4.8); MEAN CELL VOLUME 88.4 FL (80.0-100.0); MEAN CORPUSCULAR HEMOGLOBIN 28.9 PG (27.0-34.0); MEAN CORPUSCULAR HGB CONC 32.7 % (32.0-36.0); MONO % 1.5 % (0.0-8.0); NEUT % 96.3 % (16.0-70.0); PLATELET COUNT 57 TH/MM3 (150-450); RED BLOOD COUNT 4.07 MIL/MM3 (4.00-5.30); RED CELL DISTRIBUTION WIDTH 16.9 % (11.6-17.2); WHITE BLOOD COUNT 23.2 TH/MM3 (4.0-11.0)
[2017-06-27 05:38] LABS: HEMO FLAGS AUTO DIFF
[2017-06-27 05:42] LABS: INTERNATIONAL NORMALIZED RATIO 4.6 RATIO; PROTHROMBIN TIME - PATIENT 54.2 SEC (9.8-11.6)
--- NOTE | 2017-06-27 05:46 | RADRPT ---
EXAM DATE/TIME: 06/27/2017 05:05 [facility] COMPARISON: CHEST SINGLE AP, June 26, 2017, 17:21. INDICATIONS : Shortness of breath. MEDICAL HISTORY : Hypothyroidism. Congestive heart failure. Hypercholesterolemia. Syncope. Migraines. Coronary artery d isease. Afib. Aortic stenosis. Mitral valve disease. HTN. Hiatal hernia. GERD. Depression. MRSA SURGICAL HISTORY : Tonsillectomy. Pacemaker. Ventral hernia repair. Repair of left femoral artery. ENCOUNTER: Subsequent ACUITY: 1 month PAIN SCORE: Non-responsive. LOCATION: chest FINDINGS: The cardiac silhouette is enlarged in transverse diameter. There are findings of congestive heart vero lure with interstitial and alveolar opacity bilaterally. Moderate size bilateral pleural effusions ar e identified. A bipolar pacemaker is in place via a left sided approach. CONCLUSION: 1. Cardiomegaly and findings of congestive heart failure. The findings are improved when compared wit h the prior exam. Shawn Perez MD on June 27, 2017 at 5:45 Board Certified Radiologist. This report was verified electronically.
[2017-06-27 06:24] LABS: BLOOD GAS CARBOXYHEMOGLOBIN 0.7 % (0-4); BLOOD GAS HCO3 28 mmol/L (22-26); BLOOD GAS METHEMOGLOBIN 1.5 % (0-2); BLOOD GAS O2 HGB SATURATION 96 % (90-100); BLOOD GAS OXYGEN CONTENT 16.9 Vol % (12.0-20.0); BLOOD GAS PCO2 45 mmHg (38-42); BLOOD GAS PO2 126 mmHg (61-120); BLOOD GAS TOTAL HGB 12.4 G/DL (12.0-16.0); CRITICAL VALUE NO; TEMP CORR TO 98.6
[2017-06-27 06:25] LABS: DRAW SITE RT RADIAL; FIO2 55 %; NUMBER OF ARTERIAL PUNCTURES 1; OXYGEN DEVICE BIPAP; STAT NO; ULNAR PULSE PRESENT; VENT SETTINGS 12IPAP/5EPAP
[2017-06-27] MEDS ORDERED: DIGOXIN 0.5 MG/2 ML VIAL IV PUSH ONE (06:45)
[2017-06-27] MEDS ORDERED: METOPROLOL TARTRATE 5 MG/5 ML VIAL IV PUSH ONE (06:45)
[2017-06-27] MEDS ORDERED: Vancomycin Consult Pharmacy 1 EA OTHER SCH (07:00)
[2017-06-27 07:04] LABS: BICARBONATE 27.1 MEQ/L (21.0-32.0); POTASSIUM 3.9 MEQ/L (3.5-5.1)
[2017-06-27 07:08] LABS: PLATELET ESTIMATE SMEAR LOW (NORMAL); PLATELET MORPHOLOGY NORMAL (NORMAL); SCAN/DIFF AUTO DIFF CONFIRMED
[2017-06-27] MEDS: CHLORHEXIDINE 0.12% (ORAL KIT) 15 ML CUP MT SCH ×3 (08:00→20:00)
[2017-06-27] MEDS: INSULIN ASPART SUPPLEMENTAL SCALE SQ SCH ×2 (08:00→20:00)
--- NOTE | 2017-06-27 08:05 | HHI.CCPN ---
Subjective Remarks/Hospital Course I was emergently called to radiographer cardiac catheterization by Dr. Corrales. Ms. Mahoney who is 89 yo female with history of severe aortic stenosis was undergoing left and right heart catheter for TAVR evaluation. With right heart catheterization patient developed acute massive hemoptysis with shock secondary to acute rupture of pulmonary artery. Patient was intubated by Dr. Potter and ETT was advance to Right lung for selective right lung ventilation due to massive hemorrhage from Left lung. On my arrival to radiographer cardiac catheterization, patient was rapidly dropping blood pressure. Dopamine was already started. I ordered Shantanu-Synephrine, at 300 mcg/ m in an attempt to increase MAP and also increase the pulmonary vasoconstriction. Levophed was also added to maintain blood pressure and rapidly titrated up. Emergency release blood initially 3 units was ordered stat along with 2 units of FFP, 1 unit of platelet. I also emergently contacted Dr. Vásquez was in the office. (Dr. Bedoya the on-call CT surgeon was operating). While on Levophed Shantanu-Synephrine and dopamine, patient developed coarse V. fib/V. tach, received brief CPR, and was DC cardioverted 1 with return of spontaneous circulation and sinus rhythm. I discussed with Dr. Corrales and anesthesiologist, I also contacted Dr. Josue from invasive radiology.Dr. Josue immediately arrived to the radiographer cardiac catheterization. Dr. Abdelrahman francis performed PARVIN which showed vigorous LV contraction but cavity was empty. Received Continuous massive fluid resuscitation with multiple crystalloid boluses, bicarbonate and calcium. Blood arrived and initially 3 units of PRBC, 2 units of 1 unit of platelets was given with calcium total 3 g given after blood transfusion. Because of persistent hypotension, additional 2 units of PRBC was given. While I resuscitated the patient, Dr. Corrales and Dr. Jennings performed right heart cath, identified bleeding of a small branch in the left pulmonary artery. They put put in 6 coils in the lower left lower pulmonary artery followed with Gelfoam closing the perforation. 06/04: Emergency chest 2 yesterday for right pneumothorax with hypotension and hypoxia. Remains intubated sedated and on Levophed. FiO2 remains at 100%, Sat improving to 94-95 %. UO adequate overnight. 2-D echo on my review normal LV and RV function, no PFO on bubble study 06/05: Patient is in atrial fibrillation currently on Cardene infusion for blood pressure control. Chest x-ray shows percutaneous emphysema and small apical pneumothorax. Remains on 80% FiO2. I discussed with interventional radiology. We will attempt CT-guided repositioning of the pigtail catheter and possibly upgrading to a larger tube. Urine output adequate 750 mL in 24 hours 06/06: Currently remains in A. fib with rate controlled, hypertensive on Cardizem drip. Oxygen saturation has improved FiO2 now to 40% with saturation 97%. Urine output excellent with Lasix 4.5 L in 24 hours. Chest x-ray today shows 2.5 cm bilateral apical pneumothorax, also left side has 1.2 cm lateral pneumothorax 06/07: Intubated, on low dose propofol for ventilator synchrony. FiO2 40% oxygen saturation 99%. Chest x-ray and labs pending urine output 2.7 L. 3 chest tubes with no air leak. If neuro exam not improving off sedation will check CT of the head. Currently on propofol will frame changer to Precedex to initiate weaning trials. On weaning doses of inhaled Flolan currently on 30, 000 ng 06/08: Remains intubated, mild sedation with Precedex. Overnight FiO2 increased to 65% for hypoxia. CXR left more than right consolidation of lower lobes. Sputum positive for MRSA on vancomycin. Bilateral lower extremity US studies yesterday showed DVT, initiated on IV heparin. Currently therapeutic on heparin. No evidence of pulmonary hemorrhage. Neuro exam is improving weekly follows commands all 4 extremities 06/09: remains intubated. failed CPAP yesterday. on Cleviprex and precedex. fio2 back to 40%. CXR improved aeration with the exception of known LLL. FC x 4. 06/10: failed SBT again for apnea. but much more awake. denies pain. ROS negative. off cleviprex. new air leak in chest tube. will get chest xray to re- eval. 06/11: Warm, well perfused. Alert, cooperative. Communicates with head nod, hand gestures. Comfortable respiratory pattern and acceptable excursions.Air leaks will seal when off positive pressure ventilation. FiO2 to 0.80 last night briefly; now 0.40. I'll come back later today and see if I can get her extubated. 06/12: Required re-intubation for hypoxemic respiratory failure last evening. She is now warm with well perfused fingers and toes. Low dose levophed not hampering peripheral perfusion. Mild prerenal azotemia. CXR with diffuse infiltrates as before. WBC 32,00, afebrile. Must assume colonized lungs at least. Antibiotic coverage is appropriate. Reculture sputum, urine. Progress to weaning trials daily.Hemodynamics appear excellent, rate a minor problem pretty well controlled. Continue Vanc. Stop pip/roxi, start cefepime. Narrow after cultures. Change CVLs, draw blood cultures. 06/13: Persistent leukocytosis, Tmax 100.2. O2 diffusion acceptable on positive pressure ventilation. Sputum culture pending. Remains warm and well perfused. Continue daily spontaneous breathing trials. 06/14: Bronch and BAL this morning by Dr. Muñoz. Gas exchange remains acceptable. Continue SBTs. 06/15: Looks great on SBTs/CPAP. She would benefit from a temporary tracheostomy. But she will eventually be off and extubated for good. C&S pending from BAL. Continue present abx regimen - discussed with Dr. Segura. 06/16: Awake alert following commands on vent. Currently on Precedex 0.5 g per KG per hour. Still has large amount of ETT secretions, but improving. R pigtail dislodged with turning, no pneumo on repeat CXR 06/17: Awake alert on low dose Precedex. Tolerated CPAP yesterday. Not extubated yesterday due copious bloody secretions. The chest x-ray shows some interval improvement and secretions slightly improved. Will proceed with SBT and possible extubation 06/18: Extubated yesterday tolerating very well. Coughing up sputum, cough seems adequate. Slight increase in WBC to 19.1. Received single dose of Decadron yesterday. Overall doing well communicating, no fever 06/19: WBC count slightly improved 17.9. Otherwise breathing comfortably. Single episode of delirium overnight. Will remove Payne today and also remove right chest tube 06/20: Up in chair, labs pending. CXR showing slight increase in L effusion. Will check bedside US. [facility] Re consult Note: 06/26/17: Critical care reconsulted for acute desaturation. After patient was sat on the side of the bed and when put back in the bed she acutely desaturated to mid 70s. Placed on nonrebreather and I was asked to evaluate the patient by Dr. Corrales. On my exam patient is in moderate distress, diffuse crackles on the chest. Stat chest x-ray shows acute change from chest x-ray 2 days ago. Bilateral diffuse interstitial and alveolar infiltrates with bilateral pleural effusions consistent with CHF. IV 20 mg Lasix given stat. Payne reinserted. Stat Bumex infusion started and transfer to ICU stat and placed on BiPAP 12 over 5. At this time does not need reintubation but this is a possibility 06/27: Remains on BiPAP overnight, slightly tachypneic but oxygen saturation 97 % on 55% FiO2. Chest x-ray shows improved bilateral infiltrate indicating improving CHF. After receiving additional Lasix and Bumex infusion urine output approximately 800 ml in 24 hours. Bumex infusion was increased to 1 mg per hour. UA shows evidence of UTI. Platelet count dropped to 57, most likely secondary to sepsis. DC Zyvox start vancomycin reconsult ID. Cefepime was added yesterday Objective Vital Signs Date Time Temp Pulse Resp B/P (MAP) Pulse Ox O2 Delivery O2 Flow Rate FiO2 06/27/17 03:45 98 55 06/27/17 03:41 88 06/27/17 03:36 Bi-Pap 06/27/17 03:00 98.3 32 162/73 (102) 06/26/17 11:30 2.00 Intake and Output 06/27/17 06/27/17 06/28/17 08:00 16:00 00:00 Intake Total 775 ml Output Total 725 ml Balance 50 ml Result Diagram: 06/27/17 0517 06/27/17516 Other Results Laboratory Tests Test 06/26/17 19:10 06/27/17 06:10 Blood Gas Puncture Site RT RADIAL RT RADIAL Blood Gas Patient Temperature 98.6 98.6 Blood Gas HCO3 30 mmol/L (22-26) 28 mmol/L (22-26) Blood Gas Base Excess 4.8 mmol/L (-2-2) 4.0 mmol/L (-2-2) Blood Gas Oxygen Saturation 96 % (90-100) 96 % (90-100) Arterial Blood pH 7.35 (7.380-7.420) 7.41 (7.380-7.420) Arterial Blood Partial Pressure CO2 55 mmHg (38-42) 45 mmHg (38-42) Arterial Blood Partial Pressure O2 102 mmHg (61-120) 126 mmHg (61-120) Arterial Blood Oxygen Content 16.0 Vol % (12.0-20.0) 16.9 Vol % (12.0-20.0) Arterial Blood Carboxyhemoglobin 0.7 % (0-4) 0.7 % (0-4) Arterial Blood Methemoglobin 1.3 % (0-2) 1.5 % (0-2) Blood Gas Hemoglobin 11.8 G/DL (12.0-16.0) 12.4 G/DL (12.0-16.0) Oxygen Delivery Device BIPAP BIPAP Blood Gas Ventilator Setting IPAP 12/EPAP 5 12IPAP/5EPAP Blood Gas Inspired Oxygen 85 % 55 % Objective Remarks GENERAL: Lying in bed on BiPAP, tachypneic, maintaining O2 sat SKIN: Skin/dry. ENT: Oral cavity is moist. BiPAP mask limits exam NECK: Trachea midline. Supple. Positive JVD CARDIOVASCULAR: Remains in atrial fibrillation with RVR. Systolic murmur over apex and LSB. RESPIRATORY: Air entry equally diminished with bilateral crackles, improving, few scattered wheezes. Tachypneic on BiPAP GASTROINTESTINAL: Abdomen Soft, no guarding. BS active. MUSCULOSKELETAL: Limbs well perfused. NEUROLOGICAL: Follows commands. Awake, following commands x 4. A/P Assessment and Plan Assessment: 89yF with severe aortic stenosis, course complicated by Pulmonary Artery rupture during right heart catheterization, pneumothorax secondary to barotrauma, MRSA healthcare associated pneumonia now with acute hypoxic respiratory failure, from CHF and also UTI with sepsis NEURO: - Continue to hold home sertraline. Tylenol PRN - Initial CT of the head and C-spine negative for acute injury RESP: Acute hypoxemic respiratory failure Pulmonary edema/pleural effusions s/p Left lower pulmonary artery rupture with massive hemorrhage MRSA pneumonia Previous Large Left hemothorax s/p IR chest tube placement, residual L pneumo after evacuation Previous Bilateral apical pneumothorax Bilateral lower extremity DVT - Transferred to ICU 06/26/17 initiated on BiPAP 12 over 5 with 100% oxygen, O2 weaned to 50% - Scheduled DuoNeb every 6 hours and when necessary. Continue INH Budesonide - Chest x-ray 06/26 shows extensive bilateral interstitial and alveolar infiltrates with bilateral pleural effusions consistent with acute CHF exacerbation - CXR 06/27 interval improvement in pulmonary edema - s/p coil and Gelfoam closure of Left lower pulmonary artery (peripheral small branch) by Rhoda Corrales and Michaela (see resuscitation note on 06/03/17) - Extubated 06/16/17. Required re-intubation 06/02 for hypoxemia - Prev Chest x-ray LLL pneumonia vs lung infarct. Sputum with MRSA. (Was on Zyvox, Levaquin-see ID section for new ABX) - s/p chest tube x2 for right pneumothorax on 06/03. New apical chest tube placed 06/06/17 - IR, placed 24 F Left chest tube 06/05 with drainage of 2 L hemothorax, residual pneumothorax present, now resolved - s/p Bronchoscopy on day of admission with removal of blood predominantly from L lung, s/p repeat bronch 06/06, 06/15 - Venous duplex -bilateral lower extremity DVT. Therapeutic on Coumadin held due to INR 3.3 06/26 - Removed R chest tube 06/19 CV/Heme: CHF/pulmonary edema Acute Diastolic HF exacerbation Bilateral lower extremity DVT Severe Aortic Stenosis Atrial fibrillation with RVR Thrombocytopenia secondary to sepsis and ITB History of ITP - Bumex infusion with 1 mg per hour. IV Albumin to maintain oncotic pressure. Hold IV Lasix, 20 mg IV q12. - INR 4.6 holding coumadin. Give 1 U FFP as the patient is thrombocytopenic at 57 - Place on IV steroid for ITP, IV Solu Medrol 40 mg every 12. Promacta for ITP - Continue Cardizem PO. Continue metoprolol at 25 mg by mouth every 8 hours. Home dose of digoxin - 2.5 mg of IV metoprolol, digoxin 0.25 IV 1. May need Cardizem infusion - Patient may need Valvuloplasty if refractory heart failure. D/W Dr. Corrales - Previously Received 6 units of PRBC, 2 units of FFP and one of platelets 06/03. PARVIN normal LV contractility, volume depletion - 2D Echo 06/04 RV LV function look normal, no PFO - Continue losartan 50mg daily. Use hydralazine PRN GI: Ileus - Nothing by mouth except meds, KUB shows improving ileus06/25, repeat today - Continue IV Reglan, GI following : - Monitor renal function closely. Payne catheter. Urine output adequate - IV Lasix 20 md [id number] as patient is placed on Bumex gtt. ID: Severe sepsis UTI MRSA pneumonia - Started on cefepime yesterday 06/26/17 for severe sepsis. Hold Celebrex due to thrombocytopenia, start vancomycin with pharmacy dosing - Micafungin added 08/27 as the patient had been on antibiotics for prolonged duration - Continue Levaquin, ID re consult with Dr. Segura. Follow-up on blood urine and sputum cultures - Prev BAL culture MRSA. ENDO: - Replace electrolytes per protocol PROPH: - No SCDs due to DVT. IV Protonix. Coumadin on hold due to INR 4.6 LINES: Use PIV Overall impression: Critically ill with acute hypoxemic respiratory failure on BiPAP presumed from CHF exacerbation. Severely septic with worsening thrombocytopenia. Critically ill but stable at this time. D/W Dr. Corrales CCT 35 MIN Tanika Esquivel MD Jun 27, 2017 08:05
[2017-06-27] MEDS: DOCUSATE SODIUM 100 MG/10 ML UDC PO SCH ×2 (08:34→20:28)
[2017-06-27] MEDS: guaiFENesin E.R. 600 MG TAB PO SCH ×2 (08:34→20:25)
[2017-06-27] MEDS: LOSARTAN 50 MG TAB PO SCH (08:34)
[2017-06-27] MEDS: POLYETHYLENE GLYCOL 17 GM PKG PO SCH (08:35)
[2017-06-27] MEDS: PANTOPRAZOLE SODIUM 40 MG VIAL IV PUSH SCH (08:35)
[2017-06-27] MEDS: POTASSIUM CHLORIDE 25 MEQ EFFERVESCENT TAB PO SCH ×2 (08:35→20:24)
[2017-06-27] MEDS: NYSTATIN SUSP 500,000 U/5 ML CUP SWISH-SWAL SCH ×4 (08:35→20:10)
[2017-06-27] MEDS: DIGOXIN 0.125 MG TAB PO SCH (08:36)
[2017-06-27] MEDS ORDERED: VANCOMYCIN INJ 1,000 MG in SODIUM CHLOR 0.9% 250 ML INJ 250 ML IV ONE (09:00)
[2017-06-27] MEDS: MICAFUNGIN INJ 100 MG in SODIUM CHLORIDE 0.9% INJ 100 ML IV SCH (09:22)
[2017-06-27] MEDS: RESP: BUDESONIDE 0.5 MG/2 ML NEB NEB SCH ×2 (09:43→21:09)
[2017-06-27] MEDS: ELTROMBOPAG 50 MG TAB PO SCH (10:00)
--- NOTE | 2017-06-27 10:06 | RADRPT ---
EXAM DATE/TIME: 06/27/2017 09:42 [facility] COMPARISON: ABDOMEN KUB ONLY, June 25, 2017, 9:01. INDICATIONS : Evaluate for Ileus. MEDICAL HISTORY : Hypothyroidism. Congestive heart failure. Hypercholesterolemia. SURGICAL HISTORY : Tonsillectomy. Pacemaker. Ventral hernia repair. Repair of left femoral ENCOUNTER: Subsequent ACUITY: 1 month PAIN SCORE: 0/10 LOCATION: Abdomen. FINDINGS: Bibasilar parenchymal changes remain with blunting on the right. There is no evidence of ileus or obstruction Moderate gas and stool are present in descending colon. Degenerative changes lumbar spine. CONCLUSION: Negative for ileus or obstruction. Rajesh Rincon MD FACR on June 27, 2017 at 10:03 Board Certified Radiologist. This report was verified electronically.
[2017-06-27] MEDS: methylPREDNISolone SOD SUCC 40 MG/1 ML VIAL IV PUSH SCH ×2 (10:13→20:27)
[2017-06-27] MEDS ORDERED: FUROSEMIDE 100 MG/10 ML VIAL IV PUSH ONE (10:15)
[2017-06-27] MEDS ORDERED: ROCURONIUM INJ 50 MG/5 ML VIAL ONE (12:54)
[2017-06-27] MEDS ORDERED: ETOMIDATE 40 MG/20 ML VIAL ONE (12:56)
[2017-06-27] MEDS ORDERED: MIDAZOLAM HCL 5 MG/ML VIAL (1 ML) ONE ×2 (13:01→13:06)
[2017-06-27] MEDS ORDERED: MIDAZOLAM 100 MG/NS 100 ML DRIP Premix IV PRN (13:15)
[2017-06-27] MEDS ORDERED: ALBUMIN 5% INJ 250 ML IV ONE (13:17)
--- NOTE | 2017-06-27 13:31 | PD.PROCEDR ---
Procedure Note Procedure After the risks and benefits were discussed the following procedure was performed: INTUBATION: The patient was put in optimal position for the procedure. Rapid sequence intubation was initiated by me using 20 milligrams of etomidate IV and 5 milligrams of Versed IV. Rocuronium 50 mg IV x2. DL with Mac 4 blade Grade 1 view. The patient was intubated with a 8.0 cuffed endotracheal tube. Tube placement was confirmed by visualization of the tube and balloon passing through the cords, capnometry and subsequent chest x-ray. Breath sounds were equal and well aerated bilaterally postintubation. No breath sounds over stomach. Patient tolerated procedure well. Tanika Esquivel MD Jun 27, 2017 13:31
--- NOTE | 2017-06-27 13:33 | PD.PROCEDR ---
Central Line Procedure REASON FOR PROCEDURE Central venous access PROCEDURE PERFORMED Central line placement: RIJ central line US guided CONSENT Emergency procedure ANESTHESIA Local injection of 1% Lidocaine DESCRIPTION OF THE PROCEDURE The patient was placed in supine, mild Trendelenburg position. The area was exposed and cleansed with ChloraPrep, times two. Large sterile drape was used to cover the patient, with the site exposed, under sterile conditions including cap, face mask, sterile gown, and sterile gloves. On single attempt, the introducer needle was inserted with negative pressure in syringe and venous flash was obtained. The guide wire was then advanced without any restriction and the needle was removed. The dilator was used without any complications. Using Seldinger technique the 20 cm 7F catheter was advanced over the guide wire to a depth of 17 centimeters. The guide wire was removed. All ports were aspirated with dark venous blood return and flushed easily with sterile saline. All ports were capped. Antibiotic disc was placed around central line at puncture site. The central line was secured to the skin with two interrupted 2.0 silk sutures. The area was bandaged with sterile see-through central line bandage. RADIOLOGICAL DATA Ultrasound guidance was used to locate RIJ COMPLICATIONS: No apparent complications ESTIMATED BLOOD LOSS: Less than 1 cc. Tanika Esquivel MD Jun 27, 2017 13:33
[2017-06-27] MEDS ORDERED: FUROSEMIDE 40 MG/4 ML VIAL IV PUSH SCH (14:00)
[2017-06-27 14:10] LABS: BLOOD GAS CARBOXYHEMOGLOBIN 0.5 % (0-4); BLOOD GAS HCO3 27 mmol/L (22-26); BLOOD GAS METHEMOGLOBIN 1.3 % (0-2); BLOOD GAS O2 HGB SATURATION 98 % (90-100); BLOOD GAS OXYGEN CONTENT 16.1 Vol % (12.0-20.0); BLOOD GAS PCO2 55 mmHg (38-42); BLOOD GAS PO2 370 mmHg (61-120); CRITICAL VALUE YES; FIO2 100 %; OXYGEN DEVICE VENTILATOR; TEMP CORR TO 98.6; VENT SETTINGS A/C16/450/PEEP10
[2017-06-27 14:11] LABS: DRAW SITE ALINE; STAT YES
--- NOTE | 2017-06-27 14:30 | RADRPT ---
EXAM DATE/TIME: 06/27/2017 13:35 [facility] COMPARISON: CHEST SINGLE AP, June 05, 2017, 3:59. CHEST SINGLE AP, June 03, 2017, 17:58. CHEST SINGLE AP, June 03, 2017, 14:42. CHEST SINGLE AP, June 03, 2017, 11:30. CHEST SINGLE AP, June 05 17, 19:25. CHEST SINGLE AP, June 27, 2017, 5:05. INDICATIONS : Post intubation and central line placement. MEDICAL HISTORY : Hypothyroidism. Congestive heart failure. Hypercholesterolemia. SURGICAL HISTORY : Tonsillectomy. Pacemaker. Ventral hernia repair. Repair of left femoral ENCOUNTER: Subsequent ACUITY: 1 month PAIN SCORE: Non-responsive. LOCATION: Bilateral chest FINDINGS: ET tube and central line in good position. Pacer on the left. Embolization coils on the right. Kojo nting of the right and left costophrenic sulci. Pulmonary vascularity is normal. CONCLUSION: Support apparatus in good position. Rajesh Rincon MD FACR on June 27, 2017 at 14:27 Board Certified Radiologist. This report was verified electronically.
[2017-06-27 14:43] LABS: PROTHROMBIN TIME - PATIENT 35.4 SEC (9.8-11.6)
--- NOTE | 2017-06-27 14:52 | PD.CARD.PN ---
Subjective Subjective Remarks Overnight events Aspiration Resp Failure Flash Pulmonary Edema afebrile Objective Medications Current Medications Medications (Trade) Dose Ordered Sig/Padmini Route Start Time Stop Time Status Last Admin (Peridex 0.12% Liq) 15 ml BID@08,20 MT 06/03/17 20:00 06/17/17 08:00 (Duoneb Neb) 1 ampule Q2HR NEB PRN NEB 06/03/17 19:00 06/15/17 19:56 (K-Lyte Cl Eff) 50 meq UNSCH PRN PO 06/03/17 19:15 (Mag-Ox) 800 mg UNSCH PRN PO 06/03/17 19:15 (K-Phos) 2,000 mg Q4H PRN PO 06/03/17 19:15 (K-Phos) 2,000 mg UNSCH PRN PO/TUBE 06/03/17 19:15 (D50w (Vial) Inj) 50 ml UNSCH PRN IV PUSH 06/04/17 12:15 (Glucagon Inj) 1 mg UNSCH PRN OTHER 06/04/17 12:15 (Lopressor Inj) 1.25 mg Q6H PRN IV PUSH 06/04/17 19:15 06/06/17 20:29 (Colace Liq) 100 mg Q12HR PO 06/05/17 14:00 06/27/17 08:34 (K-Lyte Cl Eff) 25 meq Q12HR PO 06/05/17 14:00 06/27/17 08:35 (Lanoxin) 0.125 mg DAILY PO 06/06/17 09:00 06/27/17 08:36 (Lopressor) 25 mg Q8HR PO 06/07/17 14:00 06/26/17 14:41 (Cozaar) 50 mg DAILY PO 06/07/17 09:00 Future Hold 06/27/17 08:34 (Apresoline Inj) 20 mg Q4H PRN IV PUSH 06/07/17 08:00 06/26/17 03:47 (Synthroid) 50 mcg DAILY@0600 PO 06/07/17 08:00 06/26/17 05:10 (Promacta) 25 mg DAILY@1000 PO 06/08/17 10:00 06/27/17 10:00 (Pill Splitter) 1 ea UNSCH PRN OTHER 10/21/17 22:15 (NovoLOG SUPPLEMENTAL SCALE) 1 BID@0800,2000 SQ 06/08/17 20:00 06/15/17 08:43 (Mycostatin Liq) 5 ml QID SWISH-SWAL 06/12/17 13:00 06/27/17 12:14 (Pulmicort Respule Neb) 0.5 mg Q12HR NEB NEB 06/16/17 11:15 06/27/17 09:43 (Tylenol 650 Mg/ 20 ml Liq) 650 mg Q6H PRN PO 06/18/17 06:30 06/26/17 05:11 (Lasix Inj) 20 mg Q12H IV PUSH 06/19/17 09:00 Future Hold 06/26/17 09:31 Pharmacy Profile Note 0 ml @ 0 mls/hr UNSCH OTHER 06/20/17 10:00 (Zofran Inj) 4 mg Q6H PRN IV PUSH 06/22/17 19:30 06/23/17 08:40 (Cardizem) 90 mg Q6HR PO 06/23/17 12:00 Future Hold 06/27/17 12:14 (Mucinex Er) 600 mg BID PO 06/23/17 10:15 06/27/17 08:34 (Levaquin) 250 mg Q24H PO 06/24/17 09:00 Future Hold 06/26/17 09:29 (Protonix Inj) 40 mg DAILY IV PUSH 06/24/17 09:00 07/17/17 09:00 06/27/17 08:35 (Reglan Inj) 5 mg Q8HR IV PUSH 06/23/17 17:45 06/27/17 05:04 (Vasotec Inj) 1.25 mg Q6H PRN IV PUSH 06/25/17 08:45 (Coumadin) 2 mg DAILY@1600 PO 06/25/17 16:00 Future Hold 06/25/17 16:00 (Miralax) 17 gm DAILY PO 06/25/17 09:45 06/27/17 08:35 (Melatonin) 5 mg HS PRN PO 06/25/17 16:15 (Duoneb Neb) 1 ampule Q6HR NEB NEB 06/26/17 22:00 06/27/17 09:43 Albumin Human 100 ml @ 60 mls/hr Q12H IV 06/26/17 18:00 06/27/17 05:04 Pharmacy Profile Note 0 ml @ 0 mls/hr UNSCH OTHER 06/27/17 07:00 Micafungin Sodium 100 mg/Sodium Chloride 100 ml @ 100 mls/hr Q24H IV 06/27/17 09:00 06/27/17 09:22 (SoluMEDROL INJ) 40 mg Q12HR IV PUSH 06/27/17 09:00 06/27/17 10:13 (Lasix Inj) 40 mg Q8H IV PUSH 06/27/17 14:00 Vancomycin HCl 1000 mg/Sodium Chloride 250 ml @ 250 mls/hr Q24H IV 06/28/17 09:00 Miscellaneous Information SPECIFIC LAB TO BE CLEMENT... ONCE ONCE .XX 06/30/17 08:45 06/30/17 08:46 (Peridex 0.12% Liq) 15 ml BID@08,20 MT 06/27/17 20:00 Midazolam HCl 100 ml @ 2 mls/hr TITRATE PRN IV 06/27/17 13:45 Cefepime HCl 2000 mg/Sodium Chloride 100 ml @ 200 mls/hr Q12H IV 06/28/17 00:00 Vital Signs / I&O Vital Signs Date Time Temp Pulse Resp B/P (MAP) Pulse Ox O2 Delivery O2 Flow Rate FiO2 06/27/17 13:00 100 100 06/27/17 11:00 121 06/27/17 11:00 98.5 99 20 157/2 (53) 95 06/27/17 11:00 95 Non-Rebreather 15.00 100 06/27/17 11:00 98.5 104 26 157/82 98 06/27/17 10:30 97.6 98 30 155/70 96 06/27/17 10:15 98.0 122 28 157/75 96 06/27/17 10:00 97 40 06/27/17 10:00 97.8 90 26 150/70 96 06/27/17 09:50 96 Partial Rebreather 15.00 06/27/17 09:40 97.6 110 22 155/70 94 06/27/17 08:00 95 Venturi Mask 6.00 50 06/27/17 08:00 97.6 116 20 149/67 (94) 95 06/27/17 08:00 116 06/27/17 03:45 98 55 06/27/17 03:41 88 06/27/17 03:36 98 Bi-Pap 65 06/27/17 03:00 98.3 94 32 162/73 (102) 98 06/27/17 01:00 97 65 06/27/17 00:00 98.0 91 32 177/80 (112) 98 06/26/17 23:20 82 06/26/17 23:11 98 Bi-Pap 75 06/26/17 20:40 82 06/26/17 20:35 94 75 06/26/17 20:15 97 Bi-Pap 85 06/26/17 20:00 97.5 82 30 147/62 (90) 97 06/26/17 18:35 99 85 06/26/17 18:00 76 06/26/17 17:00 80 06/26/17 16:00 76 06/26/17 15:45 98.0 82 18 171/75 (107) 92 06/26/17 15:45 95 Non-Rebreather 06/26/17 15:45 82 06/26/17 15:00 74 I/O 06/26/17 06/26/17 06/26/17 06/27/17 06/27/17 06/27/17 07:00 15:00 23:00 07:00 15:00 23:00 Intake Total 930 ml 200 ml 975 ml 428 ml Output Total 1450 ml 450 ml 725 ml Balance -520 ml -250 ml 250 ml 428 ml Intake Oral 600 ml 100 ml 0 ml IV Total 330 ml 100 ml 775 ml Albumin 200 ml FFP 318 ml Blood Product IV Normal Saline Flush 110 ml Output Urine Total 1450 ml 450 ml 725 ml Stool Total 0 ml Gastric Drainage Total 0 ml Bladder Scan Volume Amount 330 ml 0 ml 367 ml # Voids 1 # Bowel Movements 0 0 Physical Exam GENERAL: Intubated, pupils reactive, Alert, awake, oriented SKIN: Warm and dry. HEAD: Normocephalic. EYES: No scleral icterus. No injection or drainage. NECK: Supple, trachea midline. No JVD or lymphadenopathy. CARDIOVASCULAR: Irr Irr 2/6SEM no gallops, or rubs. RESPIRATORY: Vented. GASTROINTESTINAL: Abdomen soft, non-tender, nondistended. EXTREMITIES: No cyanosis, or edema. Laboratory Laboratory Tests Test 06/26/17 17:59 06/26/17 19:10 06/27/17 01:30 06/27/17 05:17 White Blood Count 25.1 TH/MM3 23.2 TH/MM3 Red Blood Count 4.05 MIL/MM3 4.07 MIL/MM3 Hemoglobin 12.0 GM/DL 11.8 GM/DL Hematocrit 36.4 % 36.0 % Mean Corpuscular Volume 89.8 FL 88.4 FL Mean Corpuscular Hemoglobin 29.6 PG 28.9 PG Mean Corpuscular Hemoglobin Concent 33.0 % 32.7 % Red Cell Distribution Width 16.7 % 16.9 % Platelet Count 95 TH/MM3 57 TH/MM3 Mean Platelet Volume 7.1 FL 7.1 FL Neutrophils (%) (Auto) 95.9 % 96.3 % Lymphocytes (%) (Auto) 1.9 % 1.9 % Monocytes (%) (Auto) 2.0 % 1.5 % Eosinophils (%) (Auto) 0.0 % 0.0 % Basophils (%) (Auto) 0.2 % 0.3 % Neutrophils # (Auto) 24.1 TH/MM3 22.3 TH/MM3 Lymphocytes # (Auto) 0.5 TH/MM3 0.4 TH/MM3 Monocytes # (Auto) 0.5 TH/MM3 0.4 TH/MM3 Eosinophils # (Auto) 0.0 TH/MM3 0.0 TH/MM3 Basophils # (Auto) 0.0 TH/MM3 0.1 TH/MM3 CBC Comment AUTO DIFF AUTO DIFF Differential Comment AUTO DIFF CONFIRMED AUTO DIFF CONFIRMED Blood Urea Nitrogen 28 MG/DL 34 MG/DL Creatinine 0.84 MG/DL 0.95 MG/DL Random Glucose 125 MG/DL 115 MG/DL Total Protein 6.2 GM/DL Albumin 2.5 GM/DL Calcium Level 8.8 MG/DL 8.8 MG/DL Magnesium Level 1.9 MG/DL 2.0 MG/DL Alkaline Phosphatase 117 U/L Aspartate Amino Transf (AST/SGOT) 23 U/L Alanine Aminotransferase (ALT/SGPT) 28 U/L Total Bilirubin 0.8 MG/DL Sodium Level 139 MEQ/L 141 MEQ/L Potassium Level 3.0 MEQ/L 3.9 MEQ/L Chloride Level 100 MEQ/L 102 MEQ/L Carbon Dioxide Level 29.3 MEQ/L 27.1 MEQ/L Anion Gap 10 MEQ/L 12 MEQ/L Estimat Glomerular Filtration Rate 64 ML/MIN 55 ML/MIN Phosphorus Level 2.8 MG/DL 2.9 MG/DL B-Type Natriuretic Peptide 398 PG/ML Blood Gas Puncture Site RT RADIAL Blood Gas Patient Temperature 98.6 Blood Gas HCO3 30 mmol/L Blood Gas Base Excess 4.8 mmol/L Blood Gas Oxygen Saturation 96 % Arterial Blood pH 7.35 Arterial Blood Partial Pressure CO2 55 mmHg Arterial Blood Partial Pressure O2 102 mmHg Arterial Blood Oxygen Content 16.0 Vol % Arterial Blood Carboxyhemoglobin 0.7 % Arterial Blood Methemoglobin 1.3 % Blood Gas Hemoglobin 11.8 G/DL Oxygen Delivery Device BIPAP Blood Gas Ventilator Setting IPAP 12/EPAP 5 Blood Gas Inspired Oxygen 85 % Urine Color YELLOW Urine Turbidity HAZY Urine pH 5.5 Urine Specific [place] 1.017 Urine Protein TRACE mg/dL Urine Glucose (UA) NEG mg/dL Urine Ketones NEG mg/dL Urine Occult Blood SMALL Urine Nitrite NEG Urine Bilirubin NEG Urine Urobilinogen LESS THAN 2.0 MG/DL Urine Leukocyte Esterase LARGE Urine RBC 15 /hpf Urine WBC 83 /hpf Urine WBC Clumps FEW Urine Renal Epithelial Cells <1 /hpf Urine Bacteria RARE /hpf Urine Hyaline Casts 16 /lpf Urine Mucus FEW /lpf Microscopic Urinalysis Comment CATH-CULTURE IND Platelet Estimate LOW Platelet Morphology Comment NORMAL Prothrombin Time 54.2 SEC Prothromb Time International Ratio 4.6 RATIO Test 06/27/17 06:10 06/27/17 13:59 06/27/17 14:26 Blood Gas Puncture Site RT RADIAL SRAVANTHI Blood Gas Patient Temperature 98.6 98.6 Blood Gas HCO3 28 mmol/L 27 mmol/L Blood Gas Base Excess 4.0 mmol/L 1.0 mmol/L Blood Gas Oxygen Saturation 96 % 98 % Arterial Blood pH 7.41 7.31 Arterial Blood Partial Pressure CO2 45 mmHg 55 mmHg Arterial Blood Partial Pressure O2 126 mmHg 370 mmHg Arterial Blood Oxygen Content 16.9 Vol % 16.1 Vol % Arterial Blood Carboxyhemoglobin 0.7 % 0.5 % Arterial Blood Methemoglobin 1.5 % 1.3 % Blood Gas Hemoglobin 12.4 G/DL 11.0 G/DL Oxygen Delivery Device BIPAP VENTILATOR Blood Gas Ventilator Setting 12IPAP/5EPAP A/C16/450/PEEP10 Blood Gas Inspired Oxygen 55 % 100 % Prothrombin Time 35.4 SEC Prothromb Time International Ratio 3.0 RATIO Imaging Last 24 hours Impressions Chest X-Ray 06/27/17 0600 Signed Impressions: Service Date/Time: Tuesday, June 27, 2017 05:05 - CONCLUSION: 1. Cardiomegaly and findings of congestive heart failure. The findings are improved when compared with the prior exam. Shawn Perez MD Chest X-Ray 06/27/17 0000 Signed Impressions: Service Date/Time: Tuesday, June 27, 2017 13:35 - CONCLUSION: Support apparatus in good position. Rajesh Rincon MD FACR Abdomen X-Ray 06/27/17 0000 Signed Impressions: Service Date/Time: Tuesday, June 27, 2017 09:42 - CONCLUSION: Negative for ileus or obstruction. Rajesh Rincon MD FACR Assessment and Plan Problem List: (1) Respiratory failure ICD Codes: J96.90 - Respiratory failure, unspecified, unspecified whether with hypoxia or hypercapnia Plan: Due to aspiration, acute of chronic diastolic heart failure and pulmonary edema. responding to IV diureses urine output approximately 800 ml in 24 hours. Chest X-ray much improved. BiPAP overnight however needed to be intubated this afternoon for worsening respiratory failure. UA shows evidence of UTI. Started on vancomycin. Awaiting ID recs. Plan: 1. Cont IV diuresis 2. Cont rate control for Afib 3. ID consult 4. If problems with aspiration continue she might need a Peg Tube Case discuss with Dr. Esquivel (2) Shock, postoperative ICD Codes: T81.10XA - Postprocedural shock unspecified, initial encounter Status: Resolved (3) Pulmonary arterial thrombosis ICD Codes: I26.99 - Other pulmonary embolism without acute cor pulmonale Status: Acute (4) CAD (coronary artery disease) ICD Codes: I25.10 - Atherosclerotic heart disease of [place] coronary artery without angina pectoris (5) Aortic stenosis ICD Codes: I35.0 - Nonrheumatic aortic (valve) stenosis (6) DVT (deep venous thrombosis) ICD Codes: I82.409 - Acute embolism and thrombosis of unspecified deep veins of unspecified lower extremity Problem Qualifiers (1) Respiratory failure: Qualified Codes: J96.01 - Acute respiratory failure with hypoxia Brad Page MD Jun 27, 2017 14:52
[2017-06-27 15:02] LABS: BICARBONATE 27.9 MEQ/L (21.0-32.0); POTASSIUM 4.1 MEQ/L (3.5-5.1)
--- NOTE | 2017-06-27 15:45 | HHI.GIFU ---
Subjective Remarks Pt was intubated overnight. Seems still distended. No BM. (Fina Tavera) Objective Vitals I&O Vital Signs Date Time Temp Pulse Resp B/P (MAP) Pulse Ox O2 Delivery O2 Flow Rate FiO2 06/27/17 14:20 99 50 06/27/17 13:00 100 100 06/27/17 11:00 121 06/27/17 11:00 98.5 99 20 157/2 (53) 95 06/27/17 11:00 95 Non-Rebreather 15.00 100 06/27/17 11:00 98.5 104 26 157/82 98 06/27/17 10:30 97.6 98 30 155/70 96 06/27/17 10:15 98.0 122 28 157/75 96 06/27/17 10:00 97 40 06/27/17 10:00 97.8 90 26 150/70 96 06/27/17 09:50 96 Partial Rebreather 15.00 06/27/17 09:40 97.6 110 22 155/70 94 06/27/17 08:00 95 Venturi Mask 6.00 50 06/27/17 08:00 97.6 116 20 149/67 (94) 95 06/27/17 08:00 116 06/27/17 03:45 98 55 06/27/17 03:41 88 06/27/17 03:36 98 Bi-Pap 65 06/27/17 03:00 98.3 94 32 162/73 (102) 98 06/27/17 01:00 97 65 06/27/17 00:00 98.0 91 32 177/80 (112) 98 06/26/17 23:20 82 06/26/17 23:11 98 Bi-Pap 75 06/26/17 20:40 82 06/26/17 20:35 94 75 06/26/17 20:15 97 Bi-Pap 85 06/26/17 20:00 97.5 82 30 147/62 (90) 97 06/26/17 18:35 99 85 06/26/17 18:00 76 06/26/17 17:00 80 06/26/17 16:00 76 06/26/17 15:45 98.0 82 18 171/75 (107) 92 06/26/17 15:45 95 Non-Rebreather 06/26/17 15:45 82 I/O 06/26/17 06/26/17 06/26/17 06/27/17 06/27/17 06/27/17 07:00 15:00 23:00 07:00 15:00 23:00 Intake Total 930 ml 200 ml 975 ml 428 ml Output Total 1450 ml 450 ml 725 ml Balance -520 ml -250 ml 250 ml 428 ml Intake Oral 600 ml 100 ml 0 ml IV Total 330 ml 100 ml 775 ml Albumin 200 ml FFP 318 ml Blood Product IV Normal Saline Flush 110 ml Output Urine Total 1450 ml 450 ml 725 ml Stool Total 0 ml Gastric Drainage Total 0 ml Bladder Scan Volume Amount 330 ml 0 ml 367 ml # Voids 1 # Bowel Movements 0 0 Laboratory Laboratory Tests Test 06/26/17 17:59 06/26/17 19:10 06/27/17 01:30 06/27/17 05:17 White Blood Count 25.1 23.2 Red Blood Count 4.05 4.07 Hemoglobin 12.0 11.8 Hematocrit 36.4 36.0 Mean Corpuscular Volume 89.8 88.4 Mean Corpuscular Hemoglobin 29.6 28.9 Mean Corpuscular Hemoglobin Concent 33.0 32.7 Red Cell Distribution Width 16.7 16.9 Platelet Count 95 57 Mean Platelet Volume 7.1 7.1 Neutrophils (%) (Auto) 95.9 96.3 Lymphocytes (%) (Auto) 1.9 1.9 Monocytes (%) (Auto) 2.0 1.5 Eosinophils (%) (Auto) 0.0 0.0 Basophils (%) (Auto) 0.2 0.3 Neutrophils # (Auto) 24.1 22.3 Lymphocytes # (Auto) 0.5 0.4 Monocytes # (Auto) 0.5 0.4 Eosinophils # (Auto) 0.0 0.0 Basophils # (Auto) 0.0 0.1 CBC Comment AUTO DIFF AUTO DIFF Differential Comment AUTO DIFF CONFIRMED AUTO DIFF CONFIRMED Blood Urea Nitrogen 28 34 Creatinine 0.84 0.95 Random Glucose 125 115 Total Protein 6.2 Albumin 2.5 Calcium Level 8.8 8.8 Magnesium Level 1.9 2.0 Alkaline Phosphatase 117 Aspartate Amino Transf (AST/SGOT) 23 Alanine Aminotransferase (ALT/SGPT) 28 Total Bilirubin 0.8 Sodium Level 139 141 Potassium Level 3.0 3.9 Chloride Level 100 102 Carbon Dioxide Level 29.3 27.1 Anion Gap 10 12 Estimat Glomerular Filtration Rate 64 55 Phosphorus Level 2.8 2.9 B-Type Natriuretic Peptide 398 Blood Gas Puncture Site RT RADIAL Blood Gas Patient Temperature 98.6 Blood Gas HCO3 30 Blood Gas Base Excess 4.8 Blood Gas Oxygen Saturation 96 Arterial Blood pH 7.35 Arterial Blood Partial Pressure CO2 55 Arterial Blood Partial Pressure O2 102 Arterial Blood Oxygen Content 16.0 Arterial Blood Carboxyhemoglobin 0.7 Arterial Blood Methemoglobin 1.3 Blood Gas Hemoglobin 11.8 Oxygen Delivery Device BIPAP Blood Gas Ventilator Setting IPAP 12/EPAP 5 Blood Gas Inspired Oxygen 85 Urine Color YELLOW Urine Turbidity HAZY Urine pH 5.5 Urine Specific [place] 1.017 Urine Protein TRACE Urine Glucose (UA) NEG Urine Ketones NEG Urine Occult Blood SMALL Urine Nitrite NEG Urine Bilirubin NEG Urine Urobilinogen LESS THAN 2.0 Urine Leukocyte Esterase LARGE Urine RBC 15 Urine WBC 83 Urine WBC Clumps FEW Urine Renal Epithelial Cells <1 Urine Bacteria RARE Urine Hyaline Casts 16 Urine Mucus FEW Microscopic Urinalysis Comment CATH-CULTURE IND Platelet Estimate LOW Platelet Morphology Comment NORMAL Prothrombin Time 54.2 Prothromb Time International Ratio 4.6 Test 06/27/17 06:10 06/27/17 13:59 06/27/17 14:26 Blood Gas Puncture Site RT RADIAL SRAVANTHI Blood Gas Patient Temperature 98.6 98.6 Blood Gas HCO3 28 27 Blood Gas Base Excess 4.0 1.0 Blood Gas Oxygen Saturation 96 98 Arterial Blood pH 7.41 7.31 Arterial Blood Partial Pressure CO2 45 55 Arterial Blood Partial Pressure O2 126 370 Arterial Blood Oxygen Content 16.9 16.1 Arterial Blood Carboxyhemoglobin 0.7 0.5 Arterial Blood Methemoglobin 1.5 1.3 Blood Gas Hemoglobin 12.4 11.0 Oxygen Delivery Device BIPAP VENTILATOR Blood Gas Ventilator Setting 12IPAP/5EPAP A/C16/450/PEEP10 Blood Gas Inspired Oxygen 55 100 Prothrombin Time 35.4 Prothromb Time International Ratio 3.0 Blood Urea Nitrogen 43 Creatinine 1.23 Random Glucose 143 Calcium Level 8.3 Sodium Level 143 Potassium Level 4.1 Chloride Level 106 Carbon Dioxide Level 27.9 Anion Gap 9 Estimat Glomerular Filtration Rate 41 Date/Time Source Procedure Growth Status 06/26/17 21:38 Blood Peripheral Aerobic Blood Culture - Preliminary NO GROWTH IN 1 DAY Resulted 06/26/17 21:38 Blood Peripheral Anaerobic Blood Culture - Preliminary NO GROWTH IN 1 DAY Resulted 06/09/17 09:45 Stool Stool Stool Occult Blood (KIM) - Final HEMOCCULT POSITIVE Complete 06/14/17 12:00 Bronchial Washings Left Lower Lobe Gram Stain - Final Complete 06/14/17 12:00 Bronchial Culture - Final S. Aureus Mrsa Complete 06/27/17 01:30 Urine Catheterized Urine Urine Culture Pending Received 06/12/17 13:20 Catheter Tip Central Venous Line Wound Culture - Final NO GROWTH IN 48 HOURS. Complete Imaging Last Impressions Chest X-Ray 06/27/17 0600 Signed Impressions: Service Date/Time: Tuesday, June 27, 2017 05:05 - CONCLUSION: 1. Cardiomegaly and findings of congestive heart failure. The findings are improved when compared with the prior exam. Shawn Perez MD Abdomen X-Ray 06/27/17 0000 Signed Impressions: Service Date/Time: Tuesday, June 27, 2017 09:42 - CONCLUSION: Negative for ileus or obstruction. Rajesh Rincon MD FACR Renal Ultrasound 06/26/17 0000 Signed Impressions: Service Date/Time: June 08:51 - CONCLUSION: Normal examination. Alvin Walls MD Tunnelled Chest Tube Removal 06/13/17 0000 Signed Impressions: Service Date/Time: Tuesday, June 13, 2017 00:00 - CONCLUSION: Uncomplicated chest tube removal. Joselo Jennings MD Upper Extremity Ultrasound 06/07/17 0000 Signed Impressions: Service Date/Time: Wednesday, June 07, 2017 18:21 - CONCLUSION: 1. Limited exam but no deep venous thrombosis is identified bilaterally. Jamie Corrales MD Lower Extremity Ultrasound 06/07/17 0000 Signed Impressions: Service Date/Time: Wednesday, June 07, 2017 17:57 - CONCLUSION: 1. Positive bilateral lower extremity deep venous thrombosis, nonocclusive as above. Jamie Corrales MD Head CT 06/07/17 0000 Signed Impressions: Service Date/Time: Wednesday, June 07, 2017 17:01 - CONCLUSION: 1. No acute intracranial abnormality. 2. Extensive subcutaneous air tracking up from the chest. Luc Cain Jr., MD Cervical Spine CT 06/07/17 0000 Signed Impressions: Service Date/Time: Wednesday, June 07, 2017 17:01 - CONCLUSION: 1. Extensive subcutaneous emphysema. 2. Tiny left apical pneumothorax. 3. Diffuse mild degenerative changes without central canal stenosis. Multilevel neural foraminal narrowing. 4. Prevertebral soft tissues obscured by an endotracheal tube and nasogastric tube. Luc Cain Jr., MD Chest Tube Insertion 06/05/17 0000 Signed Impressions: Service Date/Time: May 09:15 - CONCLUSION: Uncomplicated chest tube placement as above. Maxwell Aldana MD Chest CT 06/05/17 0000 Signed Impressions: Service Date/Time: May 08:47 - CONCLUSION: 1. Moderate left-sided hemothorax with associated left lower lobe consolidation which may reflect a combination of compressive atelectasis, aspiration, and potentially lung infarction given recent pulmonary artery embolization. 2. Trace right apical pneumothorax with large bore chest tube in the major fissure and smallbore chest tube in the soft tissues. Significant subcutaneous emphysema extending to the cervicothoracic junction bilaterally. 3. Airspace consolidation in the right lower lobe posteriorly may reflect aspiration. Maxwell Aldana MD Embolization 06/03/17 0000 Signed Impressions: Service Date/Time: Saturday, June 03, 2017 00:00 - CONCLUSION: Left pulmonary artery rupture with successful coil embolization of a lower lobe branch vessel as above. Joselo Jennings MD Physical Exam HEENT: Normocephalic; atraumatic; no jaundice. intubated on vent CHEST: CTA CARDIAC: Irregular, systolic murmur. ABDOMEN: Soft, distended; no hepatosplenomegaly; bowel sounds are present in all four quadrants. EXTREMITIES: Generalized edema. 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 KUB (06/23/17)---> Nonspecific bowel gas pattern with some air filled loops of mildly dilated small bowel and nondilated colon. This may be an ileus. S/P SSE x 2 on 06/23 , no response per nurse. Has not had bowel movement since. Last BM 06/21. Clinically, no n/v. KUB ()---> Mild air distention of small and large bowel in a nonobstructive pattern. The mildly dilated small bowel segments documented previously have mostly resolved. 2. Severe atherosclerotic disease. Reglan. Miralax daily. - Anemia. S/P 6 units PRBC, 4 units FFP, 1 platelet pack. Stable. - Severe aortic stenosis, S/P left and right heart catheter for TAVR evaluation. Developed right heart catheterization patient developed acute massive hemoptysis with shock secondary to acute rupture of pulmonary artery. S/P Dr. Corrales and Dr. Jennings performed right heart cath, identified bleeding of a small branch in the left pulmonary artery- S/P 6 coils in the lower left lower pulmonary artery followed with Gelfoam closing the perforation. - Atrial fibrillation. Cardizem, Digoxin, BB. Rate controlled. - Resp. Failure, PTX, PNA, poss aspiration - Vfib/Vtach. S/P CPR, cardioversion- ROSC. 06/27/17 KUB neg for ileus or obstruction but seems distended, tympanitic today. OGT to [facility]. she was intubated this morning, probable aspiration. d/w primary re placement PEG tube. POA is pts son Faisal Mahoney [phone]. He was hesitant to pursue PEG tube placement, citing over all decline and repeated intubations, prolonged stay in hospital. He requested time to speak with family and was interested in speaking with palliative care. PLAN - tentatively PEG tube placement early next week, if family decides to pursue - OGT to [facility] - palliative care consult - Cont. Reglan - Supportive care - Further recommendations to follow based on results of above - Pt seen and examined by Dr. Licona and myself and this note is written on his behalf (Fina Tavera) Physician Comments Seen and examined, plan as above. Will follow up with you. (Yoly Licona MD) Fina Tavera Jun 27, 2017 15:45 Yoly Licona MD Jun 27, 2017 18:54
[2017-06-27] MEDS ORDERED: ROCURONIUM INJ 100 MG/10 ML VIAL IV ONE (16:15)
[2017-06-27] MEDS ORDERED: ETOMIDATE 40 MG/20 ML VIAL IV PUSH ONE (16:15)
[2017-06-27] MEDS ORDERED: MIDAZOLAM HCL 2 MG/2 ML VIAL IV PUSH ONE (16:15)
[2017-06-27] MEDS ORDERED: ROCURONIUM INJ 50 MG/5 ML VIAL IV ONE (16:30)
[2017-06-27] MEDS ORDERED: DILTIAZEM INJ 125 MG in SODIUM CHLORIDE 0.9% INJ 100 ML IV PRN (17:00)
--- NOTE | 2017-06-27 18:08 | PD.CONS ---
Consult Service Palliative Care . Consult Requested By GIOVANNA Ford . Primary Care Physician Unknown . Reason for Consultation a. To assist with evaluation and management of symptoms including: b. To assist medical decision maker(s) with: better understanding of current medical conditions; weighing benefits/burdens of medical treatment options; making medical treatment decisions. . HPI History of Present Illness Ms. Mahoney is an 89-year-old female with a history of severe aortic stenosis who was undergoing a cardiac catheterization for TAVR evaluation on 06/03/2017 when she developed an acute massive hemoptysis with shock secondary to acute rupture of the pulmonary artery. Patient was emergently intubated via by Dr. Potter; the ETT was advanced into the right lung selectively due to the massive hemorrhage from the left lung. Patient was started on dopamine, Shantanu-Synephrine and Levophed. While on the affected, Shantanu-Synephrine and epinephrine and dopamine, the patient developed V. fib/V. tach. She subsequently received CPR for a brief period of time and was cardioverted 1 with return of spontaneous circulation and sinus rhythm. A PARVIN was performed and showed vigorous LV contractions but the cavity was empty. The patient received continuous massive fluid resuscitation with multiple crystalloid boluses, bicarbonate and calcium. Patient received 6 units of emergency release blood, 2 units of FFP and [address] Corrales and Dr. Jennings performed right heart cath, identified bleeding of a small branch in the left pulmonary artery. They put put in 6 coils in the lower left lower pulmonary artery followed with Gelfoam closing the perforation. 06/04/17: Patient required emergent chest tube 2 for right pneumothorax with hypotension and hypoxia. She remains intubated, requiring pressor support. Patient in atrial fibrillation on Cardene drip for blood pressure control. A chest x-ray shows percutaneous emphysema and small apical pneumothorax requiring upgrade to a larger chest tube. Patient failed extubation on 06/11/2016 and required re-into patient for hypoxemic respiratory failure. Patient having intermittent fevers, on IV antibiotics. WBC 22.0 Sputum culture positive for MRSA; MRSA pneumonia. Infectious disease following. 06/17/2017 follow-up chest x-ray showing interval improvement with decreased secretions patient successfully extubated. Critical care was reconsulted on 06/26/2017 for acute desaturations into the 70s. Patient was in moderate distress with diffuse crackles; she was placed on a nonrebreather. A stat chest x-ray was unchanged from 2 days prior showing bilateral diffuse interstitial and alveolar infiltrates with bilateral pleural effusions consistent with CHF. Patient received 20 mg of Furosemide IV stat. She was started on a Bumex drip, transferred to the ICU and placed on BiPAP. Patient remained on BiPAP overnight. Chest x-ray this morning showed improved bilateral infiltrates. Afebrile. UA showing evidence of UTI; culture pending. Patient currently on vancomycin and cefepime. Follow-up cultures pending. Infectious disease was reconsulted. Palliative Care was consulted to assist with symptom management and to discuss with the family the benefits and burdens of her current illnesses and the options regarding future care. Past Family Social History Coded Allergies: Sulfa (Sulfonamide Antibiotics) (Unverified Allergy, Severe, 06/03/17) promethazine (Unverified Allergy, Severe, 06/03/17) adhesive (Unverified Allergy, Unknown, 06/03/17) Past Medical History Umbilical hernia Colon cancer Aortic stenosis CHF . Past Surgical History Colectomy Umbilical hernia repair Current Medications Medications (Trade) Dose Ordered Sig/Padmini Route Start Time Stop Time Status Last Admin (Peridex 0.12% Liq) 15 ml BID@08,20 MT 06/03/17 20:00 06/17/17 08:00 (Duoneb Neb) 1 ampule Q2HR NEB PRN NEB 06/03/17 19:00 06/15/17 19:56 (K-Lyte Cl Eff) 50 meq UNSCH PRN PO 06/03/17 19:15 (Mag-Ox) 800 mg UNSCH PRN PO 06/03/17 19:15 (K-Phos) 2,000 mg Q4H PRN PO 06/03/17 19:15 (K-Phos) 2,000 mg UNSCH PRN PO/TUBE 06/03/17 19:15 (D50w (Vial) Inj) 50 ml UNSCH PRN IV PUSH 06/04/17 12:15 (Glucagon Inj) 1 mg UNSCH PRN OTHER 06/04/17 12:15 (Lopressor Inj) 1.25 mg Q6H PRN IV PUSH 06/04/17 19:15 06/06/17 20:29 (Colace Liq) 100 mg Q12HR PO 06/05/17 14:00 06/27/17 08:34 (K-Lyte Cl Eff) 25 meq Q12HR PO 06/05/17 14:00 06/27/17 08:35 (Lanoxin) 0.125 mg DAILY PO 06/06/17 09:00 06/27/17 08:36 (Lopressor) 25 mg Q8HR PO 06/07/17 14:00 06/26/17 14:41 (Cozaar) 50 mg DAILY PO 06/07/17 09:00 Future Hold 06/27/17 08:34 (Apresoline Inj) 20 mg Q4H PRN IV PUSH 06/07/17 08:00 06/26/17 03:47 (Synthroid) 50 mcg DAILY@0600 PO 06/07/17 08:00 06/26/17 05:10 (Promacta) 25 mg DAILY@1000 PO 06/08/17 10:00 06/27/17 10:00 (Pill Splitter) 1 ea UNSCH PRN OTHER 06/07/17 22:15 (NovoLOG SUPPLEMENTAL SCALE) 1 BID@0800,2000 SQ 06/08/17 20:00 06/15/17 08:43 (Mycostatin Liq) 5 ml QID SWISH-SWAL 06/12/17 13:00 06/27/17 12:14 (Pulmicort Respule Neb) 0.5 mg Q12HR NEB NEB 06/16/17 11:15 06/27/17 09:43 (Tylenol 650 Mg/ 20 ml Liq) 650 mg Q6H PRN PO 06/18/17 06:30 06/26/17 05:11 Pharmacy Profile Note 0 ml @ 0 mls/hr UNSCH OTHER 06/20/17 10:00 (Zofran Inj) 4 mg Q6H PRN IV PUSH 06/22/17 19:30 06/23/17 08:40 (Cardizem) 90 mg Q6HR PO 06/23/17 12:00 Future Hold 06/27/17 12:14 (Mucinex Er) 600 mg BID PO 06/23/17 10:15 06/27/17 08:34 (Levaquin) 250 mg Q24H PO 06/24/17 09:00 Future Hold 06/26/17 09:29 (Protonix Inj) 40 mg DAILY IV PUSH 06/24/17 09:00 07/17/17 09:00 06/27/17 08:35 (Reglan Inj) 5 mg Q8HR IV PUSH 06/23/17 17:45 06/27/17 16:24 (Vasotec Inj) 1.25 mg Q6H PRN IV PUSH 06/25/17 08:45 (Coumadin) 2 mg DAILY@1600 PO 06/25/17 16:00 Future Hold 06/25/17 16:00 (Miralax) 17 gm DAILY PO 06/25/17 09:45 06/27/17 08:35 (Melatonin) 5 mg HS PRN PO 06/25/17 16:15 (Duoneb Neb) 1 ampule Q6HR NEB NEB 06/26/17 22:00 06/27/17 17:02 Albumin Human 100 ml @ 60 mls/hr Q12H IV 06/26/17 18:00 06/27/17 05:04 Pharmacy Profile Note 0 ml @ 0 mls/hr UNSCH OTHER 06/27/17 07:00 Micafungin Sodium 100 mg/Sodium Chloride 100 ml @ 100 mls/hr Q24H IV 06/27/17 09:00 06/27/17 09:22 (SoluMEDROL INJ) 40 mg Q12HR IV PUSH 06/27/17 09:00 06/27/17 10:13 Vancomycin HCl 1000 mg/Sodium Chloride 250 ml @ 250 mls/hr Q24H IV 06/28/17 09:00 Miscellaneous Information SPECIFIC LAB TO BE CLEMENT... ONCE ONCE .XX 06/30/17 08:45 06/30/17 08:46 (Peridex 0.12% Liq) 15 ml BID@08,20 MT 06/27/17 20:00 Midazolam HCl 100 ml @ 2 mls/hr TITRATE PRN IV 06/27/17 13:45 Cefepime HCl 2000 mg/Sodium Chloride 100 ml @ 200 mls/hr Q12H IV 06/28/17 00:00 (Lasix Inj) 40 mg Q12H IV PUSH 06/28/17 02:00 Diltiazem HCl 125 mg/Sodium Chloride 125 ml @ 5 mls/hr TITRATE PRN IV 06/27/17 17:00 Family History Heart disease . Substance Use Tobacco: None known Alcohol: None known Prescription med abuse: None known Illicits: None known . Spiritual/Cultural Factors Catholic dmitriy . Physical Exam Vital Signs Date Time Temp Pulse Resp B/P (MAP) Pulse Ox O2 Delivery O2 Flow Rate FiO2 06/27/17 15:00 121 06/27/17 15:00 95 Mechanical Ventilator 50 06/27/17 15:00 98.8 121 20 113/58 (76) 97 06/27/17 14:20 99 50 06/27/17 13:00 100 100 06/27/17 11:00 121 06/27/17 11:00 98.5 99 20 157/2 (53) 95 06/27/17 11:00 95 Non-Rebreather 15.00 100 06/27/17 11:00 98.5 104 26 157/82 98 06/27/17 10:30 97.6 98 30 155/70 96 06/27/17 10:15 98.0 122 28 157/75 96 06/27/17 10:00 97 40 06/27/17 10:00 97.8 90 26 150/70 96 06/27/17 09:50 96 Partial Rebreather 15.00 06/27/17 09:40 97.6 110 22 155/70 94 06/27/17 08:00 95 Venturi Mask 6.00 50 06/27/17 08:00 97.6 116 20 149/67 (94) 95 06/27/17 08:00 116 06/27/17 03:45 98 55 06/27/17 03:41 88 06/27/17 03:36 98 Bi-Pap 65 06/27/17 03:00 98.3 94 32 162/73 (102) 98 06/27/17 01:00 97 65 06/27/17 00:00 98.0 91 32 177/80 (112) 98 06/26/17 23:20 82 06/26/17 23:11 98 Bi-Pap 75 06/26/17 20:40 82 06/26/17 20:35 94 75 06/26/17 20:15 97 Bi-Pap 85 06/26/17 20:00 97.5 82 30 147/62 (90) 97 06/26/17 18:35 99 85 06/26/17 18:00 76 06/27/17 06/28/17 19:00 07:00 Intake Total 1145 ml Balance 1145 ml IV Total 717 ml FFP 318 ml Blood Product IV Normal Saline Flush 110 ml Bladder Scan Volume Amount 0 ml Exam CONSTITUTIONAL/GENERAL: This is an adequately nourished patient, in no apparent distress. TUBES/LINES/DRAINS: SKIN: No jaundice, rashes, or lesions. Ecchymoses on upper extremities. No wounds seen anteriorly. Skin temperature appropriate. Not diaphoretic. HEAD: Atraumatic. Normocephalic. EYES: Pupils equal and round and reactive. Extraocular motions intact. No scleral icterus. No injection or drainage. Fundi not examined. ENT: Hearing grossly normal. Nose without bleeding or purulent drainage. Throat without visible erythema, exudates, masses, or lesions. NECK: Trachea midline. Supple, nontender. No palpable thyroid enlargement or nodularity. CARDIOVASCULAR: Regular rate and rhythm without murmurs, gallops, or rubs. No JVD. Peripheral pulses symmetric. RESPIRATORY/CHEST: Symmetric, unlabored respirations. Clear to auscultation. Breath sounds equal bilaterally. No wheezes, rales, or rhonchi. GASTROINTESTINAL: Abdomen soft, non-tender, nondistended. No hepato-splenomegaly , or palpable masses. No guarding. Bowel sounds present. GENITOURINARY: Without palpable bladder distension. Payne catheter in place. MUSCULOSKELETAL: Extremities without clubbing, cyanosis, or edema. No joint tenderness or effusion noted. No calf tenderness. No mottling or clubbing. LYMPHATICS: No palpable cervical or supraclavicular adenopathy. NEUROLOGICAL: Awake and alert. Motor and sensory grossly within normal limits. Follows commands. Cognitively sharp. Moves all extremities. PSYCHIATRIC: No obvious anxiety/depression. no apparent hallucinations or other psychotic thought process. Diagnostic Tests Laboratory Laboratory Tests Test 06/25/17 04:37 06/26/17 04:34 06/26/17 17:59 06/26/17 19:10 Prothrombin Time 28.0 SEC (9.8-11.6) 37.9 SEC (9.8-11.6) Prothromb Time International Ratio 2.4 RATIO 3.3 RATIO White Blood Count 25.1 TH/MM3 (4.0-11.0) Red Blood Count 4.05 MIL/MM3 (4.00-5.30) Hemoglobin 12.0 GM/DL (11.6-15.3) Hematocrit 36.4 % (35.0-46.0) Mean Corpuscular Volume 89.8 FL (80.0-100.0) Mean Corpuscular Hemoglobin 29.6 PG (27.0-34.0) Mean Corpuscular Hemoglobin Concent 33.0 % (32.0-36.0) Red Cell Distribution Width 16.7 % (11.6-17.2) Platelet Count 95 TH/MM3 (150-450) Mean Platelet Volume 7.1 FL (7.0-11.0) Neutrophils (%) (Auto) 95.9 % (16.0-70.0) Lymphocytes (%) (Auto) 1.9 % (9.0-44.0) Monocytes (%) (Auto) 2.0 % (0.0-8.0) Eosinophils (%) (Auto) 0.0 % (0.0-4.0) Basophils (%) (Auto) 0.2 % (0.0-2.0) Neutrophils # (Auto) 24.1 TH/MM3 (1.8-7.7) Lymphocytes # (Auto) 0.5 TH/MM3 (1.0-4.8) Monocytes # (Auto) 0.5 TH/MM3 (0-0.9) Eosinophils # (Auto) 0.0 TH/MM3 (0-0.4) Basophils # (Auto) 0.0 TH/MM3 (0-0.2) CBC Comment AUTO DIFF Differential Comment AUTO DIFF CONFIRMED Blood Urea Nitrogen 28 MG/DL (7-18) Creatinine 0.84 MG/DL (0.50-1.00) Random Glucose 125 MG/DL (74-106) Total Protein 6.2 GM/DL (6.4-8.2) Albumin 2.5 GM/DL (3.4-5.0) Calcium Level 8.8 MG/DL (8.5-10.1) Magnesium Level 1.9 MG/DL (1.5-2.5) Alkaline Phosphatase 117 U/L (45-117) Aspartate Amino Transf (AST/SGOT) 23 U/L (15-37) Alanine Aminotransferase (ALT/SGPT) 28 U/L (10-53) Total Bilirubin 0.8 MG/DL (0.2-1.0) Sodium Level 139 MEQ/L (136-145) Potassium Level 3.0 MEQ/L (3.5-5.1) Chloride Level 100 MEQ/L (98-107) Carbon Dioxide Level 29.3 MEQ/L (21.0-32.0) Anion Gap 10 MEQ/L (5-15) Estimat Glomerular Filtration Rate 64 ML/MIN (>89) Phosphorus Level 2.8 MG/DL (2.5-4.9) B-Type Natriuretic Peptide 398 PG/ML (0-100) Blood Gas Puncture Site RT RADIAL Blood Gas Patient Temperature 98.6 Blood Gas HCO3 30 mmol/L (22-26) Blood Gas Base Excess 4.8 mmol/L (-2-2) Blood Gas Oxygen Saturation 96 % (90-100) Arterial Blood pH 7.35 (7.380-7.420) Arterial Blood Partial Pressure CO2 55 mmHg (38-42) Arterial Blood Partial Pressure O2 102 mmHg (61-120) Arterial Blood Oxygen Content 16.0 Vol % (12.0-20.0) Arterial Blood Carboxyhemoglobin 0.7 % (0-4) Arterial Blood Methemoglobin 1.3 % (0-2) Blood Gas Hemoglobin 11.8 G/DL (12.0-16.0) Oxygen Delivery Device BIPAP Blood Gas Ventilator Setting IPAP 12/EPAP 5 Blood Gas Inspired Oxygen 85 % Test 06/27/17 01:30 06/27/17 05:17 06/27/17 06:10 06/27/17 13:59 Urine Color YELLOW (YELLW/STRAW) Urine Turbidity HAZY (CLEAR) Urine pH 5.5 (5.0-8.5) Urine Specific [place] 1.017 (1.002-1.035) Urine Protein TRACE mg/dL (NEG-TRACE) Urine Glucose (UA) NEG mg/dL (NEG) Urine Ketones NEG mg/dL (NEG) Urine Occult Blood SMALL (NEG) Urine Nitrite NEG (NEG) Urine Bilirubin NEG (NEG) Urine Urobilinogen LESS THAN 2.0 MG/DL (LESS Urine Leukocyte Esterase LARGE (NEG) Urine RBC 15 /hpf (0-3) Urine WBC 83 /hpf (0-5) Urine WBC Clumps FEW (NONE) Urine Renal Epithelial Cells <1 /hpf (NONE) Urine Bacteria RARE /hpf (NONE) Urine Hyaline Casts 16 /lpf (RARE) Urine Mucus FEW /lpf (OCC) Microscopic Urinalysis Comment CATH-CULTURE IND White Blood Count 23.2 TH/MM3 (4.0-11.0) Red Blood Count 4.07 MIL/MM3 (4.00-5.30) Hemoglobin 11.8 GM/DL (11.6-15.3) Hematocrit 36.0 % (35.0-46.0) Mean Corpuscular Volume 88.4 FL (80.0-100.0) Mean Corpuscular Hemoglobin 28.9 PG (27.0-34.0) Mean Corpuscular Hemoglobin Concent 32.7 % (32.0-36.0) Red Cell Distribution Width 16.9 % (11.6-17.2) Platelet Count 57 TH/MM3 (150-450) Mean Platelet Volume 7.1 FL (7.0-11.0) Neutrophils (%) (Auto) 96.3 % (16.0-70.0) Lymphocytes (%) (Auto) 1.9 % (9.0-44.0) Monocytes (%) (Auto) 1.5 % (0.0-8.0) Eosinophils (%) (Auto) 0.0 % (0.0-4.0) Basophils (%) (Auto) 0.3 % (0.0-2.0) Neutrophils # (Auto) 22.3 TH/MM3 (1.8-7.7) Lymphocytes # (Auto) 0.4 TH/MM3 (1.0-4.8) Monocytes # (Auto) 0.4 TH/MM3 (0-0.9) Eosinophils # (Auto) 0.0 TH/MM3 (0-0.4) Basophils # (Auto) 0.1 TH/MM3 (0-0.2) CBC Comment AUTO DIFF Differential Comment AUTO DIFF CONFIRMED Platelet Estimate LOW (NORMAL) Platelet Morphology Comment NORMAL (NORMAL) Prothrombin Time 54.2 SEC (9.8-11.6) Prothromb Time International Ratio 4.6 RATIO Blood Urea Nitrogen 34 MG/DL (7-18) Creatinine 0.95 MG/DL (0.50-1.00) Random Glucose 115 MG/DL (74-106) Calcium Level 8.8 MG/DL (8.5-10.1) Phosphorus Level 2.9 MG/DL (2.5-4.9) Magnesium Level 2.0 MG/DL (1.5-2.5) Sodium Level 141 MEQ/L (136-145) Potassium Level 3.9 MEQ/L (3.5-5.1) Chloride Level 102 MEQ/L (98-107) Carbon Dioxide Level 27.1 MEQ/L (21.0-32.0) Anion Gap 12 MEQ/L (5-15) Estimat Glomerular Filtration Rate 55 ML/MIN (>89) Blood Gas Puncture Site RT RADIAL SRAVANTHI Blood Gas Patient Temperature 98.6 98.6 Blood Gas HCO3 28 mmol/L (22-26) 27 mmol/L (22-26) Blood Gas Base Excess 4.0 mmol/L (-2-2) 1.0 mmol/L (-2-2) Blood Gas Oxygen Saturation 96 % (90-100) 98 % (90-100) Arterial Blood pH 7.41 (7.380-7.420) 7.31 (7.380-7.420) Arterial Blood Partial Pressure CO2 45 mmHg (38-42) 55 mmHg (38-42) Arterial Blood Partial Pressure O2 126 mmHg (61-120) 370 mmHg (61-120) Arterial Blood Oxygen Content 16.9 Vol % (12.0-20.0) 16.1 Vol % (12.0-20.0) Arterial Blood Carboxyhemoglobin 0.7 % (0-4) 0.5 % (0-4) Arterial Blood Methemoglobin 1.5 % (0-2) 1.3 % (0-2) Blood Gas Hemoglobin 12.4 G/DL (12.0-16.0) 11.0 G/DL (12.0-16.0) Oxygen Delivery Device BIPAP VENTILATOR Blood Gas Ventilator Setting 12IPAP/5EPAP A/C16/450/PEEP10 Blood Gas Inspired Oxygen 55 % 100 % Test 06/27/17 14:26 Prothrombin Time 35.4 SEC (9.8-11.6) Prothromb Time International Ratio 3.0 RATIO Blood Urea Nitrogen 43 MG/DL (7-18) Creatinine 1.23 MG/DL (0.50-1.00) Random Glucose 143 MG/DL (74-106) Calcium Level 8.3 MG/DL (8.5-10.1) Sodium Level 143 MEQ/L (136-145) Potassium Level 4.1 MEQ/L (3.5-5.1) Chloride Level 106 MEQ/L (98-107) Carbon Dioxide Level 27.9 MEQ/L (21.0-32.0) Anion Gap 9 MEQ/L (5-15) Estimat Glomerular Filtration Rate 41 ML/MIN (>89) Result Diagram: 06/27/17 0517 06/27/17 1426 Microbiology Microbiology Date/Time Source Procedure Growth Status 06/26/17 21:38 Blood Peripheral Aerobic Blood Culture - Preliminary NO GROWTH IN 1 DAY Resulted 06/26/17 21:38 Blood Peripheral Anaerobic Blood Culture - Preliminary NO GROWTH IN 1 DAY Resulted 06/26/17 21:38 Blood Peripheral Aerobic Blood Culture - Preliminary NO GROWTH IN 1 DAY Resulted 06/26/17 21:38 Blood Peripheral Anaerobic Blood Culture - Preliminary NO GROWTH IN 1 DAY Resulted 06/27/17 15:03 Sputum Expectorated Sputum Gram Stain Pending Received 06/27/17 15:03 Sputum Expectorated Sputum Sputum Culture Pending Received 06/27/17 01:30 Urine Catheterized Urine Urine Culture Pending Received Procedures 06/03/17: Intubation 06/03/17: Cardiac catheterization 06/03/17: Right pigtail chest tube placement 06/04/17: Left IJ central line placement 06/05/17: Bronchoscopy 06/06/17 right pigtail chest tube placement 06/11/17: Extubation/Endotracheal reintubation 06/12/17: Right IJ central venous line 06/14/17: Bronchoscopy 06/27/17: Intubation 06/27/17: Right IJ central line placement Patient/Family Conference Issues Discussed: * Palliative care role, purpose, approach * Additional medical, psychosocial, and spiritual history * Patients general health, functional status, and cognitive changes in the months leading up to the current hospitalization * Patient/family understanding of the current medical problems * Patient/family understanding of prognosis * Patients goals of care as best understood from advance directives and/or conversations and/or values * Current medical treatment options and benefits/burdens of those options * Likely scenarios comparing ongoing aggressive care with a transition to comfort measures only * Questions answered to the best of my ability * Palliative care contact information provided Assessment and Plan Pertinent Non-Medical Issues Psychosocial: Spiritual: Catholic dmitriy Legal: Per [place] statutes, in the absence of written advanced directives healthcare proxy decision-making falls to this patient's spouse (Salvador Mahoney). Ethical issues impacting care: Important Contacts Salvador Mahoney, : [phone] Thank you for the opportunity to participate in the care of Ms. Mahoney. Courtney Zhou Jun 27, 2017 18:08
[2017-06-27] MEDS ORDERED: NOREPINEPHRINE 4 MG/D5W 250 ML IV PRN ×2 (18:30→19:00)
[2017-06-27] MEDS: MIDAZOLAM 100 MG/100 ML INJ 100 ML IV PRN (19:33)
[2017-06-27] MEDS: LACTATED RINGER'S 1000 ML INJ 1,000 ML IV SCH (20:10)
[2017-06-28] VITALS (31 sets, daily range): BP systolic 117–185; BP diastolic 1–91; PULSE 68–119; RESP 18–20; TEMP 97.6–99.1; O2SAT 98–100
[2017-06-28] MEDS: CEFEPIME INJ 2,000 MG in SODIUM CHLORIDE 0.9% INJ 100 ML IV SCH (00:38)
[2017-06-28] MEDS ORDERED: FUROSEMIDE 40 MG/4 ML VIAL IV PUSH SCH (02:00)
[2017-06-28] MEDS: hydrALAZINE HCL 20 MG/ML VIAL IV PUSH PRN ×2 (02:08→21:19)
[2017-06-28] MEDS: RESP: ALBUTEROL 2.5 MG/IPRATROPIUM 0.5 MG NEB (SCH) NEB ×4 (03:57→21:21)
[2017-06-28] MEDS: MIDAZOLAM 100 MG/100 ML INJ 100 ML IV PRN (04:29)
[2017-06-28] MEDS: METOPROLOL TARTRATE 25 MG TAB PO SCH ×3 (04:40→20:42)
[2017-06-28 05:12] LABS: AUTOMATED NEUTROPHIL # 9.3 TH/MM3 (1.8-7.7); HEMATOCRIT 25.7 % (35.0-46.0); LYMPH % 2.7 % (9.0-44.0); LYMPHOCYTE # 0.3 TH/MM3 (1.0-4.8); MEAN CELL VOLUME 87.4 FL (80.0-100.0); MEAN CORPUSCULAR HEMOGLOBIN 30.4 PG (27.0-34.0); MEAN CORPUSCULAR HGB CONC 34.7 % (32.0-36.0); MONO % 2.5 % (0.0-8.0); NEUT % 94.8 % (16.0-70.0); PLATELET COUNT 32 TH/MM3 (150-450); RED BLOOD COUNT 2.94 MIL/MM3 (4.00-5.30); RED CELL DISTRIBUTION WIDTH 16.3 % (11.6-17.2); WHITE BLOOD COUNT 9.9 TH/MM3 (4.0-11.0)
[2017-06-28 05:22] LABS: INTERNATIONAL NORMALIZED RATIO 3.3 RATIO; PROTHROMBIN TIME - PATIENT 38.5 SEC (9.8-11.6)
[2017-06-28] MEDS: ALBUMIN 25% INJ 100 ML IV SCH ×2 (05:27→17:55)
[2017-06-28] MEDS: LEVOTHYROXINE SODIUM 50 MCG TAB PO SCH (05:27)
[2017-06-28] MEDS: METOCLOPRAMIDE HCL 10 MG/2 ML VIAL IV PUSH SCH ×3 (05:28→20:42)
[2017-06-28 05:39] LABS: ALKALINE PHOSPHATASE 82 U/L (45-117); ALT (GPT) 21 U/L (10-53); ANION GAP 13 MEQ/L (5-15); AST (GOT) 18 U/L (15-37); BICARBONATE 26.1 MEQ/L (21.0-32.0); BLOOD UREA NITROGEN 52 MG/DL (7-18); CHLORIDE 105 MEQ/L (98-107); GLOMERULAR FILTRATION RATE 36 ML/MIN (>89); MAGNESIUM 1.9 MG/DL (1.5-2.5); POTASSIUM 3.5 MEQ/L (3.5-5.1); SODIUM (NA) 144 MEQ/L (136-145); TOTAL BILIRUBIN ADULT 1.1 MG/DL (0.2-1.0)
[2017-06-28 05:42] LABS: CREATINE KINASE 22 U/L (26-192)
[2017-06-28 06:16] LABS: HEMO FLAGS AUTO DIFF
--- NOTE | 2017-06-28 07:02 | HHI.CCPN ---
Subjective Remarks/Hospital Course I was emergently called to laboratory specialist by Dr. Corrales. Ms. Mahoney who is 89 yo female with history of severe aortic stenosis was undergoing left and right heart catheter for TAVR evaluation. With right heart catheterization patient developed acute massive hemoptysis with shock secondary to acute rupture of pulmonary artery. Patient was intubated by Dr. Potter and ETT was advance to Right lung for selective right lung ventilation due to massive hemorrhage from Left lung. On my arrival to laboratory specialist, patient was rapidly dropping blood pressure. Dopamine was already started. I ordered Shantanu-Synephrine, at 300 mcg/ m in an attempt to increase MAP and also increase the pulmonary vasoconstriction. Levophed was also added to maintain blood pressure and rapidly titrated up. Emergency release blood initially 3 units was ordered stat along with 2 units of FFP, 1 unit of platelet. I also emergently contacted Dr. Vásquez was in the office. (Dr. Bedoya the on-call CT surgeon was operating). While on Levophed Shantanu-Synephrine and dopamine, patient developed coarse V. fib/V. tach, received brief CPR, and was DC cardioverted 1 with return of spontaneous circulation and sinus rhythm. I discussed with Dr. Corrales and anesthesiologist, I also contacted Dr. Josue from invasive radiology.Dr. Josue immediately arrived to the laboratory specialist. Dr. Abdelrahman francis performed PARVIN which showed vigorous LV contraction but cavity was empty. Received Continuous massive fluid resuscitation with multiple crystalloid boluses, bicarbonate and calcium. Blood arrived and initially 3 units of PRBC, 2 units of 1 unit of platelets was given with calcium total 3 g given after blood transfusion. Because of persistent hypotension, additional 2 units of PRBC was given. While I resuscitated the patient, Dr. Corrales and Dr. Jennings performed right heart cath, identified bleeding of a small branch in the left pulmonary artery. They put put in 6 coils in the lower left lower pulmonary artery followed with Gelfoam closing the perforation. 06/04: Emergency chest 2 yesterday for right pneumothorax with hypotension and hypoxia. Remains intubated sedated and on Levophed. FiO2 remains at 100%, Sat improving to 94-95 %. UO adequate overnight. 2-D echo on my review normal LV and RV function, no PFO on bubble study 06/05: Patient is in atrial fibrillation currently on Cardene infusion for blood pressure control. Chest x-ray shows percutaneous emphysema and small apical pneumothorax. Remains on 80% FiO2. I discussed with interventional radiology. We will attempt CT-guided repositioning of the pigtail catheter and possibly upgrading to a larger tube. Urine output adequate 750 mL in 24 hours 06/06: Currently remains in A. fib with rate controlled, hypertensive on Cardizem drip. Oxygen saturation has improved FiO2 now to 40% with saturation 97%. Urine output excellent with Lasix 4.5 L in 24 hours. Chest x-ray today shows 2.5 cm bilateral apical pneumothorax, also left side has 1.2 cm lateral pneumothorax 06/07: Intubated, on low dose propofol for ventilator synchrony. FiO2 40% oxygen saturation 99%. Chest x-ray and labs pending urine output 2.7 L. 3 chest tubes with no air leak. If neuro exam not improving off sedation will check CT of the head. Currently on propofol will exchange trouble shooter to Precedex to initiate weaning trials. On weaning doses of inhaled Flolan currently on 30, 000 ng 06/08: Remains intubated, mild sedation with Precedex. Overnight FiO2 increased to 65% for hypoxia. CXR left more than right consolidation of lower lobes. Sputum positive for MRSA on vancomycin. Bilateral lower extremity US studies yesterday showed DVT, initiated on IV heparin. Currently therapeutic on heparin. No evidence of pulmonary hemorrhage. Neuro exam is improving weekly follows commands all 4 extremities 06/09: remains intubated. failed CPAP yesterday. on Cleviprex and precedex. fio2 back to 40%. CXR improved aeration with the exception of known LLL. FC x 4. 06/10: failed SBT again for apnea. but much more awake. denies pain. ROS negative. off cleviprex. new air leak in chest tube. will get chest xray to re- eval. 06/11: Warm, well perfused. Alert, cooperative. Communicates with head nod, hand gestures. Comfortable respiratory pattern and acceptable excursions.Air leaks will seal when off positive pressure ventilation. FiO2 to 0.80 last night briefly; now 0.40. I'll come back later today and see if I can get her extubated. 06/12: Required re-intubation for hypoxemic respiratory failure last evening. She is now warm with well perfused fingers and toes. Low dose levophed not hampering peripheral perfusion. Mild prerenal azotemia. CXR with diffuse infiltrates as before. WBC 32,00, afebrile. Must assume colonized lungs at least. Antibiotic coverage is appropriate. Reculture sputum, urine. Progress to weaning trials daily.Hemodynamics appear excellent, rate a minor problem pretty well controlled. Continue Vanc. Stop pip/roxi, start cefepime. Narrow after cultures. Change CVLs, draw blood cultures. 06/13: Persistent leukocytosis, Tmax 100.2. O2 diffusion acceptable on positive pressure ventilation. Sputum culture pending. Remains warm and well perfused. Continue daily spontaneous breathing trials. 06/14: Bronch and BAL this morning by Dr. Muñoz. Gas exchange remains acceptable. Continue SBTs. 06/15: Looks great on SBTs/CPAP. She would benefit from a temporary tracheostomy. But she will eventually be off and extubated for good. C&S pending from BAL. Continue present abx regimen - discussed with Dr. Segura. 06/16: Awake alert following commands on vent. Currently on Precedex 0.5 g per KG per hour. Still has large amount of ETT secretions, but improving. R pigtail dislodged with turning, no pneumo on repeat CXR 06/17: Awake alert on low dose Precedex. Tolerated CPAP yesterday. Not extubated yesterday due copious bloody secretions. The chest x-ray shows some interval improvement and secretions slightly improved. Will proceed with SBT and possible extubation 06/18: Extubated yesterday tolerating very well. Coughing up sputum, cough seems adequate. Slight increase in WBC to 19.1. Received single dose of Decadron yesterday. Overall doing well communicating, no fever 06/19: WBC count slightly improved 17.9. Otherwise breathing comfortably. Single episode of delirium overnight. Will remove Payne today and also remove right chest tube 06/20: Up in chair, labs pending. CXR showing slight increase in L effusion. Will check bedside US. [facility] Re consult Note: 06/26/17: Critical care reconsulted for acute desaturation. After patient was sat on the side of the bed and when put back in the bed she acutely desaturated to mid 70s. Placed on nonrebreather and I was asked to evaluate the patient by Dr. Corrales. On my exam patient is in moderate distress, diffuse crackles on the chest. Stat chest x-ray shows acute change from chest x-ray 2 days ago. Bilateral diffuse interstitial and alveolar infiltrates with bilateral pleural effusions consistent with CHF. IV 20 mg Lasix given stat. Payne reinserted. Stat Bumex infusion started and transfer to ICU stat and placed on BiPAP 12 over 5. At this time does not need reintubation but this is a possibility 06/27: Remains on BiPAP overnight, slightly tachypneic but oxygen saturation 97 % on 55% FiO2. Chest x-ray shows improved bilateral infiltrate indicating improving CHF. After receiving additional Lasix and Bumex infusion urine output approximately 800 ml in 24 hours. Bumex infusion was increased to 1 mg per hour. UA shows evidence of UTI. Platelet count dropped to 57, most likely secondary to sepsis. DC Zyvox start vancomycin reconsult ID. Cefepime was added yesterday 06/28: Intubated yesterday noon due to acute worsening of hypoxemic respiratory failure. Remains intubated sedated critically ill though stabilizing. WBC count has normalized to 9.9 but platelet count further decreased to 32. I will increase Solu-Medrol 40 every 8 hours and get hematology consult. BUN/ creatinine 50/1.39, slightly worsened but urine output remains excellent a terminal overnight. Plan for right thoracentesis today after FFP and platelet transfusion. Currently only on 2 mcg/m of Levophed. 2 D Echo yesterday showed increased mean gradient. May need BAV as bridge to TAVR (secondary to flash pulmonary edema and heart failure) Objective Vital Signs Date Time Temp Pulse Resp B/P (MAP) Pulse Ox O2 Delivery O2 Flow Rate FiO2 06/28/17 03:59 99 40 06/28/17 03:00 Mechanical Ventilator 06/28/17 03:00 99.1 98 20 117/41 (66) 06/27/17 11:00 15.00 Intake and Output 06/28/17 06/28/17 06/29/17 08:00 16:00 00:00 Intake Total 178 ml Balance 178 ml Result Diagram: 06/28/17 0435 06/28/17 0435 Other Results Laboratory Tests Test 06/27/17 13:59 Blood Gas Puncture Site SRAVANTHI Blood Gas Patient Temperature 98.6 Blood Gas HCO3 27 mmol/L (22-26) Blood Gas Base Excess 1.0 mmol/L (-2-2) Blood Gas Oxygen Saturation 98 % (90-100) Arterial Blood pH 7.31 (7.380-7.420) Arterial Blood Partial Pressure CO2 55 mmHg (38-42) Arterial Blood Partial Pressure O2 370 mmHg (61-120) Arterial Blood Oxygen Content 16.1 Vol % (12.0-20.0) Arterial Blood Carboxyhemoglobin 0.5 % (0-4) Arterial Blood Methemoglobin 1.3 % (0-2) Blood Gas Hemoglobin 11.0 G/DL (12.0-16.0) Oxygen Delivery Device VENTILATOR Blood Gas Ventilator Setting A/C16/450/PEEP10 Blood Gas Inspired Oxygen 100 % Objective Remarks GENERAL: Lying in bed intubated sedated. Remains on Levophed 2 mcg/m SKIN: Skin/dry. ENT: Oral cavity is moist. Orotracheally intubated. NECK: Trachea midline. Supple. Positive JVD CARDIOVASCULAR: Remains in atrial fibrillation rate controlled now. Systolic murmur over apex and LSB. RESPIRATORY: Air entry equally diminished with bilateral crackles, improving, few scattered wheezes. Bedside ultrasound showed moderate to large right effusion GASTROINTESTINAL: Abdomen Soft, no guarding. BS active. MUSCULOSKELETAL: Limbs well perfused. NEUROLOGICAL: Intubated heavily sedated with Versed. Moves extremities Urinary Catheter: Yes Assessment to: Continue Vascular Central Line Catheter: Yes Assessment to: Continue Date of Insertion: Jun 27, 2017 Side: Right Location: Internal, Jugular A/P Assessment and Plan Assessment: 89yF with severe aortic stenosis, course complicated by Pulmonary Artery rupture during right heart catheterization, pneumothorax secondary to barotrauma, MRSA healthcare associated pneumonia now with acute hypoxic respiratory failure, from flash pulmonary edema due to diastolic CHF and also UTI with sepsis NEURO: - Versed for sedation and ventilator synchrony, start brief daily sedation medications - Holding home sertraline. Tylenol PRN - Initial CT of the head and C-spine negative for acute injury RESP: Acute hypoxemic respiratory failure Pulmonary edema/pleural effusions s/p Left lower pulmonary artery rupture with massive hemorrhage 06/03/17 MRSA pneumonia Previous Large Left hemothorax s/p IR chest tube placement, residual L pneumo after evacuation Previous Bilateral apical pneumothorax Bilateral lower extremity DVT - Transferred to ICU 06/26/17 initiated on BiPAP 12. Intubated 06/27/17 for worsening hypoxemic respiratory failure - Continue ACV, FiO2 down to 40% PEEP 8. - Scheduled DuoNeb every 6 hours and when necessary. Continue INH Budesonide - Chest x-ray 06/26 shows extensive bilateral interstitial and alveolar infiltrates with bilateral pleural effusions consistent with acute CHF exacerbation - CXR 06/27 interval improvement in pulmonary edema - Initiate CPAP trials without extubation (No extubation prior to BAV) - s/p coil and Gelfoam closure of Left lower pulmonary artery (peripheral small branch) by Rhoda Corrales and Michaela (see resuscitation note on 06/03/17) - Last Extubated 06/16/17. Previously Required re-intubation 06/02 for hypoxemia - Prev Chest x-ray LLL pneumonia vs lung infarct. Sputum with MRSA. (Was on Zyvox, Levaquin-see ID section for new ABX) - Previously s/p chest tube x2 for right pneumothorax on 06/03. New apical chest tube placed 06/06/17 - IR, placed 24 F Left chest tube 06/05 with drainage of 2 L hemothorax, residual pneumothorax present, now resolved - s/p Bronchoscopy on 06/03/17 with removal of blood predominantly from L lung, s/p repeat bronch 06/06, 06/15 - Venous duplex -bilateral lower extremity DVT. INR 3.3 CV/Heme: CHF/pulmonary edema Acute Diastolic HF exacerbation Severe Aortic Stenosis Atrial fibrillation with RVR Thrombocytopenia secondary to sepsis and ITB History of ITP Bilateral lower extremity DVT - Discussed extensively with Dr. Corrales. Echo 06/27 shows mean gradient of ?42. Heart failure is secondary to severe aortic stenosis and diastolic dysfunction - Plan for BAV in the next 1-[address] Corrales, now went weaning until then - Diuretics on hold due to hypotension and worsening creatinine - Continue LR at 50 ML per hour. - INR 3.3 holding Coumadin. Give 2 U FFP and 1 unit of platelets to facilitate thoracentesis - Place on IV steroid for ITP, IV Solu Medrol 40 mg every 12-increased to every 8 hours. Promacta for ITP. Consult hematology - Continue Cardizem PO. Continue metoprolol at 25 mg by mouth every 8 hours. Home dose of digoxin - Cardizem infusion if needed for rate control - Levophed at 2 mcg/m to maintain map above 65 - Previously Received 6 units of PRBC, 2 units of FFP and one of platelets 06/03. PARVIN normal LV contractility, volume depletion - 2D Echo 06/04 RV LV function look normal, no PFO. 2 D Echo 06/27 report pending - Holding losartan 50mg daily. GI: Ileus - Nothing by mouth except meds, KUB shows improving ileus06/25, repeat today - Start tube feeds after procedure - Continue IV Reglan, GI following : - Monitor renal function closely. Payne catheter. Urine output adequate - Creat Slightly increased to 1.39, UO adequate ID: Sepsis UTI Prev MRSA pneumonia - Started on cefepime 06/26/17 for severe sepsis. Started Vanc 06/27/17. DC Zyvox due to thrombocytopenia - Micafungin added 08/27 as the patient had been on antibiotics for prolonged duration - Continue Levaquin, ID re consult with Dr. Segura. Follow-up on blood urine and sputum cultures - Prev BAL culture MRSA. ENDO: - Replace electrolytes per protocol PROPH: - No SCDs due to DVT. IV Protonix. Coumadin on hold due to INR 3.3 LINES: RIJ central line placed 06/27 accidentally dislodged, will place new Overall impression: Critically ill with acute hypoxemic respiratory from CHF exacerbation, secondary to diastolic dysfunction and severe . Will need BAV as bridge to TAVR. Critically ill but stable at this time. D/W Dr. Corrales CCT 35 MIN Tanika Esquivel MD Jun 28, 2017 07:02
--- NOTE | 2017-06-28 07:07 | RADRPT ---
EXAM DATE/TIME: 06/28/2017 06:47 [facility] COMPARISON: CHEST SINGLE AP, June 27, 2017, 13:35. INDICATIONS : Respiratory disease. MEDICAL HISTORY : Congestive heart failure. Hypercholesterolemia. Hypothyroidism. SURGICAL HISTORY : Tonsillectomy. Pacemaker. Ventral hernia repair. Repair of left femoral ENCOUNTER: Subsequent ACUITY: 1 month PAIN SCORE: Non-responsive. LOCATION: Bilateral chest FINDINGS: Nasogastric tube has been inserted and appears to be in appropriate position. Small bilateral pleural effusions remain evident. Lungs are stable again demonstrating mild vascular prominence but no significant consolidation or bibi dence of pulmonary edema. Cardiomediastinal structures are stable. Endotracheal tube and central venous catheter remain in good position. CONCLUSION: 1. New nasogastric tube in appropriate position. 2. Small bilateral pleural effusions unchanged. 3. Otherwise stable chest Edgar Lema MD on June 28, 2017 at 7:01 Board Certified Radiologist. This report was verified electronically.
--- NOTE | 2017-06-28 07:55 | ECHRPT ---
Indication: as/heart failure CONCLUSIONS Moderate concentric left ventricular hypertrophy. Normal left ventricular size. Mild mitral valve regurgitation. Mitral annular calcification is present. Severe aortic valve stenosis. Aortic valve area is 0.49 cm. Aortic valve mean gradient is 42 mmHg. There is mild tricuspid valve regurgitation. The estimated pulmonary arterial pressure is 49.9 mmHg. BP: / HR: Rhythm: MEASUREMENTS (Male / Female) Normal Values Technical Quality:Good 2D ECHO LV Diastolic Diameter PLAX 3.3 cm 4.2 - 5.9 / 3.9 - 5.3 cm LV Systolic Diameter PLAX 2.4 cm IVS Diastolic Thickness 1.6 cm 0.6 - 1.0 / 0.6 - 0.9 cm LVPW Diastolic Thickness 1.5 cm 0.6 - 1.0 / 0.6 - 0.9 cm LV Relative Wall Thickness 0.9 RV Internal Dim ED PLAX 2.3 cm LVOT Diameter 1.6 cm M-MODE Aortic Root Diameter MM 2.8 cm LA Systolic Diameter MM 2.6 cm LA Ao Ratio MM 0.9 DOPPLER AV Peak Velocity 434.3 cm/s AV Peak Gradient 75.5 mmHg AV Mean Gradient 42.0 mmHg AV Velocity Time Integral 58.4 cm AI Peak Velocity 333.0 cm/s AI Peak Gradient 44.4 mmHg AI Pressure Half Time 702.0 ms LVOT Peak Velocity 123.0 cm/s LVOT Peak Gradient 6.1 mmHg LVOT Velocity Time Integral 14.2 cm AV Area Cont Eq vti 0.5 cm AV Area Cont Eq pk 0.6 cm TR Peak Velocity 316.0 cm/s TR Peak Gradient 39.9 mmHg Right Atrial Pressure 10.0 mmHg Pulmonary Artery Systolic Pressu 49.9 mmHg Right Ventricular Systolic Press 49.9 mmHg FINDINGS LEFT VENTRICLE The left ventricular systolic function is normal with an estimated ejection fraction in the range of 60-65%. Moderate concentric left ventricular hypertrophy. Normal left ventricular size. RIGHT VENTRICLE Normal right ventricular size and systolic function. LEFT ATRIUM The left atrial size is normal. RIGHT ATRIUM The right atrial size is normal. ATRIAL SEPTUM Normal atrial septal thickness without atrial level shunting by limited color doppler interrogation. AORTA The aortic root and proximal ascending aorta are normal in size on limited imaging. MITRAL VALVE Mild mitral valve regurgitation. Mitral annular calcification is present. AORTIC VALVE Moderate to severe aortic valve stenosis. Aortic valve area is 0.49 cm. Aortic valve mean gradient is 42 mmHg. TRICUSPID VALVE Structurally normal tricuspid valve. There is mild tricuspid valve regurgitation. The estimated pulmonary arterial pressure is 49.9 mmHg. PULMONARY VALVE No pulmonary valve regurgitation or stenosis. VESSELS The inferior vena cava is normal in size. PERICARDIUM No pericardial effusion. Brad Page MD (Electronically Signed) Final Date:28 June 2017 07:54
[2017-06-28] MEDS: INSULIN ASPART SUPPLEMENTAL SCALE SQ SCH ×2 (08:00→20:00)
[2017-06-28] MEDS: CHLORHEXIDINE 0.12% (ORAL KIT) 15 ML CUP MT SCH ×4 (08:00→20:00)
[2017-06-28] MEDS ORDERED: diphenhydrAMINE HCL 50 MG/ML VIAL ONE (08:08)
--- NOTE | 2017-06-28 08:20 | RADRPT ---
EXAM DATE/TIME: 06/28/2017 07:56 [facility] COMPARISON: CHEST SINGLE AP, June 28, 2017, 6:47. INDICATIONS : Central line placement MEDICAL HISTORY : Congestive heart failure. Hypercholesterolemia. Hypothyroidism. SURGICAL HISTORY : Tonsillectomy. Pacemaker. Ventral hernia repair. Repair of left femoral ENCOUNTER: Subsequent ACUITY: 1 month PAIN SCORE: Non-responsive. LOCATION: Bilateral chest FINDINGS: A left internal jugular central venous catheter has been placed. Its tip extends into the proximal hansen perior vena cava. There is no evidence of pneumothorax. The chest is otherwise stable. Small bilateral effusions remain evident. Patchy airspace disease is seen throughout both lungs. Endotracheal and nasogastric tubes remain in good position. Pacemaker again noted. CONCLUSION: 1. Satisfactory placement of left-sided central venous catheter. 2. Stable chest without evidence of pneumothorax. 3. COPD with patchy airspace disease and bilateral pleural effusions; unchanged. Edgar Lema MD on June 28, 2017 at 8:17 Board Certified Radiologist. This report was verified electronically.
--- NOTE | 2017-06-28 08:40 | PD.PROCEDR ---
Central Line Procedure REASON FOR PROCEDURE Central venous access PROCEDURE PERFORMED Central line placement: LIJ central line (need for invasive axis, accidental dislodgment of right IJ) CONSENT Informed consent for procedure was obtained and time out performed. The risks and benefits of the procedure were discussed to include but limited to bleeding , clot formation, infection, and even . ANESTHESIA Local injection of 1% Lidocaine DESCRIPTION OF THE PROCEDURE The patient was placed in supine, mild Trendelenburg position. The area was exposed and cleansed with ChloraPrep, times two. Large sterile drape was used to cover the patient, with the site exposed, under sterile conditions including cap, face mask, sterile gown, and sterile gloves. On single attempt, the introducer needle was inserted with negative pressure in syringe and venous flash was obtained. The guide wire was then advanced without any restriction and the needle was removed. The dilator was used without any complications. Using Seldinger technique the LIJ catheter was advanced over the guide wire to a depth of 18 centimeters. The guide wire was removed. All ports were aspirated with dark venous blood return and flushed easily with sterile saline. All ports were capped. Antibiotic disc was placed around central line at puncture site. The central line was secured to the skin with two interrupted 2.0 silk sutures. The area was bandaged with sterile see-through central line bandage. RADIOLOGICAL DATA Ultrasound guidance was used to locate LIJ COMPLICATIONS: No apparent complications ESTIMATED BLOOD LOSS: Less than 1 cc. Tanika Esquivel MD Jun 28, 2017 08:40
--- NOTE | 2017-06-28 08:44 | PD.PROCEDR ---
Procedure Note Procedure US guided right Thoracentesis Date: 06/28/17 Indication: Large right pleural effusion, hypoxemic respiratory failure A time-out was completed verifying correct patient, procedure, site, positioning , and special equipment if applicable. The patients right side was prepped and draped in a sterile manner after the appropriate infiltration level was confirmed by ultrasound. 1% lidocaine was used anesthetize the surrounding skin. A 10-blade scalpel used to make small incision. The thoracentesis Angiocath was then threaded without difficulty. Clear straw colored pleural fluid was aspirated and Angiocath needle was removed. Total 600 ml clear yellow pleural fluid was removed. A post-procedure chest x-ray was ordered and the fluid will be sent for several studies. Estimated Blood Loss: negligible The patient tolerated the procedure well and there were no complications. 1U FFP and 1 pack unit of platelet was given prior to procedure Tanika Esquivel MD Jun 28, 2017 08:44
--- NOTE | 2017-06-28 08:51 | HHI.GIFU ---
Subjective Remarks Followup for possible PEG placement and ileus/constipation. Patient is intubated and sedated. (Karley Lopez) Objective Vitals I&O Vital Signs Date Time Temp Pulse Resp B/P (MAP) Pulse Ox O2 Delivery O2 Flow Rate FiO2 06/28/17 08:16 98.2 118 19 164/91 100 06/28/17 08:00 97.8 119 19 164/91 (115) 99 140/40 (73) 06/28/17 08:00 109 06/28/17 07:59 98.3 117 19 166/64 99 06/28/17 07:34 97.9 95 19 185/71 99 06/28/17 03:59 99 40 06/28/17 03:00 97 Mechanical Ventilator 50 06/28/17 03:00 99.1 98 20 117/41 (66) 98 06/28/17 03:00 105 06/28/17 00:25 99 50 06/27/17 23:14 98 Mechanical Ventilator 50 06/27/17 23:14 97.6 112 18 153/54 (87) 99 06/27/17 23:00 109 06/27/17 20:43 98 Mechanical Ventilator 50 06/27/17 20:43 98.6 108 18 157/55 (89) 99 06/27/17 20:25 98 50 06/27/17 19:04 96 82/34 06/27/17 19:00 99 06/27/17 16:25 99 50 06/27/17 15:00 121 06/27/17 15:00 95 Mechanical Ventilator 50 06/27/17 15:00 98.8 121 20 113/58 (76) 97 06/27/17 14:20 99 50 06/27/17 13:00 100 100 06/27/17 11:00 121 06/27/17 11:00 98.5 99 20 157/2 (53) 95 06/27/17 11:00 95 Non-Rebreather 15.00 100 06/27/17 11:00 98.5 104 26 157/82 98 06/27/17 10:30 97.6 98 30 155/70 96 06/27/17 10:15 98.0 122 28 157/75 96 06/27/17 10:00 97 40 06/27/17 10:00 97.8 90 26 150/70 96 06/27/17 09:50 96 Partial Rebreather 15.00 06/27/17 09:40 97.6 110 22 155/70 94 I/O 06/27/17 06/27/17 06/27/17 06/28/17 06/28/17 06/28/17 07:00 15:00 23:00 07:00 15:00 23:00 Intake Total 975 ml 1145 ml 60 ml 238 ml 10 ml Output Total 725 ml 310 ml 800 ml Balance 250 ml 1145 ml -250 ml -562 ml 10 ml Intake Oral 0 ml IV Total 775 ml 717 ml 178 ml Albumin 200 ml FFP 318 ml Blood Product IV Normal Saline Flush 110 ml 10 ml Tube Irrigant 60 ml 60 ml Output Urine Total 725 ml 300 ml 800 ml Gastric Drainage Total 10 ml Bladder Scan Volume Amount 0 ml # Bowel Movements 0 0 0 Laboratory Laboratory Tests Test 06/27/17 13:59 06/27/17 14:26 06/27/17 22:10 06/28/17 04:35 Blood Gas Puncture Site SRAVANTHI Blood Gas Patient Temperature 98.6 Blood Gas HCO3 27 Blood Gas Base Excess 1.0 Blood Gas Oxygen Saturation 98 Arterial Blood pH 7.31 Arterial Blood Partial Pressure CO2 55 Arterial Blood Partial Pressure O2 370 Arterial Blood Oxygen Content 16.1 Arterial Blood Carboxyhemoglobin 0.5 Arterial Blood Methemoglobin 1.3 Blood Gas Hemoglobin 11.0 Oxygen Delivery Device VENTILATOR Blood Gas Ventilator Setting A/C16/450/PEEP10 Blood Gas Inspired Oxygen 100 Prothrombin Time 35.4 38.5 Prothromb Time International Ratio 3.0 3.3 Blood Urea Nitrogen 43 52 Creatinine 1.23 1.39 Random Glucose 143 126 Calcium Level 8.3 8.3 Sodium Level 143 144 Potassium Level 4.1 3.5 Chloride Level 106 105 Carbon Dioxide Level 27.9 26.1 Anion Gap 9 13 Estimat Glomerular Filtration Rate 41 36 Total Creatine Kinase 29 18 22 Troponin I 0.13 0.14 0.14 White Blood Count 9.9 Red Blood Count 2.94 Hemoglobin 8.9 Hematocrit 25.7 Mean Corpuscular Volume 87.4 Mean Corpuscular Hemoglobin 30.4 Mean Corpuscular Hemoglobin Concent 34.7 Red Cell Distribution Width 16.3 Platelet Count 32 Mean Platelet Volume 8.4 Neutrophils (%) (Auto) 94.8 Lymphocytes (%) (Auto) 2.7 Monocytes (%) (Auto) 2.5 Eosinophils (%) (Auto) 0.0 Basophils (%) (Auto) 0.0 Neutrophils # (Auto) 9.3 Lymphocytes # (Auto) 0.3 Monocytes # (Auto) 0.2 Eosinophils # (Auto) 0.0 Basophils # (Auto) 0.0 CBC Comment AUTO DIFF Activated Partial Thromboplast Time 39.0 Total Protein 6.1 Albumin 3.0 Magnesium Level 1.9 Alkaline Phosphatase 82 Aspartate Amino Transf (AST/SGOT) 18 Alanine Aminotransferase (ALT/SGPT) 21 Total Bilirubin 1.1 Date/Time Source Procedure Growth Status 06/26/17 21:38 Blood Peripheral Aerobic Blood Culture - Preliminary NO GROWTH IN 1 DAY Resulted 06/26/17 21:38 Blood Peripheral Anaerobic Blood Culture - Preliminary NO GROWTH IN 1 DAY Resulted 06/09/17 09:45 Stool Stool Stool Occult Blood (KIM) - Final HEMOCCULT POSITIVE Complete 06/27/17 15:03 Sputum Expectorated Sputum Gram Stain - Final Resulted 06/27/17 15:03 Sputum Expectorated Sputum Sputum Culture Pending Resulted 06/27/17 01:30 Urine Catheterized Urine Urine Culture Pending Received 06/12/17 13:20 Catheter Tip Central Venous Line Wound Culture - Final NO GROWTH IN 48 HOURS. Complete Imaging Last Impressions Chest X-Ray 06/28/17 0000 Signed Impressions: Service Date/Time: Wednesday, June 28, 2017 07:56 - CONCLUSION: 1. Satisfactory placement of left-sided central venous catheter. 2. Stable chest without evidence of pneumothorax. 3. COPD with patchy airspace disease and bilateral pleural effusions; unchanged. Edgar Lema MD Abdomen X-Ray 06/27/17 0000 Signed Impressions: Service Date/Time: Tuesday, June 27, 2017 09:42 - CONCLUSION: Negative for ileus or obstruction. Rajesh Rincon MD FACR Renal Ultrasound 06/26/17 0000 Signed Impressions: Service Date/Time: June 08:51 - CONCLUSION: Normal examination. Alvin Walls MD Tunnelled Chest Tube Removal 06/13/17 0000 Signed Impressions: Service Date/Time: Tuesday, June 13, 2017 00:00 - CONCLUSION: Uncomplicated chest tube removal. Joselo Jennings MD Upper Extremity Ultrasound 06/07/17 Signed Impressions: Service Date/Time: Wednesday, June 07, 2017 18:21 - CONCLUSION: 1. Limited exam but no deep venous thrombosis is identified bilaterally. Jamie Corrales MD Lower Extremity Ultrasound 06/07/17 Signed Impressions: Service Date/Time: Wednesday, June 07, 2017 17:57 - CONCLUSION: 1. Positive bilateral lower extremity deep venous thrombosis, nonocclusive as above. Jamie Corrales MD Head CT 06/07/17 Signed Impressions: Service Date/Time: Wednesday, June 07, 2017 17:01 - CONCLUSION: 1. No acute intracranial abnormality. 2. Extensive subcutaneous air tracking up from the chest. Luc Cain Jr., MD Cervical Spine CT 06/07/17 Signed Impressions: Service Date/Time: Wednesday, June 07, 2017 17:01 - CONCLUSION: 1. Extensive subcutaneous emphysema. 2. Tiny left apical pneumothorax. 3. Diffuse mild degenerative changes without central canal stenosis. Multilevel neural foraminal narrowing. 4. Prevertebral soft tissues obscured by an endotracheal tube and nasogastric tube. Luc Cain Jr., MD Chest Tube Insertion 06/05/17 Signed Impressions: Service Date/Time: May 09:15 - CONCLUSION: Uncomplicated chest tube placement as above. Maxwell Aldana MD Chest CT 06/05/17 Signed Impressions: Service Date/Time: May 08:47 - CONCLUSION: 1. Moderate left-sided hemothorax with associated left lower lobe consolidation which may reflect a combination of compressive atelectasis, aspiration, and potentially lung infarction given recent pulmonary artery embolization. 2. Trace right apical pneumothorax with large bore chest tube in the major fissure and smallbore chest tube in the soft tissues. Significant subcutaneous emphysema extending to the cervicothoracic junction bilaterally. 3. Airspace consolidation in the right lower lobe posteriorly may reflect aspiration. Maxwell Aldana MD Embolization 06/03/17 Signed Impressions: Service Date/Time: Saturday, June 03, 2017 00:00 - CONCLUSION: Left pulmonary artery rupture with successful coil embolization of a lower lobe branch vessel as above. Joselo Jennings MD Physical Exam HEENT: Normocephalic; atraumatic; no jaundice. Intubated on vent CHEST: Diminished. Bilateral crackles. CARDIAC: Irregular, systolic murmur. ABDOMEN: Soft, mild distention; no hepatosplenomegaly; bowel sounds are active EXTREMITIES: Generalized edema. END MATCHER: Sedated on vent (Karley Lopez) Assessment and Plan Plan ASSESSMENT: - Ileus/Constipation. KUB (06/23/17)---> Nonspecific bowel gas pattern with some air filled loops of mildly dilated small bowel and nondilated colon. This may be an ileus. S/P SSE x 2 on 06/23 , no response per nurse. Has not had bowel movement since. Last BM 06/21. Clinically, no n/v. KUB ()---> Mild air distention of small and large bowel in a nonobstructive pattern. The mildly dilated small bowel segments documented previously have mostly resolved. 2. Severe atherosclerotic disease. Reglan. Miralax daily. - Anemia. HH dropped from 11.8/36 on 06/27 to 8.9/25.7 on 06/28. Platelets 32. 2 units of FFP and 2 units of platelets ordered. - Severe aortic stenosis, S/P left and right heart catheter for TAVR evaluation. Developed right heart catheterization patient developed acute massive hemoptysis with shock secondary to acute rupture of pulmonary artery. S/P Dr. Corrales and Dr. Jennings performed right heart cath, identified bleeding of a small branch in the left pulmonary artery- S/P 6 coils in the lower left lower pulmonary artery followed with Gelfoam closing the perforation. - Atrial fibrillation. Cardizem, Digoxin, BB. - Resp. Failure, PTX, PNA, poss aspiration. Patient intubated 05/27 due to worsening hypoxemic respiratory failure. Right thoracentesis planned today due to moderate to large right effusion noted on bedside ultrasound. PEG placement pending family decision. - Vfib/Vtach. S/P CPR, cardioversion- ROSC. 06/27/17 KUB neg for ileus or obstruction but seems distended, tympanitic today. OGT to LIWS. she was intubated this morning, probable aspiration. d/w primary re placement PEG tube. POA is pts son Faisal Mahoney [phone]. He was hesitant to pursue PEG tube placement, citing over all decline and repeated intubations,prolonged stay in hospital. He requested time to speak with family and was interested in speaking with palliative care. PLAN - Possible PEG tube placement early next week, if family decides to pursue - OGT to LIWS - Monitor labs - Await palliative care consult - Continue Reglan and Miralax - Supportive care - Further recommendations to follow based on results of above Patient seen and examined by Dr. Licona and myself and this note is written on his behalf (Karley Lopez) Physician Comments Seen and examined, plan as above. Will schedule PEG placement early next week after decision from the family. Further recommendations to follow. (Yoly Licona MD) Karley Lopez Jun 28, 2017 08:51 Yoly Licona MD Jun 28, 2017 11:02
[2017-06-28] MEDS ORDERED: VANCOMYCIN 1,000 MG/NS 250 ML IV SCH ×2 (09:00)
--- NOTE | 2017-06-28 09:51 | RADRPT ---
EXAM DATE/TIME: 06/28/2017 09:18 [facility] COMPARISON: CHEST SINGLE AP, June 28, 2017, 7:56. INDICATIONS : Post right thoracentesis MEDICAL HISTORY : Congestive heart failure. Hypercholesterolemia. Hypothyroidism. SURGICAL HISTORY : Tonsillectomy. Pacemaker. Ventral hernia repair. Repair of left femoral ENCOUNTER: Initial ACUITY: 1 day PAIN SCORE: Non-responsive. LOCATION: Right chest FINDINGS: Right pleural effusion has decreased in size following thoracentesis. There is no evidence of pneumot horax. Chest is otherwise stable area small left effusion remains evident. Support devices are in stable position. Lungs are hyperaerated CONCLUSION: Decreased right pleural effusion following thoracentesis. No evidence of pneumothorax. Otherwise stable chest. Edgar Lema MD on June 28, 2017 at 9:48 Board Certified Radiologist. This report was verified electronically.
[2017-06-28 09:55] LABS: TOTAL PROTEIN,PLEURAL FLUID 2.7 GM/DL
[2017-06-28] MEDS: ELTROMBOPAG 50 MG TAB PO SCH (10:00)
[2017-06-28] MEDS: MICAFUNGIN INJ 100 MG in SODIUM CHLORIDE 0.9% INJ 100 ML IV SCH (10:03)
[2017-06-28] MEDS: DOCUSATE SODIUM 100 MG/10 ML UDC PO SCH ×2 (10:07→20:40)
[2017-06-28] MEDS: PANTOPRAZOLE SODIUM 40 MG VIAL IV PUSH SCH ×2 (10:07→20:41)
[2017-06-28] MEDS: POLYETHYLENE GLYCOL 17 GM PKG PO SCH (10:07)
[2017-06-28] MEDS: NYSTATIN SUSP 500,000 U/5 ML CUP SWISH-SWAL SCH ×4 (10:07→20:41)
[2017-06-28] MEDS: POTASSIUM CHLORIDE 25 MEQ EFFERVESCENT TAB PO SCH ×2 (10:08→20:41)
[2017-06-28] MEDS: DIGOXIN 0.125 MG TAB PO SCH (10:09)
[2017-06-28 10:10] LABS: HYPERSEGMENTED POLYS 1+ (NORMAL); OVALOCYTES 1+ (NORMAL); PLATELET ESTIMATE SMEAR LOW (NORMAL); PLATELET MORPHOLOGY NORMAL (NORMAL); SCAN/DIFF AUTO DIFF CONFIRMED
[2017-06-28 10:21] LABS: PLEURAL FLUID LYMPHS 1 %
[2017-06-28] MEDS ORDERED: POTASSIUM PHOSPHATE INJ 30 MMOL in SODIUM CHLOR 0.9% 250 ML INJ 250 ML IV PRN (11:00)
[2017-06-28] MEDS ORDERED: POTASSIUM PHOSPHATE MONOBASIC 500 MG TAB PO PRN (11:00)
[2017-06-28] MEDS ORDERED: MAGNESIUM SULFATE INJ 2 GM in SODIUM CHLORIDE 0.9% INJ 96 ML IV PRN (11:00)
[2017-06-28] MEDS ORDERED: POTASSIUM CHLOR 40 MEQ PREMIX 100 ML IV PRN ×2 (11:00)
[2017-06-28] MEDS ORDERED: SODIUM PHOSPHATE INJ 30 MMOL in SODIUM CHLOR 0.9% 250 ML INJ 240 ML IV PRN (11:00)
[2017-06-28] MEDS ORDERED: MAGNESIUM SULFATE INJ 4 GM in SODIUM CHLORIDE 0.9% INJ 92 ML IV PRN (11:00)
[2017-06-28] MEDS ORDERED: POTASSIUM PHOSPHATE MONOBASIC 500 MG TAB PO/TUBE PRN (11:00)
[2017-06-28] MEDS ORDERED: POTASSIUM CHLORIDE 25 MEQ EFFERVESCENT TAB PO PRN (11:00)
[2017-06-28] MEDS ORDERED: POTASSIUM CHLOR 20 MEQ PREMIX 100 ML IV PRN (11:00)
[2017-06-28] MEDS ORDERED: MAGNESIUM OXIDE 400 MG TAB PO PRN (11:00)
[2017-06-28] MEDS: RESP: BUDESONIDE 0.5 MG/2 ML NEB NEB SCH ×2 (11:01→21:21)
[2017-06-28] MEDS: POTASSIUM CHLOR 20 MEQ PREMIX 100 ML IV PRN (11:14)
[2017-06-28] MEDS: PROPOFOL 1000 MG/100 ML INJ 100 ML IV PRN ×2 (11:15→18:07)
--- NOTE | 2017-06-28 11:23 | PD.CARD.PN ---
Subjective Subjective Remarks Overnight events Aspiration Resp Failure Flash Pulmonary Edema afebrile Objective Medications Current Medications Medications (Trade) Dose Ordered Sig/Padmini Route Start Time Stop Time Status Last Admin (Peridex 0.12% Liq) 15 ml BID@08,20 MT 06/03/17 20:00 06/28/17 10:02 (Duoneb Neb) 1 ampule Q2HR NEB PRN NEB 06/03/17 19:00 06/15/17 19:56 (K-Lyte Cl Eff) 50 meq UNSCH PRN PO 06/03/17 19:15 (Mag-Ox) 800 mg UNSCH PRN PO 06/03/17 19:15 (K-Phos) 2,000 mg Q4H PRN PO 06/03/17 19:15 (K-Phos) 2,000 mg UNSCH PRN PO/TUBE 06/03/17 19:15 (D50w (Vial) Inj) 50 ml UNSCH PRN IV PUSH 06/04/17 12:15 (Glucagon Inj) 1 mg UNSCH PRN OTHER 06/04/17 12:15 (Lopressor Inj) 1.25 mg Q6H PRN IV PUSH 06/04/17 19:15 06/06/17 20:29 (Colace Liq) 100 mg Q12HR PO 06/05/17 14:00 06/28/17 10:07 (K-Lyte Cl Eff) 25 meq Q12HR PO 06/05/17 14:00 06/28/17 10:08 (Lanoxin) 0.125 mg DAILY PO 06/06/17 09:00 Future Hold 06/28/17 10:09 (Lopressor) 25 mg Q8HR PO 06/07/17 14:00 06/26/17 14:41 (Cozaar) 50 mg DAILY PO 06/07/17 09:00 Future Hold 06/27/17 08:34 (Apresoline Inj) 20 mg Q4H PRN IV PUSH 06/07/17 08:00 06/28/17 02:08 (Synthroid) 50 mcg DAILY@0600 PO 06/07/17 08:00 06/28/17 05:27 (Promacta) 25 mg DAILY@1000 PO 06/08/17 10:00 06/27/17 10:00 (Pill Splitter) 1 ea UNSCH PRN OTHER 06/07/17 22:15 (NovoLOG SUPPLEMENTAL SCALE) 1 BID@0800,2000 SQ 06/08/17 20:00 06/15/17 08:43 (Mycostatin Liq) 5 ml QID SWISH-SWAL 06/12/17 13:00 06/28/17 10:07 (Pulmicort Respule Neb) 0.5 mg Q12HR NEB NEB 06/16/17 11:15 06/28/17 11:01 (Tylenol 650 Mg/ 20 ml Liq) 650 mg Q6H PRN PO 06/18/17 06:30 06/26/17 05:11 Pharmacy Profile Note 0 ml @ 0 mls/hr UNSCH OTHER 06/20/17 10:00 (Zofran Inj) 4 mg Q6H PRN IV PUSH 06/22/17 19:30 06/23/17 08:40 (Cardizem) 90 mg Q6HR PO 06/23/17 12:00 Future Hold 06/27/17 12:14 (Mucinex Er) 600 mg BID PO 06/23/17 10:15 06/27/17 20:25 (Levaquin) 250 mg Q24H PO 06/24/17 09:00 Future Hold 06/26/17 09:29 (Protonix Inj) 40 mg DAILY IV PUSH 06/24/17 09:00 07/17/17 09:00 06/28/17 10:07 (Reglan Inj) 5 mg Q8HR IV PUSH 06/23/17 17:45 06/28/17 05:28 (Vasotec Inj) 1.25 mg Q6H PRN IV PUSH 06/25/17 08:45 (Coumadin) 2 mg DAILY@1600 PO 06/25/17 16:00 Future Hold 06/25/17 16:00 (Miralax) 17 gm DAILY PO 06/25/17 09:45 06/28/17 10:07 (Melatonin) 5 mg HS PRN PO 06/25/17 16:15 (Duoneb Neb) 1 ampule Q6HR NEB NEB 06/26/17 22:00 06/28/17 11:01 Albumin Human 100 ml @ 60 mls/hr Q12H IV 06/26/17 18:00 06/28/17 05:27 Micafungin Sodium 100 mg/Sodium Chloride 100 ml @ 100 mls/hr Q24H IV 06/27/17 09:00 06/28/17 10:03 Miscellaneous Information SPECIFIC LAB TO BE ... ONCE ONCE .XX 06/30/17 08:45 06/30/17 08:46 (Peridex 0.12% Liq) 15 ml BID@08,20 MT 06/27/17 20:00 Cefepime HCl 2000 mg/Sodium Chloride 100 ml @ 200 mls/hr Q12H IV 06/28/17 00:00 06/28/17 00:38 Diltiazem HCl 125 mg/Sodium Chloride 125 ml @ 5 mls/hr TITRATE PRN IV 06/27/17 17:00 Lactated Ringer's 1,000 ml @ 50 mls/hr Q20H IV 06/27/17 18:30 06/27/17 20:10 (SoluMEDROL INJ) 40 mg Q8HR IV PUSH 06/28/17 14:00 Propofol 100 ml @ 1.59 mls/hr TITRATE PRN IV 06/28/17 10:00 06/28/17 11:15 Ceftaroline Fosamil 600 mg/ Sodium Chloride 100 ml @ 100 mls/hr Q12H IV 06/28/17 12:00 Potassium Chloride 100 ml @ 50 mls/hr Q2H PRN IV 06/28/17 11:00 Potassium Chloride 100 ml @ 50 mls/hr Q2H PRN IV 06/28/17 11:00 (K-Lyte Cl Eff) 50 meq UNSCH PRN PO 06/28/17 11:00 Potassium Chloride 100 ml @ 25 mls/hr UNSCH PRN IV 06/28/17 11:00 Potassium Chloride 100 ml @ 50 mls/hr Q2H PRN IV 06/28/17 11:00 06/28/17 11:14 Magnesium Sulfate 4 gm/Sodium Chloride 100 ml @ 50 mls/hr UNSCH PRN IV 06/28/17 11:00 (Mag-Ox) 800 mg UNSCH PRN PO 06/28/17 11:00 Magnesium Sulfate 2 gm/Sodium Chloride 100 ml @ 50 mls/hr UNSCH PRN IV 06/28/17 11:00 (K-Phos) 2,000 mg Q4H PRN PO 06/28/17 11:00 Sodium Phosphate 30 mmol/Sodium Chloride 250 ml @ 42 mls/hr UNSCH PRN IV 06/28/17 11:00 (K-Phos) 2,000 mg UNSCH PRN PO/TUBE 06/28/17 11:00 Potassium Phosphate 30 mmol/ Sodium Chloride 260 ml @ 42 mls/hr UNSCH PRN IV 06/28/17 11:00 Vital Signs / I&O Vital Signs Date Time Temp Pulse Resp B/P (MAP) Pulse Ox O2 Delivery O2 Flow Rate FiO2 06/28/17 10:00 97.6 73 19 171/53 99 06/28/17 09:45 97.6 70 18 174/58 99 06/28/17 09:30 97.6 76 19 173/54 99 06/28/17 09:15 97.6 72 19 166/55 99 06/28/17 08:54 75 19 153/44 99 06/28/17 08:50 99 40 06/28/17 08:45 98.2 96 19 154/49 100 06/28/17 08:30 97.6 107 19 164/91 100 06/28/17 08:16 98.2 118 19 164/91 100 06/28/17 08:15 98.2 89 19 148/46 99 06/28/17 08:00 97.8 119 19 164/91 (115) 99 140/40 (73) 06/28/17 08:00 98 40 06/28/17 08:00 109 06/28/17 08:00 100 Mechanical Ventilator 40 06/28/17 07:59 98.3 117 19 166/64 99 06/28/17 07:34 97.9 95 19 185/71 99 06/28/17 03:59 99 40 06/28/17 03:00 97 Mechanical Ventilator 50 06/28/17 03:00 99.1 98 20 117/41 (66) 98 06/28/17 03:00 105 06/28/17 00:25 99 50 06/27/17 23:14 98 Mechanical Ventilator 50 06/27/17 23:14 97.6 112 18 153/54 (87) 99 06/27/17 23:00 109 06/27/17 20:43 98 Mechanical Ventilator 50 06/27/17 20:43 98.6 108 18 157/55 (89) 99 06/27/17 20:25 98 50 06/27/17 19:04 96 82/34 06/27/17 19:00 99 06/27/17 16:25 99 50 06/27/17 15:00 121 06/27/17 15:00 95 Mechanical Ventilator 50 06/27/17 15:00 98.8 121 20 113/58 (76) 97 06/27/17 14:20 99 50 06/27/17 13:00 100 100 I/O 06/27/17 06/27/17 06/27/17 06/28/17 06/28/17 06/28/17 07:00 15:00 23:00 07:00 15:00 23:00 Intake Total 975 ml 1145 ml 60 ml 238 ml 1308 ml Output Total 725 ml 310 ml 800 ml Balance 250 ml 1145 ml -250 ml -562 ml 1308 ml Intake Oral 0 ml IV Total 775 ml 717 ml 178 ml Albumin 200 ml FFP 318 ml 700 ml Platelets 288 ml Blood Product IV Normal Saline Flush 110 ml 320 ml Tube Irrigant 60 ml 60 ml Output Urine Total 725 ml 300 ml 800 ml Gastric Drainage Total 10 ml Bladder Scan Volume Amount 0 ml # Bowel Movements 0 0 0 Physical Exam GENERAL: Intubated, pupils reactive, Alert, awake, oriented SKIN: Warm and dry. HEAD: Normocephalic. EYES: No scleral icterus. No injection or drainage. NECK: Supple, trachea midline. No JVD or lymphadenopathy. CARDIOVASCULAR: Irr Irr 2/6SEM no gallops, or rubs. RESPIRATORY: Vented. GASTROINTESTINAL: Abdomen soft, non-tender, nondistended. EXTREMITIES: No cyanosis, or edema. Laboratory Laboratory Tests Test 06/27/17 13:59 06/27/17 14:26 06/27/17 22:10 06/28/17 04:35 Blood Gas Puncture Site SRAVANTHI Blood Gas Patient Temperature 98.6 Blood Gas HCO3 27 mmol/L Blood Gas Base Excess 1.0 mmol/L Blood Gas Oxygen Saturation 98 % Arterial Blood pH 7.31 Arterial Blood Partial Pressure CO2 55 mmHg Arterial Blood Partial Pressure O2 370 mmHg Arterial Blood Oxygen Content 16.1 Vol % Arterial Blood Carboxyhemoglobin 0.5 % Arterial Blood Methemoglobin 1.3 % Blood Gas Hemoglobin 11.0 G/DL Oxygen Delivery Device VENTILATOR Blood Gas Ventilator Setting A/C16/450/PEEP10 Blood Gas Inspired Oxygen 100 % Prothrombin Time 35.4 SEC 38.5 SEC Prothromb Time International Ratio 3.0 RATIO 3.3 RATIO Blood Urea Nitrogen 43 MG/DL 52 MG/DL Creatinine 1.23 MG/DL 1.39 MG/DL Random Glucose 143 MG/DL 126 MG/DL Calcium Level 8.3 MG/DL 8.3 MG/DL Sodium Level 143 MEQ/L 144 MEQ/L Potassium Level 4.1 MEQ/L 3.5 MEQ/L Chloride Level 106 MEQ/L 105 MEQ/L Carbon Dioxide Level 27.9 MEQ/L 26.1 MEQ/L Anion Gap 9 MEQ/L 13 MEQ/L Estimat Glomerular Filtration Rate 41 ML/MIN 36 ML/MIN Total Creatine Kinase 29 U/L 18 U/L 22 U/L Troponin I 0.13 NG/ML 0.14 NG/ML 0.14 NG/ML White Blood Count 9.9 TH/MM3 Red Blood Count 2.94 MIL/MM3 Hemoglobin 8.9 GM/DL Hematocrit 25.7 % Mean Corpuscular Volume 87.4 FL Mean Corpuscular Hemoglobin 30.4 PG Mean Corpuscular Hemoglobin Concent 34.7 % Red Cell Distribution Width 16.3 % Platelet Count 32 TH/MM3 Mean Platelet Volume 8.4 FL Neutrophils (%) (Auto) 94.8 % Lymphocytes (%) (Auto) 2.7 % Monocytes (%) (Auto) 2.5 % Eosinophils (%) (Auto) 0.0 % Basophils (%) (Auto) 0.0 % Neutrophils # (Auto) 9.3 TH/MM3 Lymphocytes # (Auto) 0.3 TH/MM3 Monocytes # (Auto) 0.2 TH/MM3 Eosinophils # (Auto) 0.0 TH/MM3 Basophils # (Auto) 0.0 TH/MM3 CBC Comment AUTO DIFF Differential Comment AUTO DIFF CONFIRMED Hypersegmented Polys 1+ Platelet Estimate LOW Platelet Morphology Comment NORMAL Ovalocytes 1+ Activated Partial Thromboplast Time 39.0 SEC Total Protein 6.1 GM/DL Albumin 3.0 GM/DL Magnesium Level 1.9 MG/DL Alkaline Phosphatase 82 U/L Aspartate Amino Transf (AST/SGOT) 18 U/L Alanine Aminotransferase (ALT/SGPT) 21 U/L Total Bilirubin 1.1 MG/DL Test 06/28/17 09:00 Pleural Fluid pH 8.0 Pleural Fluid WBC 464 /MM3 Pleural Fluid RBC 1018 /MM3 Pleural Fluid Neutrophils 99 % Pleural Fluid Lymphocytes 1 % Pleural Fluid Total Protein 2.7 GM/DL Pleural Fluid LDH 190 U/L Pleural Fluid Glucose 123 MG/DL Imaging Last 24 hours Impressions Chest X-Ray 06/28/17 0000 Signed Impressions: Service Date/Time: Wednesday, June 28, 2017 09:18 - CONCLUSION: Decreased right pleural effusion following thoracentesis. No evidence of pneumothorax. Otherwise stable chest. Edgar Lema MD Chest X-Ray 06/28/17 0000 Signed Impressions: Service Date/Time: Wednesday, June 28, 2017 07:56 - CONCLUSION: 1. Satisfactory placement of left-sided central venous catheter. 2. Stable chest without evidence of pneumothorax. 3. COPD with patchy airspace disease and bilateral pleural effusions; unchanged. Edgar Lema MD Chest X-Ray 06/28/17 0000 Signed Impressions: Service Date/Time: Wednesday, June 28, 2017 06:47 - CONCLUSION: 1. New nasogastric tube in appropriate position. 2. Small bilateral pleural effusions unchanged. 3. Otherwise stable chest Edgar Lema MD Assessment and Plan Problem List: (1) Respiratory failure ICD Codes: J96.90 - Respiratory failure, unspecified, unspecified whether with hypoxia or hypercapnia Plan: Aspiration PNA UTI Severe ITP ENZO Diastolic Dysfunction Improve from respiratory standpoint. Sedated intubated. Weaning FIO2. s/p thoracentesis Flash pulmonary edema and HF decompensated multifactorial however she does have significant . At this point if weaning from the vent difficulty we can consider to do a BAV as a bridge to TAVR after recovery from prologue hospitalization. However aspiration major concenr and needs to be address. Recommendations: Non-Contrast CT of Chest ABD and Pelvis Aspiration precautions ?Peg Tube GI to follow Antx per ID Will plan for BAV either Friday or Friday Follow CBC. 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 (2) Shock, postoperative ICD Codes: T81.10XA - Postprocedural shock unspecified, initial encounter Status: Resolved (3) Pulmonary arterial thrombosis ICD Codes: I26.99 - Other pulmonary embolism without acute cor pulmonale Status: Acute (4) CAD (coronary artery disease) ICD Codes: I25.10 - Atherosclerotic heart disease of [place] coronary artery without angina pectoris (5) Aortic stenosis ICD Codes: I35.0 - Nonrheumatic aortic (valve) stenosis (6) DVT (deep venous thrombosis) ICD Codes: I82.409 - Acute embolism and thrombosis of unspecified deep veins of unspecified lower extremity Problem Qualifiers (1) Respiratory failure: Qualified Codes: J96.01 - Acute respiratory failure with hypoxia (2) DVT (deep venous thrombosis): Brad Page MD Jun 28, 2017 11:23
[2017-06-28] MEDS ORDERED: ATROPINE SULFATE 1 MG/10 ML SYRINGE ONE (11:25)
[2017-06-28] MEDS ORDERED: EPINEPHrine HCL (1:10,000) 1 MG/10 ML SYRINGE ONE (11:25)
[2017-06-28] MEDS ORDERED: CEFTAROLINE INJ 600 MG in SODIUM CHLORIDE 0.9% INJ 100 ML IV SCH (12:00)
[2017-06-28] MEDS: guaiFENesin E.R. 600 MG TAB PO SCH ×2 (12:09→20:40)
[2017-06-28] MEDS: CEFTAROLINE INJ 600 MG in SODIUM CHLORIDE 0.9% INJ 100 ML IV SCH (12:35)
--- NOTE | 2017-06-28 13:26 | RADRPT ---
EXAM DATE/TIME: 06/28/2017 11:33 [facility] COMPARISON: No previous studies available for comparison. INDICATIONS : Pre Operative TAVRS, IV CONTRAST: none RADIATION DOSE: 5.13 CTDIvol (mGy) MEDICAL HISTORY : Cardiovascular disease. Carcinoma, colon. VENT SURGICAL HISTORY : None. ENCOUNTER: Initial ACUITY: 1 day PAIN SCALE: Non-responsive LOCATION: Bilateral chest TECHNIQUE: Volumetric scanning was performed using a multi-row detector CT scanner. The data was post processed with a variety of visualization algorithms including full volume maximum intensity projection, multi -planar sliding thin slab reformation, curved planar reformation, and surface rendering techniques. Using automated exposure control and adjustment of the mA and/or kV according to patient size, radiat ion dose was kept as low as reasonably achievable to obtain optimal diagnostic quality images. DIC OM format image data is available electronically for review and comparison. FINDINGS: CARDIAC: Noncontrasted study. Dense calcification of the coronaries. AORTIC ROOT/VALVE: Cusps can not be evaluated. Dense calcification is present, however. The aortic root measures 2.8 cm. Mid ascending thoracic aorta measures 3.7 cm with mild calcifications. THORACIC AORTA: Bovine arch with dense calcification of the arch vessels, most severe in the left subclavian where th ere may be an associated significant stenosis. ABDOMINAL AORTA: No aneurysmal disease. Dense calcification CELIAC ARTERY: No obvious aneurysmal disease on this noncontrasted study. SMA: Calcification. No obvious aneurysmal disease. RIGHT RENAL ARTERY: Not well-visualized. LEFT RENAL ARTERY: Not well-visualized. RIGHT COMMON ILIAC: Atherosclerotic calcification of the common iliac. The common femoral measures 8-9 mm. LEFT COMMON ILIAC: Atherosclerotic calcification of the common iliac. The common femoral measures 8-9 mm. THORAX: Left basilar consolidation/atelectasis. This is distal to the embolization coils in the left lower lo be. Small left sided effusion. On the right, patchy airspace disease could represent pneumonic infilt rate. Dense calcification of the mitral valve anulus. ABDOMEN: Severe disease of the descending and sigmoid colon without obvious diverticulitis. Generalized anasar ca the soft tissues of the trunk and pelvis. PELVIS: Severe diverticular disease of the sigmoid colon without diverticulitis urinary bladder is decompress ed with a Payne catheter. Patient appears to have had a hysterectomy CONCLUSION: 1. Limited exam without IV contrast. Aortic root measurements as above. 2. Dense calcification of the mitral valve annulus and the aortic valve. Dense calcification of the c oronary arteries. 3. Distal to the embolic coils in the left lower lobe, there is a left basilar consolidation with ass ociated small effusion. 4. On the right, there is patchy airspace disease. Pattern is concerning for possible pneumonic infil trate. 5. Generalized anasarca may indicate some right heart insufficiency. Joselo Jennings MD on June 28, 2017 at 13:08 Board Certified Radiologist. This report was verified electronically.
[2017-06-28] MEDS ORDERED: MAGNESIUM SULFATE 1 GM PREMIX 100 ML IV ONE (14:00)
--- NOTE | 2017-06-28 14:05 | HHI.IDPN ---
Subjective Subjective Remarks Ms. Mahoney who is 89 yo female with history of severe aortic stenosis who was undergoing left and right heart catheter for TAVR evaluation. With right heart catheterization patient developed acute massive hemoptysis with shock secondary to acute rupture of pulmonary artery. Patient was intubated by Dr. Potter and ETT was advance to Right lung for selective right lung ventilation due to massive hemorrhage from Left lung. While on Levophed Shantanu-Synephrine and dopamine , patient developed coarse V. fib/V. tach, received brief CPR, and was DC cardioverted 1 with return of spontaneous circulation and sinus rhythm. A PARVIN was performed which showed vigorous LV contraction but cavity was empty. Patient received continuous massive fluid resuscitation with multiple crystalloid boluses, bicarbonate and calcium. Patient needed resuscitation and blood products were instilled. Dr. Jennings performed right heart cath, identified bleeding of a small branch in the left pulmonary artery. They put put in 6 coils in the lower left lower pulmonary artery followed with Gelfoam closing the perforation. Other pertinent events in ICU stay: 06/04: Emergency chest 2 yesterday for right pneumothorax with hypotension and hypoxia. 06/05: Patient was in Atrial fibrillation currently on Cardene infusion for blood pressure control. Chest x-ray shows percutaneous emphysema and small apical pneumothorax. 06/08: Overnight FiO2 increased to 65% for hypoxia. CXR left more than right consolidation of lower lobes. Sputum positive for MRSA on vancomycin. Bilateral lower extremity US studies showed DVT, initiated on IV heparin. 06/11: Extubated. Required re-intubation for hypoxemic respiratory failure on . 06/13: Persistent leukocytosis, Tmax 100.2. At the time of my evaluation, pt is in the CCU on ventilator CPAP trials being attempted. UO good. Has CTs in place. Not on pressors. Opens eyes follows commands, writes on a note pad. Due to new fever and WBC elevation ID was consulted. Avilez cultures obtained earlier. Delayed entry seen at ~ 10 am. Overnight events reviewed. Chart reviewed since last seen by me. Reintubated yday for resp distress, concern for aspiration prior to event. Hypothermic trends on temps. No rash No diarrhea Secretions small white to pompa, not much suctioning needed. UO fair. Antibiotics Cefepime IV Vanco IV Levaquin IV Lines Line sites with no e.o infection Past Medical History Hypertension Coronary artery disease Paroxysmal atrial fibrillation ITP Anemia Aortic stenosis severe Hypercholesterolemia Hypothyroidism Malignant colonic neoplasm Right hearing loss Pacemaker insertion January 29, 2013 Tonsillectomy Hernia Cataract PTCA Partial colectomy in 1999 Allergies: Coded Allergies: Sulfa (Sulfonamide Antibiotics) (Unverified Allergy, Severe, 06/03/17) promethazine (Unverified Allergy, Severe, 06/03/17) adhesive (Unverified Allergy, Unknown, 06/03/17) Objective . Vital Signs Date Time Temp Pulse Resp B/P (MAP) Pulse Ox O2 Delivery O2 Flow Rate FiO2 06/28/17 11:30 100 100 06/28/17 11:00 97.8 78 19 158/1 (53) 99 154/56 (88) 06/28/17 11:00 100 Mechanical Ventilator 40 06/28/17 11:00 68 06/28/17 10:00 97.6 73 19 171/53 99 06/28/17 09:45 97.6 70 18 174/58 99 06/28/17 09:30 97.6 76 19 173/54 99 06/28/17 09:15 97.6 72 19 166/55 99 06/28/17 08:54 75 19 153/44 99 06/28/17 08:50 99 40 06/28/17 08:45 98.2 96 19 154/49 100 06/28/17 08:30 97.6 107 19 164/91 100 06/28/17 08:16 98.2 118 19 164/91 100 06/28/17 08:15 98.2 89 19 148/46 99 06/28/17 08:00 97.8 119 19 164/91 (115) 99 140/40 (73) 06/28/17 08:00 98 40 06/28/17 08:00 109 06/28/17 08:00 100 Mechanical Ventilator 40 06/28/17 07:59 98.3 117 19 166/64 99 06/28/17 07:34 97.9 95 19 185/71 99 06/28/17 03:59 99 40 06/28/17 03:00 97 Mechanical Ventilator 50 06/28/17 03:00 99.1 98 20 117/41 (66) 98 06/28/17 03:00 105 06/28/17 00:25 99 50 06/27/17 23:14 98 Mechanical Ventilator 50 06/27/17 23:14 97.6 112 18 153/54 (87) 99 06/27/17 23:00 109 06/27/17 20:43 98 Mechanical Ventilator 50 06/27/17 20:43 98.6 108 18 157/55 (89) 99 06/27/17 20:25 98 50 06/27/17 19:04 96 82/34 06/27/17 19:00 99 06/27/17 16:25 99 50 06/27/17 15:00 121 06/27/17 15:00 95 Mechanical Ventilator 50 06/27/17 15:00 98.8 121 20 113/58 (76) 97 06/27/17 14:20 99 50 06/28/17 06/28/17 06/29/17 15:00 23:00 07:00 Intake Total 1441 ml Balance 1441 ml IV Total 133 ml FFP 700 ml Platelets 288 ml Blood Product IV Normal Saline Flush 320 ml . Laboratory Tests Test 06/26/17 17:59 06/27/17 05:17 06/28/17 04:35 White Blood Count 25.1 TH/MM3 23.2 TH/MM3 9.9 TH/MM3 Red Blood Count 4.05 MIL/MM3 4.07 MIL/MM3 2.94 MIL/MM3 Hemoglobin 12.0 GM/DL 11.8 GM/DL 8.9 GM/DL Hematocrit 36.4 % 36.0 % 25.7 % Mean Corpuscular Volume 89.8 FL 88.4 FL 87.4 FL Mean Corpuscular Hemoglobin 29.6 PG 28.9 PG 30.4 PG Mean Corpuscular Hemoglobin Concent 33.0 % 32.7 % 34.7 % Red Cell Distribution Width 16.7 % 16.9 % 16.3 % Platelet Count 95 TH/MM3 57 TH/MM3 32 TH/MM3 Mean Platelet Volume 7.1 FL 7.1 FL 8.4 FL Neutrophils (%) (Auto) 95.9 % 96.3 % 94.8 % Lymphocytes (%) (Auto) 1.9 % 1.9 % 2.7 % Monocytes (%) (Auto) 2.0 % 1.5 % 2.5 % Eosinophils (%) (Auto) 0.0 % 0.0 % 0.0 % Basophils (%) (Auto) 0.2 % 0.3 % 0.0 % Neutrophils # (Auto) 24.1 TH/MM3 22.3 TH/MM3 9.3 TH/MM3 Lymphocytes # (Auto) 0.5 TH/MM3 0.4 TH/MM3 0.3 TH/MM3 Monocytes # (Auto) 0.5 TH/MM3 0.4 TH/MM3 0.2 TH/MM3 Eosinophils # (Auto) 0.0 TH/MM3 0.0 TH/MM3 0.0 TH/MM3 Basophils # (Auto) 0.0 TH/MM3 0.1 TH/MM3 0.0 TH/MM3 CBC Comment AUTO DIFF AUTO DIFF AUTO DIFF Differential Comment AUTO DIFF CONFIRMED AUTO DIFF CONFIRMED AUTO DIFF CONFIRMED Platelet Estimate LOW LOW Platelet Morphology Comment NORMAL NORMAL Hypersegmented Polys 1+ Ovalocytes 1+ Laboratory Tests Test 06/26/17 17:59 06/27/17 05:17 06/27/17 14:26 06/27/17 22:10 Blood Urea Nitrogen 28 MG/DL 34 MG/DL 43 MG/DL Creatinine 0.84 MG/DL 0.95 MG/DL 1.23 MG/DL Random Glucose 125 MG/DL 115 MG/DL 143 MG/DL Total Protein 6.2 GM/DL Albumin 2.5 GM/DL Calcium Level 8.8 MG/DL 8.8 MG/DL 8.3 MG/DL Magnesium Level 1.9 MG/DL 2.0 MG/DL Alkaline Phosphatase 117 U/L Aspartate Amino Transf (AST/SGOT) 23 U/L Alanine Aminotransferase (ALT/SGPT) 28 U/L Total Bilirubin 0.8 MG/DL Sodium Level 139 MEQ/L 141 MEQ/L 143 MEQ/L Potassium Level 3.0 MEQ/L 3.9 MEQ/L 4.1 MEQ/L Chloride Level 100 MEQ/L 102 MEQ/L 106 MEQ/L Carbon Dioxide Level 29.3 MEQ/L 27.1 MEQ/L 27.9 MEQ/L Anion Gap 10 MEQ/L 12 MEQ/L 9 MEQ/L Estimat Glomerular Filtration Rate 64 ML/MIN 55 ML/MIN 41 ML/MIN Phosphorus Level 2.8 MG/DL 2.9 MG/DL B-Type Natriuretic Peptide 398 PG/ML Total Creatine Kinase 29 U/L 18 U/L Troponin I 0.13 NG/ML 0.14 NG/ML Test 06/28/17 04:35 Blood Urea Nitrogen 52 MG/DL Creatinine 1.39 MG/DL Random Glucose 126 MG/DL Total Protein 6.1 GM/DL Albumin 3.0 GM/DL Calcium Level 8.3 MG/DL Magnesium Level 1.9 MG/DL Alkaline Phosphatase 82 U/L Aspartate Amino Transf (AST/SGOT) 18 U/L Alanine Aminotransferase (ALT/SGPT) 21 U/L Total Bilirubin 1.1 MG/DL Sodium Level 144 MEQ/L Potassium Level 3.5 MEQ/L Chloride Level 105 MEQ/L Carbon Dioxide Level 26.1 MEQ/L Anion Gap 13 MEQ/L Estimat Glomerular Filtration Rate 36 ML/MIN Total Creatine Kinase 22 U/L Troponin I 0.14 NG/ML Microbiology Date/Time Source Procedure Growth Status 06/26/17 21:38 Blood Peripheral Aerobic Blood Culture - Preliminary NO GROWTH IN 2 DAYS Resulted 06/26/17 21:38 Blood Peripheral Anaerobic Blood Culture - Preliminary NO GROWTH IN 2 DAYS Resulted 06/26/17 21:38 Blood Peripheral Aerobic Blood Culture - Preliminary NO GROWTH IN 2 DAYS Resulted 06/26/17 21:38 Blood Peripheral Anaerobic Blood Culture - Preliminary NO GROWTH IN 2 DAYS Resulted 06/28/17 09:00 Fluid Pleural Fluid Fungal Smear Pending Received 06/28/17 09:00 Fluid Pleural Fluid Fungal Culture Pending Received 06/28/17 09:00 Fluid Pleural Fluid Acid Fast Stain Pending Received 06/28/17 09:00 Fluid Pleural Fluid Mycobacterial Culture Pending Received 06/28/17 09:00 Fluid Pleural Fluid Gram Stain Pending Received 06/28/17 09:00 Fluid Pleural Fluid Body Fluid Culture Pending Received 06/27/17 15:03 Sputum Expectorated Sputum Gram Stain - Final Resulted 06/27/17 15:03 Sputum Expectorated Sputum Sputum Culture - Preliminary HEAVY GROWTH NORMAL RESPIRATORY TRUDY... Resulted 06/27/17 01:30 Urine Catheterized Urine Urine Culture - Preliminary NO GROWTH IN 24 HOURS. Resulted Imaging Last Impressions Chest X-Ray 06/16/17 0400 Signed Impressions: Service Date/Time: Friday, June 16, 2017 04:10 - CONCLUSION: Worsening aeration in the left lung. Interval removal or dislodgment of right pigtail thoracostomy tube Alvin Walls MD Tunnelled Chest Tube Removal 06/13/17 0000 Signed Impressions: Service Date/Time: Tuesday, June 13, 2017 00:00 - CONCLUSION: Uncomplicated chest tube removal. Joselo Jennings MD Upper Extremity Ultrasound 06/07/17 Signed Impressions: Service Date/Time: Wednesday, June 07, 2017 18:21 - CONCLUSION: 1. Limited exam but no deep venous thrombosis is identified bilaterally. Jamie Corrales MD Lower Extremity Ultrasound 06/07/17 Signed Impressions: Service Date/Time: Wednesday, June 07, 2017 17:57 - CONCLUSION: 1. Positive bilateral lower extremity deep venous thrombosis, nonocclusive as above. Jamie Corrales MD Head CT 06/07/17 Signed Impressions: Service Date/Time: Wednesday, June 07, 2017 17:01 - CONCLUSION: 1. No acute intracranial abnormality. 2. Extensive subcutaneous air tracking up from the chest. Luc Cain Jr., MD Cervical Spine CT 06/07/17 Signed Impressions: Service Date/Time: Wednesday, June 07, 2017 17:01 - CONCLUSION: 1. Extensive subcutaneous emphysema. 2. Tiny left apical pneumothorax. 3. Diffuse mild degenerative changes without central canal stenosis. Multilevel neural foraminal narrowing. 4. Prevertebral soft tissues obscured by an endotracheal tube and nasogastric tube. Luc Cain Jr., MD Chest Tube Insertion 06/05/17 Signed Impressions: Service Date/Time: May 09:15 - CONCLUSION: Uncomplicated chest tube placement as above. Maxwell Aldana MD Chest CT 06/05/17 Signed Impressions: Service Date/Time: May 08:47 - CONCLUSION: 1. Moderate left-sided hemothorax with associated left lower lobe consolidation which may reflect a combination of compressive atelectasis, aspiration, and potentially lung infarction given recent pulmonary artery embolization. 2. Trace right apical pneumothorax with large bore chest tube in the major fissure and smallbore chest tube in the soft tissues. Significant subcutaneous emphysema extending to the cervicothoracic junction bilaterally. 3. Airspace consolidation in the right lower lobe posteriorly may reflect aspiration. Maxwell Aldana MD Embolization 06/03/17 Signed Impressions: Service Date/Time: Saturday, June 03, 2017 00:00 - CONCLUSION: Left pulmonary artery rupture with successful coil embolization of a lower lobe branch vessel as above. Joselo Jennings MD Abdomen X-Ray 06/03/17 Signed Impressions: Service Date/Time: Saturday, June 03, 2017 18:04 - CONCLUSION: Tip of the NG tube appears to be coiled in the stomach. Savana Valdovinos MD Physical Exam GENERAL: This is a well-nourished, well-developed patient, in no apparent distress. SKIN: No rashes, ecchymoses or lesions. Cool and dry. HEAD: Atraumatic. Normocephalic. No temporal or scalp tenderness. EYES: Pupils equal round and reactive. Extraocular motions intact. No scleral icterus. No injection or drainage. ENT: Intubated. NECK: Trachea midline. Supple, nontender, no meningeal signs. CARDIOVASCULAR: Murmur appreciated. RESPIRATORY: Clear to auscultation. Breath sounds diminished slightly in the bases. GASTROINTESTINAL: Abdomen soft, non-tender, nondistended. MUSCULOSKELETAL: Extremities without clubbing, cyanosis, or edema. No joint tenderness, effusion, or edema noted. No calf tenderness. Negative Homans sign bilaterally. NEUROLOGICAL: Awake and alert. Nonfocal. Follows commands moves all 4 extremities. Psych cooperative IV line sites with no evidence of infection. Assessment & Plan Remarks New Sepsis(fever, tachycardia, source pneumonia,bacteremia) MRSA pneumonia in recent past Now concern for aspiration pneumonitis. Shayla albicans UTI, likely catheter associated: treated recently. Status post cardiac catheterization with ruptured pulmonary artery as complication Atrial fibrillation Pacemaker in place Recommendations Continue cefepime IV (covers PSAE) Continue Teflaro IV (ASP: empiric for MRSA bacteremia and pneumonia pending cultures) Continue Levaquin. Follow cultures Follow clinically Discussed with RN as well as patient son and spouse in the room. d/w and cardiology: recommend waiting another day prior to Balloon Angioplasty as blood cultures are still pending. Dolores Segura MD Jun 28, 2017 14:05
[2017-06-28] MEDS: methylPREDNISolone SOD SUCC 40 MG/1 ML VIAL IV PUSH SCH ×2 (14:07→20:42)
[2017-06-28 15:50] LABS: AUTOMATED NEUTROPHIL # 7.6 TH/MM3 (1.8-7.7); HEMATOCRIT 21.2 % (35.0-46.0); LYMPH % 4.9 % (9.0-44.0); LYMPHOCYTE # 0.4 TH/MM3 (1.0-4.8); MEAN CELL VOLUME 87.7 FL (80.0-100.0); MEAN CORPUSCULAR HEMOGLOBIN 29.7 PG (27.0-34.0); MEAN CORPUSCULAR HGB CONC 33.8 % (32.0-36.0); NEUT % 90.1 % (16.0-70.0); PLATELET COUNT 43 TH/MM3 (150-450); RED BLOOD COUNT 2.41 MIL/MM3 (4.00-5.30); RED CELL DISTRIBUTION WIDTH 16.3 % (11.6-17.2); WHITE BLOOD COUNT 8.4 TH/MM3 (4.0-11.0)
[2017-06-28 15:51] LABS: HEMO FLAGS DIFF FINAL
[2017-06-28 15:57] LABS: INTERNATIONAL NORMALIZED RATIO 1.7 RATIO; PROTHROMBIN TIME - PATIENT 19.3 SEC (9.8-11.6)
[2017-06-28 16:21] LABS: ANION GAP 9 MEQ/L (5-15); AST (GOT) 26 U/L (15-37); BICARBONATE 27.6 MEQ/L (21.0-32.0); BLOOD UREA NITROGEN 54 MG/DL (7-18); CHLORIDE 106 MEQ/L (98-107); GLOMERULAR FILTRATION RATE 35 ML/MIN (>89); POTASSIUM 3.9 MEQ/L (3.5-5.1); SODIUM (NA) 143 MEQ/L (136-145)
[2017-06-28 16:22] LABS: ALT (GPT) 23 U/L (10-53)
[2017-06-28 16:26] LABS: ALKALINE PHOSPHATASE 72 U/L (45-117); TOTAL BILIRUBIN ADULT 1.2 MG/DL (0.2-1.0)
[2017-06-28 17:31] LABS: DIGOXIN 2.7 NG/ML (0.8-2.0)
[2017-06-28] MEDS: LACTATED RINGER'S 1000 ML INJ 1,000 ML IV SCH (17:57)
[2017-06-29] VITALS (13 sets, daily range): BP systolic 125–169; BP diastolic 49–83; PULSE 68–98; RESP 0–20; TEMP 97.9–98.6; O2SAT 97–99
[2017-06-29] MEDS: CEFEPIME INJ 2,000 MG in SODIUM CHLORIDE 0.9% INJ 100 ML IV SCH (00:08)
[2017-06-29] MEDS: CEFTAROLINE INJ 600 MG in SODIUM CHLORIDE 0.9% INJ 100 ML IV SCH (00:52)
[2017-06-29] MEDS: hydrALAZINE HCL 20 MG/ML VIAL IV PUSH PRN ×5 (00:52→22:48)
[2017-06-29] MEDS: PROPOFOL 1000 MG/100 ML INJ 100 ML IV PRN ×2 (01:44→09:21)
[2017-06-29] MEDS: RESP: ALBUTEROL 2.5 MG/IPRATROPIUM 0.5 MG NEB (SCH) NEB ×2 (04:36→09:06)
[2017-06-29 04:49] LABS: AUTOMATED NEUTROPHIL # 7.3 TH/MM3 (1.8-7.7); BASOPHIL % 0.1 % (0.0-2.0); HEMATOCRIT 30.1 % (35.0-46.0); LYMPH % 2.7 % (9.0-44.0); LYMPHOCYTE # 0.2 TH/MM3 (1.0-4.8); MEAN CELL VOLUME 84.7 FL (80.0-100.0); MEAN CORPUSCULAR HEMOGLOBIN 29.4 PG (27.0-34.0); MEAN CORPUSCULAR HGB CONC 34.8 % (32.0-36.0); MONO % 3.7 % (0.0-8.0); NEUT % 93.5 % (16.0-70.0); PLATELET COUNT 34 TH/MM3 (150-450); RED BLOOD COUNT 3.55 MIL/MM3 (4.00-5.30); RED CELL DISTRIBUTION WIDTH 17.3 % (11.6-17.2); WHITE BLOOD COUNT 7.8 TH/MM3 (4.0-11.0)
[2017-06-29 04:55] LABS: HEMO FLAGS DIFF FINAL
[2017-06-29] MEDS: ALBUMIN 25% INJ 100 ML IV SCH ×2 (05:20→17:18)
[2017-06-29] MEDS: methylPREDNISolone SOD SUCC 40 MG/1 ML VIAL IV PUSH SCH ×3 (05:21→21:11)
[2017-06-29] MEDS: METOPROLOL TARTRATE 25 MG TAB PO SCH ×3 (05:21→21:10)
[2017-06-29] MEDS: METOCLOPRAMIDE HCL 10 MG/2 ML VIAL IV PUSH SCH ×3 (05:21→21:10)
[2017-06-29] MEDS: LEVOTHYROXINE SODIUM 50 MCG TAB PO SCH (05:21)
[2017-06-29 05:25] LABS: ALT (GPT) 23 U/L (10-53); ANION GAP 8 MEQ/L (5-15); AST (GOT) 21 U/L (15-37); BICARBONATE 28.8 MEQ/L (21.0-32.0); BLOOD UREA NITROGEN 61 MG/DL (7-18); CHLORIDE 106 MEQ/L (98-107); GLOMERULAR FILTRATION RATE 36 ML/MIN (>89); MAGNESIUM 2.2 MG/DL (1.5-2.5); POTASSIUM 3.4 MEQ/L (3.5-5.1); SODIUM (NA) 143 MEQ/L (136-145)
[2017-06-29 05:27] LABS: ALKALINE PHOSPHATASE 75 U/L (45-117); LDH SERUM 201 U/L (84-246); TOTAL BILIRUBIN ADULT 1.9 MG/DL (0.2-1.0)
[2017-06-29 05:29] LABS: INTERNATIONAL NORMALIZED RATIO 1.7 RATIO; PROTHROMBIN TIME - PATIENT 19.4 SEC (9.8-11.6)
[2017-06-29] MEDS: POTASSIUM CHLOR 20 MEQ PREMIX 100 ML IV PRN (05:35)
--- NOTE | 2017-06-29 05:36 | RADRPT ---
EXAM DATE/TIME: 06/29/2017 04:52 [facility] COMPARISON: ANGIOGRAM, PULMONARY, LEFT, June 03, 2017, 0:00. TRANSCATH IV OCCLUSSION, June 03, 2017, 0:00. CHEST SINGLE AP, June 28, 2017, 9:18. INDICATIONS : Evaluate for Pnuemonia, Respiratory failure MEDICAL HISTORY : Hypercholesterolemia. Hypothyroidism. Congestive heart failure. SURGICAL HISTORY : Tonsillectomy. Pacemaker. ventral hernia repair, Right thoracentesis ENCOUNTER: Subsequent ACUITY: 1 month PAIN SCORE: Non-responsive. LOCATION: Bilateral chest FINDINGS: The cardiac silhouette is enlarged in transverse diameter. Support lines and tubes are in satisfactor y position. There is left lower lobe atelectasis versus pneumonia. Small bilateral pleural effusions are identified. CONCLUSION: 1. Left lower lobe atelectasis versus pneumonia. There has been no significant change when compared t o the prior exam. 2. Small bilateral effusions Shawn Perez MD on June 29, 2017 at 5:34 Board Certified Radiologist. This report was verified electronically.
--- NOTE | 2017-06-29 07:34 | MB ---
cc: KEVAN RIZZO DATE OF CONSULTATION: June 28, 2017 REASON FOR CONSULTATION Patient with a history of ITP who is currently acutely ill. She has progressively worsening thrombocytopenia. HISTORY OF PRESENT ILLNESS This is an 89-year-old female with history of severe aortic stenosis who has undergone left and right heart catheterization for her TAVR evaluation. After right heart cath, she developed acute massive hemoptysis with shock secondary to acute rupture of pulmonary artery. She was intubated. She became hypotensive and started on dopamine and Shantanu-Synephrine. Levophed was also added. She was a given blood product support with three units of packed red blood cells, two units of FFP, and one unit of platelets. She also developed a V-tach and V-fib and received brief CPR. She was DC cardioverted x1 and returned to spontaneous circulation and sinus rhythm. A PARVIN was performed which showed vigorous LV contraction but the cavity was empty. She received continuous massive fluid resuscitation with multiple crystalloid boluses bicarbonate and calcium. She underwent cardiac cath which identified bleeding from a small branch of the left pulmonary artery. Six coils were placed in the left lower artery. The patient was subsequently extubated. However, her respiratory status declined yesterday. She was on BiPap. She was again intubated due to worsening hypoxemic respiratory failure. She has a right-sided pleural effusion and there are plans for right-sided thoracentesis. There are plans for valvuloplasty on Friday. The patient is septic and she is on broad spectrum antibiotic including cefepime and vancomycin. The patient is currently intubated and sedated and is unresponsive. No family members are present. I am being told that the patient has a past medical history of ITP and she sees a decal applier in [place]. She was being treated with Promacta. It appears that she was refractory to steroid therapy. It is unclear whether she has been treated with Rituxan or IVIG therapy in the past. She is currently not bleeding. REVIEW OF SYSTEMS Unable to be obtained due to the patient's mental status. PAST MEDICAL HISTORY Aortic stenosis, ITP. PAST SURGICAL HISTORY Unable to obtained due to patient mental status. FAMILY HISTORY: Unknown. SOCIAL HISTORY: Unknown. No family members were present. The patient is intubated and sedated. MEDICATIONS: 1. Protonix 40 milligrams IV q12 hours. 2. Hydralazine 20 milligrams IV q4 hours p.r.n. 3. Solu-Medrol 40 milligrams IV q8 hours. 4. Propofol drip. 5. Cefepime 2 grams IV q12 hours. 6. Diltiazem GTT. 7. Micafungin 100 milligrams IV q24 hours. 8. DuoNeb q6 hours p.r.n. 9. Melatonin 5 milligrams p.o. q hs p.r.n. 10. MiraLax p.r.n. 11. Metoclopramide p.r.n. 12. Sliding scale insulin. 13. Promacta 25 milligrams p.o. daily. 14. Metoprolol 25 milligrams p.o. q8 hours. 15. Docusate. PHYSICAL EXAMINATION Vital signs: Blood pressure is 169/58, pulse is in the 80s, temperature is 97.9, O2 sats are 100% and she is currently intubated on mechanical ventilation. FIO2 is 40. General: Critically ill patient. HEENT: Pupils are equal, round, reactive to light. EOMI. No oral thrush. ET tube in place. Chest: Bilateral coarse sounds. Cardiac: S1-S2, regular rate and rhythm. Abdomen: Soft. Bowel sounds are absent. Extremities: 1+ bilateral edema. Skin: No large bruises or petechiae. Lymph node exam. No lymphadenopathy on exam. Neuro: Unable to assess, she is currently intubated and sedated. LABORATORY DATA WBC is 8.4, hemoglobin is 7.2, platelet count is 43. Serum chemistries: Sodium is 143, potassium 3.9, chloride 106, CO2 27.6, BUN is 54, creatinine is 1.42, GFR 35, total bilirubin is 1.2, AST 26, ALT 23, alk phos is 72, total protein is 6, albumin is 3.2. IMAGING STUDIES Chest x-ray was reviewed and shows nasogastric tube, small bilateral pleural effusions. ASSESSMENT/PLAN This is an 89-year-old female who has a past medical history of ITP and severe aortic stenosis. She is critically ill. She is intubated and sedated. She is septic. She has been anemic and she has progressively worsening thrombocytopenia. Thrombocytopenia with a history of ITP and now has sepsis. The acute drop in platelet count is likely from acute illness, DIC, and consumption. She has been on Promacta 25 mg daily. She has also been receiving IV steroids. If this patient needs an emergent procedure, I would recommend transfusing platelets. I discussed this case with Dr. Esquivel. It is anticipated that she will undergo procedure on Friday. I would recommend giving her two units of platelets prior to procedure and running one unit of platelets during the procedure. Check daily LDH and haptoglobin. Check daily coags and fibrinogen. We could titrate Promacta but we would not be able to achieve a desirable platelet count prior to her procedure since it will take some time for the platelet count to come up. Besides, it appears that her acute drop in platelet count is likely from DIC and consumption rather than ITP. Thank you for allowing me to participate in the care of this patient. I will continue to follow this patient along. MD JUDIE Guerrero/OUMAR /3:05 AM /7:14 AM YO
[2017-06-29] MEDS: INSULIN ASPART SUPPLEMENTAL SCALE SQ SCH ×2 (08:00→20:00)
[2017-06-29] MEDS: CHLORHEXIDINE 0.12% (ORAL KIT) 15 ML CUP MT SCH ×3 (08:00→20:00)
--- NOTE | 2017-06-29 08:53 | PD.ONC.PN ---
Objective Data Date Time Temp Pulse Resp B/P (MAP) Pulse Ox O2 Delivery O2 Flow Rate FiO2 06/29/17 07:00 72 06/29/17 07:00 98.3 70 18 146/62 (90) 97 165/62 (96) 06/29/17 07:00 40 06/29/17 07:00 97 Mechanical Ventilator 40 06/29/17 04:37 99 40 06/29/17 03:14 98.2 70 18 98 138/50 (79) 06/29/17 03:14 71 06/29/17 03:14 40 06/29/17 03:14 98 Mechanical Ventilator 40 06/29/17 00:53 98 40 06/29/17 00:14 98.0 68 18 125/60 (81) 98 158/62 (94) 06/29/17 00:14 77 06/29/17 00:14 40 06/29/17 00:14 98 Mechanical Ventilator 40 06/28/17 21:21 99 40 06/28/17 21:05 98.1 78 18 175/67 99 06/28/17 20:46 98.7 70 18 175/65 99 06/28/17 20:23 98.7 70 18 170/63 99 06/28/17 19:53 100 40 06/28/17 19:32 40 06/28/17 19:21 98.0 68 18 155/67 (96) 98 173/61 (98) 06/28/17 19:21 97 Mechanical Ventilator 40 06/28/17 19:00 68 06/28/17 18:28 98.8 70 18 176/63 100 06/28/17 18:15 98.8 72 18 173/60 99 06/28/17 18:02 98.8 69 18 158/52 99 06/28/17 16:30 99 40 06/28/17 16:00 80 06/28/17 16:00 100 Mechanical Ventilator 40 06/28/17 16:00 97.9 80 19 100 169/58 (95) 06/28/17 14:35 98 40 06/28/17 11:30 100 100 06/28/17 11:00 97.8 78 19 158/1 (53) 99 154/56 (88) 06/28/17 11:00 100 Mechanical Ventilator 40 06/28/17 11:00 68 06/28/17 10:00 97.6 73 19 171/53 99 06/28/17 09:45 97.6 70 18 174/58 99 06/28/17 09:30 97.6 76 19 173/54 99 06/28/17 09:15 97.6 72 19 166/55 99 06/28/17 08:54 75 19 153/44 99 06/29/17 06/29/17 06/29/17 07:00 15:00 23:00 Intake Total 400 ml Output Total 1725 ml Balance -1325 ml Result Diagram: 06/29/17 0431 06/29/17 0431 Laboratory Results Laboratory Tests Test 06/28/17 09:00 06/28/17 15:00 06/29/17 04:31 Pleural Fluid pH 8.0 Pleural Fluid WBC 464 /MM3 Pleural Fluid RBC 1018 /MM3 Pleural Fluid Neutrophils 99 % Pleural Fluid Lymphocytes 1 % Pleural Fluid Total Protein 2.7 GM/DL Pleural Fluid LDH 190 U/L Pleural Fluid Glucose 123 MG/DL White Blood Count 8.4 TH/MM3 7.8 TH/MM3 Red Blood Count 2.41 MIL/MM3 3.55 MIL/MM3 Hemoglobin 7.2 GM/DL 10.5 GM/DL Hematocrit 21.2 % 30.1 % Mean Corpuscular Volume 87.7 FL 84.7 FL Mean Corpuscular Hemoglobin 29.7 PG 29.4 PG Mean Corpuscular Hemoglobin Concent 33.8 % 34.8 % Red Cell Distribution Width 16.3 % 17.3 % Platelet Count 43 TH/MM3 34 TH/MM3 Mean Platelet Volume 7.7 FL 8.1 FL Neutrophils (%) (Auto) 90.1 % 93.5 % Lymphocytes (%) (Auto) 4.9 % 2.7 % Monocytes (%) (Auto) 5.0 % 3.7 % Eosinophils (%) (Auto) 0.0 % 0.0 % Basophils (%) (Auto) 0.0 % 0.1 % Neutrophils # (Auto) 7.6 TH/MM3 7.3 TH/MM3 Lymphocytes # (Auto) 0.4 TH/MM3 0.2 TH/MM3 Monocytes # (Auto) 0.4 TH/MM3 0.3 TH/MM3 Eosinophils # (Auto) 0.0 TH/MM3 0.0 TH/MM3 Basophils # (Auto) 0.0 TH/MM3 0.0 TH/MM3 CBC Comment DIFF FINAL DIFF FINAL Differential Comment Prothrombin Time 19.3 SEC 19.4 SEC Prothromb Time International Ratio 1.7 RATIO 1.7 RATIO Blood Urea Nitrogen 54 MG/DL 61 MG/DL Creatinine 1.42 MG/DL 1.38 MG/DL Random Glucose 111 MG/DL 131 MG/DL Total Protein 6.0 GM/DL 6.1 GM/DL Albumin 3.2 GM/DL 3.3 GM/DL Calcium Level 8.5 MG/DL 8.5 MG/DL Alkaline Phosphatase 72 U/L 75 U/L Aspartate Amino Transf (AST/SGOT) 26 U/L 21 U/L Alanine Aminotransferase (ALT/SGPT) 23 U/L 23 U/L Total Bilirubin 1.2 MG/DL 1.9 MG/DL Sodium Level 143 MEQ/L 143 MEQ/L Potassium Level 3.9 MEQ/L 3.4 MEQ/L Chloride Level 106 MEQ/L 106 MEQ/L Carbon Dioxide Level 27.6 MEQ/L 28.8 MEQ/L Anion Gap 9 MEQ/L 8 MEQ/L Estimat Glomerular Filtration Rate 35 ML/MIN 36 ML/MIN Phosphorus Level 2.7 MG/DL Digoxin Level 2.7 NG/ML Haptoglobin 48 MG/DL Fibrinogen 210 mg/dL Magnesium Level 2.2 MG/DL Lactate Dehydrogenase 201 U/L Culture Results Microbiology Date/Time Source Procedure Growth Status 06/26/17 21:38 Blood Peripheral Aerobic Blood Culture - Preliminary NO GROWTH IN 2 DAYS Resulted 06/26/17 21:38 Blood Peripheral Anaerobic Blood Culture - Preliminary NO GROWTH IN 2 DAYS Resulted 06/26/17 21:38 Blood Peripheral Aerobic Blood Culture - Preliminary NO GROWTH IN 2 DAYS Resulted 06/26/17 21:38 Blood Peripheral Anaerobic Blood Culture - Preliminary NO GROWTH IN 2 DAYS Resulted 06/28/17 09:00 Fluid Pleural Fluid Fungal Smear Pending Received 06/28/17 09:00 Fluid Pleural Fluid Fungal Culture Pending Received 06/28/17 09:00 Fluid Pleural Fluid Acid Fast Stain Pending Received 06/28/17 09:00 Fluid Pleural Fluid Mycobacterial Culture Pending Received 06/28/17 09:00 Fluid Pleural Fluid Gram Stain Pending Received 06/28/17 09:00 Fluid Pleural Fluid Body Fluid Culture Pending Received 06/27/17 15:03 Sputum Expectorated Sputum Gram Stain - Final Resulted 06/27/17 15:03 Sputum Expectorated Sputum Sputum Culture - Preliminary HEAVY GROWTH NORMAL RESPIRATORY TRUDY... Resulted 06/27/17 01:30 Urine Catheterized Urine Urine Culture - Final NO GROWTH IN 48 HOURS. Complete Imaging Studies Last 24 hours Impressions Chest X-Ray 06/29/17 0600 Signed Impressions: Service Date/Time: Thursday, June 29, 2017 04:52 - CONCLUSION: 1. Left lower lobe atelectasis versus pneumonia. There has been no significant change when compared to the prior exam. 2. Small bilateral effusions Shawn Perez MD Administered Medications Medications (Trade) Dose Ordered Sig/Padmini Route PRN Reason Start Time Stop Time Status Last Admin Dose Admin Chlorhexidine Gluconate (Peridex 0.12% Liq) 15 ml BID@08,20 MT 06/03/17 20:00 06/28/17 20:00 Albuterol/ Ipratropium (Duoneb Neb) 1 ampule Q2HR NEB PRN NEB SHORTNESS OF BREATH 06/03/17 19:00 06/15/17 19:56 Metoprolol Tartrate (Lopressor Inj) 1.25 mg Q6H PRN IV PUSH SBP > 170 + HR > 100 06/04/17 19:15 06/06/17 20:29 Docusate Sodium (Colace Liq) 100 mg Q12HR PO 06/05/17 14:00 06/28/17 20:40 Potassium Bicarb/ Potassium Chloride (K-Lyte Cl Eff) 25 meq Q12HR PO 06/05/17 14:00 06/28/17 20:41 Digoxin (Lanoxin) 0.125 mg DAILY PO 06/06/17 09:00 Future Hold 06/28/17 10:09 Metoprolol Tartrate (Lopressor) 25 mg Q8HR PO 06/07/17 14:00 06/29/17 05:21 Losartan Potassium (Cozaar) 50 mg DAILY PO 06/07/17 09:00 Future Hold 06/27/17 08:34 Hydralazine HCl (Apresoline Inj) 20 mg Q4H PRN IV PUSH SYS BP GREATER THAN 160 MMHG 06/07/17 08:00 06/29/17 00:52 Levothyroxine Sodium (Synthroid) 50 mcg DAILY@0600 PO 06/07/17 08:00 06/29/17 05:21 Eltrombopag (Promacta) 25 mg DAILY@1000 PO 06/08/17 10:00 06/28/17 10:00 Insulin Aspart (NovoLOG SUPPLEMENTAL SCALE) 1 BID@0800,2000 SQ 06/08/17 20:00 06/15/17 08:43 Nystatin (Mycostatin Liq) 5 ml QID SWISH-SWAL 06/12/17 13:00 06/28/17 20:41 Budesonide (Pulmicort Respule Neb) 0.5 mg Q12HR NEB NEB 06/16/17 11:15 06/28/17 21:21 Acetaminophen (Tylenol 650 Mg/ 20 ml Liq) 650 mg Q6H PRN PO PAIN 1-10/ FEVER > 101.5 06/18/17 06:30 06/26/17 05:11 Ondansetron HCl (Zofran Inj) 4 mg Q6H PRN IV PUSH NAUSEA OR VOMITING 06/22/17 19:30 06/23/17 08:40 Diltiazem HCl (Cardizem) 90 mg Q6HR PO 06/23/17 12:00 Future Hold 06/27/17 12:14 Guaifenesin (Mucinex Er) 600 mg BID PO 06/23/17 10:15 06/28/17 20:40 Levofloxacin (Levaquin) 250 mg Q24H PO 06/24/17 09:00 Future Hold 06/26/17 09:29 Metoclopramide HCl (Reglan Inj) 5 mg Q8HR IV PUSH 06/23/17 17:45 06/29/17 05:21 Enalaprilat (Vasotec Inj) 1.25 mg Q6H PRN IV PUSH SBP>160, DBP>90 06/25/17 08:45 06/28/17 16:53 Warfarin Sodium (Coumadin) 2 mg DAILY@1600 PO 06/25/17 16:00 Future Hold 06/25/17 16:00 Polyethylene Glycol (Miralax) 17 gm DAILY PO 06/25/17 09:45 06/28/17 10:07 Albuterol/ Ipratropium (Duoneb Neb) 1 ampule Q6HR NEB NEB 06/26/17 22:00 06/29/17 04:36 Albumin Human 100 ml @ 60 mls/hr Q12H IV 06/26/17 18:00 06/29/17 05:20 Micafungin Sodium 100 mg/Sodium Chloride 100 ml @ 100 mls/hr Q24H IV 06/27/17 09:00 06/28/17 10:03 Cefepime HCl 2000 mg/Sodium Chloride 100 ml @ 200 mls/hr Q12H IV 06/28/17 00:00 Future hold 06/29/17 00:08 Lactated Ringer's 1,000 ml @ 50 mls/hr Q20H IV 06/27/17 18:30 06/28/17 17:57 Methylprednisolone Sodium Succinate (SoluMEDROL INJ) 40 mg Q8HR IV PUSH 06/28/17 14:00 06/29/17 05:21 Propofol 100 ml @ 1.59 mls/hr TITRATE PRN IV SEDATION 06/28/17 10:00 06/29/17 01:44 Potassium Chloride 100 ml @ 50 mls/hr Q2H PRN IV For Potassium 2.8 - 3.2 mEq/L 06/28/17 11:00 06/28/17 12:32 Potassium Chloride 100 ml @ 50 mls/hr Q2H PRN IV For Potassium 3.3 - 3.5 mEq/L 06/28/17 11:00 06/29/17 05:35 Ceftaroline Fosamil 600 mg/ Sodium Chloride 100 ml @ 100 mls/hr Q12H IV 06/28/17 13:00 06/29/17 00:52 Pantoprazole Sodium (Protonix Inj) 40 mg Q12H IV PUSH 06/28/17 21:00 06/28/17 20:41 Objective Remarks GENERAL: Well-nourished, well-developed patient. SKIN: Warm and dry. HEAD: Normocephalic. EYES: No scleral icterus. No injection or drainage. NECK: Supple, trachea midline. No JVD or lymphadenopathy. LYMPHATIC: No adenopathy. CARDIOVASCULAR: Regular rate and rhythm without murmurs. RESPIRATORY: Breath sounds equal bilaterally. No accessory muscle use. GASTROINTESTINAL: Abdomen soft, non-tender, nondistended. EXTREMITIES: No cyanosis, or edema. MUSCULOSKELETAL: Adequate muscle tone. NEUROLOGICAL: No obvious focal deficit. Awake, alert, and oriented x3. PSYCHIATRIC: Appropriate mood and affect; insight and judgment normal. Lucius Ortega MD Jun 29, 2017 08:53
[2017-06-29] MEDS: NYSTATIN SUSP 500,000 U/5 ML CUP SWISH-SWAL SCH ×4 (09:00→21:00)
[2017-06-29] MEDS: RESP: BUDESONIDE 0.5 MG/2 ML NEB NEB SCH ×2 (09:09→20:46)
[2017-06-29] MEDS ORDERED: CEFTAROLINE INJ 300 MG in SODIUM CHLORIDE 0.9% INJ 100 ML IV SCH (09:15)
--- NOTE | 2017-06-29 09:24 | HHI.CCPN ---
Subjective Remarks/Hospital Course I was emergently called to laborer driver by Dr. Corrales. Ms. Mahoney who is 89 yo female with history of severe aortic stenosis was undergoing left and right heart catheter for TAVR evaluation. With right heart catheterization patient developed acute massive hemoptysis with shock secondary to acute rupture of pulmonary artery. Patient was intubated by Dr. Potter and ETT was advance to Right lung for selective right lung ventilation due to massive hemorrhage from Left lung. On my arrival to laborer driver, patient was rapidly dropping blood pressure. Dopamine was already started. I ordered Shantanu-Synephrine, at 300 mcg/ m in an attempt to increase MAP and also increase the pulmonary vasoconstriction. Levophed was also added to maintain blood pressure and rapidly titrated up. Emergency release blood initially 3 units was ordered stat along with 2 units of FFP, 1 unit of platelet. I also emergently contacted Dr. Vásquez was in the office. (Dr. Bedoya the on-call CT surgeon was operating). While on Levophed Shantanu-Synephrine and dopamine, patient developed coarse V. fib/V. tach, received brief CPR, and was DC cardioverted 1 with return of spontaneous circulation and sinus rhythm. I discussed with Dr. Corrales and anesthesiologist, I also contacted Dr. Josue from invasive radiology.Dr. Josue immediately arrived to the laborer driver. Dr. Abdelrahman francis performed PARVIN which showed vigorous LV contraction but cavity was empty. Received Continuous massive fluid resuscitation with multiple crystalloid boluses, bicarbonate and calcium. Blood arrived and initially 3 units of PRBC, 2 units of 1 unit of platelets was given with calcium total 3 g given after blood transfusion. Because of persistent hypotension, additional 2 units of PRBC was given. While I resuscitated the patient, Dr. Corrales and Dr. Jennings performed right heart cath, identified bleeding of a small branch in the left pulmonary artery. They put put in 6 coils in the lower left lower pulmonary artery followed with Gelfoam closing the perforation. 06/04: Emergency chest 2 yesterday for right pneumothorax with hypotension and hypoxia. Remains intubated sedated and on Levophed. FiO2 remains at 100%, Sat improving to 94-95 %. UO adequate overnight. 2-D echo on my review normal LV and RV function, no PFO on bubble study 06/05: Patient is in atrial fibrillation currently on Cardene infusion for blood pressure control. Chest x-ray shows percutaneous emphysema and small apical pneumothorax. Remains on 80% FiO2. I discussed with interventional radiology. We will attempt CT-guided repositioning of the pigtail catheter and possibly upgrading to a larger tube. Urine output adequate 750 mL in 24 hours 06/06: Currently remains in A. fib with rate controlled, hypertensive on Cardizem drip. Oxygen saturation has improved FiO2 now to 40% with saturation 97%. Urine output excellent with Lasix 4.5 L in 24 hours. Chest x-ray today shows 2.5 cm bilateral apical pneumothorax, also left side has 1.2 cm lateral pneumothorax 06/07: Intubated, on low dose propofol for ventilator synchrony. FiO2 40% oxygen saturation 99%. Chest x-ray and labs pending urine output 2.7 L. 3 chest tubes with no air leak. If neuro exam not improving off sedation will check CT of the head. Currently on propofol will private branch exchange service advisor to Precedex to initiate weaning trials. On weaning doses of inhaled Flolan currently on 30, 000 ng 06/08: Remains intubated, mild sedation with Precedex. Overnight FiO2 increased to 65% for hypoxia. CXR left more than right consolidation of lower lobes. Sputum positive for MRSA on vancomycin. Bilateral lower extremity US studies yesterday showed DVT, initiated on IV heparin. Currently therapeutic on heparin. No evidence of pulmonary hemorrhage. Neuro exam is improving weekly follows commands all 4 extremities 06/09: remains intubated. failed CPAP yesterday. on Cleviprex and precedex. fio2 back to 40%. CXR improved aeration with the exception of known LLL. FC x 4. 06/10: failed SBT again for apnea. but much more awake. denies pain. ROS negative. off cleviprex. new air leak in chest tube. will get chest xray to re- eval. 06/11: Warm, well perfused. Alert, cooperative. Communicates with head nod, hand gestures. Comfortable respiratory pattern and acceptable excursions.Air leaks will seal when off positive pressure ventilation. FiO2 to 0.80 last night briefly; now 0.40. I'll come back later today and see if I can get her extubated. 06/12: Required re-intubation for hypoxemic respiratory failure last evening. She is now warm with well perfused fingers and toes. Low dose levophed not hampering peripheral perfusion. Mild prerenal azotemia. CXR with diffuse infiltrates as before. WBC 32,00, afebrile. Must assume colonized lungs at least. Antibiotic coverage is appropriate. Reculture sputum, urine. Progress to weaning trials daily.Hemodynamics appear excellent, rate a minor problem pretty well controlled. Continue Vanc. Stop pip/roxi, start cefepime. Narrow after cultures. Change CVLs, draw blood cultures. 06/13: Persistent leukocytosis, Tmax 100.2. O2 diffusion acceptable on positive pressure ventilation. Sputum culture pending. Remains warm and well perfused. Continue daily spontaneous breathing trials. 06/14: Bronch and BAL this morning by Dr. Muñoz. Gas exchange remains acceptable. Continue SBTs. 06/15: Looks great on SBTs/CPAP. She would benefit from a temporary tracheostomy. But she will eventually be off and extubated for good. C&S pending from BAL. Continue present abx regimen - discussed with Dr. Segura. 06/16: Awake alert following commands on vent. Currently on Precedex 0.5 g per KG per hour. Still has large amount of ETT secretions, but improving. R pigtail dislodged with turning, no pneumo on repeat CXR 06/17: Awake alert on low dose Precedex. Tolerated CPAP yesterday. Not extubated yesterday due copious bloody secretions. The chest x-ray shows some interval improvement and secretions slightly improved. Will proceed with SBT and possible extubation 06/18: Extubated yesterday tolerating very well. Coughing up sputum, cough seems adequate. Slight increase in WBC to 19.1. Received single dose of Decadron yesterday. Overall doing well communicating, no fever 06/19: WBC count slightly improved 17.9. Otherwise breathing comfortably. Single episode of delirium overnight. Will remove Payne today and also remove right chest tube 06/20: Up in chair, labs pending. CXR showing slight increase in L effusion. Will check bedside US. [facility] Re consult Note: 06/26/17: Critical care reconsulted for acute desaturation. After patient was sat on the side of the bed and when put back in the bed she acutely desaturated to mid 70s. Placed on nonrebreather and I was asked to evaluate the patient by Dr. Corrales. On my exam patient is in moderate distress, diffuse crackles on the chest. Stat chest x-ray shows acute change from chest x-ray 2 days ago. Bilateral diffuse interstitial and alveolar infiltrates with bilateral pleural effusions consistent with CHF. IV 20 mg Lasix given stat. Payne reinserted. Stat Bumex infusion started and transfer to ICU stat and placed on BiPAP 12 over 5. At this time does not need reintubation but this is a possibility 06/27: Remains on BiPAP overnight, slightly tachypneic but oxygen saturation 97 % on 55% FiO2. Chest x-ray shows improved bilateral infiltrate indicating improving CHF. After receiving additional Lasix and Bumex infusion urine output approximately 800 ml in 24 hours. Bumex infusion was increased to 1 mg per hour. UA shows evidence of UTI. Platelet count dropped to 57, most likely secondary to sepsis. DC Zyvox start vancomycin reconsult ID. Cefepime was added yesterday 06/28: Intubated yesterday noon due to acute worsening of hypoxemic respiratory failure. Remains intubated sedated critically ill though stabilizing. WBC count has normalized to 9.9 but platelet count further decreased to 32. I will increase Solu-Medrol 40 every 8 hours and get hematology consult. BUN/ creatinine 50/1.39, slightly worsened but urine output remains excellent a terminal overnight. Plan for right thoracentesis today after FFP and platelet transfusion. Currently only on 2 mcg/m of Levophed. 2 D Echo yesterday showed increased mean gradient. May need BAV as bridge to TAVR (secondary to flash pulmonary edema and heart failure) 06/29: Patient remains intubated sedated. Remains critically ill. Chest x-ray remained stable to slightly increased pulmonary vascular congestion. Platelet count has further dropped 34, Hb stable at 10.5. Hematology is following on IV steroids and Promacta. Dr. Ortega considering IVIG. With low platelet, Coumadin is on hold. Will start IV Heparin for LE DVT (US 06/07/17) when cleared by Hematology INR is 1.[address] Corrales to decide on BAV. UO 2.6L in 24 hours Objective Vital Signs Date Time Temp Pulse Resp B/P (MAP) Pulse Ox O2 Delivery O2 Flow Rate FiO2 06/29/17 07:00 72 06/29/17 07:00 98.3 18 146/62 (90) 97 165/62 (96) 06/29/17 07:00 40 06/29/17 07:00 Mechanical Ventilator 06/27/17 11:00 15.00 Intake and Output 06/29/17 06/29/17 06/30/17 08:00 16:00 00:00 Intake Total 400 ml Output Total 1725 ml Balance -1325 ml Result Diagram: 06/29/17 0431 06/29/17 0431 Other Results Microbiology Date/Time Source Procedure Growth Status 06/27/17 01:30 Urine Catheterized Urine Urine Culture - Final NO GROWTH IN 48 HOURS. Complete Objective Remarks GENERAL: Lying in bed intubated sedated. Off pressors, sedated with Propofol SKIN: Skin/dry. ENT: Oral cavity is moist. Orotracheally intubated. NECK: Trachea midline. Supple. Positive JVD CARDIOVASCULAR: Remains in atrial fibrillation rate controlled now. Systolic murmur over apex and LSB. Hypertensive RESPIRATORY: Air entry equally diminished with bilateral crackles, improving, few scattered wheezes. GASTROINTESTINAL: Abdomen Soft, no guarding. BS active. MUSCULOSKELETAL: Limbs well perfused. UE edematous NEUROLOGICAL: Intubated heavily sedated with Versed. Moves extremities, not following commands while on sedation Date of Insertion: Jun 27, 2017 Side: Right Location: Internal, Jugular A/P Assessment and Plan Assessment: 89yF with severe aortic stenosis, admitted to ICU after RHC complicated by Pulmonary Artery rupture, pneumothorax secondary to barotrauma, MRSA healthcare associated pneumonia. Now placed back in ICU with acute hypoxic respiratory failure, from flash pulmonary edema due to diastolic CHF and also with sepsis NEURO: - Propofol for sedation and ventilator synchrony, start daily sedation vacation - Holding home sertraline. Tylenol PRN - Initial CT of the head and C-spine negative for acute injury RESP: Acute hypoxemic respiratory failure Pulmonary edema/pleural effusions s/p Left lower pulmonary artery rupture with massive hemorrhage 06/03/17 MRSA pneumonia Previous Large Left hemothorax s/p IR chest tube placement, residual L pneumo after evacuation Previous Bilateral apical pneumothorax Bilateral lower extremity DVT - Transferred to ICU 06/26/17 initiated on BiPAP 12. Intubated 06/27/17 for worsening hypoxemic respiratory failure - Continue ACV, FiO2 down to 40% PEEP 8. Start daily SBT without extubation. ( No extubation prior to BAV) - Scheduled DuoNeb every 6 hours and when necessary. Continue INH Budesonide - Chest x-ray 06/26 shows extensive bilateral interstitial and alveolar infiltrates with bilateral pleural effusions consistent with acute CHF exacerbation - CXR 06/27 interval improvement in pulmonary edema - s/p coil and Gelfoam closure of Left lower pulmonary artery (peripheral small branch) by Rhoda Corrales and Michaela (see resuscitation note on 06/03/17) - Last Extubated 06/16/17. Previously Required re-intubation 06/02 for hypoxemia - Prev Sputum with MRSA. (Was on Zyvox, Levaquin-see ID section for new ABX) - Previously s/p chest tube x2 for right pneumothorax on 06/03. New apical chest tube placed 06/06/17 - IR, placed 24 F Left chest tube 06/05 with drainage of 2 L hemothorax, residual pneumothorax present, now resolved - s/p Bronchoscopy on 06/03/17 with removal of blood predominantly from L lung, s/p repeat bronch 06/06, 06/15 - Venous duplex -bilateral lower extremity DVT. INR 1.5. Resume heparin IV when cleared by Heme CV/Heme: CHF/pulmonary edema Acute Diastolic HF exacerbation Severe Aortic Stenosis Atrial fibrillation with RVR Thrombocytopenia secondary to sepsis and ITP Bilateral lower extremity DVT History of ITP - Discussed extensively with Dr. Corrales. Echo 06/27 shows lulu with mean gradient of 42, LATIA 0.49. Heart failure is secondary to severe aortic stenosis and diastolic dysfunction - Plan for BAV in the next 1-[address] Corrales, - Diuretics on hold due to hypotension and worsening creatinine - Continue LR at 30 ML per hour. UO 2.6L in 24 hours - INR 1.5 holding Coumadin to facilitate procedures and also due to severe thrombocytopenia. Status post 2 U FFP and 1 unit of platelets to facilitate thoracentesis - Continue IV steroid for ITP, IV Solu Medrol 40 mg ever 8 hours. Promacta for ITP. Hematology Dr. Ortega following, he may consider IVIG, he is aware of LE DVT - Start IV Heparin once cleared by Hematology - Continue Cardizem PO. Continue metoprolol, increase to 50 mg by mouth every 8 hours. Home dose of digoxin - Resume Cozaar 50 mg daily - Previously Received 6 units of PRBC, 2 units of FFP and one of platelets 06/03. PARVIN normal LV contractility, volume depletion - 2D Echo 06/04 RV LV function look normal, no PFO. 2 D Echo 06/27 good LV fn, concentric LVH, sev MG 42 GI: Ileus - Nothing by mouth except meds, KUB shows improving ileus06/25, Start tube feeds with Jevity - Continue IV Reglan, GI following : - Monitor renal function closely. Payne catheter. Urine output adequate - Creat Slightly increased to 1.39, UO adequate ID: Sepsis UTI Prev MRSA pneumonia - Started on cefepime 06/26/17 for severe sepsis. Started Vanc 06/27/17. DC Zyvox due to thrombocytopenia - Micafungin added 08/27 as the patient had been on antibiotics for prolonged duration - Continue Levaquin, ID re consult with Dr. Segura. Follow-up on blood urine and sputum cultures - Prev BAL culture MRSA. ENDO: - Replace electrolytes per protocol PROPH: - No SCDs due to DVT. IV Protonix. Coumadin on hold, due to severe trauma cytopenia INR 1.5. Resume when cleared by hematology LINES: - RIJ central line placed 06/27 accidentally dislodged, new left IJ central line placed 06/28/17 Overall impression: Critically ill with acute hypoxemic respiratory from CHF exacerbation, secondary to diastolic dysfunction and severe . Will need BAV as bridge to TAVR. D/W Dr. Corrales. Complicated by persistent thrombocytopenia. Hematology following currently on IV Solu-Medrol and Promacta. May need IVIG, Dr. Ortega following CCT 35 MIN Tanika Esquivel MD Jun 29, 2017 09:24
[2017-06-29] MEDS: PANTOPRAZOLE SODIUM 40 MG VIAL IV PUSH SCH ×2 (09:30→21:14)
[2017-06-29] MEDS: CEFEPIME 1000 MG/NS 100 ML IV SCH ×4 (09:30→21:00)
[2017-06-29] MEDS: LOSARTAN 50 MG TAB PO SCH (09:31)
[2017-06-29] MEDS: DOCUSATE SODIUM 100 MG/10 ML UDC PO SCH ×2 (09:31→21:00)
[2017-06-29] MEDS: POTASSIUM CHLORIDE 25 MEQ EFFERVESCENT TAB PO SCH ×2 (09:31→21:14)
[2017-06-29] MEDS: guaiFENesin E.R. 600 MG TAB PO SCH ×2 (09:31→21:00)
[2017-06-29] MEDS: POLYETHYLENE GLYCOL 17 GM PKG PO SCH (09:31)
[2017-06-29] MEDS: ELTROMBOPAG 50 MG TAB PO SCH (10:12)
[2017-06-29] MEDS: LACTATED RINGER'S 1000 ML INJ 1,000 ML IV SCH (12:08)
--- NOTE | 2017-06-29 14:44 | PD.ONC.PN ---
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 [place] They are considering a possible transition from aggressive care to comfort measures and are awaiting to discuss with the shrimping boat captain Objective Data Date Time Temp Pulse Resp B/P (MAP) Pulse Ox O2 Delivery O2 Flow Rate FiO2 06/29/17 11:49 40 06/29/17 11:00 98.4 72 14 128/58 (81) 99 137/49 (78) 06/29/17 11:00 99 Mechanical Ventilator 40 06/29/17 11:00 40 06/29/17 11:00 74 06/29/17 09:09 97 40 06/29/17 07:00 72 06/29/17 07:00 98.3 70 18 146/62 (90) 97 165/62 (96) 06/29/17 07:00 40 06/29/17 07:00 97 Mechanical Ventilator 40 06/29/17 04:37 99 40 06/29/17 03:14 98.2 70 18 98 138/50 (79) 06/29/17 03:14 71 06/29/17 03:14 40 06/29/17 03:14 98 Mechanical Ventilator 40 06/29/17 00:53 98 40 06/29/17 00:14 98.0 68 18 125/60 (81) 98 158/62 (94) 06/29/17 00:14 77 06/29/17 00:14 40 06/29/17 00:14 98 Mechanical Ventilator 40 06/28/17 21:21 99 40 06/28/17 21:05 98.1 78 18 175/67 99 06/28/17 20:46 98.7 70 18 175/65 99 06/28/17 20:23 98.7 70 18 170/63 99 06/28/17 19:53 100 40 06/28/17 19:32 40 06/28/17 19:21 98.0 68 18 155/67 (96) 98 173/61 (98) 06/28/17 19:21 97 Mechanical Ventilator 40 06/28/17 19:00 68 06/28/17 18:28 98.8 70 18 176/63 100 06/28/17 18:15 98.8 72 18 173/60 99 06/28/17 18:02 98.8 69 18 158/52 99 06/28/17 16:30 99 40 06/28/17 16:00 80 06/28/17 16:00 100 Mechanical Ventilator 40 06/28/17 16:00 97.9 80 19 100 169/58 (95) 06/29/17 06/29/17 06/29/17 07:00 15:00 23:00 Intake Total 400 ml 300 ml Output Total 1725 ml Balance -1325 ml 300 ml Result Diagram: 06/29/17 0431 06/29/17 0431 Laboratory Results Laboratory Tests Test 06/28/17 15:00 06/29/17 04:31 White Blood Count 8.4 TH/MM3 7.8 TH/MM3 Red Blood Count 2.41 MIL/MM3 3.55 MIL/MM3 Hemoglobin 7.2 GM/DL 10.5 GM/DL Hematocrit 21.2 % 30.1 % Mean Corpuscular Volume 87.7 FL 84.7 FL Mean Corpuscular Hemoglobin 29.7 PG 29.4 PG Mean Corpuscular Hemoglobin Concent 33.8 % 34.8 % Red Cell Distribution Width 16.3 % 17.3 % Platelet Count 43 TH/MM3 34 TH/MM3 Mean Platelet Volume 7.7 FL 8.1 FL Neutrophils (%) (Auto) 90.1 % 93.5 % Lymphocytes (%) (Auto) 4.9 % 2.7 % Monocytes (%) (Auto) 5.0 % 3.7 % Eosinophils (%) (Auto) 0.0 % 0.0 % Basophils (%) (Auto) 0.0 % 0.1 % Neutrophils # (Auto) 7.6 TH/MM3 7.3 TH/MM3 Lymphocytes # (Auto) 0.4 TH/MM3 0.2 TH/MM3 Monocytes # (Auto) 0.4 TH/MM3 0.3 TH/MM3 Eosinophils # (Auto) 0.0 TH/MM3 0.0 TH/MM3 Basophils # (Auto) 0.0 TH/MM3 0.0 TH/MM3 CBC Comment DIFF FINAL DIFF FINAL Differential Comment Prothrombin Time 19.3 SEC 19.4 SEC Prothromb Time International Ratio 1.7 RATIO 1.7 RATIO Blood Urea Nitrogen 54 MG/DL 61 MG/DL Creatinine 1.42 MG/DL 1.38 MG/DL Random Glucose 111 MG/DL 131 MG/DL Total Protein 6.0 GM/DL 6.1 GM/DL Albumin 3.2 GM/DL 3.3 GM/DL Calcium Level 8.5 MG/DL 8.5 MG/DL Alkaline Phosphatase 72 U/L 75 U/L Aspartate Amino Transf (AST/SGOT) 26 U/L 21 U/L Alanine Aminotransferase (ALT/SGPT) 23 U/L 23 U/L Total Bilirubin 1.2 MG/DL 1.9 MG/DL Sodium Level 143 MEQ/L 143 MEQ/L Potassium Level 3.9 MEQ/L 3.4 MEQ/L Chloride Level 106 MEQ/L 106 MEQ/L Carbon Dioxide Level 27.6 MEQ/L 28.8 MEQ/L Anion Gap 9 MEQ/L 8 MEQ/L Estimat Glomerular Filtration Rate 35 ML/MIN 36 ML/MIN Phosphorus Level 2.7 MG/DL Digoxin Level 2.7 NG/ML Haptoglobin 48 MG/DL Fibrinogen 210 mg/dL Magnesium Level 2.2 MG/DL Lactate Dehydrogenase 201 U/L Culture Results Microbiology Date/Time Source Procedure Growth Status 06/26/17 21:38 Blood Peripheral Aerobic Blood Culture - Preliminary NO GROWTH IN 3 DAYS Resulted 06/26/17 21:38 Blood Peripheral Anaerobic Blood Culture - Preliminary NO GROWTH IN 3 DAYS Resulted 06/26/17 21:38 Blood Peripheral Aerobic Blood Culture - Preliminary NO GROWTH IN 3 DAYS Resulted 06/26/17 21:38 Blood Peripheral Anaerobic Blood Culture - Preliminary NO GROWTH IN 3 DAYS Resulted 06/28/17 09:00 Fluid Pleural Fluid Fungal Smear Pending Received 06/28/17 09:00 Fluid Pleural Fluid Fungal Culture Pending Received 06/28/17 09:00 Fluid Pleural Fluid Acid Fast Stain Pending Received 06/28/17 09:00 Fluid Pleural Fluid Mycobacterial Culture Pending Received 06/28/17 09:00 Fluid Pleural Fluid Gram Stain - Final Resulted 06/28/17 09:00 Fluid Pleural Fluid Body Fluid Culture - Preliminary NO GROWTH IN 24 HOURS. Resulted 06/27/17 15:03 Sputum Expectorated Sputum Gram Stain - Final Complete 06/27/17 15:03 Sputum Expectorated Sputum Sputum Culture - Final HEAVY GROWTH NORMAL RESPIRATORY TRUDY Complete 06/27/17 01:30 Urine Catheterized Urine Urine Culture - Final NO GROWTH IN 48 HOURS. Complete Imaging Studies Last 24 hours Impressions Chest X-Ray 06/29/17 0600 Signed Impressions: Service Date/Time: Thursday, June 29, 2017 04:52 - CONCLUSION: 1. Left lower lobe atelectasis versus pneumonia. There has been no significant change when compared to the prior exam. 2. Small bilateral effusions Shawn Perez MD Administered Medications Medications (Trade) Dose Ordered Sig/Padmini Route PRN Reason Start Time Stop Time Status Last Admin Dose Admin Chlorhexidine Gluconate (Peridex 0.12% Liq) 15 ml BID@08,20 MT 06/03/17 20:00 06/29/17 09:22 Albuterol/ Ipratropium (Duoneb Neb) 1 ampule Q2HR NEB PRN NEB SHORTNESS OF BREATH 06/03/17 19:00 06/15/17 19:56 Metoprolol Tartrate (Lopressor Inj) 1.25 mg Q6H PRN IV PUSH SBP > 170 + HR > 100 06/04/17 19:15 06/06/17 20:29 Docusate Sodium (Colace Liq) 100 mg Q12HR PO 06/05/17 14:00 06/29/17 09:31 Potassium Bicarb/ Potassium Chloride (K-Lyte Cl Eff) 25 meq Q12HR PO 06/05/17 14:00 06/29/17 09:31 Digoxin (Lanoxin) 0.125 mg DAILY PO 06/06/17 09:00 Future Hold 06/28/17 10:09 Losartan Potassium (Cozaar) 50 mg DAILY PO 06/07/17 09:00 Future hold 06/29/17 09:31 Hydralazine HCl (Apresoline Inj) 20 mg Q4H PRN IV PUSH SYS BP GREATER THAN 160 MMHG 06/07/17 08:00 06/29/17 09:21 Levothyroxine Sodium (Synthroid) 50 mcg DAILY@0600 PO 06/07/17 08:00 06/29/17 05:21 Eltrombopag (Promacta) 25 mg DAILY@1000 PO 06/08/17 10:00 06/29/17 10:12 Insulin Aspart (NovoLOG SUPPLEMENTAL SCALE) 1 BID@0800,2000 SQ 06/08/17 20:00 06/15/17 08:43 Nystatin (Mycostatin Liq) 5 ml QID SWISH-SWAL 06/12/17 13:00 06/29/17 13:38 Budesonide (Pulmicort Respule Neb) 0.5 mg Q12HR NEB NEB 06/16/17 11:15 06/29/17 09:09 Acetaminophen (Tylenol 650 Mg/ 20 ml Liq) 650 mg Q6H PRN PO PAIN 1-10/ FEVER > 101.5 06/18/17 06:30 06/26/17 05:11 Ondansetron HCl (Zofran Inj) 4 mg Q6H PRN IV PUSH NAUSEA OR VOMITING 06/22/17 19:30 06/23/17 08:40 Diltiazem HCl (Cardizem) 90 mg Q6HR PO 06/23/17 12:00 Future Hold 06/27/17 12:14 Guaifenesin (Mucinex Er) 600 mg BID PO 06/23/17 10:15 06/29/17 09:31 Metoclopramide HCl (Reglan Inj) 5 mg Q8HR IV PUSH 06/23/17 17:45 06/29/17 13:38 Enalaprilat (Vasotec Inj) 1.25 mg Q6H PRN IV PUSH SBP>160, DBP>90 06/25/17 08:45 06/28/17 16:53 Polyethylene Glycol (Miralax) 17 gm DAILY PO 06/25/17 09:45 06/29/17 09:31 Albuterol/ Ipratropium (Duoneb Neb) 1 ampule Q6HR NEB NEB 06/26/17 22:00 06/29/17 09:06 Albumin Human 100 ml @ 60 mls/hr Q12H IV 06/26/17 18:00 06/29/17 05:20 Lactated Ringer's 1,000 ml @ 30 mls/hr Q24H IV 06/27/17 18:30 06/29/17 12:08 Methylprednisolone Sodium Succinate (SoluMEDROL INJ) 40 mg Q8HR IV PUSH 06/28/17 14:00 06/29/17 13:38 Propofol 100 ml @ 1.59 mls/hr TITRATE PRN IV SEDATION 06/28/17 10:00 06/29/17 09:21 Potassium Chloride 100 ml @ 50 mls/hr Q2H PRN IV For Potassium 2.8 - 3.2 mEq/L 06/28/17 11:00 06/28/17 12:32 Potassium Chloride 100 ml @ 50 mls/hr Q2H PRN IV For Potassium 3.3 - 3.5 mEq/L 06/28/17 11:00 06/29/17 05:35 Pantoprazole Sodium (Protonix Inj) 40 mg Q12H IV PUSH 06/28/17 21:00 06/29/17 09:30 Metoprolol Tartrate (Lopressor) 50 mg Q8HR PO 06/29/17 14:00 06/29/17 13:38 Cefepime HCl 1000 mg/Sodium Chloride 100 ml @ 200 mls/hr Q12HR IV 06/29/17 09:00 06/29/17 09:30 Objective Remarks GENERAL: Chronically ill, frail-appearing elderly female resting in bed sedated and mechanically ventilated. SKIN: Warm and dry. HEAD: Normocephalic. EYES: No injection or drainage. NECK: Supple, trachea midline. CARDIOVASCULAR: Tachycardia rhythm RESPIRATORY: Clear anteriorly. Mechanically ventilated GASTROINTESTINAL: Abdomen soft, non-tender, nondistended. EXTREMITIES: No cyanosis, or edema. MUSCULOSKELETAL: Generalized weakness NEUROLOGICAL: No obvious focal deficit. Awake, alert, and oriented x3. 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 -- After right heart cath, she developed acute massive hemoptysis with shock secondary to acute rupture of pulmonary artery. -- She underwent cardiac cath which identified bleeding from a small branch of the left pulmonary artery. Six coils were placed in the left lower artery. The patient was subsequently extubated. However, her respiratory status declined yesterday. She was on BiPap. She was again intubated due to worsening hypoxemic respiratory failure. -- There are plans for valvuloplasty on Friday; however the patient's son and spouse are contemplating comfort care only. Assessment 89-year-old female with history of chronic ITP admitted to the hospital for coronary artery disease and evaluation of TAVR Plan 1. Patient appears to be refractory to steroids and Promacta with the acute illness 2. There is an option to give IVIG; however would hold off if the family is leaning towards comfort care. 3. Transfuse for platelets less than 20k. 4. If the family does opt for valvuloplasty would recommend giving 2 units platelets prior and also to hang one during the procedure. 5. Monitor CBC. Attending Statement The exam, history, and the medical decision-making described in the above note were completed with the assistance of the mid-level provider. I reviewed and agree with the findings presented. I attest that I had a [id number] encounter with the patient on the same day, and personally performed and documented my assessment and findings in the medical record Thrombocytopenia due to DIC/sepsis and hx of ITP hx of DVT hold AC increase promacta to 50mg daily If needs to undergo procedure then give PLT transfusion If PLTS remain above 35,000 by tomorrow, will start Heparin GTT Had recent DVT d/w rn o/n events reviewed case discussed with Melody Tafoya Jun 29, 2017 14:44 Lucius Ortega MD Jun 29, 2017 16:05
[2017-06-29] MEDS ORDERED: WARFARIN SOD 1 MG TAB PO SCH (16:00)
--- NOTE | 2017-06-29 16:07 | PD.CARD.PN ---
Subjective Subjective Remarks Overnight events Aspiration Resp Failure Flash Pulmonary Edema afebrile weaning FIO2 Objective Medications Current Medications Medications (Trade) Dose Ordered Sig/Padmini Route Start Time Stop Time Status Last Admin (Peridex 0.12% Liq) 15 ml BID@08,20 MT 06/03/17 20:00 06/29/17 09:22 (Duoneb Neb) 1 ampule Q2HR NEB PRN NEB 06/03/17 19:00 06/15/17 19:56 (K-Lyte Cl Eff) 50 meq UNSCH PRN PO 06/03/17 19:15 (Mag-Ox) 800 mg UNSCH PRN PO 06/03/17 19:15 (K-Phos) 2,000 mg Q4H PRN PO 06/03/17 19:15 (K-Phos) 2,000 mg UNSCH PRN PO/TUBE 06/03/17 19:15 (D50w (Vial) Inj) 50 ml UNSCH PRN IV PUSH 06/04/17 12:15 (Glucagon Inj) 1 mg UNSCH PRN OTHER 06/04/17 12:15 (Lopressor Inj) 1.25 mg Q6H PRN IV PUSH 06/04/17 19:15 06/06/17 20:29 (Colace Liq) 100 mg Q12HR PO 06/05/17 14:00 06/29/17 09:31 (K-Lyte Cl Eff) 25 meq Q12HR PO 06/05/17 14:00 06/29/17 09:31 (Lanoxin) 0.125 mg DAILY PO 06/06/17 09:00 Future Hold 06/28/17 10:09 (Cozaar) 50 mg DAILY PO 06/07/17 09:00 Future hold 06/29/17 09:31 (Apresoline Inj) 20 mg Q4H PRN IV PUSH 06/07/17 08:00 06/29/17 14:49 (Synthroid) 50 mcg DAILY@0600 PO 06/07/17 08:00 06/29/17 05:21 (Promacta) 25 mg DAILY@1000 PO 06/08/17 10:00 06/29/17 10:12 (Pill Splitter) 1 ea UNSCH PRN OTHER 06/07/17 22:15 (NovoLOG SUPPLEMENTAL SCALE) 1 BID@0800,2000 SQ 06/08/17 20:00 06/15/17 08:43 (Mycostatin Liq) 5 ml QID SWISH-SWAL 06/12/17 13:00 06/29/17 13:38 (Pulmicort Respule Neb) 0.5 mg Q12HR NEB NEB 06/16/17 11:15 06/29/17 09:09 (Tylenol 650 Mg/ 20 ml Liq) 650 mg Q6H PRN PO 06/18/17 06:30 06/26/17 05:11 Pharmacy Profile Note 0 ml @ 0 mls/hr UNSCH OTHER 06/20/17 10:00 (Zofran Inj) 4 mg Q6H PRN IV PUSH 06/22/17 19:30 06/23/17 08:40 (Cardizem) 90 mg Q6HR PO 06/23/17 12:00 Future Hold 06/27/17 12:14 (Mucinex Er) 600 mg BID PO 06/23/17 10:15 06/29/17 09:31 (Reglan Inj) 5 mg Q8HR IV PUSH 06/23/17 17:45 06/29/17 13:38 (Vasotec Inj) 1.25 mg Q6H PRN IV PUSH 06/25/17 08:45 06/28/17 16:53 (Miralax) 17 gm DAILY PO 06/25/17 09:45 06/29/17 09:31 (Melatonin) 5 mg HS PRN PO 06/25/17 16:15 (Duoneb Neb) 1 ampule Q6HR NEB NEB 06/26/17 22:00 06/29/17 09:06 Albumin Human 100 ml @ 60 mls/hr Q12H IV 06/26/17 18:00 06/29/17 05:20 (Peridex 0.12% Liq) 15 ml BID@08,20 MT 06/27/17 20:00 Diltiazem HCl 125 mg/Sodium Chloride 125 ml @ 5 mls/hr TITRATE PRN IV 06/27/17 17:00 Lactated Ringer's 1,000 ml @ 30 mls/hr Q24H IV 06/27/17 18:30 06/29/17 12:08 (SoluMEDROL INJ) 40 mg Q8HR IV PUSH 06/28/17 14:00 06/29/17 13:38 Propofol 100 ml @ 1.59 mls/hr TITRATE PRN IV 06/28/17 10:00 06/29/17 09:21 Potassium Chloride 100 ml @ 50 mls/hr Q2H PRN IV 06/28/17 11:00 Potassium Chloride 100 ml @ 50 mls/hr Q2H PRN IV 06/28/17 11:00 06/28/17 12:32 (K-Lyte Cl Eff) 50 meq UNSCH PRN PO 06/28/17 11:00 Potassium Chloride 100 ml @ 25 mls/hr UNSCH PRN IV 06/28/17 11:00 Potassium Chloride 100 ml @ 50 mls/hr Q2H PRN IV 06/28/17 11:00 06/29/17 05:35 Magnesium Sulfate 4 gm/Sodium Chloride 100 ml @ 50 mls/hr UNSCH PRN IV 06/28/17 11:00 (Mag-Ox) 800 mg UNSCH PRN PO 06/28/17 11:00 Magnesium Sulfate 2 gm/Sodium Chloride 100 ml @ 50 mls/hr UNSCH PRN IV 06/28/17 11:00 (K-Phos) 2,000 mg Q4H PRN PO 06/28/17 11:00 Sodium Phosphate 30 mmol/Sodium Chloride 250 ml @ 42 mls/hr UNSCH PRN IV 06/28/17 11:00 (K-Phos) 2,000 mg UNSCH PRN PO/TUBE 06/28/17 11:00 Potassium Phosphate 30 mmol/ Sodium Chloride 260 ml @ 42 mls/hr UNSCH PRN IV 06/28/17 11:00 (Protonix Inj) 40 mg Q12H IV PUSH 06/28/17 21:00 06/29/17 09:30 (Apresoline Inj) 20 mg Q4H PRN IV PUSH 06/28/17 18:00 (Lopressor) 50 mg Q8HR PO 06/29/17 14:00 06/29/17 13:38 Cefepime HCl 1000 mg/Sodium Chloride 100 ml @ 200 mls/hr Q12HR IV 06/29/17 09:00 06/29/17 09:30 (Coumadin) 1 mg DAILY@1600 PO 06/29/17 16:00 Vital Signs / I&O Vital Signs Date Time Temp Pulse Resp B/P (MAP) Pulse Ox O2 Delivery O2 Flow Rate FiO2 06/29/17 15:00 97.9 82 20 149/68 (95) 98 164/64 (97) 06/29/17 15:00 72 06/29/17 11:49 40 06/29/17 11:00 98.4 72 14 128/58 (81) 99 137/49 (78) 06/29/17 11:00 99 Mechanical Ventilator 40 06/29/17 11:00 40 06/29/17 11:00 74 06/29/17 09:09 97 40 06/29/17 07:00 72 06/29/17 07:00 98.3 70 18 146/62 (90) 97 165/62 (96) 06/29/17 07:00 40 06/29/17 07:00 97 Mechanical Ventilator 40 06/29/17 04:37 99 40 06/29/17 03:14 98.2 70 18 98 138/50 (79) 06/29/17 03:14 71 06/29/17 03:14 40 06/29/17 03:14 98 Mechanical Ventilator 40 06/29/17 00:53 98 40 06/29/17 00:14 98.0 68 18 125/60 (81) 98 158/62 (94) 06/29/17 00:14 77 06/29/17 00:14 40 06/29/17 00:14 98 Mechanical Ventilator 40 06/28/17 21:21 99 40 06/28/17 21:05 98.1 78 18 175/67 99 06/28/17 20:46 98.7 70 18 175/65 99 06/28/17 20:23 98.7 70 18 170/63 99 06/28/17 19:53 100 40 06/28/17 19:32 40 06/28/17 19:21 98.0 68 18 155/67 (96) 98 173/61 (98) 06/28/17 19:21 97 Mechanical Ventilator 40 06/28/17 19:00 68 06/28/17 18:28 98.8 70 18 176/63 100 06/28/17 18:15 98.8 72 18 173/60 99 06/28/17 18:02 98.8 69 18 158/52 99 06/28/17 16:30 99 40 I/O 11/07/0406/28/17 06/28/17 06/29/17 06/29/17 06/29/17 07:00 15:00 23:00 07:00 15:00 23:00 Intake Total 338 ml 1811 ml 1995 ml 400 ml 300 ml Output Total 800 ml 1575 ml 1725 ml Balance -462 ml 1811 ml 420 ml -1325 ml 300 ml IV Total 278 ml 503 ml 920 ml 300 ml 300 ml Packed Cells 800 ml FFP 700 ml Platelets 288 ml Blood Product IV Normal Saline Flush 320 ml 125 ml Tube Irrigant 60 ml 150 ml Other 100 ml Output Urine Total 800 ml 975 ml 1650 ml Gastric Drainage Total 75 ml Drainage Total 600 ml # Bowel Movements 0 0 1 Physical Exam GENERAL: Intubated, pupils reactive, Alert, awake, oriented SKIN: Warm and dry. HEAD: Normocephalic. EYES: No scleral icterus. No injection or drainage. NECK: Supple, trachea midline. No JVD or lymphadenopathy. CARDIOVASCULAR: Irr Irr 2/6SEM no gallops, or rubs. RESPIRATORY: Vented. GASTROINTESTINAL: Abdomen soft, non-tender, nondistended. EXTREMITIES: No cyanosis, or edema. Laboratory Laboratory Tests Test 06/29/17 04:31 White Blood Count 7.8 TH/MM3 Red Blood Count 3.55 MIL/MM3 Hemoglobin 10.5 GM/DL Hematocrit 30.1 % Mean Corpuscular Volume 84.7 FL Mean Corpuscular Hemoglobin 29.4 PG Mean Corpuscular Hemoglobin Concent 34.8 % Red Cell Distribution Width 17.3 % Platelet Count 34 TH/MM3 Mean Platelet Volume 8.1 FL Neutrophils (%) (Auto) 93.5 % Lymphocytes (%) (Auto) 2.7 % Monocytes (%) (Auto) 3.7 % Eosinophils (%) (Auto) 0.0 % Basophils (%) (Auto) 0.1 % Neutrophils # (Auto) 7.3 TH/MM3 Lymphocytes # (Auto) 0.2 TH/MM3 Monocytes # (Auto) 0.3 TH/MM3 Eosinophils # (Auto) 0.0 TH/MM3 Basophils # (Auto) 0.0 TH/MM3 CBC Comment DIFF FINAL Differential Comment Haptoglobin 48 MG/DL Prothrombin Time 19.4 SEC Prothromb Time International Ratio 1.7 RATIO Fibrinogen 210 mg/dL Blood Urea Nitrogen 61 MG/DL Creatinine 1.38 MG/DL Random Glucose 131 MG/DL Total Protein 6.1 GM/DL Albumin 3.3 GM/DL Calcium Level 8.5 MG/DL Magnesium Level 2.2 MG/DL Alkaline Phosphatase 75 U/L Aspartate Amino Transf (AST/SGOT) 21 U/L Alanine Aminotransferase (ALT/SGPT) 23 U/L Lactate Dehydrogenase 201 U/L Total Bilirubin 1.9 MG/DL Sodium Level 143 MEQ/L Potassium Level 3.4 MEQ/L Chloride Level 106 MEQ/L Carbon Dioxide Level 28.8 MEQ/L Anion Gap 8 MEQ/L Estimat Glomerular Filtration Rate 36 ML/MIN Imaging Last 24 hours Impressions Chest X-Ray 06/29/17 0600 Signed Impressions: Service Date/Time: Thursday, June 29, 2017 04:52 - CONCLUSION: 1. Left lower lobe atelectasis versus pneumonia. There has been no significant change when compared to the prior exam. 2. Small bilateral effusions Shawn Perez MD Assessment and Plan Problem List: (1) Respiratory failure ICD Codes: J96.90 - Respiratory failure, unspecified, unspecified whether with hypoxia or hypercapnia Plan: Aspiration PNA UTI Severe ITP ENZO Diastolic Dysfunction Improve from respiratory standpoint. Sedated intubated. Weaning FIO2. s/p thoracentesis Flash pulmonary edema and HF decompensated multifactorial however she does have significant , afib, HTN that was not adequately control in the floor and difficulty swallowing. Given that her respiratory status in significantly improved I think reasonable to start doing CPAP trials and try to extubate when she i ready. If weaning from the vent difficulty we can consider to do a BAV however risk continues to be very high for CVA due Porcelain Aorta and Bleeding given low PLT. Regarding aspiration this needs to be manage. Recommendations: Aspiration precautions ?Peg Tube GI to follow Antx per ID Follow CBC. No active signs of bleeding Aggressive medical management for Afib/rate control and HTN Case discuss with family, ID and Receiving Lead (2) Shock, postoperative ICD Codes: T81.10XA - Postprocedural shock unspecified, initial encounter Status: Resolved (3) Pulmonary arterial thrombosis ICD Codes: I26.99 - Other pulmonary embolism without acute cor pulmonale Status: Acute (4) CAD (coronary artery disease) ICD Codes: I25.10 - Atherosclerotic heart disease of [place] coronary artery without angina pectoris (5) Aortic stenosis ICD Codes: I35.0 - Nonrheumatic aortic (valve) stenosis (6) DVT (deep venous thrombosis) ICD Codes: I82.409 - Acute embolism and thrombosis of unspecified deep veins of unspecified lower extremity Problem Qualifiers (1) Respiratory failure: Qualified Codes: J96.01 - Acute respiratory failure with hypoxia Brad Page MD Jun 29, 2017 16:07
[2017-06-29] MEDS: RESP: IPRATROPIUM 0.5 MG/2.5 ML NEB NEB SCH ×2 (16:48→20:46)
[2017-06-29] MEDS ORDERED: POTASSIUM CHLORIDE INJ 40 MEQ in SODIUM CHLORID 0.9% 500 ML INJ 500 ML IV-CENTRAL ONE (17:00)
[2017-06-29] MEDS: FUROSEMIDE 20 MG/2 ML VIAL IV PUSH SCH (17:18)
--- NOTE | 2017-06-29 17:48 | HHI.PR ---
Addendum to Inpatient Note Addendum Reason: Additional Documentation Additional Information Delayed entry Patient d.w Dr.John FREITAS Micafungin IV DC Taflaro IV as no MRSA in sputum or blood. Continue Cefepime IV DC Levaquin in view of cardiac issues. Follow cultures Follow clinically. Likely acute aspiration event. Dolores Segura MD Jun 29, 2017 17:48
[2017-06-29] MEDS: DEXMEDETOMIDINE 200 MCG in NS 48 ML IV PRN (20:15)
[2017-06-30] VITALS (14 sets, daily range): BP systolic 144–197; BP diastolic 66–87; PULSE 76–89; RESP 0–28; TEMP 97.5–98.6; O2SAT 96–99
[2017-06-30] MEDS: hydrALAZINE HCL 20 MG/ML VIAL IV PUSH PRN ×3 (02:18→17:01)
[2017-06-30 03:20] LABS: AUTOMATED NEUTROPHIL # 8.1 TH/MM3 (1.8-7.7); BASOPHIL % 0.1 % (0.0-2.0); HEMATOCRIT 34.2 % (35.0-46.0); LYMPH % 2.3 % (9.0-44.0); LYMPHOCYTE # 0.2 TH/MM3 (1.0-4.8); MEAN CELL VOLUME 85.5 FL (80.0-100.0); MEAN CORPUSCULAR HEMOGLOBIN 28.6 PG (27.0-34.0); MEAN CORPUSCULAR HGB CONC 33.4 % (32.0-36.0); MONO % 6.1 % (0.0-8.0); NEUT % 91.5 % (16.0-70.0); PLATELET COUNT 30 TH/MM3 (150-450); RED CELL DISTRIBUTION WIDTH 17.3 % (11.6-17.2); WHITE BLOOD COUNT 8.8 TH/MM3 (4.0-11.0)
[2017-06-30 03:25] LABS: HEMO FLAGS AUTO DIFF
[2017-06-30 03:32] LABS: INTERNATIONAL NORMALIZED RATIO 1.5 RATIO; PROTHROMBIN TIME - PATIENT 16.8 SEC (9.8-11.6)
[2017-06-30 03:34] LABS: ALKALINE PHOSPHATASE 93 U/L (45-117); ALT (GPT) 34 U/L (10-53); ANION GAP 8 MEQ/L (5-15); AST (GOT) 26 U/L (15-37); BICARBONATE 30.7 MEQ/L (21.0-32.0); BLOOD UREA NITROGEN 78 MG/DL (7-18); CHLORIDE 106 MEQ/L (98-107); GLOMERULAR FILTRATION RATE 32 ML/MIN (>89); MAGNESIUM 2.4 MG/DL (1.5-2.5); POTASSIUM 3.4 MEQ/L (3.5-5.1); SODIUM (NA) 145 MEQ/L (136-145); TOTAL BILIRUBIN ADULT 1.2 MG/DL (0.2-1.0)
[2017-06-30 03:54] LABS: SCAN/DIFF AUTO DIFF CONFIRMED
[2017-06-30] MEDS: RESP: IPRATROPIUM 0.5 MG/2.5 ML NEB NEB SCH ×4 (04:06→20:30)
[2017-06-30] MEDS: methylPREDNISolone SOD SUCC 40 MG/1 ML VIAL IV PUSH SCH ×3 (05:35→21:04)
[2017-06-30] MEDS: ALBUMIN 25% INJ 100 ML IV SCH ×2 (05:35→17:02)
[2017-06-30] MEDS: METOCLOPRAMIDE HCL 10 MG/2 ML VIAL IV PUSH SCH ×3 (05:35→21:04)
[2017-06-30] MEDS: LEVOTHYROXINE SODIUM 50 MCG TAB PO SCH (05:36)
[2017-06-30] MEDS: METOPROLOL TARTRATE 25 MG TAB PO SCH (05:36)
--- NOTE | 2017-06-30 06:21 | RADRPT ---
EXAM DATE/TIME: 06/30/2017 04:53 [facility] COMPARISON: CHEST SINGLE AP, June 28, 2017, 9:18. CHEST SINGLE AP, June 29, 2017, 4:52. INDICATIONS : Short of breath. MEDICAL HISTORY : Hypercholesterolemia. Hypothyroidism. Congestive heart failure. SURGICAL HISTORY : Tonsillectomy. Pacemaker. ventral hernia repair, Right thoracentesis ENCOUNTER: Subsequent ACUITY: 3 weeks PAIN SCORE: 0/10 LOCATION: Bilateral chest FINDINGS: A single view of the chest demonstrates the endotracheal tube and left IJ central line in good positi on. The NG tube proximal port is at the GE junction. Again vascular coil overlies the heart. Minimal infiltrate right lung base. Small left pleural effusion.. The cardiomediastinal contours are unremar kable. Osseous structures are intact. CONCLUSION: Pacemaker and tubes and catheters all in good position. The NG tube could be advanced. Minimal infilt rate remains right lung base. Domingo Claire MD on June 30, 2017 at 6:18 Board Certified Radiologist. This report was verified electronically.
[2017-06-30] MEDS: hydrALAZINE HCL 50 MG TAB PO SCH ×3 (06:45→21:02)
[2017-06-30] MEDS: FUROSEMIDE 20 MG/2 ML VIAL IV PUSH SCH ×2 (06:53→17:02)
[2017-06-30] MEDS: METOPROLOL TARTRATE 5 MG/5 ML VIAL IV PUSH PRN (07:30)
[2017-06-30] MEDS: CHLORHEXIDINE 0.12% (ORAL KIT) 15 ML CUP MT SCH ×2 (08:00→20:00)
--- NOTE | 2017-06-30 08:31 | HHI.CCPN ---
Subjective Remarks/Hospital Course I was emergently called to cardiac cath lab radiology technologist by Dr. Corrales. Ms. Mahoney who is 89 yo female with history of severe aortic stenosis was undergoing left and right heart catheter for TAVR evaluation. With right heart catheterization patient developed acute massive hemoptysis with shock secondary to acute rupture of pulmonary artery. Patient was intubated by Dr. Potter and ETT was advance to Right lung for selective right lung ventilation due to massive hemorrhage from Left lung. On my arrival to cardiac cath lab radiology technologist, patient was rapidly dropping blood pressure. Dopamine was already started. I ordered Shantanu-Synephrine, at 300 mcg/ m in an attempt to increase MAP and also increase the pulmonary vasoconstriction. Levophed was also added to maintain blood pressure and rapidly titrated up. Emergency release blood initially 3 units was ordered stat along with 2 units of FFP, 1 unit of platelet. I also emergently contacted Dr. Vásquez was in the office. (Dr. Bedoya the on-call CT surgeon was operating). While on Levophed Shantanu-Synephrine and dopamine, patient developed coarse V. fib/V. tach, received brief CPR, and was DC cardioverted 1 with return of spontaneous circulation and sinus rhythm. I discussed with Dr. Corrales and anesthesiologist, I also contacted Dr. Josue from invasive radiology.Dr. Josue immediately arrived to the cardiac cath lab radiology technologist. Dr. Abdelrahman francis performed PARVIN which showed vigorous LV contraction but cavity was empty. Received Continuous massive fluid resuscitation with multiple crystalloid boluses, bicarbonate and calcium. Blood arrived and initially 3 units of PRBC, 2 units of 1 unit of platelets was given with calcium total 3 g given after blood transfusion. Because of persistent hypotension, additional 2 units of PRBC was given. While I resuscitated the patient, Dr. Corrales and Dr. Jennings performed right heart cath, identified bleeding of a small branch in the left pulmonary artery. They put put in 6 coils in the lower left lower pulmonary artery followed with Gelfoam closing the perforation. 06/04: Emergency chest 2 yesterday for right pneumothorax with hypotension and hypoxia. Remains intubated sedated and on Levophed. FiO2 remains at 100%, Sat improving to 94-95 %. UO adequate overnight. 2-D echo on my review normal LV and RV function, no PFO on bubble study 06/05: Patient is in atrial fibrillation currently on Cardene infusion for blood pressure control. Chest x-ray shows percutaneous emphysema and small apical pneumothorax. Remains on 80% FiO2. I discussed with interventional radiology. We will attempt CT-guided repositioning of the pigtail catheter and possibly upgrading to a larger tube. Urine output adequate 750 mL in 24 hours 06/06: Currently remains in A. fib with rate controlled, hypertensive on Cardizem drip. Oxygen saturation has improved FiO2 now to 40% with saturation 97%. Urine output excellent with Lasix 4.5 L in 24 hours. Chest x-ray today shows 2.5 cm bilateral apical pneumothorax, also left side has 1.2 cm lateral pneumothorax 06/07: Intubated, on low dose propofol for ventilator synchrony. FiO2 40% oxygen saturation 99%. Chest x-ray and labs pending urine output 2.7 L. 3 chest tubes with no air leak. If neuro exam not improving off sedation will check CT of the head. Currently on propofol will pattern changer to Precedex to initiate weaning trials. On weaning doses of inhaled Flolan currently on 30, 000 ng 06/08: Remains intubated, mild sedation with Precedex. Overnight FiO2 increased to 65% for hypoxia. CXR left more than right consolidation of lower lobes. Sputum positive for MRSA on vancomycin. Bilateral lower extremity US studies yesterday showed DVT, initiated on IV heparin. Currently therapeutic on heparin. No evidence of pulmonary hemorrhage. Neuro exam is improving weekly follows commands all 4 extremities 06/09: remains intubated. failed CPAP yesterday. on Cleviprex and precedex. fio2 back to 40%. CXR improved aeration with the exception of known LLL. FC x 4. 06/10: failed SBT again for apnea. but much more awake. denies pain. ROS negative. off cleviprex. new air leak in chest tube. will get chest xray to re- eval. 06/11: Warm, well perfused. Alert, cooperative. Communicates with head nod, hand gestures. Comfortable respiratory pattern and acceptable excursions.Air leaks will seal when off positive pressure ventilation. FiO2 to 0.80 last night briefly; now 0.40. I'll come back later today and see if I can get her extubated. 06/12: Required re-intubation for hypoxemic respiratory failure last evening. She is now warm with well perfused fingers and toes. Low dose levophed not hampering peripheral perfusion. Mild prerenal azotemia. CXR with diffuse infiltrates as before. WBC 32,00, afebrile. Must assume colonized lungs at least. Antibiotic coverage is appropriate. Reculture sputum, urine. Progress to weaning trials daily.Hemodynamics appear excellent, rate a minor problem pretty well controlled. Continue Vanc. Stop pip/roxi, start cefepime. Narrow after cultures. Change CVLs, draw blood cultures. 06/13: Persistent leukocytosis, Tmax 100.2. O2 diffusion acceptable on positive pressure ventilation. Sputum culture pending. Remains warm and well perfused. Continue daily spontaneous breathing trials. 06/14: Bronch and BAL this morning by Dr. Muñoz. Gas exchange remains acceptable. Continue SBTs. 06/15: Looks great on SBTs/CPAP. She would benefit from a temporary tracheostomy. But she will eventually be off and extubated for good. C&S pending from BAL. Continue present abx regimen - discussed with Dr. Segura. 06/16: Awake alert following commands on vent. Currently on Precedex 0.5 g per KG per hour. Still has large amount of ETT secretions, but improving. R pigtail dislodged with turning, no pneumo on repeat CXR 06/17: Awake alert on low dose Precedex. Tolerated CPAP yesterday. Not extubated yesterday due copious bloody secretions. The chest x-ray shows some interval improvement and secretions slightly improved. Will proceed with SBT and possible extubation 06/18: Extubated yesterday tolerating very well. Coughing up sputum, cough seems adequate. Slight increase in WBC to 19.1. Received single dose of Decadron yesterday. Overall doing well communicating, no fever 06/19: WBC count slightly improved 17.9. Otherwise breathing comfortably. Single episode of delirium overnight. Will remove Payne today and also remove right chest tube 06/20: Up in chair, labs pending. CXR showing slight increase in L effusion. Will check bedside US. [facility] Re consult Note: 06/26/17: Critical care reconsulted for acute desaturation. After patient was sat on the side of the bed and when put back in the bed she acutely desaturated to mid 70s. Placed on nonrebreather and I was asked to evaluate the patient by Dr. Corrales. On my exam patient is in moderate distress, diffuse crackles on the chest. Stat chest x-ray shows acute change from chest x-ray 2 days ago. Bilateral diffuse interstitial and alveolar infiltrates with bilateral pleural effusions consistent with CHF. IV 20 mg Lasix given stat. Payne reinserted. Stat Bumex infusion started and transfer to ICU stat and placed on BiPAP 12 over 5. At this time does not need reintubation but this is a possibility 06/27: Remains on BiPAP overnight, slightly tachypneic but oxygen saturation 97 % on 55% FiO2. Chest x-ray shows improved bilateral infiltrate indicating improving CHF. After receiving additional Lasix and Bumex infusion urine output approximately 800 ml in 24 hours. Bumex infusion was increased to 1 mg per hour. UA shows evidence of UTI. Platelet count dropped to 57, most likely secondary to sepsis. DC Zyvox start vancomycin reconsult ID. Cefepime was added yesterday 06/28: Intubated yesterday noon due to acute worsening of hypoxemic respiratory failure. Remains intubated sedated critically ill though stabilizing. WBC count has normalized to 9.9 but platelet count further decreased to 32. I will increase Solu-Medrol 40 every 8 hours and get hematology consult. BUN/ creatinine 50/1.39, slightly worsened but urine output remains excellent a terminal overnight. Plan for right thoracentesis today after FFP and platelet transfusion. Currently only on 2 mcg/m of Levophed. 2 D Echo yesterday showed increased mean gradient. May need BAV as bridge to TAVR (secondary to flash pulmonary edema and heart failure) 06/29: Patient remains intubated sedated. Remains critically ill. Chest x-ray remained stable to slightly increased pulmonary vascular congestion. Platelet count has further dropped 34, Hb stable at 10.5. Hematology is following on IV steroids and Promacta. Dr. Ortega considering IVIG. With low platelet, Coumadin is on hold. Will start IV Heparin for LE DVT (US 06/07/17) when cleared by Hematology INR is 1.[address] Corrales to decide on BAV. UO 2.6L in 24 hours 06/30: Patient is off sedation more awake follows commands intermittently. On attempted CPAP with pressure support 15 becomes slightly tachypneic. Urine output 2.5 L in 24 hours BUN elevated to 78 creatinine 1.5. CBC downtrending hemoglobin remained stable. Platelet count dropped to 30 without evidence of bleeding. Anticoagulation on hold due to severe thrombocytopenia. Family declines further invasive treatment Objective Vital Signs Date Time Temp Pulse Resp B/P (MAP) Pulse Ox O2 Delivery O2 Flow Rate FiO2 06/30/17 08:00 98 40 06/30/17 03:00 98.6 89 0 185/71 (109) 153/76 (101) 06/30/17 03:00 Mechanical Ventilator 06/27/17 11:00 15.00 Intake and Output 06/30/17 06/30/17 07/01/17 08:00 16:00 00:00 Intake Total 300 ml Output Total 1400 ml Balance -1100 ml Result Diagram: 06/30/17 0236 06/30/17 0236 Other Results Microbiology Date/Time Source Procedure Growth Status 06/27/17 15:03 Sputum Expectorated Sputum Gram Stain - Final Complete 06/27/17 15:03 Sputum Expectorated Sputum Sputum Culture - Final HEAVY GROWTH NORMAL RESPIRATORY TRUDY Complete Objective Remarks GENERAL: Lying in bed off all sedation SKIN: Skin/dry. ENT: Oral cavity is moist. Orotracheally intubated. NECK: Trachea midline. Supple. Positive JVD CARDIOVASCULAR: Remains in atrial fibrillation rate controlled now, but hypertensive. Systolic murmur over apex and LSB. Hypertensive RESPIRATORY: Air entry equally diminished with bilateral crackles, improving, few scattered wheezes. GASTROINTESTINAL: Abdomen Soft, no guarding. BS active. MUSCULOSKELETAL: Limbs well perfused. UE edematous NEUROLOGICAL: Intubated off sedation. Moves extremities, weakly following commands all four extremities Urinary Catheter: Yes Assessment to: Continue Vascular Central Line Catheter: Yes Assessment to: Continue Date of Insertion: Jun 27, 2017 Side: Right Location: Internal, Jugular A/P Assessment and Plan Assessment: 89yF with severe aortic stenosis, admitted to ICU after RHC complicated by Pulmonary Artery rupture, pneumothorax secondary to barotrauma, MRSA healthcare associated pneumonia. Now placed back in ICU with acute hypoxic respiratory failure, from flash pulmonary edema due to diastolic CHF and also with sepsis. Worsening acute kidney injury on thrombocytopenia is concerning. Unable to anticoagulate for bilateral DVTs due to severe thrombocytopenia NEURO: - Precedex to facilitate vent weaning, daily sedation vacation - Holding home sertraline. Tylenol PRN - Initial CT of the head and C-spine negative for acute injury RESP: Acute hypoxemic respiratory failure Pulmonary edema/pleural effusions s/p Left lower pulmonary artery rupture with massive hemorrhage 06/03/17 MRSA pneumonia Previous Large Left hemothorax s/p IR chest tube placement, residual L pneumo after evacuation Previous Bilateral apical pneumothorax Bilateral lower extremity DVT - Transferred to ICU 06/26/17 initiated on BiPAP 12. Intubated 06/27/17 for worsening hypoxemic respiratory failure - Continue ACV, FiO2 down to 40% PEEP 8. Start daily SBT, becomes tachypneic when pressure-support below 15 - Scheduled DuoNeb every 6 hours and when necessary. Continue INH Budesonide - Chest x-ray 06/26 shows extensive bilateral interstitial and alveolar infiltrates with bilateral pleural effusions consistent with acute CHF exacerbation - CXR 06/27 interval improvement in pulmonary edema, CXR 06/30 stable - s/p coil and Gelfoam closure of Left lower pulmonary artery (peripheral small branch) by Rhoda Corrales and Michaela (see resuscitation note on 06/03/17) - Last Extubated 06/16/17. Previously Required re-intubation 06/02 for hypoxemia - Prev Sputum with MRSA. (Was on Zyvox, Levaquin-see ID section for new ABX) - Previously s/p chest tube x2 for right pneumothorax on 06/03. New apical chest tube placed 06/06/17 - IR, placed 24 F Left chest tube 06/05 with drainage of 2 L hemothorax, residual pneumothorax present, now resolved - s/p Bronchoscopy on 06/03/17 with removal of blood predominantly from L lung, s/p repeat bronch 06/06, 06/15 - Venous duplex -bilateral lower extremity DVT. Start heparin IV when plt count >35K per hematology CV/Heme: CHF/pulmonary edema Acute Diastolic HF exacerbation Severe Aortic Stenosis Atrial fibrillation with RVR Thrombocytopenia secondary to sepsis and ITP Bilateral lower extremity DVT History of ITP - Discussed extensively with Dr. Corrales. Echo 06/27 shows lulu with mean gradient of 42, LATIA 0.49. Heart failure is secondary to severe aortic stenosis and diastolic dysfunction - Patient's family is not interested in pursuing any further invasive procedures including BAV - High chance of failure, if extubated without valvuloplasty, patient most likely have recurrent heart failure and also has significant weakness - On IV Lasix but will hold again due to worsening creatinine to 1.5 - UO 2.5L in 24 hours - Continue IV steroid for ITP, IV Solu Medrol 40 mg ever 8 hours-reduce to 40 q12 as refractory disturbance and BUN climbing - Continue Promacta for ITP. Hematology Dr. Ortega following, he may consider IVIG, he is aware of LE DVT - Start IV Heparin once plt >35K - Continue Cardizem PO. Continue metoprolol, 50 mg by mouth every 8 hours. Home dose of digoxin - Cozaar 50 mg daily. Add Hydralazine 50 mg PO q8 (patient is well beta blocked) . Add clonidine 0.2 mg PO q6 PRN - Previously Received 6 units of PRBC, 2 units of FFP and one of platelets 06/03. PARVIN normal LV contractility, volume depletion - 2D Echo 06/04 RV LV function look normal, no PFO. 2 D Echo 06/27 good LV fn, concentric LVH, sev MG 42 GI: Ileus - KUB shows improving ileus06/25, Tube feeds with Jevity on hold while on SBT - Continue IV Reglan, GI following : - Monitor renal function closely. Payne catheter. Urine output adequate - Creat increased to 1.5, UO adequate 2.5L in 24 hours, will use IV steroids, hold IV Lasix after today's a.m. dose ID: Sepsis UTI Prev MRSA pneumonia - Started on cefepime 06/26/17 for severe sepsis, will continue. ID Dr. Segura DCd Teflaro, Micafungin and Levaquin on 06/29/17 - Prev BAL culture MRSA. - All recent cultures have been negative ENDO: - Replace electrolytes per protocol PROPH: - No SCDs due to DVT. IV Protonix-change to famotidine due to thrombocytopenia. Coumadin on hold, due to severe thrombocytopenia. Resume when cleared by hematology LINES: - RIJ central line placed 06/27 accidentally dislodged, new left IJ central line placed 06/28/17 Overall impression: Critically ill with acute hypoxemic respiratory from CHF exacerbation, secondary to diastolic dysfunction and severe . D/W Dr. Corrales. Course Complicated by persistent thrombocytopenia, renal failure and overall generalized weakness. Family not interested in pursuing invasive procedures. Will have conference call meeting at 1 PM today to decide on further course of action. Level 3 Tanika Esquivel MD Jun 30, 2017 08:31
[2017-06-30] MEDS ORDERED: PHARMACY ORDERED LAB ONE (08:45)
[2017-06-30] MEDS: INSULIN ASPART SUPPLEMENTAL SCALE SQ SCH ×2 (08:49→21:04)
[2017-06-30] MEDS: CEFEPIME 1000 MG/NS 100 ML IV SCH ×4 (08:50→21:03)
[2017-06-30] MEDS: PANTOPRAZOLE SODIUM 40 MG VIAL IV PUSH SCH ×2 (08:50→21:03)
[2017-06-30] MEDS: NYSTATIN SUSP 500,000 U/5 ML CUP SWISH-SWAL SCH ×4 (08:51→21:03)
[2017-06-30] MEDS: guaiFENesin E.R. 600 MG TAB PO SCH ×2 (08:51→21:04)
[2017-06-30] MEDS: DOCUSATE SODIUM 100 MG/10 ML UDC PO SCH ×2 (08:51→21:03)
[2017-06-30] MEDS: ELTROMBOPAG 50 MG TAB PO SCH (08:51)
[2017-06-30] MEDS: LOSARTAN 50 MG TAB PO SCH (08:51)
[2017-06-30] MEDS: POTASSIUM CHLORIDE 25 MEQ EFFERVESCENT TAB PO SCH ×2 (08:52→21:03)
[2017-06-30] MEDS: POLYETHYLENE GLYCOL 17 GM PKG PO SCH (08:52)
[2017-06-30] MEDS: RESP: BUDESONIDE 0.5 MG/2 ML NEB NEB SCH (09:19)
[2017-06-30] MEDS: cloNIDine HCL 0.2 MG TAB PO PRN (12:06)
[2017-06-30] MEDS: DEXMEDETOMIDINE 200 MCG in NS 48 ML IV PRN (13:28)
--- NOTE | 2017-06-30 13:30 | PD.ONC.PN ---
Subjective Subjective Remarks Afebrile overnight. Patient's family in meeting with Dr. Corrales and Dr. Esquivel deciding whether to pursue aggressive care or comfort care. Patient remains intubated, sedated. Per nursing staff, patient has some bleeding with suctioning. No bleeding urine or elsewhere. Objective Data Date Time Temp Pulse Resp B/P (MAP) Pulse Ox O2 Delivery O2 Flow Rate FiO2 06/30/17 11:00 98.6 89 24 171/81 (111) 98 197/84 (121) 06/30/17 11:00 83 06/30/17 11:00 98 Mechanical Ventilator 40 06/30/17 11:00 40 06/30/17 10:38 96 40 06/30/17 09:00 97 40 06/30/17 08:00 98 40 06/30/17 07:00 98 Mechanical Ventilator 40 06/30/17 07:00 40 06/30/17 07:00 40 06/30/17 07:00 97.9 80 28 150/73 (98) 98 196/87 (123) 06/30/17 07:00 80 06/30/17 04:06 97 40 06/30/17 03:00 98.6 89 0 185/71 (109) 97 153/76 (101) 06/30/17 03:00 86 06/30/17 03:00 40 06/30/17 03:00 Mechanical Ventilator 40 06/30/17 01:03 98 40 06/29/17 23:19 98 40 06/29/17 23:00 98.3 73 0 169/82 (111) 98 168/83 (111) 06/29/17 23:00 98 06/29/17 23:00 Mechanical Ventilator 40 06/29/17 23:00 40 06/29/17 20:47 98 40 06/29/17 19:00 98 06/29/17 19:00 98.6 69 0 156/79 (104) 98 160/82 (108) 06/29/17 19:00 Mechanical Ventilator 40 06/29/17 19:00 40 06/29/17 16:49 97 40 06/29/17 15:00 97.9 82 20 149/68 (95) 98 164/64 (97) 06/29/17 15:00 72 06/29/17 15:00 40 06/29/17 15:00 97 Mechanical Ventilator 40 06/30/17 06/30/17 06/30/17 07:00 15:00 23:00 Intake Total 300 ml Output Total 1400 ml Balance -1100 ml Result Diagram: 06/30/17 0236 06/30/17 0236 Laboratory Results Laboratory Tests Test 06/30/17 02:36 White Blood Count 8.8 TH/MM3 Red Blood Count 4.00 MIL/MM3 Hemoglobin 11.4 GM/DL Hematocrit 34.2 % Mean Corpuscular Volume 85.5 FL Mean Corpuscular Hemoglobin 28.6 PG Mean Corpuscular Hemoglobin Concent 33.4 % Red Cell Distribution Width 17.3 % Platelet Count 30 TH/MM3 Mean Platelet Volume 8.8 FL Neutrophils (%) (Auto) 91.5 % Lymphocytes (%) (Auto) 2.3 % Monocytes (%) (Auto) 6.1 % Eosinophils (%) (Auto) 0.0 % Basophils (%) (Auto) 0.1 % Neutrophils # (Auto) 8.1 TH/MM3 Lymphocytes # (Auto) 0.2 TH/MM3 Monocytes # (Auto) 0.5 TH/MM3 Eosinophils # (Auto) 0.0 TH/MM3 Basophils # (Auto) 0.0 TH/MM3 CBC Comment AUTO DIFF Differential Comment AUTO DIFF CONFIRMED Prothrombin Time 16.8 SEC Prothromb Time International Ratio 1.5 RATIO Blood Urea Nitrogen 78 MG/DL Creatinine 1.51 MG/DL Random Glucose 174 MG/DL Total Protein 6.8 GM/DL Albumin 4.0 GM/DL Calcium Level 8.9 MG/DL Magnesium Level 2.4 MG/DL Alkaline Phosphatase 93 U/L Aspartate Amino Transf (AST/SGOT) 26 U/L Alanine Aminotransferase (ALT/SGPT) 34 U/L Total Bilirubin 1.2 MG/DL Sodium Level 145 MEQ/L Potassium Level 3.4 MEQ/L Chloride Level 106 MEQ/L Carbon Dioxide Level 30.7 MEQ/L Anion Gap 8 MEQ/L Estimat Glomerular Filtration Rate 32 ML/MIN Culture Results Microbiology Date/Time Source Procedure Growth Status 06/28/17 09:00 Fluid Pleural Fluid Fungal Smear Pending Received 06/28/17 09:00 Fluid Pleural Fluid Fungal Culture Pending Received 06/28/17 09:00 Fluid Pleural Fluid Acid Fast Stain Pending Received 06/28/17 09:00 Fluid Pleural Fluid Mycobacterial Culture Pending Received 06/28/17 09:00 Fluid Pleural Fluid Gram Stain - Final Resulted 06/28/17 09:00 Fluid Pleural Fluid Body Fluid Culture - Preliminary NO GROWTH IN 48 HOURS. Resulted 06/27/17 15:03 Sputum Expectorated Sputum Gram Stain - Final Complete 06/27/17 15:03 Sputum Expectorated Sputum Sputum Culture - Final HEAVY GROWTH NORMAL RESPIRATORY TRUDY Complete Imaging Studies Last 24 hours Impressions Chest X-Ray 06/30/17 0600 Signed Impressions: Service Date/Time: Friday, June 30, 2017 04:53 - CONCLUSION: Pacemaker and tubes and catheters all in good position. The NG tube could be advanced. Minimal infiltrate remains right lung base. Domingo Claire MD Administered Medications Medications (Trade) Dose Ordered Sig/Padmini Route PRN Reason Start Time Stop Time Status Last Admin Dose Admin Metoprolol Tartrate (Lopressor Inj) 1.25 mg Q6H PRN IV PUSH SBP > 170 + HR > 100 06/04/17 19:15 06/30/17 07:30 Docusate Sodium (Colace Liq) 100 mg Q12HR PO 06/05/17 14:00 06/30/17 08:51 Potassium Bicarb/ Potassium Chloride (K-Lyte Cl Eff) 25 meq Q12HR PO 06/05/17 14:00 06/30/17 08:52 Digoxin (Lanoxin) 0.125 mg DAILY PO 06/06/17 09:00 Future Hold 06/28/17 10:09 Losartan Potassium (Cozaar) 50 mg DAILY PO 06/07/17 09:00 Future hold 06/30/17 08:51 Hydralazine HCl (Apresoline Inj) 20 mg Q4H PRN IV PUSH SYS BP GREATER THAN 160 MMHG 06/07/17 08:00 06/30/17 05:35 Levothyroxine Sodium (Synthroid) 50 mcg DAILY@0600 PO 06/07/17 08:00 06/30/17 05:36 Insulin Aspart (NovoLOG SUPPLEMENTAL SCALE) 1 BID@0800,2000 SQ 06/08/17 20:00 06/30/17 08:49 Nystatin (Mycostatin Liq) 5 ml QID SWISH-SWAL 06/12/17 13:00 06/30/17 12:06 Budesonide (Pulmicort Respule Neb) 0.5 mg Q12HR NEB NEB 06/16/17 11:15 06/30/17 09:19 Acetaminophen (Tylenol 650 Mg/ 20 ml Liq) 650 mg Q6H PRN PO PAIN 1-10/ FEVER > 101.5 06/18/17 06:30 06/26/17 05:11 Ondansetron HCl (Zofran Inj) 4 mg Q6H PRN IV PUSH NAUSEA OR VOMITING 06/22/17 19:30 06/23/17 08:40 Diltiazem HCl (Cardizem) 90 mg Q6HR PO 06/23/17 12:00 Future Hold 06/27/17 12:14 Guaifenesin (Mucinex Er) 600 mg BID PO 06/23/17 10:15 06/30/17 08:51 Metoclopramide HCl (Reglan Inj) 5 mg Q8HR IV PUSH 06/23/17 17:45 06/30/17 05:35 Polyethylene Glycol (Miralax) 17 gm DAILY PO 06/25/17 09:45 06/30/17 08:52 Albumin Human 100 ml @ 60 mls/hr Q12H IV 06/26/17 18:00 06/30/17 05:35 Chlorhexidine Gluconate (Peridex 0.12% Liq) 15 ml BID@08,20 MT 06/27/17 20:00 06/30/17 08:00 Methylprednisolone Sodium Succinate (SoluMEDROL INJ) 40 mg Q8HR IV PUSH 06/28/17 14:00 06/30/17 05:35 Propofol 100 ml @ 1.59 mls/hr TITRATE PRN IV SEDATION 06/28/17 10:00 06/29/17 09:21 Potassium Chloride 100 ml @ 50 mls/hr Q2H PRN IV For Potassium 2.8 - 3.2 mEq/L 06/28/17 11:00 06/28/17 12:32 Potassium Chloride 100 ml @ 25 mls/hr UNSCH PRN IV For Potassium 3.3 - 3.5 mEq/L 06/28/17 11:00 06/30/17 06:06 Potassium Chloride 100 ml @ 50 mls/hr Q2H PRN IV For Potassium 3.3 - 3.5 mEq/L 06/28/17 11:00 06/29/17 05:35 Pantoprazole Sodium (Protonix Inj) 40 mg Q12H IV PUSH 06/28/17 21:00 06/30/17 08:50 Hydralazine HCl (Apresoline Inj) 20 mg Q4H PRN IV PUSH SBP >170 06/28/17 18:00 06/29/17 22:48 Cefepime HCl 1000 mg/Sodium Chloride 100 ml @ 200 mls/hr Q12HR IV 06/29/17 09:00 06/30/17 08:50 Ipratropium [place] (Atrovent Neb) 0.5 mg Q6HR NEB NEB 06/29/17 16:00 06/30/17 09:19 Furosemide (Lasix Inj) 20 mg BID@,18 IV PUSH 06/29/17 18:00 06/29/18 12:00 06/30/17 06:53 Eltrombopag (Promacta) 50 mg DAILY@1000 PO 06/30/17 10:00 06/30/17 08:51 Dexmedetomidine HCl 200 mcg/ Sodium Chloride 50 ml @ 2.85 mls/hr TITRATE PRN IV Desired RASS 06/29/17 19:00 06/29/17 20:15 Hydralazine HCl (Apresoline) 50 mg Q8HR PO 06/30/17 06:45 06/30/17 06:45 Clonidine (Catapres) 0.2 mg Q6H PRN PO SYS BP GREATER THAN 160 MMHG 06/30/17 08:00 06/30/17 12:06 Objective Remarks GENERAL: Intubated, sedated female supine in hospital bed. SKIN: Warm and dry. HEAD: Normocephalic. some dried blood about mouth EYES: No injection or drainage. NECK: Supple, trachea midline. CARDIOVASCULAR: +S1/S2 RESPIRATORY: anterior huston clear. GASTROINTESTINAL: Abdomen nondistended. : urine clear. EXTREMITIES: No cyanosis NEUROLOGICAL: sedated Assessment/Plan Problem List: (1) Chronic ITP (idiopathic thrombocytopenia) ICD Codes: D69.3 - Immune thrombocytopenic purpura Plan: --acute drop in platelet count is likely from acute illness, DIC, and consumption. --has been on Promacta 25 mg daily. --can give IVIG; however would hold off if the family is leaning towards comfort care. --recommend transfusing for platelets less than 20k. --If the family does opt for valvuloplasty would recommend giving 2 units platelets prior and also to hang one during the procedure. (2) CAD (coronary artery disease) ICD Codes: I25.10 - Atherosclerotic heart disease of [place] coronary artery without angina pectoris Plan: -- Undergone left and right heart catheterization for her TAVR evaluation. -- After right heart cath, she developed acute massive hemoptysis with shock secondary to acute rupture of pulmonary artery. -- She underwent cardiac cath which identified bleeding from a small branch of the left pulmonary artery. Six coils were placed in the left lower artery. The patient was subsequently extubated. However, her respiratory status declined yesterday. She was on BiPap. She was again intubated due to worsening hypoxemic respiratory failure. -- There are plans for valvuloplasty on Friday; however the patient's son and spouse are contemplating comfort care only. Assessment 89-year-old female with history of severe aortic stenosis who has undergone left and right heart catheterization for her TAVR evaluation. After right heart cath, she developed acute massive hemoptysis with shock secondary to acute rupture of pulmonary artery. She was intubated. She became hypotensive and started on dopamine and Shantanu-Synephrine. Levophed was also added. She was a given blood product support with three units of packed red blood cells, two units of FFP, and one unit of platelets. She also developed a V-tach and V-fib and received brief CPR. She was DC cardioverted x1 and returned to spontaneous circulation and sinus rhythm. A PARVIN was performed which showed vigorous LV contraction but the cavity was empty. She received continuous massive fluid resuscitation with multiple crystalloid boluses bicarbonate and calcium. She underwent cardiac cath which identified bleeding from a small branch of the left pulmonary artery. Six coils were placed in the left lower artery. The patient was subsequently extubated. However, her respiratory status declined yesterday. She was on BiPap. She was again intubated due to worsening hypoxemic respiratory failure. She has a right-sided pleural effusion and there are plans for right-sided thoracentesis. There were plans for valvuloplasty on Friday, but now family is considering comfort care. Plan 1. await decision on comfort care 2. monitor CBC Attending Statement The exam, history, and the medical decision-making described in the above note were completed with the assistance of the mid-level provider. I reviewed and agree with the findings presented. I attest that I had a [id number] encounter with the patient on the same day, and personally performed and documented my assessment and findings in the medical record Thrombocytopenia due to sepsis/acute illness--also with hx of ITP Promacta dose was increased to 50mg daily will avoid IVIG due to recent hx of DVT no anticoagulation for now due to thrombocytopenia If sustained platelet count of = >35,000 is achieved case discussed with Dr. Esquivel spoke with pharmacy to discontinue managing Coumadin-- patient was still getting Coumadin despite being d/c'd d/w rn o/n events reviewed Jo Maldonado Jun 30, 2017 13:30 Lucius Ortega MD Jun 30, 2017 23:21
--- NOTE | 2017-06-30 14:30 | HHI.IDPN ---
Subjective Subjective Remarks Ms. Mahoney who is 89 yo female with history of severe aortic stenosis who was undergoing left and right heart catheter for TAVR evaluation. With right heart catheterization patient developed acute massive hemoptysis with shock secondary to acute rupture of pulmonary artery. Patient was intubated by Dr. Potter and ETT was advance to Right lung for selective right lung ventilation due to massive hemorrhage from Left lung. While on Levophed Shantanu-Synephrine and dopamine , patient developed coarse V. fib/V. tach, received brief CPR, and was DC cardioverted 1 with return of spontaneous circulation and sinus rhythm. A PARVIN was performed which showed vigorous LV contraction but cavity was empty. Patient received continuous massive fluid resuscitation with multiple crystalloid boluses, bicarbonate and calcium. Patient needed resuscitation and blood products were instilled. Dr. Jennings performed right heart cath, identified bleeding of a small branch in the left pulmonary artery. They put put in 6 coils in the lower left lower pulmonary artery followed with Gelfoam closing the perforation. Other pertinent events in ICU stay: 06/04: Emergency chest 2 yesterday for right pneumothorax with hypotension and hypoxia. 06/05: Patient was in Atrial fibrillation currently on Cardene infusion for blood pressure control. Chest x-ray shows percutaneous emphysema and small apical pneumothorax. 06/08: Overnight FiO2 increased to 65% for hypoxia. CXR left more than right consolidation of lower lobes. Sputum positive for MRSA on vancomycin. Bilateral lower extremity US studies showed DVT, initiated on IV heparin. 06/11: Extubated. Required re-intubation for hypoxemic respiratory failure on . 06/13: Persistent leukocytosis, Tmax 100.2. Delayed entry seen at ~ 10 am. Overnight events reviewed. RN reports patient desats on turning to the left side. No rash No diarrhea Secretions small white to pompa, not much suctioning needed. UO fair. Antibiotics Cefepime IV Lines Line sites with no e.o infection Past Medical History Hypertension Coronary artery disease Paroxysmal atrial fibrillation ITP Anemia Aortic stenosis severe Hypercholesterolemia Hypothyroidism Malignant colonic neoplasm Right hearing loss Pacemaker insertion January 29, 2013 Tonsillectomy Hernia Cataract PTCA Partial colectomy in 1999 Allergies: Coded Allergies: Sulfa (Sulfonamide Antibiotics) (Unverified Allergy, Severe, 06/03/17) promethazine (Unverified Allergy, Severe, 06/03/17) adhesive (Unverified Allergy, Unknown, 06/03/17) Objective . Vital Signs Date Time Temp Pulse Resp B/P (MAP) Pulse Ox O2 Delivery O2 Flow Rate FiO2 06/30/17 11:00 98.6 89 24 171/81 (111) 98 197/84 (121) 06/30/17 11:00 83 06/30/17 11:00 98 Mechanical Ventilator 40 06/30/17 11:00 40 06/30/17 10:38 96 40 06/30/17 09:00 97 40 06/30/17 08:00 98 40 06/30/17 07:00 98 Mechanical Ventilator 40 06/30/17 07:00 40 06/30/17 07:00 40 06/30/17 07:00 97.9 80 28 150/73 (98) 98 196/87 (123) 06/30/17 07:00 80 06/30/17 04:06 97 40 06/30/17 03:00 98.6 89 0 185/71 (109) 97 153/76 (101) 06/30/17 03:00 86 06/30/17 03:00 40 06/30/17 03:00 Mechanical Ventilator 40 06/30/17 01:03 98 40 06/29/17 23:19 98 40 06/29/17 23:00 98.3 73 0 169/82 (111) 98 168/83 (111) 06/29/17 23:00 98 06/29/17 23:00 Mechanical Ventilator 40 06/29/17 23:00 40 06/29/17 20:47 98 40 06/29/17 19:00 98 06/29/17 19:00 98.6 69 0 156/79 (104) 98 160/82 (108) 06/29/17 19:00 Mechanical Ventilator 40 06/29/17 19:00 40 06/29/17 16:49 97 40 06/29/17 15:00 97.9 82 20 149/68 (95) 98 164/64 (97) 06/29/17 15:00 72 06/29/17 15:00 40 06/29/17 15:00 97 Mechanical Ventilator 40 . Laboratory Tests Test 06/28/17 15:00 06/29/17 04:31 06/30/17 02:36 White Blood Count 8.4 TH/MM3 7.8 TH/MM3 8.8 TH/MM3 Red Blood Count 2.41 MIL/MM3 3.55 MIL/MM3 4.00 MIL/MM3 Hemoglobin 7.2 GM/DL 10.5 GM/DL 11.4 GM/DL Hematocrit 21.2 % 30.1 % 34.2 % Mean Corpuscular Volume 87.7 FL 84.7 FL 85.5 FL Mean Corpuscular Hemoglobin 29.7 PG 29.4 PG 28.6 PG Mean Corpuscular Hemoglobin Concent 33.8 % 34.8 % 33.4 % Red Cell Distribution Width 16.3 % 17.3 % 17.3 % Platelet Count 43 TH/MM3 34 TH/MM3 30 TH/MM3 Mean Platelet Volume 7.7 FL 8.1 FL 8.8 FL Neutrophils (%) (Auto) 90.1 % 93.5 % 91.5 % Lymphocytes (%) (Auto) 4.9 % 2.7 % 2.3 % Monocytes (%) (Auto) 5.0 % 3.7 % 6.1 % Eosinophils (%) (Auto) 0.0 % 0.0 % 0.0 % Basophils (%) (Auto) 0.0 % 0.1 % 0.1 % Neutrophils # (Auto) 7.6 TH/MM3 7.3 TH/MM3 8.1 TH/MM3 Lymphocytes # (Auto) 0.4 TH/MM3 0.2 TH/MM3 0.2 TH/MM3 Monocytes # (Auto) 0.4 TH/MM3 0.3 TH/MM3 0.5 TH/MM3 Eosinophils # (Auto) 0.0 TH/MM3 0.0 TH/MM3 0.0 TH/MM3 Basophils # (Auto) 0.0 TH/MM3 0.0 TH/MM3 0.0 TH/MM3 CBC Comment DIFF FINAL DIFF FINAL AUTO DIFF Differential Comment AUTO DIFF CONFIRMED Haptoglobin 48 MG/DL Laboratory Tests Test 06/28/17 15:00 06/29/17 04:31 06/30/17 02:36 Blood Urea Nitrogen 54 MG/DL 61 MG/DL 78 MG/DL Creatinine 1.42 MG/DL 1.38 MG/DL 1.51 MG/DL Random Glucose 111 MG/DL 131 MG/DL 174 MG/DL Total Protein 6.0 GM/DL 6.1 GM/DL 6.8 GM/DL Albumin 3.2 GM/DL 3.3 GM/DL 4.0 GM/DL Calcium Level 8.5 MG/DL 8.5 MG/DL 8.9 MG/DL Alkaline Phosphatase 72 U/L 75 U/L 93 U/L Aspartate Amino Transf (AST/SGOT) 26 U/L 21 U/L 26 U/L Alanine Aminotransferase (ALT/SGPT) 23 U/L 23 U/L 34 U/L Total Bilirubin 1.2 MG/DL 1.9 MG/DL 1.2 MG/DL Sodium Level 143 MEQ/L 143 MEQ/L 145 MEQ/L Potassium Level 3.9 MEQ/L 3.4 MEQ/L 3.4 MEQ/L Chloride Level 106 MEQ/L 106 MEQ/L 106 MEQ/L Carbon Dioxide Level 27.6 MEQ/L 28.8 MEQ/L 30.7 MEQ/L Anion Gap 9 MEQ/L 8 MEQ/L 8 MEQ/L Estimat Glomerular Filtration Rate 35 ML/MIN 36 ML/MIN 32 ML/MIN Phosphorus Level 2.7 MG/DL Magnesium Level 2.2 MG/DL 2.4 MG/DL Lactate Dehydrogenase 201 U/L Microbiology Date/Time Source Procedure Growth Status 06/28/17 09:00 Fluid Pleural Fluid Fungal Smear Pending Received 06/28/17 09:00 Fluid Pleural Fluid Fungal Culture Pending Received 06/28/17 09:00 Fluid Pleural Fluid Acid Fast Stain Pending Received 06/28/17 09:00 Fluid Pleural Fluid Mycobacterial Culture Pending Received 06/28/17 09:00 Fluid Pleural Fluid Gram Stain - Final Resulted 06/28/17 09:00 Fluid Pleural Fluid Body Fluid Culture - Preliminary NO GROWTH IN 48 HOURS. Resulted 06/27/17 15:03 Sputum Expectorated Sputum Gram Stain - Final Complete 06/27/17 15:03 Sputum Expectorated Sputum Sputum Culture - Final HEAVY GROWTH NORMAL RESPIRATORY TRUDY Complete Imaging Last Impressions Chest X-Ray 06/16/17 0400 Signed Impressions: Service Date/Time: Friday, June 16, 2017 04:10 - CONCLUSION: Worsening aeration in the left lung. Interval removal or dislodgment of right pigtail thoracostomy tube Alvin Walls MD Tunnelled Chest Tube Removal 06/13/17 0000 Signed Impressions: Service Date/Time: Tuesday, June 13, 2017 00:00 - CONCLUSION: Uncomplicated chest tube removal. Joselo Jennings MD Upper Extremity Ultrasound 06/07/17 0000 Signed Impressions: Service Date/Time: Wednesday, June 07, 2017 18:21 - CONCLUSION: 1. Limited exam but no deep venous thrombosis is identified bilaterally. Jamie Corrales MD Lower Extremity Ultrasound 06/07/17 Signed Impressions: Service Date/Time: Wednesday, June 07, 2017 17:57 - CONCLUSION: 1. Positive bilateral lower extremity deep venous thrombosis, nonocclusive as above. Jamie Corrales MD Head CT 06/07/17 Signed Impressions: Service Date/Time: Wednesday, June 07, 2017 17:01 - CONCLUSION: 1. No acute intracranial abnormality. 2. Extensive subcutaneous air tracking up from the chest. Luc Cain Jr., MD Cervical Spine CT 06/07/17 Signed Impressions: Service Date/Time: Wednesday, June 07, 2017 17:01 - CONCLUSION: 1. Extensive subcutaneous emphysema. 2. Tiny left apical pneumothorax. 3. Diffuse mild degenerative changes without central canal stenosis. Multilevel neural foraminal narrowing. 4. Prevertebral soft tissues obscured by an endotracheal tube and nasogastric tube. Luc Cain Jr., MD Chest Tube Insertion 06/05/17 Signed Impressions: Service Date/Time: May 09:15 - CONCLUSION: Uncomplicated chest tube placement as above. Maxwell Aldana MD Chest CT 06/05/17 Signed Impressions: Service Date/Time: May 08:47 - CONCLUSION: 1. Moderate left-sided hemothorax with associated left lower lobe consolidation which may reflect a combination of compressive atelectasis, aspiration, and potentially lung infarction given recent pulmonary artery embolization. 2. Trace right apical pneumothorax with large bore chest tube in the major fissure and smallbore chest tube in the soft tissues. Significant subcutaneous emphysema extending to the cervicothoracic junction bilaterally. 3. Airspace consolidation in the right lower lobe posteriorly may reflect aspiration. Maxwell Aldana MD Embolization 06/03/17 0000 Signed Impressions: Service Date/Time: Saturday, June 03, 2017 00:00 - CONCLUSION: Left pulmonary artery rupture with successful coil embolization of a lower lobe branch vessel as above. Joselo Jennings MD Abdomen X-Ray 06/03/17 Signed Impressions: Service Date/Time: [place], June 03, 2017 18:04 - CONCLUSION: Tip of the NG tube appears to be coiled in the stomach. Savana Valdovinos MD Physical Exam GENERAL: This is a well-nourished, well-developed patient, in no apparent distress. SKIN: No rashes, ecchymoses or lesions. Cool and dry. HEAD: Atraumatic. Normocephalic. No temporal or scalp tenderness. EYES: Pupils equal round and reactive. Extraocular motions intact. No scleral icterus. No injection or drainage. ENT: Intubated. NECK: Trachea midline. Supple, nontender, no meningeal signs. CARDIOVASCULAR: Murmur appreciated. RESPIRATORY: Clear to auscultation. Breath sounds diminished slightly in the bases. GASTROINTESTINAL: Abdomen soft, non-tender, nondistended. MUSCULOSKELETAL: Extremities without clubbing, cyanosis, or edema. No joint tenderness, effusion, or edema noted. No calf tenderness. Negative Homans sign bilaterally. NEUROLOGICAL: Sedated. Psych cooperative IV line sites with no evidence of infection. Assessment & Plan Remarks Sepsis(fever, tachycardia, source pneumonia,bacteremia) MRSA pneumonia in recent past Now concern for aspiration pneumonitis. Shayla albicans UTI, likely catheter associated: treated recently. Status post cardiac catheterization with ruptured pulmonary artery as complication Atrial fibrillation Pacemaker in place Recommendations Continue cefepime IV (covers PSAE) Follow cultures Follow clinically Discussed with RN as well as patient son and spouse in the room. d/w Son requests palliative care and transition to DNR. Will defer to primary team and cardiology. Dolores Segura MD Jun 30, 2017 14:30
--- NOTE | 2017-06-30 14:31 | PD.CARD.PN ---
Subjective Subjective Remarks Overnight events Aspiration Resp Failure Flash Pulmonary Edema afebrile weaning FIO2 Objective Medications Current Medications Medications (Trade) Dose Ordered Sig/Padmini Route Start Time Stop Time Status Last Admin (K-Lyte Cl Eff) 50 meq UNSCH PRN PO 06/03/17 19:15 (Mag-Ox) 800 mg UNSCH PRN PO 06/03/17 19:15 (K-Phos) 2,000 mg Q4H PRN PO 06/03/17 19:15 (K-Phos) 2,000 mg UNSCH PRN PO/TUBE 06/03/17 19:15 (D50w (Vial) Inj) 50 ml UNSCH PRN IV PUSH 06/04/17 12:15 (Glucagon Inj) 1 mg UNSCH PRN OTHER 06/04/17 12:15 (Lopressor Inj) 1.25 mg Q6H PRN IV PUSH 06/04/17 19:15 06/30/17 07:30 (Colace Liq) 100 mg Q12HR PO 06/05/17 14:00 06/30/17 08:51 (K-Lyte Cl Eff) 25 meq Q12HR PO 06/05/17 14:00 06/30/17 08:52 (Lanoxin) 0.125 mg DAILY PO 06/06/17 09:00 Future Hold 06/28/17 10:09 (Cozaar) 50 mg DAILY PO 06/07/17 09:00 Future hold 06/30/17 08:51 (Apresoline Inj) 20 mg Q4H PRN IV PUSH 06/07/17 08:00 06/30/17 05:35 (Synthroid) 50 mcg DAILY@0600 PO 06/07/17 08:00 06/30/17 05:36 (Pill Splitter) 1 ea UNSCH PRN OTHER 06/07/17 22:15 (NovoLOG SUPPLEMENTAL SCALE) 1 BID@0800,2000 SQ 06/08/17 20:00 06/30/17 08:49 (Mycostatin Liq) 5 ml QID SWISH-SWAL 06/12/17 13:00 06/30/17 12:06 (Pulmicort Respule Neb) 0.5 mg Q12HR NEB NEB 06/16/17 11:15 06/30/17 09:19 (Tylenol 650 Mg/ 20 ml Liq) 650 mg Q6H PRN PO 06/18/17 06:30 06/26/17 05:11 Pharmacy Profile Note 0 ml @ 0 mls/hr UNSCH OTHER 06/20/17 10:00 (Zofran Inj) 4 mg Q6H PRN IV PUSH 06/22/17 19:30 06/23/17 08:40 (Cardizem) 90 mg Q6HR PO 06/23/17 12:00 Future Hold 06/27/17 12:14 (Mucinex Er) 600 mg BID PO 06/23/17 10:15 06/30/17 08:51 (Reglan Inj) 5 mg Q8HR IV PUSH 06/23/17 17:45 06/30/17 13:35 (Miralax) 17 gm DAILY PO 06/25/17 09:45 06/30/17 08:52 (Melatonin) 5 mg HS PRN PO 06/25/17 16:15 Albumin Human 100 ml @ 60 mls/hr Q12H IV 06/26/17 18:00 06/30/17 05:35 (Peridex 0.12% Liq) 15 ml BID@08,20 MT 06/27/17 20:00 06/30/17 08:00 (SoluMEDROL INJ) 40 mg Q8HR IV PUSH 06/28/17 14:00 06/30/17 13:26 Propofol 100 ml @ 1.59 mls/hr TITRATE PRN IV 06/28/17 10:00 06/29/17 09:21 Potassium Chloride 100 ml @ 50 mls/hr Q2H PRN IV 06/28/17 11:00 Potassium Chloride 100 ml @ 50 mls/hr Q2H PRN IV 06/28/17 11:00 06/28/17 12:32 (K-Lyte Cl Eff) 50 meq UNSCH PRN PO 06/28/17 11:00 Potassium Chloride 100 ml @ 25 mls/hr UNSCH PRN IV 06/28/17 11:00 06/30/17 06:06 Potassium Chloride 100 ml @ 50 mls/hr Q2H PRN IV 06/28/17 11:00 06/29/17 05:35 Magnesium Sulfate 4 gm/Sodium Chloride 100 ml @ 50 mls/hr UNSCH PRN IV 06/28/17 11:00 (Mag-Ox) 800 mg UNSCH PRN PO 06/28/17 11:00 Magnesium Sulfate 2 gm/Sodium Chloride 100 ml @ 50 mls/hr UNSCH PRN IV 06/28/17 11:00 (K-Phos) 2,000 mg Q4H PRN PO 06/28/17 11:00 Sodium Phosphate 30 mmol/Sodium Chloride 250 ml @ 42 mls/hr UNSCH PRN IV 06/28/17 11:00 (K-Phos) 2,000 mg UNSCH PRN PO/TUBE 06/28/17 11:00 Potassium Phosphate 30 mmol/ Sodium Chloride 260 ml @ 42 mls/hr UNSCH PRN IV 06/28/17 11:00 (Protonix Inj) 40 mg Q12H IV PUSH 06/28/17 21:00 06/30/17 08:50 (Apresoline Inj) 20 mg Q4H PRN IV PUSH 06/28/17 18:00 06/29/17 22:48 Cefepime HCl 1000 mg/Sodium Chloride 100 ml @ 200 mls/hr Q12HR IV 06/29/17 09:00 06/30/17 08:50 (Atrovent Neb) 0.5 mg Q6HR NEB NEB 06/29/17 16:00 06/30/17 09:19 (Lasix Inj) 20 mg BID@,18 IV PUSH 06/29/17 18:00 06/29/18 12:00 06/30/17 06:53 (Promacta) 50 mg DAILY@1000 PO 06/30/17 10:00 06/30/17 08:51 Dexmedetomidine HCl 200 mcg/ Sodium Chloride 50 ml @ 2.85 mls/hr TITRATE PRN IV 06/29/17 19:00 06/30/17 13:28 (Apresoline) 50 mg Q8HR PO 06/30/17 06:45 06/30/17 13:25 (Catapres) 0.2 mg Q6H PRN PO 06/30/17 08:00 06/30/17 12:06 (Coumadin) 2 mg DAILY@1600 PO 06/30/17 16:00 (Lopressor) 100 mg BID PO 06/30/17 21:00 Vital Signs / I&O Vital Signs Date Time Temp Pulse Resp B/P (MAP) Pulse Ox O2 Delivery O2 Flow Rate FiO2 06/30/17 11:00 98.6 89 24 171/81 (111) 98 197/84 (121) 06/30/17 11:00 83 06/30/17 11:00 98 Mechanical Ventilator 40 06/30/17 11:00 40 06/30/17 10:38 96 40 06/30/17 09:00 97 40 06/30/17 08:00 98 40 06/30/17 07:00 98 Mechanical Ventilator 40 06/30/17 07:00 40 06/30/17 07:00 40 06/30/17 07:00 97.9 80 28 150/73 (98) 98 196/87 (123) 06/30/17 07:00 80 06/30/17 04:06 97 40 06/30/17 03:00 98.6 89 0 185/71 (109) 97 153/76 (101) 06/30/17 03:00 86 06/30/17 03:00 40 06/30/17 03:00 Mechanical Ventilator 40 06/30/17 01:03 98 40 06/29/17 23:19 98 40 06/29/17 23:00 98.3 73 0 169/82 (111) 98 168/83 (111) 06/29/17 23:00 98 06/29/17 23:00 Mechanical Ventilator 40 06/29/17 23:00 40 06/29/17 20:47 98 40 06/29/17 19:00 98 06/29/17 19:00 98.6 69 0 156/79 (104) 98 160/82 (108) 06/29/17 19:00 Mechanical Ventilator 40 06/29/17 19:00 40 06/29/17 16:49 97 40 06/29/17 15:00 97.9 82 20 149/68 (95) 98 164/64 (97) 06/29/17 15:00 72 06/29/17 15:00 40 06/29/17 15:00 97 Mechanical Ventilator 40 I/O 06/29/17 06/29/17 06/29/17 06/30/17 06/30/17 06/30/17 07:00 15:00 23:00 07:00 15:00 23:00 Intake Total 400 ml 300 ml 847 ml 300 ml Output Total 1725 ml 1050 ml 1400 ml Balance -1325 ml 300 ml -203 ml -1100 ml IV Total 300 ml 300 ml 445 ml Tube Feeding 62 ml 300 ml Tube Irrigant 240 ml Other 100 ml 100 ml Output Urine Total 1650 ml 1050 ml 1400 ml Gastric Drainage Total 75 ml 0 ml Bladder Scan Volume Amount 0 ml 0 ml 0 ml # Bowel Movements 1 1 2 Physical Exam GENERAL: Intubated, pupils reactive, Alert, awake, oriented SKIN: Warm and dry. HEAD: Normocephalic. EYES: No scleral icterus. No injection or drainage. NECK: Supple, trachea midline. No JVD or lymphadenopathy. CARDIOVASCULAR: Irr Irr 2/6SEM no gallops, or rubs. RESPIRATORY: Vented. GASTROINTESTINAL: Abdomen soft, non-tender, nondistended. EXTREMITIES: No cyanosis, or edema. Laboratory Laboratory Tests Test 06/30/17 02:36 White Blood Count 8.8 TH/MM3 Red Blood Count 4.00 MIL/MM3 Hemoglobin 11.4 GM/DL Hematocrit 34.2 % Mean Corpuscular Volume 85.5 FL Mean Corpuscular Hemoglobin 28.6 PG Mean Corpuscular Hemoglobin Concent 33.4 % Red Cell Distribution Width 17.3 % Platelet Count 30 TH/MM3 Mean Platelet Volume 8.8 FL Neutrophils (%) (Auto) 91.5 % Lymphocytes (%) (Auto) 2.3 % Monocytes (%) (Auto) 6.1 % Eosinophils (%) (Auto) 0.0 % Basophils (%) (Auto) 0.1 % Neutrophils # (Auto) 8.1 TH/MM3 Lymphocytes # (Auto) 0.2 TH/MM3 Monocytes # (Auto) 0.5 TH/MM3 Eosinophils # (Auto) 0.0 TH/MM3 Basophils # (Auto) 0.0 TH/MM3 CBC Comment AUTO DIFF Differential Comment AUTO DIFF CONFIRMED Prothrombin Time 16.8 SEC Prothromb Time International Ratio 1.5 RATIO Blood Urea Nitrogen 78 MG/DL Creatinine 1.51 MG/DL Random Glucose 174 MG/DL Total Protein 6.8 GM/DL Albumin 4.0 GM/DL Calcium Level 8.9 MG/DL Magnesium Level 2.4 MG/DL Alkaline Phosphatase 93 U/L Aspartate Amino Transf (AST/SGOT) 26 U/L Alanine Aminotransferase (ALT/SGPT) 34 U/L Total Bilirubin 1.2 MG/DL Sodium Level 145 MEQ/L Potassium Level 3.4 MEQ/L Chloride Level 106 MEQ/L Carbon Dioxide Level 30.7 MEQ/L Anion Gap 8 MEQ/L Estimat Glomerular Filtration Rate 32 ML/MIN Imaging Last 24 hours Impressions Chest X-Ray 06/30/17 0600 Signed Impressions: Service Date/Time: Friday, June 30, 2017 04:53 - CONCLUSION: Pacemaker and tubes and catheters all in good position. The NG tube could be advanced. Minimal infiltrate remains right lung base. Domingo Claire MD Assessment and Plan Problem List: (1) Respiratory failure ICD Codes: J96.90 - Respiratory failure, unspecified, unspecified whether with hypoxia or hypercapnia Plan: Aspiration PNA UTI Severe ITP ENZO Diastolic Dysfunction Improve from respiratory standpoint. Sedated intubated. Weaning FIO2. s/p thoracentesis ENZO Flash pulmonary edema and HF decompensated multifactorial however she does have significant , afib, HTN that was not adequately control in the floor and difficulty swallowing. Given that her respiratory status in significantly improved I think reasonable to start doing CPAP trials and try to extubate when she i ready. After long discussion with family. They agree to make her DNR. Recommendations: Aspiration precautions Antx per ID Follow CBC. No active signs of bleeding Aggressive medical management for Afib/rate control and HTN Hold diuresis F/U Plt Case discuss with family, ID and [employer] (2) Shock, postoperative ICD Codes: T81.10XA - Postprocedural shock unspecified, initial encounter Status: Resolved (3) Pulmonary arterial thrombosis ICD Codes: I26.99 - Other pulmonary embolism without acute cor pulmonale Status: Acute (4) CAD (coronary artery disease) ICD Codes: I25.10 - Atherosclerotic heart disease of [place] coronary artery without angina pectoris (5) Aortic stenosis ICD Codes: I35.0 - Nonrheumatic aortic (valve) stenosis (6) DVT (deep venous thrombosis) ICD Codes: I82.409 - Acute embolism and thrombosis of unspecified deep veins of unspecified lower extremity Problem Qualifiers (1) Respiratory failure: Qualified Codes: J96.01 - Acute respiratory failure with hypoxia Brad Page MD Jun 30, 2017 14:31
[2017-06-30] MEDS ORDERED: WARFARIN SOD 2 MG TAB PO SCH (16:00)
[2017-06-30] MEDS: METOPROLOL TARTRATE 100 MG TAB PO SCH (21:02)
[2017-07-01] VITALS (17 sets, daily range): BP systolic 158–188; BP diastolic 62–87; PULSE 76–95; RESP 14–51; TEMP 97.9–98.7; O2SAT 95–99
[2017-07-01] MEDS: RESP: IPRATROPIUM 0.5 MG/2.5 ML NEB NEB SCH ×3 (04:02→21:01)
[2017-07-01 05:01] LABS: INTERNATIONAL NORMALIZED RATIO 1.5 RATIO; PROTHROMBIN TIME - PATIENT 16.8 SEC (9.8-11.6)
[2017-07-01 05:09] LABS: AUTOMATED NEUTROPHIL # 5.1 TH/MM3 (1.8-7.7); HEMATOCRIT 31.9 % (35.0-46.0); LYMPH % 5.4 % (9.0-44.0); LYMPHOCYTE # 0.3 TH/MM3 (1.0-4.8); MEAN CELL VOLUME 85.6 FL (80.0-100.0); MEAN CORPUSCULAR HEMOGLOBIN 28.6 PG (27.0-34.0); MEAN CORPUSCULAR HGB CONC 33.4 % (32.0-36.0); NEUT % 82.6 % (16.0-70.0); RED BLOOD COUNT 3.73 MIL/MM3 (4.00-5.30); WHITE BLOOD COUNT 6.2 TH/MM3 (4.0-11.0)
[2017-07-01 05:27] LABS: ALKALINE PHOSPHATASE 108 U/L (45-117); ALT (GPT) 31 U/L (10-53); ANION GAP 7 MEQ/L (5-15); AST (GOT) 21 U/L (15-37); BICARBONATE 32.8 MEQ/L (21.0-32.0); BLOOD UREA NITROGEN 91 MG/DL (7-18); CHLORIDE 109 MEQ/L (98-107); GLOMERULAR FILTRATION RATE 36 ML/MIN (>89); MAGNESIUM 2.4 MG/DL (1.5-2.5); POTASSIUM 3.4 MEQ/L (3.5-5.1); SODIUM (NA) 149 MEQ/L (136-145)
[2017-07-01 05:36] LABS: HEMO FLAGS AUTO DIFF
[2017-07-01 05:38] LABS: PLATELET COUNT 16 TH/MM3 (150-450)
[2017-07-01] MEDS: METOCLOPRAMIDE HCL 10 MG/2 ML VIAL IV PUSH SCH ×3 (05:56→22:00)
[2017-07-01] MEDS: ALBUMIN 25% INJ 100 ML IV SCH ×2 (05:56→17:08)
[2017-07-01] MEDS: hydrALAZINE HCL 50 MG TAB PO SCH ×3 (05:56→22:21)
[2017-07-01] MEDS: LEVOTHYROXINE SODIUM 50 MCG TAB PO SCH (05:56)
--- NOTE | 2017-07-01 06:15 | RADRPT ---
EXAM DATE/TIME: 07/01/2017 05:19 [facility] COMPARISON: CHEST SINGLE AP, June 30, 2017, 4:53. CHEST SINGLE AP, June 29, 2017, 4:52. INDICATIONS : Respiratory distress. MEDICAL HISTORY : Hypercholesterolemia. Hypothyroidism. Congestive heart failure. SURGICAL HISTORY : Tonsillectomy. Pacemaker. ventral hernia repair, Right thoracentesis. ENCOUNTER: Subsequent ACUITY: 3 weeks PAIN SCORE: Non-responsive. LOCATION: Bilateral chest FINDINGS: A single view of the chest demonstrates the endotracheal, nasogastric tube and left subclavian bipola r pacer in good position. Bilateral pleural effusions left greater than right. Airspace disease throu ghout the right lung. Embolization coil remains over the heart. The cardiomediastinal contours are u nremarkable. Osseous structures are intact. CONCLUSION: Tubes and catheters are in good position. Worsening infiltrate throughout the right lung since previo us study. Moderate left pleural effusion is unchanged. Domingo Claire MD on July 01, 2017 at 6:12 Board Certified Radiologist. This report was verified electronically.
[2017-07-01] MEDS: POTASSIUM CHLOR 20 MEQ PREMIX 100 ML IV PRN (06:50)
[2017-07-01] MEDS: CHLORHEXIDINE 0.12% (ORAL KIT) 15 ML CUP MT SCH ×2 (07:48→20:00)
[2017-07-01] MEDS: RESP: BUDESONIDE 0.5 MG/2 ML NEB NEB SCH ×2 (08:07→23:03)
[2017-07-01] MEDS: NYSTATIN SUSP 500,000 U/5 ML CUP SWISH-SWAL SCH ×4 (08:12→20:25)
[2017-07-01] MEDS: methylPREDNISolone SOD SUCC 40 MG/1 ML VIAL IV PUSH SCH ×2 (08:13→20:23)
[2017-07-01] MEDS: POLYETHYLENE GLYCOL 17 GM PKG PO SCH (08:13)
[2017-07-01] MEDS: POTASSIUM CHLORIDE 25 MEQ EFFERVESCENT TAB PO SCH ×2 (08:13→20:24)
[2017-07-01] MEDS: LOSARTAN 50 MG TAB PO SCH (08:13)
[2017-07-01] MEDS: DOCUSATE SODIUM 100 MG/10 ML UDC PO SCH ×2 (08:13→20:23)
[2017-07-01] MEDS: METOPROLOL TARTRATE 100 MG TAB PO SCH ×2 (08:13→20:24)
[2017-07-01] MEDS: PANTOPRAZOLE SODIUM 40 MG VIAL IV PUSH SCH ×2 (08:15→20:23)
[2017-07-01] MEDS: INSULIN ASPART SUPPLEMENTAL SCALE SQ SCH ×2 (08:17→20:00)
[2017-07-01] MEDS: CEFEPIME 1000 MG/NS 100 ML IV SCH ×4 (08:18→20:23)
[2017-07-01 08:27] LABS: BANDS 2 % (0-6); METAMYELOCYTES 1 % (0-1); NEUTROPHIL # MANUAL DIFF 5.3 TH/MM3 (1.8-7.7); PLATELET ESTIMATE SMEAR RARE (NORMAL); PLATELET MORPHOLOGY NORMAL (NORMAL); POLYS (SEG NEUTROPHILS) 82 % (16-70); SCAN/DIFF FINAL DIFF MANUAL; WBC DIFF SAMPLE 100
[2017-07-01] MEDS: cloNIDine HCL 0.2 MG TAB PO PRN (09:11)
[2017-07-01] MEDS: ELTROMBOPAG 50 MG TAB PO SCH (09:11)
[2017-07-01] MEDS: guaiFENesin E.R. 600 MG TAB PO SCH ×2 (09:11→20:24)
--- NOTE | 2017-07-01 12:40 | PD.ONC.PN ---
Subjective Subjective Remarks Afebrile overnight. Patient intubated, sedated. Possible extubation today. Objective Data Date Time Temp Pulse Resp B/P (MAP) Pulse Ox O2 Delivery O2 Flow Rate FiO2 07/01/17 09:25 98 40 07/01/17 08:07 99 40 07/01/17 08:07 40 07/01/17 07:00 40 07/01/17 07:00 98.1 95 15 166/84 (111) 98 179/72 (107) 07/01/17 07:00 98 Mechanical Ventilator 40 07/01/17 07:00 86 07/01/17 04:02 98 40 07/01/17 03:19 40 07/01/17 03:17 97.9 83 18 165/84 (111) 98 179/62 (101) 07/01/17 03:17 97 Mechanical Ventilator 40 07/01/17 03:17 76 06/30/17 23:30 40 06/30/17 23:14 97 Mechanical Ventilator 40 06/30/17 23:14 82 06/30/17 23:14 98.0 88 18 144/66 (92) 97 175/79 (111) 06/30/17 21:00 40 06/30/17 20:20 98 40 06/30/17 19:24 97 Mechanical Ventilator 40 06/30/17 19:24 97.9 81 18 163/76 (105) 97 183/75 (111) 06/30/17 19:02 40 06/30/17 19:00 82 06/30/17 16:20 98 40 06/30/17 15:00 82 06/30/17 15:00 99 Mechanical Ventilator 40 06/30/17 15:00 97.5 76 22 195/86 (122) 99 146/74 (98) 06/30/17 15:00 40 07/01/17 07/01/17 07/01/17 07:00 15:00 23:00 Intake Total 435 ml Output Total 1700 ml Balance -1265 ml Result Diagram: 07/01/1742407/01/175 Laboratory Results Laboratory Tests Test 07/01/17 04:25 White Blood Count 6.2 TH/MM3 Red Blood Count 3.73 MIL/MM3 Hemoglobin 10.7 GM/DL Hematocrit 31.9 % Mean Corpuscular Volume 85.6 FL Mean Corpuscular Hemoglobin 28.6 PG Mean Corpuscular Hemoglobin Concent 33.4 % Red Cell Distribution Width 17.0 % Platelet Count 16 TH/MM3 Mean Platelet Volume 8.8 FL Neutrophils (%) (Auto) 82.6 % Lymphocytes (%) (Auto) 5.4 % Monocytes (%) (Auto) 12.0 % Eosinophils (%) (Auto) 0.0 % Basophils (%) (Auto) 0.0 % Neutrophils # (Auto) 5.1 TH/MM3 Lymphocytes # (Auto) 0.3 TH/MM3 Monocytes # (Auto) 0.7 TH/MM3 Eosinophils # (Auto) 0.0 TH/MM3 Basophils # (Auto) 0.0 TH/MM3 CBC Comment AUTO DIFF Differential Total Cells Counted 100 Neutrophils % (Manual) 82 % Band Neutrophils % 2 % Lymphocytes % 4 % Monocytes % 11 % Neutrophils # (Manual) 5.3 TH/MM3 Metamyelocytes 1 % Differential Comment FINAL DIFF MANUAL Platelet Estimate RARE Platelet Morphology Comment NORMAL Prothrombin Time 16.8 SEC Prothromb Time International Ratio 1.5 RATIO Blood Urea Nitrogen 91 MG/DL Creatinine 1.39 MG/DL Random Glucose 156 MG/DL Total Protein 6.4 GM/DL Albumin 3.8 GM/DL Calcium Level 8.9 MG/DL Magnesium Level 2.4 MG/DL Alkaline Phosphatase 108 U/L Aspartate Amino Transf (AST/SGOT) 21 U/L Alanine Aminotransferase (ALT/SGPT) 31 U/L Total Bilirubin 1.0 MG/DL Sodium Level 149 MEQ/L Potassium Level 3.4 MEQ/L Chloride Level 109 MEQ/L Carbon Dioxide Level 32.8 MEQ/L Anion Gap 7 MEQ/L Estimat Glomerular Filtration Rate 36 ML/MIN Imaging Studies Last 24 hours Impressions Chest X-Ray 07/01/17 0600 Signed Impressions: Service Date/Time: Saturday, July 01, 2017 05:19 - CONCLUSION: Tubes and catheters are in good position. Worsening infiltrate throughout the right lung since previous study. Moderate left pleural effusion is unchanged. Domingo Claire MD Administered Medications Medications (Trade) Dose Ordered Sig/Padmini Route PRN Reason Start Time Stop Time Status Last Admin Dose Admin Metoprolol Tartrate (Lopressor Inj) 1.25 mg Q6H PRN IV PUSH SBP > 170 + HR > 100 06/04/17 19:15 06/30/17 07:30 Docusate Sodium (Colace Liq) 100 mg Q12HR PO 06/05/17 14:00 07/01/17 08:13 Potassium Bicarb/ Potassium Chloride (K-Lyte Cl Eff) 25 meq Q12HR PO 06/05/17 14:00 07/01/17 08:13 Digoxin (Lanoxin) 0.125 mg DAILY PO 06/06/17 09:00 Future Hold 06/28/17 10:09 Losartan Potassium (Cozaar) 50 mg DAILY PO 06/07/17 09:00 Future hold 07/01/17 08:13 Hydralazine HCl (Apresoline Inj) 20 mg Q4H PRN IV PUSH SYS BP GREATER THAN 160 MMHG 06/07/17 08:00 06/30/17 17:01 Levothyroxine Sodium (Synthroid) 50 mcg DAILY@0600 PO 06/07/17 08:00 07/01/17 05:56 Insulin Aspart (NovoLOG SUPPLEMENTAL SCALE) 1 BID@0800,2000 SQ 06/08/17 20:00 07/01/17 08:17 Nystatin (Mycostatin Liq) 5 ml QID SWISH-SWAL 06/12/17 13:00 07/01/17 08:12 Budesonide (Pulmicort Respule Neb) 0.5 mg Q12HR NEB NEB 06/16/17 11:15 07/01/17 08:07 Acetaminophen (Tylenol 650 Mg/ 20 ml Liq) 650 mg Q6H PRN PO PAIN 1-10/ FEVER > 101.5 06/18/17 06:30 06/26/17 05:11 Ondansetron HCl (Zofran Inj) 4 mg Q6H PRN IV PUSH NAUSEA OR VOMITING 06/22/17 19:30 06/23/17 08:40 Diltiazem HCl (Cardizem) 90 mg Q6HR PO 06/23/17 12:00 Future Hold 06/27/17 12:14 Guaifenesin (Mucinex Er) 600 mg BID PO 06/23/17 10:15 07/01/17 09:11 Metoclopramide HCl (Reglan Inj) 5 mg Q8HR IV PUSH 06/23/17 17:45 07/01/17 05:56 Polyethylene Glycol (Miralax) 17 gm DAILY PO 06/25/17 09:45 07/01/17 08:13 Albumin Human 100 ml @ 60 mls/hr Q12H IV 06/26/17 18:00 07/01/17 05:56 Chlorhexidine Gluconate (Peridex 0.12% Liq) 15 ml BID@08,20 MT 06/27/17 20:00 07/01/17 07:48 Potassium Chloride 100 ml @ 50 mls/hr Q2H PRN IV For Potassium 2.8 - 3.2 mEq/L 06/28/17 11:00 06/28/17 12:32 Potassium Chloride 100 ml @ 25 mls/hr UNSCH PRN IV For Potassium 3.3 - 3.5 mEq/L 06/28/17 11:00 06/30/17 06:06 Potassium Chloride 100 ml @ 50 mls/hr Q2H PRN IV For Potassium 3.3 - 3.5 mEq/L 06/28/17 11:00 07/01/17 06:50 Pantoprazole Sodium (Protonix Inj) 40 mg Q12H IV PUSH 06/28/17 21:00 07/01/17 08:15 Hydralazine HCl (Apresoline Inj) 20 mg Q4H PRN IV PUSH SBP >170 06/28/17 18:00 06/29/17 22:48 Cefepime HCl 1000 mg/Sodium Chloride 100 ml @ 200 mls/hr Q12HR IV 06/29/17 09:00 07/01/17 08:18 Ipratropium [place] (Atrovent Neb) 0.5 mg Q6HR NEB NEB 06/29/17 16:00 07/01/17 04:02 Eltrombopag (Promacta) 50 mg DAILY@1000 PO 06/30/17 10:00 07/01/17 09:11 Dexmedetomidine HCl 200 mcg/ Sodium Chloride 50 ml @ 2.85 mls/hr TITRATE PRN IV Desired RASS 06/29/17 19:00 06/30/17 13:28 Hydralazine HCl (Apresoline) 50 mg Q8HR PO 06/30/17 06:45 07/01/17 05:56 Clonidine (Catapres) 0.2 mg Q6H PRN PO SYS BP GREATER THAN 160 MMHG 06/30/17 08:00 07/01/17 09:11 Metoprolol Tartrate (Lopressor) 100 mg BID PO 06/30/17 21:00 07/01/17 08:13 Methylprednisolone Sodium Succinate (SoluMEDROL INJ) 40 mg Q12HR IV PUSH 06/30/17 21:00 07/01/17 08:13 Objective Remarks GENERAL: Elderly female supine in bed, intubated SKIN: Warm and dry. HEAD: Normocephalic. EYES: No injection or drainage. NECK: Supple, trachea midline. CARDIOVASCULAR: +S1/S2 RESPIRATORY: anterior huston with occasional rhonchi. on mechanical ventilation. GASTROINTESTINAL: Abdomen soft, non-tender, nondistended. EXTREMITIES: No cyanosis NEUROLOGICALintubated, sedated Assessment/Plan Problem List: (1) Chronic ITP (idiopathic thrombocytopenia) ICD Codes: D69.3 - Immune thrombocytopenic purpura Plan: --acute drop in platelet count likely from acute illness, DIC, and consumption. --on Promacta 50 mg daily. --recommend transfusing for platelets less than 20k. --If the family does opt for valvuloplasty would recommend giving 2 units platelets prior and also to hang one during the procedure. --Thrombocytopenia due to sepsis/acute illness--also with hx of ITP --will avoid IVIG due to recent hx of DVT (2) CAD (coronary artery disease) ICD Codes: I25.10 - Atherosclerotic heart disease of [place] coronary artery without angina pectoris Plan: -- Undergone left and right heart catheterization for her TAVR evaluation. -- After right heart cath, she developed acute massive hemoptysis with shock secondary to acute rupture of pulmonary artery. -- She underwent cardiac cath which identified bleeding from a small branch of the left pulmonary artery. Six coils were placed in the left lower artery. The patient was subsequently extubated. However, her respiratory status declined yesterday. She was on BiPap. She was again intubated due to worsening hypoxemic respiratory failure. -- There are plans for valvuloplasty on Friday; however the patient's son and spouse are contemplating comfort care only. (3) DVT (deep venous thrombosis) ICD Codes: I82.409 - Acute embolism and thrombosis of unspecified deep veins of unspecified lower extremity Plan: --no anticoagulation for now due to thrombocytopenia until sustained platelet count of = >35,000 is achieved Assessment 89-year-old female with history of severe aortic stenosis underwent left and right heart catheterization for her TAVR evaluation. After right heart cath, she developed acute massive hemoptysis with shock secondary to acute rupture of pulmonary artery. She was intubated. She became hypotensive and started on dopamine and Shantanu-Synephrine. Levophed was also added. She was a given blood product support with three units of packed red blood cells, two units of FFP, and one unit of platelets. She also developed a V-tach and V-fib and received brief CPR. She was DC cardioverted x1 and returned to spontaneous circulation and sinus rhythm. A PARVIN was performed which showed vigorous LV contraction but the cavity was empty. She received continuous massive fluid resuscitation with multiple crystalloid boluses bicarbonate and calcium. She underwent cardiac cath which identified bleeding from a small branch of the left pulmonary artery. Six coils were placed in the left lower artery. The patient was subsequently extubated. However, her respiratory status declined and she was reintubated. Plan 1. monitor CBC 2. transfuse 1 unit platelets for platelet count of 16K. 3. no anticoagulation until platelet count greater than or equal to 35K. Attending Statement The exam, history, and the medical decision-making described in the above note were completed with the assistance of the mid-level provider. I reviewed and agree with the findings presented. I attest that I had a [id number] encounter with the patient on the same day, and personally performed and documented my assessment and findings in the medical record remains critically ill family considering hospice drop in platelets today transfuse 1 unit of PLTs On Promacta 50 mg daily no anticoagulation --severe thrombocytopenia check coags and fibrinogen in am can taper down steroids d/w rn o/n events reviewed Problem Qualifiers (1) DVT (deep venous thrombosis): Jo Maldonado Jul 01, 2017 12:40 Lucius Ortega MD Jul 02, 2017 00:07
[2017-07-01] MEDS ORDERED: SODIUM CHLOR 0.9% 250 ML INJ 250 ML IV ONE (12:45)
--- NOTE | 2017-07-01 13:16 | HHI.GIFU ---
Subjective Remarks Pt intubated. Family at bedside. TF running @ GR 40ml/hr. + BM. Family does not wish to pursue PEG tube at this time. (Fina Tavera) Objective Vitals I&O Vital Signs Date Time Temp Pulse Resp B/P (MAP) Pulse Ox O2 Delivery O2 Flow Rate FiO2 07/01/17 09:25 98 40 07/01/17 08:07 99 40 07/01/17 08:07 40 07/01/17 07:00 40 07/01/17 07:00 98.1 95 15 166/84 (111) 98 179/72 (107) 07/01/17 07:00 98 Mechanical Ventilator 40 07/01/17 07:00 86 07/01/17 04:02 98 40 07/01/17 03:19 40 07/01/17 03:17 97.9 83 18 165/84 (111) 98 179/62 (101) 07/01/17 03:17 97 Mechanical Ventilator 40 07/01/17 03:17 76 06/30/17 23:30 40 06/30/17 23:14 97 Mechanical Ventilator 40 06/30/17 23:14 82 06/30/17 23:14 98.0 88 18 144/66 (92) 97 175/79 (111) 06/30/17 21:00 40 06/30/17 20:20 98 40 06/30/17 19:24 97 Mechanical Ventilator 40 06/30/17 19:24 97.9 81 18 163/76 (105) 97 183/75 (111) 06/30/17 19:02 40 06/30/17 19:00 82 06/30/17 16:20 98 40 06/30/17 15:00 82 06/30/17 15:00 99 Mechanical Ventilator 40 06/30/17 15:00 97.5 76 22 195/86 (122) 99 146/74 (98) 06/30/17 15:00 40 I/O 06/30/17 06/30/17 06/30/17 07/01/17 07/01/17 07/01/17 07:00 15:00 23:00 07:00 15:00 23:00 Intake Total 300 ml 690 ml 435 ml Output Total 1400 ml 1500 ml 1700 ml Balance -1100 ml -810 ml -1265 ml IV Total 235 ml 35 ml Tube Feeding 300 ml 255 ml Albumin 100 ml Other 100 ml 400 ml Output Urine Total 1400 ml 1500 ml 1700 ml Bladder Scan Volume Amount 0 ml # Bowel Movements 2 2 1 Laboratory Laboratory Tests Test 07/01/17 04:25 White Blood Count 6.2 Red Blood Count 3.73 Hemoglobin 10.7 Hematocrit 31.9 Mean Corpuscular Volume 85.6 Mean Corpuscular Hemoglobin 28.6 Mean Corpuscular Hemoglobin Concent 33.4 Red Cell Distribution Width 17.0 Platelet Count 16 Mean Platelet Volume 8.8 Neutrophils (%) (Auto) 82.6 Lymphocytes (%) (Auto) 5.4 Monocytes (%) (Auto) 12.0 Eosinophils (%) (Auto) 0.0 Basophils (%) (Auto) 0.0 Neutrophils # (Auto) 5.1 Lymphocytes # (Auto) 0.3 Monocytes # (Auto) 0.7 Eosinophils # (Auto) 0.0 Basophils # (Auto) 0.0 CBC Comment AUTO DIFF Differential Total Cells Counted 100 Neutrophils % (Manual) 82 Band Neutrophils % 2 Lymphocytes % 4 Monocytes % 11 Neutrophils # (Manual) 5.3 Metamyelocytes 1 Differential Comment FINAL DIFF MANUAL Platelet Estimate RARE Platelet Morphology Comment NORMAL Prothrombin Time 16.8 Prothromb Time International Ratio 1.5 Blood Urea Nitrogen 91 Creatinine 1.39 Random Glucose 156 Total Protein 6.4 Albumin 3.8 Calcium Level 8.9 Magnesium Level 2.4 Alkaline Phosphatase 108 Aspartate Amino Transf (AST/SGOT) 21 Alanine Aminotransferase (ALT/SGPT) 31 Total Bilirubin 1.0 Sodium Level 149 Potassium Level 3.4 Chloride Level 109 Carbon Dioxide Level 32.8 Anion Gap 7 Estimat Glomerular Filtration Rate 36 Date/Time Source Procedure Growth Status 06/26/17 21:38 Blood Peripheral Aerobic Blood Culture - Final NO GROWTH IN 5 DAYS Complete 06/26/17 21:38 Blood Peripheral Anaerobic Blood Culture - Final NO GROWTH IN 5 DAYS Complete 06/28/17 09:00 Fluid Pleural Fluid Fungal Smear - Final NO FUNGAL ELEMENTS SEEN. Resulted 06/28/17 09:00 Fluid Pleural Fluid Fungal Culture Pending Resulted 06/09/17 09:45 Stool Stool Stool Occult Blood (KIM) - Final HEMOCCULT POSITIVE Complete 06/27/17 15:03 Sputum Expectorated Sputum Gram Stain - Final Complete 06/27/17 15:03 Sputum Expectorated Sputum Sputum Culture - Final HEAVY GROWTH NORMAL RESPIRATORY TRUDY Complete 06/27/17 01:30 Urine Catheterized Urine Urine Culture - Final NO GROWTH IN 48 HOURS. Complete 06/12/17 13:20 Catheter Tip Central Venous Line Wound Culture - Final NO GROWTH IN 48 HOURS. Complete Imaging Last Impressions Chest X-Ray 07/01/17 0600 Signed Impressions: Service Date/Time: Saturday, July 01, 2017 05:19 - CONCLUSION: Tubes and catheters are in good position. Worsening infiltrate throughout the right lung since previous study. Moderate left pleural effusion is unchanged. Domingo Claire MD Chest CTA 06/27/17 2100 Signed Impressions: Service Date/Time: Wednesday, June 28, 2017 11:33 - CONCLUSION: 1. Limited exam without IV contrast. Aortic root measurements as above. 2. Dense calcification of the mitral valve annulus and the aortic valve. Dense calcification of the coronary arteries. 3. Distal to the embolic coils in the left lower lobe, there is a left basilar consolidation with associated small effusion. 4. On the right, there is patchy airspace disease. Pattern is concerning for possible pneumonic infiltrate. 5. Generalized anasarca may indicate some right heart insufficiency. Joselo Jennings MD Abdomen X-Ray 06/27/17 0000 Signed Impressions: Service Date/Time: Tuesday, June 27, 2017 09:42 - CONCLUSION: Negative for ileus or obstruction. Rajesh Rincon MD FACR Renal Ultrasound 06/26/17 0000 Signed Impressions: Service Date/Time: June 08:51 - CONCLUSION: Normal examination. Alvin Walls MD Tunnelled Chest Tube Removal 06/13/17 0000 Signed Impressions: Service Date/Time: Tuesday, June 13, 2017 00:00 - CONCLUSION: Uncomplicated chest tube removal. Joselo Jennings MD Upper Extremity Ultrasound 06/07/17 0000 Signed Impressions: Service Date/Time: Wednesday, June 07, 2017 18:21 - CONCLUSION: 1. Limited exam but no deep venous thrombosis is identified bilaterally. Jamie Corrales MD Lower Extremity Ultrasound 06/07/17 0000 Signed Impressions: Service Date/Time: Wednesday, June 07, 2017 17:57 - CONCLUSION: 1. Positive bilateral lower extremity deep venous thrombosis, nonocclusive as above. Jamie Corrales MD Head CT 06/07/17 Signed Impressions: Service Date/Time: Wednesday, June 07, 2017 17:01 - CONCLUSION: 1. No acute intracranial abnormality. 2. Extensive subcutaneous air tracking up from the chest. Luc Cain Jr., MD Cervical Spine CT 06/07/17 0000 Signed Impressions: Service Date/Time: Wednesday, June 07, 2017 17:01 - CONCLUSION: 1. Extensive subcutaneous emphysema. 2. Tiny left apical pneumothorax. 3. Diffuse mild degenerative changes without central canal stenosis. Multilevel neural foraminal narrowing. 4. Prevertebral soft tissues obscured by an endotracheal tube and nasogastric tube. Luc Cain Jr., MD Chest Tube Insertion 06/05/17 Signed Impressions: Service Date/Time: May 09:15 - CONCLUSION: Uncomplicated chest tube placement as above. Maxwell Aldana MD Chest CT 06/05/17 0000 Signed Impressions: Service Date/Time: May 08:47 - CONCLUSION: 1. Moderate left-sided hemothorax with associated left lower lobe consolidation which may reflect a combination of compressive atelectasis, aspiration, and potentially lung infarction given recent pulmonary artery embolization. 2. Trace right apical pneumothorax with large bore chest tube in the major fissure and smallbore chest tube in the soft tissues. Significant subcutaneous emphysema extending to the cervicothoracic junction bilaterally. 3. Airspace consolidation in the right lower lobe posteriorly may reflect aspiration. Maxwell Aldana MD Embolization 06/03/17 0000 Signed Impressions: Service Date/Time: Saturday, June 03, 2017 00:00 - CONCLUSION: Left pulmonary artery rupture with successful coil embolization of a lower lobe branch vessel as above. Joselo Jennings MD Physical Exam HEENT: Normocephalic; atraumatic; no jaundice. Intubated on vent CHEST: Diminished CARDIAC: Irregular, + murmur ABDOMEN: Soft, mild distention; no hepatosplenomegaly; bowel sounds are active EXTREMITIES: Generalized edema. 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 KUB (06/23/17)---> Nonspecific bowel gas pattern with some air filled loops of mildly dilated small bowel and nondilated colon. This may be an ileus. S/P SSE x 2 on 06/23 , no response per nurse. Has not had bowel movement since. Last BM 06/21. Clinically, no n/v. KUB ()---> Mild air distention of small and large bowel in a nonobstructive pattern. The mildly dilated small bowel segments documented previously have mostly resolved. 2. Severe atherosclerotic disease. Reglan. Miralax daily. - Anemia. HH dropped from 11.8/36 on 06/27 to 8.9/25.7 on 06/28. Platelets 32. 2 units of FFP and 2 units of platelets ordered. - Severe aortic stenosis, S/P left and right heart catheter for TAVR evaluation. Developed right heart catheterization patient developed acute massive hemoptysis with shock secondary to acute rupture of pulmonary artery. S/P Dr. Corrales and Dr. Jennings performed right heart cath, identified bleeding of a small branch in the left pulmonary artery- S/P 6 coils in the lower left lower pulmonary artery followed with Gelfoam closing the perforation. - Atrial fibrillation. Cardizem, Digoxin, BB. - Resp. Failure, PTX, PNA, poss aspiration. Patient intubated 05/27 due to worsening hypoxemic respiratory failure. Right thoracentesis planned today due to moderate to large right effusion noted on bedside ultrasound. PEG placement pending family decision. - Vfib/Vtach. S/P CPR, cardioversion- ROSC. 06/27/17 KUB neg for ileus or obstruction but seems distended, tympanitic today. OGT to LIWS. she was intubated this morning, probable aspiration. d/w primary re placement PEG tube. POA is pts son Faisal Mahoney [phone]. He was hesitant to pursue PEG tube placement, citing over all decline and repeated intubations,prolonged stay in hospital. He requested time to speak with family and was interested in speaking with palliative care. 07/01/17 - family does not wish to pursue PEG tube placement. PLT dropped to 16. + BM. TF running @ goal 40ml/hr. d/w ALMA, FAITH. PLAN - no PEG at this time per family wishes - supportive care - GI will sign off, please reconsult if needed. Patient seen and examined by Dr. Grigsby and myself and this note is written on his behalf (Fina Tavera) Physician Comments Patient seen and examined Agree with above Continue with current supportive care Monitor labs We will sign off (Tha Ferguson MD) Fina Tavera Jul 01, 2017 13:16 Tha Ferguson MD Jul 01, 2017 23:57
--- NOTE | 2017-07-01 13:53 | HHI.CCPN ---
Subjective Remarks/Hospital Course I was emergently called to clinical laboratory technologist by Dr. Corrales. Ms. Mahoney who is 89 yo female with history of severe aortic stenosis was undergoing left and right heart catheter for TAVR evaluation. With right heart catheterization patient developed acute massive hemoptysis with shock secondary to acute rupture of pulmonary artery. Patient was intubated by Dr. Potter and ETT was advance to Right lung for selective right lung ventilation due to massive hemorrhage from Left lung. On my arrival to clinical laboratory technologist, patient was rapidly dropping blood pressure. Dopamine was already started. I ordered Shantanu-Synephrine, at 300 mcg/ m in an attempt to increase MAP and also increase the pulmonary vasoconstriction. Levophed was also added to maintain blood pressure and rapidly titrated up. Emergency release blood initially 3 units was ordered stat along with 2 units of FFP, 1 unit of platelet. I also emergently contacted Dr. Vásquez was in the office. (Dr. Bedoya the on-call CT surgeon was operating). While on Levophed Shantanu-Synephrine and dopamine, patient developed coarse V. fib/V. tach, received brief CPR, and was DC cardioverted 1 with return of spontaneous circulation and sinus rhythm. I discussed with Dr. Corrales and anesthesiologist, I also contacted Dr. Josue from invasive radiology.Dr. Josue immediately arrived to the clinical laboratory technologist. Dr. Abdelrahman francis performed PARVIN which showed vigorous LV contraction but cavity was empty. Received Continuous massive fluid resuscitation with multiple crystalloid boluses, bicarbonate and calcium. Blood arrived and initially 3 units of PRBC, 2 units of 1 unit of platelets was given with calcium total 3 g given after blood transfusion. Because of persistent hypotension, additional 2 units of PRBC was given. While I resuscitated the patient, Dr. Corrales and Dr. Jennings performed right heart cath, identified bleeding of a small branch in the left pulmonary artery. They put put in 6 coils in the lower left lower pulmonary artery followed with Gelfoam closing the perforation. 06/04: Emergency chest 2 yesterday for right pneumothorax with hypotension and hypoxia. Remains intubated sedated and on Levophed. FiO2 remains at 100%, Sat improving to 94-95 %. UO adequate overnight. 2-D echo on my review normal LV and RV function, no PFO on bubble study 06/05: Patient is in atrial fibrillation currently on Cardene infusion for blood pressure control. Chest x-ray shows percutaneous emphysema and small apical pneumothorax. Remains on 80% FiO2. I discussed with interventional radiology. We will attempt CT-guided repositioning of the pigtail catheter and possibly upgrading to a larger tube. Urine output adequate 750 mL in 24 hours 06/06: Currently remains in A. fib with rate controlled, hypertensive on Cardizem drip. Oxygen saturation has improved FiO2 now to 40% with saturation 97%. Urine output excellent with Lasix 4.5 L in 24 hours. Chest x-ray today shows 2.5 cm bilateral apical pneumothorax, also left side has 1.2 cm lateral pneumothorax 06/07: Intubated, on low dose propofol for ventilator synchrony. FiO2 40% oxygen saturation 99%. Chest x-ray and labs pending urine output 2.7 L. 3 chest tubes with no air leak. If neuro exam not improving off sedation will check CT of the head. Currently on propofol will knife changer to Precedex to initiate weaning trials. On weaning doses of inhaled Flolan currently on 30, 000 ng 06/08: Remains intubated, mild sedation with Precedex. Overnight FiO2 increased to 65% for hypoxia. CXR left more than right consolidation of lower lobes. Sputum positive for MRSA on vancomycin. Bilateral lower extremity US studies yesterday showed DVT, initiated on IV heparin. Currently therapeutic on heparin. No evidence of pulmonary hemorrhage. Neuro exam is improving weekly follows commands all 4 extremities 06/09: remains intubated. failed CPAP yesterday. on Cleviprex and precedex. fio2 back to 40%. CXR improved aeration with the exception of known LLL. FC x 4. 06/10: failed SBT again for apnea. but much more awake. denies pain. ROS negative. off cleviprex. new air leak in chest tube. will get chest xray to re- eval. 06/11: Warm, well perfused. Alert, cooperative. Communicates with head nod, hand gestures. Comfortable respiratory pattern and acceptable excursions.Air leaks will seal when off positive pressure ventilation. FiO2 to 0.80 last night briefly; now 0.40. I'll come back later today and see if I can get her extubated. 06/12: Required re-intubation for hypoxemic respiratory failure last evening. She is now warm with well perfused fingers and toes. Low dose levophed not hampering peripheral perfusion. Mild prerenal azotemia. CXR with diffuse infiltrates as before. WBC 32,00, afebrile. Must assume colonized lungs at least. Antibiotic coverage is appropriate. Reculture sputum, urine. Progress to weaning trials daily.Hemodynamics appear excellent, rate a minor problem pretty well controlled. Continue Vanc. Stop pip/roxi, start cefepime. Narrow after cultures. Change CVLs, draw blood cultures. 06/13: Persistent leukocytosis, Tmax 100.2. O2 diffusion acceptable on positive pressure ventilation. Sputum culture pending. Remains warm and well perfused. Continue daily spontaneous breathing trials. 06/14: Bronch and BAL this morning by Dr. Muñoz. Gas exchange remains acceptable. Continue SBTs. 06/15: Looks great on SBTs/CPAP. She would benefit from a temporary tracheostomy. But she will eventually be off and extubated for good. C&S pending from BAL. Continue present abx regimen - discussed with Dr. Segura. 06/16: Awake alert following commands on vent. Currently on Precedex 0.5 g per KG per hour. Still has large amount of ETT secretions, but improving. R pigtail dislodged with turning, no pneumo on repeat CXR 06/17: Awake alert on low dose Precedex. Tolerated CPAP yesterday. Not extubated yesterday due copious bloody secretions. The chest x-ray shows some interval improvement and secretions slightly improved. Will proceed with SBT and possible extubation 06/18: Extubated yesterday tolerating very well. Coughing up sputum, cough seems adequate. Slight increase in WBC to 19.1. Received single dose of Decadron yesterday. Overall doing well communicating, no fever 06/19: WBC count slightly improved 17.9. Otherwise breathing comfortably. Single episode of delirium overnight. Will remove Payne today and also remove right chest tube 06/20: Up in chair, labs pending. CXR showing slight increase in L effusion. Will check bedside US. [facility] Re consult Note: 06/26/17: Critical care reconsulted for acute desaturation. After patient was sat on the side of the bed and when put back in the bed she acutely desaturated to mid 70s. Placed on nonrebreather and I was asked to evaluate the patient by Dr. Corrales. On my exam patient is in moderate distress, diffuse crackles on the chest. Stat chest x-ray shows acute change from chest x-ray 2 days ago. Bilateral diffuse interstitial and alveolar infiltrates with bilateral pleural effusions consistent with CHF. IV 20 mg Lasix given stat. Payne reinserted. Stat Bumex infusion started and transfer to ICU stat and placed on BiPAP 12 over 5. At this time does not need reintubation but this is a possibility 06/27: Remains on BiPAP overnight, slightly tachypneic but oxygen saturation 97 % on 55% FiO2. Chest x-ray shows improved bilateral infiltrate indicating improving CHF. After receiving additional Lasix and Bumex infusion urine output approximately 800 ml in 24 hours. Bumex infusion was increased to 1 mg per hour. UA shows evidence of UTI. Platelet count dropped to 57, most likely secondary to sepsis. DC Zyvox start vancomycin reconsult ID. Cefepime was added yesterday 06/28: Intubated yesterday noon due to acute worsening of hypoxemic respiratory failure. Remains intubated sedated critically ill though stabilizing. WBC count has normalized to 9.9 but platelet count further decreased to 32. I will increase Solu-Medrol 40 every 8 hours and get hematology consult. BUN/ creatinine 50/1.39, slightly worsened but urine output remains excellent a terminal overnight. Plan for right thoracentesis today after FFP and platelet transfusion. Currently only on 2 mcg/m of Levophed. 2 D Echo yesterday showed increased mean gradient. May need BAV as bridge to TAVR (secondary to flash pulmonary edema and heart failure) 06/29: Patient remains intubated sedated. Remains critically ill. Chest x-ray remained stable to slightly increased pulmonary vascular congestion. Platelet count has further dropped 34, Hb stable at 10.5. Hematology is following on IV steroids and Promacta. Dr. Ortega considering IVIG. With low platelet, Coumadin is on hold. Will start IV Heparin for LE DVT (US 06/07/17) when cleared by Hematology INR is 1.[address] Corrales to decide on BAV. UO 2.6L in 24 hours 06/30: Patient is off sedation more awake follows commands intermittently. On attempted CPAP with pressure support 15 becomes slightly tachypneic. Urine output 2.5 L in 24 hours BUN elevated to 78 creatinine 1.5. CBC downtrending hemoglobin remained stable. Platelet count dropped to 30 without evidence of bleeding. Anticoagulation on hold due to severe thrombocytopenia. Family declines further invasive treatment 07/01: Remains orally intubated on mechanical ventilation. Worsening thrombocytopenia. No active bleeding currently. Family does not want further invasive measures and patient is alternate code currently. They have declined PEG tube placement. Objective Vital Signs Date Time Temp Pulse Resp B/P (MAP) Pulse Ox O2 Delivery O2 Flow Rate FiO2 07/01/17 09:25 98 40 07/01/17 07:00 98.1 95 15 166/84 (111) 179/72 (107) 07/01/17 07:00 Mechanical Ventilator 06/27/17 11:00 15.00 Intake and Output 07/01/17 07/01/17 07/01/17 07:59 15:59 23:59 Intake Total 435 ml Output Total 1700 ml Balance -1265 ml Result Diagram: 07/01/1742407/01/17424 Objective Remarks GENERAL: Lying in bed off all sedation SKIN: Skin/dry. ENT: Oral cavity is moist. Orotracheally intubated. NECK: Trachea midline. Supple. Positive JVD CARDIOVASCULAR: Remains in atrial fibrillation rate controlled now, but hypertensive. Systolic murmur over apex and LSB. Hypertensive RESPIRATORY: Air entry equally diminished with bilateral crackles, improving, few scattered wheezes. GASTROINTESTINAL: Abdomen Soft, no guarding. BS active. MUSCULOSKELETAL: Limbs well perfused. UE edematous NEUROLOGICAL: Intubated off sedation. Moves extremities, weakly following commands all four extremities Date of Insertion: Jun 27, 2017 Side: Right Location: Internal, Jugular A/P Assessment and Plan Assessment: 89yF with severe aortic stenosis, admitted to ICU after RHC complicated by Pulmonary Artery rupture, pneumothorax secondary to barotrauma, MRSA healthcare associated pneumonia. Now placed back in ICU with acute hypoxic respiratory failure, from flash pulmonary edema due to diastolic CHF and also with sepsis. Worsening acute kidney injury on thrombocytopenia is concerning. Unable to anticoagulate for bilateral DVTs due to severe thrombocytopenia NEURO: - Precedex to facilitate vent weaning, daily sedation vacation - Holding home sertraline. Tylenol PRN - Initial CT of the head and C-spine negative for acute injury RESP: Acute hypoxemic respiratory failure Pulmonary edema/pleural effusions s/p Left lower pulmonary artery rupture with massive hemorrhage 06/03/17 MRSA pneumonia Previous Large Left hemothorax s/p IR chest tube placement, residual L pneumo after evacuation Previous Bilateral apical pneumothorax Bilateral lower extremity DVT - Transferred to ICU 06/26/17 initiated on BiPAP 12. Intubated 06/27/17 for worsening hypoxemic respiratory failure - Continue ACV, FiO2 down to 40% PEEP 8. Start daily SBT, becomes tachypneic when pressure-support below 15 - Scheduled DuoNeb every 6 hours and when necessary. Continue INH Budesonide - Chest x-ray 06/26 shows extensive bilateral interstitial and alveolar infiltrates with bilateral pleural effusions consistent with acute CHF exacerbation - CXR 06/27 interval improvement in pulmonary edema, CXR 06/30 stable - s/p coil and Gelfoam closure of Left lower pulmonary artery (peripheral small branch) by Rhoda Corrales and Michaela (see resuscitation note on 06/03/17) - Last Extubated 06/16/17. Previously Required re-intubation 06/02 for hypoxemia - Prev Sputum with MRSA. (Was on Zyvox, Levaquin-see ID section for new ABX) - Previously s/p chest tube x2 for right pneumothorax on 06/03. New apical chest tube placed 06/06/17 - IR, placed 24 F Left chest tube 06/05 with drainage of 2 L hemothorax, residual pneumothorax present, now resolved - s/p Bronchoscopy on 06/03/17 with removal of blood predominantly from L lung, s/p repeat bronch 06/06, 06/15 - Venous duplex -bilateral lower extremity DVT. Start heparin IV when plt count >35K per hematology CV/Heme: CHF/pulmonary edema Acute Diastolic HF exacerbation Severe Aortic Stenosis Atrial fibrillation with RVR Thrombocytopenia secondary to sepsis and ITP Bilateral lower extremity DVT History of ITP - Discussed extensively with Dr. Corrales. Echo 06/27 shows lulu with mean gradient of 42, LATIA 0.49. Heart failure is secondary to severe aortic stenosis and diastolic dysfunction - Patient's family is not interested in pursuing any further invasive procedures including BAV - High chance of failure, if extubated without valvuloplasty, patient most likely have recurrent heart failure and also has significant weakness - On IV Lasix but will hold again due to worsening creatinine to 1.5 - UO 2.5L in 24 hours - Continue IV steroid for ITP, IV Solu Medrol 40 mg ever 8 hours-reduce to 40 q12 as refractory disturbance and BUN climbing - Continue Promacta for ITP. Hematology Dr. Ortega following, he may consider IVIG, he is aware of LE DVT - Start IV Heparin once plt >35K - Continue Cardizem PO. Continue metoprolol, 50 mg by mouth every 8 hours. Home dose of digoxin - Cozaar 50 mg daily. Add Hydralazine 50 mg PO q8 (patient is well beta blocked) . Add clonidine 0.2 mg PO q6 PRN - Previously Received 6 units of PRBC, 2 units of FFP and one of platelets 06/03. PARVIN normal LV contractility, volume depletion - 2D Echo 06/04 RV LV function look normal, no PFO. 2 D Echo 06/27 good LV fn, concentric LVH, sev MG 42 GI: Ileus - KUB shows improving ileus06/25, Tube feeds with Jevity on hold while on SBT - Continue IV Reglan, GI following : - Monitor renal function closely. Payne catheter. Urine output adequate - Creat increased to 1.5, UO adequate 2.5L in 24 hours, will use IV steroids, hold IV Lasix after today's a.m. dose ID: Sepsis UTI Prev MRSA pneumonia - Started on cefepime 06/26/17 for severe sepsis, will continue. ID Dr. Segura DCd Teflaro, Micafungin and Levaquin on 06/29/17 - Prev BAL culture MRSA. - All recent cultures have been negative ENDO: - Replace electrolytes per protocol PROPH: - No SCDs due to DVT. IV Protonix-change to famotidine due to thrombocytopenia. Coumadin on hold, due to severe thrombocytopenia. Resume when cleared by hematology LINES: - RIJ central line placed 06/27 accidentally dislodged, new left IJ central line placed 06/28/17 Overall impression: Critically ill with acute hypoxemic respiratory from CHF exacerbation, secondary to diastolic dysfunction and severe . D/W Dr. Corrales. Course Complicated by persistent thrombocytopenia, renal failure and overall generalized weakness. Family not interested in pursuing invasive procedures. Family meeting held by Dr. Esquivel and Dr. Corrales on 06/30. Changed to alternate CODE STATUS. Family wishes to pursue palliative care-defer to Dr. Corrales. Prognosis appears poor. Patient extremely high risk for reintubation. We'll continue on mechanical ventilation as family does not want further aggressive measures and are leaning towards comfort measures probably then continuing aggressive care at this time. Await Dr. Corrales to discuss further with family. Level 3 Dion Segura MD Jul 01, 2017 13:53
[2017-07-01] MEDS: DILTIAZEM HCL 30 MG TAB PO SCH ×2 (14:32→20:24)
[2017-07-01] MEDS: hydrALAZINE HCL 20 MG/ML VIAL IV PUSH PRN (17:08)
[2017-07-02] VITALS (20 sets, daily range): BP systolic 132–194; BP diastolic 55–90; PULSE 70–86; RESP 14–30; TEMP 96.8–98.6; O2SAT 96–99
[2017-07-02] MEDS: DILTIAZEM HCL 30 MG TAB PO SCH ×4 (01:14→18:40)
[2017-07-02] MEDS: cloNIDine HCL 0.2 MG TAB PO PRN (02:39)
[2017-07-02] MEDS: RESP: IPRATROPIUM 0.5 MG/2.5 ML NEB NEB SCH ×4 (03:33→21:45)
[2017-07-02] MEDS: LEVOTHYROXINE SODIUM 50 MCG TAB PO SCH (04:58)
[2017-07-02] MEDS: ALBUMIN 25% INJ 100 ML IV SCH ×2 (04:59→18:38)
[2017-07-02] MEDS: hydrALAZINE HCL 50 MG TAB PO SCH ×3 (04:59→22:00)
[2017-07-02 05:36] LABS: AUTOMATED NEUTROPHIL # 8.2 TH/MM3 (1.8-7.7); HEMATOCRIT 29.3 % (35.0-46.0); LYMPH % 4.6 % (9.0-44.0); LYMPHOCYTE # 0.4 TH/MM3 (1.0-4.8); MEAN CELL VOLUME 87.1 FL (80.0-100.0); MEAN CORPUSCULAR HEMOGLOBIN 29.5 PG (27.0-34.0); MEAN CORPUSCULAR HGB CONC 33.8 % (32.0-36.0); MONO % 9.7 % (0.0-8.0); NEUT % 85.7 % (16.0-70.0); PLATELET COUNT 32 TH/MM3 (150-450); RED BLOOD COUNT 3.37 MIL/MM3 (4.00-5.30); RED CELL DISTRIBUTION WIDTH 17.3 % (11.6-17.2); WHITE BLOOD COUNT 9.6 TH/MM3 (4.0-11.0)
[2017-07-02 05:39] LABS: HEMO FLAGS AUTO DIFF
[2017-07-02] MEDS: METOCLOPRAMIDE HCL 10 MG/2 ML VIAL IV PUSH SCH ×3 (05:42→22:00)
[2017-07-02 05:56] LABS: ANION GAP 9 MEQ/L (5-15); AST (GOT) 14 U/L (15-37); BICARBONATE 30.5 MEQ/L (21.0-32.0); BLOOD UREA NITROGEN 100 MG/DL (7-18); CHLORIDE 112 MEQ/L (98-107); GLOMERULAR FILTRATION RATE 40 ML/MIN (>89); POTASSIUM 3.7 MEQ/L (3.5-5.1); SODIUM (NA) 151 MEQ/L (136-145)
[2017-07-02 05:59] LABS: ALKALINE PHOSPHATASE 110 U/L (45-117); ALT (GPT) 28 U/L (10-53); TOTAL BILIRUBIN ADULT 0.8 MG/DL (0.2-1.0)
--- NOTE | 2017-07-02 07:26 | HHI.CCPN ---
Subjective Remarks/Hospital Course I was emergently called to geoscience laboratory technician by Dr. Corrales. Ms. Mahoney who is 89 yo female with history of severe aortic stenosis was undergoing left and right heart catheter for TAVR evaluation. With right heart catheterization patient developed acute massive hemoptysis with shock secondary to acute rupture of pulmonary artery. Patient was intubated by Dr. Potter and ETT was advance to Right lung for selective right lung ventilation due to massive hemorrhage from Left lung. On my arrival to geoscience laboratory technician, patient was rapidly dropping blood pressure. Dopamine was already started. I ordered Shantanu-Synephrine, at 300 mcg/ m in an attempt to increase MAP and also increase the pulmonary vasoconstriction. Levophed was also added to maintain blood pressure and rapidly titrated up. Emergency release blood initially 3 units was ordered stat along with 2 units of FFP, 1 unit of platelet. I also emergently contacted Dr. Vásquez was in the office. (Dr. Bedoya the on-call CT surgeon was operating). While on Levophed Shantanu-Synephrine and dopamine, patient developed coarse V. fib/V. tach, received brief CPR, and was DC cardioverted 1 with return of spontaneous circulation and sinus rhythm. I discussed with Dr. Corrales and anesthesiologist, I also contacted Dr. Josue from invasive radiology.Dr. Josue immediately arrived to the geoscience laboratory technician. Dr. Abdelrahman francis performed PARVIN which showed vigorous LV contraction but cavity was empty. Received Continuous massive fluid resuscitation with multiple crystalloid boluses, bicarbonate and calcium. Blood arrived and initially 3 units of PRBC, 2 units of 1 unit of platelets was given with calcium total 3 g given after blood transfusion. Because of persistent hypotension, additional 2 units of PRBC was given. While I resuscitated the patient, Dr. Corrales and Dr. Jennings performed right heart cath, identified bleeding of a small branch in the left pulmonary artery. They put put in 6 coils in the lower left lower pulmonary artery followed with Gelfoam closing the perforation. 06/04: Emergency chest 2 yesterday for right pneumothorax with hypotension and hypoxia. Remains intubated sedated and on Levophed. FiO2 remains at 100%, Sat improving to 94-95 %. UO adequate overnight. 2-D echo on my review normal LV and RV function, no PFO on bubble study 06/05: Patient is in atrial fibrillation currently on Cardene infusion for blood pressure control. Chest x-ray shows percutaneous emphysema and small apical pneumothorax. Remains on 80% FiO2. I discussed with interventional radiology. We will attempt CT-guided repositioning of the pigtail catheter and possibly upgrading to a larger tube. Urine output adequate 750 mL in 24 hours 06/06: Currently remains in A. fib with rate controlled, hypertensive on Cardizem drip. Oxygen saturation has improved FiO2 now to 40% with saturation 97%. Urine output excellent with Lasix 4.5 L in 24 hours. Chest x-ray today shows 2.5 cm bilateral apical pneumothorax, also left side has 1.2 cm lateral pneumothorax 06/07: Intubated, on low dose propofol for ventilator synchrony. FiO2 40% oxygen saturation 99%. Chest x-ray and labs pending urine output 2.7 L. 3 chest tubes with no air leak. If neuro exam not improving off sedation will check CT of the head. Currently on propofol will chart changer to Precedex to initiate weaning trials. On weaning doses of inhaled Flolan currently on 30, 000 ng 06/08: Remains intubated, mild sedation with Precedex. Overnight FiO2 increased to 65% for hypoxia. CXR left more than right consolidation of lower lobes. Sputum positive for MRSA on vancomycin. Bilateral lower extremity US studies yesterday showed DVT, initiated on IV heparin. Currently therapeutic on heparin. No evidence of pulmonary hemorrhage. Neuro exam is improving weekly follows commands all 4 extremities 06/09: remains intubated. failed CPAP yesterday. on Cleviprex and precedex. fio2 back to 40%. CXR improved aeration with the exception of known LLL. FC x 4. 06/10: failed SBT again for apnea. but much more awake. denies pain. ROS negative. off cleviprex. new air leak in chest tube. will get chest xray to re- eval. 06/11: Warm, well perfused. Alert, cooperative. Communicates with head nod, hand gestures. Comfortable respiratory pattern and acceptable excursions.Air leaks will seal when off positive pressure ventilation. FiO2 to 0.80 last night briefly; now 0.40. I'll come back later today and see if I can get her extubated. 06/12: Required re-intubation for hypoxemic respiratory failure last evening. She is now warm with well perfused fingers and toes. Low dose levophed not hampering peripheral perfusion. Mild prerenal azotemia. CXR with diffuse infiltrates as before. WBC 32,00, afebrile. Must assume colonized lungs at least. Antibiotic coverage is appropriate. Reculture sputum, urine. Progress to weaning trials daily.Hemodynamics appear excellent, rate a minor problem pretty well controlled. Continue Vanc. Stop pip/roxi, start cefepime. Narrow after cultures. Change CVLs, draw blood cultures. 06/13: Persistent leukocytosis, Tmax 100.2. O2 diffusion acceptable on positive pressure ventilation. Sputum culture pending. Remains warm and well perfused. Continue daily spontaneous breathing trials. 06/14: Bronch and BAL this morning by Dr. Muñoz. Gas exchange remains acceptable. Continue SBTs. 06/15: Looks great on SBTs/CPAP. She would benefit from a temporary tracheostomy. But she will eventually be off and extubated for good. C&S pending from BAL. Continue present abx regimen - discussed with Dr. Segura. 06/16: Awake alert following commands on vent. Currently on Precedex 0.5 g per KG per hour. Still has large amount of ETT secretions, but improving. R pigtail dislodged with turning, no pneumo on repeat CXR 06/17: Awake alert on low dose Precedex. Tolerated CPAP yesterday. Not extubated yesterday due copious bloody secretions. The chest x-ray shows some interval improvement and secretions slightly improved. Will proceed with SBT and possible extubation 06/18: Extubated yesterday tolerating very well. Coughing up sputum, cough seems adequate. Slight increase in WBC to 19.1. Received single dose of Decadron yesterday. Overall doing well communicating, no fever 06/19: WBC count slightly improved 17.9. Otherwise breathing comfortably. Single episode of delirium overnight. Will remove Payne today and also remove right chest tube 06/20: Up in chair, labs pending. CXR showing slight increase in L effusion. Will check bedside US. [facility] Re consult Note: 06/26/17: Critical care reconsulted for acute desaturation. After patient was sat on the side of the bed and when put back in the bed she acutely desaturated to mid 70s. Placed on nonrebreather and I was asked to evaluate the patient by Dr. Corrales. On my exam patient is in moderate distress, diffuse crackles on the chest. Stat chest x-ray shows acute change from chest x-ray 2 days ago. Bilateral diffuse interstitial and alveolar infiltrates with bilateral pleural effusions consistent with CHF. IV 20 mg Lasix given stat. Payne reinserted. Stat Bumex infusion started and transfer to ICU stat and placed on BiPAP 12 over 5. At this time does not need reintubation but this is a possibility 06/27: Remains on BiPAP overnight, slightly tachypneic but oxygen saturation 97 % on 55% FiO2. Chest x-ray shows improved bilateral infiltrate indicating improving CHF. After receiving additional Lasix and Bumex infusion urine output approximately 800 ml in 24 hours. Bumex infusion was increased to 1 mg per hour. UA shows evidence of UTI. Platelet count dropped to 57, most likely secondary to sepsis. DC Zyvox start vancomycin reconsult ID. Cefepime was added yesterday 06/28: Intubated yesterday noon due to acute worsening of hypoxemic respiratory failure. Remains intubated sedated critically ill though stabilizing. WBC count has normalized to 9.9 but platelet count further decreased to 32. I will increase Solu-Medrol 40 every 8 hours and get hematology consult. BUN/ creatinine 50/1.39, slightly worsened but urine output remains excellent a terminal overnight. Plan for right thoracentesis today after FFP and platelet transfusion. Currently only on 2 mcg/m of Levophed. 2 D Echo yesterday showed increased mean gradient. May need BAV as bridge to TAVR (secondary to flash pulmonary edema and heart failure) 06/29: Patient remains intubated sedated. Remains critically ill. Chest x-ray remained stable to slightly increased pulmonary vascular congestion. Platelet count has further dropped 34, Hb stable at 10.5. Hematology is following on IV steroids and Promacta. Dr. Ortega considering IVIG. With low platelet, Coumadin is on hold. Will start IV Heparin for LE DVT (US 06/07/17) when cleared by Hematology INR is 1.[address] Corrales to decide on BAV. UO 2.6L in 24 hours 06/30: Patient is off sedation more awake follows commands intermittently. On attempted CPAP with pressure support 15 becomes slightly tachypneic. Urine output 2.5 L in 24 hours BUN elevated to 78 creatinine 1.5. CBC downtrending hemoglobin remained stable. Platelet count dropped to 30 without evidence of bleeding. Anticoagulation on hold due to severe thrombocytopenia. Family declines further invasive treatment 07/01: Remains orally intubated on mechanical ventilation. Worsening thrombocytopenia. No active bleeding currently. Family does not want further invasive measures and patient is alternate code currently. They have declined PEG tube placement. 07/02: Remains orally intubated on mechanical ventilation. Failed C Pap trial after 1.5 hours yesterday. Family wants palliative care per discussion with nursing yesterday - defer to Dr. Corrales. Objective Vital Signs Date Time Temp Pulse Resp B/P (MAP) Pulse Ox O2 Delivery O2 Flow Rate FiO2 07/02/17 04:00 96.8 76 15 148/66 (93) 96 160/61 (94) 07/02/17 03:41 40 07/02/17 03:41 Mechanical Ventilator Intake and Output 07/02/17 07/02/17 07/03/17 08:00 16:00 00:00 Intake Total 1080 ml Output Total 750 ml Balance 330 ml Result Diagram: 07/02/17 0455 07/02/17 0455 Imaging Last 48 hours Impressions Chest X-Ray 07/01/17 0600 Signed Impressions: Service Date/Time: Saturday, July 01, 2017 05:19 - CONCLUSION: Tubes and catheters are in good position. Worsening infiltrate throughout the right lung since previous study. Moderate left pleural effusion is unchanged. Domingo Claire MD Objective Remarks GENERAL: Lying in bed off all sedation SKIN: Skin/dry. ENT: Oral cavity is moist. Orotracheally intubated. NECK: Trachea midline. Supple. Positive JVD CARDIOVASCULAR: Remains in atrial fibrillation rate controlled now, but hypertensive. Systolic murmur over apex and LSB. RESPIRATORY: Air entry equally diminished with bilateral crackles, improving, few scattered wheezes. GASTROINTESTINAL: Abdomen Soft, no guarding. BS active. MUSCULOSKELETAL: Limbs well perfused. UE edematous NEUROLOGICAL: Intubated off sedation. Moves extremities, weakly following commands all four extremities Date of Insertion: Jun 27, 2017 Side: Right Location: Internal, Jugular A/P Assessment and Plan Assessment: 89yF with severe aortic stenosis, admitted to ICU after RHC complicated by Pulmonary Artery rupture, pneumothorax secondary to barotrauma, MRSA healthcare associated pneumonia. Now placed back in ICU with acute hypoxic respiratory failure, from flash pulmonary edema due to diastolic CHF and also with sepsis. Worsening acute kidney injury on thrombocytopenia is concerning. Unable to anticoagulate for bilateral DVTs due to severe thrombocytopenia NEURO: - Precedex to facilitate vent weaning if needed, daily sedation vacation. Currently off all sedation - Holding home sertraline. Tylenol PRN - Initial CT of the head and C-spine negative for acute injury RESP: Acute hypoxemic respiratory failure Pulmonary edema/pleural effusions s/p Left lower pulmonary artery rupture with massive hemorrhage 06/03/17 MRSA pneumonia Previous Large Left hemothorax s/p IR chest tube placement, residual L pneumo after evacuation Previous Bilateral apical pneumothorax Bilateral lower extremity DVT - Transferred to ICU 06/26/17 initiated on BiPAP 12. Intubated 06/27/17 for worsening hypoxemic respiratory failure - Continue ACV, FiO2 down to 40% PEEP 8. daily SBT, becomes tachypneic when pressure-support below 15. - Scheduled DuoNeb every 6 hours and when necessary. Continue INH Budesonide - Chest x-ray 06/26 shows extensive bilateral interstitial and alveolar infiltrates with bilateral pleural effusions consistent with acute CHF exacerbation - CXR 06/27 interval improvement in pulmonary edema, CXR 06/30 stable - s/p coil and Gelfoam closure of Left lower pulmonary artery (peripheral small branch) by Rhoda Corrales and Michaela (see resuscitation note on 06/03/17) - Last Extubated 06/16/17. Previously Required re-intubation 06/02 for hypoxemia - Prev Sputum with MRSA. (Was on Zyvox, Levaquin-see ID section for new ABX) - Previously s/p chest tube x2 for right pneumothorax on 06/03. New apical chest tube placed 06/06/17 - IR, placed 24 F Left chest tube 06/05 with drainage of 2 L hemothorax, residual pneumothorax present, now resolved - s/p Bronchoscopy on 06/03/17 with removal of blood predominantly from L lung, s/p repeat bronch 06/06, 06/15 - Venous duplex -bilateral lower extremity DVT. Start heparin IV when plt count >35K per hematology CV/Heme: CHF/pulmonary edema Acute Diastolic HF exacerbation Severe Aortic Stenosis Atrial fibrillation with RVR Thrombocytopenia secondary to sepsis and ITP Bilateral lower extremity DVT History of ITP - Discussed extensively with Dr. Corrales. Echo 06/27 shows lluu with mean gradient of 42, LATIA 0.49. Heart failure is secondary to severe aortic stenosis and diastolic dysfunction - Patient's family is not interested in pursuing any further invasive procedures including BAV - High chance of failure, if extubated without valvuloplasty, patient most likely have recurrent heart failure and also has significant weakness - IV Lasix held due to worsening BUN/creatinine -Follow urine output - Continue IV steroid for ITP, IV Solu Medrol 40 mg ever 8 hours-reduce to 40 q12 as refractory disturbance and BUN climbing - Continue Promacta for ITP. Hematology Dr. Ortega following, he may consider IVIG, he is aware of LE DVT - Start IV Heparin once plt >35K - Continue Cardizem PO. Continue metoprolol, 50 mg by mouth every 8 hours. Home dose of digoxin - Cozaar 50 mg daily. Add Hydralazine 50 mg PO q8 (patient is well beta blocked) . Add clonidine 0.2 mg PO q6 PRN - Previously Received 6 units of PRBC, 2 units of FFP and one of platelets 06/03. PARVIN normal LV contractility, volume depletion - 2D Echo 06/04 RV LV function look normal, no PFO. 2 D Echo 06/27 good LV fn, concentric LVH, sev MG 42 GI: Ileus - KUB shows improving ileus06/25, Tube feeds with Jevity on hold while on SBT - Continue IV Reglan, GI following : - Monitor renal function closely. Payne catheter. Urine output adequate - Diuretics held in view of worsening BUN/creatinine. ID: Sepsis UTI Prev MRSA pneumonia - Started on cefepime 06/26/17 for severe sepsis, will continue. ID Dr. Segura DCd Teflaro, Micafungin and Levaquin on 06/29/17 - Prev BAL culture MRSA. - All recent cultures have been negative ENDO: - Replace electrolytes per protocol PROPH: - No SCDs due to DVT. IV Protonix-change to famotidine due to thrombocytopenia. Coumadin on hold, due to severe thrombocytopenia. Resume when cleared by hematology LINES: - RIJ central line placed 06/27 accidentally dislodged, new left IJ central line placed 06/28/17 Overall impression: Critically ill with acute hypoxemic respiratory from CHF exacerbation, secondary to diastolic dysfunction and severe . D/W Dr. Corrales. Course Complicated by persistent thrombocytopenia, renal failure and overall generalized weakness. Family not interested in pursuing invasive procedures. Family meeting held by Dr. Esquivel and Dr. Corrales on 06/30. Changed to alternate CODE STATUS. Family wishes to pursue palliative care-defer to Dr. Corrales. Prognosis appears poor. Patient extremely high risk for reintubation. We'll continue on mechanical ventilation as patient failing C Pap trials/ Family does not want further aggressive measures and are leaning towards comfort measures probably rather then continuing aggressive care at this time. Patient has failed extubation on multiple occasions. Worsening renal function noted. They do not want tracheostomy or PEG tube placement. Await Dr. Corrales to discuss further with family as they wish to talk to palliative care team. Level 3 Dion Segura MD Jul 02, 2017 07:26
[2017-07-02] MEDS: RESP: BUDESONIDE 0.5 MG/2 ML NEB NEB SCH ×2 (07:46→21:45)
[2017-07-02] MEDS: INSULIN ASPART SUPPLEMENTAL SCALE SQ SCH ×2 (08:00→20:00)
[2017-07-02] MEDS: CHLORHEXIDINE 0.12% (ORAL KIT) 15 ML CUP MT SCH ×2 (08:01→20:00)
[2017-07-02 08:27] LABS: PLATELET ESTIMATE SMEAR LOW (NORMAL); PLATELET MORPHOLOGY NORMAL (NORMAL); SCAN/DIFF AUTO DIFF CONFIRMED
[2017-07-02 08:28] LABS: OVALOCYTES 1+ (NORMAL)
[2017-07-02] MEDS: CEFEPIME 1000 MG/NS 100 ML IV SCH ×4 (09:00→21:00)
[2017-07-02] MEDS ORDERED: SODIUM CHLOR 0.9% 250 ML INJ 250 ML IV ONE (09:15)
[2017-07-02] MEDS: POLYETHYLENE GLYCOL 17 GM PKG PO SCH (09:57)
[2017-07-02] MEDS: methylPREDNISolone SOD SUCC 40 MG/1 ML VIAL IV PUSH SCH ×2 (09:57→21:00)
[2017-07-02] MEDS: POTASSIUM CHLORIDE 25 MEQ EFFERVESCENT TAB PO SCH ×2 (09:58→21:00)
[2017-07-02] MEDS: DOCUSATE SODIUM 100 MG/10 ML UDC PO SCH ×2 (09:58→21:00)
[2017-07-02] MEDS: PANTOPRAZOLE SODIUM 40 MG VIAL IV PUSH SCH ×2 (09:58→21:00)
[2017-07-02] MEDS: guaiFENesin E.R. 600 MG TAB PO SCH ×2 (09:58→21:00)
[2017-07-02] MEDS: NYSTATIN SUSP 500,000 U/5 ML CUP SWISH-SWAL SCH ×4 (09:58→21:00)
[2017-07-02] MEDS: ELTROMBOPAG 50 MG TAB PO SCH (10:00)
[2017-07-02] MEDS: LOSARTAN 50 MG TAB PO SCH (10:00)
[2017-07-02] MEDS: METOPROLOL TARTRATE 100 MG TAB PO SCH ×2 (10:00→21:00)
[2017-07-02] MEDS: hydrALAZINE HCL 20 MG/ML VIAL IV PUSH PRN ×2 (10:20→16:44)
--- NOTE | 2017-07-02 11:09 | PD.ONC.PN ---
Subjective Subjective Remarks Afebrile No obvious bleeding Remains intubated No current plans for CPAP trial per RN Objective Data Date Time Temp Pulse Resp B/P (MAP) Pulse Ox O2 Delivery O2 Flow Rate FiO2 07/02/17 10:35 99 40 07/02/17 10:24 97.8 83 17 99 07/02/17 09:50 99 40 07/02/17 07:50 99 40 07/02/17 07:00 80 07/02/17 04:00 96.8 76 15 148/66 (93) 96 160/61 (94) 07/02/17 03:45 78 07/02/17 03:41 40 07/02/17 03:41 98 Mechanical Ventilator 40 07/02/17 03:33 97 40 07/02/17 01:20 97 40 07/02/17 00:00 98.4 80 16 170/90 (116) 97 194/75 (114) 07/01/17 23:30 77 07/01/17 23:19 40 07/01/17 23:19 98 Mechanical Ventilator 40 07/01/17 22:35 97 40 07/01/17 20:20 95 40 07/01/17 20:00 98.0 86 16 158/71 (100) 98 186/69 (108) 07/01/17 19:45 40 07/01/17 19:45 98 Mechanical Ventilator 40 07/01/17 19:10 90 07/01/17 17:10 98 40 07/01/17 15:30 98.6 87 16 161/83 97 07/01/17 15:15 98.3 87 51 161/83 97 07/01/17 15:00 98 Mechanical Ventilator 40 07/01/17 15:00 98.3 85 15 164/84 (110) 97 182/77 (112) 07/01/17 15:00 98.3 83 162/87 07/01/17 15:00 40 07/01/17 15:00 83 07/01/17 14:48 98.3 88 16 164/84 97 07/01/17 13:45 97 40 07/02/17 07/02/17 07/02/17 07:00 15:00 23:00 Intake Total 1080 ml Output Total 750 ml Balance 330 ml Result Diagram: 07/02/17 0455 07/02/17 0455 Laboratory Results Laboratory Tests Test 07/02/17 04:55 White Blood Count 9.6 TH/MM3 Red Blood Count 3.37 MIL/MM3 Hemoglobin 9.9 GM/DL Hematocrit 29.3 % Mean Corpuscular Volume 87.1 FL Mean Corpuscular Hemoglobin 29.5 PG Mean Corpuscular Hemoglobin Concent 33.8 % Red Cell Distribution Width 17.3 % Platelet Count 32 TH/MM3 Mean Platelet Volume 9.9 FL Neutrophils (%) (Auto) 85.7 % Lymphocytes (%) (Auto) 4.6 % Monocytes (%) (Auto) 9.7 % Eosinophils (%) (Auto) 0.0 % Basophils (%) (Auto) 0.0 % Neutrophils # (Auto) 8.2 TH/MM3 Lymphocytes # (Auto) 0.4 TH/MM3 Monocytes # (Auto) 0.9 TH/MM3 Eosinophils # (Auto) 0.0 TH/MM3 Basophils # (Auto) 0.0 TH/MM3 CBC Comment AUTO DIFF Differential Comment AUTO DIFF CONFIRMED Platelet Estimate LOW Platelet Morphology Comment NORMAL Ovalocytes 1+ Fibrinogen 144 mg/dL Blood Urea Nitrogen 100 MG/DL Creatinine 1.27 MG/DL Random Glucose 168 MG/DL Total Protein 6.3 GM/DL Albumin 3.9 GM/DL Calcium Level 8.9 MG/DL Alkaline Phosphatase 110 U/L Aspartate Amino Transf (AST/SGOT) 14 U/L Alanine Aminotransferase (ALT/SGPT) 28 U/L Total Bilirubin 0.8 MG/DL Sodium Level 151 MEQ/L Potassium Level 3.7 MEQ/L Chloride Level 112 MEQ/L Carbon Dioxide Level 30.5 MEQ/L Anion Gap 9 MEQ/L Estimat Glomerular Filtration Rate 40 ML/MIN Administered Medications Medications (Trade) Dose Ordered Sig/Padmini Route PRN Reason Start Time Stop Time Status Last Admin Dose Admin Metoprolol Tartrate (Lopressor Inj) 1.25 mg Q6H PRN IV PUSH SBP > 170 + HR > 100 06/04/17 19:15 06/30/17 07:30 Docusate Sodium (Colace Liq) 100 mg Q12HR PO 06/05/17 14:00 07/02/17 09:58 Potassium Bicarb/ Potassium Chloride (K-Lyte Cl Eff) 25 meq Q12HR PO 06/05/17 14:00 07/02/17 09:58 Digoxin (Lanoxin) 0.125 mg DAILY PO 06/06/17 09:00 Future Hold 06/28/17 10:09 Losartan Potassium (Cozaar) 50 mg DAILY PO 06/07/17 09:00 Future hold 07/02/17 10:00 Levothyroxine Sodium (Synthroid) 50 mcg DAILY@0600 PO 06/07/17 08:00 07/02/17 04:58 Insulin Aspart (NovoLOG SUPPLEMENTAL SCALE) 1 BID@0800,2000 SQ 06/08/17 20:00 07/01/17 08:17 Nystatin (Mycostatin Liq) 5 ml QID SWISH-SWAL 06/12/17 13:00 07/02/17 09:58 Budesonide (Pulmicort Respule Neb) 0.5 mg Q12HR NEB NEB 06/16/17 11:15 07/02/17 07:46 Acetaminophen (Tylenol 650 Mg/ 20 ml Liq) 650 mg Q6H PRN PO PAIN 1-10/ FEVER > 101.5 06/18/17 06:30 06/26/17 05:11 Ondansetron HCl (Zofran Inj) 4 mg Q6H PRN IV PUSH NAUSEA OR VOMITING 06/22/17 19:30 06/23/17 08:40 Guaifenesin (Mucinex Er) 600 mg BID PO 06/23/17 10:15 07/02/17 09:58 Metoclopramide HCl (Reglan Inj) 5 mg Q8HR IV PUSH 06/23/17 17:45 07/01/17 14:32 Polyethylene Glycol (Miralax) 17 gm DAILY PO 06/25/17 09:45 07/02/17 09:57 Albumin Human 100 ml @ 60 mls/hr Q12H IV 06/26/17 18:00 07/02/17 04:59 Chlorhexidine Gluconate (Peridex 0.12% Liq) 15 ml BID@08,20 MT 06/27/17 20:00 07/02/17 08:01 Potassium Chloride 100 ml @ 50 mls/hr Q2H PRN IV For Potassium 2.8 - 3.2 mEq/L 06/28/17 11:00 06/28/17 12:32 Potassium Chloride 100 ml @ 25 mls/hr UNSCH PRN IV For Potassium 3.3 - 3.5 mEq/L 06/28/17 11:00 06/30/17 06:06 Potassium Chloride 100 ml @ 50 mls/hr Q2H PRN IV For Potassium 3.3 - 3.5 mEq/L 06/28/17 11:00 07/01/17 06:50 Pantoprazole Sodium (Protonix Inj) 40 mg Q12H IV PUSH 06/28/17 21:00 07/02/17 09:58 Hydralazine HCl (Apresoline Inj) 20 mg Q4H PRN IV PUSH SBP >170 06/28/17 18:00 07/02/17 10:20 Cefepime HCl 1000 mg/Sodium Chloride 100 ml @ 200 mls/hr Q12HR IV 06/29/17 09:00 07/02/17 09:00 Ipratropium [place] (Atrovent Neb) 0.5 mg Q6HR NEB NEB 06/29/17 16:00 07/02/17 07:46 Eltrombopag (Promacta) 50 mg DAILY@1000 PO 06/30/17 10:00 07/02/17 10:00 Dexmedetomidine HCl 200 mcg/ Sodium Chloride 50 ml @ 2.85 mls/hr TITRATE PRN IV Desired RASS 06/29/17 19:00 06/30/17 13:28 Hydralazine HCl (Apresoline) 50 mg Q8HR PO 06/30/17 06:45 07/02/17 04:59 Clonidine (Catapres) 0.2 mg Q6H PRN PO SYS BP GREATER THAN 160 MMHG 06/30/17 08:00 07/02/17 02:39 Metoprolol Tartrate (Lopressor) 100 mg BID PO 06/30/17 21:00 07/02/17 10:00 Methylprednisolone Sodium Succinate (SoluMEDROL INJ) 40 mg Q12HR IV PUSH 06/30/17 21:00 07/02/17 09:57 Diltiazem HCl (Cardizem) 30 mg Q6H PO 07/01/17 13:00 07/02/17 07:37 Sodium Chloride 250 ml @ 15 mls/hr ONCE ONCE IV 07/02/17 09:15 07/03/17 01:54 07/02/17 10:01 Objective Remarks GENERAL: Elderly female supine in bed, intubated SKIN: Warm and dry. HEAD: Normocephalic. EYES: No injection or drainage. NECK: Supple, trachea midline. CARDIOVASCULAR: +S1/S2 RESPIRATORY: Anterior huston with occasional rhonchi. On mechanical ventilation. GASTROINTESTINAL: Abdomen soft, non-tender, nondistended. EXTREMITIES: No cyanosis NEUROLOGICAL Pt making eye contact with her of 73 years. Remains on the vent. Assessment/Plan Problem List: (1) Chronic ITP (idiopathic thrombocytopenia) ICD Codes: D69.3 - Immune thrombocytopenic purpura Plan: --acute drop in platelet count likely from acute illness, DIC, and consumption. --on Promacta 50 mg daily. --recommend transfusing for platelets less than 20k. --If the family does opt for valvuloplasty would recommend giving 2 units platelets prior and also to hang one during the procedure. --Thrombocytopenia due to sepsis/acute illness--also with hx of ITP --will avoid IVIG due to recent hx of DVT (2) CAD (coronary artery disease) ICD Codes: I25.10 - Atherosclerotic heart disease of [place] coronary artery without angina pectoris Plan: -- Undergone left and right heart catheterization for her TAVR evaluation. -- After right heart cath, she developed acute massive hemoptysis with shock secondary to acute rupture of pulmonary artery. -- She underwent cardiac cath which identified bleeding from a small branch of the left pulmonary artery. Six coils were placed in the left lower artery. The patient was subsequently extubated. However, her respiratory status declined yesterday. She was on BiPap. She was again intubated due to worsening hypoxemic respiratory failure. -- There are plans for valvuloplasty on Friday; however the patient's son and spouse are contemplating comfort care only. (3) DVT (deep venous thrombosis) ICD Codes: I82.409 - Acute embolism and thrombosis of unspecified deep veins of unspecified lower extremity Plan: --no anticoagulation for now due to thrombocytopenia until sustained platelet count of = >35,000 is achieved Assessment 89-year-old female with history of severe aortic stenosis underwent left and right heart catheterization for her TAVR evaluation. After right heart cath, she developed acute massive hemoptysis with shock secondary to acute rupture of pulmonary artery. She was intubated. She became hypotensive and started on dopamine and Shantanu-Synephrine. Levophed was also added. She was a given blood product support with three units of packed red blood cells, two units of FFP, and one unit of platelets. She also developed a V-tach and V-fib and received brief CPR. She was DC cardioverted x1 and returned to spontaneous circulation and sinus rhythm. A PARVIN was performed which showed vigorous LV contraction but the cavity was empty. She received continuous massive fluid resuscitation with multiple crystalloid boluses bicarbonate and calcium. She underwent cardiac cath which identified bleeding from a small branch of the left pulmonary artery. Six coils were placed in the left lower artery. The patient was subsequently extubated. However, her respiratory status declined and she was reintubated. Plan 1. Noted fibrinogen level of 144. We'll give 1 unit of cryoprecipitate 2. Thrombocytopenia improved today after transfusion of platelets yesterday. 3. Continue Promacta 50 mg daily. 4. Hold anticoagulation until platelets consistently greater [place] [id number]. Discussed with RN Attending Statement The exam, history, and the medical decision-making described in the above note were completed with the assistance of the mid-level provider. I reviewed and agree with the findings presented. I attest that I had a [id number] encounter with the patient on the same day, and personally performed and documented my assessment and findings in the medical record Problem Qualifiers (1) DVT (deep venous thrombosis): Melody Morelos Jul 02, 2017 11:09 Lucius Ortega MD Jul 02, 2017 23:11
[2017-07-02] MEDS ORDERED: FUROSEMIDE 40 MG/4 ML VIAL IV PUSH ONE (11:30)
--- NOTE | 2017-07-02 15:36 | PD.CARD.PN ---
Subjective Subjective Remarks Overnight events Aspiration Resp Failure Flash Pulmonary Edema afebrile weaning FIO2 Objective Medications Current Medications Medications (Trade) Dose Ordered Sig/Padmini Route Start Time Stop Time Status Last Admin (K-Lyte Cl Eff) 50 meq UNSCH PRN PO 06/03/17 19:15 (Mag-Ox) 800 mg UNSCH PRN PO 06/03/17 19:15 (K-Phos) 2,000 mg Q4H PRN PO 06/03/17 19:15 (K-Phos) 2,000 mg UNSCH PRN PO/TUBE 06/03/17 19:15 (D50w (Vial) Inj) 50 ml UNSCH PRN IV PUSH 06/04/17 12:15 (Glucagon Inj) 1 mg UNSCH PRN OTHER 06/04/17 12:15 (Lopressor Inj) 1.25 mg Q6H PRN IV PUSH 06/04/17 19:15 06/30/17 07:30 (Colace Liq) 100 mg Q12HR PO 06/05/17 14:00 07/02/17 09:58 (K-Lyte Cl Eff) 25 meq Q12HR PO 06/05/17 14:00 07/02/17 09:58 (Lanoxin) 0.125 mg DAILY PO 06/06/17 09:00 Future Hold 06/28/17 10:09 (Cozaar) 50 mg DAILY PO 06/07/17 09:00 Future hold 07/02/17 10:00 (Synthroid) 50 mcg DAILY@0600 PO 06/07/17 08:00 07/02/17 04:58 (Pill Splitter) 1 ea UNSCH PRN OTHER 06/07/17 22:15 (NovoLOG SUPPLEMENTAL SCALE) 1 BID@0800,2000 SQ 06/08/17 20:00 07/01/17 08:17 (Mycostatin Liq) 5 ml QID SWISH-SWAL 06/12/17 13:00 07/02/17 12:53 (Pulmicort Respule Neb) 0.5 mg Q12HR NEB NEB 06/16/17 11:15 07/02/17 07:46 (Tylenol 650 Mg/ 20 ml Liq) 650 mg Q6H PRN PO 06/18/17 06:30 06/26/17 05:11 (Zofran Inj) 4 mg Q6H PRN IV PUSH 06/22/17 19:30 06/23/17 08:40 (Mucinex Er) 600 mg BID PO 06/23/17 10:15 07/02/17 09:58 (Reglan Inj) 5 mg Q8HR IV PUSH 06/23/17 17:45 07/02/17 14:22 (Miralax) 17 gm DAILY PO 06/25/17 09:45 07/02/17 09:57 (Melatonin) 5 mg HS PRN PO 06/25/17 16:15 Albumin Human 100 ml @ 60 mls/hr Q12H IV 06/26/17 18:00 07/02/17 04:59 (Peridex 0.12% Liq) 15 ml BID@08,20 MT 06/27/17 20:00 07/02/17 08:01 Potassium Chloride 100 ml @ 50 mls/hr Q2H PRN IV 06/28/17 11:00 Potassium Chloride 100 ml @ 50 mls/hr Q2H PRN IV 06/28/17 11:00 06/28/17 12:32 (K-Lyte Cl Eff) 50 meq UNSCH PRN PO 06/28/17 11:00 Potassium Chloride 100 ml @ 25 mls/hr UNSCH PRN IV 06/28/17 11:00 06/30/17 06:06 Potassium Chloride 100 ml @ 50 mls/hr Q2H PRN IV 06/28/17 11:00 07/01/17 06:50 Magnesium Sulfate 4 gm/Sodium Chloride 100 ml @ 50 mls/hr UNSCH PRN IV 06/28/17 11:00 (Mag-Ox) 800 mg UNSCH PRN PO 06/28/17 11:00 Magnesium Sulfate 2 gm/Sodium Chloride 100 ml @ 50 mls/hr UNSCH PRN IV 06/28/17 11:00 (K-Phos) 2,000 mg Q4H PRN PO 06/28/17 11:00 Sodium Phosphate 30 mmol/Sodium Chloride 250 ml @ 42 mls/hr UNSCH PRN IV 06/28/17 11:00 (K-Phos) 2,000 mg UNSCH PRN PO/TUBE 06/28/17 11:00 Potassium Phosphate 30 mmol/ Sodium Chloride 260 ml @ 42 mls/hr UNSCH PRN IV 06/28/17 11:00 (Protonix Inj) 40 mg Q12H IV PUSH 06/28/17 21:00 07/02/17 09:58 (Apresoline Inj) 20 mg Q4H PRN IV PUSH 06/28/17 18:00 07/02/17 10:20 Cefepime HCl 1000 mg/Sodium Chloride 100 ml @ 200 mls/hr Q12HR IV 06/29/17 09:00 07/02/17 09:00 (Atrovent Neb) 0.5 mg Q6HR NEB NEB 06/29/17 16:00 07/02/17 07:46 (Promacta) 50 mg DAILY@1000 PO 06/30/17 10:00 07/02/17 10:00 Dexmedetomidine HCl 200 mcg/ Sodium Chloride 50 ml @ 2.85 mls/hr TITRATE PRN IV 06/29/17 19:00 06/30/17 13:28 (Apresoline) 50 mg Q8HR PO 06/30/17 06:45 07/02/17 14:23 (Catapres) 0.2 mg Q6H PRN PO 06/30/17 08:00 07/02/17 02:39 (Lopressor) 100 mg BID PO 06/30/17 21:00 07/02/17 10:00 (SoluMEDROL INJ) 40 mg Q12HR IV PUSH 06/30/17 21:00 07/02/17 09:57 (Cardizem) 30 mg Q6H PO 07/01/17 13:00 07/02/17 12:53 Sodium Chloride 250 ml @ 15 mls/hr ONCE ONCE IV 07/02/17 09:15 07/03/17 01:54 07/02/17 10:01 Vital Signs / I&O Vital Signs Date Time Temp Pulse Resp B/P (MAP) Pulse Ox O2 Delivery O2 Flow Rate FiO2 07/02/17 12:54 98 40 07/02/17 11:43 40 Mechanical Ventilator 97 07/02/17 11:30 97 40 07/02/17 11:05 98.2 70 30 191/77 98 07/02/17 11:00 98.2 86 17 181/72 (108) 97 07/02/17 11:00 40 07/02/17 11:00 75 07/02/17 11:00 99 Mechanical Ventilator 40 07/02/17 10:55 98.2 79 30 187/74 98 07/02/17 10:40 98.4 82 28 181/73 97 07/02/17 10:35 99 40 07/02/17 10:35 40 07/02/17 10:24 97.8 83 17 99 07/02/17 09:50 99 40 07/02/17 07:50 99 40 07/02/17 07:00 97 Mechanical Ventilator 40 07/02/17 07:00 98.6 83 17 164/90 (114) 98 191/81 (117) 07/02/17 07:00 80 07/02/17 07:00 40 07/02/17 04:00 96.8 76 15 148/66 (93) 96 160/61 (94) 07/02/17 03:45 78 07/02/17 03:41 40 07/02/17 03:41 98 Mechanical Ventilator 40 07/02/17 03:33 97 40 07/02/17 01:20 97 40 07/02/17 00:00 98.4 80 16 170/90 (116) 97 194/75 (114) 07/01/17 23:30 77 07/01/17 23:19 40 07/01/17 23:19 98 Mechanical Ventilator 40 07/01/17 22:35 97 40 07/01/17 20:20 95 40 07/01/17 20:00 98.0 86 16 158/71 (100) 98 186/69 (108) 07/01/17 19:45 40 07/01/17 19:45 98 Mechanical Ventilator 40 07/01/17 19:10 90 07/01/17 17:10 98 40 I/O 07/01/17 07/01/17 07/01/17 07/02/17 07/02/17 07/02/17 07:00 15:00 23:00 07:00 15:00 23:00 Intake Total 435 ml 200 ml 1670 ml 1080 ml 335 ml Output Total 1700 ml 750 ml 775.0 ml Balance -1265 ml 200 ml 920 ml 305.0 ml 335 ml Intake Oral 0 ml IV Total 35 ml 200 ml 1080 ml Tube Feeding 433 ml Albumin 100 ml Platelets 537 ml Cryoprecipitate 235 ml Blood Product IV Normal Saline Flush 200 ml 200 ml 100 ml Other 400 ml 200 ml Output Urine Total 1700 ml 750 ml 750 ml Tube Feeding Residual Discard 25.0 ml # Bowel Movements 1 2 3 Physical Exam GENERAL: Intubated, pupils reactive, Alert, awake, oriented SKIN: Warm and dry. HEAD: Normocephalic. EYES: No scleral icterus. No injection or drainage. NECK: Supple, trachea midline. No JVD or lymphadenopathy. CARDIOVASCULAR: Irr Irr 2/6SEM no gallops, or rubs. RESPIRATORY: Vented. GASTROINTESTINAL: Abdomen soft, non-tender, nondistended. EXTREMITIES: No cyanosis, or edema. Laboratory Laboratory Tests Test 07/02/17 04:55 White Blood Count 9.6 TH/MM3 Red Blood Count 3.37 MIL/MM3 Hemoglobin 9.9 GM/DL Hematocrit 29.3 % Mean Corpuscular Volume 87.1 FL Mean Corpuscular Hemoglobin 29.5 PG Mean Corpuscular Hemoglobin Concent 33.8 % Red Cell Distribution Width 17.3 % Platelet Count 32 TH/MM3 Mean Platelet Volume 9.9 FL Neutrophils (%) (Auto) 85.7 % Lymphocytes (%) (Auto) 4.6 % Monocytes (%) (Auto) 9.7 % Eosinophils (%) (Auto) 0.0 % Basophils (%) (Auto) 0.0 % Neutrophils # (Auto) 8.2 TH/MM3 Lymphocytes # (Auto) 0.4 TH/MM3 Monocytes # (Auto) 0.9 TH/MM3 Eosinophils # (Auto) 0.0 TH/MM3 Basophils # (Auto) 0.0 TH/MM3 CBC Comment AUTO DIFF Differential Comment AUTO DIFF CONFIRMED Platelet Estimate LOW Platelet Morphology Comment NORMAL Ovalocytes 1+ Fibrinogen 144 mg/dL Blood Urea Nitrogen 100 MG/DL Creatinine 1.27 MG/DL Random Glucose 168 MG/DL Total Protein 6.3 GM/DL Albumin 3.9 GM/DL Calcium Level 8.9 MG/DL Alkaline Phosphatase 110 U/L Aspartate Amino Transf (AST/SGOT) 14 U/L Alanine Aminotransferase (ALT/SGPT) 28 U/L Total Bilirubin 0.8 MG/DL Sodium Level 151 MEQ/L Potassium Level 3.7 MEQ/L Chloride Level 112 MEQ/L Carbon Dioxide Level 30.5 MEQ/L Anion Gap 9 MEQ/L Estimat Glomerular Filtration Rate 40 ML/MIN Assessment and Plan Problem List: (1) Respiratory failure ICD Codes: J96.90 - Respiratory failure, unspecified, unspecified whether with hypoxia or hypercapnia (2) Shock, postoperative ICD Codes: T81.10XA - Postprocedural shock unspecified, initial encounter Status: Resolved (3) Pulmonary arterial thrombosis ICD Codes: I26.99 - Other pulmonary embolism without acute cor pulmonale Status: Acute (4) CAD (coronary artery disease) ICD Codes: I25.10 - Atherosclerotic heart disease of [place] coronary artery without angina pectoris (5) Aortic stenosis ICD Codes: I35.0 - Nonrheumatic aortic (valve) stenosis (6) DVT (deep venous thrombosis) ICD Codes: I82.409 - Acute embolism and thrombosis of unspecified deep veins of unspecified lower extremity Problem Qualifiers (1) Respiratory failure: Qualified Codes: J96.01 - Acute respiratory failure with hypoxia (2) DVT (deep venous thrombosis): Brad Page MD Jul 02, 2017 15:36
[2017-07-03] VITALS (10 sets, daily range): BP systolic 152–168; BP diastolic 65–80; PULSE 75–87; RESP 14–15; TEMP 97.8–100.5; O2SAT 96–98
[2017-07-03] MEDS: DILTIAZEM HCL 30 MG TAB PO SCH ×4 (01:00→17:51)
[2017-07-03] MEDS: cloNIDine HCL 0.2 MG TAB PO PRN (02:00)
[2017-07-03] MEDS: RESP: IPRATROPIUM 0.5 MG/2.5 ML NEB NEB SCH ×4 (03:59→21:38)
[2017-07-03] MEDS: METOCLOPRAMIDE HCL 10 MG/2 ML VIAL IV PUSH SCH ×3 (06:00→22:00)
[2017-07-03] MEDS: LEVOTHYROXINE SODIUM 50 MCG TAB PO SCH (06:00)
[2017-07-03] MEDS: ALBUMIN 25% INJ 100 ML IV SCH ×2 (06:00→17:51)
[2017-07-03] MEDS: hydrALAZINE HCL 50 MG TAB PO SCH ×3 (06:00→22:00)
[2017-07-03] MEDS: CHLORHEXIDINE 0.12% (ORAL KIT) 15 ML CUP MT SCH ×2 (08:00→20:00)
[2017-07-03] MEDS: INSULIN ASPART SUPPLEMENTAL SCALE SQ SCH ×2 (08:00→20:00)
[2017-07-03] MEDS: RESP: BUDESONIDE 0.5 MG/2 ML NEB NEB SCH ×2 (08:00→21:38)
[2017-07-03] MEDS: LOSARTAN 50 MG TAB PO SCH (08:29)
[2017-07-03] MEDS: methylPREDNISolone SOD SUCC 40 MG/1 ML VIAL IV PUSH SCH ×2 (08:29→21:00)
[2017-07-03] MEDS: PANTOPRAZOLE SODIUM 40 MG VIAL IV PUSH SCH ×2 (08:29→21:00)
[2017-07-03] MEDS: CEFEPIME 1000 MG/NS 100 ML IV SCH ×4 (08:29→21:00)
[2017-07-03] MEDS: DOCUSATE SODIUM 100 MG/10 ML UDC PO SCH ×2 (08:29→21:00)
[2017-07-03] MEDS: POLYETHYLENE GLYCOL 17 GM PKG PO SCH (08:30)
[2017-07-03] MEDS: POTASSIUM CHLORIDE 25 MEQ EFFERVESCENT TAB PO SCH ×2 (08:30→21:00)
[2017-07-03] MEDS: NYSTATIN SUSP 500,000 U/5 ML CUP SWISH-SWAL SCH ×4 (08:30→21:00)
[2017-07-03] MEDS: METOPROLOL TARTRATE 100 MG TAB PO SCH ×2 (08:30→21:00)
[2017-07-03] MEDS: guaiFENesin E.R. 600 MG TAB PO SCH ×2 (08:30→21:00)
[2017-07-03] MEDS: ELTROMBOPAG 50 MG TAB PO SCH (10:00)
[2017-07-03] MEDS: hydrALAZINE HCL 20 MG/ML VIAL IV PUSH PRN (10:29)
[2017-07-03] MEDS: ACETAMINOPHEN 650 MG/20.3 ML UDC PO PRN (10:39)
[2017-07-03 10:56] LABS: ALKALINE PHOSPHATASE 145 U/L (45-117); ALT (GPT) 56 U/L (10-53); ANION GAP 9 MEQ/L (5-15); AST (GOT) 36 U/L (15-37); BICARBONATE 28.7 MEQ/L (21.0-32.0); CHLORIDE 112 MEQ/L (98-107); GLOMERULAR FILTRATION RATE 40 ML/MIN (>89); POTASSIUM 5.1 MEQ/L (3.5-5.1); SODIUM (NA) 150 MEQ/L (136-145); TOTAL BILIRUBIN ADULT 1.1 MG/DL (0.2-1.0)
[2017-07-03 10:57] LABS: BLOOD UREA NITROGEN 102 MG/DL (7-18)
--- NOTE | 2017-07-03 11:53 | HHI.CCPN ---
Subjective Remarks/Hospital Course I was emergently called to lab clerk by Dr. Corrales. Ms. Mahoney who is 89 yo female with history of severe aortic stenosis was undergoing left and right heart catheter for TAVR evaluation. With right heart catheterization patient developed acute massive hemoptysis with shock secondary to acute rupture of pulmonary artery. Patient was intubated by Dr. Potter and ETT was advance to Right lung for selective right lung ventilation due to massive hemorrhage from Left lung. On my arrival to lab clerk, patient was rapidly dropping blood pressure. Dopamine was already started. I ordered Shantanu-Synephrine, at 300 mcg/ m in an attempt to increase MAP and also increase the pulmonary vasoconstriction. Levophed was also added to maintain blood pressure and rapidly titrated up. Emergency release blood initially 3 units was ordered stat along with 2 units of FFP, 1 unit of platelet. I also emergently contacted Dr. Vásquez was in the office. (Dr. Bedoya the on-call CT surgeon was operating). While on Levophed Shantanu-Synephrine and dopamine, patient developed coarse V. fib/V. tach, received brief CPR, and was DC cardioverted 1 with return of spontaneous circulation and sinus rhythm. I discussed with Dr. Corrales and anesthesiologist, I also contacted Dr. Josue from invasive radiology.Dr. Josue immediately arrived to the lab clerk. Dr. Abdelrahman francis performed PARVIN which showed vigorous LV contraction but cavity was empty. Received Continuous massive fluid resuscitation with multiple crystalloid boluses, bicarbonate and calcium. Blood arrived and initially 3 units of PRBC, 2 units of 1 unit of platelets was given with calcium total 3 g given after blood transfusion. Because of persistent hypotension, additional 2 units of PRBC was given. While I resuscitated the patient, Dr. Corrales and Dr. Jennings performed right heart cath, identified bleeding of a small branch in the left pulmonary artery. They put put in 6 coils in the lower left lower pulmonary artery followed with Gelfoam closing the perforation. 06/04: Emergency chest 2 yesterday for right pneumothorax with hypotension and hypoxia. Remains intubated sedated and on Levophed. FiO2 remains at 100%, Sat improving to 94-95 %. UO adequate overnight. 2-D echo on my review normal LV and RV function, no PFO on bubble study 06/05: Patient is in atrial fibrillation currently on Cardene infusion for blood pressure control. Chest x-ray shows percutaneous emphysema and small apical pneumothorax. Remains on 80% FiO2. I discussed with interventional radiology. We will attempt CT-guided repositioning of the pigtail catheter and possibly upgrading to a larger tube. Urine output adequate 750 mL in 24 hours 06/06: Currently remains in A. fib with rate controlled, hypertensive on Cardizem drip. Oxygen saturation has improved FiO2 now to 40% with saturation 97%. Urine output excellent with Lasix 4.5 L in 24 hours. Chest x-ray today shows 2.5 cm bilateral apical pneumothorax, also left side has 1.2 cm lateral pneumothorax 06/07: Intubated, on low dose propofol for ventilator synchrony. FiO2 40% oxygen saturation 99%. Chest x-ray and labs pending urine output 2.7 L. 3 chest tubes with no air leak. If neuro exam not improving off sedation will check CT of the head. Currently on propofol will gear changer to Precedex to initiate weaning trials. On weaning doses of inhaled Flolan currently on 30, 000 ng 06/08: Remains intubated, mild sedation with Precedex. Overnight FiO2 increased to 65% for hypoxia. CXR left more than right consolidation of lower lobes. Sputum positive for MRSA on vancomycin. Bilateral lower extremity US studies yesterday showed DVT, initiated on IV heparin. Currently therapeutic on heparin. No evidence of pulmonary hemorrhage. Neuro exam is improving weekly follows commands all 4 extremities 06/09: remains intubated. failed CPAP yesterday. on Cleviprex and precedex. fio2 back to 40%. CXR improved aeration with the exception of known LLL. FC x 4. 06/10: failed SBT again for apnea. but much more awake. denies pain. ROS negative. off cleviprex. new air leak in chest tube. will get chest xray to re- eval. 06/11: Warm, well perfused. Alert, cooperative. Communicates with head nod, hand gestures. Comfortable respiratory pattern and acceptable excursions.Air leaks will seal when off positive pressure ventilation. FiO2 to 0.80 last night briefly; now 0.40. I'll come back later today and see if I can get her extubated. 06/12: Required re-intubation for hypoxemic respiratory failure last evening. She is now warm with well perfused fingers and toes. Low dose levophed not hampering peripheral perfusion. Mild prerenal azotemia. CXR with diffuse infiltrates as before. WBC 32,00, afebrile. Must assume colonized lungs at least. Antibiotic coverage is appropriate. Reculture sputum, urine. Progress to weaning trials daily.Hemodynamics appear excellent, rate a minor problem pretty well controlled. Continue Vanc. Stop pip/roxi, start cefepime. Narrow after cultures. Change CVLs, draw blood cultures. 06/13: Persistent leukocytosis, Tmax 100.2. O2 diffusion acceptable on positive pressure ventilation. Sputum culture pending. Remains warm and well perfused. Continue daily spontaneous breathing trials. 06/14: Bronch and BAL this morning by Dr. Muñoz. Gas exchange remains acceptable. Continue SBTs. 06/15: Looks great on SBTs/CPAP. She would benefit from a temporary tracheostomy. But she will eventually be off and extubated for good. C&S pending from BAL. Continue present abx regimen - discussed with Dr. Segura. 06/16: Awake alert following commands on vent. Currently on Precedex 0.5 g per KG per hour. Still has large amount of ETT secretions, but improving. R pigtail dislodged with turning, no pneumo on repeat CXR 06/17: Awake alert on low dose Precedex. Tolerated CPAP yesterday. Not extubated yesterday due copious bloody secretions. The chest x-ray shows some interval improvement and secretions slightly improved. Will proceed with SBT and possible extubation 06/18: Extubated yesterday tolerating very well. Coughing up sputum, cough seems adequate. Slight increase in WBC to 19.1. Received single dose of Decadron yesterday. Overall doing well communicating, no fever 06/19: WBC count slightly improved 17.9. Otherwise breathing comfortably. Single episode of delirium overnight. Will remove Payne today and also remove right chest tube 06/20: Up in chair, labs pending. CXR showing slight increase in L effusion. Will check bedside US. [facility] Re consult Note: 06/26/17: Critical care reconsulted for acute desaturation. After patient was sat on the side of the bed and when put back in the bed she acutely desaturated to mid 70s. Placed on nonrebreather and I was asked to evaluate the patient by Dr. Corrales. On my exam patient is in moderate distress, diffuse crackles on the chest. Stat chest x-ray shows acute change from chest x-ray 2 days ago. Bilateral diffuse interstitial and alveolar infiltrates with bilateral pleural effusions consistent with CHF. IV 20 mg Lasix given stat. Payne reinserted. Stat Bumex infusion started and transfer to ICU stat and placed on BiPAP 12 over 5. At this time does not need reintubation but this is a possibility 06/27: Remains on BiPAP overnight, slightly tachypneic but oxygen saturation 97 % on 55% FiO2. Chest x-ray shows improved bilateral infiltrate indicating improving CHF. After receiving additional Lasix and Bumex infusion urine output approximately 800 ml in 24 hours. Bumex infusion was increased to 1 mg per hour. UA shows evidence of UTI. Platelet count dropped to 57, most likely secondary to sepsis. DC Zyvox start vancomycin reconsult ID. Cefepime was added yesterday 06/28: Intubated yesterday noon due to acute worsening of hypoxemic respiratory failure. Remains intubated sedated critically ill though stabilizing. WBC count has normalized to 9.9 but platelet count further decreased to 32. I will increase Solu-Medrol 40 every 8 hours and get hematology consult. BUN/ creatinine 50/1.39, slightly worsened but urine output remains excellent a terminal overnight. Plan for right thoracentesis today after FFP and platelet transfusion. Currently only on 2 mcg/m of Levophed. 2 D Echo yesterday showed increased mean gradient. May need BAV as bridge to TAVR (secondary to flash pulmonary edema and heart failure) 06/29: Patient remains intubated sedated. Remains critically ill. Chest x-ray remained stable to slightly increased pulmonary vascular congestion. Platelet count has further dropped 34, Hb stable at 10.5. Hematology is following on IV steroids and Promacta. Dr. Ortega considering IVIG. With low platelet, Coumadin is on hold. Will start IV Heparin for LE DVT (US 06/07/17) when cleared by Hematology INR is 1.[address] Corrales to decide on BAV. UO 2.6L in 24 hours 06/30: Patient is off sedation more awake follows commands intermittently. On attempted CPAP with pressure support 15 becomes slightly tachypneic. Urine output 2.5 L in 24 hours BUN elevated to 78 creatinine 1.5. CBC downtrending hemoglobin remained stable. Platelet count dropped to 30 without evidence of bleeding. Anticoagulation on hold due to severe thrombocytopenia. Family declines further invasive treatment 07/01: Remains orally intubated on mechanical ventilation. Worsening thrombocytopenia. No active bleeding currently. Family does not want further invasive measures and patient is alternate code currently. They have declined PEG tube placement. 07/02: Remains orally intubated on mechanical ventilation. Failed C Pap trial after 1.5 hours yesterday. Family wants palliative care per discussion with nursing yesterday - defer to Dr. Corrales. 07/03: Awake, orally intubated on mechanical ventilation. Awaiting C Pap trial this morning at the time of my evaluation. Objective Vital Signs Date Time Temp Pulse Resp B/P (MAP) Pulse Ox O2 Delivery O2 Flow Rate FiO2 07/03/17 04:00 76 07/03/17 04:00 97.9 14 164/80 (108) 98 07/03/17 04:00 40 07/03/17 04:00 Mechanical Ventilator Intake and Output 07/03/17 07/03/17 07/04/17 08:00 16:00 00:00 Intake Total 691 ml Output Total 1030 ml Balance -339 ml Result Diagram: 07/02/17 0455 07/03/17 0952 Imaging Last 48 hours Impressions Chest X-Ray 07/01/17 0600 Signed Impressions: Service Date/Time: Saturday, July 01, 2017 05:19 - CONCLUSION: Tubes and catheters are in good position. Worsening infiltrate throughout the right lung since previous study. Moderate left pleural effusion is unchanged. Domingo Claire MD Objective Remarks GENERAL: Lying in bed off all sedation SKIN: Skin/dry. ENT: Oral cavity is moist. Orotracheally intubated. NECK: Trachea midline. Supple. Positive JVD CARDIOVASCULAR: Remains in atrial fibrillation rate controlled now, but hypertensive. Systolic murmur over apex and LSB. RESPIRATORY: Air entry equally diminished with bilateral crackles, improving, few scattered wheezes. GASTROINTESTINAL: Abdomen Soft, no guarding. BS active. MUSCULOSKELETAL: Limbs well perfused. UE edematous NEUROLOGICAL: Intubated off sedation. Moves extremities, weakly following commands all four extremities Date of Insertion: Jun 27, 2017 Side: Right Location: Internal, Jugular A/P Assessment and Plan Assessment: 89yF with severe aortic stenosis, admitted to ICU after RHC complicated by Pulmonary Artery rupture, pneumothorax secondary to barotrauma, MRSA healthcare associated pneumonia. Now placed back in ICU with acute hypoxic respiratory failure, from flash pulmonary edema due to diastolic CHF and also with sepsis. Worsening acute kidney injury on thrombocytopenia is concerning. Unable to anticoagulate for bilateral DVTs due to severe thrombocytopenia NEURO: - Precedex to facilitate vent weaning if needed, daily sedation vacation. Currently off all sedation - Holding home sertraline. Tylenol PRN - Initial CT of the head and C-spine negative for acute injury RESP: Acute hypoxemic respiratory failure Pulmonary edema/pleural effusions s/p Left lower pulmonary artery rupture with massive hemorrhage 06/03/17 MRSA pneumonia Previous Large Left hemothorax s/p IR chest tube placement, residual L pneumo after evacuation Previous Bilateral apical pneumothorax Bilateral lower extremity DVT - Transferred to ICU 06/26/17 initiated on BiPAP 12. Intubated 06/27/17 for worsening hypoxemic respiratory failure - Continue ACV, FiO2 down to 40% PEEP 8. daily SBT, becomes tachypneic when pressure-support below 15. - Scheduled DuoNeb every 6 hours and when necessary. Continue INH Budesonide - Chest x-ray 06/26 shows extensive bilateral interstitial and alveolar infiltrates with bilateral pleural effusions consistent with acute CHF exacerbation - CXR 06/27 interval improvement in pulmonary edema, CXR 06/30 stable - s/p coil and Gelfoam closure of Left lower pulmonary artery (peripheral small branch) by Rhoda Corrales and Michaela (see resuscitation note on 06/03/17) - Last Extubated 06/16/17. Previously Required re-intubation 06/02 for hypoxemia - Prev Sputum with MRSA. (Was on Zyvox, Levaquin-see ID section for new ABX) - Previously s/p chest tube x2 for right pneumothorax on 06/03. New apical chest tube placed 06/06/17 - IR, placed 24 F Left chest tube 06/05 with drainage of 2 L hemothorax, residual pneumothorax present, now resolved - s/p Bronchoscopy on 06/03/17 with removal of blood predominantly from L lung, s/p repeat bronch 06/06, 06/15 - Venous duplex -bilateral lower extremity DVT. Start heparin IV when plt count >35K per hematology CV/Heme: CHF/pulmonary edema Acute Diastolic HF exacerbation Severe Aortic Stenosis Atrial fibrillation with RVR Thrombocytopenia secondary to sepsis and ITP Bilateral lower extremity DVT History of ITP - Discussed extensively with Dr. Corrales. Echo 06/27 shows lulu with mean gradient of 42, LATIA 0.49. Heart failure is secondary to severe aortic stenosis and diastolic dysfunction - Patient's family is not interested in pursuing any further invasive procedures including BAV - High chance of failure, if extubated without valvuloplasty, patient most likely have recurrent heart failure and also has significant weakness - IV Lasix held due to worsening BUN/creatinine -Follow urine output - Continue IV steroid for ITP, IV Solu Medrol 40 mg ever 8 hours-reduce to 40 q12 as refractory disturbance and BUN climbing - Continue Promacta for ITP. Hematology Dr. Ortega following, he may consider IVIG, he is aware of LE DVT - Start IV Heparin once plt >35K - Continue Cardizem PO. Continue metoprolol, 50 mg by mouth every 8 hours. Home dose of digoxin - Cozaar 50 mg daily. Add Hydralazine 50 mg PO q8 (patient is well beta blocked) . Add clonidine 0.2 mg PO q6 PRN - Previously Received 6 units of PRBC, 2 units of FFP and one of platelets 06/03. PARVIN normal LV contractility, volume depletion - 2D Echo 06/04 RV LV function look normal, no PFO. 2 D Echo 06/27 good LV fn, concentric LVH, sev MG 42 GI: Ileus - KUB shows improving ileus06/25, Tube feeds with Jevity - Continue IV Reglan, GI following / Renal: ENZO - Monitor renal function closely. Payne catheter. Urine output adequate - lasix cautiously in v/o rising BUN. ID: Sepsis UTI Prev MRSA pneumonia - Started on cefepime 06/26/17 for severe sepsis, will continue. ID Dr. Segura DCd Teflaro, Micafungin and Levaquin on 06/29/17 - Prev BAL culture MRSA. - All recent cultures have been negative ENDO: - Replace electrolytes per protocol PROPH: - No SCDs due to DVT. IV Protonix-change to famotidine due to thrombocytopenia. Coumadin on hold, due to severe thrombocytopenia. Resume when cleared by hematology LINES: - RIJ central line placed 06/27 accidentally dislodged, new left IJ central line placed 06/28/17 Overall impression: Critically ill with acute hypoxemic respiratory from CHF exacerbation, secondary to diastolic dysfunction and severe . D/W Dr. Corrales. Course Complicated by persistent thrombocytopenia, renal failure and overall generalized weakness. Family not interested in pursuing invasive procedures. Family meeting held by Dr. Esquivel and Dr. Corrales on 06/30. Changed to alternate CODE STATUS. Family wishes to pursue palliative care-defer to Dr. Corrales. Prognosis appears poor. Patient extremely high risk for reintubation. We'll continue on mechanical ventilation as patient failing C Pap trials/ Family does not want further aggressive measures and are leaning towards comfort measures probably rather then continuing aggressive care at this time. Patient has failed extubation on multiple occasions. Worsening renal function noted. They do not want tracheostomy or PEG tube placement. Await Dr. Corrales to discuss further with family as they wish to talk to palliative care team. Level 3 Dion Segura MD Jul 03, 2017 11:53
[2017-07-03] MEDS ORDERED: FUROSEMIDE 40 MG/4 ML VIAL IV PUSH ONE (12:00)
--- NOTE | 2017-07-03 12:31 | RADRPT ---
EXAM DATE/TIME: 07/03/2017 12:03 [facility] COMPARISON: CHEST SINGLE AP, July 01, 2017, 5:19. INDICATIONS : Short of breath MEDICAL HISTORY : Hypercholesterolemia. Hypothyroidism. Congestive heart failure. SURGICAL HISTORY : Tonsillectomy. Pacemaker. ENCOUNTER: Initial ACUITY: 3 weeks PAIN SCORE: Non-responsive. LOCATION: chest FINDINGS: The support devices remain in place. There is no pneumothorax. There appears to be some improved aera tion of the right lung compared to the prior exam. There continues to be some infiltrates in both adelina g bases. There is blunting of both costophrenic angles which appears to be stable. The heart size is stable. The bony structures are stable. CONCLUSION: 1. Mild improved aeration of the right lung compared to the prior exam. 2. There continues to be infiltrates in both lung bases without significant change. Aleksey Au MD on July 03, 2017 at 12:28 Board Certified Radiologist. This report was verified electronically.
[2017-07-03 12:36] LABS: HEMATOCRIT 28.1 % (35.0-46.0); MEAN CELL VOLUME 86.5 FL (80.0-100.0); MEAN CORPUSCULAR HEMOGLOBIN 28.7 PG (27.0-34.0); MEAN CORPUSCULAR HGB CONC 33.2 % (32.0-36.0); PLATELET COUNT 55 TH/MM3 (150-450); RED BLOOD COUNT 3.24 MIL/MM3 (4.00-5.30); RED CELL DISTRIBUTION WIDTH 16.6 % (11.6-17.2)
[2017-07-03 12:41] LABS: REVIEW FLAG FINAL
--- NOTE | 2017-07-03 12:44 | PD.ONC.PN ---
Subjective Subjective Remarks respiratory failure still intubated no bleeding episodes Objective Data Date Time Temp Pulse Resp B/P (MAP) Pulse Ox O2 Delivery O2 Flow Rate FiO2 07/03/17 12:11 22 07/03/17 11:50 40 07/03/17 04:00 76 07/03/17 04:00 97.9 75 14 164/80 (108) 98 07/03/17 04:00 40 07/03/17 04:00 98 40 07/03/17 04:00 98 Mechanical Ventilator 40 07/03/17 00:58 97 40 07/03/17 00:00 97 Mechanical Ventilator 40 07/03/17 00:00 75 07/03/17 00:00 40 07/03/17 00:00 98.0 75 14 165/79 (107) 97 Arterial Line 07/02/17 20:35 97 40 07/02/17 20:00 80 07/02/17 20:00 97.9 81 14 156/69 (98) 97 158/72 (100) 07/02/17 20:00 40 07/02/17 20:00 97 Mechanical Ventilator 40 07/02/17 16:15 98 40 07/02/17 15:00 40 Mechanical Ventilator 97 07/02/17 15:00 97.4 77 14 132/55 (80) 97 07/02/17 15:00 40 07/02/17 15:00 77 07/02/17 12:54 98 40 07/03/17 07/03/17 07/03/17 07:00 15:00 23:00 Intake Total 691 ml Output Total 1030 ml Balance -339 ml Result Diagram: 07/03/17 1151 07/03/17 0952 Laboratory Results Laboratory Tests Test 07/03/17 09:52 07/03/17 11:51 Blood Urea Nitrogen 102 MG/DL Creatinine 1.25 MG/DL Random Glucose 144 MG/DL Total Protein 6.6 GM/DL Albumin 4.3 GM/DL Calcium Level 8.8 MG/DL Alkaline Phosphatase 145 U/L Aspartate Amino Transf (AST/SGOT) 36 U/L Alanine Aminotransferase (ALT/SGPT) 56 U/L Total Bilirubin 1.1 MG/DL Sodium Level 150 MEQ/L Potassium Level 5.1 MEQ/L Chloride Level 112 MEQ/L Carbon Dioxide Level 28.7 MEQ/L Anion Gap 9 MEQ/L Estimat Glomerular Filtration Rate 40 ML/MIN White Blood Count 10.0 TH/MM3 Red Blood Count 3.24 MIL/MM3 Hemoglobin 9.3 GM/DL Hematocrit 28.1 % Mean Corpuscular Volume 86.5 FL Mean Corpuscular Hemoglobin 28.7 PG Mean Corpuscular Hemoglobin Concent 33.2 % Red Cell Distribution Width 16.6 % Platelet Count 55 TH/MM3 Mean Platelet Volume 9.7 FL Administered Medications Medications (Trade) Dose Ordered Sig/Padmini Route PRN Reason Start Time Stop Time Status Last Admin Dose Admin Metoprolol Tartrate (Lopressor Inj) 1.25 mg Q6H PRN IV PUSH SBP > 170 + HR > 100 06/04/17 19:15 06/30/17 07:30 Docusate Sodium (Colace Liq) 100 mg Q12HR PO 06/05/17 14:00 07/03/17 08:29 Potassium Bicarb/ Potassium Chloride (K-Lyte Cl Eff) 25 meq Q12HR PO 06/05/17 14:00 07/03/17 08:30 Digoxin (Lanoxin) 0.125 mg DAILY PO 06/06/17 09:00 Future Hold 06/28/17 10:09 Losartan Potassium (Cozaar) 50 mg DAILY PO 06/07/17 09:00 Future hold 07/03/17 08:29 Levothyroxine Sodium (Synthroid) 50 mcg DAILY@0600 PO 06/07/17 08:00 07/03/17 06:00 Insulin Aspart (NovoLOG SUPPLEMENTAL SCALE) 1 BID@0800,2000 SQ 06/08/17 20:00 07/03/17 08:00 Nystatin (Mycostatin Liq) 5 ml QID SWISH-SWAL 06/12/17 13:00 07/03/17 12:21 Budesonide (Pulmicort Respule Neb) 0.5 mg Q12HR NEB NEB 06/16/17 11:15 07/03/17 08:00 Acetaminophen (Tylenol 650 Mg/ 20 ml Liq) 650 mg Q6H PRN PO PAIN 1-10/ FEVER > 101.5 06/18/17 06:30 07/03/17 10:39 Ondansetron HCl (Zofran Inj) 4 mg Q6H PRN IV PUSH NAUSEA OR VOMITING 06/22/17 19:30 06/23/17 08:40 Guaifenesin (Mucinex Er) 600 mg BID PO 06/23/17 10:15 07/03/17 08:30 Metoclopramide HCl (Reglan Inj) 5 mg Q8HR IV PUSH 06/23/17 17:45 07/03/17 06:00 Polyethylene Glycol (Miralax) 17 gm DAILY PO 06/25/17 09:45 07/03/17 08:30 Albumin Human 100 ml @ 60 mls/hr Q12H IV 06/26/17 18:00 07/03/17 06:00 Chlorhexidine Gluconate (Peridex 0.12% Liq) 15 ml BID@08,20 MT 06/27/17 20:00 07/03/17 08:00 Potassium Chloride 100 ml @ 50 mls/hr Q2H PRN IV For Potassium 2.8 - 3.2 mEq/L 06/28/17 11:00 06/28/17 12:32 Potassium Chloride 100 ml @ 25 mls/hr UNSCH PRN IV For Potassium 3.3 - 3.5 mEq/L 06/28/17 11:00 06/30/17 06:06 Potassium Chloride 100 ml @ 50 mls/hr Q2H PRN IV For Potassium 3.3 - 3.5 mEq/L 06/28/17 11:00 07/01/17 06:50 Pantoprazole Sodium (Protonix Inj) 40 mg Q12H IV PUSH 06/28/17 21:00 07/03/17 08:29 Hydralazine HCl (Apresoline Inj) 20 mg Q4H PRN IV PUSH SBP >170 06/28/17 18:00 07/03/17 10:29 Cefepime HCl 1000 mg/Sodium Chloride 100 ml @ 200 mls/hr Q12HR IV 06/29/17 09:00 07/03/17 08:29 Ipratropium [place] (Atrovent Neb) 0.5 mg Q6HR NEB NEB 06/29/17 16:00 07/03/17 10:00 Eltrombopag (Promacta) 50 mg DAILY@1000 PO 06/30/17 10:00 07/03/17 10:00 Dexmedetomidine HCl 200 mcg/ Sodium Chloride 50 ml @ 2.85 mls/hr TITRATE PRN IV Desired RASS 06/29/17 19:00 06/30/17 13:28 Hydralazine HCl (Apresoline) 50 mg Q8HR PO 06/30/17 06:45 07/03/17 06:00 Clonidine (Catapres) 0.2 mg Q6H PRN PO SYS BP GREATER THAN 160 MMHG 06/30/17 08:00 07/03/17 02:00 Metoprolol Tartrate (Lopressor) 100 mg BID PO 06/30/17 21:00 07/03/17 08:30 Methylprednisolone Sodium Succinate (SoluMEDROL INJ) 40 mg Q12HR IV PUSH 06/30/17 21:00 07/03/17 08:29 Diltiazem HCl (Cardizem) 30 mg Q6H PO 07/01/17 13:00 07/03/17 12:21 Objective Remarks GENERAL:intubated SKIN: Warm and dry NECK: Supple, trachea midline. No JVD or lymphadenopathy. LYMPHATIC: No adenopathy. CARDIOVASCULAR: Regular rate and rhythm without murmurs. RESPIRATORY: coarse sounds b/l lungs. GASTROINTESTINAL: Abdomen soft, non-tender, nondistended. EXTREMITIES: No cyanosis, or edema. Assessment/Plan Problem List: (1) Chronic ITP (idiopathic thrombocytopenia) ICD Codes: D69.3 - Immune thrombocytopenic purpura Plan: --acute drop in platelet count likely from acute illness, DIC, and consumption. --on Promacta 50 mg daily. --recommend transfusing for platelets less than 20k. --If the family does opt for valvuloplasty would recommend giving 2 units platelets prior and also to hang one during the procedure. --Thrombocytopenia due to sepsis/acute illness--also with hx of ITP --will avoid IVIG due to recent hx of DVT (2) CAD (coronary artery disease) ICD Codes: I25.10 - Atherosclerotic heart disease of [place] coronary artery without angina pectoris Plan: -- Undergone left and right heart catheterization for her TAVR evaluation. -- After right heart cath, she developed acute massive hemoptysis with shock secondary to acute rupture of pulmonary artery. -- She underwent cardiac cath which identified bleeding from a small branch of the left pulmonary artery. Six coils were placed in the left lower artery. The patient was subsequently extubated. However, her respiratory status declined yesterday. She was on BiPap. She was again intubated due to worsening hypoxemic respiratory failure. -- There are plans for valvuloplasty on Friday; however the patient's son and spouse are contemplating comfort care only. (3) DVT (deep venous thrombosis) ICD Codes: I82.409 - Acute embolism and thrombosis of unspecified deep veins of unspecified lower extremity Plan: --no anticoagulation for now due to thrombocytopenia until sustained platelet count of = >35,000 is achieved Assessment 89-year-old female with history of severe aortic stenosis underwent left and right heart catheterization for her TAVR evaluation. After right heart cath, she developed acute massive hemoptysis with shock secondary to acute rupture of pulmonary artery. She was intubated. She became hypotensive and started on dopamine and Shantanu-Synephrine. Levophed was also added. She was a given blood product support with three units of packed red blood cells, two units of FFP, and one unit of platelets. She also developed a V-tach and V-fib and received brief CPR. She was DC cardioverted x1 and returned to spontaneous circulation and sinus rhythm. A PARVIN was performed which showed vigorous LV contraction but the cavity was empty. She received continuous massive fluid resuscitation with multiple crystalloid boluses bicarbonate and calcium. She underwent cardiac cath which identified bleeding from a small branch of the left pulmonary artery. Six coils were placed in the left lower artery. The patient was subsequently extubated. However, her respiratory status declined and she was reintubated. Plan 1. Acute thrombocytopenia due to sepsis/dic - no bleeding - PLts up to 55 - continue Promacta 2. DIC/coagulopathy - daily fibrinogen - no cryoprecipitate today 3. Anemia worsening - check iron studies, b12, folate - LDH/haptoglobon - Heme-occult 4. Respiratory failure 5. DVT - no anticoagulation for now d/w rn o/n events reviewed Discussed with RN Problem Qualifiers (1) DVT (deep venous thrombosis): Lucius Ortega MD Jul 03, 2017 12:44
[2017-07-03 14:48] LABS: INTERNATIONAL NORMALIZED RATIO 1.3 RATIO
[2017-07-03 14:53] LABS: PROTHROMBIN TIME - PATIENT 14.9 SEC (9.8-11.6)
[2017-07-03] MEDS: FUROSEMIDE 40 MG/4 ML VIAL IV PUSH SCH ×2 (18:00→23:41)
[2017-07-03 23:58] LABS: LDH SERUM 309 U/L (84-246); TRANSFERRIN IRON PROFILE 117 MG/DL (200-360)
[2017-07-04] VITALS (9 sets, daily range): BP systolic 131–170; BP diastolic 60–84; PULSE 82–111; RESP 14–18; TEMP 98–100.8; O2SAT 95–97
[2017-07-04 00:23] LABS: FERRITIN 745 NG/ML (8-252)
[2017-07-04] MEDS: DILTIAZEM HCL 30 MG TAB PO SCH ×2 (01:00→06:19)
[2017-07-04] MEDS: hydrALAZINE HCL 20 MG/ML VIAL IV PUSH PRN (01:15)
[2017-07-04] MEDS: RESP: IPRATROPIUM 0.5 MG/2.5 ML NEB NEB SCH ×2 (04:08→09:34)
[2017-07-04 05:12] LABS: AUTOMATED NEUTROPHIL # 11.4 TH/MM3 (1.8-7.7); BASOPHIL % 0.1 % (0.0-2.0); HEMATOCRIT 32.5 % (35.0-46.0); HEMO FLAGS DIFF FINAL; LYMPH % 2.6 % (9.0-44.0); LYMPHOCYTE # 0.3 TH/MM3 (1.0-4.8); MEAN CELL VOLUME 86.7 FL (80.0-100.0); MEAN CORPUSCULAR HEMOGLOBIN 28.7 PG (27.0-34.0); MEAN CORPUSCULAR HGB CONC 33.1 % (32.0-36.0); NEUT % 90.3 % (16.0-70.0); PLATELET COUNT 105 TH/MM3 (150-450); RED BLOOD COUNT 3.74 MIL/MM3 (4.00-5.30); RED CELL DISTRIBUTION WIDTH 17.5 % (11.6-17.2); WHITE BLOOD COUNT 12.7 TH/MM3 (4.0-11.0)
[2017-07-04 05:24] LABS: ALKALINE PHOSPHATASE 135 U/L (45-117); ALT (GPT) 50 U/L (10-53); ANION GAP 9 MEQ/L (5-15); AST (GOT) 23 U/L (15-37); BLOOD UREA NITROGEN 120 MG/DL (7-18); CHLORIDE 108 MEQ/L (98-107); GLOMERULAR FILTRATION RATE 35 ML/MIN (>89); SODIUM (NA) 149 MEQ/L (136-145)
[2017-07-04] MEDS: hydrALAZINE HCL 50 MG TAB PO SCH (06:00)
[2017-07-04] MEDS: ALBUMIN 25% INJ 100 ML IV SCH (06:00)
[2017-07-04] MEDS: FUROSEMIDE 40 MG/4 ML VIAL IV PUSH SCH (06:00)
[2017-07-04] MEDS: METOCLOPRAMIDE HCL 10 MG/2 ML VIAL IV PUSH SCH (06:00)
[2017-07-04] MEDS: LEVOTHYROXINE SODIUM 50 MCG TAB PO SCH (06:00)
[2017-07-04] MEDS: INSULIN ASPART SUPPLEMENTAL SCALE SQ SCH (08:00)
[2017-07-04] MEDS: CHLORHEXIDINE 0.12% (ORAL KIT) 15 ML CUP MT SCH (08:00)
[2017-07-04] MEDS: NYSTATIN SUSP 500,000 U/5 ML CUP SWISH-SWAL SCH (08:59)
[2017-07-04] MEDS: guaiFENesin E.R. 600 MG TAB PO SCH (08:59)
[2017-07-04] MEDS: DOCUSATE SODIUM 100 MG/10 ML UDC PO SCH (08:59)
[2017-07-04] MEDS: CEFEPIME 1000 MG/NS 100 ML IV SCH ×2 (09:00)
[2017-07-04] MEDS: LOSARTAN 50 MG TAB PO SCH (09:00)
[2017-07-04] MEDS: ELTROMBOPAG 50 MG TAB PO SCH (09:00)
[2017-07-04] MEDS: METOPROLOL TARTRATE 100 MG TAB PO SCH (09:00)
[2017-07-04] MEDS: methylPREDNISolone SOD SUCC 40 MG/1 ML VIAL IV PUSH SCH (09:00)
[2017-07-04] MEDS: POLYETHYLENE GLYCOL 17 GM PKG PO SCH (09:01)
[2017-07-04] MEDS: PANTOPRAZOLE SODIUM 40 MG VIAL IV PUSH SCH (09:01)
[2017-07-04] MEDS: RESP: BUDESONIDE 0.5 MG/2 ML NEB NEB SCH (09:34)
--- NOTE | 2017-07-04 10:23 | PD.CONS ---
Consult Service Palliative Care . Consult Requested By Dr. Alexander Segura . Primary Care Physician Unknown . Reason for Consultation a. To assist with evaluation and management of symptoms including: b. To assist medical decision maker(s) with: better understanding of current medical conditions; weighing benefits/burdens of medical treatment options; making medical treatment decisions. . HPI History of Present Illness Ms. Mahoney is an 89-year-old female with a history of hypertension, severe aortic stenosis, coronary artery disease, paroxysmal atrial fibrillation, ITP, anemia, hypercholesterolemia, hypothyroidism, malignant colonic neoplasm and right hearing loss. Patient was admitted to [facility] on 06/03/17 with severe aortic stenosis. She underwent left and right heart catheterization for TAVR evaluation. With right heart catheterization patient developed acute massive hemoptysis with shock secondary to acute rupture of pulmonary artery. Patient was intubated by Dr. Potter and ETT was advance to right lung for selective right lung ventilation due to massive hemorrhage from Left lung. While on Levophed Shantanu- Synephrine and dopamine, patient developed V. fib/V. tach, received brief CPR, and was DC cardioverted 1 with return of spontaneous circulation and sinus rhythm. A PARVIN was performed which showed vigorous LV contraction but cavity was empty. Patient received continuous massive fluid resuscitation with multiple crystalloid boluses, bicarbonate and calcium. Patient needed resuscitation and blood products were instilled. Dr. Jennings performed right heart cath, identified bleeding of a small branch in the left pulmonary artery. They put put in 6 coils in the lower left lower pulmonary artery followed with Gelfoam closing the perforation. 06/04/17: Patient required emergent chest tube 2 for right pneumothorax with hypotension and hypoxia. She remains intubated, requiring pressor support. Patient in atrial fibrillation on Cardene drip for blood pressure control. A chest x-ray shows percutaneous emphysema and small apical pneumothorax requiring upgrade to a larger chest tube. Patient failed extubation on 06/11/2016 and required re-into patient for hypoxemic respiratory failure. Patient having intermittent fevers, on IV antibiotics. WBC 22.0 Sputum culture positive for MRSA; MRSA pneumonia. Infectious disease following. 06/17/2017 follow-up chest x-ray showing interval improvement with decreased secretions patient successfully extubated. Critical care was reconsulted on 06/26/2017 for acute desaturations into the 70s. Patient was in moderate distress with diffuse crackles; she was placed on a nonrebreather. A stat chest x-ray was unchanged from 2 days prior showing bilateral diffuse interstitial and alveolar infiltrates with bilateral pleural effusions consistent with CHF. Patient received 20 mg of Furosemide IV stat. She was started on a Bumex drip, transferred to the ICU and placed on BiPAP. Patient remained on BiPAP overnight. Chest x-ray this morning showed improved bilateral infiltrates. Afebrile. UA showing evidence of UTI; culture pending. Patient currently on vancomycin and cefepime. Follow-up cultures pending. Infectious disease was reconsulted. Patient was reintubated on 06/27/17 for acute hypoxemic respiratory failure. Hematology was consulted for worsening thrombocytopenia. 2 D Echo yesterday showed increased mean gradient. May need BAV as bridge to TAVR (secondary to flash pulmonary edema and heart failure). Per clinical trial leader notes recent events: * "06/29: Patient remains intubated sedated. Remains critically ill. Chest x- ray remained stable to slightly increased pulmonary vascular congestion. Platelet count has further dropped 34, Hb stable at 10.5. Hematology is following on IV steroids and Promacta. Dr. Ortega considering IVIG. With low platelet, Coumadin is on hold. Will start IV Heparin for LE DVT (US 06/07/17) when cleared by Hematology INR is 1.[address] Corrales to decide on BAV. UO 2.6L in 24 hours * 06/30: Patient is off sedation more awake follows commands intermittently. On attempted CPAP with pressure support 15 becomes slightly tachypneic. Urine output 2.5 L in 24 hours BUN elevated to 78 creatinine 1.5. CBC downtrending hemoglobin remained stable. Platelet count dropped to 30 without evidence of bleeding. Anticoagulation on hold due to severe thrombocytopenia. Family declines further invasive treatment * 07/01: Remains orally intubated on mechanical ventilation. Worsening thrombocytopenia. No active bleeding currently. Family does not want further invasive measures and patient is alternate code currently. They have declined PEG tube placement. * 07/02: Remains orally intubated on mechanical ventilation. Failed C Pap trial after 1.5 hours yesterday. Family wants palliative care per discussion with nursing yesterday - defer to Dr. Corrales. * 07/03: Awake, orally intubated on mechanical ventilation. Awaiting C Pap trial this morning at the time of my evaluation." In review of notes, hematology supports decision for palliative measures. Discussed with Dr. Segura. Will discuss with Dr. Corrales and Dr. Teran. Call from nurse to report family at bedside. Palliative Care was consulted to assist with de-escalation of therapy as family wishes to transition to comfort measures. . Function/Cognitive Trajectory Patient has had decline prior to admission. . Review of Systems ROS Limitations: Intubated Constitutional: COMPLAINS OF: Fatigue, Change in appetite (decreased), Generalized weakness Respiratory: COMPLAINS OF: Shortness of breath Cardiovascular: COMPLAINS OF: Dyspnea on Exertion Gastrointestinal: COMPLAINS OF: Anorexia Hematologic/Lymphatics: COMPLAINS OF: Bruising Psychiatric: COMPLAINS OF: Anxiety, Depression Past Family Social History Coded Allergies: Sulfa (Sulfonamide Antibiotics) (Unverified Allergy, Severe, 06/03/17) promethazine (Unverified Allergy, Severe, 06/03/17) adhesive (Unverified Allergy, Unknown, 06/03/17) Past Medical History Hypertension Coronary artery disease Paroxysmal atrial fibrillation ITP Anemia Severe aortic stenosis Hypercholesterolemia Hypothyroidism Malignant colonic neoplasm Right hearing loss . Past Surgical History Pacemaker insertion January 29, 2013 Tonsillectomy Umbilical hernia repair Cataract PTCA Partial colectomy in 1999 . Reported Medications Reported Meds & Active Scripts Active Reported Centrum (Multiple Vitamins W/ Minerals) 1 Chew 1 Tab CHEW DAILY Pantoprazole (Pantoprazole Sodium) 40 Mg Tab 40 Mg PO DAILY Eq Mucus ER (Guaifenesin) 600 Mg Tab 600 Mg PO DAILY Warfarin 4 Mg Tab 4 Mg PO DAILY Sertraline (Sertraline HCl) 25 Mg Tab 25 Mg PO DAILY Promacta (Eltrombopag) 75 Mg Tab 50 Mg PO DAILY Potassium Chloride ER (Potassium Chloride) 10 Meq Cap 10 Meq PO DAILY MDD 20 Take 2 capsules Multaq (Dronedarone) 400 Mg Tab 400 Mg PO BID Metoprolol Tartrate 50 Mg Tab 50 Mg PO DAILY Losartan (Losartan Potassium) 50 Mg Tab 50 Mg PO DAILY Lipitor (Atorvastatin Calcium) 10 Mg Tab 10 Mg PO HS Levothyroxine (Levothyroxine Sodium) 50 Mcg Tab 50 Mcg PO DAILY Furosemide 20 Mg Tab 20 Mg PO DAILY Digox (Digoxin) 0.125 Mg Tab 0.125 Mg PO DAILY Folic Acid 0.4 Mg Tab 1 Mg PO DAILY Cardizem CD 24 HR (Diltiazem CD 24 HR) 120 Mg Caper 120 Mg PO DAILY . Current Medications Medications (Trade) Dose Ordered Sig/Padmini Route Start Time Stop Time Status Last Admin (K-Lyte Cl Eff) 50 meq UNSCH PRN PO 06/03/17 19:15 (Mag-Ox) 800 mg UNSCH PRN PO 06/03/17 19:15 (K-Phos) 2,000 mg Q4H PRN PO 06/03/17 19:15 (K-Phos) 2,000 mg UNSCH PRN PO/TUBE 06/03/17 19:15 (D50w (Vial) Inj) 50 ml UNSCH PRN IV PUSH 06/04/17 12:15 (Glucagon Inj) 1 mg UNSCH PRN OTHER 06/04/17 12:15 (Lopressor Inj) 1.25 mg Q6H PRN IV PUSH 06/04/17 19:15 06/30/17 07:30 (Colace Liq) 100 mg Q12HR PO 06/05/17 14:00 07/04/17 08:59 (K-Lyte Cl Eff) 25 meq Q12HR PO 06/05/17 14:00 07/03/17 21:00 (Lanoxin) 0.125 mg DAILY PO 06/06/17 09:00 Future Hold 06/28/17 10:09 (Cozaar) 50 mg DAILY PO 06/07/17 09:00 Future hold 07/04/17 09:00 (Synthroid) 50 mcg DAILY@0600 PO 06/07/17 08:00 07/04/17 06:00 (Pill Splitter) 1 ea UNSCH PRN OTHER 06/07/17 22:15 (NovoLOG SUPPLEMENTAL SCALE) 1 BID@0800,2000 SQ 06/08/17 20:00 07/04/17 08:00 (Mycostatin Liq) 5 ml QID SWISH-SWAL 06/12/17 13:00 07/04/17 08:59 (Pulmicort Respule Neb) 0.5 mg Q12HR NEB NEB 06/16/17 11:15 07/03/17 21:38 (Tylenol 650 Mg/ 20 ml Liq) 650 mg Q6H PRN PO 06/18/17 06:30 07/03/17 10:39 (Zofran Inj) 4 mg Q6H PRN IV PUSH 06/22/17 19:30 06/23/17 08:40 (Mucinex Er) 600 mg BID PO 06/23/17 10:15 07/04/17 08:59 (Reglan Inj) 5 mg Q8HR IV PUSH 06/23/17 17:45 07/04/17 06:00 (Miralax) 17 gm DAILY PO 06/25/17 09:45 07/04/17 09:01 (Melatonin) 5 mg HS PRN PO 06/25/17 16:15 Albumin Human 100 ml @ 60 mls/hr Q12H IV 06/26/17 18:00 07/04/17 06:00 (Peridex 0.12% Liq) 15 ml BID@08,20 MT 06/27/17 20:00 07/04/17 08:00 Potassium Chloride 100 ml @ 50 mls/hr Q2H PRN IV 06/28/17 11:00 Potassium Chloride 100 ml @ 50 mls/hr Q2H PRN IV 06/28/17 11:00 06/28/17 12:32 (K-Lyte Cl Eff) 50 meq UNSCH PRN PO 06/28/17 11:00 Potassium Chloride 100 ml @ 25 mls/hr UNSCH PRN IV 06/28/17 11:00 06/30/17 06:06 Potassium Chloride 100 ml @ 50 mls/hr Q2H PRN IV 06/28/17 11:00 07/01/17 06:50 Magnesium Sulfate 4 gm/Sodium Chloride 100 ml @ 50 mls/hr UNSCH PRN IV 06/28/17 11:00 (Mag-Ox) 800 mg UNSCH PRN PO 06/28/17 11:00 Magnesium Sulfate 2 gm/Sodium Chloride 100 ml @ 50 mls/hr UNSCH PRN IV 06/28/17 11:00 (K-Phos) 2,000 mg Q4H PRN PO 06/28/17 11:00 Sodium Phosphate 30 mmol/Sodium Chloride 250 ml @ 42 mls/hr UNSCH PRN IV 06/28/17 11:00 (K-Phos) 2,000 mg UNSCH PRN PO/TUBE 06/28/17 11:00 Potassium Phosphate 30 mmol/ Sodium Chloride 260 ml @ 42 mls/hr UNSCH PRN IV 06/28/17 11:00 (Protonix Inj) 40 mg Q12H IV PUSH 06/28/17 21:00 07/04/17 09:01 (Apresoline Inj) 20 mg Q4H PRN IV PUSH 06/28/17 18:00 07/04/17 01:15 Cefepime HCl 1000 mg/Sodium Chloride 100 ml @ 200 mls/hr Q12HR IV 06/29/17 09:00 07/04/17 09:00 (Atrovent Neb) 0.5 mg Q6HR NEB NEB 06/29/17 16:00 07/04/17 04:08 (Promacta) 50 mg DAILY@1000 PO 06/30/17 10:00 07/04/17 09:00 Dexmedetomidine HCl 200 mcg/ Sodium Chloride 50 ml @ 2.85 mls/hr TITRATE PRN IV 06/29/17 19:00 06/30/17 13:28 (Apresoline) 50 mg Q8HR PO 06/30/17 06:45 07/04/17 06:00 (Catapres) 0.2 mg Q6H PRN PO 06/30/17 08:00 07/03/17 02:00 (Lopressor) 100 mg BID PO 06/30/17 21:00 07/04/17 09:00 (SoluMEDROL INJ) 40 mg Q12HR IV PUSH 06/30/17 21:00 07/04/17 09:00 (Cardizem) 30 mg Q6H PO 07/01/17 13:00 07/04/17 06:19 (Lasix Inj) 40 mg Q6HR IV PUSH 07/03/17 18:00 07/04/17 14:00 07/04/17 06:00 Family History Mother had coronary artery disease. Father leukemia. . Substance Use Tobacco: prior tobacco use. Alcohol: None. Prescription med abuse: none. Illicits: No illicit drug abuse. . Psychosocial History Lives with her . Has 3 adult sons, 2 of which are twins. . Spiritual/Cultural Factors Scientologist dmitriy. . Living Will: Never completed Health Care Surrogate: Never completed Durable Power of Senior Accounting Specialist: Never completed Health Care Surrogate(s): Patient is capacitated to make her own decisions. Per [place] statutes, in the absence of written advanced directives or if incapacitated healthcare proxy decision-making falls to this patient's spouse (Salvador Mahoney). . Today's verbally stated goals: Patient desires comfort measures with withdrawal of life support with hospice support. Family/friends goals: Family supports patient desire for comfort measures. Ethical and Legal Issues Patient is capacitated to make her own decisions. Per [place] statutes, in the absence of written advanced directives or if incapacitated healthcare proxy decision-making falls to this patient's spouse (Salvador Mahoney). . Physical Exam Vital Signs Date Time Temp Pulse Resp B/P (MAP) Pulse Ox O2 Delivery O2 Flow Rate FiO2 07/04/17 04:09 95 40 07/04/17 04:00 99 Mechanical Ventilator 40 07/04/17 04:00 102 07/04/17 04:00 98.2 102 14 170/75 (106) 97 07/04/17 04:00 40 07/04/17 00:30 97 40 07/04/17 00:00 96 Mechanical Ventilator 40 07/04/17 00:00 98.0 92 14 167/84 (111) 96 07/04/17 00:00 92 07/04/17 00:00 40 07/03/17 21:38 96 40 07/03/17 20:00 40 07/03/17 20:00 86 07/03/17 20:00 97 Mechanical Ventilator 40 07/03/17 20:00 97.9 87 14 168/80 (109) 97 07/03/17 16:27 97 40 07/03/17 15:00 82 07/03/17 15:00 40 07/03/17 15:00 97 Mechanical Ventilator 40 07/03/17 15:00 97.9 82 15 152/68 (96) 97 07/03/17 12:45 97 Mechanical Ventilator 40 07/03/17 12:11 22 07/03/17 11:50 40 07/03/17 11:50 Mechanical Ventilator 07/03/17 11:00 76 07/03/17 11:00 97.8 76 15 152/65 (94) 97 07/03/17 11:00 97 Mechanical Ventilator 40 07/03/17 11:00 40 Exam CONSTITUTIONAL/GENERAL: This is an elderly, critically ill patient, in no apparent distress. TUBES/LINES/DRAINS: ETT, OG, central line, Payne, podus boots. SKIN: No jaundice, rashes, or lesions. Ecchymoses on upper extremities. No wounds seen anteriorly. Skin temperature appropriate. Not diaphoretic. HEAD: Atraumatic. Normocephalic. EYES: Pupils equal and round and reactive. ENT: Hearing grossly normal. Nose without bleeding or purulent drainage. Oral mucosa dry. NECK: Trachea midline. CARDIOVASCULAR: irregular, systolic murmur. RESPIRATORY/CHEST: Symmetric, unlabored respirations. Clear to auscultation. GASTROINTESTINAL: Abdomen soft, non-tender, nondistended. No guarding. Bowel sounds present. GENITOURINARY: Without palpable bladder distension. Payne catheter in place. MUSCULOSKELETAL: Extremities with trace edema. No mottling or clubbing. LYMPHATICS: No palpable cervical or supraclavicular adenopathy. NEUROLOGICAL: Awake and alert. Weakness noted. Follows commands. Cognitively sharp. Moves all extremities. PSYCHIATRIC: No obvious anxiety/depression. no apparent hallucinations or other psychotic thought process. . Diagnostic Tests Laboratory Laboratory Tests Test 07/02/17 04:55 07/03/17 09:52 07/03/17 11:51 07/03/17 13:55 White Blood Count 9.6 TH/MM3 (4.0-11.0) 10.0 TH/MM3 (4.0-11.0) Red Blood Count 3.37 MIL/MM3 (4.00-5.30) 3.24 MIL/MM3 (4.00-5.30) Hemoglobin 9.9 GM/DL (11.6-15.3) 9.3 GM/DL (11.6-15.3) Hematocrit 29.3 % (35.0-46.0) 28.1 % (35.0-46.0) Mean Corpuscular Volume 87.1 FL (80.0-100.0) 86.5 FL (80.0-100.0) Mean Corpuscular Hemoglobin 29.5 PG (27.0-34.0) 28.7 PG (27.0-34.0) Mean Corpuscular Hemoglobin Concent 33.8 % (32.0-36.0) 33.2 % (32.0-36.0) Red Cell Distribution Width 17.3 % (11.6-17.2) 16.6 % (11.6-17.2) Platelet Count 32 TH/MM3 (150-450) 55 TH/MM3 (150-450) Mean Platelet Volume 9.9 FL (7.0-11.0) 9.7 FL (7.0-11.0) Neutrophils (%) (Auto) 85.7 % (16.0-70.0) Lymphocytes (%) (Auto) 4.6 % (9.0-44.0) Monocytes (%) (Auto) 9.7 % (0.0-8.0) Eosinophils (%) (Auto) 0.0 % (0.0-4.0) Basophils (%) (Auto) 0.0 % (0.0-2.0) Neutrophils # (Auto) 8.2 TH/MM3 (1.8-7.7) Lymphocytes # (Auto) 0.4 TH/MM3 (1.0-4.8) Monocytes # (Auto) 0.9 TH/MM3 (0-0.9) Eosinophils # (Auto) 0.0 TH/MM3 (0-0.4) Basophils # (Auto) 0.0 TH/MM3 (0-0.2) CBC Comment AUTO DIFF Differential Comment AUTO DIFF CONFIRMED Platelet Estimate LOW (NORMAL) Platelet Morphology Comment NORMAL (NORMAL) Ovalocytes 1+ (NORMAL) Fibrinogen 144 mg/dL (227-377) 183 mg/dL (227-377) Blood Urea Nitrogen 100 MG/DL (7-18) 102 MG/DL (7-18) Creatinine 1.27 MG/DL (0.50-1.00) 1.25 MG/DL (0.50-1.00) Random Glucose 168 MG/DL (74-106) 144 MG/DL (74-106) Total Protein 6.3 GM/DL (6.4-8.2) 6.6 GM/DL (6.4-8.2) Albumin 3.9 GM/DL (3.4-5.0) 4.3 GM/DL (3.4-5.0) Calcium Level 8.9 MG/DL (8.5-10.1) 8.8 MG/DL (8.5-10.1) Alkaline Phosphatase 110 U/L (45-117) 145 U/L (45-117) Aspartate Amino Transf (AST/SGOT) 14 U/L (15-37) 36 U/L (15-37) Alanine Aminotransferase (ALT/SGPT) 28 U/L (10-53) 56 U/L (10-53) Total Bilirubin 0.8 MG/DL (0.2-1.0) 1.1 MG/DL (0.2-1.0) Sodium Level 151 MEQ/L (136-145) 150 MEQ/L (136-145) Potassium Level 3.7 MEQ/L (3.5-5.1) 5.1 MEQ/L (3.5-5.1) Chloride Level 112 MEQ/L (98-107) 112 MEQ/L (98-107) Carbon Dioxide Level 30.5 MEQ/L (21.0-32.0) 28.7 MEQ/L (21.0-32.0) Anion Gap 9 MEQ/L (5-15) 9 MEQ/L (5-15) Estimat Glomerular Filtration Rate 40 ML/MIN (>89) 40 ML/MIN (>89) Iron Level 41 MCG/DL (50-170) Total Iron Binding Capacity 164 MCG/DL (250-450) Percent Iron Saturation 25.0 % (20-50) Ferritin 745 NG/ML (8-252) Lactate Dehydrogenase 309 U/L (84-246) Vitamin B12 Level 1080 PG/ML (193-986) Prothrombin Time 14.9 SEC (9.8-11.6) Prothromb Time International Ratio 1.3 RATIO Test 07/04/17 04:38 White Blood Count 12.7 TH/MM3 (4.0-11.0) Red Blood Count 3.74 MIL/MM3 (4.00-5.30) Hemoglobin 10.8 GM/DL (11.6-15.3) Hematocrit 32.5 % (35.0-46.0) Mean Corpuscular Volume 86.7 FL (80.0-100.0) Mean Corpuscular Hemoglobin 28.7 PG (27.0-34.0) Mean Corpuscular Hemoglobin Concent 33.1 % (32.0-36.0) Red Cell Distribution Width 17.5 % (11.6-17.2) Platelet Count 105 TH/MM3 (150-450) Mean Platelet Volume 10.1 FL (7.0-11.0) Neutrophils (%) (Auto) 90.3 % (16.0-70.0) Lymphocytes (%) (Auto) 2.6 % (9.0-44.0) Monocytes (%) (Auto) 7.0 % (0.0-8.0) Eosinophils (%) (Auto) 0.0 % (0.0-4.0) Basophils (%) (Auto) 0.1 % (0.0-2.0) Neutrophils # (Auto) 11.4 TH/MM3 (1.8-7.7) Lymphocytes # (Auto) 0.3 TH/MM3 (1.0-4.8) Monocytes # (Auto) 0.9 TH/MM3 (0-0.9) Eosinophils # (Auto) 0.0 TH/MM3 (0-0.4) Basophils # (Auto) 0.0 TH/MM3 (0-0.2) CBC Comment DIFF FINAL Differential Comment Haptoglobin 43 MG/DL (30-200) Blood Urea Nitrogen 120 MG/DL (7-18) Creatinine 1.40 MG/DL (0.50-1.00) Random Glucose 192 MG/DL (74-106) Total Protein 7.0 GM/DL (6.4-8.2) Albumin 4.5 GM/DL (3.4-5.0) Calcium Level 9.3 MG/DL (8.5-10.1) Alkaline Phosphatase 135 U/L (45-117) Aspartate Amino Transf (AST/SGOT) 23 U/L (15-37) Alanine Aminotransferase (ALT/SGPT) 50 U/L (10-53) Total Bilirubin 1.0 MG/DL (0.2-1.0) Sodium Level 149 MEQ/L (136-145) Potassium Level 4.0 MEQ/L (3.5-5.1) Chloride Level 108 MEQ/L (98-107) Carbon Dioxide Level 32.0 MEQ/L (21.0-32.0) Anion Gap 9 MEQ/L (5-15) Estimat Glomerular Filtration Rate 35 ML/MIN (>89) Result Diagram: 07/04/17 0438 07/04/17 0438 Microbiology Microbiology Date/Time Source Procedure Growth Status 06/26/17 21:38 Blood Peripheral Aerobic Blood Culture - Final NO GROWTH IN 5 DAYS Complete 06/26/17 21:38 Blood Peripheral Anaerobic Blood Culture - Final NO GROWTH IN 5 DAYS Complete 06/28/17 09:00 Fluid Pleural Fluid Fungal Smear - Final NO FUNGAL ELEMENTS SEEN. Resulted 06/28/17 09:00 Fluid Pleural Fluid Fungal Culture Pending Resulted 06/09/17 09:45 Stool Stool Stool Occult Blood (KIM) - Final HEMOCCULT POSITIVE Complete 06/27/17 15:03 Sputum Expectorated Sputum Gram Stain - Final Complete 06/27/17 15:03 Sputum Expectorated Sputum Sputum Culture - Final HEAVY GROWTH NORMAL RESPIRATORY TRUDY Complete 06/27/17 01:30 Urine Catheterized Urine Urine Culture - Final NO GROWTH IN 48 HOURS. Complete 06/12/17 13:20 Catheter Tip Central Venous Line Wound Culture - Final NO GROWTH IN 48 HOURS. Complete . Imaging Last Impressions Chest X-Ray 07/03/17 0000 Signed Impressions: Service Date/Time: June 12:03 - CONCLUSION: 1. Mild improved aeration of the right lung compared to the prior exam. 2. There continues to be infiltrates in both lung bases without significant change. Aleksey Au MD Chest CTA 06/27/17 2100 Signed Impressions: Service Date/Time: Wednesday, June 28, 2017 11:33 - CONCLUSION: 1. Limited exam without IV contrast. Aortic root measurements as above. 2. Dense calcification of the mitral valve annulus and the aortic valve. Dense calcification of the coronary arteries. 3. Distal to the embolic coils in the left lower lobe, there is a left basilar consolidation with associated small effusion. 4. On the right, there is patchy airspace disease. Pattern is concerning for possible pneumonic infiltrate. 5. Generalized anasarca may indicate some right heart insufficiency. Joselo Jennings MD Abdomen X-Ray 06/27/17 0000 Signed Impressions: Service Date/Time: Tuesday, June 27, 2017 09:42 - CONCLUSION: Negative for ileus or obstruction. Rajesh Rincon MD FACR Renal Ultrasound 06/26/17 0000 Signed Impressions: Service Date/Time: June 08:51 - CONCLUSION: Normal examination. Alvin Walls MD Tunnelled Chest Tube Removal 06/13/17 0000 Signed Impressions: Service Date/Time: Tuesday, June 13, 2017 00:00 - CONCLUSION: Uncomplicated chest tube removal. Joselo Jennings MD Upper Extremity Ultrasound 06/07/17 0000 Signed Impressions: Service Date/Time: Wednesday, June 07, 2017 18:21 - CONCLUSION: 1. Limited exam but no deep venous thrombosis is identified bilaterally. Jamie Corrales MD Lower Extremity Ultrasound 06/07/17 0000 Signed Impressions: Service Date/Time: Wednesday, June 07, 2017 17:57 - CONCLUSION: 1. Positive bilateral lower extremity deep venous thrombosis, nonocclusive as above. Jamie Corrales MD Head CT 06/07/17 0000 Signed Impressions: Service Date/Time: Wednesday, June 07, 2017 17:01 - CONCLUSION: 1. No acute intracranial abnormality. 2. Extensive subcutaneous air tracking up from the chest. Luc Cain Jr., MD Cervical Spine CT 06/07/17 0000 Signed Impressions: Service Date/Time: Wednesday, June 07, 2017 17:01 - CONCLUSION: 1. Extensive subcutaneous emphysema. 2. Tiny left apical pneumothorax. 3. Diffuse mild degenerative changes without central canal stenosis. Multilevel neural foraminal narrowing. 4. Prevertebral soft tissues obscured by an endotracheal tube and nasogastric tube. Luc Cain Jr., MD Chest Tube Insertion 06/05/17 0000 Signed Impressions: Service Date/Time: May 09:15 - CONCLUSION: Uncomplicated chest tube placement as above. Maxwell Aldana MD Chest CT 06/05/17 0000 Signed Impressions: Service Date/Time: May 08:47 - CONCLUSION: 1. Moderate left-sided hemothorax with associated left lower lobe consolidation which may reflect a combination of compressive atelectasis, aspiration, and potentially lung infarction given recent pulmonary artery embolization. 2. Trace right apical pneumothorax with large bore chest tube in the major fissure and smallbore chest tube in the soft tissues. Significant subcutaneous emphysema extending to the cervicothoracic junction bilaterally. 3. Airspace consolidation in the right lower lobe posteriorly may reflect aspiration. Maxwell Aldana MD Embolization 06/03/17 0000 Signed Impressions: Service Date/Time: Saturday, June 03, 2017 00:00 - CONCLUSION: Left pulmonary artery rupture with successful coil embolization of a lower lobe branch vessel as above. Joselo Jennings MD . Procedures 06/03/17: Intubation 06/03/17: Cardiac catheterization 06/03/17: Right pigtail chest tube placement 06/04/17: Left IJ central line placement 06/05/17: Bronchoscopy 06/06/17 right pigtail chest tube placement 06/11/17: Extubation/Endotracheal reintubation 06/12/17: Right IJ central venous line 06/14/17: Bronchoscopy 06/27/17: Intubation 06/27/17: Right IJ central line placement Patient/Family Conference Present at Family Conference: Patient, spouse and DIL. Family Conference Time (mins): 60 Issues Discussed: * Palliative care role, purpose, approach * Additional medical, psychosocial, and spiritual history * Patient/family understanding of the current medical problems * Patient/family understanding of prognosis * Patients goals of care * Current medical treatment options and benefits/burdens of those options * Likely scenarios comparing ongoing aggressive care with a transition to comfort measures only * Questions answered to the best of my ability * Palliative care contact information provided Palliative care will meet with patient, spouse (Salvador) and daughter in law ( Lora). Conversation witnessed by Nilda Cain LCSW and nurse. Patient is awake and alert, she appears capacitated to make her own decisions. Family supports her decisions. She is clear she wants to be extubated. She desires comfort meds prior to extubation. She wants tube feeding and all life prolonging measures stopped. She understands she will , she is ready to and desires comfort measures only. She does not want continued aggressive care. She wants hospice support. Declined machinist brake support someone from her temple is supposed to visit. She is open to transfer to hospice care center. She wants us to proceed with comfort measures DANYELLE. Assessment and Plan Disease Oriented Problem List: (1) Chronic ITP (idiopathic thrombocytopenia) (2) DVT (deep venous thrombosis) (3) Respiratory failure (4) Shock, postoperative (5) Aortic stenosis Comment: not a surgical candidate. (6) CAD (coronary artery disease) (7) Pulmonary arterial thrombosis Symptom Scale: (1) Dyspnea 0-10 Scale: 0 (2) Pain 0-10 Scale: 0 Pertinent Non-Medical Issues Psychosocial: . Supported by spouse and 3 sons. Spiritual: Scientologist dmitriy. Legal: Per [place] statutes, in the absence of written advanced directives healthcare proxy decision-making falls to this patient's spouse (Salvador Mahoney). Ethical issues impacting care: No known concerns. . Important Contacts * Salvador Mahoney, / HCP: [phone] Prognosis Patient with advanced age, severe aortic stenosis and prolonged hospitalization. Poor prognosis. Hospice appropriate. Code Status: Alternative Code (Intubation only) Plan * Decision Maker: Patient is capacitated to make her own decisions. Per [place] statutes, in the absence of written advanced directives or if incapacitated healthcare proxy decision-making falls to this patient's spouse (Salvador Mahoney). * NO CODE * Palliative care will meet with patient, spouse (Salvador) and daughter in law ( Lora). Conversation witnessed by Nilda Cain LCSW and nurse. Patient is awake and alert, she appears capacitated to make her own decisions. Family supports her decisions. She is clear she wants to be extubated. She desires comfort meds prior to extubation. She wants tube feeding and all life prolonging measures stopped. She understands she will , she is ready to and desires comfort measures only. She does not want continued aggressive care. She wants hospice support. Declined machinist brake support someone from her temple is supposed to visit. She is open to transfer to hospice care center. She wants us to proceed with comfort measures DANYELLE. * Hospice consulted. * Exhibits B & C on chart for signature. * SYMPTOMS: Dyspnea: on mechanical ventilation. She denies SOB during my visit, she requests to be medicated prior to extubation. She desires comfort measures. Pain: denies pain. Orders written for withdrawal of life support. Reviewed plan with patient, family and nursing staff. * Palliative care number provided. * Palliative care will continue to follow to assist with symptom management and further clarification fo treatment goals. Thank you for the opportunity to participate in the care of Ms. Mahoney. Attestation To help prompt me to consider important information that might be impacting today's encounter and assessment, information from prior notes written by myself or my colleagues may have been "brought forward" into today's note. My signature on this note, however, is an attestation that I personally performed the exam, history, and/or decision-making noted today, and, unless otherwise indicated, the interactions with patient, family, and staff as well as the review of records all occurred today. I also attest that the listed assessment and stated plan reflect my best clinical judgment today based on the combination of historical information, prior notes, and today's exam/ interactions. When time spent is documented, it refers only to time spent today by the signer, or if indicated, combined time spent today by collaborating physician/nurse practitioner. Audelia Vega Jul 04, 2017 10:23
--- NOTE | 2017-07-04 10:48 | HHI.CCPN ---
Subjective Remarks/Hospital Course I was emergently called to animal laboratory helper by Dr. Corrales. Ms. Mahoney who is 89 yo female with history of severe aortic stenosis was undergoing left and right heart catheter for TAVR evaluation. With right heart catheterization patient developed acute massive hemoptysis with shock secondary to acute rupture of pulmonary artery. Patient was intubated by Dr. Potter and ETT was advance to Right lung for selective right lung ventilation due to massive hemorrhage from Left lung. On my arrival to animal laboratory helper, patient was rapidly dropping blood pressure. Dopamine was already started. I ordered Shantanu-Synephrine, at 300 mcg/ m in an attempt to increase MAP and also increase the pulmonary vasoconstriction. Levophed was also added to maintain blood pressure and rapidly titrated up. Emergency release blood initially 3 units was ordered stat along with 2 units of FFP, 1 unit of platelet. I also emergently contacted Dr. Vásquez was in the office. (Dr. Bedoya the on-call CT surgeon was operating). While on Levophed Shantanu-Synephrine and dopamine, patient developed coarse V. fib/V. tach, received brief CPR, and was DC cardioverted 1 with return of spontaneous circulation and sinus rhythm. I discussed with Dr. Corrales and anesthesiologist, I also contacted Dr. Josue from invasive radiology.Dr. Josue immediately arrived to the animal laboratory helper. Dr. Abdelrahman francis performed PARVIN which showed vigorous LV contraction but cavity was empty. Received Continuous massive fluid resuscitation with multiple crystalloid boluses, bicarbonate and calcium. Blood arrived and initially 3 units of PRBC, 2 units of 1 unit of platelets was given with calcium total 3 g given after blood transfusion. Because of persistent hypotension, additional 2 units of PRBC was given. While I resuscitated the patient, Dr. Corrales and Dr. Jennings performed right heart cath, identified bleeding of a small branch in the left pulmonary artery. They put put in 6 coils in the lower left lower pulmonary artery followed with Gelfoam closing the perforation. 06/04: Emergency chest 2 yesterday for right pneumothorax with hypotension and hypoxia. Remains intubated sedated and on Levophed. FiO2 remains at 100%, Sat improving to 94-95 %. UO adequate overnight. 2-D echo on my review normal LV and RV function, no PFO on bubble study 06/05: Patient is in atrial fibrillation currently on Cardene infusion for blood pressure control. Chest x-ray shows percutaneous emphysema and small apical pneumothorax. Remains on 80% FiO2. I discussed with interventional radiology. We will attempt CT-guided repositioning of the pigtail catheter and possibly upgrading to a larger tube. Urine output adequate 750 mL in 24 hours 06/06: Currently remains in A. fib with rate controlled, hypertensive on Cardizem drip. Oxygen saturation has improved FiO2 now to 40% with saturation 97%. Urine output excellent with Lasix 4.5 L in 24 hours. Chest x-ray today shows 2.5 cm bilateral apical pneumothorax, also left side has 1.2 cm lateral pneumothorax 06/07: Intubated, on low dose propofol for ventilator synchrony. FiO2 40% oxygen saturation 99%. Chest x-ray and labs pending urine output 2.7 L. 3 chest tubes with no air leak. If neuro exam not improving off sedation will check CT of the head. Currently on propofol will exchange underwriting consultant to Precedex to initiate weaning trials. On weaning doses of inhaled Flolan currently on 30, 000 ng 06/08: Remains intubated, mild sedation with Precedex. Overnight FiO2 increased to 65% for hypoxia. CXR left more than right consolidation of lower lobes. Sputum positive for MRSA on vancomycin. Bilateral lower extremity US studies yesterday showed DVT, initiated on IV heparin. Currently therapeutic on heparin. No evidence of pulmonary hemorrhage. Neuro exam is improving weekly follows commands all 4 extremities 06/09: remains intubated. failed CPAP yesterday. on Cleviprex and precedex. fio2 back to 40%. CXR improved aeration with the exception of known LLL. FC x 4. 06/10: failed SBT again for apnea. but much more awake. denies pain. ROS negative. off cleviprex. new air leak in chest tube. will get chest xray to re- eval. 06/11: Warm, well perfused. Alert, cooperative. Communicates with head nod, hand gestures. Comfortable respiratory pattern and acceptable excursions.Air leaks will seal when off positive pressure ventilation. FiO2 to 0.80 last night briefly; now 0.40. I'll come back later today and see if I can get her extubated. 06/12: Required re-intubation for hypoxemic respiratory failure last evening. She is now warm with well perfused fingers and toes. Low dose levophed not hampering peripheral perfusion. Mild prerenal azotemia. CXR with diffuse infiltrates as before. WBC 32,00, afebrile. Must assume colonized lungs at least. Antibiotic coverage is appropriate. Reculture sputum, urine. Progress to weaning trials daily.Hemodynamics appear excellent, rate a minor problem pretty well controlled. Continue Vanc. Stop pip/roxi, start cefepime. Narrow after cultures. Change CVLs, draw blood cultures. 06/13: Persistent leukocytosis, Tmax 100.2. O2 diffusion acceptable on positive pressure ventilation. Sputum culture pending. Remains warm and well perfused. Continue daily spontaneous breathing trials. 06/14: Bronch and BAL this morning by Dr. Muñoz. Gas exchange remains acceptable. Continue SBTs. 06/15: Looks great on SBTs/CPAP. She would benefit from a temporary tracheostomy. But she will eventually be off and extubated for good. C&S pending from BAL. Continue present abx regimen - discussed with Dr. Segura. 06/16: Awake alert following commands on vent. Currently on Precedex 0.5 g per KG per hour. Still has large amount of ETT secretions, but improving. R pigtail dislodged with turning, no pneumo on repeat CXR 06/17: Awake alert on low dose Precedex. Tolerated CPAP yesterday. Not extubated yesterday due copious bloody secretions. The chest x-ray shows some interval improvement and secretions slightly improved. Will proceed with SBT and possible extubation 06/18: Extubated yesterday tolerating very well. Coughing up sputum, cough seems adequate. Slight increase in WBC to 19.1. Received single dose of Decadron yesterday. Overall doing well communicating, no fever 06/19: WBC count slightly improved 17.9. Otherwise breathing comfortably. Single episode of delirium overnight. Will remove Payne today and also remove right chest tube 06/20: Up in chair, labs pending. CXR showing slight increase in L effusion. Will check bedside US. [facility] Re consult Note: 06/26/17: Critical care reconsulted for acute desaturation. After patient was sat on the side of the bed and when put back in the bed she acutely desaturated to mid 70s. Placed on nonrebreather and I was asked to evaluate the patient by Dr. Corrales. On my exam patient is in moderate distress, diffuse crackles on the chest. Stat chest x-ray shows acute change from chest x-ray 2 days ago. Bilateral diffuse interstitial and alveolar infiltrates with bilateral pleural effusions consistent with CHF. IV 20 mg Lasix given stat. Payne reinserted. Stat Bumex infusion started and transfer to ICU stat and placed on BiPAP 12 over 5. At this time does not need reintubation but this is a possibility 06/27: Remains on BiPAP overnight, slightly tachypneic but oxygen saturation 97 % on 55% FiO2. Chest x-ray shows improved bilateral infiltrate indicating improving CHF. After receiving additional Lasix and Bumex infusion urine output approximately 800 ml in 24 hours. Bumex infusion was increased to 1 mg per hour. UA shows evidence of UTI. Platelet count dropped to 57, most likely secondary to sepsis. DC Zyvox start vancomycin reconsult ID. Cefepime was added yesterday 06/28: Intubated yesterday noon due to acute worsening of hypoxemic respiratory failure. Remains intubated sedated critically ill though stabilizing. WBC count has normalized to 9.9 but platelet count further decreased to 32. I will increase Solu-Medrol 40 every 8 hours and get hematology consult. BUN/ creatinine 50/1.39, slightly worsened but urine output remains excellent a terminal overnight. Plan for right thoracentesis today after FFP and platelet transfusion. Currently only on 2 mcg/m of Levophed. 2 D Echo yesterday showed increased mean gradient. May need BAV as bridge to TAVR (secondary to flash pulmonary edema and heart failure) 06/29: Patient remains intubated sedated. Remains critically ill. Chest x-ray remained stable to slightly increased pulmonary vascular congestion. Platelet count has further dropped 34, Hb stable at 10.5. Hematology is following on IV steroids and Promacta. Dr. Ortega considering IVIG. With low platelet, Coumadin is on hold. Will start IV Heparin for LE DVT (US 06/07/17) when cleared by Hematology INR is 1.[address] Corrales to decide on BAV. UO 2.6L in 24 hours 06/30: Patient is off sedation more awake follows commands intermittently. On attempted CPAP with pressure support 15 becomes slightly tachypneic. Urine output 2.5 L in 24 hours BUN elevated to 78 creatinine 1.5. CBC downtrending hemoglobin remained stable. Platelet count dropped to 30 without evidence of bleeding. Anticoagulation on hold due to severe thrombocytopenia. Family declines further invasive treatment 07/01: Remains orally intubated on mechanical ventilation. Worsening thrombocytopenia. No active bleeding currently. Family does not want further invasive measures and patient is alternate code currently. They have declined PEG tube placement. 07/02: Remains orally intubated on mechanical ventilation. Failed C Pap trial after 1.5 hours yesterday. Family wants palliative care per discussion with nursing yesterday - defer to Dr. Corrales. 07/03: Awake, orally intubated on mechanical ventilation. Awaiting C Pap trial this morning at the time of my evaluation. 07/04 No events overnight. Remains intubated but awake. On no sedation. Afebrile. Objective Vital Signs Date Time Temp Pulse Resp B/P (MAP) Pulse Ox O2 Delivery O2 Flow Rate FiO2 07/04/17 09:35 95 40 07/04/17 04:00 Mechanical Ventilator 07/04/17 04:00 102 07/04/17 04:00 98.2 14 170/75 (106) Intake and Output 07/04/17 07/04/17 07/05/17 08:00 16:00 00:00 Intake Total 752 ml Output Total 2100 ml Balance -1348 ml Result Diagram: 07/04/17 0438 07/04/17 0438 Other Results Laboratory Tests Test 07/03/17 11:51 07/03/17 13:55 07/04/17 04:38 White Blood Count 10.0 TH/MM3 12.7 TH/MM3 Red Blood Count 3.24 MIL/MM3 3.74 MIL/MM3 Hemoglobin 9.3 GM/DL 10.8 GM/DL Hematocrit 28.1 % 32.5 % Mean Corpuscular Volume 86.5 FL 86.7 FL Mean Corpuscular Hemoglobin 28.7 PG 28.7 PG Mean Corpuscular Hemoglobin Concent 33.2 % 33.1 % Red Cell Distribution Width 16.6 % 17.5 % Platelet Count 55 TH/MM3 105 TH/MM3 Mean Platelet Volume 9.7 FL 10.1 FL Prothrombin Time 14.9 SEC Prothromb Time International Ratio 1.3 RATIO Fibrinogen 183 mg/dL Neutrophils (%) (Auto) 90.3 % Lymphocytes (%) (Auto) 2.6 % Monocytes (%) (Auto) 7.0 % Eosinophils (%) (Auto) 0.0 % Basophils (%) (Auto) 0.1 % Neutrophils # (Auto) 11.4 TH/MM3 Lymphocytes # (Auto) 0.3 TH/MM3 Monocytes # (Auto) 0.9 TH/MM3 Eosinophils # (Auto) 0.0 TH/MM3 Basophils # (Auto) 0.0 TH/MM3 CBC Comment DIFF FINAL Differential Comment Haptoglobin 43 MG/DL Blood Urea Nitrogen 120 MG/DL Creatinine 1.40 MG/DL Random Glucose 192 MG/DL Total Protein 7.0 GM/DL Albumin 4.5 GM/DL Calcium Level 9.3 MG/DL Alkaline Phosphatase 135 U/L Aspartate Amino Transf (AST/SGOT) 23 U/L Alanine Aminotransferase (ALT/SGPT) 50 U/L Total Bilirubin 1.0 MG/DL Sodium Level 149 MEQ/L Potassium Level 4.0 MEQ/L Chloride Level 108 MEQ/L Carbon Dioxide Level 32.0 MEQ/L Anion Gap 9 MEQ/L Estimat Glomerular Filtration Rate 35 ML/MIN Imaging Last Impressions Chest X-Ray 07/03/17 0000 Signed Impressions: Service Date/Time: June 12:03 - CONCLUSION: 1. Mild improved aeration of the right lung compared to the prior exam. 2. There continues to be infiltrates in both lung bases without significant change. Aleksey Au MD Chest CTA 06/27/17 2100 Signed Impressions: Service Date/Time: Wednesday, June 28, 2017 11:33 - CONCLUSION: 1. Limited exam without IV contrast. Aortic root measurements as above. 2. Dense calcification of the mitral valve annulus and the aortic valve. Dense calcification of the coronary arteries. 3. Distal to the embolic coils in the left lower lobe, there is a left basilar consolidation with associated small effusion. 4. On the right, there is patchy airspace disease. Pattern is concerning for possible pneumonic infiltrate. 5. Generalized anasarca may indicate some right heart insufficiency. Joselo Jennings MD Abdomen X-Ray 06/27/17 0000 Signed Impressions: Service Date/Time: Tuesday, June 27, 2017 09:42 - CONCLUSION: Negative for ileus or obstruction. Rajesh Rincon MD FACR Renal Ultrasound 06/26/17 0000 Signed Impressions: Service Date/Time: June 08:51 - CONCLUSION: Normal examination. Alvin Walls MD Tunnelled Chest Tube Removal 06/13/17 Signed Impressions: Service Date/Time: Tuesday, June 13, 2017 00:00 - CONCLUSION: Uncomplicated chest tube removal. Joselo Jennings MD Upper Extremity Ultrasound 06/07/17 Signed Impressions: Service Date/Time: Wednesday, June 07, 2017 18:21 - CONCLUSION: 1. Limited exam but no deep venous thrombosis is identified bilaterally. Jamie Corrales MD Lower Extremity Ultrasound 06/07/17 Signed Impressions: Service Date/Time: Wednesday, June 07, 2017 17:57 - CONCLUSION: 1. Positive bilateral lower extremity deep venous thrombosis, nonocclusive as above. Jamie Corrales MD Head CT 06/07/17 Signed Impressions: Service Date/Time: Wednesday, June 07, 2017 17:01 - CONCLUSION: 1. No acute intracranial abnormality. 2. Extensive subcutaneous air tracking up from the chest. Luc Cain Jr., MD Cervical Spine CT 06/07/17 Signed Impressions: Service Date/Time: Wednesday, June 07, 2017 17:01 - CONCLUSION: 1. Extensive subcutaneous emphysema. 2. Tiny left apical pneumothorax. 3. Diffuse mild degenerative changes without central canal stenosis. Multilevel neural foraminal narrowing. 4. Prevertebral soft tissues obscured by an endotracheal tube and nasogastric tube. Luc Cain Jr., MD Chest Tube Insertion 06/05/17 Signed Impressions: Service Date/Time: May 09:15 - CONCLUSION: Uncomplicated chest tube placement as above. Maxwell Aldana MD Chest CT 06/05/17 Signed Impressions: Service Date/Time: May 08:47 - CONCLUSION: 1. Moderate left-sided hemothorax with associated left lower lobe consolidation which may reflect a combination of compressive atelectasis, aspiration, and potentially lung infarction given recent pulmonary artery embolization. 2. Trace right apical pneumothorax with large bore chest tube in the major fissure and smallbore chest tube in the soft tissues. Significant subcutaneous emphysema extending to the cervicothoracic junction bilaterally. 3. Airspace consolidation in the right lower lobe posteriorly may reflect aspiration. Maxwell Aldana MD Embolization 06/03/17 Signed Impressions: Service Date/Time: Saturday, June 03, 2017 00:00 - CONCLUSION: Left pulmonary artery rupture with successful coil embolization of a lower lobe branch vessel as above. Joselo Jennings MD Objective Remarks GENERAL: Lying in bed off all sedation SKIN: Skin/dry. ENT: Oral cavity is moist. Orotracheally intubated. NECK: Trachea midline. Supple. Positive JVD CARDIOVASCULAR: Remains in atrial fibrillation rate controlled now, but hypertensive. Systolic murmur over apex and LSB. RESPIRATORY: Air entry equally diminished with bilateral crackles, improving, few scattered wheezes. GASTROINTESTINAL: Abdomen Soft, no guarding. BS active. MUSCULOSKELETAL: Limbs well perfused. UE edematous NEUROLOGICAL: Intubated off sedation. Moves extremities, weakly following commands all four extremities Date of Insertion: Jun 27, 2017 Side: Right Location: Internal, Jugular A/P Assessment and Plan Assessment: 89yF with severe aortic stenosis, admitted to ICU after RHC complicated by Pulmonary Artery rupture, pneumothorax secondary to barotrauma, MRSA healthcare associated pneumonia. Now placed back in ICU with acute hypoxic respiratory failure, from flash pulmonary edema due to diastolic CHF and also with sepsis. Worsening acute kidney injury on thrombocytopenia is concerning. Unable to anticoagulate for bilateral DVTs due to severe thrombocytopenia NEURO: - On no sedation. Awake, monitor neuro status. - Holding home sertraline. Tylenol PRN - Initial CT of the head and C-spine negative for acute injury RESP: Acute hypoxemic respiratory failure Pulmonary edema/pleural effusions s/p Left lower pulmonary artery rupture with massive hemorrhage 06/03/17 MRSA pneumonia Previous Large Left hemothorax s/p IR chest tube placement, residual L pneumo after evacuation Previous Bilateral apical pneumothorax Bilateral lower extremity DVT - Transferred to ICU 06/26/17 initiated on BiPAP 12. Intubated 06/27/17 for worsening hypoxemic respiratory failure - Continue with vent support keep sat >92% Becomes tachypneic when pressure-support below 15. - Scheduled DuoNeb every 6 hours and when necessary. Continue INH Budesonide - s/p coil and Gelfoam closure of Left lower pulmonary artery (peripheral small branch) by Rhoda Corrales and Michaela (see resuscitation note on 06/03/17) - Last Extubated 06/16/17. Previously Required re-intubation 06/02 for hypoxemia - Previously s/p chest tube x2 for right pneumothorax on 06/03. New apical chest tube placed 06/06/17 - IR, placed 24 F Left chest tube 06/05 with drainage of 2 L hemothorax, residual pneumothorax present, now resolved - s/p Bronchoscopy on 06/03/17 with removal of blood predominantly from L lung, s/p repeat bronch 06/06, 06/15 - Venous duplex -bilateral lower extremity DVT. Start heparin IV when plt count >35K per hematology CV/Heme: CHF/pulmonary edema Acute Diastolic HF exacerbation Severe Aortic Stenosis Atrial fibrillation with RVR Thrombocytopenia secondary to sepsis and ITP Bilateral lower extremity DVT History of ITP - Echo 06/27 shows severe with mean gradient of 42, LATIA 0.49. Heart failure is secondary to severe aortic stenosis and diastolic dysfunction - Patient's family is not interested in pursuing any further invasive procedures including BAV - High chance of failure, if extubated without valvuloplasty, patient most likely have recurrent heart failure and also has significant weakness - Continue IV steroid for ITP, IV Solu Medrol 40 mg q12 - Continue Promacta for ITP. Hematology Dr. Ortega following, - On Cozaar 50mg daily, Hydralazine 50mg Q8, Cardizem 30mg Q6 - Previously Received 6 units of PRBC, 2 units of FFP and one of platelets 06/03. PARVIN normal LV contractility, volume depletion - 2D Echo 06/04 RV LV function look normal, no PFO. 2 D Echo 06/27 good LV fn, concentric LVH, sev MG 42 GI: Ileus - KUB shows improving ileus06/25, Tube feeds with Jevity - Continue IV Reglan, GI following / Renal: ENZO - Monitor renal function, electrolytes replacement per protocol. -On Lasix 40mg Q6 ID: Sepsis UTI Prev MRSA pneumonia - Continue with abx ( Cefepime) monitor for signs of infections ( Fever, WBC) ENDO: - Replace electrolytes per protocol -On Synthroid 25mcg daily PROPH: - No SCDs due to DVT. IV Protonix 40mg BID, Coumadin on hold, due to thrombocytopenia. LINES: - RIJ central line placed 06/27 accidentally dislodged, new left IJ central line placed 06/28/17 Palliative care consulted to asses with goals of care. Level 3 Renny Wiggins MD Jul 04, 2017 10:48
[2017-07-04] MEDS ORDERED: HYOSCYAMINE 0.5 MG/ML AMP IV PUSH ONE (11:30)
[2017-07-04] MEDS ORDERED: MORPHINE SULFATE 8 MG/ML INJ IV PUSH ONE (11:30)
[2017-07-04] MEDS ORDERED: LORazepam 2 MG/ML VIAL IV PUSH ONE ×2 (11:30→11:45)
[2017-07-04] MEDS ORDERED: MORPHINE SULFATE 4 MG/ML INJ IV PUSH ONE (11:45)
[2017-07-04] MEDS ORDERED: HYOSCYAMINE 0.5 MG/ML AMP IV PUSH PRN (12:00)
[2017-07-04] MEDS ORDERED: LORazepam 2 MG/ML VIAL IV PUSH PRN ×2 (12:00)
[2017-07-04] MEDS ORDERED: LORazepam 2 MG/ML VIAL IV PUSH SCH (12:00)
[2017-07-04] MEDS ORDERED: MORPHINE SULFATE 4 MG/ML INJ IV PUSH PRN (12:00)
[2017-07-04] MEDS ORDERED: MORPHINE SULFATE 4 MG/ML INJ IV PUSH SCH (12:00)
[2017-07-04] MEDS ORDERED: FUROSEMIDE 20 MG/2 ML VIAL IV PUSH PRN (12:00)
[2017-07-04] MEDS ORDERED: MORPHINE SULFATE 8 MG/ML INJ IV PUSH PRN (12:00)
[2017-07-04] MEDS ORDERED: BISACODYL 10 MG SUPP RECTAL PRN (12:00)
[2017-07-04] MEDS ORDERED: ACETAMINOPHEN 650 MG SUPP RECTAL PRN (12:00)
--- NOTE | 2017-07-04 13:59 | PD.CARD.PN ---
Subjective Subjective Remarks Overnight events Aspiration Resp Failure Flash Pulmonary Edema afebrile weaning FIO2 Objective Medications Current Medications Medications (Trade) Dose Ordered Sig/Padmini Route Start Time Stop Time Status Last Admin (Lanoxin) 0.125 mg DAILY PO 06/06/17 09:00 Future Hold 06/28/17 10:09 (Zofran Inj) 4 mg Q6H PRN IV PUSH 06/22/17 19:30 06/23/17 08:40 (SoluMEDROL INJ) 40 mg Q12HR IV PUSH 06/30/17 21:00 07/04/17 09:00 (Morphine Inj) 4 mg Q4HR IV PUSH 07/04/17 12:00 (Morphine Inj) 4 mg Q30M PRN IV PUSH 07/04/17 12:00 (Morphine Inj) 6 mg Q30M PRN IV PUSH 07/04/17 12:00 (Ativan Inj) 1 mg Q4HR IV PUSH 07/04/17 12:00 (Ativan Inj) 1 mg Q1H PRN IV PUSH 07/04/17 12:00 (Ativan Inj) 2 mg Q1H PRN IV PUSH 07/04/17 12:00 (Levsin Inj) 0.25 mg Q4H PRN IV PUSH 07/04/17 12:00 (Tylenol Supp) 650 mg Q4H PRN RECTAL 07/04/17 12:00 (Lasix Inj) 20 mg Q6H PRN IV PUSH 07/04/17 12:00 (Dulcolax Supp) 10 mg DAILY PRN RECTAL 07/04/17 12:00 Vital Signs / I&O Vital Signs Date Time Temp Pulse Resp B/P (MAP) Pulse Ox O2 Delivery O2 Flow Rate FiO2 07/04/17 09:35 95 40 07/04/17 08:00 87 160/65 (96) 07/04/17 07:00 99.4 111 18 131/60 (83) 95 07/04/17 07:00 97 Mechanical Ventilator 40 07/04/17 07:00 84 07/04/17 07:00 40 07/04/17 04:09 95 40 07/04/17 04:00 99 Mechanical Ventilator 40 07/04/17 04:00 102 07/04/17 04:00 98.2 102 14 170/75 (106) 97 07/04/17 04:00 40 07/04/17 00:30 97 40 07/04/17 00:00 96 Mechanical Ventilator 40 07/04/17 00:00 98.0 92 14 167/84 (111) 96 07/04/17 00:00 92 07/04/17 00:00 40 07/03/17 21:38 96 40 07/03/17 20:00 40 07/03/17 20:00 86 07/03/17 20:00 97 Mechanical Ventilator 40 07/03/17 20:00 97.9 87 14 168/80 (109) 97 07/03/17 16:27 97 40 07/03/17 15:00 82 07/03/17 15:00 40 07/03/17 15:00 97 Mechanical Ventilator 40 07/03/17 15:00 97.9 82 15 152/68 (96) 97 I/O 07/03/17 07/03/17 07/03/17 07/04/17 07/04/17 07/04/17 07:00 15:00 23:00 07:00 15:00 23:00 Intake Total 691 ml 545 ml 752 ml Output Total 1030.0 ml 0 ml 1395 ml 2100.0 ml Balance -339.0 ml 0 ml -850 ml -1348.0 ml Intake Oral 0 ml 0 ml IV Total 100 ml 300 ml 100 ml Tube Feeding 391 ml 245 ml 452 ml Other 200 ml 200 ml Output Urine Total 1030 ml 1395 ml 2100 ml Tube Feeding Residual Discard 0 ml 0 ml 0 ml # Bowel Movements 0 0 0 Physical Exam GENERAL: Intubated, pupils reactive, Alert, awake, oriented SKIN: Warm and dry. HEAD: Normocephalic. EYES: No scleral icterus. No injection or drainage. NECK: Supple, trachea midline. No JVD or lymphadenopathy. CARDIOVASCULAR: Irr Irr 2/6SEM no gallops, or rubs. RESPIRATORY: Vented. GASTROINTESTINAL: Abdomen soft, non-tender, nondistended. EXTREMITIES: No cyanosis, or edema. Laboratory Laboratory Tests Test 07/04/17 04:38 White Blood Count 12.7 TH/MM3 Red Blood Count 3.74 MIL/MM3 Hemoglobin 10.8 GM/DL Hematocrit 32.5 % Mean Corpuscular Volume 86.7 FL Mean Corpuscular Hemoglobin 28.7 PG Mean Corpuscular Hemoglobin Concent 33.1 % Red Cell Distribution Width 17.5 % Platelet Count 105 TH/MM3 Mean Platelet Volume 10.1 FL Neutrophils (%) (Auto) 90.3 % Lymphocytes (%) (Auto) 2.6 % Monocytes (%) (Auto) 7.0 % Eosinophils (%) (Auto) 0.0 % Basophils (%) (Auto) 0.1 % Neutrophils # (Auto) 11.4 TH/MM3 Lymphocytes # (Auto) 0.3 TH/MM3 Monocytes # (Auto) 0.9 TH/MM3 Eosinophils # (Auto) 0.0 TH/MM3 Basophils # (Auto) 0.0 TH/MM3 CBC Comment DIFF FINAL Differential Comment Haptoglobin 43 MG/DL Blood Urea Nitrogen 120 MG/DL Creatinine 1.40 MG/DL Random Glucose 192 MG/DL Total Protein 7.0 GM/DL Albumin 4.5 GM/DL Calcium Level 9.3 MG/DL Alkaline Phosphatase 135 U/L Aspartate Amino Transf (AST/SGOT) 23 U/L Alanine Aminotransferase (ALT/SGPT) 50 U/L Total Bilirubin 1.0 MG/DL Sodium Level 149 MEQ/L Potassium Level 4.0 MEQ/L Chloride Level 108 MEQ/L Carbon Dioxide Level 32.0 MEQ/L Anion Gap 9 MEQ/L Estimat Glomerular Filtration Rate 35 ML/MIN Imaging Last Impressions Chest X-Ray 07/03/17 0000 Signed Impressions: Service Date/Time: June 12:03 - CONCLUSION: 1. Mild improved aeration of the right lung compared to the prior exam. 2. There continues to be infiltrates in both lung bases without significant change. Aleksey Au MD Chest CTA 06/27/17 2100 Signed Impressions: Service Date/Time: Wednesday, June 28, 2017 11:33 - CONCLUSION: 1. Limited exam without IV contrast. Aortic root measurements as above. 2. Dense calcification of the mitral valve annulus and the aortic valve. Dense calcification of the coronary arteries. 3. Distal to the embolic coils in the left lower lobe, there is a left basilar consolidation with associated small effusion. 4. On the right, there is patchy airspace disease. Pattern is concerning for possible pneumonic infiltrate. 5. Generalized anasarca may indicate some right heart insufficiency. Joselo Jennings MD Abdomen X-Ray 06/27/17 0000 Signed Impressions: Service Date/Time: Tuesday, June 27, 2017 09:42 - CONCLUSION: Negative for ileus or obstruction. Rajesh Rincon MD FACR Renal Ultrasound 06/26/17 Signed Impressions: Service Date/Time: June 08:51 - CONCLUSION: Normal examination. Alvin Walls MD Tunnelled Chest Tube Removal 06/13/17 Signed Impressions: Service Date/Time: Tuesday, June 13, 2017 00:00 - CONCLUSION: Uncomplicated chest tube removal. Joselo Jennings MD Upper Extremity Ultrasound 06/07/17 Signed Impressions: Service Date/Time: Wednesday, June 07, 2017 18:21 - CONCLUSION: 1. Limited exam but no deep venous thrombosis is identified bilaterally. Jamie Corrales MD Lower Extremity Ultrasound 06/07/17 Signed Impressions: Service Date/Time: Wednesday, June 07, 2017 17:57 - CONCLUSION: 1. Positive bilateral lower extremity deep venous thrombosis, nonocclusive as above. Jamie Corrales MD Head CT 06/07/17 Signed Impressions: Service Date/Time: Wednesday, June 07, 2017 17:01 - CONCLUSION: 1. No acute intracranial abnormality. 2. Extensive subcutaneous air tracking up from the chest. Luc Cain Jr., MD Cervical Spine CT 06/07/17 Signed Impressions: Service Date/Time: Wednesday, June 07, 2017 17:01 - CONCLUSION: 1. Extensive subcutaneous emphysema. 2. Tiny left apical pneumothorax. 3. Diffuse mild degenerative changes without central canal stenosis. Multilevel neural foraminal narrowing. 4. Prevertebral soft tissues obscured by an endotracheal tube and nasogastric tube. Luc Cain Jr., MD Chest Tube Insertion 06/05/17 Signed Impressions: Service Date/Time: May 09:15 - CONCLUSION: Uncomplicated chest tube placement as above. Maxwell Aldana MD Chest CT 06/05/17 Signed Impressions: Service Date/Time: May 08:47 - CONCLUSION: 1. Moderate left-sided hemothorax with associated left lower lobe consolidation which may reflect a combination of compressive atelectasis, aspiration, and potentially lung infarction given recent pulmonary artery embolization. 2. Trace right apical pneumothorax with large bore chest tube in the major fissure and smallbore chest tube in the soft tissues. Significant subcutaneous emphysema extending to the cervicothoracic junction bilaterally. 3. Airspace consolidation in the right lower lobe posteriorly may reflect aspiration. Maxwell Aldana MD Embolization 06/03/17 0000 Signed Impressions: Service Date/Time: Saturday, June 03, 2017 00:00 - CONCLUSION: Left pulmonary artery rupture with successful coil embolization of a lower lobe branch vessel as above. Joselo Jennings MD Assessment and Plan Problem List: (1) Respiratory failure ICD Codes: J96.90 - Respiratory failure, unspecified, unspecified whether with hypoxia or hypercapnia Plan: Acutely ill. Acute on chronic diastolic heart failure in the setting of severe symptomatic aortic stenosis. Per family and patient request they do not want to pursue any aggressive care, rather will like Palliative Care Consult Plan: [employer] per Pallative Care/Hospice (2) Shock, postoperative ICD Codes: T81.10XA - Postprocedural shock unspecified, initial encounter Status: Resolved (3) Pulmonary arterial thrombosis ICD Codes: I26.99 - Other pulmonary embolism without acute cor pulmonale Status: Acute (4) CAD (coronary artery disease) ICD Codes: I25.10 - Atherosclerotic heart disease of [place] coronary artery without angina pectoris (5) Aortic stenosis ICD Codes: I35.0 - Nonrheumatic aortic (valve) stenosis (6) DVT (deep venous thrombosis) ICD Codes: I82.409 - Acute embolism and thrombosis of unspecified deep veins of unspecified lower extremity Problem Qualifiers (1) Respiratory failure: Qualified Codes: J96.01 - Acute respiratory failure with hypoxia (2) DVT (deep venous thrombosis): Brad Page MD Jul 04, 2017 13:59
--- NOTE | 2017-07-04 21:47 | PD.ONC.PN ---
Subjective Subjective Remarks Patient seen earlier in the day critically ill family wants to w/d care palliative care and hospice DNR Objective Data Date Time Temp Pulse Resp B/P (MAP) Pulse Ox O2 Delivery O2 Flow Rate FiO2 07/04/17 13:50 95 Room Air 07/04/17 11:00 95 Mechanical Ventilator 40 07/04/17 11:00 40 07/04/17 11:00 100.8 82 16 152/78 (102) 95 07/04/17 11:00 82 07/04/17 09:35 95 40 07/04/17 08:00 87 160/65 (96) 07/04/17 07:00 99.4 111 18 131/60 (83) 95 07/04/17 07:00 97 Mechanical Ventilator 40 07/04/17 07:00 84 07/04/17 07:00 40 07/04/17 04:09 95 40 07/04/17 04:00 99 Mechanical Ventilator 40 07/04/17 04:00 102 07/04/17 04:00 98.2 102 14 170/75 (106) 97 07/04/17 04:00 40 07/04/17 00:30 97 40 07/04/17 00:00 96 Mechanical Ventilator 40 07/04/17 00:00 98.0 92 14 167/84 (111) 96 07/04/17 00:00 92 07/04/17 00:00 40 07/04/17 07/04/17 07/04/17 07:00 15:00 23:00 Intake Total 752 ml Output Total 2100.0 ml 0 ml Balance -1348.0 ml 0 ml Result Diagram: 07/04/178 07/04/17 043 Laboratory Results Laboratory Tests Test 07/04/17 04:38 White Blood Count 12.7 TH/MM3 Red Blood Count 3.74 MIL/MM3 Hemoglobin 10.8 GM/DL Hematocrit 32.5 % Mean Corpuscular Volume 86.7 FL Mean Corpuscular Hemoglobin 28.7 PG Mean Corpuscular Hemoglobin Concent 33.1 % Red Cell Distribution Width 17.5 % Platelet Count 105 TH/MM3 Mean Platelet Volume 10.1 FL Neutrophils (%) (Auto) 90.3 % Lymphocytes (%) (Auto) 2.6 % Monocytes (%) (Auto) 7.0 % Eosinophils (%) (Auto) 0.0 % Basophils (%) (Auto) 0.1 % Neutrophils # (Auto) 11.4 TH/MM3 Lymphocytes # (Auto) 0.3 TH/MM3 Monocytes # (Auto) 0.9 TH/MM3 Eosinophils # (Auto) 0.0 TH/MM3 Basophils # (Auto) 0.0 TH/MM3 CBC Comment DIFF FINAL Differential Comment Haptoglobin 43 MG/DL Blood Urea Nitrogen 120 MG/DL Creatinine 1.40 MG/DL Random Glucose 192 MG/DL Total Protein 7.0 GM/DL Albumin 4.5 GM/DL Calcium Level 9.3 MG/DL Alkaline Phosphatase 135 U/L Aspartate Amino Transf (AST/SGOT) 23 U/L Alanine Aminotransferase (ALT/SGPT) 50 U/L Total Bilirubin 1.0 MG/DL Sodium Level 149 MEQ/L Potassium Level 4.0 MEQ/L Chloride Level 108 MEQ/L Carbon Dioxide Level 32.0 MEQ/L Anion Gap 9 MEQ/L Estimat Glomerular Filtration Rate 35 ML/MIN Objective Remarks GENERAL:critically il CARDIOVASCULAR: Regular rate and rhythm RESPIRATORY:coarse sounds GASTROINTESTINAL: Abdomen soft, non-tender, nondistended. EXTREMITIES: No cyanosis, or edema. Assessment/Plan Problem List: (1) Chronic ITP (idiopathic thrombocytopenia) ICD Codes: D69.3 - Immune thrombocytopenic purpura Plan: --acute drop in platelet count likely from acute illness, DIC, and consumption. --on Promacta 50 mg daily. --recommend transfusing for platelets less than 20k. --If the family does opt for valvuloplasty would recommend giving 2 units platelets prior and also to hang one during the procedure. --Thrombocytopenia due to sepsis/acute illness--also with hx of ITP --will avoid IVIG due to recent hx of DVT (2) CAD (coronary artery disease) ICD Codes: I25.10 - Atherosclerotic heart disease of [place] coronary artery without angina pectoris Plan: -- Undergone left and right heart catheterization for her TAVR evaluation. -- After right heart cath, she developed acute massive hemoptysis with shock secondary to acute rupture of pulmonary artery. -- She underwent cardiac cath which identified bleeding from a small branch of the left pulmonary artery. Six coils were placed in the left lower artery. The patient was subsequently extubated. However, her respiratory status declined yesterday. She was on BiPap. She was again intubated due to worsening hypoxemic respiratory failure. -- There are plans for valvuloplasty on Friday; however the patient's son and spouse are contemplating comfort care only. (3) DVT (deep venous thrombosis) ICD Codes: I82.409 - Acute embolism and thrombosis of unspecified deep veins of unspecified lower extremity Plan: --no anticoagulation for now due to thrombocytopenia until sustained platelet count of = >35,000 is achieved Assessment 89-year-old female with history of severe aortic stenosis underwent left and right heart catheterization for her TAVR evaluation. After right heart cath, she developed acute massive hemoptysis with shock secondary to acute rupture of pulmonary artery. She was intubated. She became hypotensive and started on dopamine and Shantanu-Synephrine. Levophed was also added. She was a given blood product support with three units of packed red blood cells, two units of FFP, and one unit of platelets. She also developed a V-tach and V-fib and received brief CPR. She was DC cardioverted x1 and returned to spontaneous circulation and sinus rhythm. A PARVIN was performed which showed vigorous LV contraction but the cavity was empty. She received continuous massive fluid resuscitation with multiple crystalloid boluses bicarbonate and calcium. She underwent cardiac cath which identified bleeding from a small branch of the left pulmonary artery. Six coils were placed in the left lower artery. The patient was subsequently extubated. However, her respiratory status declined and she was reintubated. Plan 1. Acute thrombocytopenia due to sepsis/dic 2. DIC/coagulopathy 3. Anemia worsening 4. Respiratory failure 5. DVT - no anticoagulation Family opted for palliative care/hospice/withdrawal of care Problem Qualifiers (1) DVT (deep venous thrombosis): Lucius Ortega MD Jul 04, 2017 21:47
== END 2017-07-04 17:12 | disposition expired | DRG 907 ==
LOC: HDIC 11:04 → HDOC 11:04 → HCVI 17:58 → HDOC 06-04 00:45 → HCVI 06-06 16:50 → HCPC 06-20 15:15 → HCVI 06-26 18:00
PROVIDERS: ADMIT Radiology Vascular & Interventional Radiology; ATTEND Radiology Vascular & Interventional Radiology
PROC: 02L Heart and Great Vessels, Occlusion (ICD-10-PCS; 2017-06-03)
PROC: 5A1955Z Respiratory Ventilation, Greater than 96 Consecutive Hours (ICD-10-PCS; 2017-06-03)
PROC: 0B9M8ZZ Drainage of Bilateral Lungs, Via Natural or Artificial Opening Endoscopic (ICD-10-PCS; 2017-06-03)
PROC: B2111ZZ Fluoroscopy of Multiple Coronary Arteries using Low Osmolar Contrast (ICD-10-PCS; 2017-06-03)
PROC: 0W9930Z Drainage of Right Pleural Cavity with Drainage Device, Percutaneous Approach (ICD-10-PCS; 2017-06-03)
PROC: 0BH17EZ Insertion of Endotracheal Airway into Trachea, Via Natural or Artificial Opening (ICD-10-PCS; 2017-06-03)
PROC: 30253K1 (ICD-10-PCS; 2017-06-03)
PROC: 30253N1 (ICD-10-PCS; 2017-06-03)
PROC: 30253R1 (ICD-10-PCS; 2017-06-03)
PROC: 4A023N8 Measurement of Cardiac Sampling and Pressure, Bilateral, Percutaneous Approach (ICD-10-PCS; principal; 2017-06-03 13:45)
PROC: 0W9930Z Drainage of Right Pleural Cavity with Drainage Device, Percutaneous Approach (ICD-10-PCS; 2017-06-04)
PROC: 02HV33Z Insertion of Infusion Device into Superior Vena Cava, Percutaneous Approach (ICD-10-PCS; 2017-06-04)
PROC: 0B9M8ZZ Drainage of Bilateral Lungs, Via Natural or Artificial Opening Endoscopic (ICD-10-PCS; 2017-06-05)
PROC: 0B9J8ZX Drainage of Left Lower Lung Lobe, Via Natural or Artificial Opening Endoscopic, Diagnostic (ICD-10-PCS; 2017-06-05)
PROC: 0B9F8ZX Drainage of Right Lower Lung Lobe, Via Natural or Artificial Opening Endoscopic, Diagnostic (ICD-10-PCS; 2017-06-05)
PROC: 0W9B30Z Drainage of Left Pleural Cavity with Drainage Device, Percutaneous Approach (ICD-10-PCS; 2017-06-05)
PROC: 0W9930Z Drainage of Right Pleural Cavity with Drainage Device, Percutaneous Approach (ICD-10-PCS; 2017-06-06)
PROC: 0BH18EZ Insertion of Endotracheal Airway into Trachea, Via Natural or Artificial Opening Endoscopic (ICD-10-PCS; 2017-06-11)
PROC: 5A1955Z Respiratory Ventilation, Greater than 96 Consecutive Hours (ICD-10-PCS; 2017-06-11)
PROC: 02HV33Z Insertion of Infusion Device into Superior Vena Cava, Percutaneous Approach (ICD-10-PCS; 2017-06-12)
PROC: 0B9J8ZX Drainage of Left Lower Lung Lobe, Via Natural or Artificial Opening Endoscopic, Diagnostic (ICD-10-PCS; 2017-06-14)
PROC: 0B9F8ZX Drainage of Right Lower Lung Lobe, Via Natural or Artificial Opening Endoscopic, Diagnostic (ICD-10-PCS; 2017-06-14)
PROC: 0BPQX0Z Removal of Drainage Device from Pleura, External Approach (ICD-10-PCS; 2017-06-16)
PROC: 02HV33Z Insertion of Infusion Device into Superior Vena Cava, Percutaneous Approach (ICD-10-PCS; 2017-06-27)
PROC: 0BH17EZ Insertion of Endotracheal Airway into Trachea, Via Natural or Artificial Opening (ICD-10-PCS; 2017-06-27)
PROC: 5A1955Z Respiratory Ventilation, Greater than 96 Consecutive Hours (ICD-10-PCS; 2017-06-27)
PROC: 0W993ZX Drainage of Right Pleural Cavity, Percutaneous Approach, Diagnostic (ICD-10-PCS; 2017-06-28)
PROC: 02HV33Z Insertion of Infusion Device into Superior Vena Cava, Percutaneous Approach (ICD-10-PCS; 2017-06-28)
DX: I97.410 Intraoperative hemorrhage and hematoma of a circulatory system organ or structure complicating a cardiac catheterization (principal); J96.01 Acute respiratory failure with hypoxia; R57.1 Hypovolemic shock; D65 Disseminated intravascular coagulation [defibrination syndrome]; R65.20 Severe sepsis without septic shock; I49.01 Ventricular fibrillation; A41.9 Sepsis, unspecified organism; J69.0 Pneumonitis due to inhalation of food and vomit; G93.41 Metabolic encephalopathy; I50.33 Acute on chronic diastolic (congestive) heart failure; J15.212 Pneumonia due to Methicillin resistant Staphylococcus aureus; J94.2 Hemothorax; D69.3 Immune thrombocytopenic purpura; R04.2 Hemoptysis; I77.2 Rupture of artery; I82.403 Acute embolism and thrombosis of unspecified deep veins of lower extremity, bilateral; I47.2 Ventricular tachycardia; K56.7 Ileus, unspecified; N17.9 Acute kidney failure, unspecified; J95.811 Postprocedural pneumothorax; J90 Pleural effusion, not elsewhere classified; B37.49 Other urogenital candidiasis; T83.511A Infection and inflammatory reaction due to indwelling urethral catheter, initial encounter; T81.19XA Other postprocedural shock, initial encounter; I28.8 Other diseases of pulmonary vessels; I11.0 Hypertensive heart disease with heart failure; L89.151 Pressure ulcer of sacral region, stage 1; I35.0 Nonrheumatic aortic (valve) stenosis; I48.0 Paroxysmal atrial fibrillation; I25.10 Atherosclerotic heart disease of native coronary artery without angina pectoris; Y84.0 Cardiac catheterization as the cause of abnormal reaction of the patient, or of later complication, without mention of misadventure at the time of the procedure; E87.6 Hypokalemia; T81.82XA Emphysema (subcutaneous) resulting from a procedure, initial encounter; L89.619 Pressure ulcer of right heel, unspecified stage; E83.42 Hypomagnesemia; E03.9 Hypothyroidism, unspecified; E78.5 Hyperlipidemia, unspecified; Y84.6 Urinary catheterization as the cause of abnormal reaction of the patient, or of later complication, without mention of misadventure at the time of the procedure; D64.9 Anemia, unspecified; D69.59 Other secondary thrombocytopenia; E86.9 Volume depletion, unspecified; Z51.5 Encounter for palliative care; K59.00 Constipation, unspecified; Y95 Nosocomial condition; Z66 Do not resuscitate; Z79.01 Long term (current) use of anticoagulants; Z85.038 Personal history of other malignant neoplasm of large intestine
CPT/HCPCS: 31500; 31624; 32551; 36011; 36014; 36430; 36556; 36600; 36620; 37244; 70450; 71010; 71250; 72125; 74000; 74174; 75741; 76775; 76937; 80048; 80053; 80076; 80162; 80202; 81001; 82040; 82150; 82272; 82550; 82607; 82728; 82747; 82805; 82945; 82948; 83010; 83540; 83550; 83605; 83615; 83690; 83735; 83880; 83986; 84100; 84132; 84155; 84157; 84443; 84484; 85002; 85007; 85018; 85025; 85027; 85384; 85610; 85730; 86141; 86403; 86850; 86900; 86901; 86920; 86927; 86965; 87015; 87040; 87070; 87071; 87086; 87102; 87116; 87147; 87186; 87205; 87206; 87641; 88305; 89051; 93005; 93306; 93312; 93320; 93325; 93460; 93970; 94002; 94003; 94010; 94150; 94640; 94664; 94667; 94668; 94799; 95819; C1725; C1729; C1760; C1769; C1887; C1893; C9113; C9248; G0269; J0171; J0360; J0461; J0692; J0712; J1100; J1160; J1200; J1265; J1325; J1450; J1644; J1650; J1815; J1940; J2020; J2060; J2212; J2248; J2250; J2270; J2370; J2405; J2543; J2765; J2920; J3010; J3370; J3475; J3480; J7030; J7040; J7050; J7060; J7120; J7626; J7644; P9016; P9017; P9035; P9045; P9047; Q9967